=== PATIENT | male | born 1975 | race American Indian/Alaskan Native ===

== ENCOUNTER 2016-10-25 17:15 | Emergency (ER) | payer MEDICAID ==
[2016-10-25 17:30] VITALS: BMI 22.1
[2016-10-25 17:33] VITALS: TEMP 97.9
[2016-10-25] MEDS ORDERED: Sodium Chloride 0.9% 1,000 ML IV STA (17:53)
[2016-10-25 18:37] LABS: ADD MANUAL DIFF? NO
[2016-10-25 18:48] LABS: BASO # 0.03 K/mm3 (0.0-2.0); BASO % 0.8 % (0.0-3.0); EOS # 0.1 (0.0-0.7); EOS % 1.8 % (1.5-5.0); GRAN # 2.02 (1.4-6.5); GRAN % 53.1 % (50.0-68.0); HEMATOCRIT 37.2 % (42.0-52.0); LYMPH # 1.5 (1.2-3.4); LYMPH % 39.1 % (22.0-35.0); MEAN CELL VOLUME 99.2 fL (80.0-105.0); MEAN CORPUSCULAR HEMOGLOBIN 33.6 pg (25.0-35.0); MEAN CORPUSCULAR HGB CONC 33.9 g/dl (31.0-37.0); MEAN PLATELET VOLUME 9.7 fl (7.0-11.0); MONO # 0.2 (0.1-0.6); MONO % 5.2 % (1.0-6.0); PLATELET COUNT 136 10^3/uL (120.0-450.0); WHITE BLOOD COUNT 3.8 10^3/ul (4.5-11.0)
[2016-10-25 18:55] LABS: INR 1.14 (0.93-1.08)
[2016-10-25 18:57] LABS: ALKALINE PHOSPHATASE 232 U/L (38-133); ALT/SGPT 74 U/L (7-56); AST/SGOT 239 U/L (15-59); BILIRUBIN,TOTAL 1.4 mg/dL (0.2-1.3); BLOOD UREA NITROGEN 5 mg/dL (7-21); CALCIUM 8.6 mg/dL (8.4-10.5); CARBON DIOXIDE 31 mmol/L (21-33); CHLORIDE 102 mmol/L (98-107); GFR AFRICAN-AMERICAN > 60; GLUCOSE,RANDOM 101 mg/dL (70-110); LIPASE 24 U/L (23-300); SODIUM 144 mmol/L (132-148); TOTAL PROTEIN 7.7 g/dL (5.8-8.3)
--- NOTE | 2016-10-25 19:15 | ED PDOC ---
Arrival/HPI - General Chief Complaint: Abdominal Pain Time Seen by Provider: 10/25/16 17:34 Historian: Patient - History of Present Illness Narrative History of Present Illness (Text): 10/25/16 19:12 41yo male present in ED with complaint of epigastric abdominal pain. states pain started today. Admits to nausea, vomiting and diarrhea x one today. Denies fever, chills, melena, hematemesis, hematochezia, chest pain, SOB. Past Medical History - Provider Review Nursing Documentation Reviewed: Yes - Infectious Disease Hx of Infectious Diseases: None - Tetanus Immunization Tetanus Immunization: Unknown - Past Medical History Past Medical History: No Previous - Cardiac Hx Cardiac Disorders: No - Pulmonary Hx Respiratory Disorders: No Hx Tuberculosis: No - Neurological Hx Neurological Disorder: No Hx Seizures: No - HEENT Hx HEENT Disorder: No - Renal Hx Renal Disorder: No - Endocrine/Metabolic Hx Endocrine Disorders: No - Hematological/Oncological Hx Cancer: No - Integumentary Hx Dermatological Disorder: No - Musculoskeletal/Rheumatological Hx Musculoskeletal Disorders: No - Gastrointestinal Hx Gastrointestinal Disorders: Yes Hx Pancreatitis: Yes - Genitourinary/Gynecological Hx Genitourinary Disorders: No Hx Sexually Transmitted Diseases: No - Psychiatric Hx Psychophysiologic Disorder: No Hx Substance Use: No - Past Surgical History Past Surgical History: No Previous - Anesthesia Hx Anesthesia: No Hx Anesthesia Reactions: No Hx Malignant Hyperthermia: No - Suicidal Assessment Feels Threatened In Home Enviroment: No Family/Social History - Physician Review Nursing Documentation Reviewed: Yes Family/Social History: Unknown Family HX Smoking Status: Light Smoker < 10 Cigarettes Daily Hx Alcohol Use: Yes Frequency of alcohol use: Daily Amount per day: 24 Hx Substance Use: No Allergies/Home Meds Allergies/Adverse Reactions: Allergies No Known Allergies Allergy (Verified 10/25/16 17:30) Review of Systems - Physician Review All systems were reviewed & negative as marked: Yes - Review of Systems Constitutional: Normal Eyes: Normal ENT: Normal Respiratory: Normal Cardiovascular: Normal Gastrointestinal: Abdominal Pain, Diarrhea, Nausea, Vomiting. absent: Constipation, Hematochezia, Hematemesis Genitourinary Male: Normal Musculoskeletal: Normal Skin: Normal Neurological: Normal Endocrine: Normal Hemo/Lymphatic: Normal Psychiatric: Normal Physical Exam Vital Signs Reviewed: Yes Vital Signs Temp Pulse Resp BP Pulse Ox 10/25/16 19:23 85 18 152/84 H 95 10/25/16 17:30 97.9 F 68 16 125/89 100 Temperature: Afebrile Blood Pressure: Normal Pulse: Regular Respiratory Rate: Normal Appearance: Positive for: Well-Appearing, Non-Toxic, Comfortable Pain Distress: None Mental Status: Positive for: Alert and Oriented X 3 - Systems Exam Head: Present: Atraumatic, Normocephalic Pupils: Present: PERRL Extroacular Muscles: Present: EOMI Conjunctiva: Present: Normal Mouth: Present: Moist Mucous Membranes Neck: Present: Normal Range of Motion Respiratory/Chest: Present: Clear to Auscultation, Good Air Exchange. No: Respiratory Distress, Accessory Muscle Use Cardiovascular: Present: Regular Rate and Rhythm, Normal S1, S2. No: Murmurs Abdomen: Present: Tenderness (Mild epigastric tenderness with palpation), Normal Bowel Sounds. No: Distention, Peritoneal Signs, Rebound, Guarding, McBurney's Point Tender, Rovsing's Sign Present Back: Present: Normal Inspection Upper Extremity: Present: Normal Inspection. No: Cyanosis, Edema Lower Extremity: Present: Normal Inspection. No: Edema Neurological: Present: GCS=15, CN II-XII Intact, Speech Normal Skin: Present: Warm, Dry, Normal Color. No: Rashes Psychiatric: Present: Alert, Oriented x 3, Normal Insight, Normal Concentration Medical Decision Making ED Course and Treatment: 10/26/16 01:09 Pt presented for states history. He was noted to be comfortable in ED. He requested Dilaudid on presentation to ED, but was advised to wait for his lab result for indication of pancreatits, hence he alleged his pain is secondary to pancreatitis. He was treated with NS and pepcid. On re evaluation he states he feels better. Noted to be tolerating sandwich and juice in ED. Lab was noted for elevated LFT, which was his baseline. Result was DW the pt. He was DC home with a rx of Protonix. Referred to a GI. TRT ED for any new or worsening symptoms. - Lab Interpretations Lab Results: 10/25/16 18:30 10/25/16 18:30 Lab Results 10/25/16 18:30: WBC 3.8 L D, RBC 3.75, Hgb 12.6 L, Hct 37.2 L, MCV 99.2, MCH 33.6, MCHC 33.9, RDW 15.0 H, Plt Count 136, MPV 9.7, Gran % 53.1, Lymph % (Auto ) 39.1 H, Blount % (Auto) 5.2, Eos % (Auto) 1.8, Baso % (Auto) 0.8, Gran # 2.02, Lymph # 1.5, Blount # 0.2, Eos # 0.1, Baso # 0.03, PT 12.3 H, INR 1.14 H, APTT 29.0, Sodium 144, Potassium 3.0 L, Chloride 102, Carbon Dioxide 31, Anion Gap 14 , BUN 5 L, Creatinine 0.6, Est GFR ( Amer) > 60, Est GFR (Non-Af Amer) > 60, Random Glucose 101, Calcium 8.6, Total Bilirubin 1.4 H, AST 239 H, ALT 74 H , Alkaline Phosphatase 232 H, Total Protein 7.7, Albumin 3.8, Globulin 3.9, Albumin/Globulin Ratio 1.0 L, Lipase 24 - Medication Orders Current Medication Orders: Discontinued Medications Famotidine (Pepcid) 20 mg IVP STAT STA Stop: 10/25/16 17:54 Last Admin: 10/25/16 18:35 Dose: 20 MG IVP Administration Document 10/25/16 18:35 [facility] (Rec: 10/25/16 18:36 [place] [id number]) Charges for Administration # of IVP Administrations 1 Sodium Chloride (Sodium Chloride 0.9%) 1,000 mls @ 1,000 mls/hr IV .Q1H STA Stop: 10/25/16 18:52 Last Admin: 10/25/16 18:35 Dose: 1,000 MLS/HR eMAR Start Stop Document 10/25/16 18:35 [facility] (Rec: 10/25/16 18:35 [place] [id number]) Intravenous Solution Start Date 10/25/16 Start Time 18:35 End Date 10/25/16 End time 19:35 Total Infusion Time 60 Disposition/Present on Arrival - Present on Arrival Any Indicators Present on Arrival: No History of DVT/PE: No History of Uncontrolled Diabetes: No Urinary Catheter: No History of Decub. Ulcer: No History Surgical Site Infection Following: None - Disposition Have Diagnosis and Disposition been Completed?: Yes Diagnosis: Abdominal pain Disposition: HOME/ ROUTINE Disposition Time: 19:15 Patient Plan: Discharge Condition: STABLE Discharge Instructions (ExitCare): Abdominal Pain (ED) Additional Instructions: Follow up with a Gastroenterology Return to ED for any new or worsening symptoms Prescriptions: Pantoprazole Sodium [Protonix] 40 mg PO DAILY #15 ect Referrals: PCP,TESSIE [Primary Care Provider] - Follow up with primary João Diamond MD [Staff Provider] - Follow up with primary
[2016-10-25 19:23] VITALS: BP 152/84; PULSE 85; RESP 18; O2SAT 95
== END 2016-10-25 19:41 | disposition home or self-care (01) ==
LOC: ED 17:15
DX: R10.9 Unspecified abdominal pain (principal)
CPT/HCPCS: 80053; 83690; 85025; 85610; 85730; 96361; 96374; 99283; J7040

== ENCOUNTER 2016-10-29 15:23 | Inpatient (IN) | payer MEDICAID, OTHER ==
[2016-10-29 15:23] VITALS: BMI 22.1
[2016-10-29] MEDS ORDERED: Sodium Chloride 0.9% 1,000 ML IV STA (16:44)
[2016-10-29] MEDS ORDERED: Multivitamin (MVI) 10 ML, Thiamine 100 MG, Folic Acid 1 MG in Sodium Chloride 0.9% 1,00... IV ONE (17:11)
[2016-10-29 17:20] LABS: PH,URINE 6.5 (4.7-8.0); URINE APPEARANCE CLEAR (CLEAR); URINE BILIRUBIN SMALL (NEGATIVE); URINE BLOOD NEGATIVE (NEGATIVE); URINE COLOR DARK YELLOW (YELLOW); URINE GLUCOSE (UA) NEGATIVE (NEGATIVE); URINE KETONE TRACE mg/dL (NEGATIVE); URINE LEUKOCYTE ESTERASE NEGATIVE Leu/uL (NEGATIVE); URINE PROTEIN 100 mg/dL (<30 mg/dL)
[2016-10-29 17:24] LABS: ADD MANUAL DIFF? NO; BASO # 0.01 K/mm3 (0.0-2.0); BASO % 0.1 % (0.0-3.0); EOS # 0.1 (0.0-0.7); GRAN # 4.55 (1.4-6.5); GRAN % 67.6 % (50.0-68.0); HEMATOCRIT 35.6 % (42.0-52.0); LYMPH # 1.8 (1.2-3.4); LYMPH % 27.3 % (22.0-35.0); MEAN CELL VOLUME 98.3 fL (80.0-105.0); MEAN CORPUSCULAR HEMOGLOBIN 34.8 pg (25.0-35.0); MEAN CORPUSCULAR HGB CONC 35.4 g/dl (31.0-37.0); MEAN PLATELET VOLUME 10.3 fl (7.0-11.0); MONO # 0.3 (0.1-0.6); PLATELET COUNT 124 10^3/uL (120.0-450.0); RED CELL DISTRIBUTION WIDTH 14.3 % (11.5-14.5); WHITE BLOOD COUNT 6.7 10^3/ul (4.5-11.0)
[2016-10-29 17:37] LABS: ALKALINE PHOSPHATASE 226 U/L (38-133); ALT/SGPT 72 U/L (7-56); AMYLASE 93 U/L (35-125); AST/SGOT 189 U/L (15-59); BILIRUBIN,TOTAL 3.1 mg/dL (0.2-1.3); BLOOD UREA NITROGEN 4 mg/dL (7-21); CALCIUM 9.3 mg/dL (8.4-10.5); CARBON DIOXIDE 35 mmol/L (21-33); CHLORIDE 94 mmol/L (98-107); GFR AFRICAN-AMERICAN > 60; GLUCOSE,RANDOM 96 mg/dL (70-110); LIPASE 13 U/L (23-300); SODIUM 137 mmol/L (132-148); TOTAL PROTEIN 7.8 g/dL (5.8-8.3)
[2016-10-29 17:42] LABS: POTASSIUM 2.8 mmol/L (3.6-5.0)
[2016-10-29] MEDS ORDERED: Potassium Chloride 20 mEq ER Tab PO STA (17:43)
[2016-10-29] MEDS ORDERED: Potassium Chloride 20 mEq 100 ML IVPB ONE (17:43)
[2016-10-29 17:45] LABS: URINE BACTERIA FEW (NEG); URINE EPITHELIAL CELLS 0 - 2 /hpf (0-5); URINE RBC NEGATIVE /hpf (0-2)
--- NOTE | 2016-10-29 19:28 | ED PDOC ---
Arrival/HPI - General Chief Complaint: Abdominal Pain Time Seen by Provider: 10/29/16 16:08 Historian: Patient - History of Present Illness Narrative History of Present Illness (Text): 10/29/16 19:28 41yr old male presents today with epigastric abdominal pain. pt states he has hx of pancreatitis and recently started drinking again and for the past month has been having abdominal pain. pt denies chest pain or shortness of breath. no fever/chills. denies urinary symptoms. pt states he vomited 4 times daily. denies back pain. no other complaints. Past Medical History - Provider Review Nursing Documentation Reviewed: Yes - Travel History Have you recently traveled outside [place] w/in the past 3 mons?: No - Infectious Disease Hx of Infectious Diseases: None - Tetanus Immunization Tetanus Immunization: Unknown - Past Medical History Past Medical History: No Previous - Cardiac Hx Cardiac Disorders: No - Pulmonary Hx Respiratory Disorders: No Hx Tuberculosis: No - Neurological Hx Neurological Disorder: No Hx Seizures: No - HEENT Hx HEENT Disorder: No - Renal Hx Renal Disorder: No - Endocrine/Metabolic Hx Endocrine Disorders: No - Hematological/Oncological Hx Cancer: No - Integumentary Hx Dermatological Disorder: No - Musculoskeletal/Rheumatological Hx Musculoskeletal Disorders: No - Gastrointestinal Hx Gastrointestinal Disorders: Yes Hx Pancreatitis: Yes - Genitourinary/Gynecological Hx Genitourinary Disorders: No Hx Sexually Transmitted Diseases: No - Psychiatric Hx Psychophysiologic Disorder: No Hx Substance Use: No - Past Surgical History Past Surgical History: No Previous - Anesthesia Hx Anesthesia: No Hx Anesthesia Reactions: No Hx Malignant Hyperthermia: No - Suicidal Assessment Feels Threatened In Home Enviroment: No Family/Social History - Physician Review Nursing Documentation Reviewed: Yes Family/Social History: Unknown Family HX Smoking Status: Light Smoker < 10 Cigarettes Daily Hx Alcohol Use: Yes Amount per day: 24 Hx Substance Use: No Allergies/Home Meds Allergies/Adverse Reactions: Allergies No Known Allergies Allergy (Verified 10/29/16 16:02) Review of Systems - Review of Systems Constitutional: absent: Fatigue, Fevers Respiratory: absent: SOB, Cough Cardiovascular: absent: Chest Pain, Palpitations Gastrointestinal: Abdominal Pain, Nausea, Vomiting. absent: Constipation, Diarrhea Genitourinary Male: absent: Dysuria, Frequency, Hematuria Musculoskeletal: absent: Arthralgias, Back Pain, Neck Pain Skin: absent: Rash, Pruritis Neurological: absent: Headache, Dizziness Physical Exam Vital Signs Reviewed: Yes Vital Signs Temp Pulse Resp BP Pulse Ox 10/29/16 19:51 98.6 F 10/29/16 19:49 88 16 146/111 H 100 10/29/16 17:23 79 18 148/89 97 10/29/16 15:57 99.5 F 88 18 151/95 H 97 Temperature: Afebrile Blood Pressure: Hypertensive Pulse: Regular Respiratory Rate: Normal Appearance: Positive for: Well-Appearing, Non-Toxic, Comfortable Pain Distress: None Mental Status: Positive for: Alert and Oriented X 3 - Systems Exam Head: Present: Atraumatic Mouth: Present: Moist Mucous Membranes Neck: Present: Normal Range of Motion Respiratory/Chest: Present: Clear to Auscultation, Good Air Exchange. No: Respiratory Distress, Accessory Muscle Use Cardiovascular: Present: Regular Rate and Rhythm, Normal S1, S2. No: Murmurs Abdomen: Present: Tenderness (+ epigastric and luq tenderness), Normal Bowel Sounds. No: Distention, Peritoneal Signs, Rebound, Guarding, McBurney's Point Tender Back: Present: Normal Inspection. No: CVA Tenderness Upper Extremity: Present: Normal Inspection Lower Extremity: Present: Normal Inspection Neurological: Present: GCS=15, Speech Normal Skin: Present: Warm, Dry, Normal Color. No: Rashes Psychiatric: Present: Alert, Oriented x 3 Medical Decision Making ED Course and Treatment: 10/29/16 19:30 Patient is nontoxic well appearing with stable vital signs presenting with epigastric and luq/ruq abdominal pain CBC wnl CMP: k; 2.8 elevated LFTS, 3.1 bili Amylase wnl Lipase wnl Urinalysis + nitrates + trichomonasis Ultrasound: FINDINGS: Gallbladder: Appears mildly contracted. Contains a 5 x 4.4 mm round, echogenic, non-shadowing, non-mobile focus, located in the gallbladder fundus, most likely representing a small gallbladder polyp. No definite shadowing gallstones seen. No significant gallbladder wall thickening noted. No evidence of pericholecystic fluid. Reportedly negative sonographic Alvarnega's sign. Common bile duct: Measures 7.7 mm in diameter (normal less than 6 mm). Liver: Demonstrates diffusely increased parenchymal echogenicity, most compatible with fatty infiltration. Otherwise within normal limits in appearance. Measures 14 cm in length. Normal flow seen in the main portal vein on color and Doppler imaging. Pancreas: Incompletely seen due to gas. Grossly normal in appearance sonographically. The pancreatic calcifications seen on the prior CT abdomen are not well visualized by ultrasound. Right kidney: Within normal limits in appearance. Measures 11 cm in length. No evidence of hydronephrosis. Left kidney: Within normal limits in appearance. Measures 10.4 cm in length. No evidence of hydronephrosis. Spleen: Poorly seen due to gas. Grossly normal in appearance. Measures 8.3 cm in length. Aorta: Imaged portions appear unremarkable. Flow is seen on color and Doppler imaging. IVC: Imaged portions appear unremarkable. Flow is seen on color and Doppler imaging. IMPRESSION: Mild dilatation of the common bile duct, 7.7 mm, cause not identified. Recommend correlation with LFTs for laboratory evidence of biliary obstruction. Otherwise, no evidence of significant acute process. 5 mm gallbladder polyp. No evidence of gallstones or acute cholecystitis. See above for remaining findings. pt had ct of abd/pelvis; last month. Patient reassessment: after protonix patient sleeping in er blood cultures pending zosyn IV for UTI pt was not treated for trichomoniasis in the emergency room as the patient has been drinking alcohol today Case discussed in depth with Dr. valenzuela accepts admission to telemetry for hypokalemia, common bile duct dilatation of abdominal pain and alcohol abuse elevated liver function tests The patient will need further evaluation for the possibility of biliary obstruction. will place the patient on tele for hypokalemia with concern for the development of possible etoh withdrawal. Discussed all results with patient in depth Impression: Hypokalemia,, and bile duct dilatation, abdominal pain, alcohol abuse, trichomoniasis admit tele - Medication Orders Current Medication Orders: Piperacillin Sod/Tazobactam Sod (Zosyn 3.375 In Ns 100ml) 100 mls @ 200 mls/hr IVPB STAT STA PRN Reason: Protocol Stop: 10/29/16 20:44 Discontinued Medications Sodium Chloride (Sodium Chloride 0.9%) 1,000 mls @ 999 mls/hr IV .Q1H1M STA Stop: 10/29/16 17:44 Last Admin: 10/29/16 17:23 Dose: 999 MLS/HR eMAR Start Stop Document 10/29/16 17:23 (Rec: 10/29/16 17:23 [facility] [id number]) Intravenous Solution Start Date 10/29/16 Start Time 17:23 Multivitamins/Vitamin C 10 ml/Thiamine HCl 100 mg/ Folic Acid 1 mg/ Sodium Chloride 1,011.2 mls @ 1,000 mls/hr IV .Q1H1M ONE Stop: 10/29/16 18:11 Last Admin: 10/29/16 19:39 Dose: 1,000 MLS/HR eMAR Start Stop Document 10/29/16 19:39 ALIE (Rec: 10/29/16 19:39 [id number]) Intravenous Solution Start Date 10/29/16 Start Time 19:39 End Date 10/29/16 End time 20:39 Total Infusion Time 60 Potassium Chloride (Potassium Chloride 20 Meq/100 Ml) 100 mls @ 50 mls/hr IVPB ONCE ONE Stop: 10/29/16 19:42 Last Admin: 10/29/16 18:27 Dose: 50 MLS/HR eMAR Start Stop Document 10/29/16 18:27 (Rec: 10/29/16 18:28 [facility] [id number]) Intravenous Solution Start Date 10/29/16 Start Time 18:28 Morphine Sulfate (Morphine) 4 mg IVP STAT STA Stop: 10/29/16 20:18 Ondansetron HCl (Zofran Inj) 4 mg IVP STAT STA Stop: 10/29/16 16:52 Last Admin: 10/29/16 17:23 Dose: 4 MG IVP Administration Document 10/29/16 17:23 (Rec: 10/29/16 17:23 [facility] [id number]) Charges for Administration # of IVP Administrations 1 Pantoprazole Sodium (Protonix Inj) 40 mg IVP STAT STA Stop: 10/29/16 16:51 Last Admin: 10/29/16 17:23 Dose: 40 MG IVP Administration Document 10/29/16 17:23 (Rec: 10/29/16 17:23 [facility] [id number]) Charges for Administration # of IVP Administrations 1 Potassium Chloride (K-Dur 20 Meq Er Tab) 40 meq PO STAT STA Stop: 10/29/16 17:44 Last Admin: 10/29/16 18:21 Dose: 40 MEQ ED OBSERVATION Date of observation admission: 10/29/16 Time of observation admission: 16:45 - Observation admission statement Patient is being placed in observation because:: abdominal pain - Goals of Observation Goals of observation are:: improvement in symptoms - Progress Note Progress Note: 10/29/16 18:30 pt sleeping in er. no distress. 10/29/16 20:32 pt c/o pain; morphine added. Disposition/Present on Arrival - Present on Arrival Any Indicators Present on Arrival: No History of DVT/PE: No History of Uncontrolled Diabetes: No Urinary Catheter: No History of Decub. Ulcer: No History Surgical Site Infection Following: None - Disposition Have Diagnosis and Disposition been Completed?: Yes Diagnosis: Abdominal pain, Trichomonas infection, Common bile duct dilatation, Urinary tract infection, Elevated LFTs Disposition: HOSPITALIZED Disposition Time: 20:32 Patient Plan: Telemetry Patient Problems: Current Active Problems Problem Status Diagnosed Abdominal pain Acute Trichomonas infection Acute Condition: FAIR
--- NOTE | 2016-10-29 20:13 | US ---
EXAM: US Abdomen Complete CLINICAL HISTORY: 41 years old, male; Pain; Abdominal pain; Epigastric; Additional info: Epigastric abd pain TECHNIQUE: Real-time ultrasound of the abdomen (complete) with image documentation. EXAM DATE/TIME: 10/29/2016 5:21 PM COMPARISON: Prior CT abdomen of 09/21/2016 FINDINGS: Gallbladder: Appears mildly contracted. Contains a 5 x 4.4 mm round, echogenic, non-shadowing, non-mobile focus, located in the gallbladder fundus, most likely representing a small gallbladder polyp. No definite shadowing gallstones seen. No significant gallbladder wall thickening noted. No evidence of pericholecystic fluid. Reportedly negative sonographic Alvarenga's sign. Common bile duct: Measures 7.7 mm in diameter (normal less than 6 mm). Liver: Demonstrates diffusely increased parenchymal echogenicity, most compatible with fatty infiltration. Otherwise within normal limits in appearance. Measures 14 cm in length. Normal flow seen in the main portal vein on color and Doppler imaging. Pancreas: Incompletely seen due to gas. Grossly normal in appearance sonographically. The pancreatic calcifications seen on the prior CT abdomen are not well visualized by ultrasound. Right kidney: Within normal limits in appearance. Measures 11 cm in length. No evidence of hydronephrosis. Left kidney: Within normal limits in appearance. Measures 10.4 cm in length. No evidence of hydronephrosis. Spleen: Poorly seen due to gas. Grossly normal in appearance. Measures 8.3 cm in length. Aorta: Imaged portions appear unremarkable. Flow is seen on color and Doppler imaging. IVC: Imaged portions appear unremarkable. Flow is seen on color and Doppler imaging. IMPRESSION: Mild dilatation of the common bile duct, 7.7 mm, cause not identified. Recommend correlation with LFTs for laboratory evidence of biliary obstruction. Otherwise, no evidence of significant acute process. 5 mm gallbladder polyp. No evidence of gallstones or acute cholecystitis. See above for remaining findings.
[2016-10-29] MEDS ORDERED: Piperacillin/Tazobact 3.375 gm 100 ML IVPB STA (20:15)
[2016-10-29] MEDS ORDERED: Morphine 4 mg/ml ISec IVP STA (20:17)
[2016-10-29] MEDS: Potassium Chloride 40 mEq/30 ml LIQ UD PO SCH (22:41)
--- NOTE | 2016-10-30 00:12 | CP.PCM.HP ---
<BhupinderKanu - Last Filed: 10/30/16 00:09> History of Present Illness - History of Present Illness History of Present Illness: Kanu Roe D.O. 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 Patient states that he started to get some pains but ignored it, and then during the day he began to get the pain again, epigastric, 04/30, intermittent, stabbing in nature, radiating outwards, not associated with alleviating or aggravating factors, but associated with nausea and multiple episodes of NBNB vomiting. Patient states that the pain is similar to his previous episodes but much worse in intensity. Patient admits that he has cut down on his drinking but still will drink about two 24 oz cans of 14% alcohol [place] on average, although today he drank 4 by 2pm. Patient when asked does admit that he has noted some yellowing in his eyes. Patient denies any other symptoms, including dysuria. Patient states that he has been defecating "a lot" but it has not exactly been diarrhea, just frequently, and that it has been somewhat dark. PMD: none PMH: as above PSH: denies SH: chronic alcoholism as noted above, 1/2ppd for 20 years for 10 pack years, ecstasy use for 2 months many years ago FH: mother and father had HTN, father also had DM Meds: denied Allergies: NKA Present on Admission - Present on Admission Any Indicators Present on Admission: No Review of Systems - Constitutional Constitutional: Chills, Fatigue. absent: Anorexia, Headache - EENT Eyes: absent: Blind Spots, Blurred Vision Ears: absent: Decreased Hearing, Ear Discharge Nose/Mouth/Throat: absent: Epistaxis, Nasal Congestion - Cardiovascular Cardiovascular: absent: Chest Pain, Dyspnea - Respiratory Respiratory: absent: Cough, Dyspnea, Hemoptysis - Gastrointestinal Gastrointestinal: Abdominal Pain, Nausea, Vomiting. absent: Constipation, Dysphagia - Genitourinary Genitourinary: absent: Dysuria, Flank Pain, Hematuria - Musculoskeletal Musculoskeletal: absent: Muscle Weakness, Myalgias - Integumentary Integumentary: Jaundice. absent: Pruritus, Rash, Skin Ulcer, Sores - Neurological Neurological: absent: Dizziness, Numbness, Focal Weakness, Loss of Vision Past Patient History - Infectious Disease Hx of Infectious Diseases: None - Tetanus Immunizations Tetanus Immunization: Unknown - Past Social History Smoking Status: Light Smoker < 10 Cigarettes Daily - CARDIAC Hx Cardiac Disorders: No - PULMONARY Hx Respiratory Disorders: No Hx Tuberculosis: No - NEUROLOGICAL Hx Neurological Disorder: No Hx Seizures: No - HEENT Hx HEENT Problems: No - RENAL Hx Chronic Kidney Disease: No - ENDOCRINE/METABOLIC Hx Endocrine Disorders: No - HEMATOLOGICAL/ONCOLOGICAL Hx Cancer: No - INTEGUMENTARY Hx Dermatological Problems: No - MUSCULOSKELETAL/RHEUMATOLOGICAL Hx Musculoskeletal Disorders: No - GASTROINTESTINAL Hx Gastrointestinal Disorders: Yes Hx Pancreatitis: Yes - GENITOURINARY/GYNECOLOGICAL Hx Genitourinary Disorders: No Hx Sexually Transmitted Disorders: No - PSYCHIATRIC Hx Psychophysiologic Disorder: No Hx Substance Use: No - SURGICAL HISTORY Hx Surgeries: No - ANESTHESIA Hx Anesthesia: No Hx Anesthesia Reactions: No Hx Malignant Hyperthermia: No Meds Allergies/Adverse Reactions: Allergies Allergy/AdvReac Type Severity Reaction Status Date / Time No Known Allergies Allergy Verified 10/29/16 16:02 Physical Exam - Constitutional Additional comments: well developed, skinny male in NAD - Head Exam Head Exam: ATRAUMATIC, NORMOCEPHALIC - Eye Exam Eye Exam: EOMI, PERRL, Scleral icterus - ENT Exam ENT Exam: Normal Oropharynx Additional comments: oropharynx is pink and dry - Neck Exam Neck exam: Positive for: Full Rom. Negative for: Tenderness - Respiratory Exam Respiratory Exam: Clear to Auscultation Bilateral. absent: Rales, Rhonchi, Wheezes - Cardiovascular Exam Cardiovascular Exam: RRR, +S1, +S2. absent: Gallop, Rubs, Systolic Murmur - GI/Abdominal Exam GI & Abdominal Exam: Guarding (mild at epigastrium), Normal Bowel Sounds, Soft, Tenderness (epigastric). absent: Distended - Extremities Exam Extremities exam: Positive for: normal capillary refill. Negative for: calf tenderness, pedal edema, tenderness - Back Exam Back exam: absent: paraspinal tenderness, vertebral tenderness - Neurological Exam Neurological exam: Alert, CN II-XII Intact, Oriented x3 Additional comments: mild UE tremor noted, mild asterixis - Skin Skin Exam: Dry, Intact Results - Vital Signs Recent Vital Signs: Last Vital Signs Temp 98.1 F 10/29/16 23:13 Pulse 61 10/29/16 23:13 Resp 16 10/29/16 23:13 BP 171/110 H 10/29/16 22:24 Pulse Ox 100 10/29/16 23:13 - Labs Result Diagrams: 10/29/16 17:28 10/29/16 17:28 Assessment & Plan - Assessment and Plan (Free Text) Assessment: 41 year old male with a PMH of alcoholism and chronic pancreatitis who presents with complaints of abdominal pain since last night Plan: 1. Abdominal pain with jaundice and transaminitis Possibly related to his dehydration vs complications from his chronic pancreatitis such as a stricture or hepatitis GI consulted Hepatitis panel ordered Will start on NS + 20 KCl @ 125 No leukocytosis Afebrile 2. Chronic alcoholism Finished banana bag Started on ativan 2q6 PO and 1q2 IV PRN Fluids as mentioned above [facility] protocol in place Had a lengthy conversation about alcohol abuse, patient somewhat open to getting help, will think about it and let us know 3. Hypokalemia Likely 2/2 vomiting Repleted with PO and IV Will check magnesium and replace if needed Will repeat CMP tomorrow AM and monitor 4. High blood pressure Likely a result of his withdrawing Given ativan 1 stat Will be monitoring closely at this time and not begin medications until we have more data points and we can control his withdrawal 5. Trichominiasis Will give metronidazole tomorrow given his recent alcohol use Patient was seen and examined at bedside and case was discussed at length with attending physician. - Date & Time Date: 10/30/16 Time: 00:09 <Henrry Smith P - Last Filed: 11/11/16 20:13> Results - Vital Signs Recent Vital Signs: Last Vital Signs Temp 98 F 11/01/16 08:45 Pulse 82 11/01/16 10:05 Resp 20 11/01/16 08:45 BP 150/90 11/01/16 10:05 Pulse Ox 98 11/01/16 08:45 - Labs Result Diagrams: 11/01/16 10:10 11/01/16 10:10 Attending/Attestation - Attestation I have personally seen and examined this patient.: Yes I have fully participated in the care of the patient.: Yes I have reviewed all pertinent clinical information: Yes
[2016-10-30] MEDS: Potassium Chloride 40 mEq/30 ml LIQ UD PO SCH ×3 (03:20→10:42)
[2016-10-30 07:40] LABS: ADD MANUAL DIFF? NO
[2016-10-30 07:49] LABS: BASO # 0.02 K/mm3 (0.0-2.0); BASO % 0.4 % (0.0-3.0); EOS # 0.1 (0.0-0.7); EOS % 1.5 % (1.5-5.0); GRAN % 63.9 % (50.0-68.0); HEMATOCRIT 33.2 % (42.0-52.0); LYMPH # 1.6 (1.2-3.4); LYMPH % 29.7 % (22.0-35.0); MEAN CELL VOLUME 101.2 fL (80.0-105.0); MEAN CORPUSCULAR HEMOGLOBIN 33.8 pg (25.0-35.0); MEAN CORPUSCULAR HGB CONC 33.4 g/dl (31.0-37.0); MEAN PLATELET VOLUME 10.7 fl (7.0-11.0); MONO # 0.2 (0.1-0.6); MONO % 4.5 % (1.0-6.0); PLATELET COUNT 120 10^3/uL (120.0-450.0); RED CELL DISTRIBUTION WIDTH 14.2 % (11.5-14.5); WHITE BLOOD COUNT 5.3 10^3/ul (4.5-11.0)
[2016-10-30 08:08] LABS: ALKALINE PHOSPHATASE 192 U/L (38-133); ALT/SGPT 59 U/L (7-56); AST/SGOT 201 U/L (15-59); BILIRUBIN,DIRECT 0.4 mg/dL (0.0-0.4); BILIRUBIN,TOTAL 5.1 mg/dL (0.2-1.3); BLOOD UREA NITROGEN 3 mg/dL (7-21); CALCIUM 8.8 mg/dL (8.4-10.5); CARBON DIOXIDE 30 mmol/L (21-33); CHLORIDE 103 mmol/L (95-110); GFR AFRICAN-AMERICAN > 60; GLUCOSE,RANDOM 105 mg/dL (70-110); POTASSIUM 4.7 mmol/L (3.6-5.0); SODIUM 138 mmol/L (132-148); TOTAL PROTEIN 6.4 g/dL (5.8-8.3)
--- NOTE | 2016-10-30 08:50 | CP.PCM.CON ---
<Radha Liang - Last Filed: 10/30/16 10:28> History of Present Illness - History of Present Illness History of Present Illness: Gastroenterology Fellow/PGY4 Consult Note 41 year old male with history of Polysubstance Abuse (alcohol, tobacco, ecstasy ) and chronic pancreatitis presenting with abdominal pain. Patient describes progressive epigastric pain without radiation to back, pain scale 10/10. He had three 24 ounce beers yesterday with last drink at 1PM prior to ER presentation. Associated chills, sweats, three bilious vomitus episodes, and two watery diarrhea episodes. Denies recent antibiotics, sick contacts, recent travel, bloating, indigestion, heartburn, chest pain, shortness of breath, melena, hematochezia, hematemesis, or unintentional weight loss. States quit ecstasy few months ago after use for one month. No prior EGD or colonoscopy. Family- Parents- Hypertension, Father-Diabetes; denies colon cancer, pancreatic cancer Social-1/[id number] years, 3-5 24-ounce beers/day x 10 years, ecstasy x 1 month, quit few months ago Surgery-none Review of Systems - Review of Systems Review of Systems: A 12-point review of systems negative except for as above Past Patient History - Infectious Disease Hx of Infectious Diseases: None - Tetanus Immunizations Tetanus Immunization: Unknown - Past Social History Smoking Status: Light Smoker < 10 Cigarettes Daily - CARDIAC Hx Cardiac Disorders: No - PULMONARY Hx Respiratory Disorders: No Hx Tuberculosis: No - NEUROLOGICAL Hx Neurological Disorder: No Hx Seizures: No - HEENT Hx HEENT Problems: No - RENAL Hx Chronic Kidney Disease: No - ENDOCRINE/METABOLIC Hx Endocrine Disorders: No - HEMATOLOGICAL/ONCOLOGICAL Hx Cancer: No - INTEGUMENTARY Hx Dermatological Problems: No - MUSCULOSKELETAL/RHEUMATOLOGICAL Hx Musculoskeletal Disorders: No - GASTROINTESTINAL Hx Gastrointestinal Disorders: Yes Hx Pancreatitis: Yes - GENITOURINARY/GYNECOLOGICAL Hx Genitourinary Disorders: No Hx Sexually Transmitted Disorders: No - PSYCHIATRIC Hx Psychophysiologic Disorder: No Hx Substance Use: No - SURGICAL HISTORY Hx Surgeries: No Hx Amputation: No Hx Appendectomy: No Hx Cardiac Catheterization: No Hx Cholecystectomy: No Hx Coronary Stent: No Hx Gastric Bypass Surgery: No Hx Hysterectomy: No Hx Joint Replacement: No Hx Kidney Transplant: No Hx Liver Transplant: No Hx Mastectomy: No Hx Musculoskeletal Surgery: No Hx Open Heart Surgery: No Hx Orthopedic Surgery: No Hx Splenectomy: No Hx Valve Replacement: No - ANESTHESIA Hx Anesthesia: No Hx Anesthesia Reactions: No Hx Malignant Hyperthermia: No Meds Allergies/Adverse Reactions: Allergies Allergy/AdvReac Type Severity Reaction Status Date / Time No Known Allergies Allergy Verified 10/29/16 16:02 - Medications Medications: Current Medications Folic Acid (Folic Acid) 1 mg PO DAILY [facility] Potassium Chloride 20 meq/ (Sodium Chloride) 1,010 mls @ 125 mls/hr IV .Q8H5M [facility] Last Admin: 10/30/16 06:16 Dose: 125 mls/hr Lorazepam (Ativan) 2 mg PO Q6H [facility] PRN Reason: Protocol Last Admin: 10/30/16 05:14 Dose: 2 mg Lorazepam (Ativan) 1 mg IVP Q2H PRN; Protocol PRN Reason: withdrawal Potassium Chloride (Potassium Chloride Oral Soln) 40 meq PO Q4H [facility] Stop: 10/30/16 10:31 Last Admin: 10/30/16 06:55 Dose: 40 meq Thiamine HCl (Vitamin B1 Tab) 100 mg PO DAILY [facility] Physical Exam - Constitutional Appears: Non-toxic, No Acute Distress - Head Exam Head Exam: ATRAUMATIC, NORMOCEPHALIC - Eye Exam Eye Exam: EOMI, PERRL, Scleral icterus Pupil Exam: PERRL. absent: Miosis, Mydriatic - ENT Exam ENT Exam: Mucous Membranes Moist, Normal Oropharynx - Neck Exam Neck exam: Positive for: Full Rom, Normal Inspection - Respiratory Exam Respiratory Exam: Clear to Auscultation Bilateral. absent: Rales, Rhonchi, Wheezes - Cardiovascular Exam Cardiovascular Exam: RRR, +S1, +S2. absent: Gallop, Rubs - GI/Abdominal Exam GI & Abdominal Exam: Guarding, Normal Bowel Sounds, Soft, Tenderness. absent: Distended, Firm, Organomegaly, Rebound, Rigid Additional comments: epigastric tenderness to palpation - Extremities Exam Extremities exam: Positive for: normal inspection. Negative for: pedal edema - Neurological Exam Neurological exam: Alert - Psychiatric Exam Psychiatric exam: Normal Affect, Normal Mood - Skin Skin Exam: Dry, Intact, Normal Color, Warm Results - Vital Signs Recent Vital Signs: Last Vital Signs Temp 98.2 F 10/30/16 06:00 Pulse 56 L 10/30/16 06:00 Resp 18 10/30/16 06:00 BP 158/96 H 10/30/16 06:00 Pulse Ox 100 10/30/16 06:00 - Labs Result Diagrams: 10/30/16 07:00 10/30/16 07:00 Labs: Laboratory Results - last 24 hr 10/30/16 07:00 WBC 5.3 D RBC 3.28 L Hgb 11.1 L Hct 33.2 L MCV 101.2 MCH 33.8 MCHC 33.4 RDW 14.2 Plt Count 120 MPV 10.7 Gran % 63.9 Lymph % (Auto) 29.7 [place] % (Auto) 4.5 Eos % (Auto) 1.5 Baso % (Auto) 0.4 Gran # 3.40 Lymph # 1.6 [place] # 0.2 Eos # 0.1 Baso # 0.02 Sodium 138 Potassium 4.7 Chloride 103 Carbon Dioxide 30 Anion Gap 10 BUN 3 L Creatinine 0.7 Est GFR ( Amer) > 60 Est GFR (Non-Af Amer) > 60 Random Glucose 105 Calcium 8.8 Total Bilirubin 5.1 H Direct Bilirubin 0.4 AST 201 H ALT 59 H Alkaline Phosphatase 192 H Total Protein 6.4 Albumin 3.2 Globulin 3.2 Albumin/Globulin Ratio 1.0 L HIV-1 Ab Rapid Screen Non reactive Assessment & Plan - Assessment and Plan (Free Text) Assessment: 41 year old male with history of Polysubstance Abuse (alcohol, tobacco, ecstasy ) and chronic pancreatitis presenting with epigastric pain. Laboratory findings of unconjugated hyperbilirubinemia and transaminitis. Ultrasound showing 7.7mm CBD dilatation and 5 x 4.4mm gallbladder polyp. No prior EGD or colonoscopy. Plan: >likely alcoholic hepatitis >pending PT/INR to calculate DF- evaluate for utility of steroid therapy >obtain MRCP to evaluate for choledocholithiasis, mass lesion >pending Hepatitis panel, autoimmune workup, GGT >evaluate for hemolysis- haptoglobin, reticulocyte count, LDH >ordered APAP, pending UDS >supportive care: IVFs, antiemetics, pain control >U/A-trichomonas- medical team managing >further recommendations based on results of workup <Angel Joyner - Last Filed: 10/30/16 15:46> Meds - Medications Medications: Current Medications Folic Acid (Folic Acid) 1 mg PO DAILY [facility] Last Admin: 10/30/16 09:43 Dose: 1 mg Folic Acid 1 mg/ Thiamine HCl 100 mg/ Multivitamins/Vitamin C 10 ml/ Dextrose 1 ,011.2 mls @ 100 mls/hr IV .Q10H7M [facility] Last Admin: 10/30/16 10:43 Dose: 100 mls/hr Dextrose/Sodium Chloride (Dextrose 5%/0.9% Ns 1000 Ml) 1,000 mls @ 125 mls/hr IV .Q8H [facility] Lorazepam (Ativan) 2 mg PO Q6H [facility] PRN Reason: Protocol Last Admin: 10/30/16 10:43 Dose: 2 mg Lorazepam (Ativan) 1 mg IVP Q2H PRN; Protocol PRN Reason: withdrawal Morphine Sulfate (Morphine) 1 mg IVP Q4H PRN PRN Reason: Pain, Mild (1-3) Last Admin: 10/30/16 12:37 Dose: 1 mg Multivitamins/Vitamin C (Multi-Delyn Liquid) 15 ml PO DAILY [facility] Last Admin: 10/30/16 13:40 Dose: Not Given Nicotine (Nicoderm Cq) 1 patch TD DAILY [facility] Last Admin: 10/30/16 10:42 Dose: 1 patch Pantoprazole Sodium (Protonix Inj) 40 mg IVP DAILY [facility] Last Admin: 10/30/16 10:42 Dose: 40 mg Thiamine HCl (Vitamin B1 Tab) 100 mg PO DAILY [facility] Last Admin: 10/30/16 09:43 Dose: 100 mg Results - Vital Signs Recent Vital Signs: Last Vital Signs Temp 98.5 F 10/30/16 12:00 Pulse 80 10/30/16 12:33 Resp 20 10/30/16 12:00 BP 178/128 H 10/30/16 12:33 Pulse Ox 100 10/30/16 06:00 - Labs Result Diagrams: 10/30/16 07:00 10/30/16 07:00 Labs: Laboratory Results - last 24 hr 10/30/16 10/30/16 10/30/16 07:00 08:00 09:15 WBC 5.3 D RBC 3.28 L Hgb 11.1 L Hct 33.2 L MCV 101.2 MCH 33.8 MCHC 33.4 RDW 14.2 Plt Count 120 MPV 10.7 Gran % 63.9 Lymph % (Auto) 29.7 [place] % (Auto) 4.5 Eos % (Auto) 1.5 Baso % (Auto) 0.4 Gran # 3.40 Lymph # 1.6 [place] # 0.2 Eos # 0.1 Baso # 0.02 Retic Count PT 11.5 INR 1.06 Sodium 138 Potassium 4.7 Chloride 103 Carbon Dioxide 30 Anion Gap 10 BUN 3 L Creatinine 0.7 Est GFR ( Amer) > 60 Est GFR (Non-Af Amer) > 60 Random Glucose 105 Calcium 8.8 Total Bilirubin 5.1 H Direct Bilirubin 0.4 GGT 626 H AST 201 H ALT 59 H Alkaline Phosphatase 192 H Lactate Dehydrogenase 681 Total Protein 6.4 Albumin 3.2 Globulin 3.2 Albumin/Globulin Ratio 1.0 L Urine Opiates Screen Urine Methadone Screen Acetaminophen < 10.0 L Ur Barbiturates Screen Ur Phencyclidine Scrn Ur Amphetamines Screen U Benzodiazepines Scrn U Oth Cocaine Metabols U Cannabinoids Screen Hepatitis A IgM Ab Negative Hep Bs Antigen Negative Hep B Core IgM Ab Negative Hepatitis C Antibody Negative HIV-1 Ab Rapid Screen Non reactive 10/30/16 10/30/16 09:40 12:50 WBC RBC Hgb Hct MCV MCH MCHC RDW Plt Count MPV Gran % Lymph % (Auto) [place] % (Auto) Eos % (Auto) Baso % (Auto) Gran # Lymph # [place] # Eos # Baso # Retic Count 1.84 H PT INR Sodium Potassium Chloride Carbon Dioxide Anion Gap BUN Creatinine Est GFR ( Amer) Est GFR (Non-Af Amer) Random Glucose Calcium Total Bilirubin Direct Bilirubin GGT AST ALT Alkaline Phosphatase Lactate Dehydrogenase Total Protein Albumin Globulin Albumin/Globulin Ratio Urine Opiates Screen Negative Urine Methadone Screen Negative Acetaminophen Ur Barbiturates Screen Negative Ur Phencyclidine Scrn Negative Ur Amphetamines Screen Negative U Benzodiazepines Scrn Negative U Oth Cocaine Metabols Negative U Cannabinoids Screen Negative Hepatitis A IgM Ab Hep Bs Antigen Hep B Core IgM Ab Hepatitis C Antibody HIV-1 Ab Rapid Screen Attending/Attestation - Attestation I have personally seen and examined this patient.: Yes I have fully participated in the care of the patient.: Yes I have reviewed all pertinent clinical information: Yes Notes (Text): 10/30/16 11:40 41 year old male with history of EtOH abuse, chronic calcific pancreatitis admitted with abdominal pain and elevated LFTs. 1. Abdominal pain 2. Elevated LFTs 3. Chronic pancreatitis Plan: -abdominal pain is most likely related to chronic pancreatitis -considering abnormal LFTs and mildly dilated CBD, would recommend MRCP to r/o choledocholithaisis -otherwise, would treat supportively with pain control, hydration -advance diet as tolerated -abnormal transaminases are likely related to mild alcoholic hepatitis -abnormal bilirubin is predominantly unconjugated which suggests a different cause, possibly gilberts syndrome -alcohol abstinence advised -monitor daily lfts
--- NOTE | 2016-10-30 09:22 | CARD ---
APPROVED REPORT EKG Measurement Heart [id number] <Conclusion> Normal sinus rhythm Voltage criteria for left ventricular hypertrophy Prolonged QT, new
[2016-10-30 09:42] LABS: INR 1.06 (0.93-1.08)
[2016-10-30 09:51] LABS: RETIC% 1.84 % (0.5-1.5)
[2016-10-30] MEDS ORDERED: Dextrose 5%/0.9% NS 1,000 ML IV SCH (10:00)
[2016-10-30] MEDS ORDERED: Folic Acid 1 MG, Thiamine 100 MG, Multivitamin (MVI) 10 ML in Dextrose 5% In Water 1,00... IV SCH (10:00)
--- NOTE | 2016-10-30 10:02 | CP.PCM.PN ---
<Magali Melissa - Last Filed: 10/30/16 09:59> Subjective - Date & Time of Evaluation Date of Evaluation: 10/30/16 Time of Evaluation: 10:00 - Subjective Subjective: HOSPITALIST PROGRESS NOTE Pt seen and examined at bedside. Pt states that he began having epigastric abd pain about 2 nights ago. At first pain was intermittent but yesterday, pain was constant 10/10. Today pt states that pain is 7/10. Denies having any N/V/D /C. Pt states that pain feels similar to his previous episodes of pancreatitis. Pt drinks a couple of beers daily and last drink was yesterday morning. He denies having any tremors, diaphoresis, hallucinations. Objective - Vital Signs/Intake and Output Vital Signs (last 24 hours): Temp Pulse Resp BP Pulse Ox 98.2 F 56 L 18 158/96 H 100 10/30/16 06:00 10/30/16 06:00 10/30/16 06:00 10/30/16 06:00 10/30/16 06:00 Intake and Output: 10/30/16 10/30/16 06:59 18:59 Intake Total 2100 Balance 2100 - Medications Medications: Current Medications Folic Acid (Folic Acid) 1 mg PO DAILY [facility] Last Admin: 10/30/16 09:43 Dose: 1 mg Folic Acid 1 mg/ Thiamine HCl 100 mg/ Multivitamins/Vitamin C 10 ml/ Dextrose 1 ,011.2 mls @ 100 mls/hr IV .Q10H7M [facility] Dextrose/Sodium Chloride (Dextrose 5%/0.9% Ns 1000 Ml) 1,000 mls @ 125 mls/hr IV .Q8H [facility] Lorazepam (Ativan) 2 mg PO Q6H [facility] PRN Reason: Protocol Last Admin: 10/30/16 05:14 Dose: 2 mg Lorazepam (Ativan) 1 mg IVP Q2H PRN; Protocol PRN Reason: withdrawal Morphine Sulfate (Morphine) 1 mg IVP Q4H PRN PRN Reason: Pain, Mild (1-3) Nicotine (Nicoderm Cq) 1 patch TD DAILY [facility] Potassium Chloride (Potassium Chloride Oral Soln) 40 meq PO Q4H [facility] Stop: 10/30/16 10:31 Last Admin: 10/30/16 06:55 Dose: 40 meq Thiamine HCl (Vitamin B1 Tab) 100 mg PO DAILY [facility] Last Admin: 10/30/16 09:43 Dose: 100 mg - Labs Labs: 10/30/16 07:00 10/30/16 07:00 PT 11.5 Seconds (9.9-11.8) 10/30/16 09:15 INR 1.06 (0.93-1.08) 10/30/16 09:15 - Constitutional Appears: Non-toxic, No Acute Distress - Head Exam Head Exam: ATRAUMATIC - Eye Exam Eye Exam: Scleral icterus - ENT Exam ENT Exam: Mucous Membranes Moist - Respiratory Exam Respiratory Exam: Clear to Ausculation Bilateral. absent: Rales, Rhonchi, Wheezes - Cardiovascular Exam Cardiovascular Exam: REGULAR RHYTHM, +S1, +S2. absent: Gallop, Rubs, Murmur - GI/Abdominal Exam GI & Abdominal Exam: Soft, Normal Bowel Sounds. absent: Distended, Firm, Guarding, Rigid, Tenderness - Extremities Exam Extremities Exam: absent: Calf Tenderness, Pedal Edema - Neurological Exam Neurological Exam: Alert, Awake, Oriented x3 - Psychiatric Exam Psychiatric exam: Normal Affect, Normal Mood - Skin Skin Exam: Dry, Intact, Normal Color, Warm Assessment and Plan - Assessment and Plan (Free Text) Assessment: 41 year old male with a PMH of alcoholism and chronic pancreatitis is admitted for acute abdominal pain. Abd US done on admission showed mild dilation of CBD at 7.7 mm and a 5 mm gallbladder polyp; no cholecystitis or gallstones. Pt is afebrile and no leukocytosis. On blood work, pt had elevated T bili, AST, ALT and Alk phos but normal lipase. ETOH level was 29. Plan: 1. Abdominal pain with jaundice and transaminitis Possibly related to his dehydration vs complications from his chronic pancreatitis such as a stricture or hepatitis GI consulted. Will check tylenol level, hep panel, autoimmune tests for hepatitis, HIV, GGT Will get MRCP D5/NS at 125 cc Pain management with morphine 1 mg q4 prn 2. Chronic alcoholism Banana bag ordered Folic acid, thiamine, multivit PO Started on ativan 2q6 PO and 1q2 IV PRN CIWA protocol in place Had a lengthy conversation about alcohol abuse, patient somewhat open to getting help, will think about it and let us know 3. Macrocytic anemia T bili is 5.1 and D bili is 0.4 haptoglobin, retic count and LDH ordered to check for hemolysis. will follow up 4. Hypokalemia Likely 2/2 vomiting. Resolved Will check and replete as needed 5. High blood pressure Likely a result of his withdrawing Given ativan 1 stat Will be monitoring closely at this time and not begin medications until we have more data points and we can control his withdrawal 6. Trichominiasis Will give metronidazole in 2 days given his recent alcohol use 7. Prophylaxis - SCDs - Protonix Case discussed with attending Dr. Florez <Benson Florez B - Last Filed: 10/31/16 16:54> Objective - Vital Signs/Intake and Output Vital Signs (last 24 hours): Temp Pulse Resp BP Pulse Ox 98.4 F 61 18 132/96 H 100 10/31/16 16:00 10/31/16 16:00 10/31/16 16:00 10/31/16 16:00 10/31/16 16:00 Intake and Output: 10/31/16 10/31/16 06:59 18:59 Intake Total 1360 560 Balance 1360 560 - Medications Medications: Current Medications Clonidine HCl (Catapres) 0.1 mg PO Q6 PRN PRN Reason: Diastolic blood pressure Last Admin: 10/31/16 13:45 Dose: 0.1 mg Hydrochlorothiazide (Hydrodiuril) 25 mg PO DAILY [facility] Last Admin: 10/31/16 09:30 Dose: 25 mg Folic Acid 1 mg/ Thiamine HCl 100 mg/ Multivitamins/Vitamin C 10 ml/ Dextrose 1 ,011.2 mls @ 100 mls/hr IV .Q10H7M [facility] Last Admin: 10/31/16 10:28 Dose: 100 mls/hr Lorazepam (Ativan) 2 mg PO Q6H [facility] PRN Reason: Protocol Last Admin: 10/31/16 10:23 Dose: Not Given Lorazepam (Ativan) 1 mg IVP Q2H PRN; Protocol PRN Reason: withdrawal Morphine Sulfate (Morphine) 1 mg IVP Q4H PRN PRN Reason: Pain, Mild (1-3) Last Admin: 10/31/16 16:25 Dose: 1 mg Nicotine (Nicoderm Cq) 1 patch TD DAILY [facility] Last Admin: 10/31/16 09:29 Dose: 1 patch Pantoprazole Sodium (Protonix Inj) 40 mg IVP DAILY [facility] Last Admin: 10/31/16 09:29 Dose: 40 mg - Labs Labs: 10/31/16 06:30 10/31/16 06:30 PT 11.4 Seconds (9.9-11.8) 10/31/16 06:30 INR 1.06 (0.93-1.08) 10/31/16 06:30 Attending/Attestation - Attestation I have personally seen and examined this patient.: Yes I have fully participated in the care of the patient.: Yes I have reviewed all pertinent clinical information, including history, physical exam and plan: Yes Notes (Text): I have seen and examined patient at bedside. This is 41 year old male with history of alcoholism and chronic pancreatitis who got admitted for acute abdominal pain. US revealed dilated CBD. MRCP ordered. He also has transaminitis most likely secondary to alcohol. Hep panel, HIV and autoimmune work up ordered. Patient has unconjugated hyperbilirubinemia. GI consult appreciated. Continue banana bag and start ativan. Patient is homeless and patient is not interested in going to [facility]. Will consult administrator social welfare. Dr Benson Florez
[2016-10-30] MEDS ORDERED: Multiple Vitamins Oral Solution PO SCH (10:15)
--- NOTE | 2016-10-30 10:23 | RAD ---
HISTORY: abd pain COMPARISON: No prior. FINDINGS: LUNGS: No active pulmonary disease. PLEURA: No significant pleural effusion identified, no pneumothorax apparent. CARDIOVASCULAR: Normal. OSSEOUS STRUCTURES: Scoliosis VISUALIZED UPPER ABDOMEN: Normal. OTHER FINDINGS: None. IMPRESSION: No active disease.
--- NOTE | 2016-10-30 11:08 | MRI ---
PROCEDURE: Magnetic Resonance Cholangiopancreatography HISTORY: Hyperbilirubinemia, transaminitis COMPARISON: 09/21/2016 CT. TECHNIQUE: Multiplanar, multisequence MR images of the abdomen were obtained, including heavily T2 weighted MRCP images of the biliary system. Rotating maximum intensity projection images of the biliary system were generated. FINDINGS: MRCP: The common bile duct is of a normal caliber. No evidence of choledocholithiasis. No intrahepatic biliary ductal dilatation. LIVER: Unremarkable. GALLBLADDER: Unremarkable. SPLEEN: Unremarkable. PANCREAS: There is extensive calcification of the pancreas consistent with chronic pancreatitis. ADRENALS: Unremarkable. KIDNEYS: Unremarkable. AORTA: No aneurysm. ASCITES: None. OTHER FINDINGS: None. IMPRESSION: No evidence of common duct stone or obstruction. Calcified pancreas consistent with chronic pancreatitis
[2016-10-30] MEDS ORDERED: Labetalol 5 mg/ml Inj 20ML IV ONE (11:48)
[2016-10-30] MEDS: Morphine 2 mg/ml ISec IVP PRN ×3 (12:37→21:21)
[2016-10-30 16:40] LABS: IMMUNOGLOBULIN G 1222.1 mg/dL (700.0-1600.0)
[2016-10-30 16:41] LABS: IMMUNOGLOBULIN A 281.6 mg/dL (70.0-400.0); IMMUNOGLOBULIN M 103.7 mg/dL (40.0-230.0)
[2016-10-30] MEDS: Dextrose 5%/0.9% NS 1,000 ML IV SCH (21:07)
[2016-10-31] MEDS: Dextrose 5%/0.9% NS 1,000 ML IV SCH (04:41)
[2016-10-31 07:47] LABS: ADD MANUAL DIFF? NO
[2016-10-31 07:58] LABS: BASO # 0.02 K/mm3 (0.0-2.0); BASO % 0.3 % (0.0-3.0); EOS # 0.1 (0.0-0.7); EOS % 1.9 % (1.5-5.0); GRAN # 4.72 (1.4-6.5); GRAN % 67.2 % (50.0-68.0); HEMATOCRIT 34.4 % (42.0-52.0); LYMPH # 1.8 (1.2-3.4); LYMPH % 25.8 % (22.0-35.0); MEAN CELL VOLUME 102.4 fL (80.0-105.0); MEAN CORPUSCULAR HEMOGLOBIN 33.9 pg (25.0-35.0); MEAN CORPUSCULAR HGB CONC 33.1 g/dl (31.0-37.0); MEAN PLATELET VOLUME 10.6 fl (7.0-11.0); MONO # 0.3 (0.1-0.6); MONO % 4.8 % (1.0-6.0); PLATELET COUNT 130 10^3/uL (120.0-450.0); RED CELL DISTRIBUTION WIDTH 14.3 % (11.5-14.5)
[2016-10-31] MEDS: Morphine 2 mg/ml ISec IVP PRN ×4 (07:59→20:32)
[2016-10-31 08:02] LABS: INR 1.06 (0.93-1.08)
[2016-10-31 08:14] LABS: ALKALINE PHOSPHATASE 194 U/L (38-133); ALT/SGPT 51 U/L (7-56); AST/SGOT 106 U/L (15-59); BILIRUBIN,TOTAL 4.4 mg/dL (0.2-1.3); BLOOD UREA NITROGEN 4 mg/dL (7-21); CALCIUM 9.1 mg/dL (8.4-10.5); CARBON DIOXIDE 34 mmol/L (21-33); CHLORIDE 98 mmol/L (95-110); GFR AFRICAN-AMERICAN > 60; GLUCOSE,RANDOM 101 mg/dL (70-110); POTASSIUM 3.9 mmol/L (3.6-5.0); SODIUM 137 mmol/L (132-148); TOTAL PROTEIN 7.1 g/dL (5.8-8.3)
[2016-10-31] MEDS: Folic Acid 1 MG, Thiamine 100 MG, Multivitamin (MVI) 10 ML in Dextrose 5% In Water 1,00... IV SCH ×2 (10:28→21:56)
--- NOTE | 2016-10-31 10:32 | CP.PCM.PN ---
<Radha Liang - Last Filed: 10/31/16 12:05> Subjective - Date & Time of Evaluation Date of Evaluation: 10/31/16 Time of Evaluation: 10:20 - Subjective Subjective: Gastroenterology Fellow/PGY4 Progress Note Patient admits to unchanged abdominal pain, pain sale 01/28. Denies bowel movement. Tolerating clear liquids. A 12-point review of systems negative except for as above. Objective - Vital Signs/Intake and Output Vital Signs (last 24 hours): Temp Pulse Resp BP Pulse Ox 98.4 F 59 L 18 145/95 H 100 10/31/16 06:00 10/31/16 09:15 10/31/16 09:15 10/31/16 09:15 10/31/16 09:15 Intake and Output: 10/31/16 10/31/16 06:59 18:59 Intake Total 1360 Balance 1360 - Medications Medications: Current Medications Clonidine HCl (Catapres) 0.1 mg PO Q6 PRN PRN Reason: Diastolic blood pressure Last Admin: 10/31/16 07:59 Dose: 0.1 mg Hydrochlorothiazide (Hydrodiuril) 25 mg PO DAILY [facility] Last Admin: 10/31/16 09:30 Dose: 25 mg Folic Acid 1 mg/ Thiamine HCl 100 mg/ Multivitamins/Vitamin C 10 ml/ Dextrose 1 ,011.2 mls @ 100 mls/hr IV .Q10H7M [facility] Lorazepam (Ativan) 2 mg PO Q6H [facility] PRN Reason: Protocol Last Admin: 10/31/16 07:41 Dose: Not Given Lorazepam (Ativan) 1 mg IVP Q2H PRN; Protocol PRN Reason: withdrawal Morphine Sulfate (Morphine) 1 mg IVP Q4H PRN PRN Reason: Pain, Mild (1-3) Last Admin: 10/31/16 07:59 Dose: 1 mg Nicotine (Nicoderm Cq) 1 patch TD DAILY [facility] Last Admin: 10/31/16 09:29 Dose: 1 patch Pantoprazole Sodium (Protonix Inj) 40 mg IVP DAILY [facility] Last Admin: 10/31/16 09:29 Dose: 40 mg - Labs Labs: 10/31/16 06:30 10/31/16 06:30 PT 11.4 Seconds (9.9-11.8) 10/31/16 06:30 INR 1.06 (0.93-1.08) 10/31/16 06:30 - Constitutional Appears: Non-toxic, No Acute Distress - Head Exam Head Exam: ATRAUMATIC, NORMOCEPHALIC - Eye Exam Eye Exam: EOMI, PERRL, Scleral icterus Pupil Exam: PERRL. absent: Miosis, Mydriatic - ENT Exam ENT Exam: Mucous Membranes Moist, Normal Oropharynx - Neck Exam Neck Exam: Full ROM, Normal Inspection - Respiratory Exam Respiratory Exam: Clear to Ausculation Bilateral. absent: Rales, Rhonchi, Wheezes - Cardiovascular Exam Cardiovascular Exam: RRR, +S1, +S2. absent: Gallop, Rubs - GI/Abdominal Exam GI & Abdominal Exam: Soft, Tenderness, Normal Bowel Sounds. absent: Distended, Firm, Guarding, Rigid, Organomegaly, Rebound Additional comments: epigastric tenderness to palpation - Extremities Exam Extremities Exam: Full ROM. absent: Pedal Edema - Neurological Exam Neurological Exam: Alert, Awake - Psychiatric Exam Psychiatric exam: Normal Affect, Normal Mood - Skin Skin Exam: Dry, Intact, Normal Color, Warm Assessment and Plan - Assessment and Plan (Free Text) Assessment: 41 year old male with history of Polysubstance Abuse (alcohol, tobacco, ecstasy ) and chronic pancreatitis presenting with epigastric pain. Laboratory findings of unconjugated hyperbilirubinemia and transaminitis. Ultrasound showing 7.7mm CBD dilatation and 5 x 4.4mm gallbladder polyp. No prior EGD or colonoscopy. Plan: >DF on admission 12.5, today 11.3 >alcoholic hepatitis- no indication for steroids >abdominal pain due to chronic pancreatitis >start pancreaze enzymes, advance to full liquids >MRCP- no acute findings, chronic pancreatitis >negative Hepatitis panel, IgG/A/M, UDS, APAP >pending HADLEY, ASMA, AMA, LKM >unconjugated hyperbilirubinemia- likely Gilbert's syndrome >evaluate for hemolysis- pending haptoglobin, reticulocyte count, LDH >supportive care: IVFs, antiemetics, pain control >daily LFTs >counselled on alcohol cessation >will follow clinical course <Carlos Goldberg MD - Last Filed: 10/31/16 12:11> Objective - Vital Signs/Intake and Output Vital Signs (last 24 hours): Temp Pulse Resp BP Pulse Ox 98.4 F 59 L 18 145/95 H 100 10/31/16 06:00 10/31/16 09:15 10/31/16 09:15 10/31/16 09:15 10/31/16 09:15 Intake and Output: 10/31/16 10/31/16 06:59 18:59 Intake Total 1360 Balance 1360 - Medications Medications: Current Medications Clonidine HCl (Catapres) 0.1 mg PO Q6 PRN PRN Reason: Diastolic blood pressure Last Admin: 10/31/16 07:59 Dose: 0.1 mg Hydrochlorothiazide (Hydrodiuril) 25 mg PO DAILY [facility] Last Admin: 10/31/16 09:30 Dose: 25 mg Folic Acid 1 mg/ Thiamine HCl 100 mg/ Multivitamins/Vitamin C 10 ml/ Dextrose 1 ,011.2 mls @ 100 mls/hr IV .Q10H7M [facility] Last Admin: 10/31/16 10:28 Dose: 100 mls/hr Lorazepam (Ativan) 2 mg PO Q6H [facility] PRN Reason: Protocol Last Admin: 10/31/16 10:23 Dose: Not Given Lorazepam (Ativan) 1 mg IVP Q2H PRN; Protocol PRN Reason: withdrawal Morphine Sulfate (Morphine) 1 mg IVP Q4H PRN PRN Reason: Pain, Mild (1-3) Last Admin: 10/31/16 07:59 Dose: 1 mg Nicotine (Nicoderm Cq) 1 patch TD DAILY [facility] Last Admin: 10/31/16 09:29 Dose: 1 patch Pantoprazole Sodium (Protonix Inj) 40 mg IVP DAILY [facility] Last Admin: 10/31/16 09:29 Dose: 40 mg - Labs Labs: 10/31/16 06:30 10/31/16 06:30 PT 11.4 Seconds (9.9-11.8) 10/31/16 06:30 INR 1.06 (0.93-1.08) 10/31/16 06:30 Attending/Attestation - Attestation I have personally seen and examined this patient.: Yes I have fully participated in the care of the patient.: Yes I have reviewed all pertinent clinical information, including history, physical exam and plan: Yes Notes (Text): 10/31/16 12:09 Patient seen with GI fellow on rounds. This is a 41 year old male with history of EtOH abuse, chronic calcific pancreatitis admitted with abdominal pain and elevated LFTs in setting of mild alcoholic hepatitis and chronic pancreatitis. MRCP unremarkable. LFT downtrending. Advance diet as tolerated. Hepatitis serologies negative. Pain control and hydration. Alcohol cessation reinforced.
--- NOTE | 2016-10-31 13:33 | CP.PCM.PN ---
<Magali Melissa - Last Filed: 10/31/16 13:22> Subjective - Date & Time of Evaluation Date of Evaluation: 10/31/16 Time of Evaluation: 13:22 - Subjective Subjective: HOSPITALIST PROGRESS NOTE Pt is seen and examined at bedside. Abd pain has improved. Denies having any N /V/D/C, fevers, chills, tremors, hallucinations or anxiety. Patient felt diaphoretic overnight but not at this moment. Objective - Vital Signs/Intake and Output Vital Signs (last 24 hours): Temp Pulse Resp BP Pulse Ox 98.4 F 59 L 18 145/95 H 100 10/31/16 06:00 10/31/16 09:15 10/31/16 09:15 10/31/16 09:15 10/31/16 09:15 Intake and Output: 10/31/16 10/31/16 06:59 18:59 Intake Total 1360 Balance 1360 - Medications Medications: Current Medications Clonidine HCl (Catapres) 0.1 mg PO Q6 PRN PRN Reason: Diastolic blood pressure Last Admin: 10/31/16 07:59 Dose: 0.1 mg Hydrochlorothiazide (Hydrodiuril) 25 mg PO DAILY [facility] Last Admin: 10/31/16 09:30 Dose: 25 mg Folic Acid 1 mg/ Thiamine HCl 100 mg/ Multivitamins/Vitamin C 10 ml/ Dextrose 1 ,011.2 mls @ 100 mls/hr IV .Q10H7M [facility] Last Admin: 10/31/16 10:28 Dose: 100 mls/hr Lorazepam (Ativan) 2 mg PO Q6H [facility] PRN Reason: Protocol Last Admin: 10/31/16 10:23 Dose: Not Given Lorazepam (Ativan) 1 mg IVP Q2H PRN; Protocol PRN Reason: withdrawal Morphine Sulfate (Morphine) 1 mg IVP Q4H PRN PRN Reason: Pain, Mild (1-3) Last Admin: 10/31/16 12:11 Dose: 1 mg Nicotine (Nicoderm Cq) 1 patch TD DAILY [facility] Last Admin: 10/31/16 09:29 Dose: 1 patch Pantoprazole Sodium (Protonix Inj) 40 mg IVP DAILY [facility] Last Admin: 10/31/16 09:29 Dose: 40 mg - Labs Labs: 10/31/16 06:30 10/31/16 06:30 PT 11.4 Seconds (9.9-11.8) 10/31/16 06:30 INR 1.06 (0.93-1.08) 10/31/16 06:30 - Constitutional Appears: Non-toxic, No Acute Distress - Head Exam Head Exam: ATRAUMATIC - ENT Exam ENT Exam: Mucous Membranes Moist - Respiratory Exam Respiratory Exam: Clear to Ausculation Bilateral. absent: Rales, Rhonchi, Wheezes - Cardiovascular Exam Cardiovascular Exam: REGULAR RHYTHM, +S1, +S2. absent: Gallop, Rubs, Murmur - GI/Abdominal Exam GI & Abdominal Exam: Soft, Normal Bowel Sounds. absent: Distended, Firm, Guarding, Rigid, Tenderness - Extremities Exam Extremities Exam: absent: Calf Tenderness, Pedal Edema, Tenderness - Neurological Exam Neurological Exam: Alert, Awake, Oriented x3 - Psychiatric Exam Psychiatric exam: Normal Affect, Normal Mood - Skin Skin Exam: Dry, Intact, Normal Color, Warm Additional comments: no diaphoresis or tremors noted Assessment and Plan - Assessment and Plan (Free Text) Assessment: 41 year old male with a PMH of alcoholism and chronic pancreatitis is admitted for acute abdominal pain. Abd US done on admission showed mild dilation of CBD at 7.7 mm and a 5 mm gallbladder polyp; no cholecystitis or gallstones. Pt is afebrile and no leukocytosis. On blood work, pt had elevated T bili, AST, ALT and Alk phos but normal lipase. ETOH level was 29. MRCP done 10/30/16 showed no common duct stone or obstruction; showed calcified pancreas with chronic pancreatitis Plan: 1. Pancreatitis MRCP showed calcified pancreas with chronic pancreatitis GI consulted. Hep, HIV and Tylenol level negative autoimmune studies pending D5/water 100 cc Pain management with morphine 1 mg q4 prn Tolerating CLD and will advance as tolerated 2. Chronic alcoholism Folic acid, thiamine, multivit PO Ativan 2q6 PO and 1q2 IV PRN CIWA protocol in place Had a lengthy conversation about alcohol abuse, patient somewhat open to getting help, will think about it and let us know 3. Macrocytic anemia T bili is 5.1 and D bili is 0.4 Retic count is 1.84 LDH 681 haptoglobin pending 4. Hypokalemia Likely 2/2 vomiting. Resolved Will check and replete as needed 5. High blood pressure Likely a result of his withdrawing HCTZ 25 mg PO QD Clonidine .1 mg PO Q6 PRN 6. Trichominiasis Will give metronidazole in tomorrow due to recent ETOH use 7. Prophylaxis - SCDs - Protonix Case discussed with attending Dr. Florez <Benson Florez B - Last Filed: 10/31/16 17:05> Objective - Vital Signs/Intake and Output Vital Signs (last 24 hours): Temp Pulse Resp BP Pulse Ox 98.4 F 61 18 132/96 H 100 10/31/16 16:00 10/31/16 16:00 10/31/16 16:00 10/31/16 16:00 10/31/16 16:00 Intake and Output: 10/31/16 10/31/16 06:59 18:59 Intake Total 1360 560 Balance 1360 560 - Medications Medications: Current Medications Clonidine HCl (Catapres) 0.1 mg PO Q6 PRN PRN Reason: Diastolic blood pressure Last Admin: 10/31/16 13:45 Dose: 0.1 mg Hydrochlorothiazide (Hydrodiuril) 25 mg PO DAILY [facility] Last Admin: 10/31/16 09:30 Dose: 25 mg Folic Acid 1 mg/ Thiamine HCl 100 mg/ Multivitamins/Vitamin C 10 ml/ Dextrose 1 ,011.2 mls @ 100 mls/hr IV .Q10H7M [facility] Last Admin: 10/31/16 10:28 Dose: 100 mls/hr Lorazepam (Ativan) 2 mg PO Q6H [facility] PRN Reason: Protocol Last Admin: 10/31/16 10:23 Dose: Not Given Lorazepam (Ativan) 1 mg IVP Q2H PRN; Protocol PRN Reason: withdrawal Morphine Sulfate (Morphine) 1 mg IVP Q4H PRN PRN Reason: Pain, Mild (1-3) Last Admin: 10/31/16 16:25 Dose: 1 mg Nicotine (Nicoderm Cq) 1 patch TD DAILY [facility] Last Admin: 10/31/16 09:29 Dose: 1 patch Pantoprazole Sodium (Protonix Inj) 40 mg IVP DAILY [facility] Last Admin: 10/31/16 09:29 Dose: 40 mg - Labs Labs: 10/31/16 06:30 10/31/16 06:30 PT 11.4 Seconds (9.9-11.8) 10/31/16 06:30 INR 1.06 (0.93-1.08) 10/31/16 06:30 Attending/Attestation - Attestation I have personally seen and examined this patient.: Yes I have fully participated in the care of the patient.: Yes I have reviewed all pertinent clinical information, including history, physical exam and plan: Yes Notes (Text): I have seen and examined patient at bedside. This is 41 year old male with history of alcoholism and chronic pancreatitis who got admitted for acute abdominal pain which was secondary to chronic pancreatitis. He is also going thru alcohol withdrawal syndrome. He reports that he had anxiety, diaphoresis, mild tremors and palpitations in the morning however denies headache, visual or auditory hallucinations. US revealed dilated CBD. MRCP unremarkable. He also has transaminitis most likely secondary to alcohol. Hep panel, HIV negative. Autoimmune work up still pending Patient has unconjugated hyperbilirubinemia. Continue banana bag and taper ativan. Patient is homeless and patient is not interested in going to [facility]. Will consult licensed clinical social worker. Counselling for alcohol cessation provided. His abdominal pain has improved. He is not willing to try full liquid diet for lunch. Will order CLD for lunch and Full liquid for dinner. Will give flagyl for trichominiasis tomorrow. Dr Benson Florez
[2016-11-01] MEDS: Morphine 2 mg/ml ISec IVP PRN ×2 (04:39→08:30)
[2016-11-01 08:47] VITALS: RESP 20; TEMP 98; O2SAT 98
[2016-11-01 10:09] VITALS: BP 150/90; PULSE 82
[2016-11-01 10:38] LABS: HEMATOCRIT 32.5 % (42.0-52.0); MEAN CELL VOLUME 103.5 fL (80.0-105.0); MEAN CORPUSCULAR HEMOGLOBIN 34.1 pg (25.0-35.0); MEAN CORPUSCULAR HGB CONC 32.9 g/dl (31.0-37.0); RED CELL DISTRIBUTION WIDTH 14.2 % (11.5-14.5)
[2016-11-01 10:44] LABS: ALKALINE PHOSPHATASE 167 U/L (38-133); ALT/SGPT 54 U/L (7-56); AST/SGOT 68 U/L (15-59); BILIRUBIN,TOTAL 2.4 mg/dL (0.2-1.3); BLOOD UREA NITROGEN 5 mg/dL (7-21); CALCIUM 9.1 mg/dL (8.4-10.5); CARBON DIOXIDE 35 mmol/L (21-33); CHLORIDE 95 mmol/L (98-107); GFR AFRICAN-AMERICAN > 60; GLUCOSE,RANDOM 112 mg/dL (70-110); POTASSIUM 4.7 mmol/L (3.6-5.0); SODIUM 135 mmol/L (132-148); TOTAL PROTEIN 7.1 g/dL (5.8-8.3)
--- NOTE | 2016-11-01 13:13 | CP.PCM.PN ---
<Radha Liang - Last Filed: 11/01/16 13:09> Subjective - Date & Time of Evaluation Date of Evaluation: 11/01/16 Time of Evaluation: 13:09 - Subjective Subjective: Gastroenterology Fellow/PGY4 Progress Note Patient notes improving abdominal pain, pain scale 5/10. Small formed bowel movement this morning. Tolerating full liquids. A 12-point review of systems negative except for as above. Objective - Vital Signs/Intake and Output Vital Signs (last 24 hours): Temp Pulse Resp BP Pulse Ox 98 F 82 20 150/90 98 11/01/16 08:45 11/01/16 10:05 11/01/16 08:45 11/01/16 10:05 11/01/16 08:45 Intake and Output: 11/01/16 11/01/16 06:59 18:59 Intake Total 2100 0 Output Total 1150 Balance 950 0 - Medications Medications: Current Medications Amlodipine Besylate (Norvasc) 10 mg PO DAILY [facility] Last Admin: 11/01/16 10:05 Dose: 10 mg Amlodipine Besylate (Norvasc) 5 mg PO DAILY [facility] Hydrochlorothiazide (Hydrodiuril) 25 mg PO DAILY [facility] Last Admin: 11/01/16 10:05 Dose: 25 mg Folic Acid 1 mg/ Thiamine HCl 100 mg/ Multivitamins/Vitamin C 10 ml/ Dextrose 1 ,011.2 mls @ 100 mls/hr IV .Q10H7M [facility] Last Admin: 10/31/16 21:56 Dose: 100 mls/hr Lorazepam (Ativan) 1 mg IVP Q2H PRN; Protocol PRN Reason: withdrawal Morphine Sulfate (Morphine) 1 mg IVP Q4H PRN PRN Reason: Pain, Mild (1-3) Last Admin: 11/01/16 08:30 Dose: 1 mg Nicotine (Nicoderm Cq) 1 patch TD DAILY [facility] Last Admin: 11/01/16 10:05 Dose: 1 patch Pantoprazole Sodium (Protonix Inj) 40 mg IVP DAILY [facility] Last Admin: 11/01/16 10:06 Dose: 40 mg - Labs Labs: 11/01/16 10:10 11/01/16 10:10 PT 11.4 Seconds (9.9-11.8) 10/31/16 06:30 INR 1.06 (0.93-1.08) 10/31/16 06:30 - Constitutional Appears: Non-toxic, No Acute Distress - Head Exam Head Exam: ATRAUMATIC, NORMOCEPHALIC - Eye Exam Eye Exam: EOMI, PERRL Pupil Exam: PERRL. absent: Miosis, Mydriatic - ENT Exam ENT Exam: Mucous Membranes Moist, Normal Oropharynx - Neck Exam Neck Exam: Full ROM, Normal Inspection - Respiratory Exam Respiratory Exam: Clear to Ausculation Bilateral. absent: Rales, Rhonchi, Wheezes - Cardiovascular Exam Cardiovascular Exam: RRR, +S1, +S2. absent: Gallop, Rubs - GI/Abdominal Exam GI & Abdominal Exam: Soft, Tenderness, Normal Bowel Sounds. absent: Distended, Firm, Guarding, Rigid, Organomegaly, Rebound Additional comments: mild epigastric discomfort - Extremities Exam Extremities Exam: Full ROM. absent: Pedal Edema - Neurological Exam Neurological Exam: Alert, Awake - Psychiatric Exam Psychiatric exam: Normal Affect, Normal Mood - Skin Skin Exam: Dry, Intact, Normal Color, Warm Assessment and Plan - Assessment and Plan (Free Text) Assessment: 41 year old male with history of Polysubstance Abuse (alcohol, tobacco, ecstasy ) and chronic pancreatitis presenting with epigastric pain. Laboratory findings of unconjugated hyperbilirubinemia and transaminitis. Ultrasound showing 7.7mm CBD dilatation and 5 x 4.4mm gallbladder polyp. MRCP with no acute findings and calcifications of pancreas. No prior EGD or colonoscopy. Plan: >DF 12.5 on admission, yesterday 11.3 >alcoholic hepatitis- LFTs improving >start pancreaze enzymes in setting of chronic pancreatitis >advance to low fat diet >negative Hepatitis panel, IgG/A/M, UDS, APAP, HADLEY, ASMA, AMA; pending LKM >unconjugated hyperbilirubinemia-negative hemolysis workup >supportive care: IVFs, antiemetics, pain control >daily LFTs >counselled on alcohol and tobacco cessation >will benefit from outpatient follow up of chronic pancreatitis <Jordon Figueroa - Last Filed: 11/01/16 13:49> Objective - Vital Signs/Intake and Output Vital Signs (last 24 hours): Temp Pulse Resp BP Pulse Ox 98 F 82 20 150/90 98 11/01/16 08:45 11/01/16 10:05 11/01/16 08:45 11/01/16 10:05 11/01/16 08:45 Intake and Output: 11/01/16 11/01/16 06:59 18:59 Intake Total 2100 0 Output Total 1150 Balance 950 0 - Medications Medications: Current Medications Amlodipine Besylate (Norvasc) 5 mg PO DAILY [facility] Amylase (Pancrease 89258 U-5000 [id number] U) 54,000 u PO TID [facility] Hydrochlorothiazide (Hydrodiuril) 25 mg PO DAILY [facility] Last Admin: 11/01/16 10:05 Dose: 25 mg Folic Acid 1 mg/ Thiamine HCl 100 mg/ Multivitamins/Vitamin C 10 ml/ Dextrose 1 ,011.2 mls @ 100 mls/hr IV .Q10H7M [facility] Last Admin: 10/31/16 21:56 Dose: 100 mls/hr Lorazepam (Ativan) 1 mg IVP Q2H PRN; Protocol PRN Reason: withdrawal Morphine Sulfate (Morphine) 1 mg IVP Q4H PRN PRN Reason: Pain, Mild (1-3) Last Admin: 11/01/16 08:30 Dose: 1 mg Nicotine (Nicoderm Cq) 1 patch TD DAILY [facility] Last Admin: 11/01/16 10:05 Dose: 1 patch Pantoprazole Sodium (Protonix Inj) 40 mg IVP DAILY [facility] Last Admin: 11/01/16 10:06 Dose: 40 mg - Labs Labs: 11/01/16 10:10 11/01/16 10:10 PT 11.4 Seconds (9.9-11.8) 10/31/16 06:30 INR 1.06 (0.93-1.08) 10/31/16 06:30 Attending/Attestation - Attestation I have personally seen and examined this patient.: Yes I have fully participated in the care of the patient.: Yes I have reviewed all pertinent clinical information, including history, physical exam and plan: Yes Notes (Text): Patient seen and examined with GI fellow. Agree with her note as documented above with the following additions/exceptions. This is a 41 year old male with history of polysubstance abuse and chronic pancreatitis who is admitted with abdominal pain. He has indirect hyperbilirubinemia. MRCP with calcified pancreas. He feels overall improved today. He is tolerating liquid diet. Recommend advancing to low fat diet as tolerated. Add pancreatic enzymes with PPI. He was advised to abstain from ETOH/tobacco use. No further inpatient GI work up at this time. Please call with any questions. 11/01/16 13:47
--- NOTE | 2016-11-01 13:47 | CP.PCM.DIS ---
<Magali Melissa - Last Filed: 11/01/16 13:42> Provider - Provider Date of Admission: 10/29/16 20:29 Attending physician: Benson Florez MD Primary care physician: NO PRIMARY CARE PROVIDER Consults: GI: Dr. Bolaños Time Spent in preparation of Discharge (in minutes): 45 Diagnosis - Discharge Diagnosis (1) Trichomonas infection Status: Acute (2) Chronic pancreatitis Status: Chronic (3) Hypertension Status: Acute (4) Alcohol abuse Status: Acute Hospital Course - Lab Results Lab Results: Micro Results 10/29/16 20:40 Blood Blood Culture - Preliminary NO GROWTH AFTER 48 HOURS Most Recent Lab Values WBC 6.0 10^3/ul (4.5-11.0) 11/01/16 10:10 RBC 3.14 10^6/uL (3.5-6.1) L 11/01/16 10:10 Hgb 10.7 gm/dL (14.0-18.0) L 11/01/16 10:10 Hct 32.5 % (42.0-52.0) L 11/01/16 10:10 MCV 103.5 fL (80.0-105.0) 11/01/16 10:10 MCH 34.1 pg (25.0-35.0) 11/01/16 10:10 MCHC 32.9 g/dl (31.0-37.0) 11/01/16 10:10 RDW 14.2 % (11.5-14.5) 11/01/16 10:10 Plt Count 123 10^3/uL (120.0-450.0) 11/01/16 10:10 MPV 10.0 fl (7.0-11.0) 11/01/16 10:10 Gran % 67.2 % (50.0-68.0) 10/31/16 06:30 Lymph % (Auto) 25.8 % (22.0-35.0) 10/31/16 06:30 York % (Auto) 4.8 % (1.0-6.0) 10/31/16 06:30 Eos % (Auto) 1.9 % (1.5-5.0) 10/31/16 06:30 Baso % (Auto) 0.3 % (0.0-3.0) 10/31/16 06:30 Gran # 4.72 (1.4-6.5) 10/31/16 06:30 Lymph # 1.8 (1.2-3.4) 10/31/16 06:30 York # 0.3 (0.1-0.6) 10/31/16 06:30 Eos # 0.1 (0.0-0.7) 10/31/16 06:30 Baso # 0.02 K/mm3 (0.0-2.0) 10/31/16 06:30 Retic Count 1.84 % (0.5-1.5) H 10/30/16 09:40 Haptoglobin 117 mg/dL (43-212) 10/30/16 07:00 PT 11.4 Seconds (9.9-11.8) 10/31/16 06:30 INR 1.06 (0.93-1.08) 10/31/16 06:30 Sodium 135 mmol/L (132-148) 11/01/16 10:10 Potassium 4.7 mmol/L (3.6-5.0) 11/01/16 10:10 Chloride 95 mmol/L (98-107) L 11/01/16 10:10 Carbon Dioxide 35 mmol/L (21-33) H 11/01/16 10:10 Anion Gap 10 (10-20) 11/01/16 10:10 BUN 5 mg/dL (7-21) L 11/01/16 10:10 Creatinine 0.7 mg/dL (0.5-1.4) 11/01/16 10:10 Est GFR ( Amer) > 60 11/01/16 10:10 Est GFR (Non-Af Amer) > 60 11/01/16 10:10 Random Glucose 112 mg/dL (70-110) H 11/01/16 10:10 Calcium 9.1 mg/dL (8.4-10.5) 11/01/16 10:10 Magnesium 1.7 mg/dL (1.7-2.2) 10/29/16 17:28 Total Bilirubin 2.4 mg/dL (0.2-1.3) H 11/01/16 10:10 Direct Bilirubin 0.4 mg/dL (0.0-0.4) 10/30/16 07:00 GGT 626 U/L (8-78) H 10/30/16 08:00 AST 68 U/L (15-59) H 11/01/16 10:10 ALT 54 U/L (7-56) 11/01/16 10:10 Alkaline Phosphatase 167 U/L (38-133) H 11/01/16 10:10 Lactate Dehydrogenase 681 U/L (333-699) 10/30/16 08:00 Total Protein 7.1 g/dL (5.8-8.3) 11/01/16 10:10 Albumin 3.5 g/dL (3.0-4.8) 11/01/16 10:10 Globulin 3.6 gm/dL 11/01/16 10:10 Albumin/Globulin Ratio 1.0 (1.1-1.8) L 11/01/16 10:10 Amylase 93 U/L (35-125) 10/29/16 17:28 Lipase 13 U/L (23-300) L 10/29/16 17:28 Urine Color Dark yellow (YELLOW) 10/29/16 17:00 Urine Appearance Clear (CLEAR) 10/29/16 17:00 Urine pH 6.5 (4.7-8.0) 10/29/16 17:00 Ur Specific Hoople 1.025 (1.005-1.035) 10/29/16 17:00 Urine Protein 100 mg/dL (<30 mg/dL) H 10/29/16 17:00 Urine Glucose (UA) Negative mg/dL (NEGATIVE) 10/29/16 17:00 Urine Ketones Trace mg/dL (NEGATIVE) H 10/29/16 17:00 Urine Blood Negative (NEGATIVE) 10/29/16 17:00 Urine Nitrate Positive (NEGATIVE) H 10/29/16 17:00 Urine Bilirubin Small (NEGATIVE) H 10/29/16 17:00 Urine Urobilinogen 1.0 E.U./dL (<1 E.U./dL) H 10/29/16 17:00 Ur Leukocyte Esterase Negative Eliana/uL (NEGATIVE) 10/29/16 17:00 Urine RBC Negative /hpf (0-2) 10/29/16 17:00 Urine WBC 2 - 5 /hpf (0-6) 10/29/16 17:00 Ur Epithelial Cells 0 - 2 /hpf (0-5) 10/29/16 17:00 Urine Bacteria Few (NEG) 10/29/16 17:00 Urine Other Trichomonas 10/29/16 17:00 Urine Opiates Screen Negative (NEGATIVE) 10/30/16 12:50 Urine Methadone Screen Negative (NEGATIVE) 10/30/16 12:50 Acetaminophen < 10.0 ug/ml (10.0-20.0) L 10/30/16 07:00 Ur Barbiturates Screen Negative (NEGATIVE) 10/30/16 12:50 Ur Phencyclidine Scrn Negative (NEGATIVE) 10/30/16 12:50 Ur Amphetamines Screen Negative (NEGATIVE) 10/30/16 12:50 U Benzodiazepines Scrn Negative (NEGATIVE) 10/30/16 12:50 U Oth Cocaine Metabols Negative (NEGATIVE) 10/30/16 12:50 U Cannabinoids Screen Negative (NEGATIVE) 10/30/16 12:50 Alcohol, Quantitative 29 mg/dL (0-10) H 10/29/16 17:28 IgG 1222.1 mg/dL (700.0-1600.0) 10/30/16 07:00 IgA 281.6 mg/dL (70.0-400.0) 10/30/16 07:00 IgM 103.7 mg/dL (40.0-230.0) 10/30/16 07:00 HADLEY Screen Negative (Negative) 10/30/16 07:00 Anti-Mitochondrial Ab Negative (Negative) 10/30/16 07:00 Smooth Muscle Ab Titer TEST NOT PERFORMED 10/30/16 07:00 Anti-Smooth Muscle Ab Negative (Negative) 10/30/16 07:00 Hepatitis A IgM Ab Negative (NEGATIVE) 10/30/16 07:00 Hep Bs Antigen Negative (NEGATIVE) 10/30/16 07:00 Hep B Core IgM Ab Negative (NEGATIVE) 10/30/16 07:00 Hepatitis C Antibody Negative (NEGATIVE) 10/30/16 07:00 HIV-1 Ab Rapid Screen Non reactive (NON REAC) 10/30/16 07:00 HIV 1&2 Ag/Ab, 4th Gen Nonreactive (Nonreactive) 10/30/16 07:00 - Hospital Course Hospital Course: 41 year old male with a PMH of alcoholism and chronic pancreatitis who presents to [facility] ER on 10/29/16 with complaints of abdominal pain since last night. Patient states that he started to get some pains but ignored it, and then during the day he began to get the pain again, epigastric, 10/10, intermittent, stabbing in nature, radiating outwards, not associated with alleviating or aggravating factors, but associated with nausea and multiple episodes of NBNB vomiting. Patient states that the pain is similar to his previous episodes but much worse in intensity. Patient admits that he has cut down on his drinking but still will drink about two 24 oz cans of 14% alcohol Four Lokos on average, although today he drank 4 by 2pm. Patient when asked does admit that he has noted some yellowing in his eyes. Patient denies any other symptoms, including dysuria. Patient states that he has been defecating "a lot" but it has not exactly been diarrhea, just frequently, and that it has been somewhat dark. Abdominal ultrasound on admission showed mild dilation of CBD but no evidence of cholecystitis or gallstones. On blood work, patient had normal lipase and elevated LFTs and total bilirubin. MRCP done to rule out choledocholithiasis or mass lesion. It showed chronic pancreatitis with calcification of pancreas. GI was consulted. Work up done for elevated LFTs showed negative Tylenol level, HIV, hepatitis panel and negative auto-antibodies. During the stay, patient was on benzodiazepines and CIWA protocol for ETOH withdrawals. Patient was also found to have a trichomonas infection. Since he had been drinking the day he came in, he was treated on the day of discharge with Flagyl 2 g PO once. Patient was also found to be hypertensive during his stay. He was started on scheduled and prn medications to control his HTN. He was then discharged with 2 blood pressure medications. Patient's symptoms improved, he did not have any withdrawal symptoms and he was ambulating without difficulty and was stable when walking. Patient is asked to follow up with the [facility] clinic upon discharge. Discussed risks of excessive alcohol use and recommended cessation. Patient will be sent home with Hydrochlorothiazide 25 mg PO QD and Norvasc 5 mg PO QD. Scripts sent to [facility] [[email or web address]] [email or web address] [address] [place] [address]. Patient was given information about shelters. - Date & Time of H&P Date of H&P: 11/01/16 Time of H&P: 13:43 Discharge Exam - Head Exam Head Exam: ATRAUMATIC, NORMOCEPHALIC - ENT Exam ENT Exam: Mucous Membranes Moist - Respiratory Exam Respiratory Exam: Clear to PA & Lateral. absent: Rales, Rhonchi, Wheezes - Cardiovascular Exam Cardiovascular Exam: REGULAR RHYTHM, +S1, +S2. absent: Diastolic murmur, Gallop , Rubs, Systolic Murmur - GI/Abdominal Exam GI & Abdominal Exam: Normal Bowel Sounds, Soft. absent: Distended, Firm, Guarding, Rigid, Tenderness - Extremities Exam Additional comments: no edema or tenderness - Neurological Exam Neurological exam: Alert, Oriented x3 - Psychiatric Exam Psychiatric exam: Normal Affect, Normal Mood - Skin Skin Exam: Dry, Intact, Normal Color, Warm Discharge Plan - Discharge Medications Prescriptions: hydroCHLOROthiazide [Hydrodiuril] 25 mg PO DAILY #30 tab amLODIPine [Norvasc] 5 mg PO DAILY #30 tab - Follow Up Plan Condition: GOOD Disposition: HOME/ ROUTINE Instructions: Pancreatitis (DC), Alcohol Intoxication (DC), Alcohol Withdrawal (DC) Additional Instructions: Patient is asked to follow up with the [facility] clinic upon discharge. Discussed risks of excessive alcohol use and recommended cessation. Patient will be sent home with Hydrochlorothiazide 25 mg PO QD and Norvasc 5 mg PO QD. Scripts sent to [address] Patient was given information about shelters. Referrals: PCP,TESSIE [Primary Care Provider] - <Benson Florez - Last Filed: 11/01/16 16:15> Provider - Provider Date of Admission: 10/29/16 20:29 Attending physician: Benson Florez MD Primary care physician: NO PRIMARY CARE PROVIDER Hospital Course - Lab Results Lab Results: Micro Results 10/29/16 20:40 Blood Blood Culture - Preliminary NO GROWTH AFTER 48 HOURS Most Recent Lab Values WBC 6.0 10^3/ul (4.5-11.0) 11/01/16 10:10 RBC 3.14 10^6/uL (3.5-6.1) L 11/01/16 10:10 Hgb 10.7 gm/dL (14.0-18.0) L 11/01/16 10:10 Hct 32.5 % (42.0-52.0) L 11/01/16 10:10 MCV 103.5 fL (80.0-105.0) 11/01/16 10:10 MCH 34.1 pg (25.0-35.0) 11/01/16 10:10 MCHC 32.9 g/dl (31.0-37.0) 11/01/16 10:10 RDW 14.2 % (11.5-14.5) 11/01/16 10:10 Plt Count 123 10^3/uL (120.0-450.0) 11/01/16 10:10 MPV 10.0 fl (7.0-11.0) 11/01/16 10:10 Gran % 67.2 % (50.0-68.0) 10/31/16 06:30 Lymph % (Auto) 25.8 % (22.0-35.0) 10/31/16 06:30 York % (Auto) 4.8 % (1.0-6.0) 10/31/16 06:30 Eos % (Auto) 1.9 % (1.5-5.0) 10/31/16 06:30 Baso % (Auto) 0.3 % (0.0-3.0) 10/31/16 06:30 Gran # 4.72 (1.4-6.5) 10/31/16 06:30 Lymph # 1.8 (1.2-3.4) 10/31/16 06:30 York # 0.3 (0.1-0.6) 10/31/16 06:30 Eos # 0.1 (0.0-0.7) 10/31/16 06:30 Baso # 0.02 K/mm3 (0.0-2.0) 10/31/16 06:30 Retic Count 1.84 % (0.5-1.5) H 10/30/16 09:40 Haptoglobin 117 mg/dL (43-212) 10/30/16 07:00 PT 11.4 Seconds (9.9-11.8) 10/31/16 06:30 INR 1.06 (0.93-1.08) 10/31/16 06:30 Sodium 135 mmol/L (132-148) 11/01/16 10:10 Potassium 4.7 mmol/L (3.6-5.0) 11/01/16 10:10 Chloride 95 mmol/L (98-107) L 11/01/16 10:10 Carbon Dioxide 35 mmol/L (21-33) H 11/01/16 10:10 Anion Gap 10 (10-20) 11/01/16 10:10 BUN 5 mg/dL (7-21) L 11/01/16 10:10 Creatinine 0.7 mg/dL (0.5-1.4) 11/01/16 10:10 Est GFR ( Amer) > 60 11/01/16 10:10 Est GFR (Non-Af Amer) > 60 11/01/16 10:10 Random Glucose 112 mg/dL (70-110) H 11/01/16 10:10 Calcium 9.1 mg/dL (8.4-10.5) 11/01/16 10:10 Magnesium 1.7 mg/dL (1.7-2.2) 10/29/16 17:28 Total Bilirubin 2.4 mg/dL (0.2-1.3) H 11/01/16 10:10 Direct Bilirubin 0.4 mg/dL (0.0-0.4) 10/30/16 07:00 GGT 626 U/L (8-78) H 10/30/16 08:00 AST 68 U/L (15-59) H 11/01/16 10:10 ALT 54 U/L (7-56) 11/01/16 10:10 Alkaline Phosphatase 167 U/L (38-133) H 11/01/16 10:10 Lactate Dehydrogenase 681 U/L (333-699) 10/30/16 08:00 Total Protein 7.1 g/dL (5.8-8.3) 11/01/16 10:10 Albumin 3.5 g/dL (3.0-4.8) 11/01/16 10:10 Globulin 3.6 gm/dL 11/01/16 10:10 Albumin/Globulin Ratio 1.0 (1.1-1.8) L 11/01/16 10:10 Amylase 93 U/L (35-125) 10/29/16 17:28 Lipase 13 U/L (23-300) L 10/29/16 17:28 Urine Color Dark yellow (YELLOW) 10/29/16 17:00 Urine Appearance Clear (CLEAR) 10/29/16 17:00 Urine pH 6.5 (4.7-8.0) 10/29/16 17:00 Ur Specific Hoople 1.025 (1.005-1.035) 10/29/16 17:00 Urine Protein 100 mg/dL (<30 mg/dL) H 10/29/16 17:00 Urine Glucose (UA) Negative mg/dL (NEGATIVE) 10/29/16 17:00 Urine Ketones Trace mg/dL (NEGATIVE) H 10/29/16 17:00 Urine Blood Negative (NEGATIVE) 10/29/16 17:00 Urine Nitrate Positive (NEGATIVE) H 10/29/16 17:00 Urine Bilirubin Small (NEGATIVE) H 10/29/16 17:00 Urine Urobilinogen 1.0 E.U./dL (<1 E.U./dL) H 10/29/16 17:00 Ur Leukocyte Esterase Negative Eliana/uL (NEGATIVE) 10/29/16 17:00 Urine RBC Negative /hpf (0-2) 10/29/16 17:00 Urine WBC 2 - 5 /hpf (0-6) 10/29/16 17:00 Ur Epithelial Cells 0 - 2 /hpf (0-5) 10/29/16 17:00 Urine Bacteria Few (NEG) 10/29/16 17:00 Urine Other Trichomonas 10/29/16 17:00 Urine Opiates Screen Negative (NEGATIVE) 10/30/16 12:50 Urine Methadone Screen Negative (NEGATIVE) 10/30/16 12:50 Acetaminophen < 10.0 ug/ml (10.0-20.0) L 10/30/16 07:00 Ur Barbiturates Screen Negative (NEGATIVE) 10/30/16 12:50 Ur Phencyclidine Scrn Negative (NEGATIVE) 10/30/16 12:50 Ur Amphetamines Screen Negative (NEGATIVE) 10/30/16 12:50 U Benzodiazepines Scrn Negative (NEGATIVE) 10/30/16 12:50 U Oth Cocaine Metabols Negative (NEGATIVE) 10/30/16 12:50 U Cannabinoids Screen Negative (NEGATIVE) 10/30/16 12:50 Alcohol, Quantitative 29 mg/dL (0-10) H 10/29/16 17:28 IgG 1222.1 mg/dL (700.0-1600.0) 10/30/16 07:00 IgA 281.6 mg/dL (70.0-400.0) 10/30/16 07:00 IgM 103.7 mg/dL (40.0-230.0) 10/30/16 07:00 HADLEY Screen Negative (Negative) 10/30/16 07:00 Anti-Mitochondrial Ab Negative (Negative) 10/30/16 07:00 Smooth Muscle Ab Titer TEST NOT PERFORMED 10/30/16 07:00 Anti-Smooth Muscle Ab Negative (Negative) 10/30/16 07:00 Hepatitis A IgM Ab Negative (NEGATIVE) 10/30/16 07:00 Hep Bs Antigen Negative (NEGATIVE) 10/30/16 07:00 Hep B Core IgM Ab Negative (NEGATIVE) 10/30/16 07:00 Hepatitis C Antibody Negative (NEGATIVE) 10/30/16 07:00 HIV-1 Ab Rapid Screen Non reactive (NON REAC) 10/30/16 07:00 HIV 1&2 Ag/Ab, 4th Gen Nonreactive (Nonreactive) 10/30/16 07:00 Attending/Attestation - Attestation I have personally seen and examined this patient.: Yes I have fully participated in the care of the patient.: Yes I have reviewed all pertinent clinical information, including history, physical exam and plan: Yes Notes (Text): I have seen and examined patient at bedside. This is 41 year old male with history of alcoholism and chronic pancreatitis who got admitted for acute abdominal pain which was secondary to chronic pancreatitis. He also was going thru alcohol withdrawal syndrome. Today he feels well. Able to walk steadily in the hallway. Denies chest pain, headache, anxiety, hallucinations or diaphoresis. He is able to tolerate diet without any problem. US revealed dilated CBD. MRCP unremarkable. He also has transaminitis most likely secondary to alcohol. Hep panel and HIV negative. Autoimmune work up negative so far. Patient has unconjugated hyperbilirubinemia. Patient was given banana bag and tapering doses of ativan. Patient is homeless and patient is not interested in going to care home. He reported that he will go to his sister's house which is in [place]. telephone worker consult appreciated. Counselling for alcohol cessation provided. Flagyl was given for trichominiasis. Patients partner was also treated. Dr Benson Florez
[2016-11-01] MEDS ORDERED: Amylase/Lipase/Protease 5,000 U ECC PO SCH (14:00)
[2016-11-01 16:00] LABS: LKM-1 Ab (IgG) <=20.0 U (<=20.0)
== END 2016-11-01 14:41 | disposition home or self-care (01) | DRG 423 ==
LOC: ED 15:23 → EROBSV 16:45 → OBSVTOIN 20:29 → ERH 20:29 → 2RSO 23:35 → 3RSO 10-31 12:04
PROVIDERS: ADMIT Hospitalist; ATTEND Hospitalist
DX: A59.9 Trichomoniasis, unspecified (principal); F10.239 Alcohol dependence with withdrawal, unspecified; K86.1 Other chronic pancreatitis; I10 Essential (primary) hypertension; E87.6 Hypokalemia; K82.4 Cholesterolosis of gallbladder; K83.8 Other specified diseases of biliary tract; D53.9 Nutritional anemia, unspecified; R74.0 Nonspecific elevation of levels of transaminase and lactic acid dehydrogenase [LDH]; Z59.0 Homelessness; Z83.3 Family history of diabetes mellitus; Z82.49 Family history of ischemic heart disease and other diseases of the circulatory system

== ENCOUNTER 2016-11-13 20:51 | Observation (INO) | payer MEDICAID ==
[2016-11-13 21:23] VITALS: BMI 22.9
[2016-11-13] MEDS ORDERED: DiphenhydrAMINE 50 mg/ml Inj IVP ONE (22:02)
[2016-11-13] MEDS ORDERED: Sodium Chloride 0.9% 1,000 ML IV SCH (22:15)
--- NOTE | 2016-11-13 22:24 | ED PDOC ---
Arrival/HPI - General Chief Complaint: Abdominal Pain Time Seen by Provider: 11/13/16 21:46 Historian: Patient - History of Present Illness Narrative History of Present Illness (Text): 11/13/16 22:20 Felix Glasgow is a 41 year old male, with a history of alcoholism and chronic pancreatitis, presents to the emergency department complaining of diffuse abdominal pain for past few hours. States that pain presented after drinking alcohol today. Denies any fever, chills, headache, dizziness, chest pain, difficulty breathing, nausea, vomiting, diarrhea, urinary symptoms, or any other complaints at this time. Time/Duration: 1-3 hours Symptom Onset: Gradual Symptom Course: Unchanged Severity Level: Mild Activities at Onset: Light Context: Home Past Medical History - Provider Review Nursing Documentation Reviewed: Yes - Infectious Disease Hx of Infectious Diseases: None - Tetanus Immunization Tetanus Immunization: Unknown - Past Medical History Past Medical History: No Previous - Cardiac Hx Cardiac Disorders: No - Pulmonary Hx Respiratory Disorders: No Hx Tuberculosis: No - Neurological Hx Neurological Disorder: No Hx Seizures: No - HEENT Hx HEENT Disorder: No - Renal Hx Renal Disorder: No - Endocrine/Metabolic Hx Endocrine Disorders: No - Hematological/Oncological Hx Cancer: No - Integumentary Hx Dermatological Disorder: No - Musculoskeletal/Rheumatological Hx Musculoskeletal Disorders: No - Gastrointestinal Hx Gastrointestinal Disorders: Yes Hx Pancreatitis: Yes - Genitourinary/Gynecological Hx Genitourinary Disorders: No Hx Sexually Transmitted Diseases: No - Psychiatric Hx Psychophysiologic Disorder: No Hx Substance Use: No - Past Surgical History Past Surgical History: No Previous - Surgical History Hx Amputation: No Hx Appendectomy: No Hx Cardiac Catheterization: No Hx Cholecystectomy: No Hx Coronary Stent: No Hx Gastric Bypass Surgery: No Hx Hysterectomy: No Hx Joint Replacement: No Hx Kidney Transplant: No Hx Liver Transplant: No Hx Mastectomy: No Hx Musculoskeletal Surgery: No Hx Open Heart Surgery: No Hx Orthopedic Surgery: No Hx Splenectomy: No Hx Valve Replacement: No - Anesthesia Hx Anesthesia: No Hx Anesthesia Reactions: No Hx Malignant Hyperthermia: No - Suicidal Assessment Feels Threatened In Home Enviroment: No Family/Social History - Physician Review Nursing Documentation Reviewed: Yes Family/Social History: No Known Family HX Smoking Status: Light Smoker < 10 Cigarettes Daily Hx Alcohol Use: Yes Frequency of alcohol use: Daily Amount per day: 24 Hx Substance Use: No Allergies/Home Meds Allergies/Adverse Reactions: Allergies No Known Allergies Allergy (Verified 10/29/16 16:02) Review of Systems - Physician Review All systems were reviewed & negative as marked: Yes - Review of Systems Constitutional: Normal. absent: Fatigue, Fevers Respiratory: Normal. absent: SOB, Cough Cardiovascular: Normal. absent: Chest Pain Gastrointestinal: Abdominal Pain. absent: Diarrhea, Nausea, Vomiting Genitourinary Male: Normal Neurological: Normal. absent: Headache, Dizziness Psychiatric: Normal Physical Exam Vital Signs Reviewed: Yes Vital Signs Temp Pulse Resp BP Pulse Ox 11/14/16 02:40 98.0 F 72 16 147/89 98 11/14/16 00:16 98.2 F 74 16 98 11/13/16 21:30 98.0 F 70 16 98 11/13/16 21:23 98.2 F 69 18 150/88 99 Temperature: Afebrile Blood Pressure: Normal Pulse: Regular Respiratory Rate: Normal Appearance: Positive for: Well-Appearing, Non-Toxic, Comfortable Pain Distress: None Mental Status: Positive for: Alert and Oriented X 3 - Systems Exam Head: Present: Atraumatic, Normocephalic Pupils: Present: PERRL Conjunctiva: Present: Normal Respiratory/Chest: Present: Clear to Auscultation, Good Air Exchange. No: Respiratory Distress, Accessory Muscle Use Cardiovascular: Present: Regular Rate and Rhythm, Normal S1, S2. No: Murmurs Abdomen: Present: Normal Bowel Sounds. No: Tenderness, Distention, Peritoneal Signs Back: Present: Normal Inspection. No: CVA Tenderness Upper Extremity: Present: Normal Inspection. No: Cyanosis, Edema Lower Extremity: Present: Normal Inspection. No: Edema Neurological: Present: GCS=15, CN II-XII Intact, Speech Normal, Motor Func Grossly Intact, Normal Sensory Function Skin: Present: Warm, Dry, Normal Color. No: Rashes Psychiatric: Present: Alert, Oriented x 3, Normal Insight, Normal Concentration Medical Decision Making ED Course and Treatment: 11/13/16 22:23 Impression: A 41 year old male who presents to the emergency department complaining of diffuse abdominal pain for past few hours. Plan: -- Labs. Lipase -- Benadryl -- Protonix Progress Notes: 11/13/16 22:[address] patient on EDObs for pending labs, reevaluation and disposition. - Lab Interpretations Lab Results: 11/13/16 22:19 04/25/17 22:19 Lab Results 11/13/16 22:19: Sodium 149 H, Potassium 3.4 L, Chloride 107, Carbon Dioxide 31, Anion Gap 14, BUN 7, Creatinine 0.7, Est GFR ( Amer) > 60, Est GFR (Non- Af Amer) > 60, Random Glucose 106, Calcium 8.5, Total Bilirubin 0.6, AST 90 H, ALT 38, Alkaline Phosphatase 121, Total Protein 6.8, Albumin 3.5, Globulin 3.3, Albumin/Globulin Ratio 1.1, Lipase 26 11/13/16 22:19: WBC 4.8, RBC 3.10 L, Hgb 10.6 L, Hct 31.8 L, MCV 102.6, MCH 34.2 , MCHC 33.3, RDW 13.8, Plt Count 209, MPV 9.5, Gran % 43.2 L, Lymph % (Auto) 47.7 H, [place] % (Auto) 6.0, Eos % (Auto) 2.3, Baso % (Auto) 0.8, Gran # 2.09, Lymph # 2.3, [place] # 0.3, Eos # 0.1, Baso # 0.04 I have reviewed the lab results: Yes - Medication Orders Current Medication Orders: Discontinued Medications Diphenhydramine HCl (Benadryl) 25 mg IVP ONCE ONE Stop: 11/13/16 22:03 Last Admin: 11/13/16 22:37 Dose: 25 mg Sodium Chloride (Sodium Chloride 0.9%) 1,000 mls @ 80 mls/hr IV .[id number] Last Admin: 11/13/16 22:37 Dose: 80 mls/hr Pantoprazole Sodium (Protonix Inj) 40 mg IVP ONCE STA Stop: 11/13/16 22:03 Last Admin: 11/13/16 22:37 Dose: 40 mg ED OBSERVATION Discharge: Yes Date of observation admission: 11/13/16 Time of observation admission: 22:50 - Observation admission statement Patient is being placed in observation because:: abdominal pain - Goals of Observation Goals of observation are:: pending labs, reevaluation and disposition - Progress Note Progress Note: 11/14/16 00:50 Patient is resting comfortably with stable vitals. 11/14/16 02:50 Patient is sleeping with no new complaints. Stable vitals noted. 11/14/16 04:49 Patient in no acute distress. Sleeping comfortably with stable vitals. 11/14/16 06:09 Patient alert oriented X3. patient is ambulatory with steady gait. will discharge patient home. - Scribe Statement The provider has reviewed the documentation as recorded by the Becca Saravia Provider Attestation: All medical record entries made by the Jeanetteibcassandra were at my direction and personally dictated by me. I have reviewed the chart and agree that the record accurately reflects my personal performance of the history, physical exam, medical decision making, and the department course for this patient. I have also personally directed, reviewed, and agree with the discharge instructions and disposition. Disposition/Present on Arrival - Present on Arrival Any Indicators Present on Arrival: No History of DVT/PE: No History of Uncontrolled Diabetes: No Urinary Catheter: No History of Decub. Ulcer: No History Surgical Site Infection Following: None - Disposition Have Diagnosis and Disposition been Completed?: Yes Diagnosis: Abdominal pain Disposition: HOME/ ROUTINE Disposition Time: 05:57 Condition: GOOD
[2016-11-13 22:37] LABS: ADD MANUAL DIFF? NO
[2016-11-13 22:45] LABS: BASO # 0.04 K/mm3 (0.0-2.0); BASO % 0.8 % (0.0-3.0); EOS # 0.1 (0.0-0.7); EOS % 2.3 % (1.5-5.0); GRAN # 2.09 (1.4-6.5); GRAN % 43.2 % (50.0-68.0); HEMATOCRIT 31.8 % (42.0-52.0); LYMPH # 2.3 (1.2-3.4); LYMPH % 47.7 % (22.0-35.0); MEAN CELL VOLUME 102.6 fL (80.0-105.0); MEAN CORPUSCULAR HEMOGLOBIN 34.2 pg (25.0-35.0); MEAN CORPUSCULAR HGB CONC 33.3 g/dl (31.0-37.0); MEAN PLATELET VOLUME 9.5 fl (7.0-11.0); MONO # 0.3 (0.1-0.6); PLATELET COUNT 209 10^3/uL (120.0-450.0); RED CELL DISTRIBUTION WIDTH 13.8 % (11.5-14.5); WHITE BLOOD COUNT 4.8 10^3/ul (4.5-11.0)
[2016-11-13 22:54] LABS: ALB/GLOB RATIO 1.1 (1.1-1.8); ALKALINE PHOSPHATASE 121 U/L (38-133); ALT/SGPT 38 U/L (7-56); AST/SGOT 90 U/L (15-59); BILIRUBIN,TOTAL 0.6 mg/dL (0.2-1.3); BLOOD UREA NITROGEN 7 mg/dL (7-21); CALCIUM 8.5 mg/dL (8.4-10.5); CARBON DIOXIDE 31 mmol/L (21-33); CHLORIDE 107 mmol/L (98-107); GFR AFRICAN-AMERICAN > 60; GLUCOSE,RANDOM 106 mg/dL (70-110); LIPASE 26 U/L (23-300); POTASSIUM 3.4 mmol/L (3.6-5.0); SODIUM 149 mmol/L (132-148); TOTAL PROTEIN 6.8 g/dL (5.8-8.3)
[2016-11-14 00:16] VITALS: RESP 16; O2SAT 98
[2016-11-14 02:40] VITALS: BP 147/89; PULSE 72; TEMP 98
== END 2016-11-14 05:57 | disposition home or self-care (01) ==
LOC: ED 20:51 → EROBSV 22:48
PROVIDERS: ADMIT Emergency Medicine; ATTEND Emergency Medicine
DX: R10.9 Unspecified abdominal pain (principal); K85.90 Acute pancreatitis without necrosis or infection, unspecified
CPT/HCPCS: 80053; 83690; 85025; 96374; 96375; 99284; C9113; G0378; J1200; J7040

== ENCOUNTER 2016-11-15 15:36 | Emergency (ER) | payer MEDICAID ==
[2016-11-15 15:36] VITALS: BMI 22.9
[2016-11-15 15:47] VITALS: TEMP 98.3; O2SAT 100
[2016-11-15] MEDS ORDERED: Ciprofloxacin 0.3% OPTH SOLN OU STA (15:57)
[2016-11-15] MEDS ORDERED: TDAP Vaccine 0.5 mL Syr IM ONE (15:57)
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
[2016-11-15] MEDS ORDERED: Morphine 2 mg/ml ISec IVP STA ×2 (16:45→18:05)
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
--- NOTE | 2016-11-15 16:46 | RAD ---
PROCEDURE: Radiographs of the right elbow. HISTORY: rt. elbow injury with abrasion COMPARISON: No prior. FINDINGS: BONES: Normal. No fracture. JOINTS: Normal. No osteoarthritis. SOFT TISSUES: Normal. JOINT EFFUSION: None. OTHER FINDINGS: None. IMPRESSION: Unremarkable radiographs of the right elbow.
[2016-11-15 17:22] LABS: ADD MANUAL DIFF? NO
[2016-11-15 17:36] LABS: ALB/GLOB RATIO 1.1 (1.1-1.8); ALKALINE PHOSPHATASE 149 U/L (38-133); ALT/SGPT 40 U/L (7-56); AST/SGOT 74 U/L (15-59); BILIRUBIN,TOTAL 0.8 mg/dL (0.2-1.3); BLOOD UREA NITROGEN 7 mg/dL (7-21); CALCIUM 8.9 mg/dL (8.4-10.5); CARBON DIOXIDE 30 mmol/L (21-33); CHLORIDE 105 mmol/L (98-107); GFR AFRICAN-AMERICAN > 60; GLUCOSE,RANDOM 115 mg/dL (70-110); POTASSIUM 3.5 mmol/L (3.6-5.0); SODIUM 146 mmol/L (132-148)
[2016-11-15 17:38] LABS: BASO # 0.03 K/mm3 (0.0-2.0); BASO % 0.5 % (0.0-3.0); EOS # 0.1 (0.0-0.7); EOS % 1.4 % (1.5-5.0); GRAN # 3.89 (1.4-6.5); GRAN % 65.9 % (50.0-68.0); HEMATOCRIT 35.6 % (42.0-52.0); LYMPH # 1.6 (1.2-3.4); LYMPH % 27.6 % (22.0-35.0); MEAN CORPUSCULAR HEMOGLOBIN 34.4 pg (25.0-35.0); MEAN CORPUSCULAR HGB CONC 33.7 g/dl (31.0-37.0); MEAN PLATELET VOLUME 9.5 fl (7.0-11.0); MONO # 0.3 (0.1-0.6); MONO % 4.6 % (1.0-6.0); PLATELET COUNT 206 10^3/uL (120.0-450.0); RED CELL DISTRIBUTION WIDTH 13.5 % (11.5-14.5); WHITE BLOOD COUNT 5.9 10^3/ul (4.5-11.0)
[2016-11-15] MEDS ORDERED: Amoxicillin-Clav 875-125 mg Tab PO STA (17:47)
[2016-11-15] MEDS ORDERED: Potassium Chloride 20 mEq ER Tab PO ONE (17:48)
[2016-11-15] MEDS ORDERED: Multivitamin (MVI) 10 ML, Thiamine 100 MG, Folic Acid 1 MG in Dextrose 5% In Water 1,00... IV ONE (18:05)
[2016-11-15] MEDS ORDERED: DiphenhydrAMINE 50 mg/ml Inj IVP STA (19:27)
[2016-11-15] MEDS ORDERED: Oxycodone/Acetaminophen 5/325 mg Tab PO STA (20:50)
[2016-11-15 21:22] VITALS: BP 142/78; PULSE 70; RESP 16
== END 2016-11-15 21:23 | disposition home or self-care (01) ==
LOC: ED 15:36
DX: S05.11XA Contusion of eyeball and orbital tissues, right eye, initial encounter (principal); S00.211A Abrasion of right eyelid and periocular area, initial encounter; S02.81XA Fracture of other specified skull and facial bones, right side, initial encounter for closed fracture; Y04.0XXA Assault by unarmed brawl or fight, initial encounter; F17.210 Nicotine dependence, cigarettes, uncomplicated; Z23 Encounter for immunization
CPT/HCPCS: 70450; 70486; 72125; 73030; 73080; 80053; 80320; 85025; 90471; 90715; 96374; 96375; 96376; 99284; J1200; J1885; J2270; J3411; J7070

== ENCOUNTER 2016-11-27 02:06 | Emergency (ER) | payer MEDICAID ==
[2016-11-27 02:34] VITALS: BMI 21.9
[2016-11-27 02:37] VITALS: RESP 16; TEMP 98; O2SAT 98
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
[2016-11-27 05:37] VITALS: BP 128/72; PULSE 70
--- NOTE | 2016-11-27 08:01 | RAD ---
PROCEDURE: Radiographs of the Right Shoulder HISTORY: injury COMPARISON: 11/15/2016 FINDINGS: BONES: Normal. No fracture. JOINTS: Normal. Glenohumeral and acromioclavicular joints preserved. No osteoarthritis. SOFT TISSUES: Normal. OTHER FINDINGS: None. IMPRESSION: Normal radiographs of the right shoulder.
== END 2016-11-27 05:37 | disposition home or self-care (01) ==
LOC: ED 02:06
DX: S43.401A Unspecified sprain of right shoulder joint, initial encounter (principal); Y04.0XXA Assault by unarmed brawl or fight, initial encounter; Y92.89 Other specified places as the place of occurrence of the external cause
CPT/HCPCS: 73030; 99284; L3650

== ENCOUNTER 2016-12-04 01:03 | Emergency (ER) | payer MEDICAID ==
[2016-12-04 02:02] VITALS: RESP 18; TEMP 97.6; BMI 22.1
--- NOTE | 2016-12-04 02:35 | ED PDOC ---
Arrival/HPI - General Chief Complaint: Upper Extremity Problem/Injury Time Seen by Provider: 12/04/16 02:26 Historian: Patient - History of Present Illness Narrative History of Present Illness (Text): 12/04/16 02:35 Felix Glasgow is a 41 year old male who presents to the emergency department complaining of 2 week duration of right shoulder pain. States that pain is worsened with movement. Reports of limited ROM of right shoulder secondary to pain. Denies fever, chills, headache, dizziness, chest pain, shortness of breath , weakness/numbness of extremity, urinary symptoms, or any other complaints at this time. Time/Duration: > week (2 weeks ) Symptom Onset: Gradual Symptom Course: Worsening Severity Level: Mild Activities at Onset: Light Past Medical History - Provider Review Nursing Documentation Reviewed: Yes - Infectious Disease Hx of Infectious Diseases: None - Tetanus Immunization Tetanus Immunization: Unknown - Past Medical History Past Medical History: No Previous - Cardiac Hx Cardiac Disorders: No - Pulmonary Hx Respiratory Disorders: No Hx Tuberculosis: No - Neurological Hx Neurological Disorder: No Hx Seizures: No - HEENT Hx HEENT Disorder: No - Renal Hx Renal Disorder: No - Endocrine/Metabolic Hx Endocrine Disorders: No - Hematological/Oncological Hx Cancer: No - Integumentary Hx Dermatological Disorder: No - Musculoskeletal/Rheumatological Hx Musculoskeletal Disorders: No - Gastrointestinal Hx Gastrointestinal Disorders: Yes Hx Pancreatitis: Yes - Genitourinary/Gynecological Hx Genitourinary Disorders: No Hx Sexually Transmitted Diseases: No - Psychiatric Hx Psychophysiologic Disorder: No Hx Substance Use: No - Past Surgical History Past Surgical History: No Previous - Surgical History Hx Amputation: No Hx Appendectomy: No Hx Cardiac Catheterization: No Hx Cholecystectomy: No Hx Coronary Stent: No Hx Gastric Bypass Surgery: No Hx Hysterectomy: No Hx Joint Replacement: No Hx Kidney Transplant: No Hx Liver Transplant: No Hx Mastectomy: No Hx Musculoskeletal Surgery: No Hx Open Heart Surgery: No Hx Orthopedic Surgery: No Hx Splenectomy: No Hx Valve Replacement: No - Anesthesia Hx Anesthesia: No Hx Anesthesia Reactions: No Hx Malignant Hyperthermia: No - Suicidal Assessment Feels Threatened In Home Enviroment: No Family/Social History - Physician Review Nursing Documentation Reviewed: Yes Family/Social History: No Known Family HX Smoking Status: Heavy Smoker > 10 Cigarettes Daily Hx Alcohol Use: Yes Frequency of alcohol use: Daily Amount per day: 24 Hx Substance Use: No Allergies/Home Meds Allergies/Adverse Reactions: Allergies No Known Allergies Allergy (Verified 11/15/16 15:42) Review of Systems - Physician Review All systems were reviewed & negative as marked: Yes - Review of Systems Constitutional: Normal. absent: Fatigue, Fevers Respiratory: Normal. absent: SOB, Cough Gastrointestinal: Normal. absent: Abdominal Pain, Diarrhea, Nausea, Vomiting Genitourinary Male: Normal Musculoskeletal: Other (right shoulder pain ) Neurological: absent: Headache, Dizziness Psychiatric: Normal Physical Exam Vital Signs Reviewed: Yes Vital Signs Temp Pulse Resp BP Pulse Ox 12/04/16 06:00 68 18 132/80 99 12/04/16 02:01 97.6 F 71 18 136/86 100 Temperature: Afebrile Blood Pressure: Normal Pulse: Regular Respiratory Rate: Normal Appearance: Positive for: Well-Appearing, Non-Toxic, Comfortable Pain Distress: None Mental Status: Positive for: Alert and Oriented X 3 - Systems Exam Head: Present: Atraumatic, Normocephalic Pupils: Present: PERRL Conjunctiva: Present: Normal Respiratory/Chest: Present: Clear to Auscultation, Good Air Exchange. No: Respiratory Distress, Accessory Muscle Use Cardiovascular: Present: Regular Rate and Rhythm, Normal S1, S2. No: Murmurs Upper Extremity: Present: NORMAL PULSES, Neurovascularly Intact. No: Cyanosis, Edema, Swelling, Erythema, Temperature Abnormalties, Deformity Lower Extremity: Present: Normal Inspection. No: Edema Neurological: Present: GCS=15, CN II-XII Intact, Speech Normal Skin: Present: Warm, Dry, Normal Color. No: Rashes Psychiatric: Present: Alert, Oriented x 3, Normal Insight, Normal Concentration Medical Decision Making ED Course and Treatment: 12/04/16 02:39 Impression: A 41 year old male who presents to the emergency department complaining of 2 week duration of right shoulder pain. Plan: -- Shoulder X-ray -- Reassess and disposition Progress Notes: 12/04/16 04:16 Shoulder X-ray interpreted by me: No acute fracture or dislocation. Shows bursitis. Patient is stable for discharge. Advised to present to emergency department for new or worsening symptoms and follow up with PMD within few days. - RAD Interpretation Radiology Orders: 12/04/16 02:26 SHOULDER RIGHT [RAD] Stat - Medication Orders Current Medication Orders: Discontinued Medications Ketorolac Tromethamine (Toradol) 30 mg IM ONCE ONE Stop: 12/04/16 04:09 Last Admin: 12/04/16 05:15 Dose: 30 mg - Scribe Statement The provider has reviewed the documentation as recorded by the Becca Saravia Provider Attestation: All medical record entries made by the Becca were at my direction and personally dictated by me. I have reviewed the chart and agree that the record accurately reflects my personal performance of the history, physical exam, medical decision making, and the department course for this patient. I have also personally directed, reviewed, and agree with the discharge instructions and disposition. Disposition/Present on Arrival - Present on Arrival Any Indicators Present on Arrival: No History of DVT/PE: No History of Uncontrolled Diabetes: No Urinary Catheter: No History of Decub. Ulcer: No History Surgical Site Infection Following: None - Disposition Have Diagnosis and Disposition been Completed?: Yes Diagnosis: Shoulder bursitis Disposition: HOME/ ROUTINE Disposition Time: 04:10 Condition: GOOD Discharge Instructions (ExitCare): Shoulder Bursitis (ED) Additional Instructions: wear sling 3 to 5 days Referrals: Sheng Cole MD [Primary Care Provider] - Follow up with primary
[2016-12-04 06:00] VITALS: BP 132/80; PULSE 68; O2SAT 99
--- NOTE | 2016-12-04 09:09 | RAD ---
PROCEDURE: Radiographs of the Right Shoulder HISTORY: pain COMPARISON: 11/27/2016 FINDINGS: BONES: Linear lucency through right greater tuberosity may reflect nondisplaced fracture. Please correlate clinically. Small a amorphous calcification adjacent to greater tuberosity not evident on earlier film. This may reflect early callus formation though not visualized on film from 1 week earlier. JOINTS: Normal. Glenohumeral and acromioclavicular joints preserved. No osteoarthritis. SOFT TISSUES: Normal. OTHER FINDINGS: None. IMPRESSION: Possible small nondisplaced fracture of greater tuberosity. Questionable early callus formation adjacent to the fracture.
--- NOTE | 2016-12-04 14:46 | ED PDOC ---
Addendum entered and electronically signed by Estrella Rubio PA 12/04/16 15 :04: SPOKE WITH PATIENT; DISCUSSED RESULTS. HE WILL RETURN TO ER TO [facility] REFERRAL FORM TO THE ORTHOPEDIST CLINIC. HE WAS ADVISED TO CONTINUE TO USE SLING AND F/U WITH THE CLINIC SOON POSSIBLE. PT STATES HE WILL COME TO ER TODAY. Original Note: ED Additional Note - Physician Additional Note Physician Additional Note: LEFT MESSAGE TO HAVE PATIENT CALL BACK REGARDING SHOULDER XRAYS; PT WITH FX OF SHOULDER. PT WILL NEED ORTHOPEDIC F/U. AWAITING RETURN CALL FROM PATIENT.
== END 2016-12-04 06:02 | disposition home or self-care (01) ==
LOC: ED 01:03
DX: M75.51 Bursitis of right shoulder (principal)
CPT/HCPCS: 73030; 96372; 99285; J1885

== ENCOUNTER 2016-12-07 00:01 | Emergency (ER) | payer MEDICAID ==
[2016-12-07 03:28] VITALS: TEMP 97.6; O2SAT 100
[2016-12-07 03:52] VITALS: BMI 21.5
[2016-12-07 04:06] VITALS: RESP 16
--- NOTE | 2016-12-07 04:56 | ED PDOC ---
Arrival/HPI - General Chief Complaint: Abdominal Pain Time Seen by Provider: 12/07/16 02:51 Historian: Patient - History of Present Illness Narrative History of Present Illness (Text): 12/07/16 04:54 This is a 41Y M with PMH of alcoholism and chronic pancreatitis here for abdominal pain since last night. He reports it is located LUQ and does not radiate. He denies fever, chills, vomiting or diarrhea. He does have some nausea and his last drink was last night. He is resting comfortably in bed, sleeping before time of examination. Time/Duration: 24 hours Symptom Course: Unchanged Quality: Aching Severity Level: 5 Activities at Onset: Rest Context: Home Past Medical History - Provider Review Nursing Documentation Reviewed: Yes - Infectious Disease Hx of Infectious Diseases: None - Tetanus Immunization Tetanus Immunization: Unknown - Past Medical History Past Medical History: No Previous - Cardiac Hx Cardiac Disorders: No - Pulmonary Hx Respiratory Disorders: No Hx Tuberculosis: No - Neurological Hx Neurological Disorder: No Hx Seizures: No - HEENT Hx HEENT Disorder: No - Renal Hx Renal Disorder: No - Endocrine/Metabolic Hx Endocrine Disorders: No - Hematological/Oncological Hx Cancer: No - Integumentary Hx Dermatological Disorder: No - Musculoskeletal/Rheumatological Hx Musculoskeletal Disorders: No - Gastrointestinal Hx Gastrointestinal Disorders: Yes Hx Pancreatitis: Yes - Genitourinary/Gynecological Hx Genitourinary Disorders: No Hx Sexually Transmitted Diseases: No - Psychiatric Hx Psychophysiologic Disorder: No Hx Substance Use: No - Past Surgical History Past Surgical History: No Previous - Surgical History Hx Amputation: No Hx Appendectomy: No Hx Cardiac Catheterization: No Hx Cholecystectomy: No Hx Coronary Stent: No Hx Gastric Bypass Surgery: No Hx Hysterectomy: No Hx Joint Replacement: No Hx Kidney Transplant: No Hx Liver Transplant: No Hx Mastectomy: No Hx Musculoskeletal Surgery: No Hx Open Heart Surgery: No Hx Orthopedic Surgery: No Hx Splenectomy: No Hx Valve Replacement: No - Anesthesia Hx Anesthesia: No Hx Anesthesia Reactions: No Hx Malignant Hyperthermia: No - Suicidal Assessment Feels Threatened In Home Enviroment: No Family/Social History - Physician Review Nursing Documentation Reviewed: Yes Family/Social History: No Known Family HX Smoking Status: Heavy Smoker > 10 Cigarettes Daily Hx Alcohol Use: Yes Amount per day: 24 Hx Substance Use: No Allergies/Home Meds Allergies/Adverse Reactions: Allergies No Known Allergies Allergy (Verified 04/27/17 15:42) Review of Systems - Physician Review All systems were reviewed & negative as marked: Yes - Review of Systems Constitutional: Normal. absent: Fevers Respiratory: Normal. absent: SOB, Cough Cardiovascular: Normal. absent: Chest Pain, Palpitations Gastrointestinal: Abdominal Pain, Nausea. absent: Diarrhea, Vomiting, Hematochezia, Hematemesis Genitourinary Male: Normal. absent: Dysuria, Frequency, Hematuria Musculoskeletal: Normal Skin: Normal. absent: Rash Neurological: Normal. absent: Headache, Dizziness Physical Exam Vital Signs Temp Pulse Resp BP Pulse Ox 12/07/16 06:00 61 16 156/99 H 100 12/07/16 05:00 62 16 144/87 100 12/07/16 04:06 59 L 16 139/92 H 100 12/07/16 03:27 97.6 F 60 17 152/109 H 100 Temperature: Afebrile Blood Pressure: Normal Pulse: Regular Respiratory Rate: Normal Appearance: Positive for: Well-Appearing, Non-Toxic, Comfortable Pain Distress: None Mental Status: Positive for: Alert and Oriented X 3 - Systems Exam Head: Present: Atraumatic, Normocephalic Pupils: Present: PERRL Extroacular Muscles: Present: EOMI Conjunctiva: Present: Normal Mouth: Present: Moist Mucous Membranes Neck: Present: Normal Range of Motion Respiratory/Chest: Present: Clear to Auscultation, Good Air Exchange. No: Respiratory Distress, Accessory Muscle Use Cardiovascular: Present: Regular Rate and Rhythm, Normal S1, S2. No: Murmurs Abdomen: Present: Tenderness (LUQ ), Distention, Normal Bowel Sounds. No: Peritoneal Signs Back: Present: Normal Inspection Upper Extremity: Present: Normal Inspection. No: Cyanosis, Edema Lower Extremity: Present: Normal Inspection. No: Edema Neurological: Present: GCS=15, CN II-XII Intact, Speech Normal Skin: Present: Warm, Dry, Normal Color. No: Rashes Psychiatric: Present: Alert, Oriented x 3, Normal Insight, Normal Concentration Medical Decision Making ED Course and Treatment: 12/07/16 04:56 Impression: This is a 41Y M with PMH alcoholism and pancreatitis here for LUQ abdominal pain x 1 day. Patient has associated nausea. Last drink was last night. Differential Diagnosis: -- pancreatitis, GERD Plan: -- CBC, CMP, amylase, lipase -- Reassess and disposition Prior Visits: Notes and results from previous visits were reviewed. Progress Note: Patient sleeping in bed. Labs within normal limits. Discharge Instructions: Re-evaluation. Patient feels better. Discussed results and plan with patient who expresses understanding. All questions answered and there is agreement with the plan to discharge home with instructions. Patient stable for discharge. Return if symptoms persist or worsen. Re-evaluation Time: 06:04 Reassessment Condition: Unchanged - Lab Interpretations Lab Results: 12/07/16 05:05 12/07/16 05:05 Lab Results 12/07/16 05:05: Sodium 146, Potassium 3.7, Chloride 111 H, Carbon Dioxide 27, Anion Gap 12, BUN 7, Creatinine 0.6, Est GFR ( Amer) > 60, Est GFR (Non- Af Amer) > 60, Random Glucose 106, Calcium 8.3 L, Total Bilirubin 0.5, AST 83 H , ALT 47, Alkaline Phosphatase 127, Total Protein 7.0, Albumin 3.7, Globulin 3.4 , Albumin/Globulin Ratio 1.1, Amylase 83, Lipase 15 L 12/07/16 05:05: WBC 4.4 L D, RBC 3.31 L, Hgb 11.2 L, Hct 33.5 L, MCV 101.2, MCH 33.8, MCHC 33.4, RDW 13.4, Plt Count 193, MPV 9.4 I have reviewed the lab results: Yes Interpretation: No sign. chg./baseline Disposition/Present on Arrival - Present on Arrival Any Indicators Present on Arrival: No History of DVT/PE: No History of Uncontrolled Diabetes: No Urinary Catheter: No History of Decub. Ulcer: No History Surgical Site Infection Following: None - Disposition Have Diagnosis and Disposition been Completed?: Yes Diagnosis: GERD (gastroesophageal reflux disease) Disposition: HOME/ ROUTINE Disposition Time: 06:00 Patient Plan: Discharge Patient Problems: Current Active Problems Problem Status Onset GERD (gastroesophageal reflux disease) Acute Condition: GOOD Discharge Instructions (ExitCare): Gastroesophageal Reflux Disease (ED) Print Language: UKRAINIAN Additional Instructions: Mr. Glasgow, thank you for letting us take care of you today. Your provider was Dr. Michaels. You were treated for abdominal pain secondary to GERD. The emergency medical care you received today was directed at your acute symptoms. If you were prescribed any medication, please fill it and take as directed. It may take several days for your symptoms to resolve. Return to the Emergency Department if your symptoms worsen, do not improve, or if you have any other problems. Please contact your doctor or call one of the physicians/clinics you have been referred to that are listed on the Patient Visit Information form that is included in your discharge packet. Bring any paperwork you were given at discharge with you along with any medications you are taking to your follow up visit. Our treatment cannot replace ongoing medical care by a primary care provider (PCP) outside of the emergency department. Thank you for allowing the [facility] team to be part of your care today. Referrals: Sheng Cole MD [Primary Care Provider] - Follow up with primary
[2016-12-07 05:43] LABS: HEMATOCRIT 33.5 % (42.0-52.0); MEAN CELL VOLUME 101.2 fL (80.0-105.0); MEAN CORPUSCULAR HEMOGLOBIN 33.8 pg (25.0-35.0); MEAN CORPUSCULAR HGB CONC 33.4 g/dl (31.0-37.0); MEAN PLATELET VOLUME 9.4 fl (7.0-11.0); RED CELL DISTRIBUTION WIDTH 13.4 % (11.5-14.5); WHITE BLOOD COUNT 4.4 10^3/ul (4.5-11.0)
[2016-12-07 05:47] LABS: ALB/GLOB RATIO 1.1 (1.1-1.8); ALKALINE PHOSPHATASE 127 U/L (38-133); ALT/SGPT 47 U/L (7-56); AMYLASE 83 U/L (35-125); AST/SGOT 83 U/L (15-59); BILIRUBIN,TOTAL 0.5 mg/dL (0.2-1.3); BLOOD UREA NITROGEN 7 mg/dL (7-21); CALCIUM 8.3 mg/dL (8.4-10.5); CARBON DIOXIDE 27 mmol/L (21-33); CHLORIDE 111 mmol/L (95-110); GFR AFRICAN-AMERICAN > 60; GLUCOSE,RANDOM 106 mg/dL (70-110); LIPASE 15 U/L (23-300); POTASSIUM 3.7 mmol/L (3.6-5.0); SODIUM 146 mmol/L (132-148)
[2016-12-07 06:03] VITALS: BP 156/99; PULSE 61
== END 2016-12-07 06:26 | disposition home or self-care (01) ==
LOC: ED 00:01
DX: K21.9 Gastro-esophageal reflux disease without esophagitis (principal)

== ENCOUNTER 2016-12-08 02:36 | Emergency (ER) | payer MEDICAID ==
[2016-12-08 02:52] VITALS: BMI 23.5
[2016-12-08 02:55] VITALS: BP 148/98; PULSE 63; RESP 16; TEMP 97.9; O2SAT 98
--- NOTE | 2016-12-08 03:32 | ED PDOC ---
Arrival/HPI - General Chief Complaint: Lower Extremity Problem/Injury Time Seen by Provider: 12/08/16 03:09 Historian: Patient - History of Present Illness Narrative History of Present Illness (Text): 12/08/16 03:39 This is a 41Y M with PMH of alcoholism and GERD who came in for R ankle swelling for the past few hours. He reports he stumbled on it and it is now hurting when he walks. Patient reports his last drink was a few hours ago. He was here yesterday for abdominal pain and does not complain of it today. He denies CP, SOB, n/v/d, numbness/tingling. Time/Duration: 4-6 hours Symptom Course: Unchanged Quality: Aching Severity Level: 3 Activities at Onset: Rest Context: Home Past Medical History - Provider Review Nursing Documentation Reviewed: Yes - Infectious Disease Hx of Infectious Diseases: None - Tetanus Immunization Tetanus Immunization: Unknown - Past Medical History Past Medical History: No Previous - Cardiac Hx Cardiac Disorders: No - Pulmonary Hx Respiratory Disorders: No Hx Tuberculosis: No - Neurological Hx Neurological Disorder: No Hx Seizures: No - HEENT Hx HEENT Disorder: No - Renal Hx Renal Disorder: No - Endocrine/Metabolic Hx Endocrine Disorders: No - Hematological/Oncological Hx Cancer: No - Integumentary Hx Dermatological Disorder: No - Musculoskeletal/Rheumatological Hx Musculoskeletal Disorders: No - Gastrointestinal Hx Gastrointestinal Disorders: Yes Hx Pancreatitis: Yes - Genitourinary/Gynecological Hx Genitourinary Disorders: No Hx Sexually Transmitted Diseases: No - Psychiatric Hx Psychophysiologic Disorder: No Hx Substance Use: No - Past Surgical History Past Surgical History: No Previous - Surgical History Hx Amputation: No Hx Appendectomy: No Hx Cardiac Catheterization: No Hx Cholecystectomy: No Hx Coronary Stent: No Hx Gastric Bypass Surgery: No Hx Hysterectomy: No Hx Joint Replacement: No Hx Kidney Transplant: No Hx Liver Transplant: No Hx Mastectomy: No Hx Musculoskeletal Surgery: No Hx Open Heart Surgery: No Hx Orthopedic Surgery: No Hx Splenectomy: No Hx Valve Replacement: No - Anesthesia Hx Anesthesia: No Hx Anesthesia Reactions: No Hx Malignant Hyperthermia: No - Suicidal Assessment Feels Threatened In Home Enviroment: No Family/Social History - Physician Review Nursing Documentation Reviewed: Yes Family/Social History: No Known Family HX Smoking Status: Heavy Smoker > 10 Cigarettes Daily Hx Alcohol Use: Yes Frequency of alcohol use: Few days per week Amount per day: 24 Hx Substance Use: No Allergies/Home Meds Allergies/Adverse Reactions: Allergies No Known Allergies Allergy (Verified 11/15/16 15:42) Home Medications: Home Meds Medication Instructions Recorded Confirmed No Known Home Med 12/08/16 12/08/16 Review of Systems - Physician Review All systems were reviewed & negative as marked: Yes - Review of Systems Constitutional: Normal Eyes: Normal ENT: Normal Respiratory: Normal Cardiovascular: Normal Gastrointestinal: Normal Genitourinary Male: Normal Musculoskeletal: Joint Swelling Skin: Normal Neurological: Normal Endocrine: Normal Hemo/Lymphatic: Normal Psychiatric: Normal Physical Exam Vital Signs Reviewed: Yes Vital Signs Temp Pulse Resp BP Pulse Ox 12/08/16 02:54 97.9 F 63 16 148/98 H 98 Temperature: Afebrile Blood Pressure: Hypertensive Pulse: Regular Respiratory Rate: Normal Appearance: Positive for: Well-Appearing, Non-Toxic, Comfortable Pain Distress: None Mental Status: Positive for: Alert and Oriented X 3 - Systems Exam Head: Present: Atraumatic, Normocephalic Pupils: Present: PERRL Extroacular Muscles: Present: EOMI Conjunctiva: Present: Normal Mouth: Present: Moist Mucous Membranes Neck: Present: Normal Range of Motion Respiratory/Chest: Present: Clear to Auscultation, Good Air Exchange. No: Respiratory Distress, Accessory Muscle Use Cardiovascular: Present: Regular Rate and Rhythm, Normal S1, S2. No: Murmurs Abdomen: Present: Normal Bowel Sounds. No: Tenderness, Distention, Peritoneal Signs Back: Present: Normal Inspection Upper Extremity: Present: Normal Inspection. No: Cyanosis, Edema Lower Extremity: Present: Normal Inspection, Edema (+1 pitting bilaterally ), Tenderness (to lateral medioli ) Neurological: Present: GCS=15, CN II-XII Intact, Speech Normal Skin: Present: Warm, Dry, Normal Color. No: Rashes Psychiatric: Present: Alert, Oriented x 3, Normal Insight, Normal Concentration Medical Decision Making ED Course and Treatment: 12/08/16 03:44 Impression: This is a 41Y M with PMH alcoholism, GERD who came to ED for R ankle pain. DDx: Ankle sprain versus fracture Plan: -- Ankle XR of R --Reassess Prior Visits: Notes and results from previous visits were reviewed. Progress Note: Ankle XR negative. Arthur bandage given. Discharge Instructions: Re-evaluation. Patient feels better. Discussed results and plan with patient who expresses understanding. All questions answered and there is agreement with the plan to discharge home with instructions. Patient stable for discharge. Return if symptoms persist or worsen. Re-evaluation Time: 03:15 Reassessment Condition: Unchanged - RAD Interpretation Narrative RAD Interpretations (Text): 12/08/16 03:46 R Ankle XR: Negative for fracture. 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 Ulcer: No History Surgical Site Infection Following: None - Disposition Have Diagnosis and Disposition been Completed?: Yes Diagnosis: Right ankle strain Disposition: HOME/ ROUTINE Disposition Time: 03:30 Patient Plan: Discharge Patient Problems: Current Active Problems Problem Status Onset Right ankle strain Acute Condition: GOOD Discharge Instructions (ExitCare): Ankle Exercises (GEN) Print Language: MACEDONIAN Additional Instructions: Mr. Glasgow, thank you for letting us take care of you today. Your provider was Dr. Michaels. You were treated for ankle strain. The emergency medical care you received today was directed at your acute symptoms. If you were prescribed any medication, please fill it and take as directed. It may take several days for your symptoms to resolve. Return to the Emergency Department if your symptoms worsen, do not improve, or if you have any other problems. Please contact your doctor or call one of the physicians/clinics you have been referred to that are listed on the Patient Visit Information form that is included in your discharge packet. Bring any paperwork you were given at discharge with you along with any medications you are taking to your follow up visit. Our treatment cannot replace ongoing medical care by a primary care provider (PCP) outside of the emergency department. Thank you for allowing the [facility] team to be part of your care today. If you had an X-Ray or CT scan: A Radiologist will review the ED reading if any change in treatment is needed we will contact you.
--- NOTE | 2016-12-08 14:37 | RAD ---
PROCEDURE: Right Ankle Radiographs. HISTORY: r/o fx COMPARISON: None FINDINGS: BONES: Normal. No fracture. JOINTS: Normal. No osteoarthritis. Ankle mortise maintained. Talar dome intact SOFT TISSUES: Normal. OTHER FINDINGS: None. IMPRESSION: Normal right ankle radiographs.
== END 2016-12-08 03:50 | disposition home or self-care (01) ==
LOC: ED 02:36
DX: S96.911A Strain of unspecified muscle and tendon at ankle and foot level, right foot, initial encounter (principal); W18.40XA Slipping, tripping and stumbling without falling, unspecified, initial encounter; Y92.89 Other specified places as the place of occurrence of the external cause

== ENCOUNTER 2016-12-23 00:09 | Emergency (ER) | payer MEDICAID ==
[2016-12-23 00:09] VITALS: BMI 23.5
--- NOTE | 2016-12-23 01:15 | ED PDOC ---
Arrival/HPI <Bruno Stovall - Last Filed: 12/23/16 02:16> <Kareen Callaway - Last Filed: 12/23/16 06:09> - General Chief Complaint: Abdominal Pain Time Seen by Provider: 12/23/16 00:22 - History of Present Illness Narrative History of Present Illness (Text): 12/23/16 01:46 41 y/o M w/ PMHx of HTN, borderline DM, EtOH abuse, and chronic pancreatitis presents to the ED w/ c/o abd painx 2days. Pain localized to epigastric region and worse after drinking. Pt reports drinking 3-5 Four locos per day. Pt admits to assoc watery diarrhea, subjective F/C, lightheadedness. Denies N/V, melena, hematochezia. Pt also c/o edema in RLE w/ pain. Swelling present for few months. Pt deneis SOB, CP, cough, palpitations. (Kareen Callaway) Past Medical History - Provider Review Nursing Documentation Reviewed: Yes - Infectious Disease Hx of Infectious Diseases: None - Tetanus Immunization Tetanus Immunization: Unknown - Past Medical History Past Medical History: No Previous - Cardiac Hx Cardiac Disorders: No - Pulmonary Hx Respiratory Disorders: No Hx Tuberculosis: No - Neurological Hx Neurological Disorder: No Hx Seizures: No - HEENT Hx HEENT Disorder: No - Renal Hx Renal Disorder: No - Endocrine/Metabolic Hx Endocrine Disorders: No - Hematological/Oncological Hx Cancer: No - Integumentary Hx Dermatological Disorder: No - Musculoskeletal/Rheumatological Hx Musculoskeletal Disorders: No - Gastrointestinal Hx Gastrointestinal Disorders: Yes Hx Pancreatitis: Yes - Genitourinary/Gynecological Hx Genitourinary Disorders: No Hx Sexually Transmitted Diseases: No - Psychiatric Hx Psychophysiologic Disorder: No Hx Substance Use: No - Past Surgical History Past Surgical History: No Previous - Surgical History Hx Amputation: No Hx Appendectomy: No Hx Cardiac Catheterization: No Hx Cholecystectomy: No Hx Coronary Stent: No Hx Gastric Bypass Surgery: No Hx Hysterectomy: No Hx Joint Replacement: No Hx Kidney Transplant: No Hx Liver Transplant: No Hx Mastectomy: No Hx Musculoskeletal Surgery: No Hx Open Heart Surgery: No Hx Orthopedic Surgery: No Hx Splenectomy: No Hx Valve Replacement: No - Anesthesia Hx Anesthesia: No Hx Anesthesia Reactions: No Hx Malignant Hyperthermia: No - Suicidal Assessment Feels Threatened In Home Enviroment: No <Kareen Callaway - Last Filed: 12/23/16 06:09> Family/Social History Family/Social History: No Known Family HX Smoking Status: Heavy Smoker > 10 Cigarettes Daily Hx Alcohol Use: Yes Amount per day: 24 Hx Substance Use: No <Kareen Callaway - Last Filed: 12/23/16 06:09> Allergies/Home Meds <Bruno Stoavll - Last Filed: 12/23/16 02:16> <Kareen Callaway - Last Filed: 12/23/16 06:09> Allergies/Adverse Reactions: Allergies No Known Allergies Allergy (Verified 11/15/16 15:42) Home Medications: Home Meds Medication Instructions Recorded Confirmed No Known Home Med 12/08/16 12/23/16 Review of Systems - Physician Review All systems were reviewed & negative as marked: Yes - Review of Systems Respiratory: absent: SOB Cardiovascular: absent: Chest Pain <Kareen Callaway Last Filed: 12/23/16 06:09> Physical Exam Appearance: Positive for: Well-Appearing Pain Distress: None Mental Status: Positive for: Alert and Oriented X 3 - Systems Exam Head: Present: Atraumatic, Normocephalic Pupils: Present: PERRL Extroacular Muscles: Present: EOMI Conjunctiva: Present: Injected Mouth: Present: Moist Mucous Membranes Respiratory/Chest: Present: Clear to Auscultation, Good Air Exchange. No: Respiratory Distress, Accessory Muscle Use Cardiovascular: Present: Regular Rate and Rhythm, Normal S1, S2. No: Murmurs Abdomen: Present: Tenderness (TTP epigastric), Distention, Normal Bowel Sounds. No: Peritoneal Signs, Rebound, Guarding Upper Extremity: Present: Normal Inspection Lower Extremity: Present: Edema (RLE 2+ pitting), CALF TENDERNESS (RLE), David' s Sign (RLE) Neurological: Present: GCS=15, Speech Normal Skin: Present: Warm, Dry, Normal Color Psychiatric: Present: Alert, Normal Affect, Normal Mood <Kareen Callaway Last Filed: 12/23/16 06:09> Vital Signs Temp Pulse Resp BP Pulse Ox 12/23/16 04:00 80 18 138/83 98 12/23/16 02:09 97.5 F L 57 L 18 143/98 H 99 Medical Decision Making - Lab Interpretations I have reviewed the lab results: Yes <Bruno Stovall - Last Filed: 12/23/16 02:16> - Lab Interpretations I have reviewed the lab results: Yes <Kareen Callaway - Last Filed: 12/23/16 06:09> ED Course and Treatment: Pt seen and evaluated with resident. Pt, whose past medical history includes alcohol abuse and pancreatitis, presented for epigastric pain for 2 days, worsened after consuming alcohol. Pt reports associated diarrhea, subjective fever, and chills. Also complaining of RLE swelling with discomfort. Aware and agree with HPI, clinical findings, plan, and management. Plan: -- US Duplex Lower Extremities -- Labs, lipase -- Protonix -- Toradol -- Reassess and disposition Prior Visits: Notes and results from previous visits were reviewed. (Bruno Stovall) 12/23/16 02:03 41 y/o M w/ abd pain and LE swelling - LE venous doppler r/o DVT - CBC, CMP, Lipase r/o pancreatitis - BAL 12/23/16 04:12 Pt sleeping comfortably. NAD. Doppler negative for DVT. 12/23/16 06:05 pt sleeping comfortably. NAD. cleared for discharge. (Kareen Callaway) - Lab Interpretations Lab Results: 12/23/16 02:05 12/23/16 02:05 Lab Results 12/23/16 02:05: Alcohol, Quantitative 280 H 12/23/16 02:05: Sodium 145, Potassium 3.2 L, Chloride 107, Carbon Dioxide 27, Anion Gap 14, BUN 7, Creatinine 0.6, Est GFR ( Amer) > 60, Est GFR (Non- Af Amer) > 60, Random Glucose 103, Calcium 8.3 L, Total Bilirubin 0.8, AST 195 H , ALT 105 H, Alkaline Phosphatase 174 H, Total Protein 7.3, Albumin 3.9, Globulin 3.4, Albumin/Globulin Ratio 1.2, Lipase 10 L 12/23/16 02:05: WBC 5.8 D, RBC 3.44 L, Hgb 11.7 L, Hct 33.7 L, MCV 98.0, MCH 34.0, MCHC 34.7, RDW 13.1, Plt Count 154, MPV 9.4, Neutrophils % (Manual) 34 L, Lymphocytes % (Manual) 58 H, Monocytes % (Manual) 6, Eosinophils % (Manual) 1, Basophils % (Manual) 1, Platelet Evaluation Normal - RAD Interpretation Narrative RAD Interpretations (Text): 12/23/16 03:15 Venous doppler negative for DVT per US tech (Kareen Callaway) Radiology Orders: 12/23/16 01:41 DUPLEX LOWER EXTRM VEIN BILAT [US] Stat - Medication Orders Current Medication Orders: Discontinued Medications Ketorolac Tromethamine (Toradol) 30 mg IVP STAT STA Stop: 12/23/16 02:06 Last Admin: 12/23/16 02:14 Dose: 30 mg Re-Assess: HILDA Pain Assessment Document 12/23/16 03:14 JOL (Rec: 12/23/16 03:53 JOL [id number]) Pain Reassessment Is this a pain reassessment? Yes Sleep Is patient sleeping during reassessment? Yes Pantoprazole Sodium (Protonix Inj) 40 mg IVP STAT STA Stop: 12/23/16 01:43 Last Admin: 12/23/16 02:10 Dose: 40 mg Potassium Chloride (K-Dur 20 Meq Er Tab) 40 meq PO STAT STA Stop: 12/23/16 02:47 Last Admin: 12/23/16 03:53 Dose: 40 meq - PA / BILINGUAL LOAN PROCESSOR / Resident Statement / has reviewed & agrees with the documentation as recorded. / has examined the patient and agrees with the treatment plan. <Bruno Stovall - Last Filed: 12/23/16 02:16> Disposition/Present on Arrival <Bruno Stovall - Last Filed: 12/23/16 02:16> - Present on Arrival Any Indicators Present on Arrival: No History of DVT/PE: No History of Uncontrolled Diabetes: No Urinary Catheter: No History of Decub. Ulcer: No History Surgical Site Infection Following: None - Disposition Have Diagnosis and Disposition been Completed?: Yes Disposition Time: 06:06 <Kareen Callaway - Last Filed: 12/23/16 06:09> - Disposition Diagnosis: Elevated ETOH level, Chronic pancreatitis, Elevated LFTs, Hypertension Disposition: HOME/ ROUTINE Condition: GOOD Discharge Instructions (ExitCare): Alcohol Intoxication (ED), Abuse of Alcohol (ED) Additional Instructions: OTC Omeprazole or Pepcid for epigastric pain
[2016-12-23 02:27] LABS: HEMATOCRIT 33.7 % (42.0-52.0); MEAN CORPUSCULAR HGB CONC 34.7 g/dl (31.0-37.0); MEAN PLATELET VOLUME 9.4 fl (7.0-11.0); PLATELET COUNT 154 10^3/uL (120.0-450.0); RED CELL DISTRIBUTION WIDTH 13.1 % (11.5-14.5); WHITE BLOOD COUNT 5.8 10^3/ul (4.5-11.0)
[2016-12-23 02:29] LABS: ALB/GLOB RATIO 1.2 (1.1-1.8); ALKALINE PHOSPHATASE 174 U/L (38-133); ALT/SGPT 105 U/L (7-56); AST/SGOT 195 U/L (15-59); BILIRUBIN,TOTAL 0.8 mg/dL (0.2-1.3); BLOOD UREA NITROGEN 7 mg/dL (7-21); CALCIUM 8.3 mg/dL (8.4-10.5); CARBON DIOXIDE 27 mmol/L (21-33); CHLORIDE 107 mmol/L (95-110); GFR AFRICAN-AMERICAN > 60; GLUCOSE,RANDOM 103 mg/dL (70-110); LIPASE 10 U/L (23-300); POTASSIUM 3.2 mmol/L (3.6-5.0); SODIUM 145 mmol/L (132-148); TOTAL PROTEIN 7.3 g/dL (5.8-8.3)
[2016-12-23 02:31] LABS: ADD MANUAL DIFF? YES
[2016-12-23 02:37] VITALS: RESP 18
[2016-12-23] MEDS ORDERED: Potassium Chloride 20 mEq ER Tab PO STA (02:46)
[2016-12-23 03:02] LABS: BASOPHIL 1 % (0.0-1.0); EOSINOPHIL 1 % (0.0-3.0); NEUTROPHIL 34 % (50.0-70.0); PLATELET ESTIMATE NORMAL (NORMAL)
[2016-12-23 06:44] VITALS: BP 128/86; PULSE 75; TEMP 97.6; O2SAT 99
--- NOTE | 2016-12-23 15:19 | US ---
HISTORY: Leg pain and swelling. Evaluate for DVT PHYSICIAN(S): Speedy Menchaca MD. TECHNIQUE: Duplex sonography and color-flow Doppler with graded compression were used to evaluate the deep venous systems of both lower extremities. FINDINGS: The visualized deep venous systems of both lower extremities are sonographically normal and compressible. Normal wave forms and augmentation are seen. There is no sonographic evidence for deep venous thrombosis in the visualized segments of both lower extremities. IMPRESSION: No sonographic evidence for deep venous thrombosis in the visualized segments of both lower extremities.
== END 2016-12-23 06:45 | disposition home or self-care (01) ==
LOC: ED 00:09
DX: K86.1 Other chronic pancreatitis (principal); R94.5 Abnormal results of liver function studies; I10 Essential (primary) hypertension; F10.129 Alcohol abuse with intoxication, unspecified; Y90.8 Blood alcohol level of 240 mg/100 ml or more; F17.210 Nicotine dependence, cigarettes, uncomplicated
CPT/HCPCS: 80053; 80320; 83690; 85025; 93970; 96374; 96375; 99283; C9113; J1885

== ENCOUNTER 2017-02-01 02:00 | Observation (INO) | payer MEDICAID ==
--- NOTE | 2017-02-01 03:04 | ED PDOC ---
Arrival/HPI - General Chief Complaint: GI Problem Time Seen by Provider: 02/01/17 02:01 Historian: Patient - History of Present Illness Narrative History of Present Illness (Text): 02/01/17 03:04 Felix Glasgow is a 41 year old male, whose past medical history includes pancreatitis and alcohol abuse, who presents to the Emergency department complaining of upper abdominal pain with 2 episodes of vomiting since 22:00. Patient states symptoms are similar in quality to previous episodes of pancreatitis and admits to drinking 2 beers tonight. Patient clinically sober. Patient denies any fever, chills, chest pain, diarrhea, urinary symptoms, headache, dizziness, or any other complaints. Time/Duration: 4-6 hours (22:00) Symptom Onset: Gradual Symptom Course: Unchanged Activities at Onset: Light Context: Home Past Medical History - Provider Review Nursing Documentation Reviewed: Yes - Infectious Disease Hx of Infectious Diseases: None - Tetanus Immunization Tetanus Immunization: Unknown - Past Medical History Past Medical History: No Previous - Cardiac Hx Cardiac Disorders: No - Pulmonary Hx Respiratory Disorders: No Hx Tuberculosis: No - Neurological Hx Neurological Disorder: No Hx Seizures: No - HEENT Hx HEENT Disorder: No - Renal Hx Renal Disorder: No - Endocrine/Metabolic Hx Endocrine Disorders: No - Hematological/Oncological Hx Blood Disorders: No - Integumentary Hx Dermatological Disorder: No - Musculoskeletal/Rheumatological Hx Musculoskeletal Disorders: No - Gastrointestinal Hx Gastrointestinal Disorders: Yes Hx Pancreatitis: Yes - Genitourinary/Gynecological Hx Genitourinary Disorders: No Hx Sexually Transmitted Diseases: No - Psychiatric Hx Psychophysiologic Disorder: No Hx Substance Use: No - Past Surgical History Past Surgical History: No Previous - Surgical History Hx Amputation: No Hx Appendectomy: No Hx Cardiac Catheterization: No Hx Cholecystectomy: No Hx Coronary Stent: No Hx Gastric Bypass Surgery: No Hx Hysterectomy: No Hx Joint Replacement: No Hx Kidney Transplant: No Hx Liver Transplant: No Hx Mastectomy: No Hx Musculoskeletal Surgery: No Hx Open Heart Surgery: No Hx Orthopedic Surgery: No Hx Splenectomy: No Hx Valve Replacement: No - Anesthesia Hx Anesthesia: No Hx Anesthesia Reactions: No Hx Malignant Hyperthermia: No - Suicidal Assessment Feels Threatened In Home Enviroment: No Family/Social History - Physician Review Nursing Documentation Reviewed: Yes Family/Social History: Unknown Family HX Smoking Status: Heavy Smoker > 10 Cigarettes Daily Hx Alcohol Use: Yes Amount per day: 24 Hx Substance Use: No Allergies/Home Meds Allergies/Adverse Reactions: Allergies No Known Allergies Allergy (Verified 11/15/16 15:42) Home Medications: Home Meds Medication Instructions Recorded Confirmed No Known Home Med 12/08/16 02/01/17 Review of Systems - Physician Review All systems were reviewed & negative as marked: Yes Physical Exam - Physical Exam Narrative Physical Exam (Text): - Review of Systems Constitutional: Normal. absent: Fatigue, Weight Change, Fevers Eyes: Normal ENT: Normal Respiratory: Normal absent: SOB, Cough, Sputum Cardiovascular: Normal absent: Chest pain, Palpitations, Syncope Gastrointestinal: +abdominal pain, +vomiting absent: Diarrhea, Nausea Genitourinary: Normal. absent: Dysuria, Frequency, Hematuria Musculoskeletal: Normal. absent: Arthralgias, Back Pain, Neck Pain Skin: Normal Neurological: Normal absent: Focal Weakness Endocrine: Normal Hemo/Lymphatic: Normal Psychiatric: Normal - Physical exam Patient appears age appropriate, speaking full sentences without difficulty - Systems Exam Head: Present: Atraumatic, Normocephalic Pupils: Present: PERRL Extraocular Muscles: Present: EOMI Conjunctiva: Present: Normal Mouth: Present: Moist Mucous Membranes Neck: Present: Normal Range of Motion. No: MIDLINE TENDERNESS, Paraspinal Tenderness Respiratory/Chest: Present: Clear to Auscultation, Good Air Exchange. No: Respiratory Distress, Accessory Muscle Use, Tachypnic Cardiovascular: Present: Regular Rate and Rhythm, Normal S1, S2, Peripheral Pulses Present. No: Murmurs Abdomen: Present: Normal Bowel Sounds, No: Tenderness, Peritoneal Signs, Rebound, Guarding, Distention Back: Present: Normal Inspection. No: Midline Tenderness, Paraspinal Tenderness Upper Extremity: Present: Normal Inspection. No: Cyanosis, Edema Lower Extremity: Present: Normal Inspection. No: Edema Neurological: Present: GCS=15, Speech Normal, cranial nerves II through XII fully intact with no cerebellar abnormality, neuro-sensory fully intact. No focal neurological deficits. Skin: Present: Warm, Dry, Normal Color. No: Rashes Lymphatic: Present: OX3, NI, NC Psychiatric: Present: Alert, Oriented x 3, Normal Insight, Normal Concentration Vital Signs Reviewed: Yes Vital Signs Temp Pulse Resp BP Pulse Ox 02/01/17 04:59 58 L 17 159/99 H 100 02/01/17 02:36 97.6 F 61 18 185/109 H 98 Temperature: Afebrile Blood Pressure: Hypertensive Pulse: Regular Respiratory Rate: Normal Appearance: Positive for: Well-Appearing, Non-Toxic, Comfortable Pain Distress: None Mental Status: Positive for: Alert and Oriented X 3 Medical Decision Making ED Course and Treatment: 02/01/17 03:04 Impression: 41 year old male complaining of upper abdominal pain and 2 episodes of vomiting. Benign exam. Differential Diagnosis included but are not limited to: pancreatitis vs. non- specific abdominal pain vs. colitis Plan: -- CT Abdomen and Pelvis with IV contrast -- Labs, lipase -- IV fluids -- Zofran -- Pepcid -- Reassess and disposition Prior Visits: Notes and results from previous visits were reviewed. On 12/23/2016, pt was seen in the Emergency department for abdominal pain. Pt was d/c home. Progress Notes: 02/01/17 04:05 Labs noted, AST elevated at 1369. CT Abdomen and Pelvis pending. 02/01/17 05:11 Case discussed with medical director/head team physician orthodontic laboratory technician, who is aware of admission. Case discussed with Dr. Stringer, who is aware and agrees with plan. Accepts pt in to hospitalist service. Pt will go to [facility] observation for further workup. 02/01/17 05:50 CT Abdomen and Pelvis Impression: Dictated and Authenticated by: Antonieta Sue MD Moderate distention of the urinary bladder. Findings consistent with chronic pancreatitis. Fatty infiltration of an enlarged liver. - Lab Interpretations Lab Results: 02/01/17 03:35 02/01/17 03:35 Lab Results 02/01/17 03:35: Sodium 145, Potassium 3.3 L, Chloride 105, Carbon Dioxide 29, Anion Gap 14, BUN 5 L, Creatinine 0.6, Est GFR ( Amer) > 60, Est GFR (Non -Af Amer) > 60, Random Glucose 95, Calcium 8.6, Total Bilirubin 1.4 H, AST 1369 H, ALT 263 H, Alkaline Phosphatase 345 H, Total Protein 8.0, Albumin 3.9, Globulin 4.1, Albumin/Globulin Ratio 1.0 L, Lipase 45 02/01/17 03:35: PT 12.1 H, INR 1.12 H, APTT 25.6 02/01/17 03:35: WBC 5.5, RBC 3.57, Hgb 12.5 L, Hct 36.2 L, MCV 101.4, MCH 35.0, MCHC 34.5, RDW 15.1 H, Plt Count 171, MPV 10.0, Gran % 46.5 L, Lymph % (Auto) 45.0 H, Hamilton % (Auto) 5.1, Eos % (Auto) 2.8, Baso % (Auto) 0.6, Gran # 2.54, Lymph # 2.5, Hamilton # 0.3, Eos # 0.2, Baso # 0.03 I have reviewed the lab results: Yes - RAD Interpretation Radiology Orders: 02/01/17 03:06 ABD & PELVIS IV CONTRAST ONLY [CT] Stat Health Psychologist: Radiologist - Medication Orders Current Medication Orders: Chlordiazepoxide (Librium) 25 mg PO Q4H PRN PRN Reason: Withdrawl Folic Acid (Folic Acid) 1 mg PO DAILY BRUCE Folic Acid 1 mg/ Thiamine HCl 100 mg/ Multivitamins/Vitamin C 10 ml/ Dextrose 1 ,011.2 mls @ 100 mls/hr IV .Q10H7M BRUCE Thiamine HCl (Vitamin B1 Tab) 100 mg PO DAILY BRUCE Discontinued Medications Famotidine (Pepcid 20mg/50ml Premix) 20 mg in 50 mls @ 100 mls/hr IV STAT STA Stop: 02/01/17 03:35 Last Admin: 02/01/17 03:40 Dose: 100 mls/hr Sodium Chloride (Sodium Chloride 0.9%) 1,000 mls @ 1,000 mls/hr IV .Q1H STA Stop: 02/01/17 04:05 Last Admin: 02/01/17 03:43 Dose: 1,000 mls/hr Iohexol (Omnipaque 350 100 Ml) Confirm Administered Dose 350 mg .ROUTE .STK-MED ONE Stop: 02/01/17 04:20 Ondansetron HCl (Zofran Inj) 4 mg IVP STAT STA Stop: 02/01/17 03:09 Last Admin: 02/01/17 03:43 Dose: 4 mg - Scribe Statement The provider has reviewed the documentation as recorded by the Becca Zhou Provider Scribe Attestation: All medical record entries made by the Scribcassandra were at my direction and personally dictated by me. I have reviewed the chart and agree that the record accurately reflects my personal performance of the history, physical exam, medical decision making, and the department course for this patient. I have also personally directed, reviewed, and agree with the discharge instructions and disposition. Disposition/Present on Arrival - Present on Arrival Any Indicators Present on Arrival: No History of DVT/PE: No History of Uncontrolled Diabetes: No Urinary Catheter: No History of Decub. Ulcer: No History Surgical Site Infection Following: None - Disposition Have Diagnosis and Disposition been Completed?: Yes Diagnosis: Abdominal pain, Transaminitis Disposition: HOSPITALIZED Disposition Time: 05:13 Patient Plan: Observation Patient Problems: Current Active Problems Problem Status Onset Abdominal pain Acute Transaminitis Acute Condition: FAIR
[2017-02-01] MEDS ORDERED: Famotidine 20mg/50ml 20 MG/50 ML BAG IV STA (03:06)
[2017-02-01] MEDS ORDERED: Sodium Chloride 0.9% 1,000 ML IV STA (03:06)
[2017-02-01 03:57] LABS: BASO # 0.03 K/mm3 (0.0-2.0); BASO % 0.6 % (0.0-3.0); EOS # 0.2 (0.0-0.7); EOS % 2.8 % (1.5-5.0); GRAN # 2.54 (1.4-6.5); GRAN % 46.5 % (50.0-68.0); HEMOGLOBIN 12.5 gm/dL (14.0-18.0); LYMPH # 2.5 (1.2-3.4); MEAN CELL VOLUME 101.4 fL (80.0-105.0); MEAN CORPUSCULAR HGB CONC 34.5 g/dl (31.0-37.0); MONO # 0.3 (0.1-0.6); MONO % 5.1 % (1.0-6.0); PLATELET COUNT 171 10^3/uL (120.0-450.0); RBC 3.57 10^6/uL (3.5-6.1); RED CELL DISTRIBUTION WIDTH 15.1 % (11.5-14.5); WHITE BLOOD COUNT 5.5 10^3/ul (4.5-11.0)
[2017-02-01 04:02] LABS: ALBUMIN 3.9 g/dL (3.0-4.8); ALT/SGPT 263 U/L (7-56); BLOOD UREA NITROGEN 5 mg/dL (7-21); CALCIUM 8.6 mg/dL (8.4-10.5); GFR AFRICAN-AMERICAN > 60; GFR NON-AFRICAN AMERICAN > 60; LIPASE 45 U/L (23-300)
[2017-02-01 04:14] LABS: AST/SGOT 1369 U/L (15-59)
[2017-02-01] MEDS ORDERED: Iohexol 350 MG/100 ML VIAL ONE (04:19)
[2017-02-01 04:21] LABS: INR 1.12 (0.93-1.08); PARTIAL THROMBOPLASTIN TIME 25.6 Seconds (23.7-30.8); PROTHROMBIN TIME 12.1 Seconds (9.9-11.8)
--- NOTE | 2017-02-01 05:48 | CT ---
EXAM: CT Abdomen and Pelvis With Intravenous Contrast CLINICAL HISTORY: 41 years old, male; Pain; Abdominal pain; Additional info: Abd pain TECHNIQUE: Axial computed tomography images of the abdomen and pelvis with intravenous contrast. This CT exam was performed using one or more of the following dose reduction techniques: automated exposure control, adjustment of the mA and/or kV according to patient size, and/or use of iterative reconstruction technique. CONTRAST: 96 mL of OMNI 350 administered intravenously. COMPARISON: CT - ABD PELVIS W/O PO OR IV CONT 09/21/2016 1:06:09 AM FINDINGS: Lower thorax: The bilateral lung bases are clear. ABDOMEN: Liver: The liver is enlarged, and of decreased attenuation - findings consistent with steatosis. Gallbladder and bile ducts: The gallbladder is decompressed, without calcified stones. No significant intra- or extrahepatic biliary ductal dilation. Pancreas: Bulky calcifications are identified throughout pancreas, findings suggesting prior bouts of pancreatitis. Spleen: No acute findings. Adrenals: No acute findings. Kidneys and ureters: No acute findings. No hydronephrosis or renal calculi. No discrete solid mass. PELVIS: Bladder: Moderate bladder distention. Reproductive: No acute findings. Appendix: The air filled appendix is of normal caliber (series 2, image 111; series 601, image 59) . ABDOMEN and PELVIS: Stomach and bowel: No obstruction. No mucosal thickening. Peritoneum: No significant fluid collection. No free air. Lymph nodes: No pathologically enlarged lymph nodes. Vasculature: Unremarkable. Bones: No acute fracture. IMPRESSION: Moderate distention of the urinary bladder. Findings consistent with chronic pancreatitis. Fatty infiltration of an enlarged liver.
[2017-02-01] MEDS ORDERED: Potassium Chloride 20 mEq ER Tab PO STA ×2 (06:02→15:35)
--- NOTE | 2017-02-01 06:38 | CP.PCM.HP ---
<Sidney Rivers - Last Filed: 02/01/17 06:37> History of Present Illness - History of Present Illness History of Present Illness: Sidney Rivers DO PGY-1 CC: Abdominal Pain HPI: Felix Glasgow is a 41 y/o AA male with a pertinent PMHx of alcoholism and chronic pancreatitis who presented with a c/o upper right quadrant and epigastric pain. Pt further complained of stabbing quality and 10/10 severity that started at 10PM after drinking two beers. Pt denies radiation and patient complained only of associated symptom of emesis. Of note, pt denies fevers, chills, nausea, diarrhea, chest pain, sob, PMHx: Trichomonas in the past PSHx: Pt denies Allergies: NKDA SocHx: EtOH: occasional Smokin ppd Illicits: denies. Pt has had trichomonas FamHx: Non-contributory, but HTN and DM Meds: Pt denies Present on Admission - Present on Admission Any Indicators Present on Admission: No Review of Systems - Review of Systems Review of Systems: ROS: Constitutional: pt denies fever, chills, generalized weakness ENT: pt denies dysphagia, ofalgia, hearing deficit, rhinorrhea Eyes: pt denies sudden loss of vision, diplopia, blurred vision MSK: pt denies muscle stiffness, joint pain, extremity cramping Cardio: pt denies cp, sob, dvt Pulm: pt denies cough, hemoptysis, wheeze GI: +see hpi : pt denies burning on urination, urinary frequency, hematuria, urinary urgency Neuro: pt denies paresis, paresthesia, dizziness, mi, numbness, tingling Derm: pt denies skin changes, lesions, nail changes Endo: pt denies intolerance to heat/cold, diaphoresis, night sweats, polydipsia Psych: pt denies anxiety, depression, mood changes Past Patient History - Infectious Disease Hx of Infectious Diseases: None - Tetanus Immunizations Tetanus Immunization: Unknown - Past Social History Smoking Status: Heavy Smoker > 10 Cigarettes Daily - CARDIAC Hx Cardiac Disorders: No - PULMONARY Hx Respiratory Disorders: No Hx Tuberculosis: No - NEUROLOGICAL Hx Neurological Disorder: No Hx Seizures: No - HEENT Hx HEENT Problems: No - RENAL Hx Chronic Kidney Disease: No - ENDOCRINE/METABOLIC Hx Endocrine Disorders: No - HEMATOLOGICAL/ONCOLOGICAL Hx Blood Disorders: No - INTEGUMENTARY Hx Dermatological Problems: No - MUSCULOSKELETAL/RHEUMATOLOGICAL Hx Musculoskeletal Disorders: No - GASTROINTESTINAL Hx Gastrointestinal Disorders: Yes Hx Pancreatitis: Yes - GENITOURINARY/GYNECOLOGICAL Hx Genitourinary Disorders: No Hx Sexually Transmitted Disorders: No - PSYCHIATRIC Hx Psychophysiologic Disorder: No Hx Substance Use: No - SURGICAL HISTORY Hx Amputation: No Hx Appendectomy: No Hx Cardiac Catheterization: No Hx Cholecystectomy: No Hx Coronary Stent: No Hx Gastric Bypass Surgery: No Hx Hysterectomy: No Hx Joint Replacement: No Hx Kidney Transplant: No Hx Liver Transplant: No Hx Mastectomy: No Hx Musculoskeletal Surgery: No Hx Open Heart Surgery: No Hx Orthopedic Surgery: No Hx Splenectomy: No Hx Valve Replacement: No - ANESTHESIA Hx Anesthesia: No Hx Anesthesia Reactions: No Hx Malignant Hyperthermia: No Meds Allergies/Adverse Reactions: Allergies Allergy/AdvReac Type Severity Reaction Status Date / Time No Known Allergies Allergy Verified 11/15/16 15:42 Physical Exam - Additional Findings Additional findings: Physical Exam: VS: As below Constitutional: well appearing, a&o x 4, nad Head and Neck: neck supple, no jvd, trachea midline, carotid midline, no cervical/head mass, atraumatic/normocephalic Eyes: winston, nonicteric sclera, eom intact ENT: auditory acuity grossly intact, throat not congested, no nasal deformity Cardio: rrr, no m/r/g, no carotid bruit, nml s1, s2 Pulm: no accessory muscle use, equal nml breath sounds bilaterally, ctab Abd: +mild guarding in RUQ and epigastric area; s/nd, nbs x 4 q, no palpable masses Derm: no rashes, no ulcers, no lesions Extr: no edema, no cyanosis, no calf tenderness, no lesions, no varicosities Neuro: no asterixis; cn II-XII grossly intact, ue and le 3+ muscle strength bilaterally, no los ue, le bilaterally and core Results - Vital Signs Recent Vital Signs: Last Vital Signs Temp 97.6 F 02/01/17 02:36 Pulse 58 L 02/01/17 04:59 Resp 17 02/01/17 04:59 BP 159/99 H 02/01/17 04:59 Pulse Ox 100 02/01/17 04:59 - Labs Result Diagrams: 02/01/17 03:35 02/01/17 03:35 Assessment & Plan - Assessment and Plan (Free Text) Assessment: A/P: Felix Glasgow is a 41 y/o AA male with a pertinent PMHx of alcoholism and chronic pancreatitis who presented with a c/o upper right quadrant and epigastric pain. 1.) Abdominal pain likely 2/2 Hepatitis VS Acute on Chronic Pancreatitis - Elevated AST/ALT (1369/263) - Hyperbilirubinemia: 1.4; Elevated Alk Phos: 345 - Coags elevated: PT/INR 12.1/1.12 - Lipase not elevated 45 - CT shows: liver inflammation - Hep Panel ordered - Zofran, Famotidine given in ER 2.) Possible Alcohol Intoxication - Alcohol level ordered - CIWA protocol in place, Alcohol withdrawal protocol in place, Librium PRN - Banana bag - Mg and Phos ordered 3.) Hypokalemia likely 2/2 emesis - K+ 3.3 - Kdur 4.) DVT PPHXS - SCDs 5.) GI PPHXS - Protonix <Ellen Stringer - Last Filed: 02/01/17 06:52> Results - Vital Signs Recent Vital Signs: Last Vital Signs Temp 97.6 F 02/01/17 02:36 Pulse 58 L 02/01/17 04:59 Resp 17 02/01/17 04:59 BP 159/99 H 02/01/17 04:59 Pulse Ox 100 02/01/17 04:59 - Labs Result Diagrams: 02/01/17 03:35 02/01/17 03:35 Attending/Attestation - Attestation I have personally seen and examined this patient.: Yes I have fully participated in the care of the patient.: Yes I have reviewed all pertinent clinical information: Yes Notes (Text): 02/01/17 06:51 Patient was seen by me when he was in bed # 2 in the ER . Agree with history, physical examination, assessment and plan. 41 year old male [place] male with history of HTN,chronic pancreatitis , alcohol abuse, GERD, family history of father having DM, mother having DM, colon cancer, social history positive for smoking 1/2 ppd for 10 years, consuming alcohol for 10 yeas , last time yesterday, having 2 beers, ROS reveling 10-15 lb involuntary weight loss, chills, seasonal allergies, comes in with vomiting, right upper abdominal pain, elevatedl LFT's, hypokalemia, borderline anemia.
[2017-02-01] MEDS: Folic Acid 1 MG, Thiamine 100 MG, Multivitamin (MVI) 10 ML in Dextrose 5% In Water 1,00... IV SCH (08:43)
[2017-02-01 09:31] LABS: MAGNESIUM 1.6 mg/dL (1.7-2.2)
--- NOTE | 2017-02-01 12:00 | US ---
HISTORY: elevated lft, r/o cbd stone or biliary obstruction COMPARISON: 10/29/2016 TECHNIQUE: Sonographic evaluation of the abdomen. FINDINGS: LIVER: Measures 18.6 cm. Hepatopedal blood flow. Fatty infiltration manifest ultrasonographically as increased echogenicity of the liver parenchyma. No mass. No intrahepatic bile duct dilatation. GALLBLADDER: Cholelithiasis. Negative study for gallbladder wall thickening, pericholecystic fluid, sonographic Alvarenga's sign. COMMON BILE DUCT: Measures 5.5 mm. No stones. No dilatation. PANCREAS: Unremarkable as visualized. No mass. No ductal dilatation. RIGHT KIDNEY: Measures 4.7 x 11cm. Normal echogenicity. No calculus, mass, or hydronephrosis. LEFT KIDNEY: Measures 6.9 x 11.3cm. Normal echogenicity. No calculus, mass, or hydronephrosis. SPLEEN: Normal in size and contour. No mass. AORTA: No aneurysmal dilatation. IVC: Unremarkable. OTHER FINDINGS: None. IMPRESSION: Hepatomegaly/hepatic steatosis. Cholelithiasis. No sonographic evidence of acute cholecystitis. No significant interval change compared to the prior examination(s).
[2017-02-01 12:21] LABS: HEPATITIS B SURFACE AG NEGATIVE (NEGATIVE)
[2017-02-01 12:26] LABS: HEPATITIS A IGM NEGATIVE (NEGATIVE); HEPATITIS B CORE AB NEGATIVE (NEGATIVE)
[2017-02-01 12:38] LABS: HEPATITIS C ANTIBODY NEGATIVE (NEGATIVE)
[2017-02-01] MEDS ORDERED: Magnesium Sulfate 2 GM in Sodium Chloride 0.9% 100 ML IVPB ONE (13:38)
[2017-02-01 14:27] VITALS: BMI 22.3
[2017-02-02] MEDS: Folic Acid 1 MG, Thiamine 100 MG, Multivitamin (MVI) 10 ML in Dextrose 5% In Water 1,00... IV SCH ×2 (02:50→22:59)
[2017-02-02] MEDS ORDERED: HYDROmorphone 0.5 mg/0.5 ml ISec IVP STA (05:13)
[2017-02-02] MEDS ORDERED: Lactated Ringer's 1,000 ML IV SCH (05:13)
[2017-02-02 07:47] LABS: BASO # 0.03 K/mm3 (0.0-2.0); BASO % 0.4 % (0.0-3.0); EOS # 0.1 (0.0-0.7); EOS % 1.7 % (1.5-5.0); GRAN # 5.24 (1.4-6.5); GRAN % 70.4 % (50.0-68.0); LYMPH # 1.7 (1.2-3.4); LYMPH % 22.4 % (22.0-35.0); MEAN CELL VOLUME 103.1 fL (80.0-105.0); MEAN CORPUSCULAR HEMOGLOBIN 34.1 pg (25.0-35.0); MEAN PLATELET VOLUME 10.2 fl (7.0-11.0); MONO # 0.4 (0.1-0.6); MONO % 5.1 % (1.0-6.0); PLATELET COUNT 154 10^3/uL (120.0-450.0); RBC 3.23 10^6/uL (3.5-6.1); RED CELL DISTRIBUTION WIDTH 15.3 % (11.5-14.5); WHITE BLOOD COUNT 7.5 10^3/ul (4.5-11.0)
[2017-02-02 08:03] LABS: ALBUMIN 3.5 g/dL (3.0-4.8); ALT/SGPT 162 U/L (7-56); AST/SGOT 357 U/L (15-59); BLOOD UREA NITROGEN 4 mg/dL (7-21); CALCIUM 8.8 mg/dL (8.4-10.5); GFR AFRICAN-AMERICAN > 60; GFR NON-AFRICAN AMERICAN > 60; MAGNESIUM 1.8 mg/dL (1.7-2.2)
[2017-02-02] MEDS ORDERED: Potassium Chloride 10 mEq ER Tab PO STA (09:38)
[2017-02-02] MEDS: Morphine 2 mg/ml ISec IVP PRN ×3 (10:22→20:18)
[2017-02-02] MEDS: Multivitamin With Minerals Tab PO SCH (10:23)
[2017-02-02] MEDS: Lactated Ringer's 1,000 ML IV SCH ×2 (11:01→18:35)
--- NOTE | 2017-02-02 13:37 | PN ---
DATE: 02/02/2017 SUBJECTIVE: Mr. Glasgow is a 41-year-old black male with known past medical history of alcohol abuse and pancreatitis. The patient was evaluated yesterday, but the consult is still not in the patient's chart. This morning the patient indicates pain is the same. He is not getting any analgesic as he requested. His urine output is somewhat better with fluids. He reports no nausea and was able to handle little bit of ice chips. Denies any rectal bleeding or hematemesis. The abdomen is still distended. Pain is still rated roughly 7/10. No bowel movements. PHYSICAL EXAMINATION: VITAL SIGNS: I reviewed this patients vital signs. HEENT: Significant for dry mouth. LUNGS: Clear to auscultation. HEART: Regular rate. ABDOMEN: Significant for decreased bowel sounds. He is tender in the area of the epigastric, left upper quadrant, left paraumbilical. LABORATORY DATA: Reviewed yesterday. New labs are pending for today. ASSESSMENT AND PLAN: This is a 41-year-old black male admitted with signs and symptoms of pancreatitis. As of yesterday morning, his alk phos was 345 with AST and ALT ratio of 1.4. Note that he was mildly hypokalemic at that time point. As indicated previously, the patient is currently getting a banana bag with D5W. Suggest after multivitamin infusion, the patient's IV be switched to ringer's lactate at, at least 150 an hour or more. Note that the patient is fully depleted and is not getting enough fluids. I would also suggest medication for pain control. Review of his orders indicate no consistent order for analgesic. In discussion with the nurses this morning, indicated that he received one dose of tramadol. He needs something. Please consider tramadol on a more reasonable basis of may be q.6 hours or some low-dose Dilaudid. I ordered a small volume of ice chips for this patient. Now that this would be small volume only and I urged the patient to restrain himself, just to use enough ice to keep his mouth from being dehydrated. Kevin Ma DO, PhD [facility] # [id number] MARIA E
--- NOTE | 2017-02-02 15:40 | CP.PCM.PN ---
<ASHWINI LAWLER - Last Filed: 02/02/17 15:36> Subjective - Date & Time of Evaluation Date of Evaluation: 02/02/17 Time of Evaluation: 09:00 - Subjective Subjective: Medicine Progress Note: Pt seen and assessed at bedside. Pt complains that his pain has not been controlled with just tramadol. The quality, location and intensity of the pain has not changed since admission, per pt. Pt denies fever, headache, changes in vision, chest pain, shortness of breath, nausea/vomiting or diarrhea. Objective - Vital Signs/Intake and Output Vital Signs (last 24 hours): Temp Pulse Resp BP Pulse Ox 97.8 F 78 20 152/98 H 100 02/02/17 07:58 02/02/17 10:23 02/02/17 07:58 02/02/17 10:23 02/02/17 07:58 Intake and Output: 02/02/17 02/02/17 06:59 18:59 Intake Total 0 Output Total 800 Balance -800 - Medications Medications: Current Medications Amlodipine Besylate (Norvasc) 5 mg PO DAILY [facility] Last Admin: 02/02/17 10:23 Dose: 5 mg Folic Acid (Folic Acid) 1 mg PO DAILY [facility] Last Admin: 02/02/17 10:23 Dose: 1 mg Hydralazine HCl (Apresoline) 10 mg IVP Q4H PRN PRN Reason: Systolic Blood Pressure Last Admin: 02/02/17 01:13 Dose: 10 mg Lactated Ringer's (Lactated Ringer's) 1,000 mls @ 150 mls/hr IV .Q6H40M [facility] Last Admin: 02/02/17 11:01 Dose: 150 mls/hr Lorazepam (Ativan) 2 mg IVP Q2H PRN; Protocol PRN Reason: Symptoms of alcohol withdrawl Lorazepam (Ativan) 2 mg IVP Q4H [facility] PRN Reason: Protocol Last Admin: 02/02/17 14:23 Dose: Not Given Morphine Sulfate (Morphine) 2 mg IVP Q4H PRN PRN Reason: Pain, severe (8-10) Last Admin: 02/02/17 10:22 Dose: 2 mg Multivitamins/Minerals (Therapeutic-M Tab) 1 tab PO 0800 [facility] Last Admin: 02/02/17 10:23 Dose: 1 tab Pantoprazole Sodium (Protonix Inj) 40 mg IVP DAILY [facility] Last Admin: 02/02/17 10:23 Dose: 40 mg Thiamine HCl (Vitamin B1 Tab) 100 mg PO DAILY [facility] Last Admin: 02/02/17 10:23 Dose: 100 mg - Labs Labs: 02/02/17 07:00 02/02/17 07:00 PT 12.1 Seconds (9.9-11.8) H 02/01/17 03:35 INR 1.12 (0.93-1.08) H 02/01/17 03:35 APTT 25.6 Seconds (23.7-30.8) 02/01/17 03:35 - Constitutional Appears: No Acute Distress - Head Exam Head Exam: NORMAL INSPECTION, NORMOCEPHALIC - Eye Exam Eye Exam: EOMI, Normal appearance - ENT Exam ENT Exam: Mucous Membranes Dry - Neck Exam Neck Exam: Full ROM - Respiratory Exam Respiratory Exam: Clear to Ausculation Bilateral, NORMAL BREATHING PATTERN. absent: Rales, Rhonchi, Wheezes, Respiratory Distress - Cardiovascular Exam Cardiovascular Exam: REGULAR RHYTHM, RRR. absent: +S1, +S2 - GI/Abdominal Exam GI & Abdominal Exam: Tenderness, Hypoactive Bowel Sounds. absent: Distended, Soft, Normal Bowel Sounds - Extremities Exam Extremities Exam: absent: Calf Tenderness, Pedal Edema - Neurological Exam Neurological Exam: Alert, Awake, Oriented x3 - Psychiatric Exam Psychiatric exam: Normal Affect, Normal Mood - Skin Skin Exam: Dry, Intact, Normal Color, Warm Assessment and Plan - Assessment and Plan (Free Text) Assessment: Felix Glasgow is a 41 y/o AA male with a pertinent PMHx of alcoholism and chronic pancreatitis who presented with a c/o upper right quadrant and epigastric pain. Plan: 1. Likely acute on chronic pancreatitis - CT showed fatty infiltration of enlarged liver, findings consistent with chronic pancreatitis - Abdominal US showed hepatomegaly/hepatic steatosis, cholelithiasis with no evidence of cholecystis - Hep Panel negative - liver enzymes trending down (AST from 1369 to 357, ALT from 263 to 162) - GI consulted and recommended to switch from NS to LR and to increase pain control, all recs appreciated - LR @150 and morphine 2mg q4 added, based on GI recs - changed pt to clear liquid diet to prevent dehydration; previously NPO 2. History of alcohol abuse/withdrawal - Alcohol level 162 on 02/01 - folic acid, multivitamins and thiamine PO - CIWA protocol in place, Alcohol withdrawal protocol in place, Ativan PRN - recent Mg/Phos WNL 3. Hypokalemia - Potassium continues to be 3.3 on 02/02 - Kdur 40meq given - most recent mag/phos WNL - will cont to monitor with daily CMP's 4. Hypertension - Norvasc 5mg milena and hydralazine PRN 5. GI/DVT Prophylaxis -Protonix/SCD's Patient seen and case discussed with attending, Dr. Rodriguez. <Michael LI,[facility] - Last Filed: 02/02/17 17:21> Objective - Vital Signs/Intake and Output Vital Signs (last 24 hours): Temp Pulse Resp BP Pulse Ox 97.8 F 106 H 20 161/90 H 100 02/02/17 07:58 02/02/17 16:06 02/02/17 07:58 02/02/17 16:06 02/02/17 07:58 Intake and Output: 02/02/17 02/02/17 06:59 18:59 Intake Total 840 Output Total 1500 Balance -660 - Medications Medications: Current Medications Amlodipine Besylate (Norvasc) 5 mg PO DAILY [facility] Last Admin: 02/02/17 10:23 Dose: 5 mg Folic Acid (Folic Acid) 1 mg PO DAILY [facility] Last Admin: 02/02/17 10:23 Dose: 1 mg Hydralazine HCl (Apresoline) 10 mg IVP Q4H PRN PRN Reason: Systolic Blood Pressure Last Admin: 02/02/17 16:06 Dose: 10 mg Lactated Ringer's (Lactated Ringer's) 1,000 mls @ 150 mls/hr IV .Q6H40M [facility] Last Admin: 02/02/17 11:01 Dose: 150 mls/hr Lorazepam (Ativan) 2 mg IVP Q2H PRN; Protocol PRN Reason: Symptoms of alcohol withdrawl Lorazepam (Ativan) 2 mg IVP Q4H [facility] PRN Reason: Protocol Last Admin: 02/02/17 14:23 Dose: Not Given Morphine Sulfate (Morphine) 2 mg IVP Q4H PRN PRN Reason: Pain, severe (8-10) Last Admin: 02/02/17 16:04 Dose: 2 mg Multivitamins/Minerals (Therapeutic-M Tab) 1 tab PO 0800 [facility] Last Admin: 02/02/17 10:23 Dose: 1 tab Pantoprazole Sodium (Protonix Inj) 40 mg IVP DAILY [facility] Last Admin: 02/02/17 10:23 Dose: 40 mg Thiamine HCl (Vitamin B1 Tab) 100 mg PO DAILY [facility] Last Admin: 02/02/17 10:23 Dose: 100 mg - Labs Labs: 02/02/17 07:00 02/02/17 07:00 PT 12.1 Seconds (9.9-11.8) H 02/01/17 03:35 INR 1.12 (0.93-1.08) H 02/01/17 03:35 APTT 25.6 Seconds (23.7-30.8) 02/01/17 03:35 Attending/Attestation - Attestation I have personally seen and examined this patient.: Yes I have fully participated in the care of the patient.: Yes I have reviewed all pertinent clinical information, including history, physical exam and plan: Yes Notes (Text): 02/02/17 16:26 Patient was seen and examined with medical typist. Patient abdominal pain is slowly improving.LFT are coming down.There is no sign of alcohol withdrawal at this time. Patient has been started on Morphine for pain control. We will also start patient on clear liquid diet and will monitor. The issue of ongoing alcohol abuse was discussed in detail with patient. Management plan was discussed in detail with patient Education was provided.
--- NOTE | 2017-02-02 17:38 | CON ---
DATE: 02/01/2017 HISTORY OF PRESENT ILLNESS: Mr. Glasgow is 41-year-old black male, known to consultants with past medical history of pancreatitis, substance abuse, including alcohol. Felix complains of epigastric right upper quadrant pain which is going on for the past several days. He related to drinking several beers which apparently precipitated the event. Denies hematemesis or rectal bleeding. The patient has had multiple admissions for pancreatitis in the past. The patient is currently on pain medication and relates that the pain medication is less than adequate. Complained of dry mouth, however, urine output is within normal limits. Notes that the urine color is straw colored. The abdomen is only mildly distended, but he exhibits pain especially severe in the left upper quadrant. PHYSICAL EXAMINATION: VITAL SIGNS: I reviewed this patient's vital signs. HEENT: Significant for dry mouth. LUNGS: Clear to auscultation. HEART: Regular rhythm. ABDOMEN: Exam is significant for being mildly distended and irregular bowel sounds. He is tender in periumbilical area, epigastric left upper quadrant, left paraumbilical. LABORATORY DATA: I reviewed the patient's laboratory data which includes transaminases, especially the AST, ranged from 100 up to 1369, ALT of 59, elevated up to 263, and of that the patient's bilirubin has decreased from 5.1 on admission to 1.4. Review of previous admission, laboratory trends indicated a similar type of phenomenon with the AST especially during previous admissions. His alkaline phosphatase has been in the range of the high 190s up about 3 to 4 hour period of time on admission. His INR has been within normal limits. H and H significant for hemoglobin of 12.5 with the hematocrit of 36, and platelet count of 171. RADIOLOGY DATA: I reviewed this patient's radiology data. The patient had MRCP on 10/30/2016, which indicated no obstruction and no bile duct dilatation. His abdominal ultrasound on this particular admission showed no bile duct dilatation, the liver exhibited increased echogenicity and it was negative fluid around the gallbladder, but there was cholelithiasis. DIAGNOSTIC DATA: I reviewed the abdomen and pelvic CAT scan. CT is significant for fatty infiltration, chronic pancreatitis with diffuse calcifications throughout the pancreas, as well as some moderate distention in the urinary bladder. ASSESSMENT: This is a 41-year-old black male with chronic history of pancreatitis, admitted for the same. Review of laboratory data indicate medications of Ativan plus IV fluids. Note that the patient is not on D5W. Note that in case of pancreatitis, D5W for itself is not the best recommended solution. Suggest Ringer's lactate at roughly 125 to 150 an hour. Note that he is on a suboptimal infusion rate of a 100 at the current time in point. Please consider change IV fluids to Ringer's lactate. As far as the proton pump inhibitors and H2 noble that is adequate at the current time point. Thiamine was also ordered. As far as pain medications are concerned, we spoke with the nurse about this. Analgesic will be at the discretion of the attending. I do not see anything in the patient's formulary 2 years of pain control. Otherwise, the patient should be on n.p.o. guidance at the current time point. We will reassess this patient tomorrow. Kevin Ma DO, PhD [facility]
[2017-02-03] MEDS: Lactated Ringer's 1,000 ML IV SCH ×2 (01:04→08:29)
[2017-02-03] MEDS: Morphine 2 mg/ml ISec IVP PRN (01:08)
[2017-02-03 07:30] VITALS: BP 152/97; PULSE 89; RESP 19; TEMP 98.6; O2SAT 94
[2017-02-03 07:52] LABS: BASO # 0.02 K/mm3 (0.0-2.0); BASO % 0.3 % (0.0-3.0); EOS # 0.1 (0.0-0.7); EOS % 1.3 % (1.5-5.0); GRAN # 5.07 (1.4-6.5); GRAN % 74.3 % (50.0-68.0); HEMOGLOBIN 12.1 gm/dL (14.0-18.0); LYMPH # 1.4 (1.2-3.4); LYMPH % 20.1 % (22.0-35.0); MEAN CELL VOLUME 104.9 fL (80.0-105.0); MEAN CORPUSCULAR HEMOGLOBIN 34.8 pg (25.0-35.0); MEAN CORPUSCULAR HGB CONC 33.2 g/dl (31.0-37.0); MEAN PLATELET VOLUME 10.6 fl (7.0-11.0); MONO # 0.3 (0.1-0.6); PLATELET COUNT 148 10^3/uL (120.0-450.0); RBC 3.48 10^6/uL (3.5-6.1); RED CELL DISTRIBUTION WIDTH 15.5 % (11.5-14.5); WHITE BLOOD COUNT 6.8 10^3/ul (4.5-11.0)
[2017-02-03] MEDS: Multivitamin With Minerals Tab PO SCH (08:26)
[2017-02-03 08:34] LABS: ALBUMIN 3.8 g/dL (3.0-4.8); ALT/SGPT 120 U/L (7-56); AST/SGOT 160 U/L (15-59); BLOOD UREA NITROGEN 3 mg/dL (7-21); CALCIUM 9.3 mg/dL (8.4-10.5); GFR AFRICAN-AMERICAN > 60; GFR NON-AFRICAN AMERICAN > 60
--- NOTE | 2017-02-03 12:13 | CP.PCM.PN ---
<ASHWINI LAWLER - Last Filed: 02/03/17 18:46> Subjective - Date & Time of Evaluation Date of Evaluation: 02/03/17 Time of Evaluation: 07:30 - Subjective Subjective: Medicine Progress Note: Pt was seen and assessed at bedside. Pt had no new complaints but did report that he would like to advance his diet. Pt denied headache, changes in vision, chest pain, shortness of breath, N/V or diarrhea. Objective - Vital Signs/Intake and Output Vital Signs (last 24 hours): Temp Pulse Resp BP Pulse Ox 98.6 F 89 19 152/97 H 94 L 02/03/17 07:29 02/03/17 09:20 02/03/17 07:29 02/03/17 09:20 02/03/17 07:29 Intake and Output: 02/03/17 02/03/17 06:59 18:59 Intake Total 3940 Output Total 0 Balance 3940 - Medications Medications: Current Medications Amlodipine Besylate (Norvasc) 10 mg PO DAILY [facility] Clonidine HCl (Catapres) 0.1 mg PO TID PRN PRN Reason: Systolic Blood Pressure Folic Acid (Folic Acid) 1 mg PO DAILY [facility] Last Admin: 02/03/17 09:20 Dose: 1 mg Lactated Ringer's (Lactated Ringer's) 1,000 mls @ 150 mls/hr IV .Q6H40M [facility] Last Admin: 02/03/17 08:29 Dose: 150 mls/hr Lorazepam (Ativan) 2 mg IVP Q4H PRN; Protocol PRN Reason: Agitation Morphine Sulfate (Morphine) 2 mg IVP Q4H PRN PRN Reason: Pain, severe (8-10) Last Admin: 02/03/17 01:08 Dose: 2 mg Multivitamins/Minerals (Therapeutic-M Tab) 1 tab PO 0800 [facility] Last Admin: 02/03/17 08:26 Dose: 1 tab Pantoprazole Sodium (Protonix Inj) 40 mg IVP DAILY [facility] Last Admin: 02/03/17 09:20 Dose: 40 mg Thiamine HCl (Vitamin B1 Tab) 100 mg PO DAILY [facility] Last Admin: 02/03/17 09:20 Dose: 100 mg - Labs Labs: 02/03/17 07:00 02/03/17 07:00 PT 12.1 Seconds (9.9-11.8) H 02/01/17 03:35 INR 1.12 (0.93-1.08) H 02/01/17 03:35 APTT 25.6 Seconds (23.7-30.8) 02/01/17 03:35 - Constitutional Appears: No Acute Distress - Head Exam Head Exam: NORMAL INSPECTION - Eye Exam Eye Exam: EOMI, Normal appearance - ENT Exam ENT Exam: Mucous Membranes Moist - Neck Exam Neck Exam: Full ROM - Respiratory Exam Respiratory Exam: Clear to Ausculation Bilateral, NORMAL BREATHING PATTERN. absent: Rales, Rhonchi, Wheezes - Cardiovascular Exam Cardiovascular Exam: REGULAR RHYTHM, +S1, +S2. absent: Murmur - GI/Abdominal Exam GI & Abdominal Exam: Normal Bowel Sounds - Extremities Exam Extremities Exam: absent: Calf Tenderness, Pedal Edema - Back Exam Back Exam: NORMAL INSPECTION - Neurological Exam Neurological Exam: Alert, Awake, Oriented x3 - Psychiatric Exam Psychiatric exam: Normal Affect, Normal Mood - Skin Skin Exam: Dry, Intact, Normal Color, Warm Assessment and Plan - Assessment and Plan (Free Text) Assessment: Mr. Glasgow is a 41 year old AA male with a pertinent past medical history of alcoholism and chronic pancreatitis who presented with upper right quadrant and epigastric pain. Plan: 1. Likely acute on chronic pancreatitis - CT showed fatty infiltration of enlarged liver, findings consistent with chronic pancreatitis - Abdominal US showed hepatomegaly/hepatic steatosis, cholelithiasis with no evidence of cholecystis - Hep Panel negative - liver enzymes trending down (AST from 1369 to 160, ALT from 263 to 120) - LR @150 and morphine 2mg q4 added, based on GI recs - changed pt to full liquid diet and will advance as tolerated 2. History of alcohol abuse/withdrawal - Alcohol level 162 on 02/01 - folic acid, multivitamins and thiamine PO - CIWA protocol in place, Alcohol withdrawal protocol in place, Ativan PRN - most recent Mg/Phos WNL - d/c telemetry monitoring 3. Hypokalemia - Potassium 3.8 on 02/03 - most recent mag/phos WNL - will cont to monitor with daily CMP's 4. Hypertension - Norvasc increased to 10mg - added 0.1 Clonidine for better control - d/c hydralazine 5. GI/DVT Prophylaxis -Protonix/SCD's Patient seen and case discussed with attending, Dr. Swanson. <Erick Swanson - Last Filed: 02/04/17 07:58> Objective - Vital Signs/Intake and Output Vital Signs (last 24 hours): Temp Pulse Resp BP Pulse Ox 98.6 F 89 19 152/97 H 94 L 02/03/17 07:29 02/03/17 09:20 02/03/17 07:29 02/03/17 09:20 02/03/17 07:29 - Labs Labs: 02/03/17 07:00 02/03/17 07:00 PT 12.1 Seconds (9.9-11.8) H 02/01/17 03:35 INR 1.12 (0.93-1.08) H 02/01/17 03:35 APTT 25.6 Seconds (23.7-30.8) 02/01/17 03:35 Attending/Attestation - Attestation I have personally seen and examined this patient.: Yes I have fully participated in the care of the patient.: Yes I have reviewed all pertinent clinical information, including history, physical exam and plan: Yes Notes (Text): 02/04/17 07:55 Attending note; Patient seen and examined with resident. Patient is a 41-year-old with a history of long-standing alcohol abuse, chronic pancreatitis is admitted with acute alcohol intoxication and abdominal discomfort. Getting treated with IV fluids, multivitamin, thiamine, folic acid. Taper IV Ativan. Acute on chronic pancreatitis; GI evaluation appreciated. Started on clear liquid diet. Elevated LFTs; secondary to alcohol intoxication. Improving significantly. Hepatitis profile is negative. Hypertension; secondary to alcohol withdrawal. Continue Norvasc and clonidine. Patient does not take any medications at home. Patient denies any anxiety, depression. Refused psychiatric evaluation. Does not have a PMD. He is advised to call insurance to get PMD for outpatient lab work. Complete alcohol cessation is strongly advised.
--- NOTE | 2017-02-04 02:51 | PN ---
DATE: 02/03/2017 SUBJECTIVE: I examined Mr. Glasgow this morning. He is a 41-year-old black male with past medical history of calcific pancreatitis, admitted for exacerbation of same due to alcohol intake. The patient noticed progressing chest pain. Pain has decreased somewhat, rated today similar range of between 4 and 5 out of 10, decreased nausea, he had ice chips yesterday with no problem. He is passing some gas. There is no shortness of breath, hematemesis or rectal bleeding. PHYSICAL EXAMINATION VITAL SIGNS: I reviewed this patient's vital signs. HEENT: Exam is significant for some dry mouth. He is passing urine, however. LUNGS: Clear to auscultation. HEART: Regular rhythm. ABDOMEN: Still mildly distended, pain epigastric, also some tenderness experienced in the left upper quadrant, left paraumbilical. LABORATORY DATA: Pending for today. ASSESSMENT AND PLAN: This is a 41-year-old black male admitted with signs and symptoms of pancreatitis, improving on current therapeutic regimen which includes analgesics as well as multivitamin. Currently on lactated Ringer's at the rate of 150 an hour. The patient expressed a wish for a liquid-type diet which presumably he will start sometime today. We will continue him on current medications including Ativan as well as analgesics as needed. Morphine is ordered every 4 hours on a p.r.n. basis. By the way, review of laboratory data indicates a mild bump up of his bilirubin to 3.6 from 1.4, however, the transaminases have gone down, that is the AST 1369 went down to 357, ALT 263 to 162, alk phos relatively unchanged. Note that on past admissions, his bilirubin has been in the range of mid 3s to over 4s during pancreatitis episodes. Kevin Ma DO, PhD [facility]
--- NOTE | 2017-02-04 21:21 | CP.PCM.DIS ---
<ASHWINI LAWLER - Last Filed: 02/04/17 21:18> Provider - Provider Date of Admission: 02/01/17 05:13 Attending physician: Erick Swanson MD Primary care physician: No PCP Consults: Gastroenterology- Dr. Ma Time Spent in preparation of Discharge (in minutes): 54 Hospital Course - Lab Results Lab Results: Most Recent Lab Values WBC 6.8 10^3/ul (4.5-11.0) 02/03/17 07:00 RBC 3.48 10^6/uL (3.5-6.1) L 02/03/17 07:00 Hgb 12.1 gm/dL (14.0-18.0) L 02/03/17 07:00 Hct 36.5 % (42.0-52.0) L 02/03/17 07:00 MCV 104.9 fL (80.0-105.0) 02/03/17 07:00 MCH 34.8 pg (25.0-35.0) 02/03/17 07:00 MCHC 33.2 g/dl (31.0-37.0) 02/03/17 07:00 RDW 15.5 % (11.5-14.5) H 02/03/17 07:00 Plt Count 148 10^3/uL (120.0-450.0) 02/03/17 07:00 MPV 10.6 fl (7.0-11.0) 02/03/17 07:00 Gran % 74.3 % (50.0-68.0) H 02/03/17 07:00 Lymph % (Auto) 20.1 % (22.0-35.0) L 02/03/17 07:00 Knox % (Auto) 4.0 % (1.0-6.0) 02/03/17 07:00 Eos % (Auto) 1.3 % (1.5-5.0) L 02/03/17 07:00 Baso % (Auto) 0.3 % (0.0-3.0) 02/03/17 07:00 Gran # 5.07 (1.4-6.5) 02/03/17 07:00 Lymph # 1.4 (1.2-3.4) 02/03/17 07:00 Knox # 0.3 (0.1-0.6) 02/03/17 07:00 Eos # 0.1 (0.0-0.7) 02/03/17 07:00 Baso # 0.02 K/mm3 (0.0-2.0) 02/03/17 07:00 PT 12.1 Seconds (9.9-11.8) H 02/01/17 03:35 INR 1.12 (0.93-1.08) H 02/01/17 03:35 APTT 25.6 Seconds (23.7-30.8) 02/01/17 03:35 Sodium 135 mmol/L (132-148) 02/03/17 07:00 Potassium 3.8 mmol/L (3.6-5.0) 02/03/17 07:00 Chloride 99 mmol/L (95-110) 02/03/17 07:00 Carbon Dioxide 28 mmol/L (21-33) 02/03/17 07:00 Anion Gap 12 (10-20) 02/03/17 07:00 BUN 3 mg/dL (7-21) L 02/03/17 07:00 Creatinine 0.6 mg/dL (0.5-1.4) 02/03/17 07:00 Est GFR ( Amer) > 60 02/03/17 07:00 Est GFR (Non-Af Amer) > 60 02/03/17 07:00 Random Glucose 99 mg/dL (70-110) 02/03/17 07:00 Calcium 9.3 mg/dL (8.4-10.5) 02/03/17 07:00 Phosphorus 3.4 mg/dL (2.5-4.5) 02/01/17 09:00 Magnesium 1.8 mg/dL (1.7-2.2) 02/02/17 07:00 Total Bilirubin 3.1 mg/dL (0.2-1.3) H 02/03/17 07:00 AST 160 U/L (15-59) H 02/03/17 07:00 ALT 120 U/L (7-56) H 02/03/17 07:00 Alkaline Phosphatase 344 U/L (38-133) H 02/03/17 07:00 Total Protein 7.6 g/dL (5.8-8.3) 02/03/17 07:00 Albumin 3.8 g/dL (3.0-4.8) 02/03/17 07:00 Globulin 3.8 gm/dL 02/03/17 07:00 Albumin/Globulin Ratio 1.0 (1.1-1.8) L 02/03/17 07:00 Lipase 45 U/L (23-300) 02/01/17 03:35 Acetaminophen < 10.0 ug/ml (10.0-20.0) L 02/01/17 09:00 Alcohol, Quantitative 162 mg/dL (0-10) H 02/01/17 09:00 Hepatitis A IgM Ab Negative (NEGATIVE) 02/01/17 09:00 Hep Bs Antigen Negative (NEGATIVE) 02/01/17 09:00 Hep B Core IgM Ab Negative (NEGATIVE) 02/01/17 09:00 Hepatitis C Antibody Negative (NEGATIVE) 02/01/17 09:00 - Hospital Course Hospital Course: 41 year old male with a pertinent past medical history of alcoholism and chronic pancreatitis presented with a complaint of upper right quadrant and epigastric pain. Liver markers were ordered and found to be elevated. A CT showed fatty infiltration of enlarged liver, findings consistent with chronic pancreatitis. An abdominal US showed hepatomegaly/hepatic steatosis , cholelithiasis with no evidence of cholecystis. A hepatitis panel was negative. Gastroenterology was consulted and recommended that the patient be put on lactate ringers for fluid replenishment, as opposed to normal saline, and that pain should be controlled with morphine. Patient was initially made NPO but diet was advanced as tolerated. After having initially agreed to stay until the morning of 02/04, patient left the hospital without allowing time for a doctor to be notified. Nursing staff removed his IV line and patient left the hospital. - Date & Time of H&P Date of H&P: 02/01/17 Time of H&P: 06:52 Discharge Exam - Head Exam Head Exam: NORMAL INSPECTION - Eye Exam Eye Exam: EOMI, Normal appearance - ENT Exam ENT Exam: Mucous Membranes Moist, Normal Exam - Neck Exam Neck exam: Full Rom - Respiratory Exam Respiratory Exam: NORMAL BREATHING PATTERN, UNREMARKABLE. absent: Rales, Rhonchi, Wheezes, Respiratory Distress - Cardiovascular Exam Cardiovascular Exam: REGULAR RHYTHM, RRR, +S1, +S2 - GI/Abdominal Exam GI & Abdominal Exam: Normal Bowel Sounds, Unremarkable. absent: Distended, Firm , Guarding, Tenderness - Extremities Exam Additional comments: no calf tenderness or pedal edema bilaterally - Neurological Exam Neurological exam: Alert, Normal Gait, Oriented x3 - Psychiatric Exam Psychiatric exam: Normal Affect, Normal Mood - Skin Skin Exam: Dry, Intact, Normal Color, Warm Discharge Plan - Follow Up Plan Condition: FAIR Disposition: AGAINST MEDICAL ADVICE <Erick Swanson - Last Filed: 02/05/17 12:13> Provider - Provider Date of Admission: 02/01/17 05:13 Attending physician: Erick Swanson MD Hospital Course - Lab Results Lab Results: Most Recent Lab Values WBC 6.8 10^3/ul (4.5-11.0) 02/03/17 07:00 RBC 3.48 10^6/uL (3.5-6.1) L 02/03/17 07:00 Hgb 12.1 gm/dL (14.0-18.0) L 02/03/17 07:00 Hct 36.5 % (42.0-52.0) L 02/03/17 07:00 MCV 104.9 fL (80.0-105.0) 02/03/17 07:00 MCH 34.8 pg (25.0-35.0) 02/03/17 07:00 MCHC 33.2 g/dl (31.0-37.0) 02/03/17 07:00 RDW 15.5 % (11.5-14.5) H 02/03/17 07:00 Plt Count 148 10^3/uL (120.0-450.0) 02/03/17 07:00 MPV 10.6 fl (7.0-11.0) 02/03/17 07:00 Gran % 74.3 % (50.0-68.0) H 02/03/17 07:00 Lymph % (Auto) 20.1 % (22.0-35.0) L 02/03/17 07:00 Knox % (Auto) 4.0 % (1.0-6.0) 02/03/17 07:00 Eos % (Auto) 1.3 % (1.5-5.0) L 02/03/17 07:00 Baso % (Auto) 0.3 % (0.0-3.0) 02/03/17 07:00 Gran # 5.07 (1.4-6.5) 02/03/17 07:00 Lymph # 1.4 (1.2-3.4) 02/03/17 07:00 Knox # 0.3 (0.1-0.6) 02/03/17 07:00 Eos # 0.1 (0.0-0.7) 02/03/17 07:00 Baso # 0.02 K/mm3 (0.0-2.0) 02/03/17 07:00 PT 12.1 Seconds (9.9-11.8) H 02/01/17 03:35 INR 1.12 (0.93-1.08) H 02/01/17 03:35 APTT 25.6 Seconds (23.7-30.8) 02/01/17 03:35 Sodium 135 mmol/L (132-148) 02/03/17 07:00 Potassium 3.8 mmol/L (3.6-5.0) 02/03/17 07:00 Chloride 99 mmol/L (95-110) 02/03/17 07:00 Carbon Dioxide 28 mmol/L (21-33) 02/03/17 07:00 Anion Gap 12 (10-20) 02/03/17 07:00 BUN 3 mg/dL (7-21) L 02/03/17 07:00 Creatinine 0.6 mg/dL (0.5-1.4) 02/03/17 07:00 Est GFR ( Amer) > 60 02/03/17 07:00 Est GFR (Non-Af Amer) > 60 02/03/17 07:00 Random Glucose 99 mg/dL (70-110) 02/03/17 07:00 Calcium 9.3 mg/dL (8.4-10.5) 02/03/17 07:00 Phosphorus 3.4 mg/dL (2.5-4.5) 02/01/17 09:00 Magnesium 1.8 mg/dL (1.7-2.2) 02/02/17 07:00 Total Bilirubin 3.1 mg/dL (0.2-1.3) H 02/03/17 07:00 AST 160 U/L (15-59) H 02/03/17 07:00 ALT 120 U/L (7-56) H 02/03/17 07:00 Alkaline Phosphatase 344 U/L (38-133) H 02/03/17 07:00 Total Protein 7.6 g/dL (5.8-8.3) 02/03/17 07:00 Albumin 3.8 g/dL (3.0-4.8) 02/03/17 07:00 Globulin 3.8 gm/dL 02/03/17 07:00 Albumin/Globulin Ratio 1.0 (1.1-1.8) L 02/03/17 07:00 Lipase 45 U/L (23-300) 02/01/17 03:35 Acetaminophen < 10.0 ug/ml (10.0-20.0) L 02/01/17 09:00 Alcohol, Quantitative 162 mg/dL (0-10) H 02/01/17 09:00 Hepatitis A IgM Ab Negative (NEGATIVE) 02/01/17 09:00 Hep Bs Antigen Negative (NEGATIVE) 02/01/17 09:00 Hep B Core IgM Ab Negative (NEGATIVE) 02/01/17 09:00 Hepatitis C Antibody Negative (NEGATIVE) 02/01/17 09:00 Attending/Attestation - Attestation I have personally seen and examined this patient.: Yes I have fully participated in the care of the patient.: Yes I have reviewed all pertinent clinical information, including history, physical exam and plan: Yes Notes (Text): 02/05/17 12:09 Attending note; Patient seen and examined with resident. Patient is a 41-year-old with a history of long-standing alcohol abuse, chronic pancreatitis is admitted with acute alcohol intoxication and abdominal discomfort. Getting treated with IV fluids, multivitamin, thiamine, folic acid. Treated with IV Ativan. Acute on chronic pancreatitis; GI evaluation appreciated. Started on clear liquid diet. Elevated LFTs; secondary to alcohol intoxication. Improving significantly. Hepatitis profile is negative. Hypertension; secondary to alcohol withdrawal. Continue Norvasc and clonidine. Patient does not take any medications at home. Patient denies any anxiety, depression. Refused psychiatric evaluation. Does not have a PMD. He is advised to call insurance to get PMD for outpatient lab work. Complete alcohol cessation is strongly advised. Patient left the hospital before seen by the PMD. Diagnosis; alcohol abuse Chronic pancreatitis Elevated LFTs Hypertension Noncompliance with follow up AMA 02/05/17 12:12
== END 2017-02-03 18:30 | disposition left against medical advice (07) ==
LOC: ED 02:00 → ERH 05:13 → 3RNO 06:21
PROVIDERS: ADMIT Hospitalist; ATTEND Internal Medicine
DX: K85.90 Acute pancreatitis without necrosis or infection, unspecified (principal); K86.1 Other chronic pancreatitis; F10.239 Alcohol dependence with withdrawal, unspecified; I10 Essential (primary) hypertension; E87.6 Hypokalemia; K21.9 Gastro-esophageal reflux disease without esophagitis; D64.9 Anemia, unspecified; Z91.19 Patient's noncompliance with other medical treatment and regimen; Y90.6 Blood alcohol level of 120-199 mg/100 ml; K80.20 Calculus of gallbladder without cholecystitis without obstruction; K76.0 Fatty (change of) liver, not elsewhere classified
CPT/HCPCS: 36415; 74177; 76700; 80053; 80074; 80320; 80329; 83690; 83735; 84100; 85025; 85610; 85730; 96365; 96367; 96375; 96376; 99284; C9113; G0378; J0360; J1170; J2060; J2270; J2405; J3411; J3475; J7040; J7070; J7120; Q9967

== ENCOUNTER 2017-02-08 20:57 | Emergency (ER) | payer MEDICAID ==
[2017-02-08 21:52] VITALS: BMI 22.2
--- NOTE | 2017-02-08 22:19 | ED PDOC ---
Arrival/HPI - General Chief Complaint: Finger,Hand,&Wrist Time Seen by Provider: 02/08/17 22:11 Historian: Patient - History of Present Illness Narrative History of Present Illness (Text): 02/08/17 22:17 41 y/o male, no pmh, psychiatric history including alcohol abuse, nkda, c/o bilateral wrist pain with no fall or trauma. Aching pain, aggravated by movement, no numbness or tingling, no palpitation, no rash, no night sweat, no other medical or psychological complaints. Past Medical History - Provider Review Nursing Documentation Reviewed: Yes - Infectious Disease Hx of Infectious Diseases: None - Tetanus Immunization Tetanus Immunization: Unknown - Past Medical History Past Medical History: No Previous - Cardiac Hx Cardiac Disorders: No - Pulmonary Hx Respiratory Disorders: No Hx Tuberculosis: No - Neurological Hx Neurological Disorder: No Hx Seizures: No - HEENT Hx HEENT Disorder: No - Renal Hx Renal Disorder: No - Endocrine/Metabolic Hx Endocrine Disorders: No - Hematological/Oncological Hx Blood Disorders: No - Integumentary Hx Dermatological Disorder: No - Musculoskeletal/Rheumatological Hx Musculoskeletal Disorders: No Hx Falls: No - Gastrointestinal Hx Gastrointestinal Disorders: Yes Hx Pancreatitis: Yes - Genitourinary/Gynecological Hx Genitourinary Disorders: No Hx Sexually Transmitted Diseases: No - Psychiatric Hx Psychophysiologic Disorder: No Hx Substance Use: Yes - Past Surgical History Past Surgical History: No Previous - Surgical History Hx Amputation: No Hx Appendectomy: No Hx Cardiac Catheterization: No Hx Cholecystectomy: No Hx Coronary Stent: No Hx Gastric Bypass Surgery: No Hx Hysterectomy: No Hx Joint Replacement: No Hx Kidney Transplant: No Hx Liver Transplant: No Hx Mastectomy: No Hx Musculoskeletal Surgery: No Hx Open Heart Surgery: No Hx Orthopedic Surgery: No Hx Splenectomy: No Hx Valve Replacement: No - Anesthesia Hx Anesthesia: No Hx Anesthesia Reactions: No Hx Malignant Hyperthermia: No - Suicidal Assessment Feels Threatened In Home Enviroment: No Family/Social History - Physician Review Nursing Documentation Reviewed: Yes Family/Social History: Unknown Family HX Smoking Status: Current Some Days Smoker Hx Alcohol Use: Yes Amount per day: 24 Hx Substance Use: Yes Allergies/Home Meds Allergies/Adverse Reactions: Allergies No Known Allergies Allergy (Verified 02/08/17 21:52) Review of Systems - Review of Systems Constitutional: absent: Fatigue, Fevers Eyes: absent: Vision Changes ENT: absent: Hearing Changes Respiratory: absent: SOB, Cough Cardiovascular: absent: Chest Pain Gastrointestinal: absent: Abdominal Pain, Nausea, Vomiting Musculoskeletal: Arthralgias. absent: Back Pain, Neck Pain, Joint Swelling, Myalgias Physical Exam Vital Signs Temp Pulse Resp BP Pulse Ox 02/08/17 23:57 98.4 F 64 17 132/88 98 02/08/17 21:55 98.6 F 86 16 108/67 96 Temperature: Afebrile Blood Pressure: Normal Pulse: Regular Respiratory Rate: Normal Appearance: Positive for: Well-Appearing, Non-Toxic, Comfortable Pain Distress: Moderate Mental Status: Positive for: Alert and Oriented X 3 - Systems Exam Head: Present: Atraumatic, Normocephalic Pupils: Present: PERRL Extroacular Muscles: Present: EOMI Conjunctiva: Present: Normal Mouth: Present: Moist Mucous Membranes Neck: Present: Normal Range of Motion Respiratory/Chest: Present: Clear to Auscultation, Good Air Exchange. No: Respiratory Distress, Accessory Muscle Use Cardiovascular: Present: Regular Rate and Rhythm, Normal S1, S2. No: Murmurs Abdomen: Present: Normal Bowel Sounds. No: Tenderness, Distention, Peritoneal Signs Back: Present: Normal Inspection Upper Extremity: Present: Normal Inspection, Other (Bilateral Upper extremities : negative tinel and phalen sign, no scaphoid tenderness, FROM without limtiation, sensation intact motor 5/5, +radial pulse, capillary refill< 2 seconds, neurovascular intact. ). No: Cyanosis, Edema Lower Extremity: Present: Normal Inspection. No: Edema Neurological: Present: GCS=15, CN II-XII Intact, Speech Normal, Motor Func Grossly Intact, Memory Normal Skin: Present: Warm, Dry, Normal Color. No: Rashes Psychiatric: Present: Alert, Oriented x 3, Normal Insight, Normal Concentration Medical Decision Making ED Course and Treatment: 02/08/17 22:18 -venuous doppler -motrin/pepcid -observe and reassess 02/09/17 00:33 -Bilateral upper extremities venuous doppler: as per preliminary report, no acute DVT -Pt. feels better, will discharge home. -Discharge home with ibuprofen, pepcid, bed rest, follow up with your own pmd and orthopedic within 2 days, return to the ER for any new or worsening signs or symptoms. - RAD Interpretation Radiology Orders: 02/08/17 22:15 DUPLEX UPPER EXTRM VEIN BILAT [US] Stat - Medication Orders Current Medication Orders: Discontinued Medications Famotidine (Pepcid) 20 mg PO STAT STA Stop: 02/08/17 22:16 Last Admin: 02/08/17 22:50 Dose: 20 mg Ibuprofen (Motrin Tab) 800 mg PO STAT STA Stop: 02/08/17 22:16 Last Admin: 02/08/17 22:50 Dose: 800 mg - PA / GAMING DIRECTOR / Resident Statement MD/DO has reviewed & agrees with the documentation as recorded. Disposition/Present on Arrival - Present on Arrival Any Indicators Present on Arrival: No History of DVT/PE: No History of Uncontrolled Diabetes: No Urinary Catheter: No History of Decub. Ulcer: No History Surgical Site Infection Following: None - Disposition Have Diagnosis and Disposition been Completed?: Yes Diagnosis: Tendinitis, Arthralgia Disposition: HOME/ ROUTINE Disposition Time: 22:19 Patient Plan: Discharge Condition: GOOD Additional Instructions: -Discharge home with ibuprofen, pepcid, bed rest, follow up with your own pmd and orthopedic within 2 days, return to the ER for any new or worsening signs or symptoms. Prescriptions: Famotidine [Pepcid] 20 mg PO BID PRN #14 tab PRN Reason: Other Ibuprofen [Motrin Tab] 600 mg PO QID PRN #24 tab PRN Reason: Other Referrals: Michael Garcia MD [Staff Provider] - Follow up with primary [facility] at [facility] [place] [Outside] - Follow up with primary Forms: WORK NOTE
[2017-02-08 23:58] VITALS: TEMP 98.4
[2017-02-09 01:18] VITALS: BP 120/75; PULSE 65; RESP 16; O2SAT 99
--- NOTE | 2017-02-09 13:04 | US ---
HISTORY: Arm pain and swelling. Evaluate for deep venous thrombosis. PHYSICIAN(S): Speedy Menchaca MD. FINDINGS: The visualized internal jugular veins are sonographically normal and compressible. No evidence of obstruction or thrombus this is seen. The visualized segments of the subclavian veins are patent with normal waveforms. No sonographic evidence of obstruction or thrombosis is seen. The visualized deep venous systems of both upper extremities proximally are sonographically normal and compressible. IMPRESSION: 1. No sonographic evidence for deep venous thrombosis in the visualized segments of both upper extremities.
== END 2017-02-09 01:19 | disposition home or self-care (01) ==
LOC: ED 20:57
DX: M77.9 Enthesopathy, unspecified (principal); M25.532 Pain in left wrist; M25.531 Pain in right wrist

== ENCOUNTER 2017-02-11 04:56 | Emergency (ER) | payer MEDICAID ==
[2017-02-11 05:05] VITALS: BMI 21.5
[2017-02-11] MEDS ORDERED: Sodium Chloride 0.9% 1,000 ML IV STA (05:05)
[2017-02-11 05:07] VITALS: TEMP 97.5
--- NOTE | 2017-02-11 05:07 | ED PDOC ---
Arrival/HPI - General Time Seen by Provider: 02/11/17 04:59 Historian: Patient - History of Present Illness Narrative History of Present Illness (Text): 02/11/17 05:05 Felix Glasgow is a 41 year old male, whose past medical history includes pancreatitis and alcohol abuse, who presents to the Emergency department complaining of abdominal pain. Patient states he has been experiencing epigastric pain for the past few days and denies any recent alcohol ingestion, nausea, or vomiting. Patient also denies any fever, chills, chest pain, shortness of breath, diarrhea, urinary symptoms, back pain, neck pain, headache , dizziness, or any other complaints. Time/Duration: < week (few days) Symptom Onset: Gradual Symptom Course: Unchanged Activities at Onset: Rest, Light Past Medical History - Provider Review Nursing Documentation Reviewed: Yes - Infectious Disease Hx of Infectious Diseases: None - Tetanus Immunization Tetanus Immunization: Unknown - Past Medical History Past Medical History: No Previous - Cardiac Hx Cardiac Disorders: No - Pulmonary Hx Respiratory Disorders: No Hx Tuberculosis: No - Neurological Hx Neurological Disorder: No Hx Seizures: No - HEENT Hx HEENT Disorder: No - Renal Hx Renal Disorder: No - Endocrine/Metabolic Hx Endocrine Disorders: No - Hematological/Oncological Hx Blood Disorders: No - Integumentary Hx Dermatological Disorder: No - Musculoskeletal/Rheumatological Hx Musculoskeletal Disorders: No Hx Falls: No - Gastrointestinal Hx Gastrointestinal Disorders: Yes Hx Pancreatitis: Yes - Genitourinary/Gynecological Hx Genitourinary Disorders: No Hx Sexually Transmitted Diseases: No - Psychiatric Hx Psychophysiologic Disorder: No Hx Substance Use: Yes - Past Surgical History Past Surgical History: No Previous - Surgical History Hx Amputation: No Hx Appendectomy: No Hx Cardiac Catheterization: No Hx Cholecystectomy: No Hx Coronary Stent: No Hx Gastric Bypass Surgery: No Hx Hysterectomy: No Hx Joint Replacement: No Hx Kidney Transplant: No Hx Liver Transplant: No Hx Mastectomy: No Hx Musculoskeletal Surgery: No Hx Open Heart Surgery: No Hx Orthopedic Surgery: No Hx Splenectomy: No Hx Valve Replacement: No - Anesthesia Hx Anesthesia: No Hx Anesthesia Reactions: No Hx Malignant Hyperthermia: No - Suicidal Assessment Feels Threatened In Home Enviroment: No Family/Social History - Physician Review Nursing Documentation Reviewed: Yes Family/Social History: Unknown Family HX Smoking Status: Current Some Days Smoker Hx Alcohol Use: Yes Amount per day: 24 Hx Substance Use: Yes Allergies/Home Meds Allergies/Adverse Reactions: Allergies No Known Allergies Allergy (Verified 02/08/17 21:52) Home Medications: Home Meds Medication Instructions Recorded Confirmed No Known Home Med 02/11/17 02/11/17 Review of Systems - Physician Review All systems were reviewed & negative as marked: Yes - Review of Systems Constitutional: Normal. absent: Fevers Eyes: Normal ENT: Normal Respiratory: Normal. absent: SOB, Cough Cardiovascular: Normal. absent: Chest Pain Gastrointestinal: Abdominal Pain. absent: Nausea, Vomiting Genitourinary Male: Normal. absent: Dysuria, Frequency, Hematuria, Urinary Output Changes Musculoskeletal: Normal. absent: Back Pain, Neck Pain Skin: Normal. absent: Rash Neurological: Normal. absent: Headache, Dizziness Endocrine: Normal Hemo/Lymphatic: Normal Psychiatric: Normal Physical Exam Vital Signs Reviewed: Yes Vital Signs Temp Pulse Resp BP Pulse Ox 02/11/17 05:06 97.5 F L 79 17 151/97 H 99 02/11/17 05:05 97.8 F 79 17 151/97 H 99 Temperature: Afebrile Blood Pressure: Normal Pulse: Regular Respiratory Rate: Normal Appearance: Positive for: Well-Appearing, Non-Toxic, Comfortable Pain Distress: None Mental Status: Positive for: Alert and Oriented X 3 - Systems Exam Head: Present: Atraumatic, Normocephalic Pupils: Present: PERRL Extroacular Muscles: Present: EOMI Conjunctiva: Present: Normal Mouth: Present: Moist Mucous Membranes Neck: Present: Normal Range of Motion Respiratory/Chest: Present: Clear to Auscultation, Good Air Exchange. No: Respiratory Distress, Accessory Muscle Use Cardiovascular: Present: Regular Rate and Rhythm, Normal S1, S2. No: Murmurs Abdomen: Present: Tenderness (Mild epigastric tenderness), Normal Bowel Sounds. No: Distention, Peritoneal Signs Back: Present: Normal Inspection Upper Extremity: Present: Normal Inspection. No: Cyanosis, Edema Lower Extremity: Present: Normal Inspection. No: Edema Neurological: Present: GCS=15, CN II-XII Intact, Speech Normal Skin: Present: Warm, Dry, Normal Color. No: Rashes Psychiatric: Present: Alert, Oriented x 3, Normal Insight, Normal Concentration Medical Decision Making ED Course and Treatment: 02/11/17 05:05 Impression: 41 year old male complaining of epigastric pain for the past few days. Plan: -- CT Abdomen and Pelvis w/o contrast -- Labs, lipase -- IV fluids -- Protonix -- Reassess and disposition Prior Visits: Notes and results from previous visits were reviewed. On 02/08/2017, pt was seen in the Emergency department for bilateral wrist pain. Pt was d/c home. Progress Notes: 02/11/17 06:15 Reviewed radiology, CT Abdomen and Pelvis shows: Limitations: Lack of intravenous contrast. Motion artifact - mild. Lower thorax: No acute findings. ABDOMEN: Liver: Unremarkable. Gallbladder and bile ducts: No calcified stones. No ductal dilation. Pancreas: Multiple calcifications within pancreas. No ductal dilation. Spleen: No splenomegaly. Adrenals: No mass. Kidneys and ureters: No obstructing stones. No hydronephrosis. Stomach and bowel: No definite mural thickening. No obstruction. Appendix: No findings to suggest acute appendicitis. PELVIS: Bladder: Unremarkable. No stones. Reproductive: Unremarkable as visualized. ABDOMEN and PELVIS: Intraperitoneal space: No significant fluid collection. No free air. Bones/joints: No acute fracture. Soft tissues: Unremarkable. Vasculature: Unremarkable. No aneurysm. Lymph nodes: No pathologically enlarged lymph nodes. IMPRESSION: 1. Chronic pancreatitis. 2. Incidental/non-acute findings are described. - Lab Interpretations Lab Results: 02/11/17 05:36 02/11/17 05:36 Lab Results 02/11/17 05:36: Sodium 146, Potassium 4.4, Chloride 106, Carbon Dioxide 29, Anion Gap 15, BUN 9, Creatinine 0.6, Est GFR ( Amer) > 60, Est GFR (Non- Af Amer) > 60, Random Glucose 96, Calcium 8.7, Total Bilirubin 0.5, AST 60 H, ALT 37, Alkaline Phosphatase 203 H, Total Protein 7.5, Albumin 3.8, Globulin 3.7 , Albumin/Globulin Ratio 1.0 L, Lipase 12 L 02/11/17 05:36: WBC 5.0 D, RBC 3.32 L, Hgb 11.5 L, Hct 35.3 L, MCV 106.3 H, MCH 34.6, MCHC 32.6, RDW 15.8 H, Plt Count 234, MPV 9.3, Neutrophils % (Manual) Pending, Lymphocytes % (Manual) Pending, Monocytes % (Manual) Pending I have reviewed the lab results: Yes - RAD Interpretation Radiology Orders: 02/11/17 05:05 ABD & PELVIS W/O PO OR IV CONT [CT] Stat Tour Counselor: Radiologist - Medication Orders Current Medication Orders: Discontinued Medications Sodium Chloride (Sodium Chloride 0.9%) 1,000 mls @ 1,000 mls/hr IV .Q1H STA Stop: 02/11/17 06:04 Last Admin: 02/11/17 05:38 Dose: 1,000 mls/hr Pantoprazole Sodium (Protonix Inj) 40 mg IVP STAT STA Stop: 02/11/17 05:06 Last Admin: 02/11/17 05:38 Dose: 40 mg - Scribe Statement The provider has reviewed the documentation as recorded by the Becca Zhou Provider Scribe Attestation: All medical record entries made by the Becca were at my direction and personally dictated by me. I have reviewed the chart and agree that the record accurately reflects my personal performance of the history, physical exam, medical decision making, and the department course for this patient. I have also personally directed, reviewed, and agree with the discharge instructions and disposition. Disposition/Present on Arrival - Present on Arrival Any Indicators Present on Arrival: No History of DVT/PE: No History of Uncontrolled Diabetes: No Urinary Catheter: No History Surgical Site Infection Following: None - Disposition Have Diagnosis and Disposition been Completed?: Yes Diagnosis: Chronic pancreatitis Disposition: HOME/ ROUTINE Disposition Time: 06:39 Condition: GOOD Discharge Instructions (ExitCare): Pancreatitis (DC)
[2017-02-11 05:51] LABS: HEMOGLOBIN 11.5 gm/dL (14.0-18.0); MEAN CELL VOLUME 106.3 fL (80.0-105.0); MEAN CORPUSCULAR HEMOGLOBIN 34.6 pg (25.0-35.0); MEAN CORPUSCULAR HGB CONC 32.6 g/dl (31.0-37.0); MEAN PLATELET VOLUME 9.3 fl (7.0-11.0); PLATELET COUNT 234 10^3/uL (120.0-450.0); RBC 3.32 10^6/uL (3.5-6.1); RED CELL DISTRIBUTION WIDTH 15.8 % (11.5-14.5)
[2017-02-11 06:02] LABS: ALBUMIN 3.8 g/dL (3.0-4.8); ALT/SGPT 37 U/L (7-56); AST/SGOT 60 U/L (15-59); BLOOD UREA NITROGEN 9 mg/dL (7-21); CALCIUM 8.7 mg/dL (8.4-10.5); GFR AFRICAN-AMERICAN > 60; GFR NON-AFRICAN AMERICAN > 60; LIPASE 12 U/L (23-300)
--- NOTE | 2017-02-11 06:12 | CT ---
EXAM: CT Abdomen and Pelvis Without Intravenous Contrast CLINICAL HISTORY: 41 years old, male; Pain; Abdominal pain; Additional info: Abd pain TECHNIQUE: Axial computed tomography images of the abdomen and pelvis without intravenous contrast. This CT exam was performed using one or more of the following dose reduction techniques: automated exposure control, adjustment of the mA and/or kV according to patient size, and/or use of iterative reconstruction technique. Coronal and sagittal reformatted images were created and reviewed. COMPARISON: CT - ABD PELVIS IV CONTRA 02/01/2017 4:33:45 AM FINDINGS: Limitations: Lack of intravenous contrast. Motion artifact - mild. Lower thorax: No acute findings. ABDOMEN: Liver: Unremarkable. Gallbladder and bile ducts: No calcified stones. No ductal dilation. Pancreas: Multiple calcifications within pancreas. No ductal dilation. Spleen: No splenomegaly. Adrenals: No mass. Kidneys and ureters: No obstructing stones. No hydronephrosis. Stomach and bowel: No definite mural thickening. No obstruction. Appendix: No findings to suggest acute appendicitis. PELVIS: Bladder: Unremarkable. No stones. Reproductive: Unremarkable as visualized. ABDOMEN and PELVIS: Intraperitoneal space: No significant fluid collection. No free air. Bones/joints: No acute fracture. Soft tissues: Unremarkable. Vasculature: Unremarkable. No aneurysm. Lymph nodes: No pathologically enlarged lymph nodes. IMPRESSION: 1. Chronic pancreatitis. 2. Incidental/non-acute findings are described above.
[2017-02-11 06:40] LABS: LYMPHOCYTE 52 % (22.0-35.0); NEUTROPHIL 36 % (50.0-70.0)
[2017-02-11 06:41] LABS: BASOPHIL 1 % (0.0-1.0); EOSINOPHIL 3 % (0.0-3.0); MONOCYTE 7 % (1.0-6.0); PLATELET ESTIMATE NORMAL (NORMAL)
[2017-02-11 06:55] VITALS: BP 140/86; PULSE 84; RESP 16; O2SAT 98
== END 2017-02-11 06:57 | disposition home or self-care (01) ==
LOC: ED 04:56
DX: K86.1 Other chronic pancreatitis (principal)
CPT/HCPCS: 74176; 80053; 83690; 85025; 96374; 99283; C9113; J7040

== ENCOUNTER 2017-03-12 21:01 | Inpatient (IN) | payer MEDICAID ==
[2017-03-12 21:01] VITALS: BMI 21.5
[2017-03-12] MEDS ORDERED: Sodium Chloride 0.9% 1,000 ML IV STA (21:36)
[2017-03-12 22:29] LABS: BASO # 0.01 K/mm3 (0.0-2.0); BASO % 0.3 % (0.0-3.0); EOS % 0.3 % (1.5-5.0); GRAN # 1.81 (1.4-6.5); HEMATOCRIT 30.6 % (42.0-52.0); LYMPH # 1.2 (1.2-3.4); LYMPH % 36.8 % (22.0-35.0); MEAN CELL VOLUME 104.4 fl (80.0-105.0); MEAN CORPUSCULAR HEMOGLOBIN 35.5 pg (25.0-35.0); MEAN PLATELET VOLUME 10.3 fl (7.0-11.0); MONO # 0.3 (0.1-0.6); MONO % 7.6 % (1.0-6.0); RED CELL DISTRIBUTION WIDTH 14.8 % (11.5-14.5); WHITE BLOOD COUNT 3.3 10^3/ul (4.5-11.0)
--- NOTE | 2017-03-12 22:32 | ED PDOC ---
Arrival/HPI - General Historian: Patient - History of Present Illness Time/Duration: Other (Few days) Symptom Onset: Gradual Symptom Course: Unchanged Activities at Onset: Light Context: Home <Estrella Rubio - Last Filed: 03/13/17 01:19> <WilmanBruno - Last Filed: 03/13/17 19:30> - General Chief Complaint: Abdominal Pain Time Seen by Provider: 03/12/17 21:36 - History of Present Illness Narrative History of Present Illness (Text): 03/12/17 21:35 41 year old male, whose past medical history includes pancreatitis and alcohol abuse, who presents to the Emergency department complaining of diffuse abdominal pain, worse over the past few dalys. Patient states pain radiates to bilateral flanks but denies any urinary symptoms. Patient denies any fever, chills, chest pain, shortness of breath, urinary symptoms, headache, dizziness, or any other complaints. Patient also complaining of nausea and vomiting. Patient states he has not taken pain medication at home. Patient admits to drinking alcohol within the past few days. (Estrella Rubio) Past Medical History - Provider Review Nursing Documentation Reviewed: Yes - Infectious Disease Hx of Infectious Diseases: None - Tetanus Immunization Tetanus Immunization: Unknown - Past Medical History Past Medical History: No Previous - Cardiac Hx Cardiac Disorders: No - Pulmonary Hx Respiratory Disorders: No Hx Tuberculosis: No - Neurological Hx Neurological Disorder: No Hx Seizures: No - HEENT Hx HEENT Disorder: No - Renal Hx Renal Disorder: No - Endocrine/Metabolic Hx Endocrine Disorders: No - Hematological/Oncological Hx Blood Disorders: No - Integumentary Hx Dermatological Disorder: No - Musculoskeletal/Rheumatological Hx Musculoskeletal Disorders: No Hx Falls: No - Gastrointestinal Hx Gastrointestinal Disorders: Yes Hx Pancreatitis: Yes - Genitourinary/Gynecological Hx Genitourinary Disorders: No Hx Sexually Transmitted Diseases: No - Psychiatric Hx Psychophysiologic Disorder: No Hx Substance Use: Yes - Past Surgical History Past Surgical History: No Previous - Surgical History Hx Amputation: No Hx Appendectomy: No Hx Cardiac Catheterization: No Hx Cholecystectomy: No Hx Coronary Stent: No Hx Gastric Bypass Surgery: No Hx Hysterectomy: No Hx Joint Replacement: No Hx Kidney Transplant: No Hx Liver Transplant: No Hx Mastectomy: No Hx Musculoskeletal Surgery: No Hx Open Heart Surgery: No Hx Orthopedic Surgery: No Hx Splenectomy: No Hx Valve Replacement: No - Anesthesia Hx Anesthesia: No Hx Anesthesia Reactions: No - Suicidal Assessment Feels Threatened In Home Enviroment: No <Estrella Rubio - Last Filed: 03/13/17 01:19> Family/Social History - Physician Review Nursing Documentation Reviewed: Yes Family/Social History: Unknown Family HX Smoking Status: Current Some Days Smoker Hx Alcohol Use: Yes Frequency of alcohol use: Daily Amount per day: 24 Hx Substance Use: Yes <Estrella Rubio Walter - Last Filed: 03/13/17 01:19> Allergies/Home Meds <Estrella Rubio Walter - Last Filed: 03/13/17 01:19> <Bruno Villarreal - Last Filed: 03/13/17 19:30> Allergies/Adverse Reactions: Allergies No Known Allergies Allergy (Verified 03/12/17 21:13) Home Medications: Home Meds Medication Instructions Recorded Confirmed No Known Home Med 02/11/17 03/12/17 Review of Systems - Physician Review All systems were reviewed & negative as marked: Yes - Review of Systems Constitutional: Normal. absent: Fevers Eyes: Normal ENT: Normal Respiratory: Normal. absent: SOB, Cough Cardiovascular: Normal Gastrointestinal: Abdominal Pain, Nausea, Vomiting Genitourinary Male: Normal. absent: Dysuria, Frequency, Hematuria, Urinary Output Changes Skin: Normal Neurological: Normal Endocrine: Normal Hemo/Lymphatic: Normal Psychiatric: Normal <Estrella Rubio Walter - Last Filed: 03/13/17 01:19> Physical Exam Vital Signs Reviewed: Yes Temperature: Afebrile Blood Pressure: Hypertensive Pulse: Regular Respiratory Rate: Normal Appearance: Positive for: Well-Appearing, Non-Toxic, Comfortable Pain Distress: None Mental Status: Positive for: Alert and Oriented X 3 - Systems Exam Head: Present: Atraumatic, Normocephalic Pupils: Present: PERRL Extroacular Muscles: Present: EOMI Conjunctiva: Present: Normal Mouth: Present: Moist Mucous Membranes Neck: Present: Normal Range of Motion. No: Meningeal Signs, MIDLINE TENDERNESS , Paraspinal Tenderness Respiratory/Chest: Present: Clear to Auscultation, Good Air Exchange. No: Respiratory Distress, Accessory Muscle Use Cardiovascular: Present: Regular Rate and Rhythm, Normal S1, S2. No: Murmurs Abdomen: Present: Tenderness (Diffuse abdominal tenderness greatest in lower abdomen. + LUQ tenderness), Normal Bowel Sounds. No: Distention, Peritoneal Signs Back: Present: Normal Inspection. No: CVA Tenderness, Midline Tenderness, Paraspinal Tenderness, Other (No flank tenderness) Upper Extremity: Present: Normal Inspection. No: Cyanosis, Edema Lower Extremity: Present: Normal Inspection. No: Edema Neurological: Present: GCS=15, Speech Normal Skin: Present: Warm, Dry, Normal Color. No: Rashes Psychiatric: Present: Alert, Oriented x 3 <Estrella Rubio - Last Filed: 03/13/17 01:19> Medical Decision Making <Estrella Rubio - Last Filed: 03/13/17 01:19> <Bruno Villarreal - Last Filed: 03/13/17 19:30> ED Course and Treatment: 03/12/17 21:35 Patient is nontoxic well appearing presenting with lower abdominal pain. CBC wbc; 3.3, platelets; 67 CMP K2.7 elevated lfts Lipase wnl Urinalysis: no leukocytes CAT scan FINDINGS: Lower thorax: The bilateral lung bases are clear. ABDOMEN: Liver: No acute findings. Gallbladder and bile ducts: The gallbladder is decompressed. No calcified stones. No significant intra- or extrahepatic biliary ductal dilation. Pancreas: Enhances homogeneously. No ductal dilation. No discrete mass. Multiple bulky calcifications are identified. Spleen: No acute findings. Adrenals: No acute findings. Kidneys and ureters: No acute findings. No hydronephrosis or renal calculi. No discrete solid mass. PELVIS: Bladder: No acute findings. Reproductive: No acute findings. Appendix: The appendix is not definitively visualized, however no pericecal inflammatory change is identified to suggest the presence of acute appendicitis. ABDOMEN and PELVIS: Stomach and bowel: No obstruction. Mural thickening within the rectosigmoid colon, with trace surrounding inflammatory change. Peritoneum: As above. Lymph nodes: No pathologically enlarged lymph nodes. Vasculature: Unremarkable. Bones: No acute fracture. IMPRESSION: Findings within the rectosigmoid colon suggesting colitis. Additional findings of chronic pancreatitis are again identified. patient given a K rider and 40 of potassium by mouth rocephin and flagyl given IV. case discussed with dr. villarreal; case discussed with dr. valenzuela; accepts observational status admission to [facility] for hypokalemia and colitis. Impression: hypokalemia, colitis admit observational status to the [facility] dr. be (Estrella Rubio) - Lab Interpretations Lab Results: 03/12/17 22:00 03/12/17 22:00 Lab Results 03/13/17 00:30: Urine Color Dark yellow, Urine Appearance Sl cloudy, Urine pH 6.0, Ur Specific [place] >= 1.030, Urine Protein 100 H, Urine Glucose (UA) Negative, Urine Ketones 15 H, Urine Blood Negative, Urine Nitrate Negative, Urine Bilirubin Small H, Urine Urobilinogen 1.0 H, Ur Leukocyte Esterase Negative, Urine RBC 0 - 2, Urine WBC 0 - 2, Ur Epithelial Cells 3 - 4, Urine Bacteria Rare 03/12/17 22:00: Alcohol, Quantitative 72 H 03/12/17 22:00: Magnesium 1.5 L 03/12/17 22:00: WBC 3.3 L D, RBC 2.93 L, Hgb 10.4 L, Hct 30.6 L, MCV 104.4, MCH 35.5 H, MCHC 34.0, RDW 14.8 H, Plt Count 67 L, MPV 10.3, Gran % 55.0, Lymph % ( Auto) 36.8 H, Douglas % (Auto) 7.6 H, Eos % (Auto) 0.3 L, Baso % (Auto) 0.3, Gran # 1.81, Lymph # 1.2, Douglas # 0.3, Eos # 0.0, Baso # 0.01 03/12/17 22:00: Sodium 139, Potassium 2.7 L* D, Chloride 99, Carbon Dioxide 29, Anion Gap 14, BUN < 2 L, Creatinine 0.6, Est GFR ( Amer) > 60, Est GFR ( Non-Af Amer) > 60, Random Glucose 89, Calcium 8.3 L, Total Bilirubin 1.0, AST 390 H, ALT 88 H, Alkaline Phosphatase 228 H, Total Protein 7.0, Albumin 3.7, Globulin 3.3, Albumin/Globulin Ratio 1.1, Lipase 12 L - RAD Interpretation Radiology Orders: 03/12/17 21:36 CHEST PORTABLE [RAD] Stat 03/12/17 23:10 ABD & PELVIS IV CONTRAST ONLY [CT] Stat - Medication Orders Current Medication Orders: Folic Acid (Folic Acid) 1 mg PO DAILY [facility] Last Admin: 03/13/17 10:30 Dose: 1 mg Potassium Chloride 40 meq/ (Sodium Chloride) 1,020 mls @ 110 mls/hr IV .Q9H17M [facility] Last Admin: 03/13/17 10:47 Dose: 110 mls/hr Metronidazole (Flagyl) 500 mg in 100 mls @ 100 mls/hr IVPB Q8 [facility] PRN Reason: Protocol Last Admin: 03/13/17 14:59 Dose: 100 mls/hr Ciprofloxacin (Cipro 400mg/200ml Dsw) 400 mg in 200 mls @ 133.3 mls/hr IVPB Q12 [facility] PRN Reason: Protocol Lorazepam (Ativan) 1 mg IVP Q6H [facility] PRN Reason: Protocol Last Admin: 03/13/17 10:41 Dose: 1 mg Lorazepam (Ativan) 1 mg IVP Q2H PRN; Protocol PRN Reason: Symptoms of alcohol withdrawl Morphine Sulfate (Morphine) 2 mg IVP Q4H PRN PRN Reason: Pain, severe (8-10) Last Admin: 03/13/17 15:07 Dose: 2 mg Multivitamins (Thera Tab) 1 tab PO DAILY [facility] Last Admin: 03/13/17 10:30 Dose: 1 tab Ondansetron HCl (Zofran Inj) 4 mg IVP Q4H PRN PRN Reason: Nausea/Vomiting Thiamine HCl (Vitamin B1 Tab) 100 mg PO DAILY [facility] Last Admin: 03/13/17 10:41 Dose: 100 mg Discontinued Medications Acetaminophen (Tylenol 325mg Tab) 650 mg PO STAT STA Stop: 03/13/17 05:31 Last Admin: 03/13/17 06:45 Dose: 650 mg Sodium Chloride (Sodium Chloride 0.9%) 1,000 mls @ 999 mls/hr IV .Q1H1M STA Stop: 03/12/17 22:36 Last Admin: 03/12/17 22:21 Dose: 999 mls/hr Potassium Chloride (Potassium Chloride 20 Meq/100 Ml) 20 meq in 100 mls @ 50 mls/hr IVPB ONCE ONE Stop: 03/13/17 00:44 Last Admin: 03/12/17 23:02 Dose: 50 mls/hr Metronidazole (Flagyl) 500 mg in 100 mls @ 100 mls/hr IVPB STAT STA PRN Reason: Protocol Stop: 03/13/17 02:26 Last Admin: 03/13/17 03:31 Dose: 100 mls/hr Ceftriaxone Sodium (Rocephin 1 Gram Ivpb) 1 gm in 100 mls @ 200 mls/hr IVPB STAT STA PRN Reason: Protocol Stop: 03/13/17 01:56 Last Admin: 03/13/17 02:49 Dose: 200 mls/hr Sodium Chloride (Sodium Chloride 0.9%) 1,000 mls @ 125 mls/hr IV .Q8H [facility] Last Admin: 03/13/17 04:39 Dose: 125 mls/hr Magnesium Sulfate 2 gm/ Sodium (Chloride) 104 mls @ 102 mls/hr IVPB ONCE ONE Stop: 03/13/17 04:55 Last Admin: 03/13/17 04:36 Dose: 102 mls/hr Ciprofloxacin (Cipro 400mg/200ml Dsw) 400 mg in 200 mls @ 133.3 mls/hr IVPB Q12 [facility] PRN Reason: Protocol Stop: 03/13/17 12:16 Last Admin: 03/13/17 13:02 Dose: 133.3 mls/hr Iohexol (Omnipaque 300 100 Ml) Confirm Administered Dose 100 ml IJ .STK-MED ONE Stop: 03/13/17 00:18 Last Admin: 03/13/17 05:14 Dose: Iohexol (Omnipaque 350 100 Ml) Confirm Administered Dose 350 mg .ROUTE .STK-MED ONE Stop: 03/13/17 00:19 Ketorolac Tromethamine (Toradol) 30 mg IVP STAT STA Stop: 03/13/17 04:54 Last Admin: 03/13/17 05:05 Dose: 30 mg Ondansetron HCl (Zofran Inj) 4 mg IVP STAT STA Stop: 03/12/17 21:37 Last Admin: 03/12/17 22:21 Dose: 4 mg Potassium Chloride (K-Dur 20 Meq Er Tab) 40 meq PO STAT STA Stop: 03/12/17 22:46 Last Admin: 03/12/17 23:02 Dose: 40 meq Potassium Chloride (K-Dur 20 Meq Er Tab) 40 meq PO Q3H [facility] Stop: 03/13/17 10:01 Last Admin: 03/13/17 10:30 Dose: 40 meq Thiamine HCl (Vitamin B1 Inj) 100 mg IV STAT STA Stop: 03/13/17 03:40 Last Admin: 03/13/17 04:46 Dose: 100 mg - Scribe Statement The provider has reviewed the documentation as recorded by the Scribe <Estrella Rubio - Last Filed: 03/13/17 01:19> - PA / [employer] / Resident Statement / has reviewed & agrees with the documentation as recorded. /DO has examined the patient and agrees with the treatment plan. <Bruno Villarreal - Last Filed: 03/13/17 19:30> - Scribe Statement Catherine Zhou Provider Scribe Attestation: All medical record entries made by the Scribe were at my direction and personally dictated by me. I have reviewed the chart and agree that the record accurately reflects my personal performance of the history, physical exam, medical decision making, and the department course for this patient. I have also personally directed, reviewed, and agree with the discharge instructions and disposition. (Estrella Rubio) Disposition/Present on Arrival - Present on Arrival Any Indicators Present on Arrival: No History of DVT/PE: No History of Uncontrolled Diabetes: No Urinary Catheter: No History of Decub. Ulcer: No History Surgical Site Infection Following: None - Disposition Have Diagnosis and Disposition been Completed?: Yes Disposition Time: 01:44 Patient Plan: Observation <Estrella Rubio - Last Filed: 03/13/17 01:19> <Bruno Villarreal - Last Filed: 03/13/17 19:30> - Disposition Diagnosis: Abdominal pain, Colitis, Hypokalemia Disposition: HOSPITALIZED Patient Problems: Current Active Problems Problem Status Onset Abdominal pain Acute Colitis Acute Hypokalemia Acute Condition: FAIR
[2017-03-12 22:38] LABS: ALB/GLOB RATIO 1.1 (1.1-1.8); ALKALINE PHOSPHATASE 228 U/L (38-133); ALT/SGPT 88 U/L (7-56); AST/SGOT 390 U/L (15-59); BLOOD UREA NITROGEN < 2 mg/dL (7-21); CALCIUM 8.3 mg/dL (8.4-10.5); CARBON DIOXIDE 29 mmol/L (21-33); CHLORIDE 99 mmol/L (98-107); GFR AFRICAN-AMERICAN > 60; GLUCOSE,RANDOM 89 mg/dL (70-110); LIPASE 12 U/L (23-300); SODIUM 139 mmol/L (132-148)
[2017-03-12 22:40] LABS: POTASSIUM 2.7 mmol/L (3.6-5.0)
[2017-03-12] MEDS ORDERED: Potassium Chloride 20 mEq ER Tab PO STA (22:45)
[2017-03-13] MEDS ORDERED: Iohexol 300 100 ML IJ ONE (00:17)
[2017-03-13] MEDS ORDERED: Iohexol 350 MG/100 ML VIAL ONE (00:18)
[2017-03-13 00:56] LABS: URINE BILIRUBIN SMALL (NEGATIVE); URINE BLOOD NEGATIVE (NEGATIVE); URINE GLUCOSE (UA) NEGATIVE (NEGATIVE); URINE KETONE 15 mg/dL (NEGATIVE); URINE LEUKOCYTE ESTERASE NEGATIVE Leu/uL (NEGATIVE); URINE PROTEIN 100 mg/dL (<30 mg/dL)
--- NOTE | 2017-03-13 01:09 | CT ---
EXAM: CT Abdomen and Pelvis With Intravenous Contrast CLINICAL HISTORY: 41 years old, male; Pain; Abdominal pain; Acute; Additional info: Abd pain TECHNIQUE: Axial computed tomography images of the abdomen and pelvis with intravenous contrast. All CT scans at this facility use one or more dose reduction techniques, viz.: automated exposure control; ma/kV adjustment per patient size (including targeted exams where dose is matched to indication; i.e. head); or iterative reconstruction technique. Coronal and sagittal reformatted images were created and reviewed. CONTRAST: 100 mL of omni 350 administered intravenously. COMPARISON: CT - ABD PELVIS W/O PO OR IV CONT 02/11/2017 5:36:06 AM FINDINGS: Lower thorax: The bilateral lung bases are clear. ABDOMEN: Liver: No acute findings. Gallbladder and bile ducts: The gallbladder is decompressed. No calcified stones. No significant intra- or extrahepatic biliary ductal dilation. Pancreas: Enhances homogeneously. No ductal dilation. No discrete mass. Multiple bulky calcifications are identified. Spleen: No acute findings. Adrenals: No acute findings. Kidneys and ureters: No acute findings. No hydronephrosis or renal calculi. No discrete solid mass. PELVIS: Bladder: No acute findings. Reproductive: No acute findings. Appendix: The appendix is not definitively visualized, however no pericecal inflammatory change is identified to suggest the presence of acute appendicitis. ABDOMEN and PELVIS: Stomach and bowel: No obstruction. Mural thickening within the rectosigmoid colon, with trace surrounding inflammatory change. Peritoneum: As above. Lymph nodes: No pathologically enlarged lymph nodes. Vasculature: Unremarkable. Bones: No acute fracture. IMPRESSION: Findings within the rectosigmoid colon suggesting colitis. Additional findings of chronic pancreatitis are again identified.
[2017-03-13 01:14] LABS: URINE APPEARANCE SL CLOUDY (CLEAR); URINE COLOR DARK YELLOW (YELLOW)
[2017-03-13 01:25] LABS: URINE RBC 0 - 2 /hpf (0-2)
[2017-03-13 01:26] LABS: URINE BACTERIA RARE (NEG); URINE WBC 0 - 2 /hpf (0-6)
[2017-03-13] MEDS ORDERED: cefTRIAXone 1 gm 1 GM/100 ML BAG IVPB STA (01:27)
[2017-03-13] MEDS ORDERED: metroNIDAZOLE IV 500 mg/100 ml 500 MG/100 ML BAG IVPB STA (01:27)
--- NOTE | 2017-03-13 02:09 | CP.PCM.HP ---
<Michell Lake - Last Filed: 03/13/17 04:18> History of Present Illness - History of Present Illness History of Present Illness: Michell Lake DO, PGY-1, Night Float CC: Abdominal Pain HPI: 41 year old male, whose past medical history of chronic pancreatitis and alcohol abuse, who presents to the Emergency department complaining of diffuse abdominal pain, namely in the lower quadrants with one bout of vomiting and diarrhea. The diarrhea has subsided since he has stopped eating. He denies any fever, chills, chest pain, shortness of breath, urinary symptoms, headache, dizziness, or any other complaintssea and vomiting. Patient states he has not taken pain medication at home. Patient admits to drinking alcohol within the past few days. PMH: Chronic pancreatitis, alcohol abuse PSH: Denies any Allergies: NKDA Medications: None taken, verified by patient Family History: Mother had DM Social: Smokes a pack of Glio menthols a day, for the past 20 years, drinks 72 oz of beer a day; homeless, unmarried. Present on Admission - Present on Admission Any Indicators Present on Admission: No Review of Systems - Review of Systems Systems not reviewed;Unavailable: Intoxicated - Constitutional Constitutional: absent: Anorexia, Chills, Headache - EENT Eyes: absent: Blurred Vision, Discharge, Loss of Peripheral Vision Nose/Mouth/Throat: absent: Post Nasal Drip, Sinus Pressure, Change in Voice - Cardiovascular Cardiovascular: absent: Chest Pain, Chest Pain at Rest, Diaphoresis - Respiratory Respiratory: absent: Cough, Stridor, Pain on Inspiration - Gastrointestinal Gastrointestinal: Diarrhea, Nausea, Vomiting - Genitourinary Genitourinary: absent: Hematuria, Nocturia, Urinary Incontinence, Urinary Frequency - Musculoskeletal Musculoskeletal: absent: Limited Range of Motion, Loss of Height, Muscle Weakness - Integumentary Integumentary: absent: Photosensitivity, Pruritus, Rash - Neurological Neurological: absent: Disequilibrium, Dizziness, Lack of Coordination - Psychiatric Psychiatric: absent: Abnormal Sleep Pattern, Behavioral Changes, Difficulty Concentrating, Hopelessness - Endocrine Endocrine: absent: Change in Body Appearance, Deepening of Voice, Excessive Sweating - Hematologic/Lymphatic Hematologic: absent: Easy Bleeding, Easy Bruising Past Patient History - Infectious Disease Hx of Infectious Diseases: None - Tetanus Immunizations Tetanus Immunization: Unknown - Past Social History Smoking Status: Current Some Days Smoker - CARDIAC Hx Cardiac Disorders: No - PULMONARY Hx Respiratory Disorders: No Hx Tuberculosis: No - NEUROLOGICAL Hx Neurological Disorder: No Hx Seizures: No - HEENT Hx HEENT Problems: No - RENAL Hx Chronic Kidney Disease: No - ENDOCRINE/METABOLIC Hx Endocrine Disorders: No - HEMATOLOGICAL/ONCOLOGICAL Hx Blood Disorders: No - INTEGUMENTARY Hx Dermatological Problems: No - MUSCULOSKELETAL/RHEUMATOLOGICAL Hx Musculoskeletal Disorders: No Hx Falls: No - GASTROINTESTINAL Hx Gastrointestinal Disorders: Yes Hx Pancreatitis: Yes - GENITOURINARY/GYNECOLOGICAL Hx Genitourinary Disorders: No Hx Sexually Transmitted Disorders: No - PSYCHIATRIC Hx Psychophysiologic Disorder: No Hx Substance Use: Yes - SURGICAL HISTORY Hx Amputation: No Hx Appendectomy: No Hx Cardiac Catheterization: No Hx Cholecystectomy: No Hx Coronary Stent: No Hx Gastric Bypass Surgery: No Hx Hysterectomy: No Hx Joint Replacement: No Hx Kidney Transplant: No Hx Liver Transplant: No Hx Mastectomy: No Hx Musculoskeletal Surgery: No Hx Open Heart Surgery: No Hx Orthopedic Surgery: No Hx Splenectomy: No Hx Valve Replacement: No - ANESTHESIA Hx Anesthesia: No Hx Anesthesia Reactions: No Meds Allergies/Adverse Reactions: Allergies Allergy/AdvReac Type Severity Reaction Status Date / Time No Known Allergies Allergy Verified 03/12/17 21:13 Physical Exam - Constitutional Appears: Non-toxic, No Acute Distress - Head Exam Head Exam: ATRAUMATIC, NORMOCEPHALIC - Eye Exam Eye Exam: Conjunctival injection, EOMI, Normal appearance Pupil Exam: NORMAL ACCOMODATION - ENT Exam ENT Exam: Mucous Membranes Moist, Normal Oropharynx - Neck Exam Neck exam: Positive for: Normal Inspection. Negative for: Tenderness - Respiratory Exam Respiratory Exam: Prolonged Expiratory Phase, NORMAL BREATHING PATTERN - Cardiovascular Exam Cardiovascular Exam: Tachycardia, REGULAR RHYTHM, +S1, +S2 - GI/Abdominal Exam GI & Abdominal Exam: Hyperactive Bowel Sounds. absent: Guarding, Rebound, Rigid Additional comments: some tenderness on palpation in all four quandrants - Rectal Exam Additional comments: patient refused rectal exam - Extremities Exam Extremities exam: Positive for: normal capillary refill, normal inspection. Negative for: calf tenderness, pedal edema - Back Exam Back exam: NORMAL INSPECTION. absent: CVA tenderness (L), CVA tenderness (R) - Neurological Exam Neurological exam: Alert, CN II-XII Intact, Oriented x3 - Psychiatric Exam Psychiatric exam: Normal Affect, Normal Mood - Skin Skin Exam: Dry, Intact, Normal Color, Warm Additional comments: no tenting, patient sweating profusely on scalp and neck Results - Vital Signs Recent Vital Signs: Last Vital Signs Temp 99.6 F 03/12/17 21:14 Pulse 66 03/12/17 21:14 Resp 19 03/12/17 21:14 BP 162/100 H 03/12/17 21:14 Pulse Ox 95 03/12/17 21:14 - Labs Result Diagrams: 03/12/17 22:00 03/12/17 22:00 Labs: Laboratory Results - last 24 hr 03/12/17 03/12/17 03/12/17 22:00 22:00 22:00 WBC 3.3 L D RBC 2.93 L Hgb 10.4 L Hct 30.6 L MCV 104.4 MCH 35.5 H MCHC 34.0 RDW 14.8 H Plt Count 67 L MPV 10.3 Gran % 55.0 Lymph % (Auto) 36.8 H [place] % (Auto) 7.6 H Eos % (Auto) 0.3 L Baso % (Auto) 0.3 Gran # 1.81 Lymph # 1.2 [place] # 0.3 Eos # 0.0 Baso # 0.01 Sodium 139 Potassium 2.7 L* D Chloride 99 Carbon Dioxide 29 Anion Gap 14 BUN < 2 L Creatinine 0.6 Est GFR ( Amer) > 60 Est GFR (Non-Af Amer) > 60 Random Glucose 89 Calcium 8.3 L Magnesium 1.5 L Total Bilirubin 1.0 AST 390 H ALT 88 H Alkaline Phosphatase 228 H Total Protein 7.0 Albumin 3.7 Globulin 3.3 Albumin/Globulin Ratio 1.1 Lipase 12 L Urine Color Urine Appearance Urine pH Ur Specific [place] Urine Protein Urine Glucose (UA) Urine Ketones Urine Blood Urine Nitrate Urine Bilirubin Urine Urobilinogen Ur Leukocyte Esterase Urine RBC Urine WBC Ur Epithelial Cells Urine Bacteria Alcohol, Quantitative 03/12/17 03/13/17 22:00 00:30 WBC RBC Hgb Hct MCV MCH MCHC RDW Plt Count MPV Gran % Lymph % (Auto) [place] % (Auto) Eos % (Auto) Baso % (Auto) Gran # Lymph # [place] # Eos # Baso # Sodium Potassium Chloride Carbon Dioxide Anion Gap BUN Creatinine Est GFR ( Amer) Est GFR (Non-Af Amer) Random Glucose Calcium Magnesium Total Bilirubin AST ALT Alkaline Phosphatase Total Protein Albumin Globulin Albumin/Globulin Ratio Lipase Urine Color Dark yellow Urine Appearance Sl cloudy Urine pH 6.0 Ur Specific [place] >= 1.030 Urine Protein 100 H Urine Glucose (UA) Negative Urine Ketones 15 H Urine Blood Negative Urine Nitrate Negative Urine Bilirubin Small H Urine Urobilinogen 1.0 H Ur Leukocyte Esterase Negative Urine RBC 0 - 2 Urine WBC 0 - 2 Ur Epithelial Cells 3 - 4 Urine Bacteria Rare Alcohol, Quantitative 72 H Assessment & Plan - Assessment and Plan (Free Text) Assessment: 41 year old AA male with a past medical history of chronic pancreatitis and alcohol abuse presents with abdominal pain, mild distension, diarrhea, and 1 episode of NBNB vomiting. Plan: 1) Abdominal pain - CT A/P impression of "findings within the rectosigmoid colon suggesting colitis" and "additional findings of chronic pancreatitis are again identified. " - Etiology of the abdominal pain unknown at this point - Patient has pancreatic insufficiency and has diarrhea with every BM - Stool for ova, parasites, fecal elastase, fecal leukocytes, and fecal fat ordered 2) Thrombocytopenia with mild drop in H&H - Patient denies any dark, bloody BM, or hematemesis - Platelets were checked manually to ensure not just Rouleux formation - Will continue to monitor with CBC daily 3) Electrolyte disturbances - Hypokalemia, repleting - Hypomagnesia 4) Alcohol/Pancreatic Insufficiency related vitamin deficiency - 100 mg of IV Thiamine ordered - Vitamin B12, Folate ordered given Macrocytic Anemia - Vitamin D level ordered - Multivitamin and Folic acid daily - GI consulted, pancreatic enzymes would be appropriate 5) Alcohol withdrawal - Patient was hypertensive, tachycardic, and sweating on exam - Last drink was 24 hours ago -Serum alcohol level was 73 - Ativan 1 mg IV q6h BRUCE - Ativan 1 mg IV q2h PRN for overt withdrawal Case discussed with attending - Date & Time Date: 03/13/17 Time: 04:44 <Henrry Smith P - Last Filed: 03/15/17 08:22> Results - Vital Signs Recent Vital Signs: Last Vital Signs Temp 98.9 F 03/15/17 06:00 Pulse 68 03/15/17 06:00 Resp 22 03/15/17 06:00 BP 155/98 H 03/15/17 06:00 Pulse Ox 99 03/15/17 06:00 - Labs Result Diagrams: 03/15/17 05:30 03/15/17 05:30 Labs: Laboratory Results - last 24 hr 03/15/17 03/15/17 05:30 05:30 WBC 2.6 L* RBC 3.17 L Hgb 11.0 L Hct 33.7 L MCV 106.3 H MCH 34.7 MCHC 32.6 RDW 15.2 H Plt Count 75 L MPV 10.6 Gran % 56.8 Lymph % (Auto) 31.8 [place] % (Auto) 10.2 H Eos % (Auto) 0.8 L Baso % (Auto) 0.4 Gran # 1.50 Lymph # 0.8 L [place] # 0.3 Eos # 0.0 Baso # 0.01 Sodium 137 Potassium 4.2 Chloride 100 Carbon Dioxide 29 Anion Gap 12 BUN < 2 L Creatinine 0.6 Est GFR ( Amer) > 60 Est GFR (Non-Af Amer) > 60 Random Glucose 98 Calcium 8.6 Total Bilirubin 1.1 AST 178 H ALT 72 H Alkaline Phosphatase 211 H Total Protein 6.8 Albumin 3.5 Globulin 3.3 Albumin/Globulin Ratio 1.0 L Attending/Attestation - Attestation I have personally seen and examined this patient.: Yes I have fully participated in the care of the patient.: Yes I have reviewed all pertinent clinical information: Yes Notes (Text): Patient being admitted for abdominal pain, suspected from chronic pancreatitis, possibilities of colitis, stool frequency is chronically high from chronic pancreatitis, alcoholism, pt counselled, clinically suspected malnutrition. Observe, stool w/u, thiamine, ativan, mvt, may need pancreatic enzymes, check, iron, b12, vitd as malnutrition suspected. See orders for detail.
[2017-03-13 03:25] VITALS: O2SAT 99
[2017-03-13] MEDS ORDERED: Sodium Chloride 0.9% 1,000 ML IV SCH (03:38)
[2017-03-13] MEDS ORDERED: Thiamine 100 mg/ml Inj IV STA (03:39)
[2017-03-13] MEDS ORDERED: Magnesium Sulfate 2 GM in Sodium Chloride 0.9% 100 ML IVPB ONE (03:54)
[2017-03-13] MEDS: Potassium Chloride 20 mEq ER Tab PO SCH ×3 (04:38→10:30)
--- NOTE | 2017-03-13 07:17 | RAD ---
HISTORY: abd pain COMPARISON: 10/29/2016 FINDINGS: LUNGS: No active pulmonary disease. Possible granuloma, 2 to 3 mm - left upper lung zone (versus prominent vessel seen on end) PLEURA: No significant pleural effusion identified, no pneumothorax apparent. CARDIOVASCULAR: Cardiomegaly OSSEOUS STRUCTURES: Marked scoliosis VISUALIZED UPPER ABDOMEN: Extensive pancreatic calcifications OTHER FINDINGS: None. IMPRESSION: No interval infiltrate. Pancreatic calcifications consistent with chronic pancreatitis. Cardiomegaly-as before
[2017-03-13 08:20] LABS: BASO # 0.01 K/mm3 (0.0-2.0); BASO % 0.4 % (0.0-3.0); EOS % 0.4 % (1.5-5.0); GRAN # 1.21 (1.4-6.5); GRAN % 48.6 % (50.0-68.0); HEMATOCRIT 31.9 % (42.0-52.0); LYMPH # 1.1 (1.2-3.4); LYMPH % 42.6 % (22.0-35.0); MEAN CELL VOLUME 104.9 fl (80.0-105.0); MEAN CORPUSCULAR HEMOGLOBIN 35.2 pg (25.0-35.0); MEAN CORPUSCULAR HGB CONC 33.5 g/dl (31.0-37.0); MEAN PLATELET VOLUME 10.4 fl (7.0-11.0); MONO # 0.2 (0.1-0.6); RED CELL DISTRIBUTION WIDTH 14.9 % (11.5-14.5)
[2017-03-13 08:25] LABS: WHITE BLOOD COUNT 2.5 10^3/ul (4.5-11.0)
[2017-03-13 08:32] LABS: ALB/GLOB RATIO 1.1 (1.1-1.8); ALKALINE PHOSPHATASE 235 U/L (38-133); ALT/SGPT 92 U/L (7-56); AST/SGOT 459 U/L (15-59); BILIRUBIN,TOTAL 1.1 mg/dL (0.2-1.3); CARBON DIOXIDE 31 mmol/L (21-33); CHLORIDE 102 mmol/L (98-107); GFR AFRICAN-AMERICAN > 60; GLUCOSE,RANDOM 95 mg/dL (70-110); MAGNESIUM 1.9 mg/dL (1.7-2.2); PHOSPHOROUS 3.1 mg/dL (2.5-4.5); POTASSIUM 3.4 mmol/L (3.6-5.0); SODIUM 139 mmol/L (132-148); TOTAL PROTEIN 6.8 g/dL (5.8-8.3)
[2017-03-13 08:33] LABS: BLOOD UREA NITROGEN < 2 mg/dL (7-21)
[2017-03-13 09:10] LABS: IRON 90 ug/dL (45-180)
[2017-03-13] MEDS: Multivitamin Therapeutic Tab PO SCH (10:30)
--- NOTE | 2017-03-13 10:37 | US ---
HISTORY: transaminitis, abdominal pain COMPARISON: 02/01/2017 TECHNIQUE: Sonographic evaluation of the abdomen. FINDINGS: LIVER: Measures 18.6 cm. Probable mild increased liver echotexture. No intrahepatic masses appreciated. No dilated ducts GALLBLADDER: A 3.5 mm echogenic gallbladder focus immobile without consistent-shadowing is noted. The focus resembles a gallbladder polyp. This is similar in appearance to the prior study. On 1 image there may be trace shadowing associated with it. A non shadowing adherent gallstone is another consideration. No worrisome changes in its size are noted. No gallbladder wall thickening pericholecystic fluid or positive sonographic [place] sign elicited. COMMON BILE DUCT: Measures 5.5 mm. No stones. No dilatation. PANCREAS: Unremarkable as visualized. No mass. No ductal dilatation. RIGHT KIDNEY: Measures 10.9 x 4.6 x 7.1cm. Normal echogenicity. No calculus, mass, or hydronephrosis. LEFT KIDNEY: Measures 11.2 x 6.9 x 7.7cm. Normal echogenicity. No calculus, mass, or hydronephrosis. SPLEEN: Images of the spleen appear grossly unremarkable AORTA: No aneurysmal dilatation. IVC: Unremarkable. OTHER FINDINGS: None. IMPRESSION: Mild hepatomegaly. . Mild diffuse increased echogenicity-hepatic steatosis is most likely. Other hepatic parenchymal pathologies not excluded. No masses or dilated ducts suggested The small 3.5 mm echogenic gallbladder focus is consistent with a gallbladder polyp. A non shadowing and/or inconsistently shadowing adherent gallstone is another consideration No ancillary findings to suggest acute or subacute cholecystitis
[2017-03-13] MEDS ORDERED: Ciprofloxacin 400mg/200ml D5W 400 MG/200 ML BAG IVPB SCH (10:45)
[2017-03-13 11:30] LABS: INR 1.11 (0.93-1.08)
[2017-03-13 12:45] LABS: FOLATE 19.9 ng/mL
[2017-03-13] MEDS: metroNIDAZOLE IV 500 mg/100 ml 500 MG/100 ML BAG IVPB SCH ×2 (14:59→21:06)
[2017-03-13] MEDS: Morphine 2 mg/ml ISec IVP PRN ×2 (15:07→21:05)
--- NOTE | 2017-03-13 15:30 | CP.PCM.CON ---
<Radha Orozco - Last Filed: 03/13/17 15:27> History of Present Illness - History of Present Illness History of Present Illness: Gastroenterology Fellow/PGY5 Consult Note 41 year old male with history of Polysubstance Abuse (alcohol, tobacco, ecstasy) , Trichomonas 10/2016, and chronic pancreatitis presenting with abdominal pain. Patient describes multiple episodes of bilious vomiting and watery diarrhea on Saturday which has since resolved. He notes persistent bilateral lower abdominal pain with associated distension leading to ER presentation. Denies sick contacts , recent antibiotics, or travel. Admits to drinknig three 24 ounce beers Saturday prior to symptom onset. Denies bloating, indigestion, heartburn, chest pain, shortness of breath, melena, hematochezia, hematemesis, or unintentional weight loss. No prior EGD or colonoscopy. Family-mother- colon cancer at 44 years of age Social-1/2ppdx 5-10 years, 3-5 24-ounce beers/day x 5-10 years, ecstasy x 1 month, quit few months ago Surgery-none Review of Systems - Review of Systems Review of Systems: 12-point review of systems negative except for as above Past Patient History - Infectious Disease Hx of Infectious Diseases: None - Tetanus Immunizations Tetanus Immunization: Unknown - Past Social History Smoking Status: Heavy Smoker > 10 Cigarettes Daily - CARDIAC Hx Cardiac Disorders: No - PULMONARY Hx Respiratory Disorders: No Hx Tuberculosis: No - NEUROLOGICAL Hx Neurological Disorder: No Hx Seizures: No - HEENT Hx HEENT Problems: No - RENAL Hx Chronic Kidney Disease: No - ENDOCRINE/METABOLIC Hx Endocrine Disorders: No - HEMATOLOGICAL/ONCOLOGICAL Hx Blood Disorders: No - INTEGUMENTARY Hx Dermatological Problems: No - MUSCULOSKELETAL/RHEUMATOLOGICAL Hx Falls: No - GASTROINTESTINAL Hx Gastroesophageal Reflux: Yes Hx Pancreatitis: Yes - GENITOURINARY/GYNECOLOGICAL Hx Genitourinary Disorders: No Hx Sexually Transmitted Disorders: No - PSYCHIATRIC Hx Substance Use: Yes - SURGICAL HISTORY Hx Amputation: No Hx Appendectomy: No Hx Cardiac Catheterization: No Hx Cholecystectomy: No Hx Coronary Stent: No Hx Gastric Bypass Surgery: No Hx Hysterectomy: No Hx Joint Replacement: No Hx Kidney Transplant: No Hx Liver Transplant: No Hx Mastectomy: No Hx Musculoskeletal Surgery: No Hx Open Heart Surgery: No Hx Orthopedic Surgery: No Hx Splenectomy: No Hx Valve Replacement: No - ANESTHESIA Hx Anesthesia: No Hx Anesthesia Reactions: No Meds Allergies/Adverse Reactions: Allergies Allergy/AdvReac Type Severity Reaction Status Date / Time No Known Allergies Allergy Verified 03/12/17 21:13 - Medications Medications: Current Medications Folic Acid (Folic Acid) 1 mg PO DAILY [facility] Last Admin: 03/13/17 10:30 Dose: 1 mg Potassium Chloride 40 meq/ (Sodium Chloride) 1,020 mls @ 110 mls/hr IV .Q9H17M [facility] Last Admin: 03/13/17 10:47 Dose: 110 mls/hr Metronidazole (Flagyl) 500 mg in 100 mls @ 100 mls/hr IVPB Q8 BRUCE PRN Reason: Protocol Last Admin: 03/13/17 14:59 Dose: 100 mls/hr Lorazepam (Ativan) 1 mg IVP Q6H BRUCE PRN Reason: Protocol Last Admin: 03/13/17 10:41 Dose: 1 mg Lorazepam (Ativan) 1 mg IVP Q2H PRN; Protocol PRN Reason: Symptoms of alcohol withdrawl Morphine Sulfate (Morphine) 2 mg IVP Q4H PRN PRN Reason: Pain, severe (8-10) Last Admin: 03/13/17 15:07 Dose: 2 mg Multivitamins (Thera Tab) 1 tab PO DAILY [facility] Last Admin: 03/13/17 10:30 Dose: 1 tab Ondansetron HCl (Zofran Inj) 4 mg IVP Q4H PRN PRN Reason: Nausea/Vomiting Thiamine HCl (Vitamin B1 Tab) 100 mg PO DAILY [facility] Last Admin: 03/13/17 10:41 Dose: 100 mg Physical Exam - Constitutional Appears: Non-toxic, No Acute Distress - Head Exam Head Exam: ATRAUMATIC, NORMOCEPHALIC - Eye Exam Eye Exam: EOMI, PERRL Pupil Exam: PERRL. absent: Miosis, Mydriatic - ENT Exam ENT Exam: Mucous Membranes Moist, Normal Oropharynx - Neck Exam Neck exam: Positive for: Full Rom, Normal Inspection - Respiratory Exam Respiratory Exam: Clear to Auscultation Bilateral. absent: Rales, Rhonchi, Wheezes - Cardiovascular Exam Cardiovascular Exam: RRR, +S1, +S2. absent: Gallop, Rubs - GI/Abdominal Exam GI & Abdominal Exam: Normal Bowel Sounds, Soft, Tenderness. absent: Distended, Firm, Guarding, Organomegaly, Rebound, Rigid Additional comments: B/L LQ tenderness to palpation - Extremities Exam Extremities exam: Positive for: normal inspection. Negative for: pedal edema - Neurological Exam Neurological exam: Alert - Psychiatric Exam Psychiatric exam: Normal Affect, Normal Mood - Skin Skin Exam: Dry, Intact, Normal Color, Warm Results - Vital Signs Recent Vital Signs: Last Vital Signs Temp 98.2 F 03/13/17 11:39 Pulse 64 03/13/17 11:39 Resp 18 03/13/17 11:39 BP 169/92 H 03/13/17 11:39 Pulse Ox 99 03/13/17 06:00 - Labs Result Diagrams: 03/13/17 08:09 03/13/17 08:09 Labs: Laboratory Results - last 24 hr 03/13/17 03/13/17 03/13/17 02:30 07:00 08:09 WBC RBC Hgb Hct MCV MCH MCHC RDW Plt Count MPV Gran % Lymph % (Auto) [place] % (Auto) Eos % (Auto) Baso % (Auto) Gran # Lymph # [place] # Eos # Baso # PT INR Sodium 139 Potassium 3.4 L Chloride 102 Carbon Dioxide 31 Anion Gap 9 L BUN < 2 L Creatinine 0.6 Est GFR ( Amer) > 60 Est GFR (Non-Af Amer) > 60 Random Glucose 95 Calcium 8.0 L Phosphorus 3.1 Magnesium 1.9 Iron 90 TIBC 254 L % Saturation 35 Ferritin 285.0 Total Bilirubin 1.1 AST 459 H ALT 92 H Alkaline Phosphatase 235 H Total Protein 6.8 Albumin 3.5 Globulin 3.2 Albumin/Globulin Ratio 1.1 Vitamin B12 291 25-OH Vitamin D Total Folate 19.9 Urine Opiates Screen Positive H Urine Methadone Screen Negative Ur Barbiturates Screen Negative Ur Phencyclidine Scrn Negative Ur Amphetamines Screen Negative U Benzodiazepines Scrn Negative U Oth Cocaine Metabols Negative U Cannabinoids Screen Negative 03/13/17 03/13/17 03/13/17 08:09 08:09 11:00 WBC 2.5 L* D RBC 3.04 L Hgb 10.7 L Hct 31.9 L MCV 104.9 MCH 35.2 H MCHC 33.5 RDW 14.9 H Plt Count 65 L MPV 10.4 Gran % 48.6 L Lymph % (Auto) 42.6 H [place] % (Auto) 8.0 H Eos % (Auto) 0.4 L Baso % (Auto) 0.4 Gran # 1.21 L Lymph # 1.1 L [place] # 0.2 Eos # 0.0 Baso # 0.01 PT 12.0 H INR 1.11 H Sodium Potassium Chloride Carbon Dioxide Anion Gap BUN Creatinine Est GFR ( Amer) Est GFR (Non-Af Amer) Random Glucose Calcium Phosphorus Magnesium Iron TIBC % Saturation Ferritin Total Bilirubin AST ALT Alkaline Phosphatase Total Protein Albumin Globulin Albumin/Globulin Ratio Vitamin B12 25-OH Vitamin D Total < 12.8 L Folate Urine Opiates Screen Urine Methadone Screen Ur Barbiturates Screen Ur Phencyclidine Scrn Ur Amphetamines Screen U Benzodiazepines Scrn U Oth Cocaine Metabols U Cannabinoids Screen Assessment & Plan - Assessment and Plan (Free Text) Assessment: 41 year old male with history of Polysubstance Abuse, Trichomonas 10/2016, and chronic pancreatitis presenting with abdominal pain. CT A/P IV contrast showing rectosigmoid thickening. No prior EGD or colonoscopy. Plan: >pending stool work up >on Ceftriaxone/Flagyl >pending fecal fat and elastase >transaminitis- negative Hepatitis panel 01/2017, negative autoimmune workup 2016 >U/S -hepatic steatosis, GB polyp vs stone, no biliary dilatation >counselled on alcohol cessation >clear liquid diet, advance as tolerated >will benefit from elective colonoscopy for CRC screening given family history of colon cancer >will follow clinical course <Yusuf LI,Carlos - Last Filed: 03/13/17 17:01> Meds - Medications Medications: Current Medications Folic Acid (Folic Acid) 1 mg PO DAILY [facility] Last Admin: 03/13/17 10:30 Dose: 1 mg Potassium Chloride 40 meq/ (Sodium Chloride) 1,020 mls @ 110 mls/hr IV .Q9H17M [facility] Last Admin: 03/13/17 10:47 Dose: 110 mls/hr Metronidazole (Flagyl) 500 mg in 100 mls @ 100 mls/hr IVPB Q8 BRUCE PRN Reason: Protocol Last Admin: 03/13/17 14:59 Dose: 100 mls/hr Lorazepam (Ativan) 1 mg IVP Q6H BRUCE PRN Reason: Protocol Last Admin: 03/13/17 10:41 Dose: 1 mg Lorazepam (Ativan) 1 mg IVP Q2H PRN; Protocol PRN Reason: Symptoms of alcohol withdrawl Morphine Sulfate (Morphine) 2 mg IVP Q4H PRN PRN Reason: Pain, severe (8-10) Last Admin: 03/13/17 15:07 Dose: 2 mg Multivitamins (Thera Tab) 1 tab PO DAILY [facility] Last Admin: 03/13/17 10:30 Dose: 1 tab Ondansetron HCl (Zofran Inj) 4 mg IVP Q4H PRN PRN Reason: Nausea/Vomiting Thiamine HCl (Vitamin B1 Tab) 100 mg PO DAILY [facility] Last Admin: 03/13/17 10:41 Dose: 100 mg Results - Vital Signs Recent Vital Signs: Last Vital Signs Temp 98.2 F 03/13/17 11:39 Pulse 64 03/13/17 11:39 Resp 18 03/13/17 11:39 BP 169/92 H 03/13/17 11:39 Pulse Ox 99 03/13/17 06:00 - Labs Result Diagrams: 03/13/17 08:09 03/13/17 08:09 Labs: Laboratory Results - last 24 hr 03/13/17 03/13/17 03/13/17 02:30 07:00 08:09 WBC RBC Hgb Hct MCV MCH MCHC RDW Plt Count MPV Gran % Lymph % (Auto) [place] % (Auto) Eos % (Auto) Baso % (Auto) Gran # Lymph # [place] # Eos # Baso # PT INR Sodium 139 Potassium 3.4 L Chloride 102 Carbon Dioxide 31 Anion Gap 9 L BUN < 2 L Creatinine 0.6 Est GFR ( Amer) > 60 Est GFR (Non-Af Amer) > 60 Random Glucose 95 Calcium 8.0 L Phosphorus 3.1 Magnesium 1.9 Iron 90 TIBC 254 L % Saturation 35 Ferritin 285.0 Total Bilirubin 1.1 AST 459 H ALT 92 H Alkaline Phosphatase 235 H Total Protein 6.8 Albumin 3.5 Globulin 3.2 Albumin/Globulin Ratio 1.1 Vitamin B12 291 25-OH Vitamin D Total Folate 19.9 Urine Opiates Screen Positive H Urine Methadone Screen Negative Ur Barbiturates Screen Negative Ur Phencyclidine Scrn Negative Ur Amphetamines Screen Negative U Benzodiazepines Scrn Negative U Oth Cocaine Metabols Negative U Cannabinoids Screen Negative 03/13/17 03/13/17 03/13/17 08:09 08:09 11:00 WBC 2.5 L* D RBC 3.04 L Hgb 10.7 L Hct 31.9 L MCV 104.9 MCH 35.2 H MCHC 33.5 RDW 14.9 H Plt Count 65 L MPV 10.4 Gran % 48.6 L Lymph % (Auto) 42.6 H [place] % (Auto) 8.0 H Eos % (Auto) 0.4 L Baso % (Auto) 0.4 Gran # 1.21 L Lymph # 1.1 L [place] # 0.2 Eos # 0.0 Baso # 0.01 PT 12.0 H INR 1.11 H Sodium Potassium Chloride Carbon Dioxide Anion Gap BUN Creatinine Est GFR ( Amer) Est GFR (Non-Af Amer) Random Glucose Calcium Phosphorus Magnesium Iron TIBC % Saturation Ferritin Total Bilirubin AST ALT Alkaline Phosphatase Total Protein Albumin Globulin Albumin/Globulin Ratio Vitamin B12 25-OH Vitamin D Total < 12.8 L Folate Urine Opiates Screen Urine Methadone Screen Ur Barbiturates Screen Ur Phencyclidine Scrn Ur Amphetamines Screen U Benzodiazepines Scrn U Oth Cocaine Metabols U Cannabinoids Screen Attending/Attestation - Attestation I have personally seen and examined this patient.: Yes I have fully participated in the care of the patient.: Yes I have reviewed all pertinent clinical information: Yes Notes (Text): 03/13/17 16:57 Patient seen and examined at bedside on GI rounds this am. This is a 41 year old male with history of polysubstance Abuse, Trichomonas 10/2016, and chronic pancreatitis presenting with abdominal pain. CT A/P IV contrast showing rectosigmoid thickening with self resolved loose stools. Pending stool infectious work up. pending stool for fat. Elevated transminases with negative hepatitis serologies and auto immune work up. Alcohol cessation. Clear liquid diet trail. Sonogram with hepatic steatosis likely due to alcoholic steatohepatitis. Mother with colon cancer diagnosed at age 44. Will benefit from screening colonoscopy for high risk colon cancer surveillance
--- NOTE | 2017-03-13 17:13 | CARD ---
APPROVED REPORT EKG Measurement Heart [id number] <Conclusion> Normal sinus rhythm with sinus arrhythmia Voltage criteria for left ventricular hypertrophy Prolonged QT Abnormal ECG
--- NOTE | 2017-03-13 17:18 | CP.PCM.CON ---
History of Present Illness - History of Present Illness History of Present Illness: Infectious Disease Consultation: March 13, 2017 41 yo male with diffuse abdominal pain for one day with nausea and vomiting episode. The patient states that he drank alcohol in the last few days. The patient is homeless but smokes daily and drinks at least 72 oz of beer a day. History of chronic pancreatitis. History of alcohol abuse. Sleeping in bed currently. PMHx: Chronic pancreatitis, EtOH abuse PSHx: denies Allergies: NKDA Social Hx: 1ppd of [employer] menthols for 20 years 72 oz of beer daily denies any other substance abuse Homeless Active Medications Folic Acid (Folic Acid) 1 mg PO DAILY [facility] Last Admin: 03/13/17 10:30 Dose: 1 mg Potassium Chloride 40 meq/ (Sodium Chloride) 1,020 mls @ 110 mls/hr IV .Q9H17M [facility] Last Admin: 03/13/17 10:47 Dose: 110 mls/hr Metronidazole (Flagyl) 500 mg in 100 mls @ 100 mls/hr IVPB Q8 [facility] PRN Reason: Protocol Last Admin: 03/13/17 14:59 Dose: 100 mls/hr Lorazepam (Ativan) 1 mg IVP Q6H [facility] PRN Reason: Protocol Last Admin: 03/13/17 10:41 Dose: 1 mg Lorazepam (Ativan) 1 mg IVP Q2H PRN; Protocol PRN Reason: Symptoms of alcohol withdrawl Morphine Sulfate (Morphine) 2 mg IVP Q4H PRN PRN Reason: Pain, severe (8-10) Last Admin: 03/13/17 15:07 Dose: 2 mg Multivitamins (Thera Tab) 1 tab PO DAILY [facility] Last Admin: 03/13/17 10:30 Dose: 1 tab Ondansetron HCl (Zofran Inj) 4 mg IVP Q4H PRN PRN Reason: Nausea/Vomiting Thiamine HCl (Vitamin B1 Tab) 100 mg PO DAILY [facility] Last Admin: 03/13/17 10:41 Dose: 100 mg Family Hx: Diabetes in mother ROS: No fevers, chills, nausea, vomiting, diarrhea, headaches, dizziness, chest pain , melena, hematuria, hematemesis, hematochezia Past Patient History - Infectious Disease Hx of Infectious Diseases: None - Tetanus Immunizations Tetanus Immunization: Unknown - Past Social History Smoking Status: Heavy Smoker > 10 Cigarettes Daily - CARDIAC Hx Cardiac Disorders: No - PULMONARY Hx Respiratory Disorders: No Hx Tuberculosis: No - NEUROLOGICAL Hx Neurological Disorder: No Hx Seizures: No - HEENT Hx HEENT Problems: No - RENAL Hx Chronic Kidney Disease: No - ENDOCRINE/METABOLIC Hx Endocrine Disorders: No - HEMATOLOGICAL/ONCOLOGICAL Hx Blood Disorders: No - INTEGUMENTARY Hx Dermatological Problems: No - MUSCULOSKELETAL/RHEUMATOLOGICAL Hx Falls: No - GASTROINTESTINAL Hx Gastroesophageal Reflux: Yes Hx Pancreatitis: Yes - GENITOURINARY/GYNECOLOGICAL Hx Genitourinary Disorders: No Hx Sexually Transmitted Disorders: No - PSYCHIATRIC Hx Substance Use: Yes - SURGICAL HISTORY Hx Amputation: No Hx Appendectomy: No Hx Cardiac Catheterization: No Hx Cholecystectomy: No Hx Coronary Stent: No Hx Gastric Bypass Surgery: No Hx Hysterectomy: No Hx Joint Replacement: No Hx Kidney Transplant: No Hx Liver Transplant: No Hx Mastectomy: No Hx Musculoskeletal Surgery: No Hx Open Heart Surgery: No Hx Orthopedic Surgery: No Hx Splenectomy: No Hx Valve Replacement: No - ANESTHESIA Hx Anesthesia: No Hx Anesthesia Reactions: No Meds Allergies/Adverse Reactions: Allergies Allergy/AdvReac Type Severity Reaction Status Date / Time No Known Allergies Allergy Verified 03/12/17 21:13 - Medications Medications: Current Medications Folic Acid (Folic Acid) 1 mg PO DAILY [facility] Last Admin: 03/13/17 10:30 Dose: 1 mg Potassium Chloride 40 meq/ (Sodium Chloride) 1,020 mls @ 110 mls/hr IV .Q9H17M [facility] Last Admin: 03/13/17 10:47 Dose: 110 mls/hr Metronidazole (Flagyl) 500 mg in 100 mls @ 100 mls/hr IVPB Q8 [facility] PRN Reason: Protocol Last Admin: 03/13/17 14:59 Dose: 100 mls/hr Lorazepam (Ativan) 1 mg IVP Q6H [facility] PRN Reason: Protocol Last Admin: 03/13/17 10:41 Dose: 1 mg Lorazepam (Ativan) 1 mg IVP Q2H PRN; Protocol PRN Reason: Symptoms of alcohol withdrawl Morphine Sulfate (Morphine) 2 mg IVP Q4H PRN PRN Reason: Pain, severe (8-10) Last Admin: 03/13/17 15:07 Dose: 2 mg Multivitamins (Thera Tab) 1 tab PO DAILY [facility] Last Admin: 03/13/17 10:30 Dose: 1 tab Ondansetron HCl (Zofran Inj) 4 mg IVP Q4H PRN PRN Reason: Nausea/Vomiting Thiamine HCl (Vitamin B1 Tab) 100 mg PO DAILY [facility] Last Admin: 03/13/17 10:41 Dose: 100 mg Physical Exam - Constitutional Appears: Non-toxic, No Acute Distress, Chronically Ill - Head Exam Head Exam: ATRAUMATIC, NORMOCEPHALIC - Eye Exam Eye Exam: EOMI, PERRL Pupil Exam: NORMAL ACCOMODATION, PERRL - ENT Exam ENT Exam: Mucous Membranes Moist, Normal External Ear Exam, TM's Normal Bilaterally - Neck Exam Neck exam: Positive for: Full Rom, Normal Inspection - Respiratory Exam Respiratory Exam: Clear to Auscultation Bilateral, NORMAL BREATHING PATTERN. absent: Rales, Rhonchi, Wheezes - Cardiovascular Exam Cardiovascular Exam: REGULAR RHYTHM, RRR, +S1, +S2 - GI/Abdominal Exam GI & Abdominal Exam: Normal Bowel Sounds, Soft, Tenderness. absent: Distended Additional comments: mild tenderness on palpation in all four quandrant. - Extremities Exam Extremities exam: Positive for: full ROM, normal inspection - Neurological Exam Neurological exam: Alert, CN II-XII Intact, Oriented x3 - Psychiatric Exam Psychiatric exam: Normal Affect, Normal Mood - Skin Skin Exam: Intact, Normal Color Results - Vital Signs Recent Vital Signs: Last Vital Signs Temp 98.2 F 03/13/17 11:39 Pulse 64 03/13/17 11:39 Resp 18 03/13/17 11:39 BP 169/92 H 03/13/17 11:39 Pulse Ox 99 03/13/17 06:00 - Labs Result Diagrams: 03/13/17 08:09 03/13/17 08:09 Labs: Laboratory Results - last 24 hr 03/13/17 03/13/17 03/13/17 02:30 07:00 08:09 WBC RBC Hgb Hct MCV MCH MCHC RDW Plt Count MPV Gran % Lymph % (Auto) [place] % (Auto) Eos % (Auto) Baso % (Auto) Gran # Lymph # [place] # Eos # Baso # PT INR Sodium 139 Potassium 3.4 L Chloride 102 Carbon Dioxide 31 Anion Gap 9 L BUN < 2 L Creatinine 0.6 Est GFR ( Amer) > 60 Est GFR (Non-Af Amer) > 60 Random Glucose 95 Calcium 8.0 L Phosphorus 3.1 Magnesium 1.9 Iron 90 TIBC 254 L % Saturation 35 Ferritin 285.0 Total Bilirubin 1.1 AST 459 H ALT 92 H Alkaline Phosphatase 235 H Total Protein 6.8 Albumin 3.5 Globulin 3.2 Albumin/Globulin Ratio 1.1 Vitamin B12 291 25-OH Vitamin D Total Folate 19.9 Urine Opiates Screen Positive H Urine Methadone Screen Negative Ur Barbiturates Screen Negative Ur Phencyclidine Scrn Negative Ur Amphetamines Screen Negative U Benzodiazepines Scrn Negative U Oth Cocaine Metabols Negative U Cannabinoids Screen Negative 03/13/17 03/13/17 03/13/17 08:09 08:09 11:00 WBC 2.5 L* D RBC 3.04 L Hgb 10.7 L Hct 31.9 L MCV 104.9 MCH 35.2 H MCHC 33.5 RDW 14.9 H Plt Count 65 L MPV 10.4 Gran % 48.6 L Lymph % (Auto) 42.6 H [place] % (Auto) 8.0 H Eos % (Auto) 0.4 L Baso % (Auto) 0.4 Gran # 1.21 L Lymph # 1.1 L [place] # 0.2 Eos # 0.0 Baso # 0.01 PT 12.0 H INR 1.11 H Sodium Potassium Chloride Carbon Dioxide Anion Gap BUN Creatinine Est GFR ( Amer) Est GFR (Non-Af Amer) Random Glucose Calcium Phosphorus Magnesium Iron TIBC % Saturation Ferritin Total Bilirubin AST ALT Alkaline Phosphatase Total Protein Albumin Globulin Albumin/Globulin Ratio Vitamin B12 25-OH Vitamin D Total < 12.8 L Folate Urine Opiates Screen Urine Methadone Screen Ur Barbiturates Screen Ur Phencyclidine Scrn Ur Amphetamines Screen U Benzodiazepines Scrn U Oth Cocaine Metabols U Cannabinoids Screen Assessment & Plan - Assessment and Plan (Free Text) Assessment: 41 yo AA male with history of chronic pancreatitis and alcohol abuse presenting with abdominal pain. The patient has colitis. On Cipro. Supportive care. Thank you for allowing me to participate in the care of the patient, we will follow with you.
[2017-03-13] MEDS: Ciprofloxacin 400mg/200ml D5W 400 MG/200 ML BAG IVPB SCH (22:16)
[2017-03-14] MEDS: metroNIDAZOLE IV 500 mg/100 ml 500 MG/100 ML BAG IVPB SCH ×3 (05:09→21:39)
[2017-03-14] MEDS: Morphine 2 mg/ml ISec IVP PRN ×5 (05:14→21:38)
[2017-03-14 07:21] LABS: EOS % 1.2 % (1.5-5.0); GRAN # 1.53 (1.4-6.5); GRAN % 59.7 % (50.0-68.0); HEMATOCRIT 32.7 % (42.0-52.0); LYMPH # 0.8 (1.2-3.4); LYMPH % 30.5 % (22.0-35.0); MEAN CELL VOLUME 106.2 fl (80.0-105.0); MEAN CORPUSCULAR HEMOGLOBIN 34.7 pg (25.0-35.0); MEAN CORPUSCULAR HGB CONC 32.7 g/dl (31.0-37.0); MONO # 0.2 (0.1-0.6); MONO % 8.6 % (1.0-6.0)
[2017-03-14 07:32] LABS: ALKALINE PHOSPHATASE 216 U/L (38-133); ALT/SGPT 77 U/L (7-56); AST/SGOT 232 U/L (15-59); BILIRUBIN,TOTAL 1.1 mg/dL (0.2-1.3); BLOOD UREA NITROGEN < 2 mg/dL (7-21); CALCIUM 8.4 mg/dL (8.4-10.5); CARBON DIOXIDE 31 mmol/L (21-33); CHLORIDE 100 mmol/L (95-110); GFR AFRICAN-AMERICAN > 60; GLUCOSE,RANDOM 92 mg/dL (70-110); POTASSIUM 4.4 mmol/L (3.6-5.0); SODIUM 138 mmol/L (132-148); TOTAL PROTEIN 6.6 g/dL (5.8-8.3)
[2017-03-14 07:41] LABS: WHITE BLOOD COUNT 2.6 10^3/ul (4.5-11.0)
[2017-03-14] MEDS: Multivitamin Therapeutic Tab PO SCH (09:10)
[2017-03-14] MEDS: Ciprofloxacin 400mg/200ml D5W 400 MG/200 ML BAG IVPB SCH ×2 (09:10→22:50)
--- NOTE | 2017-03-14 11:43 | CP.PCM.PN ---
<Rosemarie Orozconelle - Last Filed: 03/14/17 11:39> Subjective - Date & Time of Evaluation Date of Evaluation: 03/14/17 Time of Evaluation: 11:40 - Subjective Subjective: Gastroenterology Fellow/PGY5 Progress Note Patient notes improving abdominal pain, pain scale 4/10. Tolerating clear liquid diet. No bowel movement. 12-point review of systems negative except for as above. Objective - Vital Signs/Intake and Output Vital Signs (last 24 hours): Temp Pulse Resp BP Pulse Ox 97.6 F 64 20 158/78 H 99 03/14/17 06:00 03/14/17 10:00 03/14/17 06:00 03/14/17 06:00 03/14/17 06:00 Intake and Output: 03/14/17 03/14/17 06:59 18:59 Intake Total 1640 Output Total 700 Balance 940 - Medications Medications: Current Medications Folic Acid (Folic Acid) 1 mg PO DAILY [facility] Last Admin: 03/14/17 09:09 Dose: 1 mg Potassium Chloride 40 meq/ (Sodium Chloride) 1,020 mls @ 110 mls/hr IV .Q9H17M [facility] Last Admin: 03/14/17 06:42 Dose: Not Given Metronidazole (Flagyl) 500 mg in 100 mls @ 100 mls/hr IVPB Q8 [facility] PRN Reason: Protocol Last Admin: 03/14/17 05:09 Dose: 100 mls/hr Ciprofloxacin (Cipro 400mg/200ml Dsw) 400 mg in 200 mls @ 133.3 mls/hr IVPB Q12 [facility] PRN Reason: Protocol Last Admin: 03/14/17 09:10 Dose: 133.3 mls/hr Lorazepam (Ativan) 1 mg IVP Q6H [facility] PRN Reason: Protocol Last Admin: 03/14/17 06:45 Dose: Not Given Lorazepam (Ativan) 1 mg IVP Q2H PRN; Protocol PRN Reason: Symptoms of alcohol withdrawl Morphine Sulfate (Morphine) 2 mg IVP Q4H PRN PRN Reason: Pain, severe (8-10) Last Admin: 03/14/17 09:10 Dose: 2 mg Multivitamins (Thera Tab) 1 tab PO DAILY [facility] Last Admin: 03/14/17 09:10 Dose: 1 tab Ondansetron HCl (Zofran Inj) 4 mg IVP Q4H PRN PRN Reason: Nausea/Vomiting Thiamine HCl (Vitamin B1 Tab) 100 mg PO DAILY [facility] Last Admin: 03/14/17 09:10 Dose: 100 mg - Labs Labs: 03/14/17 06:30 03/14/17 06:30 PT 12.0 Seconds (9.9-11.8) H 03/13/17 11:00 INR 1.11 (0.93-1.08) H 03/13/17 11:00 - Constitutional Appears: Non-toxic, No Acute Distress - Head Exam Head Exam: ATRAUMATIC, NORMOCEPHALIC - Eye Exam Eye Exam: EOMI, PERRL Pupil Exam: PERRL. absent: Miosis, Mydriatic - ENT Exam ENT Exam: Mucous Membranes Moist, Normal Oropharynx - Neck Exam Neck Exam: Full ROM, Normal Inspection - Respiratory Exam Respiratory Exam: Clear to Ausculation Bilateral. absent: Rales, Rhonchi, Wheezes - Cardiovascular Exam Cardiovascular Exam: RRR, +S1, +S2. absent: Gallop, Rubs - GI/Abdominal Exam GI & Abdominal Exam: Soft, Tenderness, Normal Bowel Sounds. absent: Distended, Firm, Guarding, Rigid, Organomegaly, Rebound Additional comments: LLQ tenderness to palpation - Extremities Exam Extremities Exam: Normal Inspection. absent: Pedal Edema - Neurological Exam Neurological Exam: Alert, Awake - Psychiatric Exam Psychiatric exam: Normal Affect, Normal Mood - Skin Skin Exam: Dry, Intact, Normal Color, Warm Assessment and Plan - Assessment and Plan (Free Text) Assessment: 41 year old male with history of Polysubstance Abuse, Trichomonas 10/2016, and chronic pancreatitis presenting with abdominal pain. Active treatment of rectosigmoid colitis and transaminitis with negative Hepatitis panel 01/2017 and autoimmune workup 10/2016. Ultrasound showed hepatic steatosis and 3.5mm GB polyp versus stone. No prior EGD or colonoscopy. Plan: >no bowel movements to collect stool work up >on Ceftriaxone/Flagyl >LFTs improving >counselled on alcohol cessation >full liquid diet, advance as tolerated >will benefit from elective colonoscopy for CRC screening given family history of colon cancer >will follow clinical course <Angel Joyner - Last Filed: 03/14/17 11:49> Objective - Vital Signs/Intake and Output Vital Signs (last 24 hours): Temp Pulse Resp BP Pulse Ox 97.6 F 64 20 158/78 H 99 03/14/17 06:00 03/14/17 10:00 03/14/17 06:00 03/14/17 06:00 03/14/17 06:00 Intake and Output: 03/14/17 03/14/17 06:59 18:59 Intake Total 1640 Output Total 700 Balance 940 - Medications Medications: Current Medications Folic Acid (Folic Acid) 1 mg PO DAILY [facility] Last Admin: 03/14/17 09:09 Dose: 1 mg Potassium Chloride 40 meq/ (Sodium Chloride) 1,020 mls @ 110 mls/hr IV .Q9H17M [facility] Last Admin: 03/14/17 06:42 Dose: Not Given Metronidazole (Flagyl) 500 mg in 100 mls @ 100 mls/hr IVPB Q8 [facility] PRN Reason: Protocol Last Admin: 03/14/17 05:09 Dose: 100 mls/hr Ciprofloxacin (Cipro 400mg/200ml Dsw) 400 mg in 200 mls @ 133.3 mls/hr IVPB Q12 [facility] PRN Reason: Protocol Last Admin: 03/14/17 09:10 Dose: 133.3 mls/hr Lorazepam (Ativan) 1 mg IVP Q6H [facility] PRN Reason: Protocol Last Admin: 03/14/17 06:45 Dose: Not Given Lorazepam (Ativan) 1 mg IVP Q2H PRN; Protocol PRN Reason: Symptoms of alcohol withdrawl Morphine Sulfate (Morphine) 2 mg IVP Q4H PRN PRN Reason: Pain, severe (8-10) Last Admin: 03/14/17 09:10 Dose: 2 mg Multivitamins (Thera Tab) 1 tab PO DAILY [facility] Last Admin: 03/14/17 09:10 Dose: 1 tab Ondansetron HCl (Zofran Inj) 4 mg IVP Q4H PRN PRN Reason: Nausea/Vomiting Thiamine HCl (Vitamin B1 Tab) 100 mg PO DAILY [facility] Last Admin: 03/14/17 09:10 Dose: 100 mg - Labs Labs: 03/14/17 06:30 03/14/17 06:30 PT 12.0 Seconds (9.9-11.8) H 03/13/17 11:00 INR 1.11 (0.93-1.08) H 03/13/17 11:00 Attending/Attestation - Attestation I have personally seen and examined this patient.: Yes I have fully participated in the care of the patient.: Yes I have reviewed all pertinent clinical information, including history, physical exam and plan: Yes Notes (Text): 03/14/17 11:47 41 year old male with history of EtOH abuse and chronic pancreatitis admitted with lower abdominal pain and diarrhea, also elevated lfts. 1. Colitis 2. Alcoholic hepatitis 3. Chronic pancreatitis Plan: -improving with abx -advance diet as tolerated -outpatient colonoscopy advised -etoh cessation advised -supportive care
--- NOTE | 2017-03-14 15:56 | CP.PCM.PN ---
<ASHWINI LAWLER - Last Filed: 03/14/17 15:52> Subjective - Date & Time of Evaluation Date of Evaluation: 03/14/17 Time of Evaluation: 15:52 - Subjective Subjective: MEDICINE PROGRESS NOTE: Pt seen and assessed at bedside. Pt had no new complaints at this evaluation and states that his abdominal pain has started to resolve. He does express concern that he hasn't had a BM and only had flatulence but acknowledges that he hasn't had a lot to eat over the past few days. Pt denies any headache, dizziness, changes in his vision, fever, chest pain, palpitations, shortness of breath, cough, N/V, diarrhea, constipation, any urinary symptoms, or any seizures. Objective - Vital Signs/Intake and Output Vital Signs (last 24 hours): Temp Pulse Resp BP Pulse Ox 98.7 F 71 20 155/90 H 99 03/14/17 12:00 03/14/17 14:00 03/14/17 12:00 03/14/17 12:00 03/14/17 06:00 - Medications Medications: Current Medications Folic Acid (Folic Acid) 1 mg PO DAILY [facility] Last Admin: 03/14/17 09:09 Dose: 1 mg Potassium Chloride 40 meq/ (Sodium Chloride) 1,020 mls @ 110 mls/hr IV .Q9H17M [facility] Last Admin: 03/14/17 06:42 Dose: Not Given Metronidazole (Flagyl) 500 mg in 100 mls @ 100 mls/hr IVPB Q8 [facility] PRN Reason: Protocol Last Admin: 03/14/17 13:19 Dose: 100 mls/hr Ciprofloxacin (Cipro 400mg/200ml Dsw) 400 mg in 200 mls @ 133.3 mls/hr IVPB Q12 [facility] PRN Reason: Protocol Last Admin: 03/14/17 09:10 Dose: 133.3 mls/hr Lorazepam (Ativan) 1 mg IVP Q6H [facility] PRN Reason: Protocol Last Admin: 03/14/17 13:13 Dose: Not Given Lorazepam (Ativan) 1 mg IVP Q2H PRN; Protocol PRN Reason: Symptoms of alcohol withdrawl Morphine Sulfate (Morphine) 2 mg IVP Q4H PRN PRN Reason: Pain, severe (8-10) Last Admin: 03/14/17 13:19 Dose: 2 mg Multivitamins (Thera Tab) 1 tab PO DAILY [facility] Last Admin: 03/14/17 09:10 Dose: 1 tab Ondansetron HCl (Zofran Inj) 4 mg IVP Q4H PRN PRN Reason: Nausea/Vomiting Thiamine HCl (Vitamin B1 Tab) 100 mg PO DAILY [facility] Last Admin: 03/14/17 09:10 Dose: 100 mg - Labs Labs: PT 12.0 Seconds (9.9-11.8) H 03/13/17 11:00 INR 1.11 (0.93-1.08) H 03/13/17 11:00 - Constitutional Appears: Non-toxic, No Acute Distress - Head Exam Head Exam: ATRAUMATIC, NORMOCEPHALIC - Eye Exam Eye Exam: EOMI, Normal appearance, PERRL - ENT Exam ENT Exam: Mucous Membranes Moist, Normal Exam, Normal Oropharynx - Neck Exam Neck Exam: Full ROM, Normal Inspection. absent: Lymphadenopathy, Tenderness - Respiratory Exam Respiratory Exam: Clear to Ausculation Bilateral, NORMAL BREATHING PATTERN. absent: Rales, Rhonchi, Wheezes, Respiratory Distress - Cardiovascular Exam Cardiovascular Exam: REGULAR RHYTHM, RRR, +S1, +S2. absent: Tachycardia, Irregular Rhythm - GI/Abdominal Exam GI & Abdominal Exam: Soft, Tenderness, Normal Bowel Sounds. absent: Firm, Guarding Additional comments: TTP in RLQ, LLQ and hypogastric regions with no rebound tenderness - Exam Exam: absent: Bladder Distension - Extremities Exam Extremities Exam: Normal Capillary Refill, Normal Inspection. absent: Calf Tenderness, Pedal Edema - Back Exam Back Exam: absent: CVA tenderness (L), CVA tenderness (R), paraspinal tenderness , rash noted, vertebral tenderness - Neurological Exam Neurological Exam: Alert, Awake, Normal Gait, Oriented x3 - Psychiatric Exam Psychiatric exam: Normal Affect, Normal Mood - Skin Skin Exam: Dry, Intact, Normal Color, Warm Assessment and Plan - Assessment and Plan (Free Text) Assessment: 41 yo AA male with history of chronic pancreatitis and alcohol abuse who presented with abdominal pain, N/V and diarrhea for a duration of 2 days and found to have rectosigmoid colitis on CT abdomen/pelvis. Plan: 1. Rectosigmoid Colitis -CT abdomen/pelvis showed rectosigmoid colitis -Abdominal U/S showed hepatic steatosis, normal CBD, and gallbladder polyp versus stone -continue IV Cipro and Flagyl (day 2) -afebrile, non-hypotensive, non-tachycardic, and with no leukocytosis since admission -full liquid diet with low sodium, will advance as tolerated -IVF: Normal Saline with KCl at 110mls/hr -Zofran 4mg IVP Q4HPRN for N/V -Morphine 2mg IVP Q4H PRN for pain control -FOBT, Stool culture, Stool C. Diff, Fecal Leukocytes, Stool Ova and Parasite pending (patient with no BM's since admission) -GI and ID consulted, appreciate all recommendations -Will benefit from elective colonoscopy for CRC screening given family history of colon cancer, per GI 2. 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 Chronic Pancreatitis -CT abdomen/pelvis and Chest X-Ray showed signs of chronic pancreatitis -Lipase at 12 -fecal fat and fecal pancreatic elastase pending 4. Hypokalemia-Resolved -K+ currently at 4.4, which is increased from 2.7 at admission -repleted with KCl 20meq IVPB once and addition of KCl to IVF -continue to monitor with daily CMP 5. Hypomagnesemia-Resolved -Mg+ currently at 1.9, which is increased from 1.5 at admission -repleted with addition of 2mg of magnesium sulfate in IVF on 03/13 -will continue to monitor 6. GI/DVT Prophylaxis -Protonix/scd's Patient seen and case discussed in detail with attending, Dr. Benson Florez. <Benson Florez - Last Filed: 03/15/17 17:21> Objective - Vital Signs/Intake and Output Vital Signs (last 24 hours): Temp Pulse Resp BP Pulse Ox 99 F 69 20 145/93 H 99 03/15/17 11:53 03/15/17 11:53 03/15/17 11:53 03/15/17 11:53 03/15/17 06:00 Intake and Output: 03/15/17 03/15/17 06:59 18:59 Intake Total 2320 650 Balance 2320 650 - Labs Labs: 03/15/17 05:30 03/15/17 05:30 PT 12.0 Seconds (9.9-11.8) H 03/13/17 11:00 INR 1.11 (0.93-1.08) H 03/13/17 11:00 Attending/Attestation - Attestation I have personally seen and examined this patient.: Yes I have fully participated in the care of the patient.: Yes I have reviewed all pertinent clinical information, including history, physical exam and plan: Yes Notes (Text): I have seen and examined the patient at bedside. Agree with the above note with the following additions/ exceptions: Briefly this is 41 year old male with history of chronic pancreatitis and alcohol abuse who was admitted with acute colitis. He is on cipro and flagyl. Tolerating clear liquid diet. Stool for cdiff pending. He denies any symptoms of alcohol withdrawal. Patient is homeless however does not want to go to [facility]. Upon discharge patient will go to Dr Cruz Patricio. Dr Benson Florez.
--- NOTE | 2017-03-14 18:59 | CP.PCM.PN ---
Subjective - Date & Time of Evaluation Date of Evaluation: 03/14/17 Time of Evaluation: 17:00 - Subjective Subjective: Infectious Disease Follow Up: March 14, 2017 41 yo male with diffuse abdominal pain for one day with nausea and vomiting episode. The patient states that he drank alcohol in the last few days. The patient is homeless but smokes daily and drinks at least 72 oz of beer a day. History of chronic pancreatitis. History of alcohol abuse. He states abdominal pain has improved. He has not had a bowel movement. Objective - Vital Signs/Intake and Output Vital Signs (last 24 hours): Temp Pulse Resp BP Pulse Ox 98.5 F 59 L 18 155/90 H 99 03/14/17 17:52 03/14/17 18:00 03/14/17 17:52 03/14/17 12:00 03/14/17 06:00 - Medications Medications: Current Medications Folic Acid (Folic Acid) 1 mg PO DAILY [facility] Last Admin: 03/14/17 09:09 Dose: 1 mg Potassium Chloride 40 meq/ (Sodium Chloride) 1,020 mls @ 110 mls/hr IV .Q9H17M [facility] Last Admin: 03/14/17 06:42 Dose: Not Given Metronidazole (Flagyl) 500 mg in 100 mls @ 100 mls/hr IVPB Q8 [facility] PRN Reason: Protocol Last Admin: 03/14/17 13:19 Dose: 100 mls/hr Ciprofloxacin (Cipro 400mg/200ml Dsw) 400 mg in 200 mls @ 133.3 mls/hr IVPB Q12 [facility] PRN Reason: Protocol Last Admin: 03/14/17 09:10 Dose: 133.3 mls/hr Lorazepam (Ativan) 1 mg IVP Q6H [facility] PRN Reason: Protocol Last Admin: 03/14/17 16:07 Dose: 1 mg Lorazepam (Ativan) 1 mg IVP Q2H PRN; Protocol PRN Reason: Symptoms of alcohol withdrawl Morphine Sulfate (Morphine) 2 mg IVP Q4H PRN PRN Reason: Pain, severe (8-10) Last Admin: 03/14/17 17:13 Dose: 2 mg Multivitamins (Thera Tab) 1 tab PO DAILY [facility] Last Admin: 03/14/17 09:10 Dose: 1 tab Ondansetron HCl (Zofran Inj) 4 mg IVP Q4H PRN PRN Reason: Nausea/Vomiting Pantoprazole Sodium (Protonix Inj) 40 mg IVP DAILY [facility] Last Admin: 03/14/17 17:11 Dose: 40 mg Thiamine HCl (Vitamin B1 Tab) 100 mg PO DAILY [facility] Last Admin: 03/14/17 09:10 Dose: 100 mg - Labs Labs: PT 12.0 Seconds (9.9-11.8) H 03/13/17 11:00 INR 1.11 (0.93-1.08) H 03/13/17 11:00 - Constitutional Appears: Non-toxic, No Acute Distress, Chronically Ill - Head Exam Head Exam: ATRAUMATIC, NORMOCEPHALIC - Eye Exam Eye Exam: EOMI, PERRL Pupil Exam: NORMAL ACCOMODATION, PERRL - ENT Exam ENT Exam: Mucous Membranes Moist, Normal External Ear Exam, TM's Normal Bilaterally - Neck Exam Neck Exam: Full ROM, Normal Inspection - Respiratory Exam Respiratory Exam: Clear to Ausculation Bilateral, NORMAL BREATHING PATTERN. absent: Rales, Rhonchi, Wheezes - Cardiovascular Exam Cardiovascular Exam: REGULAR RHYTHM, RRR, +S1, +S2 - GI/Abdominal Exam GI & Abdominal Exam: Soft, Normal Bowel Sounds. absent: Distended, Tenderness - Extremities Exam Extremities Exam: Full ROM, Normal Inspection - Neurological Exam Neurological Exam: Alert, Awake, CN II-XII Intact, Oriented x3 - Psychiatric Exam Psychiatric exam: Normal Affect, Normal Mood - Skin Skin Exam: Intact, Normal Color Assessment and Plan - Assessment and Plan (Free Text) Assessment: 41 yo AA male with history of chronic pancreatitis and alcohol abuse presenting with abdominal pain. The patient has colitis. On Cipro. Supportive care. The patient states abdominal pain did improve compared to admission. Remains on Cipro for antibiotic therapy. Thank you for allowing me to participate in the care of the patient, we will follow with you.
[2017-03-15] MEDS: metroNIDAZOLE IV 500 mg/100 ml 500 MG/100 ML BAG IVPB SCH (05:50)
[2017-03-15] MEDS ORDERED: Pantoprazole 40 mg EC Tab PO SCH (06:00)
[2017-03-15 06:20] LABS: BASO # 0.01 K/mm3 (0.0-2.0); BASO % 0.4 % (0.0-3.0); EOS % 0.8 % (1.5-5.0); GRAN # 1.5 (1.4-6.5); GRAN % 56.8 % (50.0-68.0); HEMATOCRIT 33.7 % (42.0-52.0); LYMPH # 0.8 (1.2-3.4); LYMPH % 31.8 % (22.0-35.0); MEAN CELL VOLUME 106.3 fl (80.0-105.0); MEAN CORPUSCULAR HEMOGLOBIN 34.7 pg (25.0-35.0); MEAN CORPUSCULAR HGB CONC 32.6 g/dl (31.0-37.0); MEAN PLATELET VOLUME 10.6 fl (7.0-11.0); MONO # 0.3 (0.1-0.6); MONO % 10.2 % (1.0-6.0); RED CELL DISTRIBUTION WIDTH 15.2 % (11.5-14.5)
[2017-03-15 06:33] LABS: ALKALINE PHOSPHATASE 211 U/L (38-133); ALT/SGPT 72 U/L (7-56); AST/SGOT 178 U/L (15-59); BILIRUBIN,TOTAL 1.1 mg/dL (0.2-1.3); BLOOD UREA NITROGEN < 2 mg/dL (7-21); CALCIUM 8.6 mg/dL (8.4-10.5); CARBON DIOXIDE 29 mmol/L (21-33); CHLORIDE 100 mmol/L (95-110); GFR AFRICAN-AMERICAN > 60; GLUCOSE,RANDOM 98 mg/dL (70-110); POTASSIUM 4.2 mmol/L (3.6-5.0); SODIUM 137 mmol/L (132-148)
[2017-03-15 06:40] LABS: WHITE BLOOD COUNT 2.6 10^3/ul (4.5-11.0)
[2017-03-15 06:43] LABS: TOTAL PROTEIN 6.8 g/dL (5.8-8.3)
[2017-03-15] MEDS: Morphine 2 mg/ml ISec IVP PRN (08:47)
[2017-03-15] MEDS: Multivitamin Therapeutic Tab PO SCH (10:07)
[2017-03-15] MEDS: Ciprofloxacin 400mg/200ml D5W 400 MG/200 ML BAG IVPB SCH (10:08)
[2017-03-15 11:54] VITALS: BP 145/93; PULSE 69; RESP 20; TEMP 99
--- NOTE | 2017-03-15 16:22 | CP.PCM.PN ---
Subjective - Date & Time of Evaluation Date of Evaluation: 03/15/17 Time of Evaluation: 13:00 - Subjective Subjective: Infectious Disease Follow Up: March 15, 2017 41 yo male with diffuse abdominal pain for one day with nausea and vomiting episode. The patient states that he drank alcohol in the last few days. The patient is homeless but smokes daily and drinks at least 72 oz of beer a day. History of chronic pancreatitis. History of alcohol abuse. He states abdominal pain has improved. He has not had a bowel movement. No new issues. Objective - Vital Signs/Intake and Output Vital Signs (last 24 hours): Temp Pulse Resp BP Pulse Ox 99 F 69 20 145/93 H 99 03/15/17 11:53 03/15/17 11:53 03/15/17 11:53 03/15/17 11:53 03/15/17 06:00 Intake and Output: 03/15/17 03/15/17 06:59 18:59 Intake Total 2320 650 Balance 2320 650 - Labs Labs: 03/15/17 05:30 03/15/17 05:30 PT 12.0 Seconds (9.9-11.8) H 03/13/17 11:00 INR 1.11 (0.93-1.08) H 03/13/17 11:00 - Constitutional Appears: Non-toxic, No Acute Distress, Chronically Ill - Head Exam Head Exam: ATRAUMATIC, NORMOCEPHALIC - Eye Exam Eye Exam: EOMI, PERRL Pupil Exam: NORMAL ACCOMODATION, PERRL - ENT Exam ENT Exam: Mucous Membranes Moist, Normal External Ear Exam, TM's Normal Bilaterally - Neck Exam Neck Exam: Full ROM, Normal Inspection - Respiratory Exam Respiratory Exam: Clear to Ausculation Bilateral, NORMAL BREATHING PATTERN. absent: Rales, Rhonchi, Wheezes - Cardiovascular Exam Cardiovascular Exam: REGULAR RHYTHM, RRR, +S1, +S2 - GI/Abdominal Exam GI & Abdominal Exam: Soft, Normal Bowel Sounds. absent: Distended, Tenderness - Extremities Exam Extremities Exam: Full ROM, Normal Inspection - Neurological Exam Neurological Exam: Alert, Awake, CN II-XII Intact, Oriented x3 - Psychiatric Exam Psychiatric exam: Normal Affect, Normal Mood - Skin Skin Exam: Intact, Normal Color Assessment and Plan - Assessment and Plan (Free Text) Assessment: 41 yo AA male with history of chronic pancreatitis and alcohol abuse presenting with abdominal pain. The patient has colitis. On Cipro. Supportive care. The patient states abdominal pain did improve compared to admission. Remains on Cipro for antibiotic therapy. Clinically appears better. Potential discharge home today. Thank you for allowing me to participate in the care of the patient, we will follow with you.
--- NOTE | 2017-03-17 21:09 | CP.PCM.DIS ---
<ASHWINI LAWLER - Last Filed: 03/17/17 21:06> Provider - Provider Date of Admission: 03/14/17 13:02 Attending physician: Benson Florez MD Primary care physician: Sheng Cole MD Consults: SURJIT Joyner ID: Go Time Spent in preparation of Discharge (in minutes): 47 Hospital Course - Lab Results Lab Results: Most Recent Lab Values WBC 2.6 10^3/ul (4.5-11.0) L* 03/15/17 05:30 RBC 3.17 10^6/uL (3.5-6.1) L 03/15/17 05:30 Hgb 11.0 g/dL (14.0-18.0) L 03/15/17 05:30 Hct 33.7 % (42.0-52.0) L 03/15/17 05:30 MCV 106.3 fl (80.0-105.0) H 03/15/17 05:30 MCH 34.7 pg (25.0-35.0) 03/15/17 05:30 MCHC 32.6 g/dl (31.0-37.0) 03/15/17 05:30 RDW 15.2 % (11.5-14.5) H 03/15/17 05:30 Plt Count 75 10^3/uL (120.0-450.0) L 03/15/17 05:30 MPV 10.6 fl (7.0-11.0) 03/15/17 05:30 Gran % 56.8 % (50.0-68.0) 03/15/17 05:30 Lymph % (Auto) 31.8 % (22.0-35.0) 03/15/17 05:30 [place] % (Auto) 10.2 % (1.0-6.0) H 03/15/17 05:30 Eos % (Auto) 0.8 % (1.5-5.0) L 03/15/17 05:30 Baso % (Auto) 0.4 % (0.0-3.0) 03/15/17 05:30 Gran # 1.50 (1.4-6.5) 03/15/17 05:30 Lymph # 0.8 (1.2-3.4) L 03/15/17 05:30 [place] # 0.3 (0.1-0.6) 03/15/17 05:30 Eos # 0.0 (0.0-0.7) 03/15/17 05:30 Baso # 0.01 K/mm3 (0.0-2.0) 03/15/17 05:30 PT 12.0 Seconds (9.9-11.8) H 03/13/17 11:00 INR 1.11 (0.93-1.08) H 03/13/17 11:00 Sodium 137 mmol/L (132-148) 03/15/17 05:30 Potassium 4.2 mmol/L (3.6-5.0) 03/15/17 05:30 Chloride 100 mmol/L (95-110) 03/15/17 05:30 Carbon Dioxide 29 mmol/L (21-33) 03/15/17 05:30 Anion Gap 12 (10-20) 03/15/17 05:30 BUN < 2 mg/dL (7-21) L 03/15/17 05:30 Creatinine 0.6 mg/dL (0.5-1.4) 03/15/17 05:30 Est GFR ( Amer) > 60 03/15/17 05:30 Est GFR (Non-Af Amer) > 60 03/15/17 05:30 Random Glucose 98 mg/dL (70-110) 03/15/17 05:30 Calcium 8.6 mg/dL (8.4-10.5) 03/15/17 05:30 Phosphorus 3.1 mg/dL (2.5-4.5) 03/13/17 08:09 Magnesium 1.9 mg/dL (1.7-2.2) 03/13/17 08:09 Iron 90 ug/dL (45-180) 03/13/17 07:00 TIBC 254 ug/dL (261-462) L 03/13/17 07:00 % Saturation 35 % (20-55) 03/13/17 07:00 Ferritin 285.0 ng/mL 03/13/17 08:09 Total Bilirubin 1.1 mg/dL (0.2-1.3) 03/15/17 05:30 AST 178 U/L (15-59) H 03/15/17 05:30 ALT 72 U/L (7-56) H 03/15/17 05:30 Alkaline Phosphatase 211 U/L (38-133) H 03/15/17 05:30 Total Protein 6.8 g/dL (5.8-8.3) 03/15/17 05:30 Albumin 3.5 g/dL (3.0-4.8) 03/15/17 05:30 Globulin 3.3 gm/dL 03/15/17 05:30 Albumin/Globulin Ratio 1.0 (1.1-1.8) L 03/15/17 05:30 Lipase 12 U/L (23-300) L 03/12/17 22:00 Vitamin B12 291 pg/mL (239-931) 03/13/17 08:09 25-OH Vitamin D Total < 12.8 NG/ML (30.0-100.0) L 03/13/17 08:09 Folate 19.9 ng/mL 03/13/17 08:09 Urine Color Dark yellow (YELLOW) 03/13/17 00:30 Urine Appearance Sl cloudy (CLEAR) 03/13/17 00:30 Urine pH 6.0 (4.7-8.0) 03/13/17 00:30 Ur Specific [place] >= 1.030 (1.005-1.035) 03/13/17 00:30 Urine Protein 100 mg/dL (<30 mg/dL) H 03/13/17 00:30 Urine Glucose (UA) Negative mg/dL (NEGATIVE) 03/13/17 00:30 Urine Ketones 15 mg/dL (NEGATIVE) H 03/13/17 00:30 Urine Blood Negative (NEGATIVE) 03/13/17 00:30 Urine Nitrate Negative (NEGATIVE) 03/13/17 00:30 Urine Bilirubin Small (NEGATIVE) H 03/13/17 00:30 Urine Urobilinogen 1.0 E.U./dL (<1 E.U./dL) H 03/13/17 00:30 Ur Leukocyte Esterase Negative Eliana/uL (NEGATIVE) 03/13/17 00:30 Urine RBC 0 - 2 /hpf (0-2) 03/13/17 00:30 Urine WBC 0 - 2 /hpf (0-6) 03/13/17 00:30 Ur Epithelial Cells 3 - 4 /hpf (0-5) 03/13/17 00:30 Urine Bacteria Rare (NEG) 03/13/17 00:30 Urine Opiates Screen Positive (NEGATIVE) H 03/13/17 02:30 Urine Methadone Screen Negative (NEGATIVE) 03/13/17 02:30 Ur Barbiturates Screen Negative (NEGATIVE) 03/13/17 02:30 Ur Phencyclidine Scrn Negative (NEGATIVE) 03/13/17 02:30 Ur Amphetamines Screen Negative (NEGATIVE) 03/13/17 02:30 U Benzodiazepines Scrn Negative (NEGATIVE) 03/13/17 02:30 U Oth Cocaine Metabols Negative (NEGATIVE) 03/13/17 02:30 U Cannabinoids Screen Negative (NEGATIVE) 03/13/17 02:30 Alcohol, Quantitative 72 mg/dL (0-10) H 03/12/17 22:00 - Hospital Course Hospital Course: 41 year old male, with a past medical history of chronic pancreatitis and alcohol abuse, presented complaining of diffuse abdominal pain, namely in the lower quadrants with one bout of vomiting and diarrhea. A CT abdomen and pelvis showed patient to have rectosigmoid colitis. He was started on Cipro and Flagyl and IVF. ID and GI were consulted. Patient was started on NS at 110mls/hr as well as scheduled and PRN doses of ativan along with CIWA and alcohol withdrawal protocols. He was started on morphine for pain control. Patients diet was advanced as tolerated. Patient was treated for three days with IV antibiotics and discharged on 03/15 on PO augmentin and flagyl as well as chlorthalidone for blood pressure, which was found to be elevated during his admission. He was also instructed to schedule follow up with a PMD. - Date & Time of H&P Date of H&P: 03/13/17 Time of H&P: 02:08 Discharge Exam - Head Exam Head Exam: ATRAUMATIC, NORMOCEPHALIC - Eye Exam Eye Exam: EOMI, Normal appearance, PERRL Pupil Exam: NORMAL ACCOMODATION - ENT Exam ENT Exam: Mucous Membranes Moist - Neck Exam Neck exam: Full Rom - Respiratory Exam Respiratory Exam: NORMAL BREATHING PATTERN, UNREMARKABLE - Cardiovascular Exam Cardiovascular Exam: REGULAR RHYTHM, RRR - GI/Abdominal Exam GI & Abdominal Exam: Normal Bowel Sounds, Unremarkable. absent: Distended, Firm , Guarding, Tenderness - Exam Exam: absent: Bladder Distension - Extremities Exam Extremities exam: normal capillary refill, normal inspection, pedal edema - Back Exam Back exam: NORMAL INSPECTION. absent: paraspinal tenderness, vertebral tenderness - Neurological Exam Neurological exam: Alert, Normal Gait, Oriented x3 - Psychiatric Exam Psychiatric exam: Normal Affect, Normal Mood - Skin Skin Exam: Dry, Intact, Normal Color, Warm Discharge Plan - Discharge Medications Prescriptions: Amoxicillin/Clavulanate [Augmentin 500 MG-125 MG] 1 tab PO BID #14 tab Chlorthalidone [Hygroton] 25 mg PO DAILY #14 tab metroNIDAZOLE [Flagyl] 500 mg PO Q8 #21 tab - Follow Up Plan Condition: FAIR Disposition: HOME/ ROUTINE Instructions: Irritable Bowel Syndrome (DC), Hypokalemia (DC), Acute Abdominal Pain (DC) Additional Instructions: 1. Please follow up with your PMD within 1-2 weeks for a CMP to measure your potassium. Your new medication for blood pressure can cause low potassium and this needs to be checked. 2. Please take all medications as prescribed. 3. If your symptoms should worsen or persist, please seek emergency medical attention. Referrals: Sheng Cole MD [Primary Care Provider] - <Benson Florez - Last Filed: 03/18/17 14:22> Provider - Provider Date of Admission: 03/14/17 13:02 Attending physician: Benson Florez MD Primary care physician: Sheng Cole MD Hospital Course - Lab Results Lab Results: Most Recent Lab Values WBC 2.6 10^3/ul (4.5-11.0) L* 03/15/17 05:30 RBC 3.17 10^6/uL (3.5-6.1) L 03/15/17 05:30 Hgb 11.0 g/dL (14.0-18.0) L 03/15/17 05:30 Hct 33.7 % (42.0-52.0) L 03/15/17 05:30 MCV 106.3 fl (80.0-105.0) H 03/15/17 05:30 MCH 34.7 pg (25.0-35.0) 03/15/17 05:30 MCHC 32.6 g/dl (31.0-37.0) 03/15/17 05:30 RDW 15.2 % (11.5-14.5) H 03/15/17 05:30 Plt Count 75 10^3/uL (120.0-450.0) L 03/15/17 05:30 MPV 10.6 fl (7.0-11.0) 03/15/17 05:30 Gran % 56.8 % (50.0-68.0) 03/15/17 05:30 Lymph % (Auto) 31.8 % (22.0-35.0) 03/15/17 05:30 [place] % (Auto) 10.2 % (1.0-6.0) H 03/15/17 05:30 Eos % (Auto) 0.8 % (1.5-5.0) L 03/15/17 05:30 Baso % (Auto) 0.4 % (0.0-3.0) 03/15/17 05:30 Gran # 1.50 (1.4-6.5) 03/15/17 05:30 Lymph # 0.8 (1.2-3.4) L 03/15/17 05:30 [place] # 0.3 (0.1-0.6) 03/15/17 05:30 Eos # 0.0 (0.0-0.7) 03/15/17 05:30 Baso # 0.01 K/mm3 (0.0-2.0) 03/15/17 05:30 PT 12.0 Seconds (9.9-11.8) H 03/13/17 11:00 INR 1.11 (0.93-1.08) H 03/13/17 11:00 Sodium 137 mmol/L (132-148) 03/15/17 05:30 Potassium 4.2 mmol/L (3.6-5.0) 03/15/17 05:30 Chloride 100 mmol/L (95-110) 03/15/17 05:30 Carbon Dioxide 29 mmol/L (21-33) 03/15/17 05:30 Anion Gap 12 (10-20) 03/15/17 05:30 BUN < 2 mg/dL (7-21) L 03/15/17 05:30 Creatinine 0.6 mg/dL (0.5-1.4) 03/15/17 05:30 Est GFR ( Amer) > 60 03/15/17 05:30 Est GFR (Non-Af Amer) > 60 03/15/17 05:30 Random Glucose 98 mg/dL (70-110) 03/15/17 05:30 Calcium 8.6 mg/dL (8.4-10.5) 03/15/17 05:30 Phosphorus 3.1 mg/dL (2.5-4.5) 03/13/17 08:09 Magnesium 1.9 mg/dL (1.7-2.2) 03/13/17 08:09 Iron 90 ug/dL (45-180) 03/13/17 07:00 TIBC 254 ug/dL (261-462) L 03/13/17 07:00 % Saturation 35 % (20-55) 03/13/17 07:00 Ferritin 285.0 ng/mL 03/13/17 08:09 Total Bilirubin 1.1 mg/dL (0.2-1.3) 03/15/17 05:30 AST 178 U/L (15-59) H 03/15/17 05:30 ALT 72 U/L (7-56) H 03/15/17 05:30 Alkaline Phosphatase 211 U/L (38-133) H 03/15/17 05:30 Total Protein 6.8 g/dL (5.8-8.3) 03/15/17 05:30 Albumin 3.5 g/dL (3.0-4.8) 03/15/17 05:30 Globulin 3.3 gm/dL 03/15/17 05:30 Albumin/Globulin Ratio 1.0 (1.1-1.8) L 03/15/17 05:30 Lipase 12 U/L (23-300) L 03/12/17 22:00 Vitamin B12 291 pg/mL (239-931) 03/13/17 08:09 25-OH Vitamin D Total < 12.8 NG/ML (30.0-100.0) L 03/13/17 08:09 Folate 19.9 ng/mL 03/13/17 08:09 Urine Color Dark yellow (YELLOW) 03/13/17 00:30 Urine Appearance Sl cloudy (CLEAR) 03/13/17 00:30 Urine pH 6.0 (4.7-8.0) 03/13/17 00:30 Ur Specific [place] >= 1.030 (1.005-1.035) 03/13/17 00:30 Urine Protein 100 mg/dL (<30 mg/dL) H 03/13/17 00:30 Urine Glucose (UA) Negative mg/dL (NEGATIVE) 03/13/17 00:30 Urine Ketones 15 mg/dL (NEGATIVE) H 03/13/17 00:30 Urine Blood Negative (NEGATIVE) 03/13/17 00:30 Urine Nitrate Negative (NEGATIVE) 03/13/17 00:30 Urine Bilirubin Small (NEGATIVE) H 03/13/17 00:30 Urine Urobilinogen 1.0 E.U./dL (<1 E.U./dL) H 03/13/17 00:30 Ur Leukocyte Esterase Negative Eliana/uL (NEGATIVE) 03/13/17 00:30 Urine RBC 0 - 2 /hpf (0-2) 03/13/17 00:30 Urine WBC 0 - 2 /hpf (0-6) 03/13/17 00:30 Ur Epithelial Cells 3 - 4 /hpf (0-5) 03/13/17 00:30 Urine Bacteria Rare (NEG) 03/13/17 00:30 Urine Opiates Screen Positive (NEGATIVE) H 03/13/17 02:30 Urine Methadone Screen Negative (NEGATIVE) 03/13/17 02:30 Ur Barbiturates Screen Negative (NEGATIVE) 03/13/17 02:30 Ur Phencyclidine Scrn Negative (NEGATIVE) 03/13/17 02:30 Ur Amphetamines Screen Negative (NEGATIVE) 03/13/17 02:30 U Benzodiazepines Scrn Negative (NEGATIVE) 03/13/17 02:30 U Oth Cocaine Metabols Negative (NEGATIVE) 03/13/17 02:30 U Cannabinoids Screen Negative (NEGATIVE) 03/13/17 02:30 Alcohol, Quantitative 72 mg/dL (0-10) H 03/12/17 22:00 Attending/Attestation - Attestation I have personally seen and examined this patient.: Yes I have fully participated in the care of the patient.: Yes I have reviewed all pertinent clinical information, including history, physical exam and plan: Yes Notes (Text): I have seen and examined the patient at bedside. Agree with the above note with the following additions/ exceptions: Briefly this is 41 year old male with history of chronic pancreatitis and alcohol abuse who was admitted with acute colitis. He is on cipro and flagyl. Tolerating diet. He denies any symptoms of alcohol withdrawal. Patient is homeless however does not want to go to residential. Upon discharge patient will go to Dr Cruz Patricio. Dr Benson Florez
== END 2017-03-15 15:53 | disposition home or self-care (01) | DRG 813 ==
LOC: ED 21:01 → ERH 03-13 01:42 → 2RNO 03-13 04:13 → OBSVTOIN 03-14 13:02 → 2RSO 03-14 20:56
PROVIDERS: ADMIT Internal Medicine; ATTEND Hospitalist
DX: K52.9 Noninfective gastroenteritis and colitis, unspecified (principal); E87.6 Hypokalemia; F10.239 Alcohol dependence with withdrawal, unspecified; D61.818 Other pancytopenia; K86.1 Other chronic pancreatitis; E83.42 Hypomagnesemia; K76.0 Fatty (change of) liver, not elsewhere classified; F17.210 Nicotine dependence, cigarettes, uncomplicated; K70.10 Alcoholic hepatitis without ascites; Y90.3 Blood alcohol level of 60-79 mg/100 ml; Z80.0 Family history of malignant neoplasm of digestive organs; Z59.0 Homelessness

== ENCOUNTER 2017-04-15 02:02 | Observation (INO) | payer MEDICAID ==
[2017-04-15 02:03] VITALS: BMI 21.5
[2017-04-15 02:18] VITALS: RESP 18
--- NOTE | 2017-04-15 02:34 | ED PDOC ---
Arrival/HPI - General Chief Complaint: Back Pain Time Seen by Provider: 04/15/17 02:28 Historian: Patient - History of Present Illness Narrative History of Present Illness (Text): 04/15/17 02:34 Felix Glasgow is a 41 year old male, whose past medical history includes pancreatitis and alcohol abuse, who presents to the ED complaining of LUQ abdominal pain tonight. Patient reports associated nausea with multiple episodes of vomiting. Patient denies any fever, chills, chest pain, shortness of breath, diarrhea, urinary symptoms, back pain, neck pain, headache, dizziness , or any other complaints. Symptom Onset: Gradual Symptom Course: Unchanged Activities at Onset: Light Context: Home Past Medical History - Provider Review Nursing Documentation Reviewed: Yes - Infectious Disease Hx of Infectious Diseases: None - Tetanus Immunization Tetanus Immunization: Unknown - Past Medical History Past Medical History: No Previous - Cardiac Hx Cardiac Disorders: No - Pulmonary Hx Respiratory Disorders: No Hx Tuberculosis: No - Neurological Hx Neurological Disorder: No Hx Seizures: No - HEENT Hx HEENT Disorder: No - Renal Hx Renal Disorder: No - Endocrine/Metabolic Hx Endocrine Disorders: No - Hematological/Oncological Hx Blood Disorders: No - Integumentary Hx Dermatological Disorder: No - Musculoskeletal/Rheumatological Hx Falls: No - Gastrointestinal Hx Gastroesophageal Reflux: Yes Hx Pancreatitis: Yes - Genitourinary/Gynecological Hx Genitourinary Disorders: No Hx Sexually Transmitted Diseases: No - Psychiatric Hx Psychophysiologic Disorder: No Hx Substance Use: Yes - Past Surgical History Past Surgical History: No Previous - Surgical History Hx Amputation: No Hx Appendectomy: No Hx Cardiac Catheterization: No Hx Cholecystectomy: No Hx Coronary Stent: No Hx Gastric Bypass Surgery: No Hx Hysterectomy: No Hx Joint Replacement: No Hx Kidney Transplant: No Hx Liver Transplant: No Hx Mastectomy: No Hx Musculoskeletal Surgery: No Hx Open Heart Surgery: No Hx Orthopedic Surgery: No Hx Splenectomy: No Hx Valve Replacement: No - Anesthesia Hx Anesthesia: No Hx Anesthesia Reactions: No - Suicidal Assessment Feels Threatened In Home Enviroment: No Family/Social History - Physician Review Nursing Documentation Reviewed: Yes Family/Social History: Unknown Family HX Smoking Status: Heavy Smoker > 10 Cigarettes Daily Hx Alcohol Use: Yes Amount per day: 24 Hx Substance Use: Yes Allergies/Home Meds Allergies/Adverse Reactions: Allergies No Known Allergies Allergy (Verified 03/12/17 21:13) Home Medications: Home Meds Medication Instructions Recorded Confirmed No Known Home Med 04/15/17 04/15/17 Review of Systems - Physician Review All systems were reviewed & negative as marked: Yes - Review of Systems Constitutional: Normal. absent: Fevers Eyes: Normal ENT: Normal Respiratory: Normal. absent: SOB, Cough Cardiovascular: Normal. absent: Chest Pain Gastrointestinal: Abdominal Pain, Nausea, Vomiting. absent: Diarrhea Genitourinary Male: Normal. absent: Dysuria, Frequency, Hematuria, Urinary Output Changes Musculoskeletal: Normal. absent: Back Pain, Neck Pain Skin: Normal. absent: Rash Neurological: Normal. absent: Headache, Dizziness Endocrine: Normal Hemo/Lymphatic: Normal Psychiatric: Normal Physical Exam Vital Signs Reviewed: Yes Vital Signs Temp Pulse Resp BP Pulse Ox 04/15/17 02:15 98.1 F 64 18 192/62 H 99 Temperature: Afebrile Blood Pressure: Hypertensive Pulse: Regular Respiratory Rate: Normal Appearance: Positive for: Well-Appearing, Non-Toxic, Comfortable Pain Distress: None Mental Status: Positive for: Alert and Oriented X 3 - Systems Exam Head: Present: Atraumatic, Normocephalic Pupils: Present: PERRL Extroacular Muscles: Present: EOMI Conjunctiva: Present: Normal Mouth: Present: Moist Mucous Membranes Neck: Present: Normal Range of Motion Respiratory/Chest: Present: Clear to Auscultation, Good Air Exchange. No: Respiratory Distress, Accessory Muscle Use Cardiovascular: Present: Regular Rate and Rhythm, Normal S1, S2. No: Murmurs Abdomen: Present: Normal Bowel Sounds. No: Tenderness, Distention, Peritoneal Signs Back: Present: Normal Inspection Upper Extremity: Present: Normal Inspection. No: Cyanosis, Edema Lower Extremity: Present: Normal Inspection. No: Edema Neurological: Present: GCS=15, CN II-XII Intact, Speech Normal Skin: Present: Warm, Dry, Normal Color. No: Rashes Psychiatric: Present: Alert, Oriented x 3, Normal Insight, Normal Concentration Medical Decision Making ED Course and Treatment: 04/15/17 02:34 Impression: 41 year old male c/o LUQ pain, nausea, and vomiting tonight. Plan: -- EKG -- CT Abdomen and Pelvis -- Labs, lipase -- IV fluids -- Zofran -- Toradol -- Duoneb -- Reassess and disposition Progress Notes: Reviewed EKG, NSR at 66 bpm. LVH. No acute changes. 04/15/17 05:30 Reviewed radiology, CT Abdomen and Pelvis shows: The liver is decreased in attenuation consistent with fatty infiltration. The spleen is normal. Stable pancreatic calcification supportive of chronic pancreatitis No gallstones. No hydronephrosis or perinephric stranding. The stomach is distended with fluid. The small bowel appears normal. No evidence of appendicitis. Moderate amount of stool in the rectum. IMPRESSION: Moderate amount of rectal stool. 04/15/17 05:[address] Rivers, medical insurance verifier apprenticeship consultant, who is aware and agrees with plan. Case discussed with Dr. Stringer, who is aware and agrees with plan. Accepts pt in to hospitalist service. [facility] go to [facility] observation for abdominal pain. Pt is no acute distress. Discussed results and hospital observation plan with pt , who is aware and verbalizes understanding. - Lab Interpretations Lab Results: 04/15/17 02:55 04/15/17 02:55 Lab Results 04/15/17 02:55: WBC 5.2 D, RBC 3.20 L, Hgb 11.0 L, Hct 33.0 L, MCV 103.1 D, MCH 34.4, MCHC 33.3, RDW 15.3 H, Plt Count 77 L, MPV 10.5 04/15/17 02:55: Sodium 137, Potassium 3.2 L, Chloride 93 L, Carbon Dioxide 33, Anion Gap 14, BUN 5 L, Creatinine 0.6, Est GFR ( Amer) > 60, Est GFR (Non -Af Amer) > 60, Random Glucose 111 H, Calcium 9.2, Total Bilirubin 3.9 H, AST 1935 H, ALT 239 H, Alkaline Phosphatase 372 H, Total Protein 7.8, Albumin 4.3, Globulin 3.5, Albumin/Globulin Ratio 1.2, Lipase 43 I have reviewed the lab results: Yes - RAD Interpretation Radiology Orders: 04/15/17 04:11 ABD & PELVIS IV CONTRAST ONLY [CT] Stat Laborer Driver: Radiologist - EKG Interpretation Interpreted by ED Physician: Yes Type: 12 lead EKG - Medication Orders Current Medication Orders: Morphine Sulfate (Morphine) 2 mg IVP STAT STA Stop: 04/15/17 05:35 Discontinued Medications Sodium Chloride (Sodium Chloride 0.9%) 1,000 mls @ 999 mls/hr IV .Q1H1M STA Stop: 04/15/17 03:43 Last Admin: 04/15/17 03:02 Dose: 999 mls/hr eMAR Start Stop Document 04/15/17 03:02 LAVERNE (Rec: 04/15/17 03:02 [id number] Intravenous Solution Start Date 04/15/17 Start Time 03:02 Iohexol (Omnipaque 350 100 Ml) Confirm Administered Dose 350 mg .ROUTE .STK-MED ONE Stop: 04/15/17 04:16 Ketorolac Tromethamine (Toradol) 30 mg IVP ONCE ONE Stop: 04/15/17 02:44 Last Admin: 04/15/17 03:01 Dose: 30 mg MAR Pain Assessment Document 04/15/17 03:01 Dayron (Rec: 04/15/17 03:01 [id number] Pain Reassessment Is this a pain reassessment? No Sleep Is patient sleeping during reassessment? No Presence of Pain Presence of Pain Yes Pain Scale Used Pain Scale Used Numeric Location Pain Location Body Site Abdomen Description Description Chronic Intensity of Pain at present 6 Acceptable Level of Pain 0 Pain Behavior Rubbing Site Aggravating Factors ADL's IVP Administration Document 04/15/17 03:01 LAVERNE (Rec: 04/15/17 03:01 [id number] Charges for Administration # of IVP Administrations 1 Ondansetron HCl (Zofran Inj) 4 mg IVP ONCE ONE Stop: 04/15/17 02:44 Last Admin: 04/15/17 03:01 Dose: 4 mg IVP Administration Document 04/15/17 03:01 Dayron (Rec: 04/15/17 03:01 [id number] Charges for Administration # of IVP Administrations 1 Potassium Chloride (K-Dur 20 Meq Er Tab) 40 meq PO STAT STA Stop: 04/15/17 04:12 Last Admin: 04/15/17 04:27 Dose: 40 meq - Scribe Statement The provider has reviewed the documentation as recorded by the Scribe Catherine Zhou All medical record entries made by the Scribe were at my direction and personally dictated by me. I have reviewed the chart and agree that the record accurately reflects my personal performance of the history, physical exam, medical decision making, and the department course for this patient. I have also personally directed, reviewed, and agree with the discharge instructions and disposition. Disposition/Present on Arrival - Present on Arrival Any Indicators Present on Arrival: No History of DVT/PE: No History of Uncontrolled Diabetes: No Urinary Catheter: No History of Decub. Ulcer: No History Surgical Site Infection Following: None - Disposition Have Diagnosis and Disposition been Completed?: Yes Diagnosis: Abdominal pain Disposition: HOSPITALIZED Disposition Time: 05:37 Patient Plan: Observation Condition: STABLE Forms: [employer] (Mongolian)
[2017-04-15] MEDS ORDERED: Albuterol-Ipratrop 3 mg / 0.5 (3 ml) UD IH STA (02:36)
[2017-04-15] MEDS ORDERED: Sodium Chloride 0.9% 1,000 ML IV STA (02:43)
[2017-04-15 03:21] LABS: MEAN CELL VOLUME 103.1 fl (80.0-105.0); MEAN CORPUSCULAR HEMOGLOBIN 34.4 pg (25.0-35.0); MEAN CORPUSCULAR HGB CONC 33.3 g/dl (31.0-37.0); MEAN PLATELET VOLUME 10.5 fl (7.0-11.0); RED CELL DISTRIBUTION WIDTH 15.3 % (11.5-14.5); WHITE BLOOD COUNT 5.2 10^3/ul (4.5-11.0)
[2017-04-15 03:31] LABS: ALB/GLOB RATIO 1.2 (1.1-1.8); ALKALINE PHOSPHATASE 372 U/L (38-126); ALT/SGPT 239 U/L (7-56); BILIRUBIN,TOTAL 3.9 mg/dL (0.2-1.3); BLOOD UREA NITROGEN 5 mg/dL (7-21); CALCIUM 9.2 mg/dL (8.4-10.5); CARBON DIOXIDE 33 mmol/L (21-33); CHLORIDE 93 mmol/L (98-107); GFR AFRICAN-AMERICAN > 60; GLUCOSE,RANDOM 111 mg/dL (70-110); LIPASE 43 U/L (23-300); POTASSIUM 3.2 mmol/L (3.6-5.0); SODIUM 137 mmol/L (132-148); TOTAL PROTEIN 7.8 g/dL (5.8-8.3)
[2017-04-15 03:47] LABS: AST/SGOT 1935 U/L (17-59)
[2017-04-15] MEDS ORDERED: Potassium Chloride 20 mEq ER Tab PO STA (04:11)
[2017-04-15] MEDS ORDERED: Iohexol 350 MG/100 ML VIAL ONE (04:15)
--- NOTE | 2017-04-15 05:26 | CT ---
EXAM: CT Abdomen and Pelvis With Intravenous Contrast EXAM DATE/TIME: 04/15/2017 4:11 AM CLINICAL HISTORY: 41 years old, male; Pain; Abdominal pain; Generalized TECHNIQUE: Axial computed tomography images of the abdomen and pelvis with intravenous contrast. All CT scans at this facility use one or more dose reduction techniques, viz.: automated exposure control; ma/kV adjustment per patient size (including targeted exams where dose is matched to indication; i.e. head); or iterative reconstruction technique. Coronal and sagittal reformatted images were created and reviewed. CONTRAST: 96 mL of omni 350 administered intravenously. COMPARISON: CT - ABD PELVIS IV CONTRAST ONLY 03/13/2017 12:21:02 AM FINDINGS: The liver is decreased in attenuation consistent with fatty infiltration. The spleen is normal. Stable pancreatic calcification supportive of chronic pancreatitis No gallstones. No hydronephrosis or perinephric stranding. The stomach is distended with fluid. The small bowel appears normal. No evidence of appendicitis. Moderate amount of stool in the rectum. IMPRESSION: Moderate amount of rectal stool.
[2017-04-15] MEDS ORDERED: Morphine 2 mg/ml ISec IVP STA (05:34)
--- NOTE | 2017-04-15 06:59 | CT ---
EXAM: CT Head Without Intravenous Contrast EXAM DATE/TIME: 04/15/2017 6:35 AM CLINICAL HISTORY: 41 years old, male; Signs and symptoms; Dizziness; Additional info: Dizzy TECHNIQUE: Axial computed tomography images of the head/brain without intravenous contrast. All CT scans at this facility use one or more dose reduction techniques, viz.: automated exposure control; ma/kV adjustment per patient size (including targeted exams where dose is matched to indication; i.e. head); or iterative reconstruction technique. COMPARISON: CT - HEAD W/O CONTRAST 11/15/2016 4:03:37 PM FINDINGS: Numerous calcifications are present along the falx and tentorium similar to prior. No intracranial hemorrhage. No intracranial edema. No evidence of infarct. The sinuses and mastoid air cells are clear. IMPRESSION: No acute findings.
[2017-04-15] MEDS ORDERED: Sodium Chloride 0.9% 1,000 ML IV SCH (07:00)
--- NOTE | 2017-04-15 07:06 | CP.PCM.HP ---
History of Present Illness - History of Present Illness History of Present Illness: Patient was seen in the ER when he was in [facility] room. This 41 year old male came to ER from home,states that he was home, got up to get some water, felt dizzy, almost fell, had sharp left flank, left upper quadrant pain, threw up once, had blurry vision, so he came to ER.Has no other complaints.Denies chest pain,sob, palpitations, fever, chills, diarrhoea, dysuria, weakness, paraesthesia.States that he has been drinking beer last week. ALLERGIES:Denies. PMH:Hypertension-2 years. ETOH-5 years. PAST SURGICAL HISTORY:Denies. FH:Mother -DM, colon cancer. Hypertension in the family. SOCIAL HISTORY:Smoking-1/2 PPD x 5 years. ETOH- drinks beer daily . DRUGS- Sniffed cocaine , last time 5 years ago. HOME MEDS:Denies. PMD:None. ROS:13 point review of systems is negative except as mentioned above. Present on Admission - Present on Admission Any Indicators Present on Admission: No History of DVT/PE: No History of Uncontrolled Diabetes: No Urinary Catheter: No Decubitus Ulcer Present: No Review of Systems - Review of Systems All systems: reviewed and no additional remarkable complaints except (as mentioned in HPI.) Past Patient History - Infectious Disease Hx of Infectious Diseases: None - Tetanus Immunizations Tetanus Immunization: Unknown - Past Social History Smoking Status: Heavy Smoker > 10 Cigarettes Daily - CARDIAC Hx Cardiac Disorders: No - PULMONARY Hx Respiratory Disorders: No Hx Tuberculosis: No - NEUROLOGICAL Hx Neurological Disorder: No Hx Seizures: No - HEENT Hx HEENT Problems: No - RENAL Hx Chronic Kidney Disease: No - ENDOCRINE/METABOLIC Hx Endocrine Disorders: No - HEMATOLOGICAL/ONCOLOGICAL Hx Blood Disorders: No - INTEGUMENTARY Hx Dermatological Problems: No - MUSCULOSKELETAL/RHEUMATOLOGICAL Hx Falls: No - GASTROINTESTINAL Hx Gastroesophageal Reflux: Yes Hx Pancreatitis: Yes - GENITOURINARY/GYNECOLOGICAL Hx Genitourinary Disorders: No Hx Sexually Transmitted Disorders: No - PSYCHIATRIC Hx Psychophysiologic Disorder: No Hx Substance Use: Yes - SURGICAL HISTORY Hx Amputation: No Hx Appendectomy: No Hx Cardiac Catheterization: No Hx Cholecystectomy: No Hx Coronary Stent: No Hx Gastric Bypass Surgery: No Hx Hysterectomy: No Hx Joint Replacement: No Hx Kidney Transplant: No Hx Liver Transplant: No Hx Mastectomy: No Hx Musculoskeletal Surgery: No Hx Open Heart Surgery: No Hx Orthopedic Surgery: No Hx Splenectomy: No Hx Valve Replacement: No - ANESTHESIA Hx Anesthesia: No Hx Anesthesia Reactions: No Meds Allergies/Adverse Reactions: Allergies Allergy/AdvReac Type Severity Reaction Status Date / Time No Known Allergies Allergy Verified 03/12/17 21:13 Physical Exam - Constitutional Appears: Well, No Acute Distress - Head Exam Head Exam: ATRAUMATIC, NORMAL INSPECTION, NORMOCEPHALIC - Eye Exam Eye Exam: Normal appearance - ENT Exam ENT Exam: Normal External Ear Exam - Neck Exam Neck exam: Positive for: Normal Inspection - Respiratory Exam Respiratory Exam: Clear to Auscultation Bilateral, NORMAL BREATHING PATTERN. absent: Rales, Rhonchi, Wheezes, Respiratory Distress, Stridor - Cardiovascular Exam Cardiovascular Exam: REGULAR RHYTHM, +S1 (Normal.), +S2 (Normal.). absent: JVD - GI/Abdominal Exam GI & Abdominal Exam: Diminished Bowel Sounds, Normal Bowel Sounds, Soft (Yes.). absent: Bruit, Distended, Firm, Guarding, Hernia, Mass, Organomegaly, Pulsatile Mass, Rebound, Rigid, Tenderness - Rectal Exam Rectal Exam: Deferred - Exam Additional comments: Deferred. - Extremities Exam Extremities exam: Positive for: normal inspection - Back Exam Back exam: NORMAL INSPECTION - Neurological Exam Neurological exam: Alert, Oriented x3 - Psychiatric Exam Psychiatric exam: Normal Affect, Normal Mood - Skin Skin Exam: Normal Color Results - Vital Signs Recent Vital Signs: Last Vital Signs Temp 98.1 F 04/15/17 06:10 Pulse 84 04/15/17 06:10 Resp 18 04/15/17 06:10 BP 168/88 H 04/15/17 06:10 Pulse Ox 99 04/15/17 06:10 - Labs Result Diagrams: 04/15/17 02:55 04/15/17 02:55 - Imaging and Cardiology CT scan - abdomen Status: Report reviewed by me (Fatty liver, chronic pancreatitis, calcification , moderate rectal stool.) Assessment & Plan - Assessment and Plan (Free Text) Assessment: Dizziness: CT Head. Neurocheck. EKG. Abdominal pain-Flank/LUQ.Chronic pancreatitis. -NPO. -anlagesic. -antiemetic. HTN. Monitor. Chronic pancreatitis.- F/U amylase, lipase. -NPO. -Analgesics. Tobacco dependence- Advised to stop smoking. Cocaine abuse- Not active. GI/DVT prophylaxis. Anemia/thrombocytopenia-Can be worked up as out patient. Alcohol abuse- Seizure precaution. -Serum alcohol level. -Ativan prn. -MV,thiamine, Folic acid. Hypokalemia- K supplement. Plan: As above. - Date & Time Date: 04/15/17 Time: 07:17
[2017-04-15 09:27] LABS: BLOOD UREA NITROGEN 4 mg/dL (7-21); CALCIUM 9.4 mg/dL (8.4-10.5); CARBON DIOXIDE 31 mmol/L (21-33); CHLORIDE 91 mmol/L (95-110); GFR AFRICAN-AMERICAN > 60; GLUCOSE,RANDOM 97 mg/dL (70-110); MAGNESIUM 1.5 mg/dL (1.7-2.2); PHOSPHOROUS 2.9 mg/dL (2.5-4.5); POTASSIUM 3.6 mmol/L (3.6-5.0); SODIUM 137 mmol/L (132-148)
[2017-04-15] MEDS: Multivitamin Therapeutic Tab PO SCH (10:22)
--- NOTE | 2017-04-15 11:49 | CARD ---
APPROVED REPORT EKG Measurement Heart [id number] <Conclusion> Normal sinus rhythm with sinus arrhythmia Voltage criteria for left ventricular hypertrophy Probable V2 / V6 lead reversal
[2017-04-15] MEDS ORDERED: Magnesium Sulfate 2 GM in Sodium Chloride 0.9% 100 ML IVPB ONE (12:01)
[2017-04-15 12:02] LABS: TROPONIN I 0.03 ng/mL
[2017-04-15] MEDS: Folic Acid 1 MG, Thiamine 100 MG, Multivitamin (MVI) 10 ML in Dextrose 5% In Water 1,00... IV SCH (13:10)
[2017-04-15] MEDS ORDERED: Metoprolol 1 mg/ml Inj IVP STA (13:51)
--- NOTE | 2017-04-15 14:50 | CARD ---
APPROVED REPORT EKG Measurement Heart [id number] [place] [id number] [id number] <Conclusion> Sinus bradycardia Voltage criteria for left ventricular hypertrophy Prolonged QT
[2017-04-15 16:43] LABS: PH,URINE 6.5 (4.7-8.0); URINE BILIRUBIN MODERATE (NEGATIVE); URINE BLOOD TRACE-INTACT (NEGATIVE); URINE GLUCOSE (UA) NEGATIVE (NEGATIVE); URINE KETONE >=80 mg/dL (NEGATIVE); URINE LEUKOCYTE ESTERASE NEGATIVE Leu/uL (NEGATIVE); URINE PROTEIN 100 mg/dL (<30 mg/dL)
[2017-04-15 16:54] LABS: URINE APPEARANCE CLEAR (CLEAR); URINE COLOR DARK YELLOW (YELLOW)
[2017-04-15] MEDS ORDERED: Pneumococcal 23-Valent Vaccine IM ONE (16:58)
[2017-04-15 17:04] LABS: URINE RBC 0 - 2 /hpf (0-2)
[2017-04-15 17:05] LABS: URINE BACTERIA FEW (NEG); URINE WBC 0 - 2 /hpf (0-6)
[2017-04-15] MEDS: POLYETHYLENE GLYCOL 3350 17 GM/Dose PACKET PO SCH (18:09)
--- NOTE | 2017-04-16 01:45 | CON ---
DATE: 04/15/2017 REASON FOR CONSULTATION: Cardiac evaluation, ST-T changes, and abnormal EKG. BRIEF CLINICAL HISTORY: This 41-year-old male with active tobacco abuse, active alcohol abuse admitted because of feeling dizzy, off balance, and history of heavy alcohol abuse. Denies any chest pain or shortness of breath. Denies any palpitations. PAST MEDICAL HISTORY: Nothing significant. SOCIAL HISTORY: Active tobacco abuse. Active alcohol abuse. Drinks three cases everyday of hard liquor. Drinks half pack to quarter pack for more than 10 years. PAST SURGICAL HISTORY: Nothing significant. FAMILY HISTORY: No significant history of coronary artery disease. REVIEW OF SYSTEMS: As per HPI. PHYSICAL EXAMINATION: As follows: VITAL SIGNS: Temperature afebrile, heart rate 85, and blood pressure 172/114. HEENT: PERRLA. Extraocular muscles intact. NECK: Supple. No carotid bruits. No thyromegaly. CHEST: Clear to auscultation. HEART: S1 and S2 regular. ABDOMEN: Soft. EXTREMITIES: Clubbing and cyanosis negative. LABORATORY DATA: Blood work as follows; WBC 5.8, hemoglobin 11, hematocrit 33.0, and platelet count 77. Chemistry shows sodium 136, potassium 3.6, chloride 95, carbon dioxide 31, anion gap of 19, BUN 17, creatinine 0.6, LDH 226, troponin 0.0, and MB fraction 1. EKG shows normal sinus, early repolarization, sinus bradycardia. IMPRESSION: No acute ST abnormality noted, early repolarization. History of heavy tobacco and alcohol abuser, elevated liver enzymes secondary to alcohol abuse. Possible rhabdomyolysis, MB fraction of 1. No evidence of acute myocardial infarction. RECOMMENDATIONS: Supplement electrolytes. Continue IV fluid. Watch for DTs, aggressive control of blood pressure. Echo to assess LV function. We will follow with you. Thank you Dr. Ponce for providing opportunity in taking care of Felix Glasgow. Terra Crespo MD
[2017-04-16] MEDS: Folic Acid 1 MG, Thiamine 100 MG, Multivitamin (MVI) 10 ML in Dextrose 5% In Water 1,00... IV SCH (02:43)
--- NOTE | 2017-04-16 03:21 | CON ---
DATE: 04/15/2017 GASTROENTEROLOGY CONSULTATION REQUESTING PHYSICIAN: Dr. Florez. REASON FOR CONSULTATION: I have been asked to see this 41-year-old -Filipino male with longstanding history of alcohol abuse, chronic pancreatitis, who comes to the hospital with near syncope, dizziness associated with left flank and left upper quadrant abdominal pain with nausea and vomiting. He denies any hematemesis, melena, rectal bleeding. He states that he drank several beers last Saturday which is 3 days ago. Routine blood work showed elevated AST greater than ALT with some hyperbilirubinemia. He denies any fevers or chills. He does have a history of hypertension. PAST MEDICAL HISTORY: Notable for hypertension for several years and chronic alcohol abuse. FAMILY HISTORY: Notable for mother with diabetes mellitus and colon cancer. SOCIAL HISTORY: The patient smokes two and half pack of cigarettes for many years. He has been an alcoholic for at least the last 5 years. He has also used cocaine in the past, although he denies recent illicit drug use. REVIEW OF SYSTEMS: A 14-point review of systems is notable for left flank pain, left upper quadrant pain, near syncope, vomiting and dizziness. PHYSICAL EXAMINATION: GENERAL: Well-developed male, lying in bed, in no acute distress. VITAL SIGNS: Reveal temperature of 98.1, blood pressure 176/114, heart rate of 85. HEENT: Reveals sclerae to be white. Conjunctivae pink. NECK: Supple. CHEST: Reveal lungs to be clear. HEART: Exam reveals a regular rate and rhythm. ABDOMEN: Soft. There is mild, diffuse tenderness. There is no rebound or guarding. EXTREMITIES: Show no edema. LABORATORY DATA: Reveal normal electrolytes. Total bilirubin 3.90, AST of 1935, ALT of 239, alkaline phosphatase of 372, LDH of 2286, CK of 778. CT scan of the abdomen and pelvis showed fatty infiltration of liver with calcifications in the pancreas, consistent with chronic pancreatitis. IMPRESSION: 1. A 41-year-old male, alcoholic, admitted to the hospital with near syncope, left upper quadrant and left flank pain with known chronic pancreatitis, recent alcohol use and markedly elevated AST compared to ALT with AST of almost 2000. Approximately 1 month ago during a hospitalization, the patient's AST was as high as 459. I suspect that the elevated liver enzymes are secondary to alcoholic liver disease, but one must rule out an acute hepatitis. I doubt that this is gallstone disease as the CT scan did not show any evidence of gallstones or dilated biliary ducts. He does have a large amount of stool in the rectum. We will request a hepatitis serology to rule out an acute hepatitis, although the patient did have negative hepatitis serology over a month ago. 2. Chronic pancreatitis which may explain his left upper quadrant and left flank pain. 3. Constipation. 4. Alcohol dependence. RECOMMENDATIONS: 1. Follow liver enzymes. 2. Again, repeat hepatitis serology. 3. I will start the patient on MiraLax 17 g b.i.d. PAST MEDICAL HISTORY: Text. João Diamond MD
--- NOTE | 2017-04-16 04:48 | CP.PCM.PN ---
Subjective - Date & Time of Evaluation Date of Evaluation: 04/16/17 Objective - Vital Signs/Intake and Output Vital Signs (last 24 hours): Temp Pulse Resp BP Pulse Ox 98.7 F 60 18 150/70 100 04/16/17 00:00 04/16/17 04:23 04/16/17 00:00 04/16/17 00:00 04/16/17 00:00 - Medications Medications: Current Medications Amlodipine Besylate (Norvasc) 10 mg PO DAILY [facility] Famotidine (Pepcid) 20 mg PO DAILY [facility] Last Admin: 04/15/17 10:23 Dose: 20 mg Hydralazine HCl (Apresoline) 10 mg PO QID PRN PRN Reason: for sbp.170 Hydrochlorothiazide (Microzide) 12.5 mg PO DAILY [facility] Folic Acid 1 mg/ Thiamine HCl 100 mg/ Multivitamins/Vitamin C 10 ml/ Dextrose 1 ,011.2 mls @ 100 mls/hr IV .Q10H7M [facility] Stop: 04/16/17 14:35 Last Admin: 04/16/17 02:43 Dose: 100 mls/hr Ketorolac Tromethamine (Toradol) 30 mg IVP Q6 PRN PRN Reason: Pain, moderate (4-7) Lisinopril (Zestril) 20 mg PO DAILY [facility] Lorazepam (Ativan) 2 mg IVP Q6H PRN; Protocol PRN Reason: Anxiety Multivitamins (Thera Tab) 1 tab PO 0800 [facility] Last Admin: 04/15/17 10:22 Dose: 1 tab Ondansetron HCl (Zofran Inj) 4 mg IVP Q6 PRN PRN Reason: Nausea/Vomiting Polyethylene Glycol (Miralax) 17 gm PO BID [facility] Last Admin: 04/15/17 18:09 Dose: 17 gm - Labs Labs: 04/15/17 08:14
[2017-04-16 06:23] LABS: BASO # 0.01 K/mm3 (0.0-2.0); BASO % 0.3 % (0.0-3.0); EOS # 0.1 (0.0-0.7); EOS % 2.3 % (1.5-5.0); GRAN # 2.49 (1.4-6.5); GRAN % 63.6 % (50.0-68.0); HEMATOCRIT 35.1 % (42.0-52.0); LYMPH # 1.1 (1.2-3.4); LYMPH % 27.4 % (22.0-35.0); MEAN CELL VOLUME 103.2 fl (80.0-105.0); MEAN CORPUSCULAR HEMOGLOBIN 34.7 pg (25.0-35.0); MEAN CORPUSCULAR HGB CONC 33.6 g/dl (31.0-37.0); MEAN PLATELET VOLUME 10.9 fl (7.0-11.0); MONO # 0.3 (0.1-0.6); MONO % 6.4 % (1.0-6.0); RED CELL DISTRIBUTION WIDTH 15.4 % (11.5-14.5); WHITE BLOOD COUNT 3.9 10^3/ul (4.5-11.0)
[2017-04-16 06:42] LABS: ALB/GLOB RATIO 1.2 (1.1-1.8); ALKALINE PHOSPHATASE 328 U/L (38-126); ALT/SGPT 163 U/L (7-56); AMYLASE 62 U/L (35-125); AST/SGOT 628 U/L (17-59); BILIRUBIN,TOTAL 3.7 mg/dL (0.2-1.3); BLOOD UREA NITROGEN 3 mg/dL (7-21); CALCIUM 8.9 mg/dL (8.4-10.5); CARBON DIOXIDE 36 mmol/L (21-33); CHLORIDE 91 mmol/L (98-107); CHOLESTEROL 240 mg/dL (130-200); GFR AFRICAN-AMERICAN > 60; GLUCOSE,RANDOM 108 mg/dL (70-110); LIPASE 14 U/L (23-300); MAGNESIUM 1.9 mg/dL (1.7-2.2); PHOSPHOROUS 2.5 mg/dL (2.5-4.5); POTASSIUM 3.2 mmol/L (3.6-5.0); SODIUM 133 mmol/L (132-148); TOTAL PROTEIN 7.2 g/dL (5.8-8.3)
[2017-04-16] MEDS ORDERED: Potassium Chloride 20 mEq ER Tab PO STA (08:04)
[2017-04-16 08:09] VITALS: BP 138/93; TEMP 98.6; O2SAT 99
[2017-04-16] MEDS: Multivitamin Therapeutic Tab PO SCH (09:13)
[2017-04-16] MEDS: POLYETHYLENE GLYCOL 3350 17 GM/Dose PACKET PO SCH (09:13)
--- NOTE | 2017-04-16 11:52 | CP.PCM.DIS ---
<Abhay Humphrey - Last Filed: 04/16/17 11:38> Provider - Provider Date of Admission: 04/15/17 05:36 Attending physician: Benson Florez MD Consults: Cardiology- Dr. Crespo GI- Dr. Diamond Time Spent in preparation of Discharge (in minutes): 30 Hospital Course - Lab Results Lab Results: Most Recent Lab Values WBC 3.9 10^3/ul (4.5-11.0) L D 04/16/17 06:15 RBC 3.40 10^6/uL (3.5-6.1) L 04/16/17 06:15 Hgb 11.8 g/dL (14.0-18.0) L 04/16/17 06:15 Hct 35.1 % (42.0-52.0) L 04/16/17 06:15 MCV 103.2 fl (80.0-105.0) 04/16/17 06:15 MCH 34.7 pg (25.0-35.0) 04/16/17 06:15 MCHC 33.6 g/dl (31.0-37.0) 04/16/17 06:15 RDW 15.4 % (11.5-14.5) H 04/16/17 06:15 Plt Count 84 10^3/uL (120.0-450.0) L 04/16/17 06:15 MPV 10.9 fl (7.0-11.0) 04/16/17 06:15 Gran % 63.6 % (50.0-68.0) 04/16/17 06:15 Lymph % (Auto) 27.4 % (22.0-35.0) 04/16/17 06:15 Hawkins % (Auto) 6.4 % (1.0-6.0) H 04/16/17 06:15 Eos % (Auto) 2.3 % (1.5-5.0) 04/16/17 06:15 Baso % (Auto) 0.3 % (0.0-3.0) 04/16/17 06:15 Gran # 2.49 (1.4-6.5) 04/16/17 06:15 Lymph # 1.1 (1.2-3.4) L 04/16/17 06:15 Hawkins # 0.3 (0.1-0.6) 04/16/17 06:15 Eos # 0.1 (0.0-0.7) 04/16/17 06:15 Baso # 0.01 K/mm3 (0.0-2.0) 04/16/17 06:15 Sodium 133 mmol/L (132-148) 04/16/17 06:15 Potassium 3.2 mmol/L (3.6-5.0) L 04/16/17 06:15 Chloride 91 mmol/L (98-107) L 04/16/17 06:15 Carbon Dioxide 36 mmol/L (21-33) H 04/16/17 06:15 Anion Gap 9 (10-20) L 04/16/17 06:15 BUN 3 mg/dL (7-21) L 04/16/17 06:15 Creatinine 0.6 mg/dL (0.5-1.4) 04/16/17 06:15 Est GFR ( Amer) > 60 04/16/17 06:15 Est GFR (Non-Af Amer) > 60 04/16/17 06:15 Random Glucose 108 mg/dL (70-110) 04/16/17 06:15 Calcium 8.9 mg/dL (8.4-10.5) 04/16/17 06:15 Phosphorus 2.5 mg/dL (2.5-4.5) 04/16/17 06:15 Magnesium 1.9 mg/dL (1.7-2.2) 04/16/17 06:15 Total Bilirubin 3.7 mg/dL (0.2-1.3) H 04/16/17 06:15 AST 628 U/L (17-59) H D 04/16/17 06:15 ALT 163 U/L (7-56) H 04/16/17 06:15 Alkaline Phosphatase 328 U/L (38-126) H 04/16/17 06:15 Lactate Dehydrogenase 2286 U/L (333-699) H 04/15/17 11:30 Total Creatine Kinase 778 U/L (35-230) H 04/15/17 11:30 CK-MB (CK-2) 8.1 ng/mL (0.0-3.6) H 04/15/17 11:30 CK-MB (CK-2) % 1.0 % (2.5-3.0) L 04/15/17 11:30 Troponin I 0.01 ng/mL D 04/15/17 21:33 Total Protein 7.2 g/dL (5.8-8.3) 04/16/17 06:15 Albumin 3.9 g/dL (3.0-4.8) 04/16/17 06:15 Globulin 3.2 gm/dL 04/16/17 06:15 Albumin/Globulin Ratio 1.2 (1.1-1.8) 04/16/17 06:15 Triglycerides 93 mg/dL (35-160) 04/16/17 06:15 Cholesterol 240 mg/dL (130-200) H 04/16/17 06:15 LDL Cholesterol Direct 97 mg/dL (0-129) 04/16/17 06:15 HDL Cholesterol 148 mg/dL (29-60) H 04/16/17 06:15 Amylase 62 U/L (35-125) 04/16/17 06:15 Lipase 14 U/L (23-300) L 04/16/17 06:15 TSH 3rd Generation 2.4 MIU/ml (0.46-4.68) 04/16/17 06:15 Urine Color Dark yellow (YELLOW) 04/15/17 16:00 Urine Appearance Clear (CLEAR) 04/15/17 16:00 Urine pH 6.5 (4.7-8.0) 04/15/17 16:00 Ur Specific [place] 1.025 (1.005-1.035) 04/15/17 16:00 Urine Protein 100 mg/dL (<30 mg/dL) H 04/15/17 16:00 Urine Glucose (UA) Negative mg/dL (NEGATIVE) 04/15/17 16:00 Urine Ketones >=80 mg/dL (NEGATIVE) 04/15/17 16:00 Urine Blood Trace-intact (NEGATIVE) H 04/15/17 16:00 Urine Nitrate Negative (NEGATIVE) 04/15/17 16:00 Urine Bilirubin Moderate (NEGATIVE) H 04/15/17 16:00 Urine Urobilinogen 1.0 E.U./dL (<1 E.U./dL) H 04/15/17 16:00 Ur Leukocyte Esterase Negative Eliana/uL (NEGATIVE) 04/15/17 16:00 Urine RBC 0 - 2 /hpf (0-2) 04/15/17 16:00 Urine WBC 0 - 2 /hpf (0-6) 04/15/17 16:00 Ur Epithelial Cells 1 - 3 /hpf (0-5) 04/15/17 16:00 Urine Bacteria Few (NEG) 04/15/17 16:00 Alcohol, Quantitative < 10 mg/dL (0-10) 04/15/17 06:37 - Hospital Course Hospital Course: Patient is a 41 year old male who was admitted for evaluation and treatment of dizziness, blurry vision, vomitting, sharp left flank pain, and left upper quadrant pain. With the use of physical examinations, lab work, and imaging the patient was diagnosed with and treated for chronic pancreatitis. During their hospital stay the patient was seen by cardiology, Dr. Crespo, and gastroenterology Dr. Diamond. During their hospital stay the patient underwent a CT of the abdomen and pelvis showing moderate amounts of stool and a CT of the head showing no acute pathology. Patient was treated with antihypertensives, anaglesics, and vitamins. Patients abdominal pain has resolved with treatment and he is seen ambulating without overt difficulty. At this time the patient is medically stable for discharge. Patient understands and appreciates discharge plan. Patient instructed to follow up with primary care physicians and referrals within one week from discharge. Furthermore the patient is instructed to take medications as prescribed and to return to emergency room for evaluation of intractable headache, fever, chills, dizziness , chest pain, shortness of breath, abdominal pain, nausea, vomiting, diarrhea, constipation, and urinary symptoms. This is a brief summary of the patient hospital course. Please see patient chart for full details. Discharge Exam - Head Exam Head Exam: ATRAUMATIC, NORMAL INSPECTION, NORMOCEPHALIC - Additional Findings Additional findings: - Constitutional Appears: Well, No Acute Distress - Head Exam Head Exam: ATRAUMATIC, NORMAL INSPECTION, NORMOCEPHALIC - Eye Exam Eye Exam: Normal appearance - ENT Exam ENT Exam: Normal External Ear Exam - Neck Exam Neck exam: Positive for: Normal Inspection - Respiratory Exam Respiratory Exam: Clear to Auscultation Bilateral, NORMAL BREATHING PATTERN. absent: Rales, Rhonchi, Wheezes, Respiratory Distress, Stridor - Cardiovascular Exam Cardiovascular Exam: REGULAR RHYTHM, +S1 (Normal.), +S2 (Normal.). absent: JVD - GI/Abdominal Exam GI & Abdominal Exam: Normal Bowel Sounds, Soft (Yes.). absent: Bruit, Distended, Firm, Guarding, Hernia, Mass, Organomegaly, Pulsatile Mass, Rebound, Rigid, Tenderness - Extremities Exam Extremities exam: Positive for: normal inspection - Back Exam Back exam: NORMAL INSPECTION - Neurological Exam Neurological exam: Alert, Oriented x3 - Psychiatric Exam Psychiatric exam: Normal Affect, Normal Mood - Skin Skin Exam: Normal Color Discharge Plan - Discharge Medications Prescriptions: amLODIPine [Norvasc] 10 mg PO DAILY #30 tab hydroCHLOROthiazide [Microzide] 12.5 mg PO DAILY #30 cap Lisinopril [Zestril] 20 mg PO DAILY #30 tab - Follow Up Plan Condition: STABLE Disposition: HOME/ ROUTINE Patient education suggested?: Yes Instructions: Acute Abdominal Pain (DC), Acute Abdominal Pain (GEN), Hypertension (DC), Hypertension (GEN) Additional Instructions: Patient Instructions: Take medications as prescribed. Follow up with PMD and referrals within 1 week from discharge. Return to emergency room for evaluation of intractable headache, fever, chills, dizziness, chest pain, shortness of breath, abdominal pain, nausea, vomiting, diarrhea, constipation, and urinary symptoms. Referrals: Terra Crespo MD [Staff Provider] - João Diamond MD [Staff Provider] - <Benson Florez - Last Filed: 04/19/17 18:52> Provider - Provider Date of Admission: 04/15/17 05:36 Attending physician: Benson Florez MD Time Spent in preparation of Discharge (in minutes): 35 Hospital Course - Lab Results Lab Results: Most Recent Lab Values WBC 3.9 10^3/ul (4.5-11.0) L D 04/16/17 06:15 RBC 3.40 10^6/uL (3.5-6.1) L 04/16/17 06:15 Hgb 11.8 g/dL (14.0-18.0) L 04/16/17 06:15 Hct 35.1 % (42.0-52.0) L 04/16/17 06:15 MCV 103.2 fl (80.0-105.0) 04/16/17 06:15 MCH 34.7 pg (25.0-35.0) 04/16/17 06:15 MCHC 33.6 g/dl (31.0-37.0) 04/16/17 06:15 RDW 15.4 % (11.5-14.5) H 04/16/17 06:15 Plt Count 84 10^3/uL (120.0-450.0) L 04/16/17 06:15 MPV 10.9 fl (7.0-11.0) 04/16/17 06:15 Gran % 63.6 % (50.0-68.0) 04/16/17 06:15 Lymph % (Auto) 27.4 % (22.0-35.0) 04/16/17 06:15 Hawkins % (Auto) 6.4 % (1.0-6.0) H 04/16/17 06:15 Eos % (Auto) 2.3 % (1.5-5.0) 04/16/17 06:15 Baso % (Auto) 0.3 % (0.0-3.0) 04/16/17 06:15 Gran # 2.49 (1.4-6.5) 04/16/17 06:15 Lymph # 1.1 (1.2-3.4) L 04/16/17 06:15 Hawkins # 0.3 (0.1-0.6) 04/16/17 06:15 Eos # 0.1 (0.0-0.7) 04/16/17 06:15 Baso # 0.01 K/mm3 (0.0-2.0) 04/16/17 06:15 Sodium 133 mmol/L (132-148) 04/16/17 06:15 Potassium 3.2 mmol/L (3.6-5.0) L 04/16/17 06:15 Chloride 91 mmol/L (98-107) L 04/16/17 06:15 Carbon Dioxide 36 mmol/L (21-33) H 04/16/17 06:15 Anion Gap 9 (10-20) L 04/16/17 06:15 BUN 3 mg/dL (7-21) L 04/16/17 06:15 Creatinine 0.6 mg/dL (0.5-1.4) 04/16/17 06:15 Est GFR ( Amer) > 60 04/16/17 06:15 Est GFR (Non-Af Amer) > 60 04/16/17 06:15 Random Glucose 108 mg/dL (70-110) 04/16/17 06:15 Hemoglobin A1c 5.4 % (4.2-6.5) 04/16/17 06:15 Calcium 8.9 mg/dL (8.4-10.5) 04/16/17 06:15 Phosphorus 2.5 mg/dL (2.5-4.5) 04/16/17 06:15 Magnesium 1.9 mg/dL (1.7-2.2) 04/16/17 06:15 Total Bilirubin 3.7 mg/dL (0.2-1.3) H 04/16/17 06:15 AST 628 U/L (17-59) H D 04/16/17 06:15 ALT 163 U/L (7-56) H 04/16/17 06:15 Alkaline Phosphatase 328 U/L (38-126) H 04/16/17 06:15 Lactate Dehydrogenase 2286 U/L (333-699) H 04/15/17 11:30 Total Creatine Kinase 778 U/L (35-230) H 04/15/17 11:30 CK-MB (CK-2) 8.1 ng/mL (0.0-3.6) H 04/15/17 11:30 CK-MB (CK-2) % 1.0 % (2.5-3.0) L 04/15/17 11:30 Troponin I 0.01 ng/mL D 04/15/17 21:33 Total Protein 7.2 g/dL (5.8-8.3) 04/16/17 06:15 Albumin 3.9 g/dL (3.0-4.8) 04/16/17 06:15 Globulin 3.2 gm/dL 04/16/17 06:15 Albumin/Globulin Ratio 1.2 (1.1-1.8) 04/16/17 06:15 Triglycerides 93 mg/dL (35-160) 04/16/17 06:15 Cholesterol 240 mg/dL (130-200) H 04/16/17 06:15 LDL Cholesterol Direct 97 mg/dL (0-129) 04/16/17 06:15 HDL Cholesterol 148 mg/dL (29-60) H 04/16/17 06:15 Amylase 62 U/L (35-125) 04/16/17 06:15 Lipase 14 U/L (23-300) L 04/16/17 06:15 TSH 3rd Generation 2.4 MIU/ml (0.46-4.68) 04/16/17 06:15 Urine Color Dark yellow (YELLOW) 04/15/17 16:00 Urine Appearance Clear (CLEAR) 04/15/17 16:00 Urine pH 6.5 (4.7-8.0) 04/15/17 16:00 Ur Specific [place] 1.025 (1.005-1.035) 04/15/17 16:00 Urine Protein 100 mg/dL (<30 mg/dL) H 04/15/17 16:00 Urine Glucose (UA) Negative mg/dL (NEGATIVE) 04/15/17 16:00 Urine Ketones >=80 mg/dL (NEGATIVE) 04/15/17 16:00 Urine Blood Trace-intact (NEGATIVE) H 04/15/17 16:00 Urine Nitrate Negative (NEGATIVE) 04/15/17 16:00 Urine Bilirubin Moderate (NEGATIVE) H 04/15/17 16:00 Urine Urobilinogen 1.0 E.U./dL (<1 E.U./dL) H 04/15/17 16:00 Ur Leukocyte Esterase Negative Eliana/uL (NEGATIVE) 04/15/17 16:00 Urine RBC 0 - 2 /hpf (0-2) 04/15/17 16:00 Urine WBC 0 - 2 /hpf (0-6) 04/15/17 16:00 Ur Epithelial Cells 1 - 3 /hpf (0-5) 04/15/17 16:00 Urine Bacteria Few (NEG) 04/15/17 16:00 Alcohol, Quantitative < 10 mg/dL (0-10) 04/15/17 06:37 Hepatitis A IgM Ab Negative (NEGATIVE) 04/16/17 06:15 Hep Bs Antigen Negative (NEGATIVE) 04/16/17 06:15 Hep B Core IgM Ab Negative (NEGATIVE) 04/16/17 06:15 Hepatitis C Antibody Negative (NEGATIVE) 04/16/17 06:15 Attending/Attestation - Attestation I have personally seen and examined this patient.: Yes I have fully participated in the care of the patient.: Yes I have reviewed all pertinent clinical information, including history, physical exam and plan: Yes Notes (Text): 04/19/17 18:28 I have seen and examined the patient at bedside. Agree with the above note with the following additions/ exceptions: Briefly this is 41 year old male with history of chronic pancreatitis and alcohol abuse who was admitted with chronic pancreatitis. His diet was slowly advanced. He feels better and denies any pain. Patient is not going thru withdrawal. Patient is homeless however does not want to go to senior living. Upon discharge patient will go to Dr Cruz Patricio. Dr Benson Florez
[2017-04-16 12:22] VITALS: PULSE 68
[2017-04-16] MEDS ORDERED: Potassium Chloride 20 mEq ER Tab PO ONE (12:57)
--- NOTE | 2017-04-16 14:19 | PN ---
DATE: 04/16/2017 REASON FOR CONSULTATION: Followup cardiac evaluation, ST-T changes, and abnormal EKG. BRIEF CLINICAL HISTORY: Denies any chest pain or shortness of breath and feels better. PHYSICAL EXAMINATION: GENERAL: Not in apparent distress, lying with the family member at the bedside. VITAL SIGNS: As follows; temperature afebrile, heart rate , and blood pressure 130/90. HEENT: PERRLA intact. NECK: Supple. No carotid bruit or thyromegaly. CHEST: Clear to auscultation. HEART: S1 and S2 regular. ABDOMEN: Soft. EXTREMITIES: Clubbing and cyanosis negative. LABORATORY DATA: Blood workup as follows; WBC 3.9, hemoglobin 11.8, hematocrit 35.1, and platelet count 84. Chemistry shows sodium 136, potassium 3.2, chloride 91, carbon dioxide 36, anion gap 9, BUN 3, and creatinine 0.6. IMPRESSION: Alcoholic intoxication, alcohol abuse, tobacco abuse, and no significant ST-T changes noted. No evidence of acute myocardial infarction, rhabdomyolysis, MB fraction 1. RECOMMENDATIONS: Supplement electrolytes as needed and echo to assist LV function. If the echo cannot be done, can be done as an outpatient, we will supplement electrolyte aggressively. We will follow with you. Thank you Dr. Florez for providing me the opportunity in taking care of patientPee. Terra Crespo MD
--- NOTE | 2017-04-17 18:17 | CARD ---
APPROVED REPORT EXAM: Two-dimensional and M-mode echocardiogram with Doppler and color Doppler. INDICATION CP/LVFX 2D DIMENSIONS Left Atrium (2D)4.4 (1.6-4.0cm)IVSd1.2 (0.7-1.1cm) LVDd4.8 (3.9-5.9cm)PWd1.2 (0.7-1.1cm) LVDs3.6 (2.5-4.0cm)FS (%) 25.4 % LVEF (%)50.2 (>50%) M-Mode DIMENSIONS Aortic Root3.30 (2.2-3.7cm)Aortic Cusp Exc.2.10 (1.5-2.0cm) Aortic Valve AoV Peak Irgiqeyr869.0cm/Gm Peak GR.6mmHg Mitral Valve MV E Wjqvrewh76.2cm/sMV A Zdawrckn36.5cm/sE/A ratio0.7 TDI Lateral E' Peak V8.09cm/sMedial E' Peak V6.04cm/sE/Lateral E'5.3 E/Medial E'7.2 Pulmonary Valve PV Peak Fxpeldoq91.2cm/sPV Peak Grad.2mmHg Tricuspid Valve TR Peak Cfiqyaad016qa/sRAP QOHHAWNG07plNbSE Peak Gr.27mmHg [id number] LEFT VENTRICLE The left ventricle is normal size. There is normal left ventricular wall thickness. The left ventricular function is normal.EF-55% There is normal LV segmental wall motion. Transmitral Doppler flow pattern is Grade III-reversible restrictive diastolic dysfunction. No left ventricle thrombus noted on this study. There is no ventricular septal defect visualized. There is no left ventricular aneurysm. There is no mass noted in the left ventricle. RIGHT VENTRICLE The right ventricle is normal size. There is normal right ventricular wall thickness. The right ventricular systolic function is normal. ATRIA The left atrium is mildly dilated. The right atrium is borderline dilated. The interatrial septum is intact with no evidence for an atrial septal defect. AORTIC VALVE The aortic valve is normal in structure. No aortic regurgitation is present. There is no aortic valvular stenosis. There is no aortic valvular vegetation. MITRAL VALVE The mitral valve is thickened but opens well. Mitral regurgitation is mild. There is no mitral valve stenosis. There is no evidence of mitral valve prolapse. TRICUSPID VALVE The tricuspid valve leaflets are thickened , but open well. There is mild tricuspid regurgitation.RVSP-37 mmof hg, There is no tricuspid valve stenosis. There is no tricuspid valve prolapse or vegetation. PULMONIC VALVE The pulmonary valve is normal in structure. There is no pulmonic valvular regurgitation. There is no pulmonic valvular stenosis. GREAT VESSELS The aortic root is normal in size. The ascending aorta is normal in size. The pulmonary artery is normal. The IVC is normal in size and collapses >50% with inspiration. PERICARDIAL EFFUSION There is no pleural effusion. There is no pericardial effusion. <Conclusion> The left ventricle is normal size. There is normal left ventricular wall thickness. The left ventricular function is normal.EF-55% Mitral regurgitation is mild. There is mild tricuspid regurgitation.RVSP-37 mmof hg, The IVC is normal in size and collapses >50% with inspiration. There is no pericardial effusion.
[2017-04-20 05:23] LABS: ACETONE None Detected; ETHANOL None Detected; ISOPROPANOL None Detected; METHANOL None Detected
== END 2017-04-16 16:19 | disposition home or self-care (01) ==
LOC: ED 02:02 → ERH 05:36 → 3RNO 06:59
PROVIDERS: ADMIT Internal Medicine; ATTEND Hospitalist
DX: K86.1 Other chronic pancreatitis (principal); E87.6 Hypokalemia; F14.10 Cocaine abuse, uncomplicated; F10.10 Alcohol abuse, uncomplicated; D69.6 Thrombocytopenia, unspecified; D64.9 Anemia, unspecified; I10 Essential (primary) hypertension; F17.210 Nicotine dependence, cigarettes, uncomplicated; K59.00 Constipation, unspecified; Y90.0 Blood alcohol level of less than 20 mg/100 ml
CPT/HCPCS: 36415; 70450; 74177; 80053; 80061; 80074; 80320; 81001; 82009; 82150; 82550; 82553; 83036; 83615; 83690; 83735; 84100; 84443; 84484; 84600; 85025; 85027; 93005; 93306; 96374; 96375; 96376; 99282; G0378; J1885; J2270; J2405; J3411; J3475; J7040; J7070; Q9967

== ENCOUNTER 2017-05-06 22:07 | Emergency (ER) | payer MEDICAID ==
[2017-05-06 22:26] VITALS: TEMP 98.2; BMI 22.2
--- NOTE | 2017-05-06 22:50 | ED PDOC ---
Arrival/HPI - General Chief Complaint: Dizziness/Lightheaded Time Seen by Provider: 05/06/17 22:18 Historian: Patient - History of Present Illness Narrative History of Present Illness (Text): 05/06/17 22:50 Felix Glasgow is a 41 year old male, whose past medical history includes hypertension, alcohol abuse, and pancreatitis, who presents to the Emergency department complaining of high blood pressure. Patient states he began experiencing "spots" in his vision and noted his high blood pressure to be elevated. Patient also complaining of headache. Patient denies any fever, chills , chest pain, shortness of breath, nausea, vomiting, diarrhea, urinary symptoms , back pain, neck pain, or any other complaints. Time/Duration: Other (tonight) Symptom Onset: Gradual Symptom Course: Unchanged Activities at Onset: Light Context: Home Past Medical History - Provider Review Nursing Documentation Reviewed: Yes - Infectious Disease Hx of Infectious Diseases: None - Tetanus Immunization Tetanus Immunization: Unknown - Past Medical History Past Medical History: No Previous - Cardiac Hx Cardiac Disorders: Yes Hx Hypertension: Yes - Pulmonary Hx Respiratory Disorders: No - Neurological Hx Neurological Disorder: No - HEENT Hx HEENT Disorder: No - Renal Hx Renal Disorder: No - Endocrine/Metabolic Hx Endocrine Disorders: No - Hematological/Oncological Hx Blood Disorders: No - Integumentary Hx Dermatological Disorder: No - Musculoskeletal/Rheumatological Hx Musculoskeletal Disorders: No - Gastrointestinal Hx Gastrointestinal Disorders: Yes Hx Gastroesophageal Reflux: Yes Hx Pancreatitis: Yes - Genitourinary/Gynecological Hx Genitourinary Disorders: No Hx Sexually Transmitted Diseases: No - Psychiatric Hx Psychophysiologic Disorder: No Hx Substance Use: Yes - Past Surgical History Past Surgical History: No Previous - Surgical History Hx Amputation: No Hx Appendectomy: No Hx Cardiac Catheterization: No Hx Cholecystectomy: No Hx Coronary Stent: No Hx Gastric Bypass Surgery: No Hx Hysterectomy: No Hx Joint Replacement: No Hx Kidney Transplant: No Hx Liver Transplant: No Hx Mastectomy: No Hx Musculoskeletal Surgery: No Hx Open Heart Surgery: No Hx Orthopedic Surgery: No Hx Splenectomy: No Hx Valve Replacement: No - Anesthesia Hx Anesthesia: No Hx Anesthesia Reactions: No Hx Malignant Hyperthermia: No - Suicidal Assessment Feels Threatened In Home Enviroment: No Family/Social History - Physician Review Nursing Documentation Reviewed: Yes Family/Social History: Unknown Family HX Smoking Status: Smoker Currrent Status Unknown Hx Alcohol Use: Yes Amount per day: 24 Hx Substance Use: Yes Allergies/Home Meds Allergies/Adverse Reactions: Allergies No Known Allergies Allergy (Verified 05/07/17 04:25) Review of Systems - Physician Review All systems were reviewed & negative as marked: Yes - Review of Systems Constitutional: Normal. absent: Fevers Eyes: Vision Changes (+spots in vision) ENT: Normal Respiratory: Normal. absent: SOB, Cough Cardiovascular: Other (+high blood pressure). absent: Chest Pain Gastrointestinal: Normal. absent: Abdominal Pain, Diarrhea, Nausea, Vomiting Genitourinary Male: Normal. absent: Dysuria, Frequency, Hematuria, Urinary Output Changes Musculoskeletal: Normal. absent: Back Pain, Neck Pain Skin: Normal. absent: Rash Neurological: Headache Endocrine: Normal Hemo/Lymphatic: Normal Psychiatric: Normal Physical Exam Vital Signs Reviewed: Yes Vital Signs Temp Pulse Resp BP Pulse Ox 05/07/17 04:43 80 18 88/42 L 98 05/06/17 22:25 98.2 F 71 19 195/124 H 100 Temperature: Afebrile Blood Pressure: Hypertensive Pulse: Regular Respiratory Rate: Normal Appearance: Positive for: Well-Appearing, Non-Toxic, Comfortable Pain Distress: None Mental Status: Positive for: Alert and Oriented X 3 - Systems Exam Head: Present: Atraumatic, Normocephalic Pupils: Present: PERRL Extroacular Muscles: Present: EOMI Conjunctiva: Present: Normal Mouth: Present: Moist Mucous Membranes Neck: Present: Normal Range of Motion Respiratory/Chest: Present: Clear to Auscultation, Good Air Exchange. No: Respiratory Distress, Accessory Muscle Use Cardiovascular: Present: Regular Rate and Rhythm, Normal S1, S2. No: Murmurs Abdomen: Present: Normal Bowel Sounds. No: Tenderness, Distention, Peritoneal Signs Back: Present: Normal Inspection Upper Extremity: Present: Normal Inspection. No: Cyanosis, Edema Lower Extremity: Present: Normal Inspection. No: Edema Neurological: Present: GCS=15, CN II-XII Intact, Speech Normal Skin: Present: Warm, Dry, Normal Color. No: Rashes Psychiatric: Present: Alert, Oriented x 3, Normal Insight, Normal Concentration Medical Decision Making ED Course and Treatment: 05/06/17 22:50 Impression: 41 year old male complaining of spots in vision, high blood pressure, and headache. Differential Diagnosis included but are not limited to: hypertension Plan: -- CT Head w/o contrast -- EKG -- Labs, alcohol level, troponin -- Urinalysis -- Librium -- Reassess and disposition Prior Visits: Notes and results from previous visits were reviewed. On 04/15/2017, pt was seen in the Emergency department for LUQ pain, nausea, and vomiting. Pt was admitted to the hospital for further evaluation. Progress Notes: Reviewed EKG, sinus bradycardia at 59 bpm. Sinus arrhythmia at 59 bpm. Non- specific ST/T wave changes. 05/07/17 00:05 Reviewed radiology, CT Head shows: Brain: No acute intracranial hemorrhage. No significant white matter disease. No edema. Extensive falx calcifications, unchanged. Ventricles: No significant ventriculomegaly. Bones: No acute displaced fracture. Sinuses: Unremarkable as visualized. No acute sinusitis. Mastoid air cells: Unremarkable as visualized. No mastoid effusion. IMPRESSION: No acute intracranial hemorrhage, or suspicious mass effect. - Lab Interpretations Lab Results: 05/06/17 23:40 05/06/17 23:40 Lab Results 05/07/17 04:49: Urine Color Yellow, Urine Appearance Sl cloudy, Urine pH 6.5, Ur Specific [place] 1.020, Urine Protein Negative, Urine Glucose (UA) Negative, Urine Ketones 15 H, Urine Blood Negative, Urine Nitrate Positive H, Urine Bilirubin Negative, Urine Urobilinogen 0.2, Ur Leukocyte Esterase Negative, Urine RBC 0 - 2, Urine WBC 0 - 2, Ur Epithelial Cells 1 - 3, Urine Bacteria Many 05/06/17 23:40: Alcohol, Quantitative 56 H 05/06/17 23:40: Sodium 141, Potassium 3.7, Chloride 104, Carbon Dioxide 27, Anion Gap 14, BUN 7, Creatinine 0.6 L, Est GFR ( Amer) > 60, Est GFR (Non -Af Amer) > 60, Random Glucose 73, Calcium 9.1, Total Bilirubin 1.8 H, AST 1099 H, ALT 190 H, Alkaline Phosphatase 315 H, Troponin I 0.02 D, Total Protein 7.7 , Albumin 4.1, Globulin 3.6, Albumin/Globulin Ratio 1.1 05/06/17 23:40: WBC 4.7 D, RBC 3.39 L, Hgb 11.7 L, Hct 35.1 L, MCV 103.5, MCH 34.5, MCHC 33.3, RDW 16.6 H, Plt Count 119 L, MPV 11.1 H, Gran % 60.8, Lymph % ( Auto) 30.6, [place] % (Auto) 6.2 H, Eos % (Auto) 1.3 L, Baso % (Auto) 1.1, Gran # 2.87, Lymph # 1.4, [place] # 0.3, Eos # 0.1, Baso # 0.05 I have reviewed the lab results: Yes - RAD Interpretation Radiology Orders: 05/06/17 22:47 HEAD W/O CONTRAST [CT] Stat Vocational Coordinator: Radiologist - EKG Interpretation Interpreted by ED Physician: Yes Type: 12 lead EKG - Medication Orders Current Medication Orders: Discontinued Medications Chlordiazepoxide (Librium) 50 mg PO STAT STA PRN Reason: Protocol Stop: 05/06/17 22:49 Last Admin: 05/06/17 23:11 Dose: 50 mg - Scribe Statement The provider has reviewed the documentation as recorded by the Becca Zhou Provider Scribe Attestation: All medical record entries made by the Jeanetteibcassandra were at my direction and personally dictated by me. I have reviewed the chart and agree that the record accurately reflects my personal performance of the history, physical exam, medical decision making, and the department course for this patient. I have also personally directed, reviewed, and agree with the discharge instructions and disposition. Disposition/Present on Arrival - Present on Arrival Any Indicators Present on Arrival: No History of DVT/PE: No History of Uncontrolled Diabetes: No Urinary Catheter: No History of Decub. Ulcer: No History Surgical Site Infection Following: None - Disposition Have Diagnosis and Disposition been Completed?: Yes Diagnosis: Alcohol abuse Disposition: HOME/ ROUTINE Disposition Time: 06:30 Condition: GOOD Discharge Instructions (ExitCare): Abuse of Alcohol (ED) Forms: [employer] (Azeri)
--- NOTE | 2017-05-06 23:19 | CT ---
EXAM: CT Head Without Intravenous Contrast CLINICAL HISTORY: 41 years old, male; Pain; Headache; Tension; Additional info: CANCINO TECHNIQUE: Axial computed tomography images of the head/brain without intravenous contrast. All CT scans at this facility use one or more dose reduction techniques, viz.: automated exposure control; ma/kV adjustment per patient size (including targeted exams where dose is matched to indication; i.e. head); or iterative reconstruction technique. COMPARISON: CT - HEAD W/O CONTRAST 04/15/2017 6:39:26 AM FINDINGS: Brain: No acute intracranial hemorrhage. No significant white matter disease. No edema. Extensive falx calcifications, unchanged. Ventricles: No significant ventriculomegaly. Bones: No acute displaced fracture. Sinuses: Unremarkable as visualized. No acute sinusitis. Mastoid air cells: Unremarkable as visualized. No mastoid effusion. IMPRESSION: No acute intracranial hemorrhage, or suspicious mass effect.
[2017-05-07 00:17] LABS: BASO # 0.05 K/mm3 (0.0-2.0); BASO % 1.1 % (0.0-3.0); EOS # 0.1 (0.0-0.7); EOS % 1.3 % (1.5-5.0); GRAN # 2.87 (1.4-6.5); GRAN % 60.8 % (50.0-68.0); HEMATOCRIT 35.1 % (42.0-52.0); LYMPH # 1.4 (1.2-3.4); LYMPH % 30.6 % (22.0-35.0); MEAN CELL VOLUME 103.5 fl (80.0-105.0); MEAN CORPUSCULAR HEMOGLOBIN 34.5 pg (25.0-35.0); MEAN CORPUSCULAR HGB CONC 33.3 g/dl (31.0-37.0); MEAN PLATELET VOLUME 11.1 fl (7.0-11.0); MONO # 0.3 (0.1-0.6); MONO % 6.2 % (1.0-6.0); RED CELL DISTRIBUTION WIDTH 16.6 % (11.5-14.5); WHITE BLOOD COUNT 4.7 10^3/ul (4.5-11.0)
[2017-05-07 00:26] LABS: ALB/GLOB RATIO 1.1 (1.1-1.8); ALKALINE PHOSPHATASE 315 U/L (38-126); ALT/SGPT 190 U/L (7-56); BILIRUBIN,TOTAL 1.8 mg/dL (0.2-1.3); BLOOD UREA NITROGEN 7 mg/dL (7-21); CALCIUM 9.1 mg/dL (8.4-10.5); CARBON DIOXIDE 27 mmol/L (21-33); CHLORIDE 104 mmol/L (98-107); GFR AFRICAN-AMERICAN > 60; GLUCOSE,RANDOM 73 mg/dL (70-110); POTASSIUM 3.7 mmol/L (3.6-5.0); SODIUM 141 mmol/L (132-148); TOTAL PROTEIN 7.7 g/dL (5.8-8.3)
[2017-05-07 00:32] LABS: AST/SGOT 1099 U/L (17-59)
[2017-05-07 00:37] LABS: TROPONIN I 0.02 ng/mL
[2017-05-07 05:00] VITALS: BP 88/42; PULSE 80; RESP 18; O2SAT 98
[2017-05-07 05:12] LABS: PH,URINE 6.5 (4.7-8.0); URINE BILIRUBIN NEGATIVE (NEGATIVE); URINE BLOOD NEGATIVE (NEGATIVE); URINE GLUCOSE (UA) NEGATIVE (NEGATIVE); URINE KETONE 15 mg/dL (NEGATIVE); URINE LEUKOCYTE ESTERASE NEGATIVE Leu/uL (NEGATIVE); URINE PROTEIN NEGATIVE mg/dL (<30 mg/dL); URINE UROBILINOGEN 0.2 E.U./dL (<1 E.U./dL)
[2017-05-07 05:17] LABS: URINE APPEARANCE SL CLOUDY (CLEAR); URINE COLOR YELLOW (YELLOW)
[2017-05-07 05:35] LABS: URINE BACTERIA MANY (NEG); URINE RBC 0 - 2 /hpf (0-2); URINE WBC 0 - 2 /hpf (0-6)
--- NOTE | 2017-05-07 22:17 | CARD ---
APPROVED REPORT EKG Measurement Heart [id number] <Conclusion> Sinus bradycardia with sinus arrhythmia Moderate voltage criteria for LVH, may be normal variant Borderline ECG
== END 2017-05-07 06:45 | disposition home or self-care (01) ==
LOC: ED 22:07
DX: F10.10 Alcohol abuse, uncomplicated (principal); Y90.2 Blood alcohol level of 40-59 mg/100 ml; I10 Essential (primary) hypertension

== ENCOUNTER 2017-05-16 20:24 | Emergency (ER) | payer MEDICAID ==
[2017-05-16 20:24] VITALS: BMI 22.2
[2017-05-16 20:45] VITALS: RESP 16; TEMP 97.8; O2SAT 100
[2017-05-16] MEDS ORDERED: Sodium Chloride 0.9% 1,000 ML IV STA (20:55)
[2017-05-16] MEDS ORDERED: Multivitamin (MVI) 10 ML, Thiamine 100 MG, Folic Acid 1 MG in Sodium Chloride 0.9% 1,00... IV ONE (20:56)
--- NOTE | 2017-05-16 21:13 | ED PDOC ---
Arrival/HPI <WilmanBruno - Last Filed: 05/16/17 21:37> - General Historian: Patient - History of Present Illness Time/Duration: Other (see hpi) Context: Street <René Mccain - Last Filed: 05/17/17 00:39> - General Chief Complaint: Abdominal Pain Time Seen by Provider: 05/16/17 20:32 - History of Present Illness Narrative History of Present Illness (Text): 05/16/17 20:54 This 41 yo male homeless, with pmh pancreatitis, presents to this ED c/o generalized abdominal pain x 2 days. Patient admits drinking 3 beers early today. Patient denies n/v, mi, fever, cp, sob, urinary symptoms, or abnormal gait. (René Mccain) Past Medical History - Provider Review Nursing Documentation Reviewed: Yes - Infectious Disease Hx of Infectious Diseases: None - Tetanus Immunization Tetanus Immunization: Unknown - Past Medical History Past Medical History: No Previous - Cardiac Hx Cardiac Disorders: Yes Hx Hypertension: Yes - Pulmonary Hx Respiratory Disorders: No - Neurological Hx Neurological Disorder: No - HEENT Hx HEENT Disorder: No - Renal Hx Renal Disorder: No - Endocrine/Metabolic Hx Endocrine Disorders: No - Hematological/Oncological Hx Blood Disorders: No - Integumentary Hx Dermatological Disorder: No - Musculoskeletal/Rheumatological Hx Musculoskeletal Disorders: No - Gastrointestinal Hx Gastrointestinal Disorders: Yes Hx Gastroesophageal Reflux: Yes Hx Pancreatitis: Yes - Genitourinary/Gynecological Hx Genitourinary Disorders: No Hx Sexually Transmitted Diseases: No - Psychiatric Hx Psychophysiologic Disorder: No Hx Substance Use: Yes - Past Surgical History Past Surgical History: No Previous - Surgical History Hx Amputation: No Hx Appendectomy: No Hx Cardiac Catheterization: No Hx Cholecystectomy: No Hx Coronary Stent: No Hx Gastric Bypass Surgery: No Hx Hysterectomy: No Hx Joint Replacement: No Hx Kidney Transplant: No Hx Liver Transplant: No Hx Mastectomy: No Hx Musculoskeletal Surgery: No Hx Open Heart Surgery: No Hx Orthopedic Surgery: No Hx Splenectomy: No Hx Valve Replacement: No - Anesthesia Hx Anesthesia: No Hx Anesthesia Reactions: No Hx Malignant Hyperthermia: No - Suicidal Assessment Feels Threatened In Home Enviroment: No <René Mccain - Last Filed: 05/17/17 00:39> Family/Social History - Physician Review Nursing Documentation Reviewed: Yes Family/Social History: Other (noncontributory) Smoking Status: Smoker Currrent Status Unknown Hx Alcohol Use: Yes Frequency of alcohol use: Few days per week Amount per day: 24 Hx Substance Use: Yes <René Mccain - Last Filed: 05/17/17 00:39> Allergies/Home Meds <Bruno Stovall - Last Filed: 05/16/17 21:37> <René Mccain - Last Filed: 05/17/17 00:39> Allergies/Adverse Reactions: Allergies No Known Allergies Allergy (Verified 05/16/17 20:39) Review of Systems - Review of Systems Constitutional: Normal. absent: Fatigue, Weight Change, Fevers Eyes: Normal ENT: Normal Respiratory: Normal. absent: SOB, Cough Cardiovascular: Normal. absent: Chest Pain, Palpitations Gastrointestinal: Abdominal Pain. absent: Constipation, Diarrhea, Nausea, Vomiting, Food Intolerance Genitourinary Male: Normal. absent: Dysuria, Frequency, Hematuria Musculoskeletal: Normal Skin: Normal. absent: Rash, Pruritis, Skin Lesions Neurological: Normal. absent: Headache, Dizziness, Focal Weakness, Gait Changes , Speech Changes, Facial Droop, Disequilibrium Endocrine: Normal Hemo/Lymphatic: Normal Psychiatric: Normal <René Mccain - Last Filed: 05/17/17 00:39> Physical Exam Temperature: Afebrile Blood Pressure: Normal Pulse: Regular Respiratory Rate: Normal Appearance: Positive for: Well-Appearing, Non-Toxic, Comfortable Pain Distress: None Mental Status: Positive for: Alert and Oriented X 3 - Systems Exam Head: Present: Atraumatic, Normocephalic Pupils: Present: PERRL Extroacular Muscles: Present: EOMI Conjunctiva: Present: Normal Mouth: Present: Moist Mucous Membranes Neck: Present: Normal Range of Motion Respiratory/Chest: Present: Clear to Auscultation, Good Air Exchange. No: Respiratory Distress, Accessory Muscle Use Cardiovascular: Present: Regular Rate and Rhythm, Normal S1, S2. No: Murmurs Abdomen: Present: Normal Bowel Sounds, Other (Abdomen is soft.). No: Tenderness , Distention, Peritoneal Signs, Rebound, Guarding Back: Present: Normal Inspection. No: CVA Tenderness Upper Extremity: Present: Normal Inspection. No: Cyanosis, Edema Lower Extremity: Present: Normal Inspection. No: Edema Neurological: Present: GCS=15, CN II-XII Intact, Speech Normal, Motor Func Grossly Intact, Normal Sensory Function, Normal Cerebellar Funct Skin: Present: Warm, Dry, Normal Color. No: Rashes Psychiatric: Present: Alert, Oriented x 3, Normal Insight, Normal Concentration , Normal Affect. No: Suicidal Ideation, Homicidal Ideation <René Mccain - Last Filed: 05/17/17 00:39> Vital Signs Temp Pulse Resp BP Pulse Ox 05/16/17 20:30 97.8 F 74 16 140/93 H 100 Medical Decision Making <Bruno Stovall - Last Filed: 05/16/17 21:37> Re-evaluation Time: 00:32 Reassessment Condition: Re-examined, Improved - Lab Interpretations I have reviewed the lab results: Yes Interpretation: Abnormal lab values (no significant changes from previous) <René Mccain - Last Filed: 05/17/17 00:39> ED Course and Treatment: 05/17/17 00:32 On reevaluation the patient feels better and is in no acute distress. I have discussed the results and plan with the patient, who expresses understanding. Patient given the opportunity to ask question, all questions were answered and there is agreement with the plan to discharge the patient home with prescription for Bactrim DS. Patient is stable for discharge. Patient was instructed to follow up with physician/clinic in 1-2 days or return if symptoms persist/worsen or new concerning symptoms arise. I reviewed labs and medical history with Dr. Stovall, who agrees plan to d/c pt home. 05/17/17 00:36 Previous charts were reviewed (René Mccain) - Lab Interpretations Lab Results: 05/16/17 21:55 05/16/17 21:55 Lab Results 05/16/17 21:55: Sodium 151 H, Potassium 3.8, Chloride 111 H, Carbon Dioxide 30, Anion Gap 14, BUN 6 L, Creatinine 0.6 L, Est GFR ( Amer) > 60, Est GFR ( Non-Af Amer) > 60, Random Glucose 101, Calcium 8.4, Total Bilirubin 0.7, AST 236 H D, ALT 80 H, Alkaline Phosphatase 223 H D, Total Protein 7.1, Albumin 3.9 , Globulin 3.1, Albumin/Globulin Ratio 1.3, Lipase 22 L 05/16/17 21:55: WBC 3.6 L D, RBC 3.22 L, Hgb 11.3 L, Hct 33.7 L, MCV 104.7, MCH 35.1 H, MCHC 33.5, RDW 16.3 H, Plt Count 173, MPV 9.6, Gran % 33.6 L, Lymph % ( Auto) 56.3 H, [place] % (Auto) 5.6, Eos % (Auto) 3.1, Baso % (Auto) 1.4, Gran # 1.19 L, Lymph # 2.0, [place] # 0.2, Eos # 0.1, Baso # 0.05 - Medication Orders Current Medication Orders: Discontinued Medications Multivitamins/Vitamin C 10 ml/Thiamine HCl 100 mg/ Folic Acid 1 mg/ Sodium Chloride 1,011.2 mls @ 1,000 mls/hr IV .Q1H1M ONE Stop: 05/16/17 21:56 Trimethoprim/Sulfamethoxazole (Bactrim Ds Tab) 1 tab PO STAT STA PRN Reason: Protocol Stop: 05/17/17 00:23 - PA / HEEL MOLDER / Resident Statement BOOKER has reviewed & agrees with the documentation as recorded. BOOKER has examined the patient and agrees with the treatment plan. <Bruno Stovall - Last Filed: 05/16/17 21:37> Disposition/Present on Arrival <Bruno Stovall - Last Filed: 05/16/17 21:37> - Present on Arrival Any Indicators Present on Arrival: No History of DVT/PE: No History of Uncontrolled Diabetes: No Urinary Catheter: No History of Decub. Ulcer: No History Surgical Site Infection Following: None - Disposition Have Diagnosis and Disposition been Completed?: Yes Disposition Time: 00:33 Patient Plan: Discharge <René Mccain - Last Filed: 05/17/17 00:39> - Disposition Diagnosis: Nonspecific abdominal pain, Urinary tract infection Disposition: HOME/ ROUTINE Patient Problems: Current Active Problems Problem Status Onset Nonspecific abdominal pain Acute Urinary tract infection Acute Condition: GOOD Discharge Instructions (ExitCare): Acute Abdominal Pain (ED) Additional Instructions: Call clinic for follow up visit in 1-2 days. Take medication as instructed. return to emergency if symptoms worsen. Prescriptions: Sulfamethoxazole/Trimethoprim [Bactrim DS 800 mg-160 mg] 1 tab PO BID #14 tab Referrals: [facility] [Outside] - Follow up with primary [facility] [Outside] - Follow up with primary Forms: [employer] ([place]an)
[2017-05-16 22:15] LABS: ALB/GLOB RATIO 1.3 (1.1-1.8); ALKALINE PHOSPHATASE 223 U/L (38-126); ALT/SGPT 80 U/L (7-56); AST/SGOT 236 U/L (17-59); BILIRUBIN,TOTAL 0.7 mg/dL (0.2-1.3); BLOOD UREA NITROGEN 6 mg/dL (7-21); CALCIUM 8.4 mg/dL (8.4-10.5); CARBON DIOXIDE 30 mmol/L (21-33); CHLORIDE 111 mmol/L (98-107); GFR AFRICAN-AMERICAN > 60; GLUCOSE,RANDOM 101 mg/dL (70-110); LIPASE 22 U/L (23-300); POTASSIUM 3.8 mmol/L (3.6-5.0); SODIUM 151 mmol/L (132-148); TOTAL PROTEIN 7.1 g/dL (5.8-8.3)
[2017-05-16 22:17] LABS: BASO # 0.05 K/mm3 (0.0-2.0); BASO % 1.4 % (0.0-3.0); EOS # 0.1 (0.0-0.7); EOS % 3.1 % (1.5-5.0); GRAN # 1.19 (1.4-6.5); GRAN % 33.6 % (50.0-68.0); HEMATOCRIT 33.7 % (42.0-52.0); LYMPH % 56.3 % (22.0-35.0); MEAN CELL VOLUME 104.7 fl (80.0-105.0); MEAN CORPUSCULAR HEMOGLOBIN 35.1 pg (25.0-35.0); MEAN CORPUSCULAR HGB CONC 33.5 g/dl (31.0-37.0); MEAN PLATELET VOLUME 9.6 fl (7.0-11.0); MONO # 0.2 (0.1-0.6); MONO % 5.6 % (1.0-6.0); RED CELL DISTRIBUTION WIDTH 16.3 % (11.5-14.5); WHITE BLOOD COUNT 3.6 10^3/ul (4.5-11.0)
[2017-05-17] MEDS ORDERED: Tmp-Smz 800 mg-160 mg DS Tab PO STA (00:22)
[2017-05-17 04:50] VITALS: BP 137/85; PULSE 76
== END 2017-05-17 02:30 | disposition home or self-care (01) ==
LOC: ED 20:24
DX: N39.0 Urinary tract infection, site not specified (principal); R10.9 Unspecified abdominal pain

== ENCOUNTER 2017-05-18 22:26 | Emergency (ER) | payer MEDICAID ==
[2017-05-18 22:29] VITALS: BMI 25.1
[2017-05-18 22:35] VITALS: TEMP 98.6
--- NOTE | 2017-05-19 00:22 | ED PDOC ---
Arrival/HPI - General Chief Complaint: Alcohol Ingestion Time Seen by Provider: 05/18/17 22:28 Historian: Patient - History of Present Illness Narrative History of Present Illness (Text): 05/18/17 23:00 Felix Glasgow is a 41 year old male, whose past medical history includes pancreatitis and alcohol abuse, who presents to the ED brought in by EMS for alcohol intoxication tonight. Patient admits to drinking alcohol tonight. Patient denies any fever, chills, chest pain, shortness of breath, nausea, vomiting, diarrhea, urinary symptoms, back pain, neck pain, headache, dizziness , or any other complaints. Time/Duration: Other (tonight) Symptom Onset: Gradual Symptom Course: Unchanged Activities at Onset: Light Past Medical History - Provider Review Nursing Documentation Reviewed: Yes - Infectious Disease Hx of Infectious Diseases: None - Tetanus Immunization Tetanus Immunization: Unknown - Past Medical History Past Medical History: No Previous - Cardiac Hx Cardiac Disorders: Yes Hx Hypertension: Yes - Pulmonary Hx Respiratory Disorders: No - Neurological Hx Neurological Disorder: No - HEENT Hx HEENT Disorder: No - Renal Hx Renal Disorder: No - Endocrine/Metabolic Hx Endocrine Disorders: No - Hematological/Oncological Hx Blood Disorders: No - Integumentary Hx Dermatological Disorder: No - Musculoskeletal/Rheumatological Hx Musculoskeletal Disorders: No - Gastrointestinal Hx Gastrointestinal Disorders: Yes Hx Gastroesophageal Reflux: Yes Hx Pancreatitis: Yes - Genitourinary/Gynecological Hx Genitourinary Disorders: No Hx Sexually Transmitted Diseases: No - Psychiatric Hx Psychophysiologic Disorder: No Hx Substance Use: Yes - Past Surgical History Past Surgical History: No Previous - Surgical History Hx Amputation: No Hx Appendectomy: No Hx Cardiac Catheterization: No Hx Cholecystectomy: No Hx Coronary Stent: No Hx Gastric Bypass Surgery: No Hx Hysterectomy: No Hx Joint Replacement: No Hx Kidney Transplant: No Hx Liver Transplant: No Hx Mastectomy: No Hx Musculoskeletal Surgery: No Hx Open Heart Surgery: No Hx Orthopedic Surgery: No Hx Splenectomy: No Hx Valve Replacement: No - Anesthesia Hx Anesthesia: No Hx Anesthesia Reactions: No Hx Malignant Hyperthermia: No - Suicidal Assessment Feels Threatened In Home Enviroment: No Family/Social History - Physician Review Nursing Documentation Reviewed: Yes Family/Social History: Unknown Family HX Smoking Status: Smoker Currrent Status Unknown Hx Alcohol Use: Yes Amount per day: 24 Hx Substance Use: Yes Allergies/Home Meds Allergies/Adverse Reactions: Allergies No Known Allergies Allergy (Verified 05/16/17 20:39) Review of Systems - Physician Review All systems were reviewed & negative as marked: Yes - Review of Systems Constitutional: Normal. absent: Fevers Eyes: Normal ENT: Normal Respiratory: Normal. absent: SOB, Cough Cardiovascular: Normal. absent: Chest Pain Gastrointestinal: Normal. absent: Abdominal Pain, Diarrhea, Nausea, Vomiting Genitourinary Male: Normal. absent: Dysuria, Frequency, Hematuria, Urinary Output Changes Musculoskeletal: Normal. absent: Back Pain, Neck Pain Skin: Normal. absent: Rash Neurological: Normal. absent: Headache, Dizziness Endocrine: Normal Hemo/Lymphatic: Normal Psychiatric: Normal Physical Exam Vital Signs Reviewed: Yes Vital Signs Temp Pulse Resp BP Pulse Ox 05/19/17 02:58 70 16 132/77 99 05/18/17 22:29 98.6 F 100 H 20 128/84 96 Temperature: Afebrile Blood Pressure: Normal Pulse: Regular Respiratory Rate: Normal Appearance: Positive for: Well-Appearing, Non-Toxic, Comfortable Pain Distress: None Mental Status: Positive for: Alert and Oriented X 3 - Systems Exam Head: Present: Atraumatic, Normocephalic Pupils: Present: PERRL Extroacular Muscles: Present: EOMI Conjunctiva: Present: Normal Mouth: Present: Moist Mucous Membranes Neck: Present: Normal Range of Motion Respiratory/Chest: Present: Clear to Auscultation, Good Air Exchange. No: Respiratory Distress, Accessory Muscle Use Cardiovascular: Present: Regular Rate and Rhythm, Normal S1, S2. No: Murmurs Abdomen: Present: Normal Bowel Sounds. No: Tenderness, Distention, Peritoneal Signs Back: Present: Normal Inspection Upper Extremity: Present: Normal Inspection. No: Cyanosis, Edema Lower Extremity: Present: Normal Inspection. No: Edema Neurological: Present: GCS=15, CN II-XII Intact, Speech Normal Skin: Present: Warm, Dry, Normal Color. No: Rashes Psychiatric: Present: Alert, Oriented x 3, Normal Insight, Normal Concentration Medical Decision Making ED Course and Treatment: 05/18/17 23:00 Impression: 41 year old male brought in for alcohol intoxication. Differential Diagnosis included but are not limited to: alcohol intoxication Plan: -- Reassess and disposition Prior Visits: Notes and results from previous visits were reviewed. On 05/16/2017, pt was seen in the Emergency department for abdominal pain. Pt was discharged home. Progress Notes: 05/19/17 06:03 Pt awake, alert, ambulating with steady gait. Pt in no acute distress, clinically sober. Pt stable for discharge. Re-evaluation Time: 06:03 Reassessment Condition: Re-examined, Improved - Scribe Statement The provider has reviewed the documentation as recorded by the Jeanetteibcassandra Zhou Provider Scribe Attestation: All medical record entries made by the Scribe were at my direction and personally dictated by me. I have reviewed the chart and agree that the record accurately reflects my personal performance of the history, physical exam, medical decision making, and the department course for this patient. I have also personally directed, reviewed, and agree with the discharge instructions and disposition. Disposition/Present on Arrival - Present on Arrival Any Indicators Present on Arrival: No History of DVT/PE: No History of Uncontrolled Diabetes: No Urinary Catheter: No History of Decub. Ulcer: No History Surgical Site Infection Following: None - Disposition Have Diagnosis and Disposition been Completed?: Yes Diagnosis: Alcohol abuse Disposition: HOME/ ROUTINE Disposition Time: 06:03 Patient Problems: Current Active Problems Problem Status Onset Alcohol abuse Acute Condition: GOOD Discharge Instructions (ExitCare): Alcohol Intoxication (ED) Referrals: Sheng Cole MD [Primary Care Provider] - Follow up with primary Forms: [employer] (Chinese)
[2017-05-19 02:58] VITALS: BP 132/77; PULSE 70; RESP 16; O2SAT 99
== END 2017-05-19 06:44 | disposition home or self-care (01) ==
LOC: ED 22:26
DX: F10.129 Alcohol abuse with intoxication, unspecified (principal); I10 Essential (primary) hypertension

== ENCOUNTER 2017-06-01 16:45 | Emergency (ER) | payer MEDICAID ==
[2017-06-01 16:57] VITALS: BMI 21.5
[2017-06-01 17:02] VITALS: RESP 18; TEMP 97.7
[2017-06-01] MEDS ORDERED: Morphine 4 mg/ml ISec IVP STA (17:17)
[2017-06-01] MEDS ORDERED: Sodium Chloride 0.9% 1,000 ML IV STA (17:17)
--- NOTE | 2017-06-01 17:36 | ED PDOC ---
Arrival/HPI - General Chief Complaint: Abdominal Pain Time Seen by Provider: 06/01/17 17:03 Historian: Patient - History of Present Illness Narrative History of Present Illness (Text): 06/01/17 17:33 42 year old male, whose past medical history includes pancreatitis and alcohol abuse, states that he drinks daily, who presents to the emergency department complaining of constant non-radiating mid abdominal pain for 3 hours, associated nausea and vomiting x2. Patient admits to have been drinking today. Patient denies any urinary symptoms, diarrhea, recent travel, CP, SOB or any other complaints at this time. Denies any h/o abdominal surgeries. Past Medical History - Provider Review Nursing Documentation Reviewed: Yes - Infectious Disease Hx of Infectious Diseases: None - Tetanus Immunization Tetanus Immunization: Unknown - Past Medical History Past Medical History: No Previous - Cardiac Hx Cardiac Disorders: Yes Hx Hypertension: Yes - Pulmonary Hx Respiratory Disorders: No - Neurological Hx Neurological Disorder: No - HEENT Hx HEENT Disorder: No - Renal Hx Renal Disorder: No - Endocrine/Metabolic Hx Endocrine Disorders: No - Hematological/Oncological Hx Blood Disorders: No - Integumentary Hx Dermatological Disorder: No - Musculoskeletal/Rheumatological Hx Musculoskeletal Disorders: No - Gastrointestinal Hx Gastrointestinal Disorders: Yes Hx Gastroesophageal Reflux: Yes Hx Pancreatitis: Yes - Genitourinary/Gynecological Hx Genitourinary Disorders: No Hx Sexually Transmitted Diseases: No - Psychiatric Hx Psychophysiologic Disorder: No Hx Substance Use: Yes - Past Surgical History Past Surgical History: No Previous - Surgical History Hx Amputation: No Hx Appendectomy: No Hx Cardiac Catheterization: No Hx Cholecystectomy: No Hx Coronary Stent: No Hx Gastric Bypass Surgery: No Hx Hysterectomy: No Hx Joint Replacement: No Hx Kidney Transplant: No Hx Liver Transplant: No Hx Mastectomy: No Hx Musculoskeletal Surgery: No Hx Open Heart Surgery: No Hx Orthopedic Surgery: No Hx Splenectomy: No Hx Valve Replacement: No - Anesthesia Hx Anesthesia: No Hx Anesthesia Reactions: No Hx Malignant Hyperthermia: No - Suicidal Assessment Feels Threatened In Home Enviroment: No Family/Social History - Physician Review Nursing Documentation Reviewed: Yes Family/Social History: Unknown Family HX Smoking Status: Smoker Currrent Status Unknown Hx Alcohol Use: Yes Frequency of alcohol use: Daily Amount per day: 24 Hx Substance Use: Yes Allergies/Home Meds Allergies/Adverse Reactions: Allergies No Known Allergies Allergy (Verified 05/30/17 21:36) Home Medications: Home Meds Medication Instructions Recorded Confirmed No Known Home Med 06/01/17 06/01/17 Review of Systems - Review of Systems Constitutional: Normal. absent: Fatigue, Weight Change, Fevers Respiratory: Normal. absent: SOB, Cough, Sputum Cardiovascular: Normal. absent: Chest Pain, Palpitations, Edema Gastrointestinal: Normal, Abdominal Pain, Nausea, Vomiting. absent: Stool Changes, Constipation Genitourinary Male: Normal. absent: Dysuria, Frequency, Hematuria Musculoskeletal: Normal. absent: Arthralgias, Back Pain, Neck Pain Skin: Normal. absent: Rash, Pruritis, Skin Lesions Neurological: Normal. absent: Headache, Dizziness, Focal Weakness Physical Exam - Physical Exam Narrative Physical Exam (Text): 06/01/17 17:37 GENERAL APPEARANCE: Patient is awake, alert, oriented x 3, in mild painful distress. SKIN: Warm, dry; (-) cyanosis. EYES: (+) injected b/l, (-) conjunctival pallor, (-) scleral icterus. ENMT: Mucous membranes dry. NECK: (-) tenderness, (-) stiffness, (-) lymphadenopathy. CHEST AND RESPIRATORY: (-) rales, (-) rhonchi, (-) wheezes; breath sounds equal bilaterally. HEART AND CARDIOVASCULAR: (-) irregularity; (-) murmur, (-) gallop. ABDOMEN AND GI: (-) distention. Bowel sounds active; (+) moderate diffuse abdominal tenderness, greatest in the epigastric area, (-) guarding, (-) rebound , (-) palpable masses, (-) CVA tenderness. EXTREMITIES: (-) deformity, (-) edema, (+) distal pulses. NEURO AND PSYCH: Mental status as above; (-) focal findings. Vital Signs Temp Pulse Resp BP Pulse Ox 06/01/17 20:06 78 18 124/76 98 06/01/17 18:02 75 18 128/75 99 06/01/17 16:58 97.7 F 82 18 132/85 99 Medical Decision Making ED Course and Treatment: 06/01/17 17:38 42 year old male, whose past medical history includes pancreatitis and alcohol abuse, states that he drinks daily, who presents to the emergency department complaining of constant non-radiating mid abdominal pain for 3 hours, associated nausea and vomiting. Patient last seen in this ED on 05/31 for similar symptoms, had a CT A/P which showed : minimally dilated loops of small bowel with stool formation suggesting delayed transit, findings may be related to ileus, but early partial obstruction not entirely excluded and chronic pancreatitis. Patient was seen and evaluated by the surgical technician and was cleared for outpatient f/u. Considering pt's symptoms and recent CT findings, will order CT again to see if there is any improvement of prior findings. Plan : - Labs - IVF - Morphine IV / Pepcid IV / Zofran IV - CT A/P w/ IV contrast On re-evaluation, patient reports significant improvement of pain. On exam, patient is laying in bed comfortably in no acute distress. Abdomen remains soft with minimal epigastric tenderness, no guarding or rebound. Diagnostics results reviewed and d/w the patient. CT results today show no acute ileus or evidence of acute SBO compared to prior study. Advised to follow up with primary care physician in 1-2 days without fail. Advised to take medication as prescribed. Return to the emergency room at any time for any new or worsening symptoms. Patient states he fully agrees with and understands discharge instructions. States that he agrees with the plan and disposition. Verbalized and repeated discharge instructions and plan. I have given the patient opportunity to ask any additional questions. - Lab Interpretations Lab Results: 06/01/17 17:25 06/01/17 17:25 Lab Results 06/01/17 17:25: Alcohol, Quantitative 377 H* 06/01/17 17:25: Sodium 147, Potassium 4.4, Chloride 104, Carbon Dioxide 31, Anion Gap 16, BUN 8, Creatinine 0.7 L, Est GFR ( Amer) > 60, Est GFR (Non -Af Amer) > 60, Random Glucose 137 H, Calcium 9.2, Total Bilirubin 0.9, AST 192 H D, ALT 70 H, Alkaline Phosphatase 181 H, Total Protein 8.4 H, Albumin 4.5, Globulin 3.9, Albumin/Globulin Ratio 1.2, Lipase 50 06/01/17 17:25: PT 12.2, INR 1.12 H, APTT 31.0 06/01/17 17:25: WBC 5.0, RBC 3.69, Hgb 13.1 L, Hct 38.4 L, MCV 104.1, MCH 35.5 H , MCHC 34.1, RDW 15.9 H, Plt Count 186, MPV 10.1, Gran % 42.8 L, Lymph % (Auto) 49.0 H, Coos % (Auto) 5.8, Eos % (Auto) 1.6, Baso % (Auto) 0.8, Gran # 2.14, Lymph # 2.5, Coos # 0.3, Eos # 0.1, Baso # 0.04 I have reviewed the lab results: Yes - RAD Interpretation Narrative RAD Interpretations (Text): 06/01/17 19:37 CT A/P w/ IV contrast : FINDINGS: Limitations: Motion artifact - mild. Lower thorax: No acute findings. ABDOMEN: Liver: Mild fatty infiltration. Too small to characterize lesion. Gallbladder and bile ducts: Questionable tiny gallstone vs artifact. No ductal dilation. Pancreas: Multiple calcifications within pancreas. No ductal dilation. Spleen: No splenomegaly. Adrenals: No mass. Kidneys and ureters: No mass. No hydronephrosis. Stomach and bowel: Stool formation within distal small bowel loops. Mild mural thickening vs underdistention of terminal ileum. Few scattered minimally distended loops of small bowel, likely ileus. Appendix: Normal caliber. No inflammation. PELVIS: Bladder: Unremarkable. Reproductive: Mildly enlarged prostate. ABDOMEN and PELVIS: Intraperitoneal space: No significant fluid collection. No free air. Bones/joints: No acute fracture. Soft tissues: Unremarkable. Vasculature: Unremarkable. No aneurysm. Lymph nodes: No pathologically enlarged lymph nodes. IMPRESSION: 1. Mild terminal enteritis vs underdistention. 2. Stool formation within small bowel may suggest delayed transit. 3. Chronic pancreatitis. 4. Incidental/non-acute findings are described above. Dictated By: Yunier Young MD Dictated Date/Time: 06/01/171932 Radiology Orders: 06/01/17 17:25 ABD & PELVIS IV CONTRAST ONLY [CT] Stat - Medication Orders Current Medication Orders: Discontinued Medications Famotidine (Pepcid) 20 mg IVP STAT STA Stop: 06/01/17 17:18 Last Admin: 06/01/17 17:27 Dose: 20 mg IVP Administration Document 06/01/17 17:27 GMD (Rec: 06/01/17 17:27 GMD [id number]) Charges for Administration # of IVP Administrations 1 Sodium Chloride (Sodium Chloride 0.9%) 1,000 mls @ 1,000 mls/hr IV .Q1H STA Stop: 06/01/17 18:16 Last Admin: 06/01/17 17:27 Dose: 1,000 mls/hr eMAR Start Stop Document 06/01/17 17:27 GMD (Rec: 06/01/17 17:27 GMD [id number]) Intravenous Solution Start Date 06/01/17 Start Time 17:27 End Date 06/01/17 End time 18:27 Total Infusion Time 60 Morphine Sulfate (Morphine) 4 mg IVP STAT STA Stop: 06/01/17 17:18 Last Admin: 06/01/17 17:27 Dose: 4 mg MAR Pain Assessment Document 06/01/17 17:27 GMD (Rec: 06/01/17 17:27 GMD [id number]) Pain Reassessment Is this a pain reassessment? No Sleep Is patient sleeping during reassessment? No Presence of Pain Presence of Pain Yes IVP Administration Document 06/01/17 17:27 GMD (Rec: 06/01/17 17:27 GMD [id number]) Charges for Administration # of IVP Administrations 1 Ondansetron HCl (Zofran Inj) 4 mg IVP STAT STA Stop: 06/01/17 17:18 Last Admin: 06/01/17 17:27 Dose: 4 mg IVP Administration Document 06/01/17 17:27 GMD (Rec: 06/01/17 17:27 GMD [id number]) Charges for Administration # of IVP Administrations 1 Disposition/Present on Arrival - Present on Arrival Any Indicators Present on Arrival: No History of DVT/PE: No History of Uncontrolled Diabetes: No Urinary Catheter: No History of Decub. Ulcer: No History Surgical Site Infection Following: None - Disposition Have Diagnosis and Disposition been Completed?: Yes Diagnosis: Abdominal pain, Alcohol abuse, Chronic pancreatitis Disposition: HOME/ ROUTINE Disposition Time: 19:51 Patient Plan: Discharge Condition: STABLE Discharge Instructions (ExitCare): Alcohol Intoxication (ED), Abdominal Pain ( ED) Print Language: [id number] Additional Instructions: Thank you for letting us take care of you today. You were treated for abdominal pain, alcohol intoxication, chronic pancreatitis. The emergency medical care you received today was directed at your acute symptoms. Return to the Emergency Department if your symptoms worsen, do not improve, or if you have any other problems. Please contact your doctor in 2 days for re-evaluation and follow up / or call one of the physicians/clinics you have been referred to that are listed on the Patient Visit Information form that is included in your discharge packet. Bring any paperwork you were given at discharge with you along with any medications you are taking to your follow up visit. Our treatment cannot replace ongoing medical care by a primary care provider (PCP) outside of the emergency department. Thank you for allowing the [facility] team to be part of your care today. If you had a CT scan: A Radiologist will review the ED reading if any change in treatment is needed we will contact you. Referrals: Michael Martinez Recandelario, [Primary Care Provider] - Follow up with primary [facility] at [facility] [Outside] - Follow up with primary Forms: [employer] (German)
[2017-06-01 17:44] LABS: ALB/GLOB RATIO 1.2 (1.1-1.8); ALKALINE PHOSPHATASE 181 U/L (38-126); ALT/SGPT 70 U/L (7-56); AST/SGOT 192 U/L (17-59); BILIRUBIN,TOTAL 0.9 mg/dL (0.2-1.3); BLOOD UREA NITROGEN 8 mg/dL (7-21); CALCIUM 9.2 mg/dL (8.4-10.5); CARBON DIOXIDE 31 mmol/L (21-33); CHLORIDE 104 mmol/L (98-107); GFR AFRICAN-AMERICAN > 60; GLUCOSE,RANDOM 137 mg/dL (70-110); LIPASE 50 U/L (23-300); POTASSIUM 4.4 mmol/L (3.6-5.0); SODIUM 147 mmol/L (132-148); TOTAL PROTEIN 8.4 g/dL (5.8-8.3)
[2017-06-01 18:01] LABS: BASO # 0.04 K/mm3 (0.0-2.0); BASO % 0.8 % (0.0-3.0); EOS # 0.1 (0.0-0.7); EOS % 1.6 % (1.5-5.0); GRAN # 2.14 (1.4-6.5); GRAN % 42.8 % (50.0-68.0); HEMATOCRIT 38.4 % (42.0-52.0); LYMPH # 2.5 (1.2-3.4); MEAN CELL VOLUME 104.1 fl (80.0-105.0); MEAN CORPUSCULAR HEMOGLOBIN 35.5 pg (25.0-35.0); MEAN CORPUSCULAR HGB CONC 34.1 g/dl (31.0-37.0); MEAN PLATELET VOLUME 10.1 fl (7.0-11.0); MONO # 0.3 (0.1-0.6); MONO % 5.8 % (1.0-6.0); RED CELL DISTRIBUTION WIDTH 15.9 % (11.5-14.5)
[2017-06-01 18:06] LABS: INR 1.12 (0.93-1.08)
[2017-06-01] MEDS ORDERED: Iohexol 350 MG/100 ML VIAL ONE (18:13)
--- NOTE | 2017-06-01 19:33 | CT ---
EXAM: CT Abdomen and Pelvis With Intravenous Contrast CLINICAL HISTORY: 42 years old, male; Pain; Abdominal pain; Other: Abd pain, last CT shows ileus TECHNIQUE: Axial computed tomography images of the abdomen and pelvis with intravenous contrast. All CT scans at this facility use one or more dose reduction techniques, viz.: automated exposure control; ma/kV adjustment per patient size (including targeted exams where dose is matched to indication; i.e. head); or iterative reconstruction technique. MIP reconstructed images were created and reviewed. Coronal and sagittal reformatted images were created and reviewed. CONTRAST: 100 mL of [id number] administered intravenously. COMPARISON: CT - ABD PELVIS W/O PO OR IV CONT 2017-05-31 00:54 FINDINGS: Limitations: Motion artifact - mild. Lower thorax: No acute findings. ABDOMEN: Liver: Mild fatty infiltration. Too small to characterize lesion. Gallbladder and bile ducts: Questionable tiny gallstone vs artifact. No ductal dilation. Pancreas: Multiple calcifications within pancreas. No ductal dilation. Spleen: No splenomegaly. Adrenals: No mass. Kidneys and ureters: No mass. No hydronephrosis. Stomach and bowel: Stool formation within distal small bowel loops. Mild mural thickening vs underdistention of terminal ileum. Few scattered minimally distended loops of small bowel, likely ileus. Appendix: Normal caliber. No inflammation. PELVIS: Bladder: Unremarkable. Reproductive: Mildly enlarged prostate. ABDOMEN and PELVIS: Intraperitoneal space: No significant fluid collection. No free air. Bones/joints: No acute fracture. Soft tissues: Unremarkable. Vasculature: Unremarkable. No aneurysm. Lymph nodes: No pathologically enlarged lymph nodes. IMPRESSION: 1. Mild terminal enteritis vs underdistention. 2. Stool formation within small bowel may suggest delayed transit. 3. Chronic pancreatitis. 4. Incidental/non-acute findings are described above.
[2017-06-01 20:06] VITALS: BP 124/76; PULSE 78; O2SAT 98
== END 2017-06-01 20:11 | disposition home or self-care (01) ==
LOC: ED 16:45
DX: K86.1 Other chronic pancreatitis (principal); F10.10 Alcohol abuse, uncomplicated; R10.9 Unspecified abdominal pain; I10 Essential (primary) hypertension
CPT/HCPCS: 74177; 80053; 80320; 83690; 85025; 85610; 85730; 96361; 96374; 96375; 99285; J2270; J2405; J7040; Q9967

== ENCOUNTER 2017-06-03 18:52 | Emergency (ER) | payer MEDICAID ==
[2017-06-03 18:52] VITALS: BMI 21.5
[2017-06-03 19:01] VITALS: RESP 16; TEMP 98.3
[2017-06-03] MEDS ORDERED: Morphine 2 mg/ml ISec IVP STA (19:36)
--- NOTE | 2017-06-03 19:43 | ED PDOC ---
Arrival/HPI <Carmina Greenwood - Last Filed: 06/03/17 21:04> - General Historian: Patient EM Caveat: Acuity of Condition - History of Present Illness Time/Duration: Prior to Arrival, 1-3 hours Symptom Onset: Gradual Symptom Course: Unchanged Quality: Aching Severity Level: 6 Activities at Onset: Light Context: Standing <Gloria Mancilla - Last Filed: 06/03/17 21:33> - General Chief Complaint: Abdominal Pain Time Seen by Provider: 06/03/17 19:13 - History of Present Illness Narrative History of Present Illness (Text): 06/03/17 19:38 42 years old male with PMH chronic pancreatitis, alcohol abuse, HTN, presents for epigastric pain for past 2 hours. Pt states that it is similar to the pain he has for his chronic pancreatitis. He is homeless, and "would like to get his morphine for pain." He describes the pain as dull, achy, radiating to the back , has some nausea and NBNB vomiting today. Pain started after drink 6-8 beers tonight. Pt denies diarrhea, constipation, fever, chills, headache, chest pain, sob, cough, hematochezia, urinary symptoms. Pt previously came to [facility] [address] abd pelvis was negative for ileus or SBO. No PMD (Gloria Mancilla) Associated Symptoms (Text): 06/03/17 19:43 Denies diarrhea, constipation, fever, chills, headache, chest pain, sob, cough, hematochezia, urinary symptoms. (Gloria Mancilla) Past Medical History - Provider Review Nursing Documentation Reviewed: Yes - Infectious Disease Hx of Infectious Diseases: None - Tetanus Immunization Tetanus Immunization: Unknown - Past Medical History Past Medical History: No Previous - Cardiac Hx Cardiac Disorders: Yes Hx Hypertension: Yes - Pulmonary Hx Respiratory Disorders: No - Neurological Hx Neurological Disorder: No - HEENT Hx HEENT Disorder: No - Renal Hx Renal Disorder: No - Endocrine/Metabolic Hx Endocrine Disorders: No - Hematological/Oncological Hx Blood Disorders: No - Integumentary Hx Dermatological Disorder: No - Musculoskeletal/Rheumatological Hx Musculoskeletal Disorders: No - Gastrointestinal Hx Gastrointestinal Disorders: Yes Hx Gastroesophageal Reflux: Yes Hx Pancreatitis: Yes - Genitourinary/Gynecological Hx Genitourinary Disorders: No Hx Sexually Transmitted Diseases: No - Psychiatric Hx Psychophysiologic Disorder: No Hx Substance Use: Yes - Past Surgical History Past Surgical History: No Previous - Surgical History Hx Amputation: No Hx Appendectomy: No Hx Cardiac Catheterization: No Hx Cholecystectomy: No Hx Coronary Stent: No Hx Gastric Bypass Surgery: No Hx Hysterectomy: No Hx Joint Replacement: No Hx Kidney Transplant: No Hx Liver Transplant: No Hx Mastectomy: No Hx Musculoskeletal Surgery: No Hx Open Heart Surgery: No Hx Orthopedic Surgery: No Hx Splenectomy: No Hx Valve Replacement: No - Anesthesia Hx Anesthesia: No Hx Anesthesia Reactions: No Hx Malignant Hyperthermia: No - Suicidal Assessment Feels Threatened In Home Enviroment: No <Gloria Mancilla - Last Filed: 06/03/17 21:33> Family/Social History - Physician Review Nursing Documentation Reviewed: Yes Family/Social History: No Known Family HX Smoking Status: Smoker Currrent Status Unknown Hx Alcohol Use: Yes Frequency of alcohol use: Daily Amount per day: 24 Hx Substance Use: Yes <Gloria Mancilla - Last Filed: 06/03/17 21:33> Allergies/Home Meds <Carmina Greenwood - Last Filed: 06/03/17 21:04> <Gloria Mancilla - Last Filed: 06/03/17 21:33> Allergies/Adverse Reactions: Allergies No Known Allergies Allergy (Verified 06/03/17 18:54) Home Medications: Home Meds Medication Instructions Recorded Confirmed Unobtainable 06/03/17 06/03/17 Review of Systems - Review of Systems Constitutional: absent: Fatigue, Fevers Eyes: absent: Vision Changes ENT: absent: Hearing Changes Respiratory: absent: SOB, Cough Cardiovascular: absent: Chest Pain, Palpitations Gastrointestinal: Abdominal Pain, Nausea, Vomiting. absent: Constipation, Diarrhea, Hematochezia, Hematemesis, Food Intolerance Genitourinary Male: absent: Dysuria, Hematuria Musculoskeletal: Back Pain Skin: absent: Rash Neurological: absent: Headache, Dizziness Endocrine: absent: Diaphoresis Psychiatric: absent: Anxiety <Gloria Mancilla - Last Filed: 06/03/17 21:33> Physical Exam Vital Signs Reviewed: Yes <Carmina Greenwood - Last Filed: 06/03/17 21:04> Temperature: Afebrile Blood Pressure: Normal Pulse: Tachycardic Respiratory Rate: Normal Appearance: Positive for: Uncomfortable Pain Distress: Mild Mental Status: Positive for: Alert and Oriented X 3 - Systems Exam Head: Present: Atraumatic, Normocephalic Pupils: Present: PERRL Extroacular Muscles: Present: EOMI Conjunctiva: Present: Normal Mouth: Present: Moist Mucous Membranes Pharnyx: No: ERYTHEMA Neck: Present: Normal Range of Motion Respiratory/Chest: Present: Clear to Auscultation Cardiovascular: Present: Normal S1, S2, Tachycardic Abdomen: Present: Tenderness (TTP in epigastric area), Normal Bowel Sounds. No : Distention, Rebound, McBurney's Point Tender, Rovsing's Sign Present Back: No: CVA Tenderness Upper Extremity: Present: NORMAL PULSES Lower Extremity: No: Edema, CALF TENDERNESS Neurological: Present: GCS=15, Speech Normal Skin: Present: Warm, Dry Psychiatric: Present: Alert, Oriented x 3, Intoxicated <Gloria Mancilla - Last Filed: 06/03/17 21:33> Vital Signs Temp Pulse Resp BP Pulse Ox 06/03/17 18:55 98.3 F 99 H 16 150/86 99 Medical Decision Making <Carmina Greenwood - Last Filed: 06/03/17 21:04> - Lab Interpretations I have reviewed the lab results: Yes Interpretation: No sign. chg./baseline <Gloria Mancilla - Last Filed: 06/03/17 21:33> ED Course and Treatment: A 42 year old male with epigastric pain. In agreement with resident note, which includes further HPI details. Patient was seen and evaluated with resident, came up with plan and treatment together. (Carmina Greenwood) 06/03/17 19:45 42 years old male with PMH chronic pancreatitis, presents for epigastric pain: - CBC, CMP, lipase - 1L NS - morphine/zofran/pepcid IV - Reassess CT abd pelvis 06/01/17: 1. Mild terminal enteritis vs underdistention. 2. Stool formation within small bowel may suggest delayed transit. 3. Chronic pancreatitis. 06/03/17 21:31 Pt feels better after medications. Lipase normal. Other labs similar to baseline. Will discharge. If symptoms return or worsen, pt thoroughly instructed to come to the ER. Pt verbalizes understanding. (Gloria Mancilla) - Lab Interpretations Narrative Lab Interpretation (Text): 06/03/17 21:25 elevated LFTs, ALP, normal lipase (Gloria Mancilla) Lab Results: 06/03/17 20:27 06/03/17 20:27 Lab Results 06/03/17 20:27: Sodium 147, Potassium 4.2, Chloride 102, Carbon Dioxide 34 H, Anion Gap 15, BUN 8, Creatinine 0.7 L, Est GFR ( Amer) > 60, Est GFR (Non -Af Amer) > 60, Random Glucose 109, Calcium 9.2, Total Bilirubin 1.1, AST 329 H D, ALT 91 H, Alkaline Phosphatase 193 H, Total Protein 8.7 H, Albumin 4.6, Globulin 4.1, Albumin/Globulin Ratio 1.1, Lipase 55 06/03/17 20:27: WBC 4.5, RBC 3.52, Hgb 12.3 L, Hct 36.7 L, MCV 104.3, MCH 34.9, MCHC 33.5, RDW 16.1 H, Plt Count 163, MPV 10.9, Gran % 44.8 L, Lymph % (Auto) 48.3 H, [place] % (Auto) 4.9, Eos % (Auto) 1.6, Baso % (Auto) 0.4, Gran # 2.02, Lymph # 2.2, [place] # 0.2, Eos # 0.1, Baso # 0.02 - Medication Orders Current Medication Orders: Discontinued Medications Famotidine (Pepcid) 20 mg IVP STAT STA Stop: 06/03/17 19:37 Last Admin: 06/03/17 20:25 Dose: 20 mg IVP Administration Document 06/03/17 20:25 HI (Rec: 06/03/17 20:26 [facility]) Charges for Administration # of IVP Administrations 1 Sodium Chloride (Sodium Chloride 0.9%) 1,000 mls @ 999 mls/hr IV .Q1H1M STA Stop: 06/03/17 20:47 Last Admin: 06/03/17 20:25 Dose: 999 mls/hr eMAR Start Stop Document 06/03/17 20:25 HI (Rec: 06/03/17 20:25 [facility]) Intravenous Solution Start Date 06/03/17 Start Time 20:25 Morphine Sulfate (Morphine) 2 mg IVP STAT STA Stop: 06/03/17 19:37 Last Admin: 06/03/17 20:26 Dose: 2 mg MAR Pain Assessment Document 06/03/17 20:26 HI (Rec: 06/03/17 20:26 HI [place] [id number]) Pain Reassessment Is this a pain reassessment? No Sleep Is patient sleeping during reassessment? No Presence of Pain Presence of Pain Yes IVP Administration Document 06/03/17 20:26 HI (Rec: 06/03/17 20:26 [facility] Charges for Administration # of IVP Administrations 1 Ondansetron HCl (Zofran Inj) 4 mg IVP STAT STA Stop: 06/03/17 19:37 Last Admin: 06/03/17 20:25 Dose: 4 mg IVP Administration Document 06/03/17 20:25 HI (Rec: 06/03/17 20:25 [place] [id number]) Charges for Administration # of IVP Administrations 1 - PA / INDUSTRIAL HYGIENIST / Resident Statement BOOKER has reviewed & agrees with the documentation as recorded. BOOKER has examined the patient and agrees with the treatment plan. <Carmina Greenwood - Last Filed: 06/03/17 21:04> - PA / INDUSTRIAL HYGIENIST / Resident Statement BOOKER has reviewed & agrees with the documentation as recorded. BOOKER has examined the patient and agrees with the treatment plan. <Gloria Mancilla - Last Filed: 06/03/17 21:33> Disposition/Present on Arrival <Carmina Greenwood - Last Filed: 06/03/17 21:04> - Present on Arrival Any Indicators Present on Arrival: No History of DVT/PE: No History of Uncontrolled Diabetes: No Urinary Catheter: No History of Decub. Ulcer: No History Surgical Site Infection Following: None - Disposition Have Diagnosis and Disposition been Completed?: Yes Disposition Time: 21:25 Patient Plan: Discharge <Gloria Mancilla - Last Filed: 06/03/17 21:33> - Disposition Diagnosis: Chronic pancreatitis due to acute alcohol intoxication, Alcoholic gastritis Diagnosis: (Ruled Out): Chronic pancreatitis Patient Problems: Current Active Problems Problem Status Onset Chronic pancreatitis due to acute alcohol intoxication Acute Condition: STABLE Discharge Instructions (ExitCare): Pancreatitis (ED), Abuse of Alcohol (ED), Gastritis (ED) Print Language: MALAY Additional Instructions: - Please follow up with PMD in 2-3 days. - If symptoms worsen or any concerns, please return to the ER. Referrals: Michael Cevallos, [Primary Care Provider] - Follow up with primary Forms: ALOSKO (Urdu)
[2017-06-03] MEDS ORDERED: Sodium Chloride 0.9% 1,000 ML IV STA (19:47)
[2017-06-03 20:37] LABS: BASO # 0.02 K/mm3 (0.0-2.0); BASO % 0.4 % (0.0-3.0); EOS # 0.1 (0.0-0.7); EOS % 1.6 % (1.5-5.0); GRAN # 2.02 (1.4-6.5); GRAN % 44.8 % (50.0-68.0); HEMATOCRIT 36.7 % (42.0-52.0); LYMPH # 2.2 (1.2-3.4); LYMPH % 48.3 % (22.0-35.0); MEAN CELL VOLUME 104.3 fl (80.0-105.0); MEAN CORPUSCULAR HEMOGLOBIN 34.9 pg (25.0-35.0); MEAN CORPUSCULAR HGB CONC 33.5 g/dl (31.0-37.0); MEAN PLATELET VOLUME 10.9 fl (7.0-11.0); MONO # 0.2 (0.1-0.6); MONO % 4.9 % (1.0-6.0); RED CELL DISTRIBUTION WIDTH 16.1 % (11.5-14.5); WHITE BLOOD COUNT 4.5 10^3/ul (4.5-11.0)
[2017-06-03 20:47] LABS: ALB/GLOB RATIO 1.1 (1.1-1.8); ALKALINE PHOSPHATASE 193 U/L (38-126); ALT/SGPT 91 U/L (7-56); AST/SGOT 329 U/L (17-59); BLOOD UREA NITROGEN 8 mg/dL (7-21); CALCIUM 9.2 mg/dL (8.4-10.5); CARBON DIOXIDE 34 mmol/L (21-33); CHLORIDE 102 mmol/L (98-107); GFR AFRICAN-AMERICAN > 60; GLUCOSE,RANDOM 109 mg/dL (70-110); LIPASE 55 U/L (23-300); SODIUM 147 mmol/L (132-148); TOTAL PROTEIN 8.7 g/dL (5.8-8.3)
[2017-06-03 20:54] LABS: BILIRUBIN,TOTAL 1.1 mg/dL (0.2-1.3); POTASSIUM 4.2 mmol/L (3.6-5.0)
[2017-06-03 21:43] VITALS: BP 122/70; PULSE 82; O2SAT 100
== END 2017-06-03 21:43 | disposition home or self-care (01) ==
LOC: ED 18:52
DX: K86.0 Alcohol-induced chronic pancreatitis (principal); K29.20 Alcoholic gastritis without bleeding; I10 Essential (primary) hypertension; Z59.0 Homelessness; F10.129 Alcohol abuse with intoxication, unspecified
CPT/HCPCS: 80053; 83690; 85025; 96374; 96375; 99285; J2270; J2405; J7040

== ENCOUNTER 2017-06-07 23:09 | Emergency (ER) | payer MEDICAID ==
[2017-06-07 23:10] VITALS: BMI 21.5
[2017-06-08] MEDS ORDERED: Alum-Mag Hydrox-Simethicone Susp (30 mL) PO STA (00:22)
[2017-06-08] MEDS ORDERED: Atrop/Hyosc/Scopal/PB Elixir (120 ml) PO STA (00:23)
[2017-06-08 00:44] VITALS: RESP 18
[2017-06-08 00:51] LABS: BASO # 0.03 K/mm3 (0.0-2.0); BASO % 0.4 % (0.0-3.0); EOS # 0.2 (0.0-0.7); GRAN # 3.87 (1.4-6.5); GRAN % 52.5 % (50.0-68.0); HEMATOCRIT 34.4 % (42.0-52.0); LYMPH % 40.1 % (22.0-35.0); MEAN CELL VOLUME 103.6 fl (80.0-105.0); MEAN CORPUSCULAR HEMOGLOBIN 35.2 pg (25.0-35.0); MEAN PLATELET VOLUME 10.2 fl (7.0-11.0); MONO # 0.4 (0.1-0.6); RED CELL DISTRIBUTION WIDTH 15.8 % (11.5-14.5); WHITE BLOOD COUNT 7.4 10^3/ul (4.5-11.0)
[2017-06-08 01:08] LABS: ALB/GLOB RATIO 1.2 (1.1-1.8); ALKALINE PHOSPHATASE 224 U/L (38-126); ALT/SGPT 170 U/L (7-56); AST/SGOT 438 U/L (17-59); BILIRUBIN,TOTAL 1.7 mg/dL (0.2-1.3); BLOOD UREA NITROGEN 6 mg/dL (7-21); CALCIUM 9.4 mg/dL (8.4-10.5); CARBON DIOXIDE 32 mmol/L (21-33); CHLORIDE 96 mmol/L (98-107); GFR AFRICAN-AMERICAN > 60; GLUCOSE,RANDOM 124 mg/dL (70-110); LIPASE 16 U/L (23-300); POTASSIUM 3.4 mmol/L (3.6-5.0); SODIUM 138 mmol/L (132-148); TOTAL PROTEIN 8.3 g/dL (5.8-8.3)
--- NOTE | 2017-06-08 01:50 | ED PDOC ---
Arrival/HPI - General Chief Complaint: Abdominal Pain Time Seen by Provider: 06/08/17 00:00 Historian: Patient - History of Present Illness Narrative History of Present Illness (Text): 06/08/17 00:05 42 year old male, whose past medical history includes, alcohol abuse, hypertension, and chronic abdominal pain, who is well-known to the emergency department, presents to the emergency department by EMS complaining of abdominal pain associated with vomiting. Patient reports he vomited 5 times and his pain is located on the midline epigastric which is his usual pain. Patient reports diarrhea, but denies chest pain, shortness of breath, or any other complaints. PMD: Dr. Sheng Cole Symptom Onset: Other (Constant) Symptom Course: Unchanged Activities at Onset: Light Context: Home Past Medical History - Provider Review Nursing Documentation Reviewed: Yes - Infectious Disease Hx of Infectious Diseases: None - Tetanus Immunization Tetanus Immunization: Unknown - Past Medical History Past Medical History: No Previous - Cardiac Hx Cardiac Disorders: Yes Hx Hypertension: Yes - Pulmonary Hx Respiratory Disorders: No - Neurological Hx Neurological Disorder: No - HEENT Hx HEENT Disorder: No - Renal Hx Renal Disorder: No - Endocrine/Metabolic Hx Endocrine Disorders: No - Hematological/Oncological Hx Blood Disorders: No - Integumentary Hx Dermatological Disorder: No - Musculoskeletal/Rheumatological Hx Musculoskeletal Disorders: No - Gastrointestinal Hx Gastrointestinal Disorders: Yes Hx Gastroesophageal Reflux: Yes Hx Pancreatitis: Yes - Genitourinary/Gynecological Hx Genitourinary Disorders: No Hx Sexually Transmitted Diseases: No - Psychiatric Hx Psychophysiologic Disorder: No Hx Substance Use: Yes - Past Surgical History Past Surgical History: No Previous - Surgical History Hx Amputation: No Hx Appendectomy: No Hx Cardiac Catheterization: No Hx Cholecystectomy: No Hx Coronary Stent: No Hx Gastric Bypass Surgery: No Hx Hysterectomy: No Hx Joint Replacement: No Hx Kidney Transplant: No Hx Liver Transplant: No Hx Mastectomy: No Hx Musculoskeletal Surgery: No Hx Open Heart Surgery: No Hx Orthopedic Surgery: No Hx Splenectomy: No Hx Valve Replacement: No - Anesthesia Hx Anesthesia: No Hx Anesthesia Reactions: No Hx Malignant Hyperthermia: No - Suicidal Assessment Feels Threatened In Home Enviroment: No Family/Social History - Physician Review Nursing Documentation Reviewed: Yes Family/Social History: No Known Family HX Smoking Status: Smoker Currrent Status Unknown Hx Alcohol Use: Yes Amount per day: 24 Hx Substance Use: Yes Allergies/Home Meds Allergies/Adverse Reactions: Allergies No Known Allergies Allergy (Verified 06/07/17 23:41) Review of Systems - Physician Review All systems were reviewed & negative as marked: Yes - Review of Systems Respiratory: absent: SOB Cardiovascular: absent: Chest Pain Gastrointestinal: Abdominal Pain, Diarrhea, Vomiting Physical Exam Vital Signs Reviewed: Yes Vital Signs Temp Pulse Resp BP Pulse Ox 06/07/17 23:10 97.9 F 95 H 18 137/112 H 99 Temperature: Afebrile Blood Pressure: Hypertensive Pulse: Tachycardic Respiratory Rate: Normal Appearance: Positive for: Well-Appearing, Non-Toxic, Comfortable, Other ( Disheveled and unkept) Pain Distress: None Mental Status: Positive for: Alert and Oriented X 3 - Systems Exam Head: Present: Atraumatic, Normocephalic Pupils: Present: PERRL Extroacular Muscles: Present: EOMI Conjunctiva: Present: Normal Mouth: Present: Moist Mucous Membranes Neck: Present: Normal Range of Motion Respiratory/Chest: Present: Clear to Auscultation, Good Air Exchange. No: Respiratory Distress, Accessory Muscle Use Cardiovascular: Present: Regular Rate and Rhythm, Normal S1, S2. No: Murmurs Abdomen: Present: Tenderness (Mild epigastric tenderness), Normal Bowel Sounds. No: Distention, Peritoneal Signs, Rebound, Guarding Back: Present: Normal Inspection Upper Extremity: Present: Normal Inspection. No: Cyanosis, Edema Lower Extremity: Present: Normal Inspection. No: Edema Neurological: Present: GCS=15, Speech Normal, Motor Func Grossly Intact Skin: Present: Warm, Dry, Normal Color. No: Rashes Psychiatric: Present: Alert, Oriented x 3, Normal Insight, Normal Concentration Medical Decision Making ED Course and Treatment: 06/08/17 00:05 Impression: 42 year old male presents complaining of midline epigastric pain associated with vomiting and diarrhea. Plan: -- Labs -- Elixir -- Maalox Plus 30ml -- Norvasc -- Reassess and disposition Prior Visits: Notes and results from previous visits were reviewed. Patient was last seen in the emergency department on 06/03/17 presents for epigastric pain for 2 hours. Progress Notes: 06/08/17 03:31 Labs show chronic transaminitis and chronic hypertension. Will refill medications. Patient's pain has improved. - Lab Interpretations Lab Results: 06/08/17 00:30 06/08/17 00:30 Lab Results 06/08/17 00:30: Sodium 138, Potassium 3.4 L, Chloride 96 L, Carbon Dioxide 32, Anion Gap 13, BUN 6 L, Creatinine 0.8, Est GFR ( Amer) > 60, Est GFR (Non -Af Amer) > 60, Random Glucose 124 H, Calcium 9.4, Total Bilirubin 1.7 H, AST 438 H D, ALT 170 H, Alkaline Phosphatase 224 H, Total Protein 8.3, Albumin 4.5, Globulin 3.8, Albumin/Globulin Ratio 1.2, Lipase 16 L 06/08/17 00:30: WBC 7.4 D, RBC 3.32 L, Hgb 11.7 L, Hct 34.4 L, MCV 103.6, MCH 35.2 H, MCHC 34.0, RDW 15.8 H, Plt Count 126, MPV 10.2, Gran % 52.5, Lymph % ( Auto) 40.1 H, [place] % (Auto) 5.0, Eos % (Auto) 2.0, Baso % (Auto) 0.4, Gran # 3.87, Lymph # 3.0, [place] # 0.4, Eos # 0.2, Baso # 0.03 I have reviewed the lab results: Yes - Medication Orders Current Medication Orders: Discontinued Medications Al Hydrox/Mg Hydrox/Simethicone (Maalox Plus 30 Ml) 30 ml PO STAT STA Stop: 06/08/17 00:23 Last Admin: 06/08/17 00:33 Dose: 30 ml Amlodipine Besylate (Norvasc) 10 mg PO STAT STA Stop: 06/08/17 00:45 Belladonna/Phenobarbital ( Elixir) 5 ml PO STAT STA Stop: 06/08/17 00:24 Last Admin: 06/08/17 00:33 Dose: 5 ml - Scribe Statement The provider has reviewed the documentation as recorded by the Becca Molina Provider Scribe Attestation: All medical record entries made by the Scribe were at my direction and personally dictated by me. I have reviewed the chart and agree that the record accurately reflects my personal performance of the history, physical exam, medical decision making, and the department course for this patient. I have also personally directed, reviewed, and agree with the discharge instructions and disposition. Disposition/Present on Arrival - Present on Arrival Any Indicators Present on Arrival: No History of DVT/PE: No History of Uncontrolled Diabetes: No Urinary Catheter: No History of Decub. Ulcer: No History Surgical Site Infection Following: None - Disposition Have Diagnosis and Disposition been Completed?: Yes Diagnosis: Alcohol abuse, Transaminitis, Abdominal pain, Hypertension Disposition: HOME/ ROUTINE Disposition Time: 03:38 Patient Plan: Discharge Condition: IMPROVED Discharge Instructions (ExitCare): Abdominal Pain (ED), Hypertension (ED) Prescriptions: hydroCHLOROthiazide [Hydrodiuril] 25 mg PO DAILY #30 tab Referrals: Sheng Cole MD [Primary Care Provider] - Follow up with primary Forms: [employer] (Bengali)
[2017-06-08 03:46] VITALS: BP 133/89; PULSE 88; TEMP 98; O2SAT 96
== END 2017-06-08 03:53 | disposition home or self-care (01) ==
LOC: ED 23:09
DX: I10 Essential (primary) hypertension (principal); R74.0 Nonspecific elevation of levels of transaminase and lactic acid dehydrogenase [LDH]; R10.9 Unspecified abdominal pain; F10.10 Alcohol abuse, uncomplicated; Y90.9 Presence of alcohol in blood, level not specified; F17.210 Nicotine dependence, cigarettes, uncomplicated

== ENCOUNTER 2017-06-14 23:09 | Emergency (ER) | payer MEDICAID ==
[2017-06-14 23:10] VITALS: BMI 21.5
--- NOTE | 2017-06-14 23:33 | ED PDOC ---
Arrival/HPI - General Chief Complaint: Abdominal Pain Time Seen by Provider: 06/14/17 23:26 Historian: Patient - History of Present Illness Narrative History of Present Illness (Text): 06/14/17 23:33 Felix Glasgow is a 42 year male, whose past medical history includes chronic pancreatitis, hypertension and alcohol abuse, presents to the Emergency department for epigastric pain tonight. Patient also admits to alcohol consumption tonight. Patient denies chest pain, shortness of breath, headache, fever, chills, cough, nausea, vomiting, urinary problems, abnormal gait or any other complaints. Time/Duration: Prior to Arrival Symptom Onset: Gradual Symptom Course: Unchanged Quality: Aching Activities at Onset: Light Past Medical History - Provider Review Nursing Documentation Reviewed: Yes - Infectious Disease Hx of Infectious Diseases: None - Tetanus Immunization Tetanus Immunization: Unknown - Past Medical History Past Medical History: No Previous - Cardiac Hx Cardiac Disorders: Yes Hx Hypertension: Yes - Pulmonary Hx Respiratory Disorders: No - Neurological Hx Neurological Disorder: No - HEENT Hx HEENT Disorder: No - Renal Hx Renal Disorder: No - Endocrine/Metabolic Hx Endocrine Disorders: No - Hematological/Oncological Hx Blood Disorders: No - Integumentary Hx Dermatological Disorder: No - Musculoskeletal/Rheumatological Hx Musculoskeletal Disorders: No - Gastrointestinal Hx Gastrointestinal Disorders: Yes Hx Gastroesophageal Reflux: Yes Hx Pancreatitis: Yes - Genitourinary/Gynecological Hx Genitourinary Disorders: No Hx Sexually Transmitted Diseases: No - Psychiatric Hx Psychophysiologic Disorder: No Hx Substance Use: Yes - Past Surgical History Past Surgical History: No Previous - Surgical History Hx Amputation: No Hx Appendectomy: No Hx Cardiac Catheterization: No Hx Cholecystectomy: No Hx Coronary Stent: No Hx Gastric Bypass Surgery: No Hx Hysterectomy: No Hx Joint Replacement: No Hx Kidney Transplant: No Hx Liver Transplant: No Hx Mastectomy: No Hx Musculoskeletal Surgery: No Hx Open Heart Surgery: No Hx Orthopedic Surgery: No Hx Splenectomy: No Hx Valve Replacement: No - Anesthesia Hx Anesthesia: No Hx Anesthesia Reactions: No Hx Malignant Hyperthermia: No - Suicidal Assessment Feels Threatened In Home Enviroment: No Family/Social History - Physician Review Nursing Documentation Reviewed: Yes Family/Social History: No Known Family HX Smoking Status: Smoker Currrent Status Unknown Hx Alcohol Use: Yes Amount per day: 24 Hx Substance Use: Yes Allergies/Home Meds Allergies/Adverse Reactions: Allergies No Known Allergies Allergy (Verified 06/07/17 23:41) Review of Systems - Physician Review All systems were reviewed & negative as marked: Yes - Review of Systems Constitutional: Normal. absent: Fevers Eyes: Normal ENT: Normal Respiratory: Normal. absent: SOB, Cough Cardiovascular: Normal. absent: Chest Pain Gastrointestinal: Abdominal Pain. absent: Diarrhea, Nausea, Vomiting Genitourinary Male: Normal. absent: Dysuria, Frequency, Hematuria, Urinary Output Changes Musculoskeletal: absent: Back Pain, Neck Pain Skin: Normal. absent: Rash Neurological: Normal. absent: Headache, Dizziness Endocrine: Normal. absent: Diaphoresis Psychiatric: Normal Physical Exam Vital Signs Reviewed: Yes Vital Signs Temp Pulse Resp BP Pulse Ox 06/15/17 01:10 67 18 134/74 99 06/14/17 23:35 98.1 F 64 18 132/74 99 Temperature: Afebrile Blood Pressure: Normal Pulse: Regular Respiratory Rate: Normal Appearance: Positive for: Well-Appearing, Non-Toxic, Comfortable Pain Distress: None Mental Status: Positive for: Alert and Oriented X 3 - Systems Exam Head: Present: Atraumatic, Normocephalic Pupils: Present: PERRL Extroacular Muscles: Present: EOMI Conjunctiva: Present: Normal Mouth: Present: Moist Mucous Membranes Neck: Present: Normal Range of Motion Respiratory/Chest: Present: Clear to Auscultation, Good Air Exchange. No: Respiratory Distress, Accessory Muscle Use Cardiovascular: Present: Regular Rate and Rhythm, Normal S1, S2. No: Murmurs Abdomen: Present: Normal Bowel Sounds. No: Tenderness, Distention, Peritoneal Signs Back: Present: Normal Inspection Upper Extremity: Present: Normal Inspection. No: Cyanosis, Edema Lower Extremity: Present: Normal Inspection. No: Edema Neurological: Present: GCS=15, CN II-XII Intact, Speech Normal Skin: Present: Warm, Dry, Normal Color. No: Rashes Psychiatric: Present: Alert, Oriented x 3, Normal Insight, Normal Concentration Medical Decision Making ED Course and Treatment: 06/14/17 23:33 Impression: 42 year old male presents to the Emergency department for epigastric pain. Differential Diagnosis included but are not limited to: gastritis vs. pancreatitis Plan: -- Labs, Lipase -- IV Fluids -- Elixir -- Pepcid -- Toradol Prior Visits: Notes and results from previous visits were reviewed. On 06/07/17, patient presented to the Emergency department for abdominal pain associated with vomitting. Patient was discharged home. Progress Notes: 06/15/17 02:45 On reevaluation the patient feels better and is in no acute distress. I have discussed the results and plan with the patient, who expresses understanding. Patient given the opportunity to ask question, all questions were answered and there is agreement with the plan to discharge the patient home. Patient is stable for discharge. Patient was instructed to follow up with physician/clinic in 1-2 days or return if symptoms persist/worsen or new concerning symptoms arise. - Lab Interpretations Lab Results: 06/14/17 23:55 06/14/17 23:55 Lab Results 06/14/17 23:55: WBC 4.0 L D, RBC 3.13 L, Hgb 10.8 L, Hct 33.3 L, MCV 106.4 H, MCH 34.5, MCHC 32.4, RDW 16.4 H, Plt Count 151, MPV 9.4 06/14/17 23:55: Sodium 148, Potassium 3.8, Chloride 108 H, Carbon Dioxide 30, Anion Gap 14, BUN 7, Creatinine 0.7 L, Est GFR ( Amer) > 60, Est GFR (Non -Af Amer) > 60, Random Glucose 118 H, Calcium 8.7, Total Bilirubin 0.6, AST 92 H D, ALT 68 H, Alkaline Phosphatase 150 H D, Total Protein 7.3, Albumin 4.0, Globulin 3.4, Albumin/Globulin Ratio 1.2, Lipase 21 L I have reviewed the lab results: Yes - Medication Orders Current Medication Orders: Discontinued Medications Al Hydrox/Mg Hydrox/Simethicone (Maalox Plus 30 Ml) 30 ml PO STAT STA Stop: 06/14/17 23:56 Last Admin: 06/15/17 00:05 Dose: 30 ml Belladonna/Phenobarbital ( Elixir) 5 ml PO STAT STA Stop: 06/14/17 23:56 Last Admin: 06/15/17 00:05 Dose: 5 ml Famotidine (Pepcid) 20 mg IVP STAT STA Stop: 06/14/17 23:55 Last Admin: 06/15/17 00:05 Dose: 20 mg IVP Administration Document 06/15/17 00:05 PRETTY (Rec: 06/15/17 00:28 [id number]) Charges for Administration # of IVP Administrations 1 Sodium Chloride (Sodium Chloride 0.9%) 1,000 mls @ 999 mls/hr IV .Q1H1M STA Stop: 06/15/17 00:45 Last Admin: 06/15/17 00:05 Dose: 999 mls/hr eMAR Start Stop Document 06/15/17 00:05 JO (Rec: 06/15/17 00:27 [id number]) Intravenous Solution Start Date 06/15/17 Start Time 00:05 End Date 06/15/17 End time 01:05 Total Infusion Time 60 Ketorolac Tromethamine (Toradol) 30 mg IVP ONCE ONE Stop: 06/14/17 23:55 Last Admin: 06/15/17 00:05 Dose: 30 mg MAR Pain Assessment Document 06/15/17 00:05 JO (Rec: 06/15/17 00:28 [id number]) Pain Reassessment Is this a pain reassessment? No Sleep Is patient sleeping during reassessment? No Presence of Pain Presence of Pain Yes Pain Scale Used Pain Scale Used Numeric Location Pain Location Body Site Abdomen Description Intensity of Pain at present 7 IVP Administration Document 06/15/17 00:05 [facility] (Rec: 06/15/17 00:28 [id number]) Charges for Administration # of IVP Administrations 1 - Scribe Statement The provider has reviewed the documentation as recorded by the Scribe Mary Stone under supervision of Catherine Zhou. All medical record entries made by the Scribe were at my direction and personally dictated by me. I have reviewed the chart and agree that the record accurately reflects my personal performance of the history, physical exam, medical decision making, and the department course for this patient. I have also personally directed, reviewed, and agree with the discharge instructions and disposition. Disposition/Present on Arrival - Present on Arrival Any Indicators Present on Arrival: No History of DVT/PE: No History of Uncontrolled Diabetes: No Urinary Catheter: No History of Decub. Ulcer: No History Surgical Site Infection Following: None - Disposition Have Diagnosis and Disposition been Completed?: Yes Diagnosis: Gastritis Disposition: HOME/ ROUTINE Disposition Time: 02:45 Patient Plan: Discharge Patient Problems: Current Active Problems Problem Status Onset Gastritis Acute Condition: STABLE Discharge Instructions (ExitCare): Gastritis (ED) Additional Instructions: Take meds as prescribed/avoid drinking alcohol/follow up with your doctor this week Prescriptions: Famotidine [Pepcid] 20 mg PO BID PRN #24 tab PRN Reason: Dyspepsia Referrals: Sheng Cole MD [Primary Care Provider] - Follow up with primary Forms: [employer] ([place])
[2017-06-14 23:36] VITALS: RESP 18; TEMP 98.1; O2SAT 99
[2017-06-14] MEDS ORDERED: Sodium Chloride 0.9% 1,000 ML IV STA (23:45)
[2017-06-14] MEDS ORDERED: Atrop/Hyosc/Scopal/PB Elixir (120 ml) PO STA (23:55)
[2017-06-14] MEDS ORDERED: Alum-Mag Hydrox-Simethicone Susp (30 mL) PO STA (23:55)
[2017-06-15 00:21] LABS: HEMATOCRIT 33.3 % (42.0-52.0); MEAN CELL VOLUME 106.4 fl (80.0-105.0); MEAN CORPUSCULAR HEMOGLOBIN 34.5 pg (25.0-35.0); MEAN CORPUSCULAR HGB CONC 32.4 g/dl (31.0-37.0); MEAN PLATELET VOLUME 9.4 fl (7.0-11.0); RED CELL DISTRIBUTION WIDTH 16.4 % (11.5-14.5)
[2017-06-15 00:42] LABS: ALB/GLOB RATIO 1.2 (1.1-1.8); ALKALINE PHOSPHATASE 150 U/L (38-126); ALT/SGPT 68 U/L (7-56); AST/SGOT 92 U/L (17-59); BILIRUBIN,TOTAL 0.6 mg/dL (0.2-1.3); BLOOD UREA NITROGEN 7 mg/dL (7-21); CALCIUM 8.7 mg/dL (8.4-10.5); CARBON DIOXIDE 30 mmol/L (21-33); CHLORIDE 108 mmol/L (98-107); GFR AFRICAN-AMERICAN > 60; GLUCOSE,RANDOM 118 mg/dL (70-110); LIPASE 21 U/L (23-300); POTASSIUM 3.8 mmol/L (3.6-5.0); SODIUM 148 mmol/L (132-148); TOTAL PROTEIN 7.3 g/dL (5.8-8.3)
[2017-06-15 01:56] VITALS: PULSE 67
[2017-06-15 05:17] VITALS: BP 132/70
== END 2017-06-15 05:15 | disposition home or self-care (01) ==
LOC: ED 23:09
DX: K29.70 Gastritis, unspecified, without bleeding (principal); I10 Essential (primary) hypertension
CPT/HCPCS: 80053; 83690; 85027; 96361; 96374; 96375; 99285; J1885; J7040

== ENCOUNTER 2017-06-19 22:42 | Emergency (ER) | payer MEDICAID ==
[2017-06-19 22:42] VITALS: BMI 21.5
[2017-06-19 23:08] VITALS: RESP 18; O2SAT 99
--- NOTE | 2017-06-19 23:49 | ED PDOC ---
Arrival/HPI - General Chief Complaint: Abdominal Pain Time Seen by Provider: 06/19/17 22:50 Historian: Patient - History of Present Illness Narrative History of Present Illness (Text): 06/19/17 23:47 Felix Glasgow is a 42 year male, whose past medical history includes chronic pancreatitis, hypertension and alcohol abuse, presents to the Emergency department for epigastric/stomach discomfort tonight. Patient also admits to alcohol consumption yesterday. Patient denies chest pain, shortness of breath, headache, fever, chills, cough, nausea, vomiting, urinary problems, abnormal gait or any other complaints. Time/Duration: Other (tonight) Symptom Onset: Gradual Symptom Course: Unchanged Activities at Onset: Light Past Medical History - Provider Review Nursing Documentation Reviewed: Yes - Infectious Disease Hx of Infectious Diseases: None - Tetanus Immunization Tetanus Immunization: Unknown - Past Medical History Past Medical History: No Previous - Cardiac Hx Cardiac Disorders: Yes Hx Hypertension: Yes - Pulmonary Hx Respiratory Disorders: No - Neurological Hx Neurological Disorder: No - HEENT Hx HEENT Disorder: No - Renal Hx Renal Disorder: No - Endocrine/Metabolic Hx Endocrine Disorders: No - Hematological/Oncological Hx Blood Disorders: No - Integumentary Hx Dermatological Disorder: No - Musculoskeletal/Rheumatological Hx Musculoskeletal Disorders: No - Gastrointestinal Hx Gastrointestinal Disorders: Yes Hx Gastroesophageal Reflux: Yes Hx Pancreatitis: Yes - Genitourinary/Gynecological Hx Genitourinary Disorders: No Hx Sexually Transmitted Diseases: No - Psychiatric Hx Psychophysiologic Disorder: No Hx Substance Use: Yes - Past Surgical History Past Surgical History: No Previous - Surgical History Hx Amputation: No Hx Appendectomy: No Hx Cardiac Catheterization: No Hx Cholecystectomy: No Hx Coronary Stent: No Hx Gastric Bypass Surgery: No Hx Hysterectomy: No Hx Joint Replacement: No Hx Kidney Transplant: No Hx Liver Transplant: No Hx Mastectomy: No Hx Musculoskeletal Surgery: No Hx Open Heart Surgery: No Hx Orthopedic Surgery: No Hx Splenectomy: No Hx Valve Replacement: No - Anesthesia Hx Anesthesia: No Hx Anesthesia Reactions: No Hx Malignant Hyperthermia: No - Suicidal Assessment Feels Threatened In Home Enviroment: No Family/Social History - Physician Review Nursing Documentation Reviewed: Yes Family/Social History: Unknown Family HX Smoking Status: Smoker Currrent Status Unknown Hx Alcohol Use: Yes Amount per day: 24 Hx Substance Use: Yes Allergies/Home Meds Allergies/Adverse Reactions: Allergies No Known Allergies Allergy (Verified 06/07/17 23:41) Home Medications: Home Meds Medication Instructions Recorded Confirmed No Known Home Med 06/19/17 06/19/17 Review of Systems - Physician Review All systems were reviewed & negative as marked: Yes - Review of Systems Constitutional: Normal. absent: Fevers Eyes: Normal ENT: Normal Respiratory: Normal. absent: SOB, Cough Cardiovascular: Normal. absent: Chest Pain Gastrointestinal: Abdominal Pain. absent: Diarrhea, Nausea, Vomiting Genitourinary Male: Normal. absent: Dysuria, Frequency, Hematuria, Urinary Output Changes Musculoskeletal: Normal. absent: Back Pain, Neck Pain Skin: Normal. absent: Rash Neurological: Normal. absent: Headache, Dizziness Endocrine: Normal Hemo/Lymphatic: Normal Psychiatric: Normal Physical Exam Vital Signs Reviewed: Yes Vital Signs Temp Pulse Resp BP Pulse Ox 06/20/17 04:00 97.9 F 66 18 146/84 99 06/19/17 23:01 98.2 F 62 18 152/99 H 99 Temperature: Afebrile Blood Pressure: Normal Pulse: Regular Respiratory Rate: Normal Appearance: Positive for: Well-Appearing, Non-Toxic, Comfortable Pain Distress: None Mental Status: Positive for: Alert and Oriented X 3 - Systems Exam Head: Present: Atraumatic, Normocephalic Pupils: Present: PERRL Extroacular Muscles: Present: EOMI Conjunctiva: Present: Normal Mouth: Present: Moist Mucous Membranes Neck: Present: Normal Range of Motion Respiratory/Chest: Present: Clear to Auscultation, Good Air Exchange. No: Respiratory Distress, Accessory Muscle Use Cardiovascular: Present: Regular Rate and Rhythm, Normal S1, S2. No: Murmurs Abdomen: Present: Normal Bowel Sounds. No: Tenderness, Distention, Peritoneal Signs Back: Present: Normal Inspection Upper Extremity: Present: Normal Inspection. No: Cyanosis, Edema Lower Extremity: Present: Normal Inspection. No: Edema Neurological: Present: GCS=15, CN II-XII Intact, Speech Normal Skin: Present: Warm, Dry, Normal Color. No: Rashes Psychiatric: Present: Alert, Oriented x 3, Normal Insight, Normal Concentration Medical Decision Making ED Course and Treatment: 06/19/17 23:47 Impression: 42 year old male complaining of epigastric/stomach discomfort tonight. Plan: -- Labs, lipase, alcohol level -- Pepcid -- Zofran -- Toradol -- IV fluids -- Reassess and disposition Prior Visits: Notes and results from previous visits were reviewed. On 06/14/2017, pt was seen in the Emergency department for epigastric pain. Pt was d/c home. Progress Notes: 06/20/17 04:50 On re-evaluation, patient feels better and is in no acute distress. I have discussed the results and plan with the patient, who expresses understanding. Patient in agreement with plan to be discharged home. Patient is stable for discharge. Patient was instructed to follow up with physician or return if symptoms worsen or new concerning symptoms arise. - Lab Interpretations Lab Results: 06/20/17 00:10 06/20/17 00:10 Lab Results 06/20/17 00:10: WBC 5.3 D, RBC 3.07 L, Hgb 10.9 L, Hct 31.7 L, MCV 103.3 D, MCH 35.5 H, MCHC 34.4, RDW 15.6 H, Plt Count 134, MPV 10.0 06/20/17 00:10: Alcohol, Quantitative 201 H 06/20/17 00:10: Sodium 141, Potassium 3.5 L, Chloride 104, Carbon Dioxide 28, Anion Gap 12, BUN 7, Creatinine 0.6 L, Est GFR ( Amer) > 60, Est GFR (Non -Af Amer) > 60, Random Glucose 98, Calcium 8.4, Total Bilirubin 1.2, AST 334 H D , ALT 86 H, Alkaline Phosphatase 185 H D, Total Protein 6.9, Albumin 3.7, Globulin 3.3, Albumin/Globulin Ratio 1.1, Lipase 19 L I have reviewed the lab results: Yes - Medication Orders Current Medication Orders: Discontinued Medications Famotidine (Pepcid) 20 mg IVP STAT STA Stop: 06/19/17 23:51 Last Admin: 06/20/17 00:18 Dose: 20 mg IVP Administration Document 06/20/17 00:18 RD (Rec: 06/20/17 00:18 RD [id number]) Charges for Administration # of IVP Administrations 1 Sodium Chloride (Sodium Chloride 0.9%) 1,000 mls @ 999 mls/hr IV .Q1H1M STA Stop: 06/20/17 00:50 Last Admin: 06/20/17 00:18 Dose: 999 mls/hr eMAR Start Stop Document 06/20/17 00:18 RD (Rec: 06/20/17 00:18 RD [id number]) Intravenous Solution Start Date 06/20/17 Start Time 00:18 End Date 06/20/17 End time 01:18 Total Infusion Time 60 Ketorolac Tromethamine (Toradol) 30 mg IVP ONCE ONE Stop: 06/19/17 23:51 Last Admin: 06/20/17 00:15 Dose: 30 mg MAR Pain Assessment Document 06/20/17 00:15 RD (Rec: 06/20/17 00:19 RD [id number]) Pain Reassessment Is this a pain reassessment? No Sleep Is patient sleeping during reassessment? No Presence of Pain Presence of Pain Yes IVP Administration Document 06/20/17 00:15 RD (Rec: 06/20/17 00:19 RD [id number]) Charges for Administration # of IVP Administrations 1 Ondansetron HCl (Zofran Inj) 4 mg IVP ONCE ONE Stop: 06/19/17 23:51 Last Admin: 06/20/17 00:14 Dose: 4 mg IVP Administration Document 06/20/17 00:14 RD (Rec: 06/20/17 00:19 RD [id number]) Charges for Administration # of IVP Administrations 1 - Scribe Statement The provider has reviewed the documentation as recorded by the Becca Zhou Provider Scribe Attestation: All medical record entries made by the Scribe were at my direction and personally dictated by me. I have reviewed the chart and agree that the record accurately reflects my personal performance of the history, physical exam, medical decision making, and the department course for this patient. I have also personally directed, reviewed, and agree with the discharge instructions and disposition. Disposition/Present on Arrival - Present on Arrival Any Indicators Present on Arrival: No History of DVT/PE: No History of Uncontrolled Diabetes: No Urinary Catheter: No History of Decub. Ulcer: No History Surgical Site Infection Following: None - Disposition Have Diagnosis and Disposition been Completed?: Yes Diagnosis: Alcohol abuse, Gastritis Disposition: HOME/ ROUTINE Disposition Time: 04:50 Patient Plan: Discharge Patient Problems: Current Active Problems Problem Status Onset Alcohol abuse Acute Gastritis Acute Condition: GOOD Discharge Instructions (ExitCare): Gastritis (ED), Abuse of Alcohol (ED) Additional Instructions: Avoid drinking alcohol/take your pepcid as previously prescribed/follow up with your doctor Referrals: Sheng Cole MD [Primary Care Provider] - Follow up with primary Forms: [employer] ([place])
[2017-06-19] MEDS ORDERED: Sodium Chloride 0.9% 1,000 ML IV STA (23:50)
[2017-06-20 00:37] LABS: HEMATOCRIT 31.7 % (42.0-52.0); MEAN CORPUSCULAR HEMOGLOBIN 35.5 pg (25.0-35.0); MEAN CORPUSCULAR HGB CONC 34.4 g/dl (31.0-37.0); RED CELL DISTRIBUTION WIDTH 15.6 % (11.5-14.5); WHITE BLOOD COUNT 5.3 10^3/ul (4.5-11.0)
[2017-06-20 00:46] LABS: ALB/GLOB RATIO 1.1 (1.1-1.8); ALKALINE PHOSPHATASE 185 U/L (38-126); ALT/SGPT 86 U/L (7-56); AST/SGOT 334 U/L (17-59); BILIRUBIN,TOTAL 1.2 mg/dL (0.2-1.3); BLOOD UREA NITROGEN 7 mg/dL (7-21); CALCIUM 8.4 mg/dL (8.4-10.5); CARBON DIOXIDE 28 mmol/L (21-33); CHLORIDE 104 mmol/L (98-107); GFR AFRICAN-AMERICAN > 60; GLUCOSE,RANDOM 98 mg/dL (70-110); LIPASE 19 U/L (23-300); POTASSIUM 3.5 mmol/L (3.6-5.0); SODIUM 141 mmol/L (132-148); TOTAL PROTEIN 6.9 g/dL (5.8-8.3)
[2017-06-20 00:49] LABS: MEAN CELL VOLUME 103.3 fl (80.0-105.0)
[2017-06-20 06:06] VITALS: BP 146/80; PULSE 70; TEMP 97.8
== END 2017-06-20 06:08 | disposition home or self-care (01) ==
LOC: ED 22:42
DX: K29.70 Gastritis, unspecified, without bleeding (principal); F10.10 Alcohol abuse, uncomplicated; I10 Essential (primary) hypertension
CPT/HCPCS: 80053; 80320; 83690; 85027; 96361; 96374; 96375; 99284; J1885; J2405; J7040

== ENCOUNTER 2017-06-23 19:26 | Emergency (ER) | payer MEDICAID ==
[2017-06-23 19:26] VITALS: BMI 21.5
[2017-06-23] MEDS ORDERED: Sodium Chloride 0.9% 1,000 ML IV STA (21:03)
[2017-06-23 21:11] VITALS: BP 117/69; PULSE 71; RESP 18; TEMP 98.9; O2SAT 96
--- NOTE | 2017-06-23 21:26 | ED PDOC ---
Arrival/HPI - General Chief Complaint: Abdominal Pain Time Seen by Provider: 06/23/17 19:39 Historian: Patient - History of Present Illness Narrative History of Present Illness (Text): 06/23/17 19:40 Felix Glasgow is a 42 year old male, whose past medical history includes gastritis, alcoholic abuse, pancreatitis, and hypertension, who presents to the emergency department complaining of stomach discomfort tonight. Patient admits that he has been drinking alcohol today which he knows not to drink because it upsets his stomach. Patient denies any fever, chills, chest pain, shortness of breath, nausea, vomiting, diarrhea, urinary symptoms, back pain, neck pain, headache, dizziness, or any other complaints. Time/Duration: 4-6 hours Symptom Onset: Gradual Symptom Course: Unchanged Severity Level: Mild Activities at Onset: Light Past Medical History - Provider Review Nursing Documentation Reviewed: Yes - Infectious Disease Hx of Infectious Diseases: None - Tetanus Immunization Tetanus Immunization: Unknown - Past Medical History Past Medical History: No Previous - Cardiac Hx Cardiac Disorders: Yes Hx Hypertension: Yes - Pulmonary Hx Respiratory Disorders: No - Neurological Hx Neurological Disorder: No - HEENT Hx HEENT Disorder: No - Renal Hx Renal Disorder: No - Endocrine/Metabolic Hx Endocrine Disorders: No - Hematological/Oncological Hx Blood Disorders: No - Integumentary Hx Dermatological Disorder: No - Musculoskeletal/Rheumatological Hx Musculoskeletal Disorders: No - Gastrointestinal Hx Gastrointestinal Disorders: Yes Hx Gastroesophageal Reflux: Yes Hx Pancreatitis: Yes - Genitourinary/Gynecological Hx Genitourinary Disorders: No Hx Sexually Transmitted Diseases: No - Psychiatric Hx Psychophysiologic Disorder: No Hx Substance Use: Yes - Past Surgical History Past Surgical History: No Previous - Surgical History Hx Amputation: No Hx Appendectomy: No Hx Cardiac Catheterization: No Hx Cholecystectomy: No Hx Coronary Stent: No Hx Gastric Bypass Surgery: No Hx Hysterectomy: No Hx Joint Replacement: No Hx Kidney Transplant: No Hx Liver Transplant: No Hx Mastectomy: No Hx Musculoskeletal Surgery: No Hx Open Heart Surgery: No Hx Orthopedic Surgery: No Hx Splenectomy: No Hx Valve Replacement: No - Anesthesia Hx Anesthesia: No Hx Anesthesia Reactions: No Hx Malignant Hyperthermia: No - Suicidal Assessment Feels Threatened In Home Enviroment: No Family/Social History - Physician Review Nursing Documentation Reviewed: Yes Family/Social History: No Known Family HX Smoking Status: Smoker Currrent Status Unknown Hx Alcohol Use: Yes Amount per day: 24 Hx Substance Use: Yes Allergies/Home Meds Allergies/Adverse Reactions: Allergies No Known Allergies Allergy (Verified 06/07/17 23:41) Home Medications: Home Meds Medication Instructions Recorded Confirmed No Known Home Med 06/19/17 06/19/17 Review of Systems - Physician Review All systems were reviewed & negative as marked: Yes - Review of Systems Constitutional: absent: Fevers, Night Sweats Eyes: absent: Vision Changes ENT: absent: Hearing Changes Respiratory: absent: SOB, Cough Cardiovascular: absent: Chest Pain Gastrointestinal: Abdominal Pain. absent: Nausea, Vomiting Genitourinary Male: absent: Dysuria, Frequency Musculoskeletal: absent: Arthralgias Skin: absent: Rash, Pruritis Neurological: absent: Headache Endocrine: absent: Diaphoresis Hemo/Lymphatic: absent: Adenopathy Psychiatric: absent: Anxiety, Depression Physical Exam Vital Signs Reviewed: Yes Vital Signs Temp Pulse Resp BP Pulse Ox 06/23/17 19:26 98.9 F 71 18 117/69 96 Temperature: Afebrile Blood Pressure: Normal Pulse: Regular Respiratory Rate: Normal Appearance: Positive for: Well-Appearing, Non-Toxic, Comfortable Pain Distress: None Mental Status: Positive for: Alert and Oriented X 3 - Systems Exam Head: Present: Atraumatic, Normocephalic Pupils: Present: PERRL Extroacular Muscles: Present: EOMI Conjunctiva: Present: Normal Mouth: Present: Moist Mucous Membranes Neck: Present: Normal Range of Motion Respiratory/Chest: Present: Clear to Auscultation, Good Air Exchange. No: Respiratory Distress, Accessory Muscle Use Cardiovascular: Present: Regular Rate and Rhythm, Normal S1, S2. No: Murmurs Abdomen: Present: Normal Bowel Sounds. No: Tenderness, Distention, Peritoneal Signs Back: Present: Normal Inspection Upper Extremity: Present: Normal Inspection. No: Cyanosis, Edema Lower Extremity: Present: Normal Inspection. No: Edema Neurological: Present: GCS=15, CN II-XII Intact, Speech Normal Skin: Present: Warm, Dry, Normal Color. No: Rashes Psychiatric: Present: Alert, Oriented x 3, Normal Insight, Normal Concentration Medical Decision Making ED Course and Treatment: 06/23/17 21:27 Impression: 42 year old male complaining of stomach discomfort tonight. Differential Diagnosis included but are not limited to: Gastritis vs. Alcohol abuse vs. Pancreatitis Plan: -- Labs -- Pepcid, Toradol, Zofran, and IV fluids -- Reassess and disposition Prior Visits: Notes and results from previous visits were reviewed. Patient was last seen in the emergency department on 06/19/17 for epigastric/stomach discomfort for a few hours that night. Patient was discharged home. Progress Notes: - Lab Interpretations Lab Results: 06/23/17 21:15 06/23/17 21:15 Lab Results 06/23/17 21:15: WBC 5.5, RBC 2.83 L, Hgb 9.9 L, Hct 30.6 L, MCV 108.1 H D, MCH 35.0, MCHC 32.4, RDW 16.4 H, Plt Count 127, MPV 9.6 06/23/17 21:15: Sodium 149 H, Potassium 3.9, Chloride 111 H, Carbon Dioxide 32, Anion Gap 10, BUN 6 L, Creatinine 0.8, Est GFR ( Amer) > 60, Est GFR (Non -Af Amer) > 60, Random Glucose 113 H, Calcium 8.2 L, Total Bilirubin 0.5, AST 117 H D, ALT 63 H, Alkaline Phosphatase 148 H, Total Protein 6.7, Albumin 3.6, Globulin 3.1, Albumin/Globulin Ratio 1.2, Lipase 14 L I have reviewed the lab results: Yes - Medication Orders Current Medication Orders: Discontinued Medications Famotidine (Pepcid) 20 mg IVP STAT STA Stop: 06/23/17 21:04 Last Admin: 06/23/17 21:26 Dose: 20 mg IVP Administration Document 06/23/17 21:26 [place] (Rec: 06/23/17 21:26 [id number]) Charges for Administration # of IVP Administrations 1 Sodium Chloride (Sodium Chloride 0.9%) 1,000 mls @ 999 mls/hr IV .Q1H1M STA Stop: 06/23/17 22:03 Last Admin: 06/23/17 21:26 Dose: 999 mls/hr eMAR Start Stop Document 06/23/17 21:26 [place] (Rec: 06/23/17 21:26 [id number]) Intravenous Solution Start Date 06/23/17 Start Time 21:26 End Date 06/23/17 End time 22:26 Total Infusion Time 60 Ketorolac Tromethamine (Toradol) 30 mg IVP ONCE ONE Stop: 06/23/17 21:04 Last Admin: 06/23/17 21:26 Dose: 30 mg MAR Pain Assessment Document 06/23/17 21:26 [place] (Rec: 06/23/17 21:27 [id number]) Pain Reassessment Is this a pain reassessment? No Sleep Is patient sleeping during reassessment? No Presence of Pain Presence of Pain Yes IVP Administration Document 06/23/17 21:26 [place] (Rec: 06/23/17 21:27 [id number]) Charges for Administration # of IVP Administrations 1 Ondansetron HCl (Zofran Inj) 4 mg IVP ONCE ONE Stop: 06/23/17 21:04 Last Admin: 06/23/17: Dose: 4 mg IVP Administration Document 06/23/17 21:27 [place] (Rec: 06/23/17 21:27 [id number]) Charges for Administration # of IVP Administrations 1 - Scribe Statement The provider has reviewed the documentation as recorded by the Becca Piedra Provider Scribe Attestation: All medical record entries made by the Jeanetteibcassandra were at my direction and personally dictated by me. I have reviewed the chart and agree that the record accurately reflects my personal performance of the history, physical exam, medical decision making, and the department course for this patient. I have also personally directed, reviewed, and agree with the discharge instructions and disposition. Disposition/Present on Arrival - Present on Arrival Any Indicators Present on Arrival: No History of DVT/PE: No History of Uncontrolled Diabetes: No Urinary Catheter: No History of Decub. Ulcer: No History Surgical Site Infection Following: None - Disposition Have Diagnosis and Disposition been Completed?: Yes Diagnosis: Gastritis Disposition: HOME/ ROUTINE Disposition Time: 00:27 Patient Plan: Discharge Condition: STABLE Discharge Instructions (ExitCare): Gastritis (ED) Additional Instructions: Dont drink alcohol/Take Pepcid meds as previously prescribed/follow up with your doctor Forms: [employer] (Romanian)
[2017-06-23 21:34] LABS: HEMATOCRIT 30.6 % (42.0-52.0); MEAN CELL VOLUME 108.1 fl (80.0-105.0); MEAN CORPUSCULAR HGB CONC 32.4 g/dl (31.0-37.0); MEAN PLATELET VOLUME 9.6 fl (7.0-11.0); RED CELL DISTRIBUTION WIDTH 16.4 % (11.5-14.5); WHITE BLOOD COUNT 5.5 10^3/ul (4.5-11.0)
[2017-06-23 22:27] LABS: BLOOD UREA NITROGEN 6 mg/dL (7-21); GFR AFRICAN-AMERICAN > 60; GLUCOSE,RANDOM 113 mg/dL (70-110); SODIUM 149 mmol/L (132-148)
[2017-06-23 22:28] LABS: ALB/GLOB RATIO 1.2 (1.1-1.8); ALT/SGPT 63 U/L (7-56); AST/SGOT 117 U/L (17-59); BILIRUBIN,TOTAL 0.5 mg/dL (0.2-1.3); CALCIUM 8.2 mg/dL (8.4-10.5); CARBON DIOXIDE 32 mmol/L (21-33); CHLORIDE 111 mmol/L (98-107); POTASSIUM 3.9 mmol/L (3.6-5.0); TOTAL PROTEIN 6.7 g/dL (5.8-8.3)
[2017-06-23 22:29] LABS: ALKALINE PHOSPHATASE 148 U/L (38-126); LIPASE 14 U/L (23-300)
== END 2017-06-24 00:35 | disposition home or self-care (01) ==
LOC: ED 19:26
DX: K29.70 Gastritis, unspecified, without bleeding (principal)
CPT/HCPCS: 80053; 83690; 85027; 96361; 96374; 96375; 99283; J1885; J2405; J7040

== ENCOUNTER 2017-06-26 23:44 | Emergency (ER) | payer MEDICAID ==
[2017-06-26 23:44] VITALS: BMI 21.5
[2017-06-27 00:11] VITALS: BP 147/92; PULSE 73; RESP 17; TEMP 98.2; O2SAT 98
--- NOTE | 2017-06-27 02:36 | ED PDOC ---
Arrival/HPI - General Historian: Patient - History of Present Illness Time/Duration: 24 hours Symptom Onset: Sudden Activities at Onset: Rest, Light Context: Home <Giovanny Brandt - Last Filed: 06/27/17 06:16> <João Rai - Last Filed: 06/27/17 06:36> - General Chief Complaint: Alcohol Ingestion Time Seen by Provider: 06/27/17 00:58 - History of Present Illness Narrative History of Present Illness (Text): 06/27/17 02:20 Felix Glasgow is a 42 year old male who has a past medical history significant for gastritis, alcoholic abuse, chronic pancreatitis, and hypertension who [place] [facility] [place]. Patient reports that his last drink was around 1700 today and he does not recall the exact amount of alcohol that he has consumed in the past 24 hours. Patient notes that earlier today he was experiencing abdominal discomfort but that he is no longer experiencing this discomfort. Patient denies fever, chills, headache, changes in his vision, chest pain, palpitations, SOB, cough, abdominal pain, N/V/D/C, burning/pain with urination, rashes, or any numbness/tingling/weakness of any extremities. (Giovanny Brandt) Past Medical History - Provider Review Nursing Documentation Reviewed: Yes - Travel History Have you recently traveled outside [place] w/in the past 3 mons?: No - Past History Past History: No Previous - Infectious Disease Hx of Infectious Diseases: None - Tetanus Immunization Tetanus Immunization: Unknown - Past Medical History Past Medical History: No Previous - Cardiac Hx Cardiac Disorders: Yes Hx Hypertension: Yes - Pulmonary Hx Respiratory Disorders: No - Neurological Hx Neurological Disorder: No - HEENT Hx HEENT Disorder: No - Renal Hx Renal Disorder: No - Endocrine/Metabolic Hx Endocrine Disorders: No - Hematological/Oncological Hx Blood Disorders: No - Integumentary Hx Dermatological Disorder: No - Musculoskeletal/Rheumatological Hx Musculoskeletal Disorders: No - Gastrointestinal Hx Gastrointestinal Disorders: Yes Hx Gastroesophageal Reflux: Yes Hx Pancreatitis: Yes - Genitourinary/Gynecological Hx Genitourinary Disorders: No Hx Sexually Transmitted Diseases: No - Psychiatric Hx Psychophysiologic Disorder: No Hx Substance Use: Yes - Past Surgical History Past Surgical History: No Previous - Surgical History Hx Amputation: No Hx Appendectomy: No Hx Cardiac Catheterization: No Hx Cholecystectomy: No Hx Coronary Stent: No Hx Gastric Bypass Surgery: No Hx Hysterectomy: No Hx Joint Replacement: No Hx Kidney Transplant: No Hx Liver Transplant: No Hx Mastectomy: No Hx Musculoskeletal Surgery: No Hx Open Heart Surgery: No Hx Orthopedic Surgery: No Hx Splenectomy: No Hx Valve Replacement: No - Anesthesia Hx Anesthesia: No Hx Anesthesia Reactions: No Hx Malignant Hyperthermia: No - Suicidal Assessment Feels Threatened In Home Enviroment: No <RikkiGiovanny - Last Filed: 06/27/17 06:16> Family/Social History - Physician Review Nursing Documentation Reviewed: Yes Family/Social History: No Known Family HX Smoking Status: Smoker Currrent Status Unknown Hx Alcohol Use: Yes Amount per day: 24 Hx Substance Use: Yes <Giovanny Brandt - Last Filed: 06/27/17 06:16> Allergies/Home Meds <Giovanny Brandt - Last Filed: 06/27/17 06:16> <João Rai - Last Filed: 06/27/17 06:36> Allergies/Adverse Reactions: Allergies No Known Allergies Allergy (Verified 06/07/17 23:41) Home Medications: Home Meds Medication Instructions Recorded Confirmed No Known Home Med 06/19/17 06/27/17 Review of Systems - Physician Review All systems were reviewed & negative as marked: Yes - Review of Systems Constitutional: Normal. absent: Fevers, Night Sweats Eyes: Normal. absent: Vision Changes ENT: Normal Respiratory: Normal. absent: SOB, Cough Cardiovascular: Normal. absent: Chest Pain, Palpitations Gastrointestinal: Normal. absent: Abdominal Pain, Constipation, Diarrhea, Nausea, Vomiting Genitourinary Male: Normal. absent: Dysuria Musculoskeletal: Normal. absent: Back Pain, Neck Pain Skin: Normal. absent: Rash Neurological: Normal. absent: Headache Endocrine: Normal Hemo/Lymphatic: Normal Psychiatric: Normal <RikkiGiovanny - Last Filed: 06/27/17 06:16> Physical Exam - Physical Exam Physical Exam Limitations: Intoxication (Alcohol, per patient) Vital Signs Reviewed: Yes Temperature: Afebrile Blood Pressure: Normal Pulse: Regular Respiratory Rate: Normal Appearance: Positive for: Well-Appearing, Non-Toxic, Comfortable Pain Distress: None Mental Status: Positive for: Alert and Oriented X 3 - Systems Exam Head: Present: Atraumatic, Normocephalic Pupils: Present: PERRL Extroacular Muscles: Present: EOMI Conjunctiva: Present: Normal Mouth: Present: Moist Mucous Membranes Neck: Present: Normal Range of Motion, Trachea Midline. No: Meningeal Signs, MIDLINE TENDERNESS, Paraspinal Tenderness, JVD, Lymphadenopathy Respiratory/Chest: Present: Clear to Auscultation, Good Air Exchange. No: Respiratory Distress, Accessory Muscle Use, Wheezes, Decreased Breath Sounds, Rales, Retracting, Rhonchi, Tachypneic, Tender to Palpation Cardiovascular: Present: Regular Rate and Rhythm, Normal S1, S2, Peripheal Pulses Present. No: Murmurs, Irregular Rhythm, Tachycardic, Bradycardic Abdomen: Present: Normal Bowel Sounds. No: Tenderness, Distention, Peritoneal Signs, Rebound, Guarding Back: Present: Normal Inspection. No: CVA Tenderness, Paraspinal Tenderness, Pain with Leg Raise Upper Extremity: Present: Normal Inspection. No: Cyanosis, Edema Lower Extremity: Present: Normal Inspection. No: Edema Neurological: Present: GCS=15, CN II-XII Intact, Speech Normal Skin: Present: Warm, Dry, Normal Color. No: Rashes Psychiatric: Present: Alert, Oriented x 3, Intoxicated. No: Normal Insight, Normal Concentration <Giovanny Brandt - Last Filed: 06/27/17 06:16> Vital Signs Temp Pulse Resp BP Pulse Ox 06/27/17 00:08 98.2 F 73 17 147/92 H 98 Medical Decision Making - Lab Interpretations I have reviewed the lab results: Yes Interpretation: All labs normal <Giovanny Brandt - Last Filed: 06/27/17 06:16> <João Rai - Last Filed: 06/27/17 06:36> ED Course and Treatment: 06/27/17 02:38 Impression: 42 year old male who has a past medical history significant for gastritis, alcoholic abuse, chronic pancreatitis, and hypertension who [place] [facility] [place] acute [place] intoxication Plan: -Fingerstick blood glucose -Reassess and disposition Prior Visits: Patient has been seen and evaluated for alcohol withdrawal on multiple occasions (Giovanny Brandt) Patient Seen With Resident: In agreement with resident note which contains more details about the patient. Patient was seen and evaluated with resident. Came up with plan and treatment together. A 42 year old male with alcohol intoxication. Additional HPI as noted by resident. No acute findings on physical exam. Pending sobriety. (João Rai) - PA / COUNTER MAKER / Resident Statement / has reviewed & agrees with the documentation as recorded. / has examined the patient and agrees with the treatment plan. <João Rai - Last Filed: 06/27/17 06:36> Disposition/Present on Arrival - Present on Arrival Any Indicators Present on Arrival: No History of DVT/PE: No History of Uncontrolled Diabetes: No Urinary Catheter: No History of Decub. Ulcer: No History Surgical Site Infection Following: None - Disposition Have Diagnosis and Disposition been Completed?: Yes Disposition Time: 04:33 Patient Plan: Discharge <Giovanny Brandt - Last Filed: 06/27/17 06:16> <João Rai - Last Filed: 06/27/17 06:36> - Disposition Diagnosis: Alcohol abuse Disposition: HOME/ ROUTINE Patient Problems: Current Active Problems Problem Status Onset Alcohol abuse Acute Condition: GOOD Referrals: Sheng Cole MD [Primary Care Provider] - Follow up with primary Forms: [employer] (Bangladeshi)
== END 2017-06-27 06:50 | disposition home or self-care (01) ==
LOC: ED 23:44
DX: F10.10 Alcohol abuse, uncomplicated (principal); Y90.9 Presence of alcohol in blood, level not specified

== ENCOUNTER 2017-06-27 22:57 | Emergency (ER) | payer MEDICAID ==
[2017-06-27 22:57] VITALS: BMI 21.5
[2017-06-27] MEDS ORDERED: Sodium Chloride 0.9% 1,000 ML IV STA (23:47)
[2017-06-27 23:48] VITALS: TEMP 97.8
--- NOTE | 2017-06-27 23:51 | ED PDOC ---
Arrival/HPI - General Chief Complaint: Abdominal Pain Time Seen by Provider: 06/27/17 23:37 Historian: Patient - History of Present Illness Narrative History of Present Illness (Text): 06/27/17 23:49 Felix Glasgow is a 42 year old male, whose past medical history includes gastritis, alcoholic abuse, pancreatitis, and hypertension, who presents to the emergency department complaining of stomach discomfort tonight. Patient admits that he has been drinking alcohol earlier which he knows not to drink because it upsets his stomach. Patient denies any fever, chills, chest pain, shortness of breath, nausea, vomiting, diarrhea, urinary symptoms, back pain, neck pain, headache, dizziness, or any other complaints. Time/Duration: 4-6 hours Symptom Onset: Gradual Symptom Course: Unchanged Severity Level: Mild Activities at Onset: Light Past Medical History - Provider Review Nursing Documentation Reviewed: Yes - Past History Past History: No Previous - Infectious Disease Hx of Infectious Diseases: None - Tetanus Immunization Tetanus Immunization: Unknown - Past Medical History Past Medical History: No Previous - Cardiac Hx Cardiac Disorders: Yes Hx Hypertension: Yes - Pulmonary Hx Respiratory Disorders: No - Neurological Hx Neurological Disorder: No - HEENT Hx HEENT Disorder: No - Renal Hx Renal Disorder: No - Endocrine/Metabolic Hx Endocrine Disorders: No - Hematological/Oncological Hx Blood Disorders: No - Integumentary Hx Dermatological Disorder: No - Musculoskeletal/Rheumatological Hx Musculoskeletal Disorders: No - Gastrointestinal Hx Gastrointestinal Disorders: Yes Hx Gastroesophageal Reflux: Yes Hx Pancreatitis: Yes - Genitourinary/Gynecological Hx Genitourinary Disorders: No Hx Sexually Transmitted Diseases: No - Psychiatric Hx Psychophysiologic Disorder: No Hx Substance Use: Yes - Past Surgical History Past Surgical History: No Previous - Surgical History Hx Amputation: No Hx Appendectomy: No Hx Cardiac Catheterization: No Hx Cholecystectomy: No Hx Coronary Stent: No Hx Gastric Bypass Surgery: No Hx Hysterectomy: No Hx Joint Replacement: No Hx Kidney Transplant: No Hx Liver Transplant: No Hx Mastectomy: No Hx Musculoskeletal Surgery: No Hx Open Heart Surgery: No Hx Orthopedic Surgery: No Hx Splenectomy: No Hx Valve Replacement: No - Anesthesia Hx Anesthesia: No Hx Anesthesia Reactions: No Hx Malignant Hyperthermia: No - Suicidal Assessment Feels Threatened In Home Enviroment: No Family/Social History - Physician Review Nursing Documentation Reviewed: Yes Family/Social History: No Known Family HX Smoking Status: Smoker Currrent Status Unknown Hx Alcohol Use: Yes Amount per day: 24 Hx Substance Use: Yes Allergies/Home Meds Allergies/Adverse Reactions: Allergies No Known Allergies Allergy (Verified 06/27/17 23:48) Home Medications: Home Meds Medication Instructions Recorded Confirmed No Known Home Med 06/19/17 06/28/17 Review of Systems - Physician Review All systems were reviewed & negative as marked: Yes - Review of Systems Constitutional: absent: Fevers, Night Sweats Eyes: absent: Vision Changes ENT: absent: Hearing Changes Respiratory: absent: SOB, Cough Cardiovascular: absent: Chest Pain Gastrointestinal: Abdominal Pain Genitourinary Male: absent: Dysuria Musculoskeletal: absent: Arthralgias Skin: absent: Rash, Pruritis Neurological: absent: Headache, Dizziness Endocrine: absent: Diaphoresis Hemo/Lymphatic: absent: Adenopathy Physical Exam Vital Signs Reviewed: Yes Vital Signs Temp Pulse Resp BP Pulse Ox 06/28/17 01:03 61 18 151/90 H 100 06/27/17 23:30 97.8 F 79 16 155/91 H 99 Temperature: Afebrile Blood Pressure: Hypertensive Pulse: Regular Respiratory Rate: Normal Appearance: Positive for: Well-Appearing, Non-Toxic, Comfortable Pain Distress: None Mental Status: Positive for: Alert and Oriented X 3 - Systems Exam Head: Present: Atraumatic, Normocephalic Pupils: Present: PERRL Extroacular Muscles: Present: EOMI Conjunctiva: Present: Normal Mouth: Present: Moist Mucous Membranes Neck: Present: Normal Range of Motion Respiratory/Chest: Present: Clear to Auscultation, Good Air Exchange. No: Respiratory Distress, Accessory Muscle Use Cardiovascular: Present: Regular Rate and Rhythm, Normal S1, S2. No: Murmurs Abdomen: Present: Normal Bowel Sounds. No: Tenderness, Distention, Peritoneal Signs Back: Present: Normal Inspection Upper Extremity: Present: Normal Inspection. No: Cyanosis, Edema Lower Extremity: Present: Normal Inspection. No: Edema Neurological: Present: GCS=15, CN II-XII Intact, Speech Normal Skin: Present: Warm, Dry, Normal Color. No: Rashes Psychiatric: Present: Alert, Oriented x 3, Normal Insight, Normal Concentration Medical Decision Making ED Course and Treatment: 06/27/17 23:50 Impression: 42 year old male complaining of stomach discomfort tonight. Differential Diagnosis included but are not limited to: Gastritis vs. Alcohol abuse vs. Pancreatitis Plan: -- Labs -- Pepcid, Toradol, Zofran, and IV fluids -- Reassess and disposition Prior Visits: Notes and results from previous visits were reviewed. Patient was last seen in the emergency department on 06/23/17 for stomach discomfort. Patient was discharged home. Progress Notes: - Lab Interpretations Lab Results: 06/28/17 00:30 06/28/17 00:30 Lab Results 06/28/17 00:30: WBC 3.4 L D, RBC 2.88 L, Hgb 10.0 L, Hct 30.4 L, MCV 105.6 H, MCH 34.7, MCHC 32.9, RDW 16.4 H, Plt Count 133, MPV 9.6 06/28/17 00:30: Sodium 148, Potassium 3.9, Chloride 110 H, Carbon Dioxide 28, Anion Gap 14, BUN 8, Creatinine 0.8, Est GFR ( Amer) > 60, Est GFR (Non- Af Amer) > 60, Random Glucose 111 H, Calcium 8.5, Total Bilirubin 0.6, AST 303 H D, ALT 76 H, Alkaline Phosphatase 190 H D, Total Protein 7.1, Albumin 3.6, Globulin 3.5, Albumin/Globulin Ratio 1.0 L, Lipase 22 L I have reviewed the lab results: Yes - Medication Orders Current Medication Orders: Discontinued Medications Famotidine (Pepcid) 20 mg IVP STAT STA Stop: 06/27/17 23:48 Last Admin: 06/28/17 00:44 Dose: 20 mg IVP Administration Document 06/28/17 00:44 GMD (Rec: 06/28/17 00:44 [place] [facility] [id number] Charges for Administration # of IVP Administrations 1 Sodium Chloride (Sodium Chloride 0.9%) 1,000 mls @ 999 mls/hr IV .Q1H1M STA Stop: 06/28/17 00:47 Last Admin: 06/28/17 00:45 Dose: 999 mls/hr eMAR Start Stop Document 06/28/17 00:45 GMD (Rec: 06/28/17 00:45 GMD [id number]) Intravenous Solution Start Date 06/28/17 Start Time 00:45 End Date 06/28/17 End time 01:45 Total Infusion Time 60 Ketorolac Tromethamine (Toradol) 30 mg IVP ONCE ONE Stop: 06/27/17 23:48 Last Admin: 06/28/17 00:45 Dose: 30 mg MAR Pain Assessment Document 06/28/17 00:45 GMD (Rec: 06/28/17 00:45 GMD [facility] [id number]) Pain Reassessment Is this a pain reassessment? No Sleep Is patient sleeping during reassessment? No Presence of Pain Presence of Pain Yes IVP Administration Document 06/28/17 00:45 GMD (Rec: 06/28/17 00:45 GMD [facility] [id number]) Charges for Administration # of IVP Administrations 1 Ondansetron HCl (Zofran Inj) 4 mg IVP ONCE ONE Stop: 06/27/17 23:48 Last Admin: 06/28/17 00:44 Dose: 4 mg IVP Administration Document 06/28/17 00:44 GMD (Rec: 06/28/17 00:44 GMD [facility] [id number]) Charges for Administration # of IVP Administrations 1 - Scribe Statement The provider has reviewed the documentation as recorded by the Becca Piedra Provider Scribe Attestation: All medical record entries made by the Scribe were at my direction and personally dictated by me. I have reviewed the chart and agree that the record accurately reflects my personal performance of the history, physical exam, medical decision making, and the department course for this patient. I have also personally directed, reviewed, and agree with the discharge instructions and disposition. Disposition/Present on Arrival - Present on Arrival Any Indicators Present on Arrival: No History of DVT/PE: No History of Uncontrolled Diabetes: No Urinary Catheter: No History of Decub. Ulcer: No History Surgical Site Infection Following: None - Disposition Have Diagnosis and Disposition been Completed?: Yes Diagnosis: Gastritis Disposition: HOME/ ROUTINE Disposition Time: 03:00 Patient Problems: Current Active Problems Problem Status Onset Gastritis Acute Condition: GOOD Discharge Instructions (ExitCare): Gastritis (ED) Additional Instructions: Dont drink alcohol/follow up with your doctor this week Forms: [employer] (Azeri)
[2017-06-28 00:59] LABS: HEMATOCRIT 30.4 % (42.0-52.0); MEAN CELL VOLUME 105.6 fl (80.0-105.0); MEAN CORPUSCULAR HEMOGLOBIN 34.7 pg (25.0-35.0); MEAN CORPUSCULAR HGB CONC 32.9 g/dl (31.0-37.0); MEAN PLATELET VOLUME 9.6 fl (7.0-11.0); RED CELL DISTRIBUTION WIDTH 16.4 % (11.5-14.5); WHITE BLOOD COUNT 3.4 10^3/ul (4.5-11.0)
[2017-06-28 01:03] LABS: ALKALINE PHOSPHATASE 190 U/L (38-126); ALT/SGPT 76 U/L (7-56); AST/SGOT 303 U/L (17-59); BILIRUBIN,TOTAL 0.6 mg/dL (0.2-1.3); BLOOD UREA NITROGEN 8 mg/dL (7-21); CALCIUM 8.5 mg/dL (8.4-10.5); CARBON DIOXIDE 28 mmol/L (21-33); CHLORIDE 110 mmol/L (98-107); GFR AFRICAN-AMERICAN > 60; GLUCOSE,RANDOM 111 mg/dL (70-110); LIPASE 22 U/L (23-300); POTASSIUM 3.9 mmol/L (3.6-5.0); SODIUM 148 mmol/L (132-148); TOTAL PROTEIN 7.1 g/dL (5.8-8.3)
[2017-06-28 01:05] VITALS: RESP 18
[2017-06-28 05:03] VITALS: BP 148/88; PULSE 64; O2SAT 98
== END 2017-06-28 05:06 | disposition home or self-care (01) ==
LOC: ED 22:57
DX: K29.70 Gastritis, unspecified, without bleeding (principal); I10 Essential (primary) hypertension
CPT/HCPCS: 80053; 83690; 85027; 96361; 96374; 96375; 99284; J1885; J2405; J7040

== ENCOUNTER 2017-06-28 22:41 | Emergency (ER) | payer MEDICAID ==
[2017-06-28 22:56] VITALS: TEMP 98; BMI 22.6
--- NOTE | 2017-06-28 23:38 | ED PDOC ---
Arrival/HPI - General Chief Complaint: Alcohol Ingestion Time Seen by Provider: 06/28/17 22:56 Historian: Patient - History of Present Illness Narrative History of Present Illness (Text): 06/28/17 23:37 Felix Glasgow is a 42 year old male, whose past medical history includes pancreatitis and alcohol abuse, who presents to the ED brought in by EMS for alcohol intoxication tonight. Patient admits to drinking alcohol tonight. Patient denies any fever, chills, chest pain, shortness of breath, nausea, vomiting, diarrhea, urinary symptoms, back pain, neck pain, headache, dizziness , or any other complaints. Symptom Onset: Gradual Symptom Course: Unchanged Activities at Onset: Light Context: Home Past Medical History - Provider Review Nursing Documentation Reviewed: Yes - Past History Past History: No Previous - Infectious Disease Hx of Infectious Diseases: None - Tetanus Immunization Tetanus Immunization: Unknown - Past Medical History Past Medical History: No Previous - Cardiac Hx Cardiac Disorders: Yes Hx Hypertension: Yes - Pulmonary Hx Respiratory Disorders: No - Neurological Hx Neurological Disorder: No - HEENT Hx HEENT Disorder: No - Renal Hx Renal Disorder: No - Endocrine/Metabolic Hx Endocrine Disorders: No - Hematological/Oncological Hx Blood Disorders: No - Integumentary Hx Dermatological Disorder: No - Musculoskeletal/Rheumatological Hx Musculoskeletal Disorders: No - Gastrointestinal Hx Gastrointestinal Disorders: Yes Hx Gastroesophageal Reflux: Yes Hx Pancreatitis: Yes - Genitourinary/Gynecological Hx Genitourinary Disorders: No Hx Sexually Transmitted Diseases: No - Psychiatric Hx Psychophysiologic Disorder: No Hx Substance Use: Yes - Past Surgical History Past Surgical History: No Previous - Surgical History Hx Amputation: No Hx Appendectomy: No Hx Cardiac Catheterization: No Hx Cholecystectomy: No Hx Coronary Stent: No Hx Gastric Bypass Surgery: No Hx Hysterectomy: No Hx Joint Replacement: No Hx Kidney Transplant: No Hx Liver Transplant: No Hx Mastectomy: No Hx Musculoskeletal Surgery: No Hx Open Heart Surgery: No Hx Orthopedic Surgery: No Hx Splenectomy: No Hx Valve Replacement: No - Anesthesia Hx Anesthesia: No Hx Anesthesia Reactions: No Hx Malignant Hyperthermia: No - Suicidal Assessment Feels Threatened In Home Enviroment: No Family/Social History - Physician Review Nursing Documentation Reviewed: Yes Family/Social History: Unknown Family HX Smoking Status: Smoker Currrent Status Unknown Hx Alcohol Use: Yes Amount per day: 24 Hx Substance Use: Yes Allergies/Home Meds Allergies/Adverse Reactions: Allergies No Known Allergies Allergy (Verified 06/28/17 22:56) Home Medications: Home Meds Medication Instructions Recorded Confirmed No Known Home Med 06/19/17 06/28/17 Review of Systems - Physician Review All systems were reviewed & negative as marked: Yes - Review of Systems Constitutional: Normal. absent: Fevers Eyes: Normal ENT: Normal Respiratory: Normal. absent: SOB, Cough Cardiovascular: Normal. absent: Chest Pain Gastrointestinal: Normal. absent: Abdominal Pain, Diarrhea, Nausea, Vomiting Genitourinary Male: Normal. absent: Dysuria, Hematuria, Urinary Output Changes Musculoskeletal: Normal. absent: Back Pain, Neck Pain Skin: Normal. absent: Rash Neurological: Normal. absent: Headache, Dizziness Endocrine: Normal Hemo/Lymphatic: Normal Psychiatric: Normal Physical Exam Vital Signs Reviewed: Yes Vital Signs Temp Pulse Resp BP Pulse Ox 06/29/17 05:15 65 18 137/94 H 100 06/29/17 02:57 56 L 18 138/90 100 06/29/17 01:00 81 18 132/80 100 06/29/17 00:00 68 16 130/86 99 06/28/17 22:56 98.0 F 88 17 143/97 H 98 06/28/17 22:54 98.0 F 88 20 143/97 H 98 Temperature: Afebrile Blood Pressure: Normal Pulse: Regular Respiratory Rate: Normal Appearance: Positive for: Well-Appearing, Non-Toxic, Comfortable Pain Distress: None Mental Status: Positive for: Alert and Oriented X 3 - Systems Exam Head: Present: Atraumatic, Normocephalic Pupils: Present: PERRL Extroacular Muscles: Present: EOMI Conjunctiva: Present: Normal Mouth: Present: Moist Mucous Membranes Neck: Present: Normal Range of Motion Respiratory/Chest: Present: Clear to Auscultation, Good Air Exchange. No: Respiratory Distress, Accessory Muscle Use Cardiovascular: Present: Regular Rate and Rhythm, Normal S1, S2. No: Murmurs Abdomen: Present: Normal Bowel Sounds. No: Tenderness, Distention, Peritoneal Signs Back: Present: Normal Inspection Upper Extremity: Present: Normal Inspection. No: Cyanosis, Edema Lower Extremity: Present: Normal Inspection. No: Edema Neurological: Present: GCS=15, CN II-XII Intact, Speech Normal Skin: Present: Warm, Dry, Normal Color. No: Rashes Psychiatric: Present: Alert, Oriented x 3, Normal Insight, Normal Concentration Medical Decision Making ED Course and Treatment: 06/28/17 23:37 Impression: 42 year old male presents for alcohol intoxication. Differential Diagnosis included but are not limited to: alcohol abuse Plan: -- Reassess and disposition Prior Visits: Notes and results from previous visits were reviewed. On 06/27/2017, pt was seen for stomach discomfort. Pt was d/c home. Progress Notes: 06/29/17 05:20 Pt awake, alert, ambulating with steady gait. Clinically sober. Pt stable for d/ c. - Scribe Statement The provider has reviewed the documentation as recorded by the Scribe Catherine Zhou All medical record entries made by the Scribe were at my direction and personally dictated by me. I have reviewed the chart and agree that the record accurately reflects my personal performance of the history, physical exam, medical decision making, and the department course for this patient. I have also personally directed, reviewed, and agree with the discharge instructions and disposition. Disposition/Present on Arrival - Present on Arrival Any Indicators Present on Arrival: No History of DVT/PE: No History of Uncontrolled Diabetes: No Urinary Catheter: No History of Decub. Ulcer: No History Surgical Site Infection Following: None - Disposition Have Diagnosis and Disposition been Completed?: Yes Diagnosis: Alcohol abuse Disposition: HOME/ ROUTINE Disposition Time: 05:07 Patient Plan: Discharge Patient Problems: Current Active Problems Problem Status Onset Alcohol abuse Acute Condition: GOOD Discharge Instructions (ExitCare): Abuse of Alcohol (ED) Referrals: Michael Cevallos, [Primary Care Provider] - Follow up with primary Alcoholics Anonymous [Outside] - Follow up with primary Forms: [employer] (Israeli)
[2017-06-29 01:27] VITALS: RESP 18; O2SAT 100
[2017-06-29 05:16] VITALS: BP 137/94; PULSE 65
== END 2017-06-29 05:23 | disposition home or self-care (01) ==
LOC: ED 22:41
DX: F10.129 Alcohol abuse with intoxication, unspecified (principal); I10 Essential (primary) hypertension

== ENCOUNTER 2017-07-01 23:49 | Emergency (ER) | payer MEDICAID ==
[2017-07-01 23:49] VITALS: BMI 22.6
[2017-07-02] MEDS ORDERED: Albuterol-Ipratrop 3 mg / 0.5 (3 ml) UD IH STA (00:33)
--- NOTE | 2017-07-02 00:36 | ED PDOC ---
Arrival/HPI - General Chief Complaint: GI Problem Time Seen by Provider: 07/02/17 00:24 Historian: Patient - History of Present Illness Narrative History of Present Illness (Text): 07/02/17 00:30 Felix Glasgow is a 42 year old male, whose past medical history includes gastritis, alcoholic abuse, pancreatitis, and hypertension, who presents to the emergency department complaining of shortness of breath tonight. Patient denies any fever, chills, chest pain, shortness of breath, abdominal pain, nausea, vomiting, diarrhea, urinary symptoms, back pain, neck pain, headache, dizziness , or any other complaints. Symptom Onset: Gradual Symptom Course: Unchanged Activities at Onset: Light Context: Home Past Medical History - Provider Review Nursing Documentation Reviewed: Yes - Past History Past History: No Previous - Infectious Disease Hx of Infectious Diseases: None - Tetanus Immunization Tetanus Immunization: Unknown - Past Medical History Past Medical History: No Previous - Cardiac Hx Cardiac Disorders: Yes Hx Hypertension: Yes - Pulmonary Hx Respiratory Disorders: No - Neurological Hx Neurological Disorder: No - HEENT Hx HEENT Disorder: No - Renal Hx Renal Disorder: No - Endocrine/Metabolic Hx Endocrine Disorders: No - Hematological/Oncological Hx Blood Disorders: No - Integumentary Hx Dermatological Disorder: No - Musculoskeletal/Rheumatological Hx Musculoskeletal Disorders: No - Gastrointestinal Hx Gastrointestinal Disorders: Yes Hx Gastroesophageal Reflux: Yes Hx Pancreatitis: Yes - Genitourinary/Gynecological Hx Genitourinary Disorders: No Hx Sexually Transmitted Diseases: No - Psychiatric Hx Psychophysiologic Disorder: No Hx Substance Use: Yes - Past Surgical History Past Surgical History: No Previous - Surgical History Hx Amputation: No Hx Appendectomy: No Hx Cardiac Catheterization: No Hx Cholecystectomy: No Hx Coronary Stent: No Hx Gastric Bypass Surgery: No Hx Hysterectomy: No Hx Joint Replacement: No Hx Kidney Transplant: No Hx Liver Transplant: No Hx Mastectomy: No Hx Musculoskeletal Surgery: No Hx Open Heart Surgery: No Hx Orthopedic Surgery: No Hx Splenectomy: No Hx Valve Replacement: No - Anesthesia Hx Anesthesia: No Hx Anesthesia Reactions: No Hx Malignant Hyperthermia: No - Suicidal Assessment Feels Threatened In Home Enviroment: No Family/Social History - Physician Review Nursing Documentation Reviewed: Yes Family/Social History: Unknown Family HX Smoking Status: Smoker Currrent Status Unknown Hx Alcohol Use: Yes Amount per day: 24 Hx Substance Use: Yes Allergies/Home Meds Allergies/Adverse Reactions: Allergies No Known Allergies Allergy (Verified 07/02/17 21:49) Home Medications: Home Meds Medication Instructions Recorded Confirmed No Known Home Med 06/19/17 07/02/17 Review of Systems - Physician Review All systems were reviewed & negative as marked: Yes - Review of Systems Constitutional: Normal. absent: Fevers Eyes: Normal ENT: Normal Respiratory: SOB. absent: Cough Cardiovascular: Normal. absent: Chest Pain Gastrointestinal: Normal. absent: Abdominal Pain, Diarrhea, Nausea, Vomiting Genitourinary Male: Normal. absent: Dysuria, Frequency, Hematuria, Urinary Output Changes Musculoskeletal: Normal. absent: Back Pain, Neck Pain Skin: Normal. absent: Rash Neurological: Normal. absent: Headache, Dizziness Endocrine: Normal Hemo/Lymphatic: Normal Psychiatric: Normal Physical Exam Vital Signs Reviewed: Yes Vital Signs Temp Pulse Resp BP Pulse Ox 07/02/17 05:00 98.5 F 78 16 132/85 100 07/02/17 03:00 98.6 F 70 16 130/82 100 07/02/17 01:49 98.3 F 77 16 137/85 100 07/02/17 00:29 98.1 F 76 18 143/84 99 07/01/17 23:49 98.3 F 80 17 140/82 100 Temperature: Afebrile Blood Pressure: Normal Pulse: Regular Respiratory Rate: Normal Appearance: Positive for: Well-Appearing, Non-Toxic, Comfortable Pain Distress: None Mental Status: Positive for: Alert and Oriented X 3 - Systems Exam Head: Present: Atraumatic, Normocephalic Pupils: Present: PERRL Extroacular Muscles: Present: EOMI Conjunctiva: Present: Normal Mouth: Present: Moist Mucous Membranes Neck: Present: Normal Range of Motion Respiratory/Chest: Present: Clear to Auscultation, Good Air Exchange. No: Respiratory Distress, Accessory Muscle Use Cardiovascular: Present: Regular Rate and Rhythm, Normal S1, S2. No: Murmurs Abdomen: Present: Normal Bowel Sounds. No: Tenderness, Distention, Peritoneal Signs Back: Present: Normal Inspection Upper Extremity: Present: Normal Inspection. No: Cyanosis, Edema Lower Extremity: Present: Normal Inspection. No: Edema Neurological: Present: GCS=15, CN II-XII Intact, Speech Normal Skin: Present: Warm, Dry, Normal Color. No: Rashes Psychiatric: Present: Alert, Oriented x 3, Normal Insight, Normal Concentration Medical Decision Making ED Course and Treatment: 07/02/17 00:30 Impression: 42 year old male complaining of shortness of breath tonight. Plan: -- Labs, alcohol level -- Chest X-ray -- Duoneb -- Reassess and disposition Prior Visits: Notes and results from previous visits were reviewed. On 06/28/2017, pt was seen in the Emergency department for alcohol intoxication. Pt was d/c home. Progress Notes: 07/02/17 01:19 CXR Impression: As read by me, no pneumothorax, no pneumonia, no cardiomegaly, no infiltrates 07/02/17 06:14 On re-evaluation, patient feels better and is in no acute distress. I have discussed the results and plan with the patient, who expresses understanding. Patient in agreement with plan to be discharged home. Patient is stable for discharge. Patient was instructed to follow up with physician or return if symptoms worsen or new concerning symptoms arise. Re-evaluation Time: 06:14 Reassessment Condition: Re-examined, Improved - Lab Interpretations Lab Results: 07/02/17 00:40 07/02/17 00:40 Lab Results 07/02/17 00:40: Alcohol, Quantitative 149 H 07/02/17 00:40: Sodium 137, Potassium 3.3 L, Chloride 96 L, Carbon Dioxide 29, Anion Gap 15, BUN 2 L, Creatinine 0.7 L, Est GFR ( Amer) > 60, Est GFR ( Non-Af Amer) > 60, Random Glucose 103, Calcium 9.2, Total Bilirubin 1.6 H, AST 390 H D, ALT 104 H, Alkaline Phosphatase 228 H, Total Protein 8.5 H, Albumin 4.4 , Globulin 4.1, Albumin/Globulin Ratio 1.1 07/02/17 00:40: WBC 5.6 D, RBC 3.39 L, Hgb 11.8 L, Hct 35.5 L, MCV 104.7, MCH 34.8, MCHC 33.2, RDW 15.7 H, Plt Count 116 L, MPV 10.5, Gran % 58.1, Lymph % ( Auto) 33.0, [place] % (Auto) 7.3 H, Eos % (Auto) 1.4 L, Baso % (Auto) 0.2, Gran # 3.27, Lymph # 1.9, [place] # 0.4, Eos # 0.1, Baso # 0.01 I have reviewed the lab results: Yes - RAD Interpretation Radiology Orders: 07/02/17 00:33 CHEST PORTABLE [RAD] Stat Vascular Technician: ED Physician - Medication Orders Current Medication Orders: Discontinued Medications Albuterol/Ipratropium (Duoneb 3 Mg/0.5 Mg (3 Ml) Ud) 3 ml IH STAT STA Stop: 07/02/17 00:34 Last Admin: 07/02/17 00:48 Dose: 3 ml - Scribe Statement The provider has reviewed the documentation as recorded by the Becca Zhou Provider Scribe Attestation: All medical record entries made by the Scribe were at my direction and personally dictated by me. I have reviewed the chart and agree that the record accurately reflects my personal performance of the history, physical exam, medical decision making, and the department course for this patient. I have also personally directed, reviewed, and agree with the discharge instructions and disposition. Disposition/Present on Arrival - Present on Arrival Any Indicators Present on Arrival: No History of DVT/PE: No History of Uncontrolled Diabetes: No Urinary Catheter: No History of Decub. Ulcer: No History Surgical Site Infection Following: None - Disposition Have Diagnosis and Disposition been Completed?: Yes Diagnosis: Alcohol abuse Disposition: HOME/ ROUTINE Disposition Time: 06:14 Condition: GOOD Referrals: Sheng Cole MD [Primary Care Provider] - Follow up with primary Forms: [email or web address] (Macanese)
[2017-07-02 01:08] LABS: ALB/GLOB RATIO 1.1 (1.1-1.8); ALKALINE PHOSPHATASE 228 U/L (38-126); ALT/SGPT 104 U/L (7-56); AST/SGOT 390 U/L (17-59); BILIRUBIN,TOTAL 1.6 mg/dL (0.2-1.3); BLOOD UREA NITROGEN 2 mg/dL (7-21); CALCIUM 9.2 mg/dL (8.4-10.5); CARBON DIOXIDE 29 mmol/L (21-33); CHLORIDE 96 mmol/L (98-107); GFR AFRICAN-AMERICAN > 60; GLUCOSE,RANDOM 103 mg/dL (70-110); POTASSIUM 3.3 mmol/L (3.6-5.0); SODIUM 137 mmol/L (132-148); TOTAL PROTEIN 8.5 g/dL (5.8-8.3)
[2017-07-02 01:12] LABS: BASO # 0.01 K/mm3 (0.0-2.0); BASO % 0.2 % (0.0-3.0); EOS # 0.1 (0.0-0.7); EOS % 1.4 % (1.5-5.0); GRAN # 3.27 (1.4-6.5); GRAN % 58.1 % (50.0-68.0); HEMATOCRIT 35.5 % (42.0-52.0); LYMPH # 1.9 (1.2-3.4); MEAN CELL VOLUME 104.7 fl (80.0-105.0); MEAN CORPUSCULAR HEMOGLOBIN 34.8 pg (25.0-35.0); MEAN CORPUSCULAR HGB CONC 33.2 g/dl (31.0-37.0); MEAN PLATELET VOLUME 10.5 fl (7.0-11.0); MONO # 0.4 (0.1-0.6); MONO % 7.3 % (1.0-6.0); RED CELL DISTRIBUTION WIDTH 15.7 % (11.5-14.5)
[2017-07-02 01:23] LABS: WHITE BLOOD COUNT 5.6 10^3/ul (4.5-11.0)
[2017-07-02 03:41] VITALS: RESP 16; O2SAT 100
[2017-07-02 05:15] VITALS: BP 132/85; PULSE 78; TEMP 98.5
--- NOTE | 2017-07-02 08:52 | RAD ---
HISTORY: Shortness of breath COMPARISON: 03/12/2017 FINDINGS: LUNGS: The lungs are well inflated and clear. PLEURA: No significant pleural effusion identified, no pneumothorax apparent. CARDIOVASCULAR: Normal. OSSEOUS STRUCTURES: No significant abnormalities. VISUALIZED UPPER ABDOMEN: Normal. OTHER FINDINGS: None. IMPRESSION: No active pulmonary disease.
== END 2017-07-02 06:27 | disposition home or self-care (01) ==
LOC: ED 23:49
DX: F10.129 Alcohol abuse with intoxication, unspecified (principal); Y90.6 Blood alcohol level of 120-199 mg/100 ml; I10 Essential (primary) hypertension

== ENCOUNTER 2017-07-02 21:30 | Emergency (ER) | payer MEDICAID ==
[2017-07-02 21:58] VITALS: TEMP 98.1; BMI 22.9
[2017-07-02] MEDS ORDERED: Albuterol 0.083% Inhal Sol (2.5 mg/3 mL) UD IH STA (22:21)
[2017-07-02] MEDS ORDERED: Sodium Chloride 0.9% 1,000 ML IV STA (22:21)
--- NOTE | 2017-07-02 22:38 | ED PDOC ---
Arrival/HPI - General Chief Complaint: Medical Clearance Time Seen by Provider: 07/02/17 21:32 Historian: Patient - History of Present Illness Narrative History of Present Illness (Text): 07/02/17 22:37 A 42 year old male, whose past medical history includes gastritis, alcohol abuse , pancreatitis and hypertension, presents to the emergency department complaining of stomach discomfort. Patient admits to drinking alcohol. Patient also states he feels he has slight wheezing. Patient denies any chest pain, shortness of breath, fever, chills or any other complaints at this time. Symptom Onset: Sudden Symptom Course: Unchanged Activities at Onset: Rest Context: Home Past Medical History - Provider Review Nursing Documentation Reviewed: Yes - Past History Past History: No Previous - Infectious Disease Hx of Infectious Diseases: None - Tetanus Immunization Tetanus Immunization: Unknown - Past Medical History Past Medical History: No Previous - Cardiac Hx Cardiac Disorders: Yes Hx Hypertension: Yes - Pulmonary Hx Respiratory Disorders: No - Neurological Hx Neurological Disorder: No - HEENT Hx HEENT Disorder: No - Renal Hx Renal Disorder: No - Endocrine/Metabolic Hx Endocrine Disorders: No - Hematological/Oncological Hx Blood Disorders: No - Integumentary Hx Dermatological Disorder: No - Musculoskeletal/Rheumatological Hx Musculoskeletal Disorders: No - Gastrointestinal Hx Gastrointestinal Disorders: Yes Hx Gastroesophageal Reflux: Yes Hx Pancreatitis: Yes - Genitourinary/Gynecological Hx Genitourinary Disorders: No Hx Sexually Transmitted Diseases: No - Psychiatric Hx Psychophysiologic Disorder: No Hx Substance Use: Yes - Past Surgical History Past Surgical History: No Previous - Surgical History Hx Amputation: No Hx Appendectomy: No Hx Cardiac Catheterization: No Hx Cholecystectomy: No Hx Coronary Stent: No Hx Gastric Bypass Surgery: No Hx Hysterectomy: No Hx Joint Replacement: No Hx Kidney Transplant: No Hx Liver Transplant: No Hx Mastectomy: No Hx Musculoskeletal Surgery: No Hx Open Heart Surgery: No Hx Orthopedic Surgery: No Hx Splenectomy: No Hx Valve Replacement: No - Anesthesia Hx Anesthesia: No Hx Anesthesia Reactions: No Hx Malignant Hyperthermia: No - Suicidal Assessment Feels Threatened In Home Enviroment: No Family/Social History - Physician Review Nursing Documentation Reviewed: Yes Family/Social History: No Known Family HX Smoking Status: Smoker Currrent Status Unknown Hx Alcohol Use: Yes Amount per day: 24 Hx Substance Use: Yes Allergies/Home Meds Allergies/Adverse Reactions: Allergies No Known Allergies Allergy (Verified 07/02/17 21:49) Home Medications: Home Meds Medication Instructions Recorded Confirmed No Known Home Med 06/19/17 07/02/17 Review of Systems - Physician Review All systems were reviewed & negative as marked: Yes - Review of Systems Constitutional: absent: Fevers, Other (chills) Respiratory: Wheezing. absent: SOB Cardiovascular: absent: Chest Pain Gastrointestinal: Other (stomach discomfort) Physical Exam Vital Signs Reviewed: Yes Vital Signs Temp Pulse Resp BP Pulse Ox 07/03/17 06:05 68 18 134/78 98 07/03/17 05:00 68 18 114/62 98 07/03/17 03:10 70 18 126/64 100 07/02/17 21:49 98.1 F 79 17 120/70 95 07/02/17 21:48 98.1 F 76 17 120/70 95 Temperature: Afebrile Blood Pressure: Normal Pulse: Regular Respiratory Rate: Normal Appearance: Positive for: Well-Appearing, Non-Toxic, Comfortable Pain Distress: None Mental Status: Positive for: Alert and Oriented X 3 - Systems Exam Head: Present: Atraumatic, Normocephalic Pupils: Present: PERRL Extroacular Muscles: Present: EOMI Conjunctiva: Present: Normal Mouth: Present: Moist Mucous Membranes Neck: Present: Normal Range of Motion Respiratory/Chest: Present: Wheezes, Other (faint and expiratory wheezing right lung field). No: Respiratory Distress, Accessory Muscle Use Cardiovascular: Present: Regular Rate and Rhythm, Normal S1, S2. No: Murmurs Abdomen: Present: Normal Bowel Sounds. No: Tenderness, Distention, Peritoneal Signs Back: Present: Normal Inspection Upper Extremity: Present: Normal Inspection. No: Cyanosis, Edema Lower Extremity: Present: Normal Inspection. No: Edema Neurological: Present: GCS=15, CN II-XII Intact, Speech Normal, Motor Func Grossly Intact, Normal Sensory Function Skin: Present: Warm, Dry, Normal Color. No: Rashes Psychiatric: Present: Alert, Oriented x 3, Intoxicated Medical Decision Making ED Course and Treatment: 07/02/17 22:35 Impression: A 42 year old male with stomach discomfort, alcohol intoxication and slight wheezing. Plan: -- labs -- IV fluids, Toradol, Pepcid, Albuterol -- Reassess and disposition Prior Visits: Notes and results from previous visits were reviewed. Patient was last seen in the emergency department on 07/01/17 for evaluation of shortness of breath. Progress Notes: 07/03/17 06:07 Pt. awake alert sober. - Lab Interpretations Lab Results: 07/02/17 22:37 07/02/17 22:37 Lab Results 07/02/17 22:37: WBC 5.9, RBC 3.20 L, Hgb 11.4 L, Hct 33.8 L, MCV 105.6 H, MCH 35.6 H, MCHC 33.7, RDW 15.8 H, Plt Count 123, MPV 11.0 07/02/17 22:37: Alcohol, Quantitative 195 H 07/02/17 22:37: Sodium 139, Potassium 3.2 L, Chloride 99, Carbon Dioxide 30, Anion Gap 14, BUN 4 L, Creatinine 0.7 L, Est GFR ( Amer) > 60, Est GFR ( Non-Af Amer) > 60, Random Glucose 105, Calcium 9.2, Total Bilirubin 1.0, AST 221 H D, ALT 91 H, Alkaline Phosphatase 209 H, Total Protein 8.3, Albumin 4.4, Globulin 3.9, Albumin/Globulin Ratio 1.1, Lipase 14 L I have reviewed the lab results: Yes - Medication Orders Current Medication Orders: Discontinued Medications Albuterol Sulfate (Albuterol 0.083% Inhal Lindsey (2.5 Mg/3 Ml) Ud) 2.5 mg IH STAT STA Stop: 07/02/17 22:22 Last Admin: 07/02/17 22:43 Dose: 2.5 mg Famotidine (Pepcid) 20 mg IVP STAT STA Stop: 07/02/17 22:22 Last Admin: 07/02/17 22:43 Dose: 20 mg IVP Administration Document 07/02/17 22:43 AD (Rec: 07/02/17 22:43 AD [id number]) Charges for Administration # of IVP Administrations 1 Sodium Chloride (Sodium Chloride 0.9%) 1,000 mls @ 999 mls/hr IV .Q1H1M STA Stop: 07/02/17 23:21 Last Admin: 07/02/17 22:43 Dose: 999 mls/hr eMAR Start Stop Document 07/02/17 22:43 AD (Rec: 07/02/17 22:43 AD [id number]) Intravenous Solution Start Date 07/02/17 Start Time 22:43 Ketorolac Tromethamine (Toradol) 30 mg IVP ONCE ONE Stop: 07/02/17 22:22 Last Admin: 07/02/17 22:43 Dose: 30 mg MAR Pain Assessment Document 07/02/17 22:43 AD (Rec: 07/02/17 22:43 AD [id number]) Pain Reassessment Is this a pain reassessment? No Presence of Pain Presence of Pain Yes Location Pain Location Body Site Abdomen Description Description Stabbing Intensity of Pain at present 8 Pain Behavior Facial Grimacing IVP Administration Document 07/02/17 22:43 AD (Rec: 07/02/17 22:43 AD [id number]) Charges for Administration # of IVP Administrations 1 Potassium Chloride (K-Dur 20 Meq Er Tab) 20 meq PO STAT STA Stop: 07/02/17 23:21 Last Admin: 07/02/17 23:30 Dose: 20 meq - Scribe Statement The provider has reviewed the documentation as recorded by the Becca Alston Provider Scribe Attestation: All medical record entries made by the Scribe were at my direction and personally dictated by me. I have reviewed the chart and agree that the record accurately reflects my personal performance of the history, physical exam, medical decision making, and the department course for this patient. I have also personally directed, reviewed, and agree with the discharge instructions and disposition. Disposition/Present on Arrival - Present on Arrival Any Indicators Present on Arrival: No History of DVT/PE: No History of Uncontrolled Diabetes: No Urinary Catheter: No History of Decub. Ulcer: No History Surgical Site Infection Following: None - Disposition Have Diagnosis and Disposition been Completed?: Yes Diagnosis: Alcohol abuse, Gastritis Disposition: HOME/ ROUTINE Disposition Time: 06:05 Patient Plan: Discharge Patient Problems: Current Active Problems Problem Status Onset Alcohol abuse Acute Gastritis Acute Condition: GOOD Additional Instructions: Avoid alcohol/follow up with your doctor Referrals: Sheng Cole MD [Primary Care Provider] - Follow up with primary Forms: [employer] (Spanish)
[2017-07-02 22:48] LABS: HEMATOCRIT 33.8 % (42.0-52.0); MEAN CELL VOLUME 105.6 fl (80.0-105.0); MEAN CORPUSCULAR HEMOGLOBIN 35.6 pg (25.0-35.0); MEAN CORPUSCULAR HGB CONC 33.7 g/dl (31.0-37.0); RED CELL DISTRIBUTION WIDTH 15.8 % (11.5-14.5); WHITE BLOOD COUNT 5.9 10^3/ul (4.5-11.0)
[2017-07-02 22:54] LABS: ALB/GLOB RATIO 1.1 (1.1-1.8); ALKALINE PHOSPHATASE 209 U/L (38-126); ALT/SGPT 91 U/L (7-56); AST/SGOT 221 U/L (17-59); BLOOD UREA NITROGEN 4 mg/dL (7-21); CALCIUM 9.2 mg/dL (8.4-10.5); CARBON DIOXIDE 30 mmol/L (21-33); CHLORIDE 99 mmol/L (98-107); GFR AFRICAN-AMERICAN > 60; GLUCOSE,RANDOM 105 mg/dL (70-110); LIPASE 14 U/L (23-300); POTASSIUM 3.2 mmol/L (3.6-5.0); SODIUM 139 mmol/L (132-148); TOTAL PROTEIN 8.3 g/dL (5.8-8.3)
[2017-07-02] MEDS ORDERED: Potassium Chloride 20 mEq ER Tab PO STA (23:20)
[2017-07-03 03:11] VITALS: RESP 18
[2017-07-03 05:02] VITALS: PULSE 68; O2SAT 98
[2017-07-03 06:07] VITALS: BP 134/78
== END 2017-07-03 06:22 | disposition home or self-care (01) ==
LOC: ED 21:30
DX: K29.70 Gastritis, unspecified, without bleeding (principal); F10.129 Alcohol abuse with intoxication, unspecified; I10 Essential (primary) hypertension
CPT/HCPCS: 80053; 80320; 83690; 85027; 96374; 96375; 99283; J1885; J7040

== ENCOUNTER 2017-07-07 23:12 | Emergency (ER) | payer MEDICAID ==
[2017-07-07 23:31] VITALS: BMI 21.5
[2017-07-08] MEDS ORDERED: Sodium Chloride 0.9% 1,000 ML IV SCH (00:15)
--- NOTE | 2017-07-08 00:15 | ED PDOC ---
Arrival/HPI - General Chief Complaint: Abdominal Pain Time Seen by Provider: 07/07/17 23:28 Historian: Patient - History of Present Illness Narrative History of Present Illness (Text): 07/08/17 00:15 A 42 year old male, whose past medical history includes alcohol abuse, hypertension, gastritis and pancreatitis, presents to the emergency department complaining of stomach discomfort. Patient admits to drinking alcohol earlier today, which upsets his stomach. Patient denies any vomiting, diarrhea, fever, chills or any other complaints at this time. Symptom Onset: Sudden Symptom Course: Unchanged Activities at Onset: Rest Context: Home Past Medical History - Provider Review Nursing Documentation Reviewed: Yes - Past History Past History: No Previous - Infectious Disease Hx of Infectious Diseases: None - Tetanus Immunization Tetanus Immunization: Unknown - Past Medical History Past Medical History: No Previous - Cardiac Hx Cardiac Disorders: Yes Hx Hypertension: Yes - Pulmonary Hx Respiratory Disorders: No - Neurological Hx Neurological Disorder: No - HEENT Hx HEENT Disorder: No - Renal Hx Renal Disorder: No - Endocrine/Metabolic Hx Endocrine Disorders: No - Hematological/Oncological Hx Blood Disorders: No - Integumentary Hx Dermatological Disorder: No - Musculoskeletal/Rheumatological Hx Musculoskeletal Disorders: No - Gastrointestinal Hx Gastrointestinal Disorders: Yes Hx Gastroesophageal Reflux: Yes Hx Pancreatitis: Yes - Genitourinary/Gynecological Hx Genitourinary Disorders: No Hx Sexually Transmitted Diseases: No - Psychiatric Hx Psychophysiologic Disorder: No Hx Substance Use: Yes - Past Surgical History Past Surgical History: No Previous - Surgical History Hx Amputation: No Hx Appendectomy: No Hx Cardiac Catheterization: No Hx Cholecystectomy: No Hx Coronary Stent: No Hx Gastric Bypass Surgery: No Hx Hysterectomy: No Hx Joint Replacement: No Hx Kidney Transplant: No Hx Liver Transplant: No Hx Mastectomy: No Hx Musculoskeletal Surgery: No Hx Open Heart Surgery: No Hx Orthopedic Surgery: No Hx Splenectomy: No Hx Valve Replacement: No - Anesthesia Hx Anesthesia: No Hx Anesthesia Reactions: No Hx Malignant Hyperthermia: No - Suicidal Assessment Feels Threatened In Home Enviroment: No Family/Social History - Physician Review Nursing Documentation Reviewed: Yes Family/Social History: No Known Family HX Smoking Status: Smoker Currrent Status Unknown Hx Alcohol Use: Yes Amount per day: 24 Hx Substance Use: Yes Allergies/Home Meds Allergies/Adverse Reactions: Allergies No Known Allergies Allergy (Verified 07/07/17 23:30) Home Medications: Home Meds Medication Instructions Recorded Confirmed No Known Home Med 06/19/17 07/07/17 Review of Systems - Physician Review All systems were reviewed & negative as marked: Yes - Review of Systems Constitutional: absent: Fevers, Other (chills) Gastrointestinal: Other (stomach discomfort). absent: Diarrhea, Vomiting Physical Exam Vital Signs Reviewed: Yes Vital Signs Temp Pulse Resp BP Pulse Ox 07/08/17 02:56 80 17 112/74 98 07/07/17 23:32 97.8 F 71 16 117/74 99 07/07/17 23:28 97.8 F 71 16 117/74 99 Temperature: Afebrile Blood Pressure: Normal Pulse: Regular Respiratory Rate: Normal Appearance: Positive for: Well-Appearing, Non-Toxic, Comfortable Pain Distress: None Mental Status: Positive for: Alert and Oriented X 3 - Systems Exam Head: Present: Atraumatic, Normocephalic Pupils: Present: PERRL Extroacular Muscles: Present: EOMI Conjunctiva: Present: Normal Mouth: Present: Moist Mucous Membranes Neck: Present: Normal Range of Motion Respiratory/Chest: Present: Clear to Auscultation, Good Air Exchange. No: Respiratory Distress, Accessory Muscle Use Cardiovascular: Present: Regular Rate and Rhythm, Normal S1, S2. No: Murmurs Abdomen: Present: Normal Bowel Sounds. No: Tenderness, Distention, Peritoneal Signs Back: Present: Normal Inspection Upper Extremity: Present: Normal Inspection. No: Cyanosis, Edema Lower Extremity: Present: Normal Inspection. No: Edema Neurological: Present: GCS=15, CN II-XII Intact, Speech Normal Skin: Present: Warm, Dry, Normal Color. No: Rashes Psychiatric: Present: Alert, Oriented x 3, Normal Insight, Normal Concentration Medical Decision Making ED Course and Treatment: 07/08/17 00:14 Impression: A 42 year old male with stomach discomfort after drinking alcohol earlier today. Plan: -- labs -- Pepcid, IV fluids -- Reassess and disposition Prior Visits: Notes and results from previous visits were reviewed. Patient was last seen in the emergency department on 07/02/17 for evaluation of stomach discomfort and alcohol intoxication. Progress Notes: - Lab Interpretations Lab Results: 07/08/17 00:11 07/08/17 00:11 Lab Results 07/08/17 00:11: WBC 4.7 D, RBC 2.83 L, Hgb 9.6 L, Hct 30.4 L, MCV 107.4 H, MCH 33.9, MCHC 31.6, RDW 16.2 H, Plt Count 183, MPV 9.4 07/08/17 00:11: Sodium 150 H, Potassium 3.1 L, Chloride 110 H, Carbon Dioxide 30 , Anion Gap 13, BUN 4 L, Creatinine 0.6 L, Est GFR ( Amer) > 60, Est GFR (Non-Af Amer) > 60, Random Glucose 120 H, Calcium 8.5, Total Bilirubin 0.3, AST 68 H D, ALT 45, Alkaline Phosphatase 128 H D, Total Protein 7.0, Albumin 3.7, Globulin 3.3, Albumin/Globulin Ratio 1.1, Lipase < 10 L I have reviewed the lab results: Yes - Medication Orders Current Medication Orders: Sodium Chloride (Sodium Chloride 0.9%) 1,000 mls @ 100 mls/hr IV .Q10H BRUCE Last Admin: 07/08/17 00:13 Dose: 100 mls/hr eMAR Start Stop Document 07/08/17 00:13 IT (Rec: 07/08/17 00:13 IT [facility] [place] [facility] [email or web address] Intravenous Solution Start Date 07/08/17 Start Time 00:13 Discontinued Medications Famotidine (Pepcid) 20 mg IVP STAT STA Stop: 07/08/17 00:07 Last Admin: 07/08/17 00:17 Dose: 20 mg IVP Administration Document 07/08/17 00:17 IT (Rec: 07/08/17 00:17 [email or web address]) Charges for Administration # of IVP Administrations 1 Potassium Chloride (K-Dur 20 Meq Er Tab) 40 meq PO STAT STA Stop: 07/08/17 02:41 Last Admin: 07/08/17 02:53 Dose: 40 meq - Scribe Statement The provider has reviewed the documentation as recorded by the Becca Alston Provider Scribe Attestation: All medical record entries made by the Scribe were at my direction and personally dictated by me. I have reviewed the chart and agree that the record accurately reflects my personal performance of the history, physical exam, medical decision making, and the department course for this patient. I have also personally directed, reviewed, and agree with the discharge instructions and disposition. Disposition/Present on Arrival - Present on Arrival Any Indicators Present on Arrival: No History of DVT/PE: No History of Uncontrolled Diabetes: No Urinary Catheter: No History of Decub. Ulcer: No History Surgical Site Infection Following: None - Disposition Have Diagnosis and Disposition been Completed?: Yes Diagnosis: Gastritis Disposition: HOME/ ROUTINE Disposition Time: 04:26 Patient Plan: Discharge Condition: STABLE Discharge Instructions (ExitCare): Gastritis (ED) Additional Instructions: Dont drink alcohol/follow up with your doctor Referrals: Sheng Cole MD [Primary Care Provider] - Follow up with primary Forms: [employer] (Panamanian)
[2017-07-08 00:39] LABS: HEMATOCRIT 30.4 % (42.0-52.0); MEAN CELL VOLUME 107.4 fl (80.0-105.0); MEAN CORPUSCULAR HEMOGLOBIN 33.9 pg (25.0-35.0); MEAN CORPUSCULAR HGB CONC 31.6 g/dl (31.0-37.0); MEAN PLATELET VOLUME 9.4 fl (7.0-11.0); RED CELL DISTRIBUTION WIDTH 16.2 % (11.5-14.5); WHITE BLOOD COUNT 4.7 10^3/ul (4.5-11.0)
[2017-07-08 01:11] LABS: ALB/GLOB RATIO 1.1 (1.1-1.8); ALKALINE PHOSPHATASE 128 U/L (38-126); ALT/SGPT 45 U/L (7-56); AST/SGOT 68 U/L (17-59); BILIRUBIN,TOTAL 0.3 mg/dL (0.2-1.3); BLOOD UREA NITROGEN 4 mg/dL (7-21); CALCIUM 8.5 mg/dL (8.4-10.5); CARBON DIOXIDE 30 mmol/L (21-33); CHLORIDE 110 mmol/L (98-107); GFR AFRICAN-AMERICAN > 60; GLUCOSE,RANDOM 120 mg/dL (70-110); LIPASE < 10 U/L (23-300); POTASSIUM 3.1 mmol/L (3.6-5.0); SODIUM 150 mmol/L (132-148)
[2017-07-08] MEDS ORDERED: Potassium Chloride 20 mEq ER Tab PO STA (02:40)
[2017-07-08 02:57] VITALS: RESP 17; O2SAT 98
[2017-07-08 05:53] VITALS: BP 125/70; PULSE 78; TEMP 98.2
== END 2017-07-08 05:53 | disposition home or self-care (01) ==
LOC: ED 23:12
DX: K29.70 Gastritis, unspecified, without bleeding (principal); I10 Essential (primary) hypertension; K21.9 Gastro-esophageal reflux disease without esophagitis; F17.210 Nicotine dependence, cigarettes, uncomplicated
CPT/HCPCS: 80053; 83690; 85027; 96374; 99283; J7040

== ENCOUNTER 2017-07-11 21:41 | Emergency (ER) | payer MEDICAID ==
[2017-07-11 21:42] VITALS: BMI 21.5
[2017-07-11 22:51] VITALS: BP 113/77; PULSE 86; RESP 18; TEMP 97.7; O2SAT 98
== END 2017-07-11 23:00 | disposition left against medical advice (07) ==
LOC: ED 21:41
DX: Z02.89 Encounter for other administrative examinations (principal); Z00.00 Encounter for general adult medical examination without abnormal findings

== ENCOUNTER 2017-08-19 19:45 | Emergency (ER) | payer MEDICAID ==
[2017-08-19 19:45] VITALS: BMI 21.5
== END 2017-08-19 22:11 | disposition left against medical advice (07) ==
LOC: ED 19:45
DX: Z02.89 Encounter for other administrative examinations (principal); R10.9 Unspecified abdominal pain

== ENCOUNTER 2017-08-19 22:52 | Emergency (ER) | payer MEDICAID ==
[2017-08-19 22:52] VITALS: BMI 21.5
== END 2017-08-20 03:12 | disposition left against medical advice (07) ==
LOC: ED 22:52
DX: Z02.89 Encounter for other administrative examinations (principal); R10.9 Unspecified abdominal pain

== ENCOUNTER 2017-09-07 01:26 | Emergency (ER) | payer MEDICAID ==
[2017-09-07 01:26] VITALS: BMI 21.5
== END 2017-09-07 04:11 | disposition left against medical advice (07) ==
LOC: ED 01:26
DX: Z02.89 Encounter for other administrative examinations (principal); R10.9 Unspecified abdominal pain

== ENCOUNTER 2017-10-05 00:58 | Emergency (ER) | payer MEDICAID ==
[2017-10-05 00:58] VITALS: BMI 21.5
--- NOTE | 2017-10-05 01:58 | ED PDOC ---
Arrival/HPI - General Chief Complaint: Abdominal Pain Time Seen by Provider: 10/05/17 01:03 Historian: Patient - History of Present Illness Narrative History of Present Illness (Text): 10/05/17 01:58 A 42 year old male, whose past medical history includes alcohol abuse, hypertension, gastritis and pancreatitis, presents to the emergency department stating that he ingested ETOH this evening and wants a place to stay and rest. The patient denies fevers, chills, headache, dizziness, chest pain, shortness of breath, dyspnea on exertion, cough, abdominal pain, nausea, vomiting, diarrhea, back pain, neck pain, urinary/bowel changes, or any other complaint. Time/Duration: Prior to Arrival Symptom Onset: Sudden Symptom Course: Unchanged Context: Home Past Medical History - Provider Review Nursing Documentation Reviewed: Yes - Past History Past History: No Previous - Infectious Disease Hx of Infectious Diseases: None - Tetanus Immunization Tetanus Immunization: Unknown - Past Medical History Past Medical History: No Previous - Cardiac Hx Cardiac Disorders: Yes Hx Hypertension: Yes - Pulmonary Hx Respiratory Disorders: No - Neurological Hx Neurological Disorder: No - HEENT Hx HEENT Disorder: No - Renal Hx Renal Disorder: No - Endocrine/Metabolic Hx Endocrine Disorders: No - Hematological/Oncological Hx Blood Disorders: No - Integumentary Hx Dermatological Disorder: No - Musculoskeletal/Rheumatological Hx Musculoskeletal Disorders: No - Gastrointestinal Hx Gastrointestinal Disorders: Yes Hx Gastroesophageal Reflux: Yes Hx Pancreatitis: Yes - Genitourinary/Gynecological Hx Genitourinary Disorders: No Hx Sexually Transmitted Diseases: No - Psychiatric Hx Psychophysiologic Disorder: No Hx Substance Use: Yes - Past Surgical History Past Surgical History: No Previous - Surgical History Hx Amputation: No Hx Appendectomy: No Hx Cardiac Catheterization: No Hx Cholecystectomy: No Hx Coronary Stent: No Hx Gastric Bypass Surgery: No Hx Hysterectomy: No Hx Joint Replacement: No Hx Kidney Transplant: No Hx Liver Transplant: No Hx Mastectomy: No Hx Musculoskeletal Surgery: No Hx Open Heart Surgery: No Hx Orthopedic Surgery: No Hx Splenectomy: No Hx Valve Replacement: No - Anesthesia Hx Anesthesia: No Hx Anesthesia Reactions: No Hx Malignant Hyperthermia: No - Suicidal Assessment Feels Threatened In Home Enviroment: No Family/Social History - Physician Review Nursing Documentation Reviewed: Yes Family/Social History: No Known Family HX Smoking Status: Smoker Currrent Status Unknown Hx Alcohol Use: Yes Amount per day: 24 Hx Substance Use: Yes Allergies/Home Meds Allergies/Adverse Reactions: Allergies No Known Allergies Allergy (Verified 07/07/17 23:30) Home Medications: Home Meds Medication Instructions Recorded Confirmed No Known Home Med 06/19/17 07/07/17 Review of Systems - Physician Review All systems were reviewed & negative as marked: Yes - Review of Systems Respiratory: absent: SOB Cardiovascular: absent: Chest Pain Physical Exam - Physical Exam Narrative Physical Exam (Text): 10/05/17 02:00 Constitutional: No acute distress. Head: Normocephalic. Atraumatic. Eyes: PERRL. ENT: Moist mucous membranes. Neck: Supple. Cardiovascular: Regular rate. Chest: No tenderness. Respiratory: Clear to auscultation bilaterally. GI: Soft. Nontender. Nondistended. Back: No CVA tenderness. Musculoskeletal: No tenderness or swelling of extremities. Skin: No rash. Neurologic: Alert, no focal deficit. Vital Signs Reviewed: Yes Vital Signs Temp Pulse Resp BP Pulse Ox 10/05/17 04:02 72 17 132/78 100 10/05/17 01:21 98.1 F 70 18 139/84 98 Temperature: Afebrile Blood Pressure: Normal Pulse: Regular Respiratory Rate: Normal Appearance: Positive for: Comfortable, Unkept Pain Distress: None Mental Status: Positive for: Alert and Oriented X 3 Medical Decision Making ED Course and Treatment: 10/05/17 02:00 Impression: A 42 year old male presents to the emergency department stating that he wants to rest after drinking ETOH this evening. Plan: -- Reassess and disposition Progress Notes: 10/05/17 05:59 Patient awake, alert, steady gait, with , will be discharged. - Scribe Statement The provider has reviewed the documentation as recorded by the Scribe Serena Alarcon Provider Scribe Attestation: All medical record entries made by the Scribe were at my direction and personally dictated by me. I have reviewed the chart and agree that the record accurately reflects my personal performance of the history, physical exam, medical decision making, and the department course for this patient. I have also personally directed, reviewed, and agree with the discharge instructions and disposition. Disposition/Present on Arrival - Present on Arrival Any Indicators Present on Arrival: No History of DVT/PE: No History of Uncontrolled Diabetes: No Urinary Catheter: No History of Decub. Ulcer: No History Surgical Site Infection Following: None - Disposition Have Diagnosis and Disposition been Completed?: Yes Diagnosis: Alcohol abuse Disposition: HOME/ ROUTINE Disposition Time: 06:00 Patient Plan: Discharge Condition: STABLE Discharge Instructions (ExitCare): Alcohol Abuse and Alcoholism (DC) Referrals: Sheng Cole MD [Primary Care Provider] - Follow up with primary Forms: [employer] (Lebanese)
[2017-10-05 04:03] VITALS: RESP 17; O2SAT 100
[2017-10-05 06:13] VITALS: BP 136/78; PULSE 82; TEMP 98.2
== END 2017-10-05 06:13 | disposition home or self-care (01) ==
LOC: ED 00:58
DX: F10.10 Alcohol abuse, uncomplicated (principal); I10 Essential (primary) hypertension

== ENCOUNTER 2017-11-06 00:07 | Emergency (ER) | payer SELFPAY ==
[2017-11-06 00:07] VITALS: BMI 21.5
[2017-11-06 00:36] VITALS: RESP 18; O2SAT 96
--- NOTE | 2017-11-06 00:47 | ED PDOC ---
Arrival/HPI - General Chief Complaint: Abdominal Pain Time Seen by Provider: 11/06/17 00:36 Historian: Patient - History of Present Illness Narrative History of Present Illness (Text): 11/06/17 00:46 Felix Glasgow is a 42 year old male, whose past medical history includes alcohol abuse, hypertension, gastritis and pancreatitis, presents to the emergency department complaining of abdominal discomfort. Patient states symptoms are consistent with his usual abdominal discomfort and admits to drinking alcohol earlier today. Patient requesting a place to rest for the night. Patient denies any vomiting, diarrhea, fever, chills or any other complaints at this time. Time/Duration: Other (tonight) Symptom Onset: Gradual Symptom Course: Unchanged Activities at Onset: Light Past Medical History - Provider Review Nursing Documentation Reviewed: Yes - Past History Past History: No Previous - Infectious Disease Hx of Infectious Diseases: None - Tetanus Immunization Tetanus Immunization: Unknown - Past Medical History Past Medical History: No Previous - Cardiac Hx Cardiac Disorders: Yes Hx Hypertension: Yes - Pulmonary Hx Respiratory Disorders: No - Neurological Hx Neurological Disorder: No - HEENT Hx HEENT Disorder: No - Renal Hx Renal Disorder: No - Endocrine/Metabolic Hx Endocrine Disorders: No - Hematological/Oncological Hx Blood Disorders: No - Integumentary Hx Dermatological Disorder: No - Musculoskeletal/Rheumatological Hx Musculoskeletal Disorders: No - Gastrointestinal Hx Gastrointestinal Disorders: Yes Hx Gastroesophageal Reflux: Yes Hx Pancreatitis: Yes - Genitourinary/Gynecological Hx Genitourinary Disorders: No Hx Sexually Transmitted Diseases: No - Psychiatric Hx Psychophysiologic Disorder: No Hx Substance Use: Yes - Past Surgical History Past Surgical History: No Previous - Surgical History Hx Amputation: No Hx Appendectomy: No Hx Cardiac Catheterization: No Hx Cholecystectomy: No Hx Coronary Stent: No Hx Gastric Bypass Surgery: No Hx Hysterectomy: No Hx Joint Replacement: No Hx Kidney Transplant: No Hx Liver Transplant: No Hx Mastectomy: No Hx Musculoskeletal Surgery: No Hx Open Heart Surgery: No Hx Orthopedic Surgery: No Hx Splenectomy: No Hx Valve Replacement: No - Anesthesia Hx Anesthesia: No Hx Anesthesia Reactions: No Hx Malignant Hyperthermia: No - Suicidal Assessment Feels Threatened In Home Enviroment: No Family/Social History - Physician Review Nursing Documentation Reviewed: Yes Family/Social History: Unknown Family HX Smoking Status: Smoker Currrent Status Unknown Hx Alcohol Use: Yes Frequency of alcohol use: Daily Amount per day: 24 Hx Substance Use: Yes Allergies/Home Meds Allergies/Adverse Reactions: Allergies No Known Allergies Allergy (Verified 11/06/17 00:34) Review of Systems - Physician Review All systems were reviewed & negative as marked: Yes - Review of Systems Constitutional: Normal. absent: Fevers Eyes: Normal ENT: Normal Respiratory: Normal. absent: SOB, Cough Cardiovascular: Normal. absent: Chest Pain Gastrointestinal: Abdominal Pain. absent: Vomiting Genitourinary Male: Normal. absent: Dysuria, Frequency, Hematuria, Urinary Output Changes Musculoskeletal: Normal. absent: Back Pain, Neck Pain Skin: Normal. absent: Rash Neurological: Normal. absent: Headache, Dizziness Endocrine: Normal Hemo/Lymphatic: Normal Psychiatric: Normal Physical Exam Vital Signs Reviewed: Yes Vital Signs Temp Pulse Resp BP Pulse Ox 11/06/17 00:34 98.2 F 62 18 122/66 96 Temperature: Afebrile Blood Pressure: Normal Pulse: Regular Respiratory Rate: Normal Appearance: Positive for: Well-Appearing, Non-Toxic, Comfortable Pain Distress: None Mental Status: Positive for: Alert and Oriented X 3 - Systems Exam Head: Present: Atraumatic, Normocephalic Pupils: Present: PERRL Extroacular Muscles: Present: EOMI Conjunctiva: Present: Normal Mouth: Present: Moist Mucous Membranes Neck: Present: Normal Range of Motion Respiratory/Chest: Present: Clear to Auscultation, Good Air Exchange. No: Respiratory Distress, Accessory Muscle Use Cardiovascular: Present: Regular Rate and Rhythm, Normal S1, S2. No: Murmurs Abdomen: No: Tenderness, Distention, Peritoneal Signs Back: Present: Normal Inspection Upper Extremity: Present: Normal Inspection. No: Cyanosis, Edema Lower Extremity: Present: Normal Inspection. No: Edema Neurological: Present: GCS=15, CN II-XII Intact, Speech Normal Skin: Present: Warm, Dry, Normal Color. No: Rashes Psychiatric: Present: Alert, Oriented x 3, Normal Insight, Normal Concentration Medical Decision Making ED Course and Treatment: 11/06/17 00:46 Impression: 42 year old male complaining of chronic abdominal discomfort tonight after drinking alcohol. Plan: -- Labs, lipase, alcohol level -- IV fluids -- Toradol -- Reassess and disposition Prior Visits: Notes and results from previous visits were reviewed. Progress Notes: 11/06/17 06:00 On re-evaluation, patient is well-appearing, in no acute distress, ambulating with steady gait. Clinically sober. Patient is stable for discharge. Patient was instructed to follow up with physician or return if symptoms worsen or new concerning symptoms arise. - Lab Interpretations Lab Results: 11/06/17 01:00 11/06/17 01:00 Lab Results 11/06/17 01:00: WBC 4.5, RBC 3.66, Hgb 11.2 L, Hct 34.0 L, MCV 92.9 D, MCH 30.6 , MCHC 32.9, RDW 18.0 H, Plt Count 144, MPV 9.9 11/06/17 01:00: Alcohol, Quantitative 238 H 11/06/17 01:00: Sodium 141, Potassium 3.0 L, Chloride 96 L, Carbon Dioxide 36 H , Anion Gap 12, BUN 3 L, Creatinine 0.7 L, Est GFR ( Amer) > 60, Est GFR (Non-Af Amer) > 60, Random Glucose 106, Calcium 8.1 L, Total Bilirubin 1.7 H, AST 305 H D, ALT 102 H, Alkaline Phosphatase 231 H D, Total Protein 6.6, Albumin 3.1, Globulin 3.5, Albumin/Globulin Ratio 0.9 L, Lipase 13 L I have reviewed the lab results: Yes - Medication Orders Current Medication Orders: Discontinued Medications Famotidine (Pepcid) 20 mg IVP STAT STA Stop: 11/06/17 00:50 Last Admin: 11/06/17 01:09 Dose: 20 mg IVP Administration Document 11/06/17 01:09 AD (Rec: 11/06/17 01:09 AD [id number]) Charges for Administration # of IVP Administrations 1 Sodium Chloride (Sodium Chloride 0.9%) 1,000 mls @ 999 mls/hr IV .Q1H1M STA Stop: 11/06/17 01:48 Last Admin: 11/06/17 01:05 Dose: 999 mls/hr eMAR Start Stop Document 11/06/17 01:05 AD (Rec: 11/06/17 01:09 AD [id number]) Intravenous Solution Start Date 11/06/17 Start Time 01:09 Ketorolac Tromethamine (Toradol) 30 mg IVP ONCE ONE Stop: 11/06/17 00:49 Last Admin: 11/06/17 01:09 Dose: 30 mg MAR Pain Assessment Document 11/06/17 01:09 AD (Rec: 11/06/17 01:12 AD [id number]) Pain Reassessment Is this a pain reassessment? No Presence of Pain Presence of Pain Yes Pain Scale Used Pain Scale Used Numeric Location Pain Location Body Site Abdomen Description Intensity of Pain at present 8 Pain Behavior Facial Grimacing IVP Administration Document 11/06/17 01:09 AD (Rec: 11/06/17 01:12 AD [id number]) Charges for Administration # of IVP Administrations 1 Potassium Chloride (K-Dur 20 Meq Er Tab) 40 meq PO STAT STA Stop: 11/06/17 02:16 Last Admin: 11/06/17 02:40 Dose: 40 meq - Scribe Statement The provider has reviewed the documentation as recorded by the Becca Zhou Provider Scribe Attestation: All medical record entries made by the Scribe were at my direction and personally dictated by me. I have reviewed the chart and agree that the record accurately reflects my personal performance of the history, physical exam, medical decision making, and the department course for this patient. I have also personally directed, reviewed, and agree with the discharge instructions and disposition. Disposition/Present on Arrival - Present on Arrival Any Indicators Present on Arrival: No History of DVT/PE: No History of Uncontrolled Diabetes: No Urinary Catheter: No History of Decub. Ulcer: No History Surgical Site Infection Following: None - Disposition Have Diagnosis and Disposition been Completed?: Yes Diagnosis: Alcohol abuse, Gastritis Disposition: HOME/ ROUTINE Disposition Time: 06:01 Patient Plan: Discharge Patient Problems: Current Active Problems Problem Status Onset Alcohol abuse Acute Gastritis Acute Condition: GOOD Discharge Instructions (ExitCare): Gastritis (DC), Alcohol Abuse and Alcoholism (DC) Additional Instructions: Stop drinking alcohol/medication as prescribed/follow up with your doctor this week Prescriptions: Famotidine [Pepcid] 20 mg PO BID PRN #24 tab PRN Reason: Dyspepsia Forms: [employer] (Dominican)
[2017-11-06] MEDS ORDERED: Sodium Chloride 0.9% 1,000 ML IV STA (00:48)
[2017-11-06 01:24] LABS: HEMOGLOBIN 11.2 g/dL (14.0-18.0); MEAN CORPUSCULAR HEMOGLOBIN 30.6 pg (25.0-35.0); MEAN CORPUSCULAR HGB CONC 32.9 g/dl (31.0-37.0); MEAN PLATELET VOLUME 9.9 fl (7.0-11.0); RBC 3.66 10^6/uL (3.5-6.1); WHITE BLOOD COUNT 4.5 10^3/ul (4.5-11.0)
[2017-11-06 01:31] LABS: MEAN CELL VOLUME 92.9 fl (80.0-105.0)
[2017-11-06 01:48] LABS: ALB/GLOB RATIO 0.9 (1.1-1.8); ALBUMIN 3.1 g/dL (3.0-4.8); ALT/SGPT 102 U/L (7-56); AST/SGOT 305 U/L (17-59); BLOOD UREA NITROGEN 3 mg/dL (7-21); CALCIUM 8.1 mg/dL (8.4-10.5); GFR AFRICAN-AMERICAN > 60; GFR NON-AFRICAN AMERICAN > 60; LIPASE 13 U/L (23-300)
[2017-11-06] MEDS ORDERED: Potassium Chloride 20 mEq ER Tab PO STA (02:15)
[2017-11-06 06:14] VITALS: BP 120/68; PULSE 60; TEMP 97.9
== END 2017-11-06 06:15 | disposition home or self-care (01) ==
LOC: ED 00:07
DX: K29.70 Gastritis, unspecified, without bleeding (principal); F10.10 Alcohol abuse, uncomplicated; I10 Essential (primary) hypertension
CPT/HCPCS: 80053; 83690; 85027; 96374; 96375; 99284; G0480; J1885; J7040

== ENCOUNTER 2017-11-15 22:37 | Emergency (ER) | payer SELFPAY ==
[2017-11-15 22:37] VITALS: BMI 21.5
--- NOTE | 2017-11-16 00:33 | ED PDOC ---
Arrival/HPI - General Chief Complaint: Back Pain Time Seen by Provider: 11/15/17 22:46 Historian: Patient - History of Present Illness Narrative History of Present Illness (Text): 11/16/17 00:33 42 year old male, whose past medical history includes alcohol abuse, hypertension, gastritis and pancreatitis, presents to the emergency department complaining of redness to the eyes and some discomfort to his back/abdomen area. Patient states he thinks it's his kidney. He has a history of chronic abdominal pain/gastritis. Patient is homeless.Admits to alcohol use. Patient denies any fever, chills, visual disturbance, chest pain, shortness of breath, nausea, vomiting, diarrhea, urinary symptoms, neck pain, headache, dizziness, or any other complaints. Symptom Onset: Gradual Symptom Course: Unchanged Activities at Onset: Light Context: Other (Homeless) Past Medical History - Provider Review Nursing Documentation Reviewed: Yes - Past History Past History: No Previous - Infectious Disease Hx of Infectious Diseases: None - Tetanus Immunization Tetanus Immunization: Unknown - Past Medical History Past Medical History: No Previous - Cardiac Hx Cardiac Disorders: Yes Hx Hypertension: Yes - Pulmonary Hx Respiratory Disorders: No - Neurological Hx Neurological Disorder: No - HEENT Hx HEENT Disorder: No - Renal Hx Renal Disorder: No - Endocrine/Metabolic Hx Endocrine Disorders: No - Hematological/Oncological Hx Blood Disorders: No - Integumentary Hx Dermatological Disorder: No - Musculoskeletal/Rheumatological Hx Musculoskeletal Disorders: No - Gastrointestinal Hx Gastrointestinal Disorders: Yes Hx Gastroesophageal Reflux: Yes Hx Pancreatitis: Yes - Genitourinary/Gynecological Hx Genitourinary Disorders: No Hx Sexually Transmitted Diseases: No - Psychiatric Hx Psychophysiologic Disorder: No Hx Substance Use: Yes - Past Surgical History Past Surgical History: No Previous - Surgical History Hx Amputation: No Hx Appendectomy: No Hx Cardiac Catheterization: No Hx Cholecystectomy: No Hx Coronary Stent: No Hx Gastric Bypass Surgery: No Hx Hysterectomy: No Hx Joint Replacement: No Hx Kidney Transplant: No Hx Liver Transplant: No Hx Mastectomy: No Hx Musculoskeletal Surgery: No Hx Open Heart Surgery: No Hx Orthopedic Surgery: No Hx Splenectomy: No Hx Valve Replacement: No - Anesthesia Hx Anesthesia: No Hx Anesthesia Reactions: No Hx Malignant Hyperthermia: No - Suicidal Assessment Feels Threatened In Home Enviroment: No Family/Social History - Physician Review Nursing Documentation Reviewed: Yes Family/Social History: No Known Family HX Smoking Status: Smoker Currrent Status Unknown Hx Alcohol Use: Yes Amount per day: 24 Hx Substance Use: Yes Allergies/Home Meds Allergies/Adverse Reactions: Allergies No Known Allergies Allergy (Verified 11/06/17 00:34) Review of Systems - Physician Review All systems were reviewed & negative as marked: Yes - Review of Systems Constitutional: absent: Fevers, Other (Chills) Eyes: Other (Red eyes). absent: Vision Changes, Photophobia Respiratory: absent: SOB Cardiovascular: absent: Chest Pain Gastrointestinal: Abdominal Pain (/back area discomfort). absent: Diarrhea, Nausea, Vomiting Genitourinary Male: absent: Dysuria, Frequency, Hematuria Musculoskeletal: absent: Neck Pain Neurological: absent: Headache, Dizziness Physical Exam Vital Signs Reviewed: Yes Vital Signs Temp Pulse Resp BP Pulse Ox 11/16/17 06:27 98.9 F 77 16 128/66 100 11/16/17 05:30 88 19 131/80 100 11/16/17 03:30 98 F 87 16 131/75 97 Appearance: Positive for: Well-Appearing, Non-Toxic, Comfortable Pain Distress: None Mental Status: Positive for: Alert and Oriented X 3 - Systems Exam Head: Present: Atraumatic, Normocephalic Pupils: Present: PERRL Extroacular Muscles: Present: EOMI Conjunctiva: Present: Other (conjunctival erythema) Mouth: Present: Moist Mucous Membranes Neck: Present: Normal Range of Motion Respiratory/Chest: Present: Clear to Auscultation, Good Air Exchange. No: Respiratory Distress, Accessory Muscle Use Cardiovascular: Present: Regular Rate and Rhythm, Normal S1, S2. No: Murmurs Abdomen: No: Tenderness, Distention, Peritoneal Signs Back: Present: Normal Inspection. No: CVA Tenderness, Paraspinal Tenderness, Other ((-) Costovertebral angle tenderness (-) dorsalspinal tenderness) Upper Extremity: Present: Normal Inspection, Normal ROM. No: Cyanosis, Edema Lower Extremity: Present: Normal Inspection, Normal ROM. No: Edema Neurological: Present: GCS=15, CN II-XII Intact, Speech Normal. No: Other ((-) Focal Neurological deificts ) Skin: Present: Warm, Dry, Normal Color. No: Rashes Psychiatric: Present: Alert, Oriented x 3, Normal Insight, Normal Concentration Medical Decision Making ED Course and Treatment: 11/16/17 00:33 Impression: 42 year old male presents complaining of redness to the eyes and some discomfort to the back/abdomen area. Pt has hx of chronic abdominal pain. Plan: -- Labs -- Urinalysis -- Reassess and disposition Prior Visits: Notes and results from previous visits were reviewed. Patient was last seen in the emergency department on 11/06/17 presents complaining of abdominal discomfort. Admits to drinking today. Patient was discharged. Progress Notes: - Lab Interpretations Lab Results: 11/16/17 01:45 11/16/17 01:45 Lab Results 11/16/17 02:45: Urine Color Yellow, Urine Appearance Clear, Urine pH 6.5, Ur Specific [place] <= 1.005, Urine Protein Negative, Urine Glucose (UA) Negative, Urine Ketones Negative, Urine Blood Negative, Urine Nitrate Negative, Urine Bilirubin Negative, Urine Urobilinogen 0.2, Ur Leukocyte Esterase Negative 11/16/17 01:45: Alcohol, Quantitative 203 H 11/16/17 01:45: WBC 3.3 L D, RBC 3.52, Hgb 10.8 L, Hct 32.5 L, MCV 92.3, MCH 30.7, MCHC 33.2, RDW 18.6 H, Plt Count 116 L, MPV 10.6 11/16/17 01:45: Sodium 145, Potassium 2.8 L*, Chloride 100, Carbon Dioxide 33, Anion Gap 15, BUN 4 L, Creatinine 0.6 L, Est GFR ( Amer) > 60, Est GFR ( Non-Af Amer) > 60, Random Glucose 104, Calcium 8.2 L, Total Bilirubin 1.2, AST 283 H, ALT 108 H, Alkaline Phosphatase 193 H, Total Protein 6.3, Albumin 3.0, Globulin 3.3, Albumin/Globulin Ratio 0.9 L, Lipase 11 L I have reviewed the lab results: Yes - Medication Orders Current Medication Orders: Discontinued Medications Potassium Chloride (Potassium Chloride 20 Meq/100 Ml) 100 mls @ 50 mls/hr IV ONCE ONE Stop: 11/16/17 06:33 Last Admin: 11/16/17 05:00 Dose: 50 mls/hr eMAR Start Stop Document 11/16/17 05:00 JOJose (Rec: 11/16/17 05:00 JOL [id number]) Intravenous Solution Start Date 11/16/17 Start Time 05:00 End Date 11/16/17 End time 07:00 Total Infusion Time 120 Potassium Chloride (K-Dur 20 Meq Er Tab) 40 meq PO STAT STA Stop: 11/16/17 03:57 Last Admin: 11/16/17 05:00 Dose: 40 meq Tobramycin Sulfate (Tobrex 0.3% Ophth Soln) 2 drop OU STAT STA Stop: 11/16/17 04:36 Last Admin: 11/16/17 06:38 Dose: 2 drop - Scribe Statement The provider has reviewed the documentation as recorded by the Becca Molina Provider Scribe Attestation: All medical record entries made by the Becca were at my direction and personally dictated by me. I have reviewed the chart and agree that the record accurately reflects my personal performance of the history, physical exam, medical decision making, and the department course for this patient. I have also personally directed, reviewed, and agree with the discharge instructions and disposition. Disposition/Present on Arrival - Present on Arrival Any Indicators Present on Arrival: No History of DVT/PE: No History of Uncontrolled Diabetes: No Urinary Catheter: No History of Decub. Ulcer: No History Surgical Site Infection Following: None - Disposition Have Diagnosis and Disposition been Completed?: Yes Diagnosis: Alcohol abuse, Hypokalemia, Conjunctivitis Disposition: HOME/ ROUTINE Disposition Time: 06:31 Patient Plan: Discharge Condition: GOOD Discharge Instructions (ExitCare): Hypokalemia (DC), Conjunctivitis ([place]) ( DC), Alcohol Abuse and Alcoholism (DC) Additional Instructions: Use meds as prescribed/eat potassium rich foods i.e. potatoes/bananas/orange juice/leafy greens ecc.)dont drink alcohol/follow up with your doctor this week Prescriptions: Tobramycin 0.3% [Tobrex 0.3% Ophth Oint] 3.5 gm OU Q6 #1 tube Forms: [employer] (Yoruba)
[2017-11-16 02:13] LABS: HEMOGLOBIN 10.8 g/dL (14.0-18.0); MEAN CELL VOLUME 92.3 fl (80.0-105.0); MEAN CORPUSCULAR HEMOGLOBIN 30.7 pg (25.0-35.0); MEAN CORPUSCULAR HGB CONC 33.2 g/dl (31.0-37.0); MEAN PLATELET VOLUME 10.6 fl (7.0-11.0); RBC 3.52 10^6/uL (3.5-6.1); RED CELL DISTRIBUTION WIDTH 18.6 % (11.5-14.5); WHITE BLOOD COUNT 3.3 10^3/ul (4.5-11.0)
[2017-11-16 03:08] LABS: PH,URINE 6.5 (4.7-8.0); URINE BILIRUBIN NEGATIVE (NEGATIVE); URINE BLOOD NEGATIVE (NEGATIVE); URINE GLUCOSE (UA) NEGATIVE (NEGATIVE); URINE LEUKOCYTE ESTERASE NEGATIVE Leu/uL (NEGATIVE); URINE PROTEIN NEGATIVE mg/dL (<30 mg/dL); URINE UROBILINOGEN 0.2 E.U./dL (<1 E.U./dL)
[2017-11-16 03:13] LABS: URINE APPEARANCE CLEAR (CLEAR); URINE COLOR YELLOW (YELLOW)
[2017-11-16 03:55] LABS: ALB/GLOB RATIO 0.9 (1.1-1.8); ALT/SGPT 108 U/L (7-56); AST/SGOT 283 U/L (17-59); BLOOD UREA NITROGEN 4 mg/dL (7-21); CALCIUM 8.2 mg/dL (8.4-10.5); GFR AFRICAN-AMERICAN > 60; GFR NON-AFRICAN AMERICAN > 60; LIPASE 11 U/L (23-300)
[2017-11-16] MEDS ORDERED: Potassium Chloride 20 mEq ER Tab PO STA (03:56)
[2017-11-16] MEDS ORDERED: Potassium Chloride 20 mEq 100 ML IV ONE (04:34)
[2017-11-16] MEDS ORDERED: Tobramycin 0.3% OPHT SOLN OU STA (04:35)
[2017-11-16 06:27] VITALS: O2SAT 100
[2017-11-16 06:30] VITALS: BP 128/66; PULSE 77; RESP 16; TEMP 98.9
== END 2017-11-16 06:44 | disposition home or self-care (01) ==
LOC: ED 22:37
DX: E87.6 Hypokalemia (principal); F10.10 Alcohol abuse, uncomplicated; H10.9 Unspecified conjunctivitis; I10 Essential (primary) hypertension; Z59.0 Homelessness
CPT/HCPCS: 80053; 81003; 83690; 85027; 96360; 96361; 99283; G0480; J3480

== ENCOUNTER 2017-12-04 01:19 | Emergency (ER) | payer SELFPAY ==
[2017-12-04 01:19] VITALS: BMI 21.5
--- NOTE | 2017-12-04 02:15 | ED PDOC ---
Arrival/HPI - General Chief Complaint: Abdominal Pain Time Seen by Provider: 12/04/17 02:09 Historian: Patient - History of Present Illness Narrative History of Present Illness (Text): 12/04/17 02:12 Felix Glasgow is a 42 year old male, whose past medical history includes alcohol abuse, hypertension, gastritis and pancreatitis, presents to the emergency department complaining of abdominal discomfort. Patient states symptoms are consistent with his chronic gastritis and admits to drinking alcohol today. Patient denies any vomiting, diarrhea, fever, chills or any other complaints at this time. Time/Duration: Other (tonight) Symptom Onset: Gradual Symptom Course: Unchanged Activities at Onset: Light Past Medical History - Provider Review Nursing Documentation Reviewed: Yes - Past History Past History: No Previous - Infectious Disease Hx of Infectious Diseases: None - Tetanus Immunization Tetanus Immunization: Unknown - Past Medical History Past Medical History: No Previous - Cardiac Hx Cardiac Disorders: Yes Hx Hypertension: Yes - Pulmonary Hx Respiratory Disorders: No - Neurological Hx Neurological Disorder: No - HEENT Hx HEENT Disorder: No - Renal Hx Renal Disorder: No - Endocrine/Metabolic Hx Endocrine Disorders: No - Hematological/Oncological Hx Blood Disorders: No - Integumentary Hx Dermatological Disorder: No - Musculoskeletal/Rheumatological Hx Musculoskeletal Disorders: No - Gastrointestinal Hx Gastrointestinal Disorders: Yes Hx Gastroesophageal Reflux: Yes Hx Pancreatitis: Yes - Genitourinary/Gynecological Hx Genitourinary Disorders: No Hx Sexually Transmitted Diseases: No - Psychiatric Hx Psychophysiologic Disorder: No Hx Substance Use: No Other/Comment: alcohol abuse - Past Surgical History Past Surgical History: No Previous - Surgical History Hx Amputation: No Hx Appendectomy: No Hx Cardiac Catheterization: No Hx Cholecystectomy: No Hx Coronary Stent: No Hx Gastric Bypass Surgery: No Hx Hysterectomy: No Hx Joint Replacement: No Hx Kidney Transplant: No Hx Liver Transplant: No Hx Mastectomy: No Hx Musculoskeletal Surgery: No Hx Open Heart Surgery: No Hx Orthopedic Surgery: No Hx Splenectomy: No Hx Valve Replacement: No - Anesthesia Hx Anesthesia: No Hx Anesthesia Reactions: No Hx Malignant Hyperthermia: No - Suicidal Assessment Feels Threatened In Home Enviroment: No Family/Social History - Physician Review Nursing Documentation Reviewed: Yes Family/Social History: Unknown Family HX Smoking Status: Light Smoker < 10 Cigarettes Daily Hx Alcohol Use: Yes Frequency of alcohol use: Socially Amount per day: 24 Hx Substance Use: No Allergies/Home Meds Allergies/Adverse Reactions: Allergies No Known Allergies Allergy (Verified 12/04/17 02:01) Home Medications: Home Meds Medication Instructions Recorded Confirmed No Known Home Med 12/04/17 12/04/17 Review of Systems - Physician Review All systems were reviewed & negative as marked: Yes - Review of Systems Constitutional: Normal. absent: Fevers Eyes: Normal ENT: Normal Respiratory: Normal. absent: SOB, Cough Cardiovascular: Normal. absent: Chest Pain Gastrointestinal: Abdominal Pain. absent: Diarrhea Genitourinary Male: Normal. absent: Dysuria, Frequency, Hematuria, Urinary Output Changes Musculoskeletal: Normal. absent: Back Pain, Neck Pain Skin: Normal. absent: Rash Neurological: Normal. absent: Headache, Dizziness Endocrine: Normal Hemo/Lymphatic: Normal Psychiatric: Normal Physical Exam Vital Signs Reviewed: Yes Vital Signs Temp Pulse Resp BP Pulse Ox 12/04/17 05:45 60 17 151/90 H 98 12/04/17 02:04 97.8 F 50 L 18 160/106 H 100 Temperature: Afebrile Blood Pressure: Normal Pulse: Regular Respiratory Rate: Normal Appearance: Positive for: Well-Appearing, Non-Toxic, Comfortable Pain Distress: None Mental Status: Positive for: Alert and Oriented X 3 - Systems Exam Head: Present: Atraumatic, Normocephalic Pupils: Present: PERRL Extroacular Muscles: Present: EOMI Conjunctiva: Present: Normal Mouth: Present: Moist Mucous Membranes Neck: Present: Normal Range of Motion Respiratory/Chest: Present: Clear to Auscultation, Good Air Exchange. No: Respiratory Distress, Accessory Muscle Use Cardiovascular: Present: Regular Rate and Rhythm, Normal S1, S2. No: Murmurs Abdomen: No: Tenderness, Distention, Peritoneal Signs Back: Present: Normal Inspection Upper Extremity: Present: Normal Inspection. No: Cyanosis, Edema Lower Extremity: Present: Normal Inspection. No: Edema Neurological: Present: GCS=15, CN II-XII Intact, Speech Normal Skin: Present: Warm, Dry, Normal Color. No: Rashes Psychiatric: Present: Alert, Oriented x 3, Normal Insight, Normal Concentration Medical Decision Making ED Course and Treatment: 12/04/17 02:12 Impression: 42 year old male complaining of abdominal discomfort tonight. Differential Diagnosis included but are not limited to: gastritis Plan: -- Labs, lipase, alcohol level -- IV fluids -- Protonix -- Reassess and disposition Prior Visits: Notes and results from previous visits were reviewed. On 11/16/2017, pt was seen in the emergency department for bilateral eye redness and abdomen/back discomfort. Progress Notes: 12/04/17 06:01 On reevaluation the patient feels better and is in no acute distress. I have discussed the results and plan with the patient, who expresses understanding. Patient given the opportunity to ask question, all questions were answered and there is agreement with the plan to discharge the patient home. Patient is stable for discharge. Patient was instructed to follow up with physician/clinic in 1-2 days or return if symptoms persist/worsen or new concerning symptoms arise. - Lab Interpretations Lab Results: 12/04/17 02:34 12/04/17 02:34 Lab Results 12/04/17 02:34: Alcohol, Quantitative 97 H 12/04/17 02:34: WBC 5.8 D, RBC 3.57, Hgb 11.1 L, Hct 33.7 L, MCV 94.4, MCH 31.1 , MCHC 32.9, RDW 18.0 H, Plt Count 144, MPV 10.8 12/04/17 02:34: Sodium 143, Potassium 3.8, Chloride 101, Carbon Dioxide 32, Anion Gap 14, BUN 4 L, Creatinine 0.7 L, Est GFR ( Amer) > 60, Est GFR ( Non-Af Amer) > 60, Random Glucose 100, Calcium 8.5, Total Bilirubin 1.0, AST 119 H D, ALT 76 H, Alkaline Phosphatase 162 H, Total Protein 6.6, Albumin 3.3, Globulin 3.4, Albumin/Globulin Ratio 1.0 L, Lipase < 10 L I have reviewed the lab results: Yes - Medication Orders Current Medication Orders: Discontinued Medications Sodium Chloride (Sodium Chloride 0.9%) 1,000 mls @ 999 mls/hr IV .Q1H1M STA Stop: 12/04/17 03:16 Last Admin: 12/04/17 02:37 Dose: 999 mls/hr eMAR Start Stop Document 12/04/17 02:37 IT (Rec: 12/04/17 02:37 IT [id number]) Intravenous Solution Start Date 12/04/17 Start Time 02:37 End Date 12/04/17 Ondansetron HCl (Zofran Inj) 4 mg IVP ONCE ONE Stop: 12/04/17 03:06 Pantoprazole Sodium (Protonix Ec Tab) 40 mg PO STAT STA Stop: 12/04/17 02:17 Last Admin: 12/04/17 02:37 Dose: 40 mg - Scribe Statement The provider has reviewed the documentation as recorded by the Becca Zhou Provider Scribe Attestation: All medical record entries made by the Jeanetteibcassandra were at my direction and personally dictated by me. I have reviewed the chart and agree that the record accurately reflects my personal performance of the history, physical exam, medical decision making, and the department course for this patient. I have also personally directed, reviewed, and agree with the discharge instructions and disposition. Disposition/Present on Arrival - Present on Arrival Any Indicators Present on Arrival: No History of DVT/PE: No History of Uncontrolled Diabetes: No Urinary Catheter: No History of Decub. Ulcer: No History Surgical Site Infection Following: None - Disposition Have Diagnosis and Disposition been Completed?: Yes Diagnosis: Alcoholic gastritis Disposition: HOME/ ROUTINE Disposition Time: 06:07 Patient Plan: Discharge Condition: GOOD Discharge Instructions (ExitCare): Gastritis (DC) Additional Instructions: Stop drinking alcohol/avoid caffeinated beverages/spicy foods/Pepcid as directed /follow up with your doctor this week Forms: [email or web address] (Kyrgyz)
[2017-12-04] MEDS ORDERED: Sodium Chloride 0.9% 1,000 ML IV STA (02:16)
[2017-12-04] MEDS ORDERED: Pantoprazole 40 mg EC Tab PO STA (02:16)
[2017-12-04 02:49] LABS: HEMOGLOBIN 11.1 g/dL (14.0-18.0); MEAN CELL VOLUME 94.4 fl (80.0-105.0); MEAN CORPUSCULAR HEMOGLOBIN 31.1 pg (25.0-35.0); MEAN CORPUSCULAR HGB CONC 32.9 g/dl (31.0-37.0); MEAN PLATELET VOLUME 10.8 fl (7.0-11.0); RBC 3.57 10^6/uL (3.5-6.1)
[2017-12-04 02:53] LABS: WHITE BLOOD COUNT 5.8 10^3/ul (4.5-11.0)
[2017-12-04 03:10] LABS: ALBUMIN 3.3 g/dL (3.0-4.8); ALT/SGPT 76 U/L (7-56); AST/SGOT 119 U/L (17-59); BLOOD UREA NITROGEN 4 mg/dL (7-21); CALCIUM 8.5 mg/dL (8.4-10.5); GFR AFRICAN-AMERICAN > 60; GFR NON-AFRICAN AMERICAN > 60; LIPASE < 10 U/L (23-300)
[2017-12-04 05:54] VITALS: BP 151/90; PULSE 60; RESP 17
[2017-12-04 06:12] VITALS: TEMP 98.2; O2SAT 100
== END 2017-12-04 06:13 | disposition home or self-care (01) ==
LOC: ED 01:19
DX: K29.20 Alcoholic gastritis without bleeding (principal); I10 Essential (primary) hypertension; F17.210 Nicotine dependence, cigarettes, uncomplicated
CPT/HCPCS: 80053; 83690; 85027; 99283; G0480; J7040

== ENCOUNTER 2017-12-09 02:01 | Emergency (ER) | payer SELFPAY ==
[2017-12-09 02:01] VITALS: BMI 21.5
[2017-12-09 02:27] VITALS: RESP 17; O2SAT 100
--- NOTE | 2017-12-09 02:52 | ED PDOC ---
Arrival/HPI - General Chief Complaint: Abdominal Pain Time Seen by Provider: 12/09/17 02:33 Historian: Patient - History of Present Illness Narrative History of Present Illness (Text): 12/09/17 02:30 Felix Glasgow is a 42 year old male, whose past medical history includes alcohol abuse, hypertension, gastritis and pancreatitis, presents to the emergency department complaining of LLQ abdominal pain for the past few weeks. Patient denies any fever, chills, chest pain, shortness of breath, nausea, vomiting, diarrhea, urinary symptoms, back pain, neck pain, headache, dizziness , or any other complaints. Time/Duration: > week Symptom Onset: Gradual Symptom Course: Unchanged Activities at Onset: Light Past Medical History - Provider Review Nursing Documentation Reviewed: Yes - Past History Past History: No Previous - Infectious Disease Hx of Infectious Diseases: None - Tetanus Immunization Tetanus Immunization: Unknown - Past Medical History Past Medical History: No Previous - Cardiac Hx Cardiac Disorders: Yes Hx Hypertension: Yes - Pulmonary Hx Respiratory Disorders: No - Neurological Hx Neurological Disorder: No - HEENT Hx HEENT Disorder: No - Renal Hx Renal Disorder: No - Endocrine/Metabolic Hx Endocrine Disorders: No - Hematological/Oncological Hx Blood Disorders: No - Integumentary Hx Dermatological Disorder: No - Musculoskeletal/Rheumatological Hx Musculoskeletal Disorders: No - Gastrointestinal Hx Gastrointestinal Disorders: Yes Hx Gastroesophageal Reflux: Yes Hx Pancreatitis: Yes - Genitourinary/Gynecological Hx Genitourinary Disorders: No Hx Sexually Transmitted Diseases: No - Psychiatric Hx Psychophysiologic Disorder: No Hx Substance Use: No Other/Comment: alcohol abuse - Past Surgical History Past Surgical History: No Previous - Surgical History Hx Amputation: No Hx Appendectomy: No Hx Cardiac Catheterization: No Hx Cholecystectomy: No Hx Coronary Stent: No Hx Gastric Bypass Surgery: No Hx Hysterectomy: No Hx Joint Replacement: No Hx Kidney Transplant: No Hx Liver Transplant: No Hx Mastectomy: No Hx Musculoskeletal Surgery: No Hx Open Heart Surgery: No Hx Orthopedic Surgery: No Hx Splenectomy: No Hx Valve Replacement: No - Anesthesia Hx Anesthesia: No Hx Anesthesia Reactions: No Hx Malignant Hyperthermia: No - Suicidal Assessment Feels Threatened In Home Enviroment: No Family/Social History - Physician Review Nursing Documentation Reviewed: Yes Family/Social History: Unknown Family HX Smoking Status: Light Smoker < 10 Cigarettes Daily Hx Alcohol Use: Yes Amount per day: 24 Hx Substance Use: No Allergies/Home Meds Allergies/Adverse Reactions: Allergies No Known Allergies Allergy (Verified 12/04/17 02:01) Home Medications: Home Meds Medication Instructions Recorded Confirmed No Known Home Med 12/04/17 12/04/17 Review of Systems - Physician Review All systems were reviewed & negative as marked: Yes - Review of Systems Constitutional: Normal. absent: Fevers Eyes: Normal ENT: Normal Respiratory: Normal. absent: SOB, Cough Cardiovascular: Normal. absent: Chest Pain Gastrointestinal: Abdominal Pain. absent: Diarrhea, Vomiting Genitourinary Male: Normal. absent: Dysuria, Frequency, Hematuria, Urinary Output Changes Musculoskeletal: Normal. absent: Back Pain, Neck Pain Skin: Normal. absent: Rash Neurological: Normal. absent: Headache, Dizziness Endocrine: Normal Hemo/Lymphatic: Normal Psychiatric: Normal Physical Exam Vital Signs Reviewed: Yes Vital Signs Temp Pulse Resp BP Pulse Ox 12/09/17 06:36 98.0 F 72 17 138/78 100 12/09/17 03:00 82 17 135/78 100 12/09/17 02:26 98.9 F 70 17 144/87 100 Temperature: Afebrile Blood Pressure: Normal Pulse: Regular Respiratory Rate: Normal Appearance: Positive for: Well-Appearing, Non-Toxic, Comfortable Pain Distress: None Mental Status: Positive for: Alert and Oriented X 3 - Systems Exam Head: Present: Atraumatic, Normocephalic Pupils: Present: PERRL Extroacular Muscles: Present: EOMI Conjunctiva: Present: Normal Mouth: Present: Moist Mucous Membranes Neck: Present: Normal Range of Motion Respiratory/Chest: Present: Clear to Auscultation, Good Air Exchange. No: Respiratory Distress, Accessory Muscle Use Cardiovascular: Present: Regular Rate and Rhythm, Normal S1, S2. No: Murmurs Abdomen: No: Tenderness, Distention, Peritoneal Signs Back: Present: Normal Inspection Upper Extremity: Present: Normal Inspection. No: Cyanosis, Edema Lower Extremity: Present: Normal Inspection. No: Edema Neurological: Present: GCS=15, CN II-XII Intact, Speech Normal Skin: Present: Warm, Dry, Normal Color. No: Rashes Psychiatric: Present: Alert, Oriented x 3, Normal Insight, Normal Concentration Medical Decision Making ED Course and Treatment: 12/09/17 02:30 Impression: 42 year old male complaining of LLQ pain. Plan: -- CT Abdomen and Pelvis -- Reassess and disposition Prior Visits: Notes and results from previous visits were reviewed. Progress Notes: 12/09/17 05:35 CT Abdomen and Pelvis shows: Lung bases: Unremarkable. No mass. No consolidation. ABDOMEN: Liver: There is a diffuse decrease in hepatic parenchymal density, consistent with fatty infiltration. Gallbladder and bile ducts: Unremarkable. No calcified stones. No ductal dilation. Pancreas: There are punctate pancreatic parenchymal calcifications, consistent with chronic pancreatitis. No ductal dilation. Spleen: Unremarkable. No splenomegaly. Adrenals: Unremarkable. No mass. Kidneys and ureters: Unremarkable. No obstructing stones. No hydronephrosis. Stomach and bowel: The colon is mildly distended gas and demonstrates moderate amount of retained stool.There is no wall thickening or pericolonic stranding to suggest colitis. PELVIS: Appendix: A normal appendix is identified. Bladder: Unremarkable. No stones. Reproductive: Unremarkable as visualized ABDOMEN and PELVIS: Intraperitoneal space: Unremarkable. No free air. No significant fluid collection. Bones/joints: No acute fracture. No dislocation. Soft tissues: Unremarkable. Vasculature: Unremarkable. No abdominal aortic aneurysm. Lymph nodes: Unremarkable. No enlarged lymph nodes. IMPRESSION: No evidence of an acute intra-abdominal or pelvic abnormality. No nephrolithiasis or obstructive uropathy. Chronic pancreatitis. Moderate amount of retained stool. No acute colitis. Fatty liver. 12/09/17 06:21 On re-evaluation, patient feels better and is in no acute distress. I have discussed the results and plan with the patient, who expresses understanding. Patient in agreement with plan to be discharged home. Patient is stable for discharge. Patient was instructed to follow up with physician or return if symptoms worsen or new concerning symptoms arise. - RAD Interpretation Radiology Orders: 12/09/17 02:33 ABD & PELVIS W/O PO OR IV CONT [CT] Stat Traffic Controller Cable: Radiologist - Scribe Statement The provider has reviewed the documentation as recorded by the Becca Zhou Provider Scribe Attestation: All medical record entries made by the Scribe were at my direction and personally dictated by me. I have reviewed the chart and agree that the record accurately reflects my personal performance of the history, physical exam, medical decision making, and the department course for this patient. I have also personally directed, reviewed, and agree with the discharge instructions and disposition. Disposition/Present on Arrival - Present on Arrival Any Indicators Present on Arrival: No History of DVT/PE: No History of Uncontrolled Diabetes: No Urinary Catheter: No History of Decub. Ulcer: No History Surgical Site Infection Following: None - Disposition Have Diagnosis and Disposition been Completed?: Yes Diagnosis: Abdominal pain, Constipation Disposition: HOME/ ROUTINE Disposition Time: 06:21 Condition: GOOD Discharge Instructions (ExitCare): Constipation in Adults Forms: [facility] (Bulgarian)
--- NOTE | 2017-12-09 05:32 | CT ---
EXAM: CT Abdomen and Pelvis Without Intravenous Contrast CLINICAL HISTORY: 42 years old, male; Pain; Abdominal pain; Flank; Left lower quadrant (llq); Additional info: Llq pain TECHNIQUE: Axial computed tomography images of the abdomen and pelvis without intravenous contrast. All CT scans at this facility use one or more dose reduction techniques, viz.: automated exposure control; ma/kV adjustment per patient size (including targeted exams where dose is matched to indication; i.e. head); or iterative reconstruction technique. Coronal and sagittal reformatted images were created and reviewed. COMPARISON: CT - ABD PELVIS IV CONTRAST ONLY 2017-06-01 18:27 FINDINGS: Lung bases: Unremarkable. No mass. No consolidation. ABDOMEN: Liver: There is a diffuse decrease in hepatic parenchymal density, consistent with fatty infiltration. Gallbladder and bile ducts: Unremarkable. No calcified stones. No ductal dilation. Pancreas: There are punctate pancreatic parenchymal calcifications, consistent with chronic pancreatitis. No ductal dilation. Spleen: Unremarkable. No splenomegaly. Adrenals: Unremarkable. No mass. Kidneys and ureters: Unremarkable. No obstructing stones. No hydronephrosis. Stomach and bowel: The colon is mildly distended gas and demonstrates moderate amount of retained stool.There is no wall thickening or pericolonic stranding to suggest colitis. PELVIS: Appendix: A normal appendix is identified. Bladder: Unremarkable. No stones. Reproductive: Unremarkable as visualized. ABDOMEN and PELVIS: Intraperitoneal space: Unremarkable. No free air. No significant fluid collection. Bones/joints: No acute fracture. No dislocation. Soft tissues: Unremarkable. Vasculature: Unremarkable. No abdominal aortic aneurysm. Lymph nodes: Unremarkable. No enlarged lymph nodes. IMPRESSION: No evidence of an acute intra-abdominal or pelvic abnormality. No nephrolithiasis or obstructive uropathy. Chronic pancreatitis. Moderate amount of retained stool. No acute colitis. Fatty liver.
[2017-12-09 06:36] VITALS: BP 138/78; PULSE 72; TEMP 98
== END 2017-12-09 06:36 | disposition home or self-care (01) ==
LOC: ED 02:01
DX: K59.00 Constipation, unspecified (principal); R10.9 Unspecified abdominal pain

== ENCOUNTER 2017-12-11 22:45 | Emergency (ER) | payer SELFPAY ==
[2017-12-11 22:45] VITALS: BMI 21.5
[2017-12-11 23:28] VITALS: RESP 18
--- NOTE | 2017-12-12 00:10 | ED PDOC ---
Arrival/HPI - General Chief Complaint: Abdominal Pain Time Seen by Provider: 12/11/17 23:22 Historian: Patient - History of Present Illness Narrative History of Present Illness (Text): 12/12/17 00:07 Felix Glasgow is a 42 year old male, whose past medical history includes alcohol abuse, hypertension, gastritis and pancreatitis, presents to the emergency department complaining of a "bulge" to the left groin area today. Patient reports some associated discomfort to the area. Patient denies any vomiting, diarrhea, fever, chills or any other complaints at this time. Symptom Onset: Gradual Symptom Course: Unchanged Activities at Onset: Light Context: Home Past Medical History - Provider Review Nursing Documentation Reviewed: Yes - Past History Past History: No Previous - Infectious Disease Hx of Infectious Diseases: None - Tetanus Immunization Tetanus Immunization: Unknown - Past Medical History Past Medical History: No Previous - Cardiac Hx Cardiac Disorders: Yes Hx Hypertension: Yes - Pulmonary Hx Respiratory Disorders: No - Neurological Hx Neurological Disorder: No - HEENT Hx HEENT Disorder: No - Renal Hx Renal Disorder: No - Endocrine/Metabolic Hx Endocrine Disorders: No - Hematological/Oncological Hx Blood Disorders: No - Integumentary Hx Dermatological Disorder: No - Musculoskeletal/Rheumatological Hx Musculoskeletal Disorders: No - Gastrointestinal Hx Gastrointestinal Disorders: Yes Hx Gastroesophageal Reflux: Yes Hx Pancreatitis: Yes - Genitourinary/Gynecological Hx Genitourinary Disorders: No Hx Sexually Transmitted Diseases: No - Psychiatric Hx Psychophysiologic Disorder: No Hx Substance Use: No Other/Comment: alcohol abuse - Past Surgical History Past Surgical History: No Previous - Surgical History Hx Amputation: No Hx Appendectomy: No Hx Cardiac Catheterization: No Hx Cholecystectomy: No Hx Coronary Stent: No Hx Gastric Bypass Surgery: No Hx Hysterectomy: No Hx Joint Replacement: No Hx Kidney Transplant: No Hx Liver Transplant: No Hx Mastectomy: No Hx Musculoskeletal Surgery: No Hx Open Heart Surgery: No Hx Orthopedic Surgery: No Hx Splenectomy: No Hx Valve Replacement: No - Anesthesia Hx Anesthesia: No Hx Anesthesia Reactions: No Hx Malignant Hyperthermia: No - Suicidal Assessment Feels Threatened In Home Enviroment: No Family/Social History - Physician Review Nursing Documentation Reviewed: Yes Family/Social History: Unknown Family HX Smoking Status: Light Smoker < 10 Cigarettes Daily Hx Alcohol Use: Yes Amount per day: 24 Hx Substance Use: No Allergies/Home Meds Allergies/Adverse Reactions: Allergies No Known Allergies Allergy (Verified 12/04/17 02:01) Home Medications: Home Meds Medication Instructions Recorded Confirmed No Known Home Med 12/04/17 12/04/17 Review of Systems - Physician Review All systems were reviewed & negative as marked: Yes - Review of Systems Constitutional: Normal. absent: Fevers Eyes: Normal ENT: Normal Respiratory: Normal. absent: SOB, Cough Cardiovascular: Normal. absent: Chest Pain Gastrointestinal: Abdominal Pain. absent: Diarrhea, Nausea, Vomiting Genitourinary Male: Normal. absent: Dysuria, Frequency, Hematuria, Urinary Output Changes Musculoskeletal: Normal. absent: Back Pain, Neck Pain Skin: Normal. absent: Rash Neurological: Normal. absent: Headache, Dizziness Endocrine: Normal Hemo/Lymphatic: Normal Psychiatric: Normal Physical Exam Vital Signs Reviewed: Yes Vital Signs Temp Pulse Resp BP Pulse Ox 12/12/17 01:35 98.0 F 66 18 138/70 98 12/12/17 01:00 98.0 F 66 18 138/70 98 12/11/17 23:18 98.4 F 64 18 142/64 99 Temperature: Afebrile Blood Pressure: Normal Pulse: Regular Respiratory Rate: Normal Appearance: Positive for: Well-Appearing, Non-Toxic, Comfortable Pain Distress: None Mental Status: Positive for: Alert and Oriented X 3 - Systems Exam Head: Present: Atraumatic, Normocephalic Pupils: Present: PERRL Extroacular Muscles: Present: EOMI Conjunctiva: Present: Normal Mouth: Present: Moist Mucous Membranes Neck: Present: Normal Range of Motion Respiratory/Chest: Present: Clear to Auscultation, Good Air Exchange. No: Respiratory Distress, Accessory Muscle Use Cardiovascular: Present: Regular Rate and Rhythm, Normal S1, S2. No: Murmurs Abdomen: No: Tenderness, Distention, Peritoneal Signs Back: Present: Normal Inspection Upper Extremity: Present: Normal Inspection. No: Cyanosis, Edema Lower Extremity: Present: Normal Inspection. No: Edema Neurological: Present: GCS=15, CN II-XII Intact, Speech Normal Skin: Present: Warm, Dry, Normal Color. No: Rashes Psychiatric: Present: Alert, Oriented x 3, Normal Insight, Normal Concentration Medical Decision Making ED Course and Treatment: 12/12/17 00:07 Impression: 42 year old male complaining of chronic abdominal pain. Differential Diagnosis included but are not limited to: gastritis Plan: -- Reassess and disposition Prior Visits: Notes and results from previous visits were reviewed. Progress Notes: 12/12/17 01:35 On re-evaluation, patient feels better and is in no acute distress. Patient is stable for discharge. Patient was instructed to follow up with physician or return if symptoms worsen or new concerning symptoms arise. - Medication Orders Current Medication Orders: Discontinued Medications Acetaminophen (Tylenol 325mg Tab) 650 mg PO STAT STA Stop: 12/12/17 00:52 Last Admin: 12/12/17 01:00 Dose: 650 mg MAR Pain/Vitals Document 12/12/17 01:00 NIEVES (Rec: 12/12/17 01:00 NIEVES [id number] Pain Reassessment Is This A Pain ReAssessment? Yes Presence of Pain Presence of Pain No Location Pain Location Body Site Abdomen - Scribe Statement The provider has reviewed the documentation as recorded by the Scribe Catherine Zhou All medical record entries made by the Scribe were at my direction and personally dictated by me. I have reviewed the chart and agree that the record accurately reflects my personal performance of the history, physical exam, medical decision making, and the department course for this patient. I have also personally directed, reviewed, and agree with the discharge instructions and disposition. Disposition/Present on Arrival - Present on Arrival Any Indicators Present on Arrival: No History of DVT/PE: No History of Uncontrolled Diabetes: No Urinary Catheter: No History of Decub. Ulcer: No History Surgical Site Infection Following: None - Disposition Have Diagnosis and Disposition been Completed?: Yes Diagnosis: Hernia, inguinal, left Disposition: HOME/ ROUTINE Disposition Time: 01:35 Condition: GOOD Discharge Instructions (ExitCare): Inguinal and Femoral (Groin) Hernias Referrals: Sheng Cole MD [Primary Care Provider] - Follow up with primary Forms: [facility] (Macedonian)
[2017-12-12 01:11] VITALS: BP 138/70; PULSE 66; TEMP 98; O2SAT 98
== END 2017-12-12 01:35 | disposition home or self-care (01) ==
LOC: ED 22:45
DX: K40.90 Unilateral inguinal hernia, without obstruction or gangrene, not specified as recurrent (principal)

== ENCOUNTER 2017-12-12 22:56 | Emergency (ER) | payer SELFPAY ==
[2017-12-12 22:56] VITALS: BMI 21.5
--- NOTE | 2017-12-13 01:06 | ED PDOC ---
Arrival/HPI - General Chief Complaint: Medical Clearance Time Seen by Provider: 12/13/17 01:06 Historian: Patient - History of Present Illness Narrative History of Present Illness (Text): 12/13/17 01:07 A 42 year old male, alcohol abuse, hypertension, gastritis and pancreatitis, well known to the emergency department presents to the emergency department seeking for a place to stay. The patient has a history of homelessness. The patient denies fevers, chills, headache, dizziness, chest pain, shortness of breath, dyspnea on exertion, cough, abdominal pain, nausea, vomiting, diarrhea, back pain, neck pain, urinary/bowel changes, or any other complaint. Time/Duration: Prior to Arrival Symptom Onset: Sudden Symptom Course: Unchanged Activities at Onset: Rest, Light Context: Street Past Medical History - Provider Review Nursing Documentation Reviewed: Yes - Past History Past History: No Previous - Infectious Disease Hx of Infectious Diseases: None - Tetanus Immunization Tetanus Immunization: Unknown - Past Medical History Past Medical History: No Previous - Cardiac Hx Cardiac Disorders: Yes Hx Hypertension: Yes - Pulmonary Hx Respiratory Disorders: No - Neurological Hx Neurological Disorder: No - HEENT Hx HEENT Disorder: No - Renal Hx Renal Disorder: No - Endocrine/Metabolic Hx Endocrine Disorders: No - Hematological/Oncological Hx Blood Disorders: No - Integumentary Hx Dermatological Disorder: No - Musculoskeletal/Rheumatological Hx Musculoskeletal Disorders: No - Gastrointestinal Hx Gastrointestinal Disorders: Yes Hx Gastroesophageal Reflux: Yes Hx Pancreatitis: Yes - Genitourinary/Gynecological Hx Genitourinary Disorders: No Hx Sexually Transmitted Diseases: No - Psychiatric Hx Psychophysiologic Disorder: No Hx Substance Use: No Other/Comment: alcohol abuse - Past Surgical History Past Surgical History: No Previous - Surgical History Hx Amputation: No Hx Appendectomy: No Hx Cardiac Catheterization: No Hx Cholecystectomy: No Hx Coronary Stent: No Hx Gastric Bypass Surgery: No Hx Hysterectomy: No Hx Joint Replacement: No Hx Kidney Transplant: No Hx Liver Transplant: No Hx Mastectomy: No Hx Musculoskeletal Surgery: No Hx Open Heart Surgery: No Hx Orthopedic Surgery: No Hx Splenectomy: No Hx Valve Replacement: No - Anesthesia Hx Anesthesia: No Hx Anesthesia Reactions: No Hx Malignant Hyperthermia: No - Suicidal Assessment Feels Threatened In Home Enviroment: No Family/Social History - Physician Review Nursing Documentation Reviewed: Yes Family/Social History: No Known Family HX Smoking Status: Light Smoker < 10 Cigarettes Daily Hx Alcohol Use: Yes Amount per day: 24 Hx Substance Use: No Allergies/Home Meds Allergies/Adverse Reactions: Allergies No Known Allergies Allergy (Verified 12/04/17 02:01) Home Medications: Home Meds Medication Instructions Recorded Confirmed No Known Home Med 12/04/17 12/04/17 Review of Systems - Physician Review All systems were reviewed & negative as marked: Yes - Review of Systems Constitutional: absent: Fevers, Night Sweats Respiratory: absent: SOB, Cough Cardiovascular: absent: Chest Pain, DAN Gastrointestinal: absent: Abdominal Pain, Stool Changes, Diarrhea, Nausea, Vomiting Genitourinary Male: absent: Urinary Output Changes Musculoskeletal: absent: Back Pain, Neck Pain Neurological: absent: Headache, Dizziness Physical Exam Vital Signs Reviewed: Yes Vital Signs Temp Pulse Resp BP Pulse Ox 12/13/17 04:10 97.9 F 82 18 125/74 100 12/13/17 03:00 75 18 126/72 97 12/13/17 01:00 74 18 123/71 97 12/12/17 23:10 98.3 F 77 20 127/76 98 Temperature: Afebrile Blood Pressure: Normal Pulse: Regular Respiratory Rate: Normal Appearance: Positive for: Well-Appearing, Non-Toxic, Comfortable Pain Distress: None Mental Status: Positive for: Alert and Oriented X 3 - Systems Exam Head: Present: Atraumatic, Normocephalic Pupils: Present: PERRL Extroacular Muscles: Present: EOMI Conjunctiva: Present: Normal Mouth: Present: Moist Mucous Membranes Neck: Present: Normal Range of Motion Respiratory/Chest: Present: Clear to Auscultation, Good Air Exchange. No: Respiratory Distress, Accessory Muscle Use Cardiovascular: Present: Regular Rate and Rhythm, Normal S1, S2. No: Murmurs Abdomen: No: Tenderness, Distention, Peritoneal Signs Back: Present: Normal Inspection Upper Extremity: Present: Normal Inspection. No: Cyanosis, Edema Lower Extremity: Present: Normal Inspection. No: Edema Neurological: Present: GCS=15, CN II-XII Intact, Speech Normal Skin: Present: Warm, Dry, Normal Color. No: Rashes Psychiatric: Present: Alert, Oriented x 3, Normal Insight, Normal Concentration Medical Decision Making ED Course and Treatment: 12/13/17 01:08 Impression: A 42 year old male presents to the emergency department seeking a place to stay. Plan: -- Reassess and disposition Progress Notes: - Scribe Statement The provider has reviewed the documentation as recorded by the Scribe Serena Alarcon Provider Scribe Attestation: All medical record entries made by the Scribe were at my direction and personally dictated by me. I have reviewed the chart and agree that the record accurately reflects my personal performance of the history, physical exam, medical decision making, and the department course for this patient. I have also personally directed, reviewed, and agree with the discharge instructions and disposition. Disposition/Present on Arrival - Present on Arrival Any Indicators Present on Arrival: No History of DVT/PE: No History of Uncontrolled Diabetes: No Urinary Catheter: No History of Decub. Ulcer: No History Surgical Site Infection Following: None - Disposition Have Diagnosis and Disposition been Completed?: Yes Diagnosis: Homelessness Disposition: HOME/ ROUTINE Disposition Time: 06:00 Condition: GOOD Forms: [facility] (Greek)
[2017-12-13 05:19] VITALS: BP 125/74; PULSE 82; RESP 18; TEMP 97.9; O2SAT 100
== END 2017-12-13 04:10 | disposition home or self-care (01) ==
LOC: ED 22:56
DX: Z59.0 Homelessness (principal); I10 Essential (primary) hypertension; F17.210 Nicotine dependence, cigarettes, uncomplicated

== ENCOUNTER 2017-12-16 00:36 | Emergency (ER) | payer SELFPAY ==
[2017-12-16 00:36] VITALS: BMI 21.5
--- NOTE | 2017-12-16 01:18 | ED PDOC ---
Arrival/HPI - General Time Seen by Provider: 12/16/17 01:13 Historian: Patient - History of Present Illness Narrative History of Present Illness (Text): 12/16/17 01:18 Felix Glasgow is a 42 year old male, whose past medical history includes alcohol abuse, hypertension, gastritis and pancreatitis, presents to the emergency department complaining of abdominal discomfort. Patient states symptoms are consistent with his usual chronic abdominal discomfort and admits to drinking alcohol earlier today. Patient states he is homeless and is requesting a place to rest for the night. Patient denies any vomiting, diarrhea , fever, chills or any other complaints at this time. Symptom Onset: Gradual Symptom Course: Unchanged Activities at Onset: Light Context: Street Past Medical History - Provider Review Nursing Documentation Reviewed: Yes - Past History Past History: No Previous - Infectious Disease Hx of Infectious Diseases: None - Tetanus Immunization Tetanus Immunization: Unknown - Past Medical History Past Medical History: No Previous - Cardiac Hx Cardiac Disorders: Yes Hx Hypertension: Yes - Pulmonary Hx Respiratory Disorders: No - Neurological Hx Neurological Disorder: No - HEENT Hx HEENT Disorder: No - Renal Hx Renal Disorder: No - Endocrine/Metabolic Hx Endocrine Disorders: No - Hematological/Oncological Hx Blood Disorders: No - Integumentary Hx Dermatological Disorder: No - Musculoskeletal/Rheumatological Hx Musculoskeletal Disorders: No - Gastrointestinal Hx Gastrointestinal Disorders: Yes Hx Gastroesophageal Reflux: Yes Hx Pancreatitis: Yes - Genitourinary/Gynecological Hx Genitourinary Disorders: No Hx Sexually Transmitted Diseases: No - Psychiatric Hx Psychophysiologic Disorder: No Hx Substance Use: No Other/Comment: alcohol abuse - Past Surgical History Past Surgical History: No Previous - Surgical History Hx Amputation: No Hx Appendectomy: No Hx Cardiac Catheterization: No Hx Cholecystectomy: No Hx Coronary Stent: No Hx Gastric Bypass Surgery: No Hx Hysterectomy: No Hx Joint Replacement: No Hx Kidney Transplant: No Hx Liver Transplant: No Hx Mastectomy: No Hx Musculoskeletal Surgery: No Hx Open Heart Surgery: No Hx Orthopedic Surgery: No Hx Splenectomy: No Hx Valve Replacement: No - Anesthesia Hx Anesthesia: No Hx Anesthesia Reactions: No Hx Malignant Hyperthermia: No - Suicidal Assessment Feels Threatened In Home Enviroment: No Family/Social History - Physician Review Nursing Documentation Reviewed: Yes Family/Social History: Unknown Family HX Smoking Status: Light Smoker < 10 Cigarettes Daily Hx Alcohol Use: Yes Amount per day: 24 Hx Substance Use: No Allergies/Home Meds Allergies/Adverse Reactions: Allergies No Known Allergies Allergy (Verified 12/16/17 01:24) Home Medications: Home Meds Medication Instructions Recorded Confirmed No Known Home Med 12/04/17 12/16/17 Review of Systems - Physician Review All systems were reviewed & negative as marked: Yes - Review of Systems Constitutional: Normal. absent: Fevers Eyes: Normal ENT: Normal Respiratory: Normal. absent: SOB, Cough Cardiovascular: Normal. absent: Chest Pain Gastrointestinal: Abdominal Pain Genitourinary Male: Normal Musculoskeletal: Normal Skin: Normal Neurological: Normal Endocrine: Normal Hemo/Lymphatic: Normal Psychiatric: Normal Physical Exam Vital Signs Reviewed: Yes Vital Signs Temp Pulse Resp BP Pulse Ox 12/16/17 01:23 98.0 F 55 L 18 136/92 H 96 Temperature: Afebrile Blood Pressure: Normal Pulse: Regular Respiratory Rate: Normal Appearance: Positive for: Well-Appearing, Non-Toxic, Comfortable Pain Distress: None Mental Status: Positive for: Alert and Oriented X 3 - Systems Exam Head: Present: Atraumatic, Normocephalic Pupils: Present: PERRL Extroacular Muscles: Present: EOMI Conjunctiva: Present: Normal Mouth: Present: Moist Mucous Membranes Neck: Present: Normal Range of Motion Respiratory/Chest: Present: Clear to Auscultation, Good Air Exchange. No: Respiratory Distress, Accessory Muscle Use Cardiovascular: Present: Regular Rate and Rhythm, Normal S1, S2. No: Murmurs Abdomen: No: Tenderness, Distention, Peritoneal Signs, Hernias Back: Present: Normal Inspection Upper Extremity: Present: Normal Inspection. No: Cyanosis, Edema Lower Extremity: Present: Normal Inspection. No: Edema Neurological: Present: GCS=15, CN II-XII Intact, Speech Normal Skin: Present: Warm, Dry, Normal Color. No: Rashes Psychiatric: Present: Alert, Oriented x 3, Normal Insight, Normal Concentration Medical Decision Making ED Course and Treatment: 12/16/17 01:18 Impression: 42 year old male complaining of chronic abdominal discomfort and is requesting a place to stay for the night. Plan: -- Labs, lipase -- IV fluids -- Pepcid -- Toradol -- Reassess and disposition Progress Notes: - Lab Interpretations Lab Results: 12/16/17 01:32 12/16/17 01:32 Lab Results 12/16/17 01:32: WBC 5.6, RBC 3.45 L, Hgb 10.5 L, Hct 32.7 L, MCV 94.8, MCH 30.4 , MCHC 32.1, RDW 17.5 H, Plt Count 195, MPV 10.8 12/16/17 01:32: Sodium 143, Potassium 3.9, Chloride 102, Carbon Dioxide 32, Anion Gap 14, BUN 4 L, Creatinine 0.6 L, Est GFR ( Amer) > 60, Est GFR ( Non-Af Amer) > 60, Random Glucose 102, Calcium 8.5, Total Bilirubin 0.8, AST 96 H, ALT 59 H, Alkaline Phosphatase 140 H, Total Protein 6.8, Albumin 3.4, Globulin 3.5, Albumin/Globulin Ratio 1.0 L, Lipase < 10 L - Medication Orders Current Medication Orders: Discontinued Medications Famotidine (Pepcid) 20 mg IVP STAT STA Stop: 12/16/17 01:23 Last Admin: 12/16/17 01:40 Dose: 20 mg IVP Administration Document 12/16/17 01:40 GRANT (Rec: 12/16/17 01:40 GRANT MUNIZ) Charges for Administration # of IVP Administrations 1 Sodium Chloride (Sodium Chloride 0.9%) 1,000 mls @ 999 mls/hr IV .Q1H1M STA Stop: 12/16/17 02:22 Last Admin: 12/16/17 01:40 Dose: 999 mls/hr eMAR Start Stop Document 12/16/17 01:40 GRANT (Rec: 12/16/17 01:41 GRANT MUNIZ) Intravenous Solution Start Date 12/16/17 Start Time 01:40 End Date 12/16/17 End time 02:41 Total Infusion Time 61 Ketorolac Tromethamine (Toradol) 30 mg IVP ONCE ONE Stop: 12/16/17 01:23 Last Admin: 12/16/17 01:40 Dose: 30 mg MAR Pain Assessment Document 12/16/17 01:40 GRANT (Rec: 12/16/17 01:40 GRANT MUNIZ) Pain Reassessment Is this a pain reassessment? No Sleep Is patient sleeping during reassessment? No Presence of Pain Presence of Pain Yes Pain Scale Used Pain Scale Used Numeric Location Left, Right or Bilateral Left Upper or Lower Lower Pain Location Body Site Abdomen Description Description Intermittent Intensity of Pain at present 9 Pain Behavior Guarding IVP Administration Document 12/16/17 01:40 LA (Rec: 12/16/17 01:40 LA [id number]) Charges for Administration # of IVP Administrations 1 Re-Assess: HILDA Pain Assessment Document 12/16/17 02:40 LA (Rec: 12/16/17 02:58 LA [id number]) Pain Reassessment Is this a pain reassessment? Yes Sleep Is patient sleeping during reassessment? Yes - Scribe Statement The provider has reviewed the documentation as recorded by the Becca Zhou Provider Scribe Attestation: All medical record entries made by the Scribe were at my direction and personally dictated by me. I have reviewed the chart and agree that the record accurately reflects my personal performance of the history, physical exam, medical decision making, and the department course for this patient. I have also personally directed, reviewed, and agree with the discharge instructions and disposition. Disposition/Present on Arrival - Present on Arrival Any Indicators Present on Arrival: No History of DVT/PE: No History of Uncontrolled Diabetes: No Urinary Catheter: No History Surgical Site Infection Following: None - Disposition Have Diagnosis and Disposition been Completed?: Yes Diagnosis: Gastritis Disposition: HOME/ ROUTINE Disposition Time: 05:54 Patient Plan: Discharge Condition: GOOD Discharge Instructions (ExitCare): Gastritis (DC) Additional Instructions: Stop drinking alcohol/follow up with your doctor this week
[2017-12-16] MEDS ORDERED: Sodium Chloride 0.9% 1,000 ML IV STA (01:22)
[2017-12-16 01:24] VITALS: RESP 18; TEMP 98
[2017-12-16 02:14] LABS: HEMOGLOBIN 10.5 g/dL (14.0-18.0); MEAN CELL VOLUME 94.8 fl (80.0-105.0); MEAN CORPUSCULAR HEMOGLOBIN 30.4 pg (25.0-35.0); MEAN CORPUSCULAR HGB CONC 32.1 g/dl (31.0-37.0); MEAN PLATELET VOLUME 10.8 fl (7.0-11.0); RBC 3.45 10^6/uL (3.5-6.1); RED CELL DISTRIBUTION WIDTH 17.5 % (11.5-14.5); WHITE BLOOD COUNT 5.6 10^3/ul (4.5-11.0)
[2017-12-16 03:10] LABS: ALBUMIN 3.4 g/dL (3.0-4.8); ALT/SGPT 59 U/L (7-56); AST/SGOT 96 U/L (17-59); BLOOD UREA NITROGEN 4 mg/dL (7-21); CALCIUM 8.5 mg/dL (8.4-10.5); GFR AFRICAN-AMERICAN > 60; GFR NON-AFRICAN AMERICAN > 60; LIPASE < 10 U/L (23-300)
[2017-12-16 06:38] VITALS: BP 130/86; PULSE 56; O2SAT 97
== END 2017-12-16 06:15 | disposition home or self-care (01) ==
LOC: ED 00:36
DX: K29.70 Gastritis, unspecified, without bleeding (principal); I10 Essential (primary) hypertension; F17.210 Nicotine dependence, cigarettes, uncomplicated
CPT/HCPCS: 80053; 83690; 85027; 96361; 96374; 96375; 99283; J1885; J7030

== ENCOUNTER 2017-12-18 23:33 | Emergency (ER) | payer SELFPAY ==
[2017-12-18 23:34] VITALS: BMI 21.5
[2017-12-19 01:14] VITALS: RESP 18; O2SAT 100
--- NOTE | 2017-12-19 04:13 | ED PDOC ---
Arrival/HPI - General Historian: Patient - History of Present Illness Time/Duration: Prior to Arrival Symptom Onset: Sudden Symptom Course: Unchanged Quality: Aching Severity Level: 5 Activities at Onset: Rest Context: Street - General Chief Complaint: Abdominal Pain Time Seen by Provider: 12/18/17 23:39 - History of Present Illness Narrative History of Present Illness (Text): 12/19/17 04:27 Patient is a 42 homeless male who presents with complaints of abdominal pain and left sided groin pain which has been ongoing for months. Looking through patient's past charts; he constantly comes to be seen for the same reason with hopes of being able to stay overnight since he and his partner have no place to stay. Patient states he and his partner just came from [facility] where they were staying for some time before having to come here. Patient denies fevers, chills, chest pain, palpitations, shortness of breath, cough, headache. (Erik Mariano) Past Medical History - Provider Review Nursing Documentation Reviewed: Yes - Past History Past History: No Previous - Infectious Disease Hx of Infectious Diseases: None - Tetanus Immunization Tetanus Immunization: Unknown - Past Medical History Past Medical History: No Previous - Cardiac Hx Cardiac Disorders: Yes Hx Hypertension: Yes - Pulmonary Hx Respiratory Disorders: No - Neurological Hx Neurological Disorder: No - HEENT Hx HEENT Disorder: No - Renal Hx Renal Disorder: No - Endocrine/Metabolic Hx Endocrine Disorders: No - Hematological/Oncological Hx Blood Disorders: No - Integumentary Hx Dermatological Disorder: No - Musculoskeletal/Rheumatological Hx Musculoskeletal Disorders: No - Gastrointestinal Hx Gastrointestinal Disorders: Yes Hx Gastroesophageal Reflux: Yes Hx Pancreatitis: Yes - Genitourinary/Gynecological Hx Genitourinary Disorders: No Hx Sexually Transmitted Diseases: No - Psychiatric Hx Psychophysiologic Disorder: No Hx Substance Use: No Other/Comment: alcohol abuse - Past Surgical History Past Surgical History: No Previous - Surgical History Hx Amputation: No Hx Appendectomy: No Hx Cardiac Catheterization: No Hx Cholecystectomy: No Hx Coronary Stent: No Hx Gastric Bypass Surgery: No Hx Hysterectomy: No Hx Joint Replacement: No Hx Kidney Transplant: No Hx Liver Transplant: No Hx Mastectomy: No Hx Musculoskeletal Surgery: No Hx Open Heart Surgery: No Hx Orthopedic Surgery: No Hx Splenectomy: No Hx Valve Replacement: No - Anesthesia Hx Anesthesia: No Hx Anesthesia Reactions: No Hx Malignant Hyperthermia: No - Suicidal Assessment Feels Threatened In Home Enviroment: No Family/Social History - Physician Review Nursing Documentation Reviewed: Yes Family/Social History: No Known Family HX Smoking Status: Light Smoker < 10 Cigarettes Daily Hx Alcohol Use: Yes Amount per day: 24 Hx Substance Use: No Allergies/Home Meds Allergies/Adverse Reactions: Allergies No Known Allergies Allergy (Verified 12/19/17 01:14) Review of Systems - Physician Review All systems were reviewed & negative as marked: Yes - Review of Systems Constitutional: Normal. absent: Fatigue, Fevers, Night Sweats Eyes: Normal. absent: Vision Changes ENT: Normal Respiratory: Normal. absent: SOB, Cough, Sputum Cardiovascular: Normal. absent: Chest Pain Gastrointestinal: Abdominal Pain. absent: Diarrhea, Nausea, Vomiting Genitourinary Male: absent: Dysuria, Hematuria, Urinary Output Changes Musculoskeletal: Normal Skin: Normal Neurological: Normal. absent: Headache, Dizziness Endocrine: Normal Physical Exam Vital Signs Reviewed: Yes Temperature: Afebrile Blood Pressure: Normal Pulse: Regular Respiratory Rate: Normal Appearance: Positive for: Well-Appearing, Non-Toxic, Comfortable Pain Distress: None Mental Status: Positive for: Alert and Oriented X 3 - Systems Exam Head: Present: Atraumatic, Normocephalic Pupils: Present: PERRL Extroacular Muscles: Present: EOMI Conjunctiva: Present: Normal Mouth: Present: Moist Mucous Membranes Respiratory/Chest: Present: Clear to Auscultation. No: Accessory Muscle Use, Wheezes, Rhonchi Cardiovascular: Present: Regular Rate and Rhythm, Normal S1, S2 Abdomen: Present: Tenderness, Normal Bowel Sounds. No: Distention, Peritoneal Signs, Rebound, Guarding, McBurney's Point Tender Upper Extremity: Present: Normal Inspection, Edema Lower Extremity: Present: Normal Inspection, Edema Neurological: Present: GCS=15, CN II-XII Intact, Speech Normal Skin: Present: Warm, Normal Color Psychiatric: Present: Alert, Oriented x 3, Normal Insight, Normal Concentration Vital Signs Temp Pulse Resp BP Pulse Ox 12/19/17 05:40 98.3 F 64 18 157/84 H 100 12/19/17 03:21 98.4 F 62 18 152/86 H 100 12/19/17 01:10 98.3 F 60 18 157/99 H 100 Medical Decision Making Reassessment Condition: Re-examined ED Course and Treatment: Patient Seen With Resident: In agreement with resident note which contains more details about the patient. Patient was seen and evaluated with resident. Came up with plan and treatment together. 42 year old homeless male presents complaining of abdominal pain and left sided groin pain for months. -- Motrin Tab (John De La Cruz) 12/19/17 04:36 Ibuprofen to be given for pain, with resolving of pain, patient will be discharged. (Erik Mariano) - Medication Orders Current Medication Orders: Discontinued Medications Ibuprofen (Motrin Tab) 600 mg PO STAT STA Stop: 12/19/17 02:09 Last Admin: 12/19/17 02:30 Dose: 600 mg MAR Pain/Vitals Document 12/19/17 02:30 RG (Rec: 12/19/17 02:32 RG [id number]) Pain Reassessment Is This A Pain ReAssessment? Yes Location Upper or Lower Lower Pain Location Body Site Abdomen Description Stabbing Intensity 4 Scale Used Numeric Disposition/Present on Arrival - Present on Arrival Any Indicators Present on Arrival: No History of DVT/PE: No History of Uncontrolled Diabetes: No Urinary Catheter: No History of Decub. Ulcer: No History Surgical Site Infection Following: None - Disposition Have Diagnosis and Disposition been Completed?: Yes Disposition Time: 05:33 Patient Plan: Discharge - Disposition Diagnosis: Generalized colicky abdominal pain Disposition: HOME/ ROUTINE Condition: GOOD Additional Instructions: Mr. Glasgow, thank you for letting us take care of you today. The emergency medical care you received today was directed at your acute symptoms. If you were prescribed any medication, please fill it and take as directed. It may take several days for your symptoms to resolve. Return to the Emergency Department if your symptoms worsen, do not improve, or if you have any other problems. Please contact your doctor or call one of the physicians/clinics you have been referred to that are listed on the Patient Visit Information form that is included in your discharge packet. Bring any paperwork you were given at discharge with you along with any medications you are taking to your follow up visit. Our treatment cannot replace ongoing medical care by a primary care provider (PCP) outside of the emergency department. Thank you for allowing the [facility] team to be part of your care today. If you had an X-Ray or CT scan: A Radiologist will review the ED reading if any change in treatment is needed we will contact you. If you had a blood, urine, or wound culture: It will take several days for the results, if any change in treatment is needed we will contact you. If you had an STI test: It will take 48 hours for the results. Please call after 1 week if you have not heard back. Prescriptions: Ibuprofen [Motrin Tab] 600 mg PO Q6H #16 tab Forms: [employer] (Thai)
[2017-12-19 05:41] VITALS: BP 157/84; PULSE 64; TEMP 98.3
== END 2017-12-19 05:44 | disposition home or self-care (01) ==
LOC: ED 23:33
DX: R10.84 Generalized abdominal pain (principal); F17.210 Nicotine dependence, cigarettes, uncomplicated; I10 Essential (primary) hypertension

== ENCOUNTER 2018-01-04 00:58 | Emergency (ER) | payer SELFPAY ==
[2018-01-04 02:30] VITALS: BMI 22.9
[2018-01-04 02:31] VITALS: RESP 18
--- NOTE | 2018-01-04 02:45 | ED PDOC ---
Arrival/HPI - General Chief Complaint: Abdominal Pain Time Seen by Provider: 01/04/18 01:30 - History of Present Illness Narrative History of Present Illness (Text): 01/04/18 02:39 Pt is 42 yo M presents to ED with abdominal pain for the last couple of hours. Patient states that pain is located in LLQ. Patient denies any changes in bowel movements and is passing flatus. Patient denies nausea and vomiting. Patient is well known to the ED and has several visits in the past for abdominal pain, all of which has had negative workup. Patient is known to have come to the ED for a place to sleep. Patient states he drank beer earlier and denies any drug use. Patient denies CP, SOB, n/v/d, chills, fever, CANCINO, or dizziness. Past Medical History - Past History Past History: No Previous - Infectious Disease Hx of Infectious Diseases: None - Tetanus Immunization Tetanus Immunization: Unknown - Past Medical History Past Medical History: No Previous - Cardiac Hx Cardiac Disorders: Yes Hx Hypertension: Yes - Pulmonary Hx Respiratory Disorders: No - Neurological Hx Neurological Disorder: No - HEENT Hx HEENT Disorder: No - Renal Hx Renal Disorder: No - Endocrine/Metabolic Hx Endocrine Disorders: No - Hematological/Oncological Hx Blood Disorders: No - Integumentary Hx Dermatological Disorder: No - Musculoskeletal/Rheumatological Hx Musculoskeletal Disorders: No - Gastrointestinal Hx Gastrointestinal Disorders: Yes Hx Gastroesophageal Reflux: Yes Hx Pancreatitis: Yes - Genitourinary/Gynecological Hx Genitourinary Disorders: No Hx Sexually Transmitted Diseases: No - Psychiatric Hx Psychophysiologic Disorder: No Hx Substance Use: No Other/Comment: alcohol abuse - Past Surgical History Past Surgical History: No Previous - Surgical History Hx Amputation: No Hx Appendectomy: No Hx Cardiac Catheterization: No Hx Cholecystectomy: No Hx Coronary Stent: No Hx Gastric Bypass Surgery: No Hx Hysterectomy: No Hx Joint Replacement: No Hx Kidney Transplant: No Hx Liver Transplant: No Hx Mastectomy: No Hx Musculoskeletal Surgery: No Hx Open Heart Surgery: No Hx Orthopedic Surgery: No Hx Splenectomy: No Hx Valve Replacement: No - Anesthesia Hx Anesthesia: No Hx Anesthesia Reactions: No Hx Malignant Hyperthermia: No - Suicidal Assessment Feels Threatened In Home Enviroment: No Family/Social History Family/Social History: No Known Family HX Smoking Status: Light Smoker < 10 Cigarettes Daily Hx Alcohol Use: Yes Amount per day: 24 Hx Substance Use: No Allergies/Home Meds Allergies/Adverse Reactions: Allergies No Known Allergies Allergy (Verified 12/19/17 01:14) Home Medications: Home Meds Medication Instructions Recorded Confirmed No Known Home Med 01/04/18 01/04/18 Review of Systems - Physician Review All systems were reviewed & negative as marked: Yes (12 point ROS reviewed and is negative other than what is stated in HPI.) Physical Exam Vital Signs Reviewed: Yes Vital Signs Temp Pulse Resp BP Pulse Ox 01/04/18 02:30 98.3 F 67 18 138/80 97 Temperature: Afebrile Blood Pressure: Normal Pulse: Regular Respiratory Rate: Normal Appearance: Positive for: Non-Toxic Pain Distress: Mild Mental Status: Positive for: Alert and Oriented X 3 - Systems Exam Head: Present: Atraumatic, Normocephalic Pupils: Present: PERRL Extroacular Muscles: Present: EOMI Conjunctiva: Present: Injected Mouth: Present: Moist Mucous Membranes Neck: Present: Normal Range of Motion Respiratory/Chest: Present: Clear to Auscultation. No: Wheezes, Rales, Rhonchi Cardiovascular: Present: Regular Rate and Rhythm, Normal S1, S2. No: Murmurs, Rub, Gallop Abdomen: Present: Tenderness (RLQ). No: Distention, Rebound, Guarding Upper Extremity: Present: Normal Inspection Lower Extremity: Present: Normal Inspection Neurological: Present: GCS=15, CN II-XII Intact, Speech Normal Skin: Present: Warm, Dry, Normal Color. No: Rashes Psychiatric: Present: Alert, Oriented x 3, Normal Insight, Normal Concentration Medical Decision Making ED Course and Treatment: 01/04/18 02:47 42 yo M presents to ED with abdominal pain who is well known to ED, who is usually looking for a place to sleep. Plan: - Pepcid - Reassess and disposition 01/04/18 05:53 Patient feeling better and will be discharged. - Medication Orders Current Medication Orders: Discontinued Medications Famotidine (Pepcid) 40 mg PO STAT STA Stop: 01/04/18 02:46 Last Admin: 01/04/18 03:35 Dose: 40 mg Disposition/Present on Arrival - Present on Arrival Any Indicators Present on Arrival: No History of DVT/PE: No History of Uncontrolled Diabetes: No Urinary Catheter: No History of Decub. Ulcer: No History Surgical Site Infection Following: None - Disposition Have Diagnosis and Disposition been Completed?: Yes Diagnosis: Abdominal pain Disposition: HOME/ ROUTINE Disposition Time: 05:53 Patient Plan: Discharge Patient Problems: Current Active Problems Problem Status Onset Abdominal pain Acute Condition: STABLE Additional Instructions: 1. Avoid all alcohol, tobacco, or illicit drug use 2. Recommend mild diet if symptoms persist 3. Recommend follow up with primary doctor within 1 week 4. Return to ED if symptoms worsen VITOR ROBLES, thank you for letting us take care of you today. Your provider was Brain Rivera MD and you were treated for stomach pain. The emergency medical care you received today was directed at your acute symptoms. If you were prescribed any medication, please fill it and take as directed. It may take several days for your symptoms to resolve. Return to the Emergency Department if your symptoms worsen, do not improve, or if you have any other problems. Please contact your doctor or call one of the physicians/clinics you have been referred to that are listed on the Patient Visit Information form that is included in your discharge packet. Bring any paperwork you were given at discharge with you along with any medications you are taking to your follow up visit. Our treatment cannot replace ongoing medical care by a primary care provider outside of the emergency department. Thank you for allowing the [facility] [employer] team to be part of your care today. Forms: [employer] (Danish)
[2018-01-04 06:36] VITALS: BP 151/82; PULSE 62; TEMP 98; O2SAT 99
== END 2018-01-04 06:00 | disposition home or self-care (01) ==
LOC: ED 00:58
DX: R10.9 Unspecified abdominal pain (principal)

== ENCOUNTER 2018-01-07 00:38 | Emergency (ER) | payer SELFPAY ==
[2018-01-07 00:38] VITALS: BMI 22.9
[2018-01-07] MEDS ORDERED: Magnesium Citrate Oral SOL (300 ml) PO ONE (01:24)
--- NOTE | 2018-01-07 01:24 | ED PDOC ---
Arrival/HPI - General Chief Complaint: Abdominal Pain Time Seen by Provider: 01/07/18 00:40 Historian: Patient - History of Present Illness Narrative History of Present Illness (Text): 01/07/18 01:20 Felix Glasgow is a 42 year old male, whose past medical history includes alcohol abuse, hypertension, gastritis and pancreatitis, presents to the emergency department complaining of abdominal discomfort and constipation. Patient admits to drinking alcohol earlier today. Patient is homeless and requesting a place to rest for the night. Patient denies any vomiting, diarrhea , fever, chills or any other complaints at this time. Symptom Onset: Gradual Symptom Course: Unchanged Activities at Onset: Light Past Medical History - Provider Review Nursing Documentation Reviewed: Yes - Past History Past History: No Previous - Infectious Disease Hx of Infectious Diseases: None - Tetanus Immunization Tetanus Immunization: Unknown - Past Medical History Past Medical History: No Previous - Cardiac Hx Cardiac Disorders: Yes Hx Hypertension: Yes - Pulmonary Hx Respiratory Disorders: No - Neurological Hx Neurological Disorder: No - HEENT Hx HEENT Disorder: No - Renal Hx Renal Disorder: No - Endocrine/Metabolic Hx Endocrine Disorders: No - Hematological/Oncological Hx Blood Disorders: No - Integumentary Hx Dermatological Disorder: No - Musculoskeletal/Rheumatological Hx Musculoskeletal Disorders: No - Gastrointestinal Hx Gastrointestinal Disorders: Yes Hx Gastroesophageal Reflux: Yes Hx Pancreatitis: Yes - Genitourinary/Gynecological Hx Genitourinary Disorders: No Hx Sexually Transmitted Diseases: No - Psychiatric Hx Psychophysiologic Disorder: No Hx Substance Use: No Other/Comment: alcohol abuse - Past Surgical History Past Surgical History: No Previous - Surgical History Hx Amputation: No Hx Appendectomy: No Hx Cardiac Catheterization: No Hx Cholecystectomy: No Hx Coronary Stent: No Hx Gastric Bypass Surgery: No Hx Hysterectomy: No Hx Joint Replacement: No Hx Kidney Transplant: No Hx Liver Transplant: No Hx Mastectomy: No Hx Musculoskeletal Surgery: No Hx Open Heart Surgery: No Hx Orthopedic Surgery: No Hx Splenectomy: No Hx Valve Replacement: No - Anesthesia Hx Anesthesia: No Hx Anesthesia Reactions: No Hx Malignant Hyperthermia: No - Suicidal Assessment Feels Threatened In Home Enviroment: No Family/Social History - Physician Review Nursing Documentation Reviewed: Yes Family/Social History: Unknown Family HX Smoking Status: Light Smoker < 10 Cigarettes Daily Hx Alcohol Use: Yes Amount per day: 24 Hx Substance Use: No Allergies/Home Meds Allergies/Adverse Reactions: Allergies No Known Allergies Allergy (Verified 01/07/18 00:44) Home Medications: Home Meds Medication Instructions Recorded Confirmed No Known Home Med 01/04/18 01/07/18 Review of Systems - Physician Review All systems were reviewed & negative as marked: Yes - Review of Systems Constitutional: Normal. absent: Fevers Eyes: Normal ENT: Normal Respiratory: Normal. absent: SOB, Cough Cardiovascular: Normal. absent: Chest Pain Gastrointestinal: Abdominal Pain, Constipation. absent: Diarrhea, Nausea, Vomiting Genitourinary Male: Normal. absent: Dysuria, Frequency, Hematuria, Urinary Output Changes Musculoskeletal: Normal. absent: Back Pain, Neck Pain Skin: Normal. absent: Rash Neurological: Normal. absent: Headache, Dizziness Endocrine: Normal Hemo/Lymphatic: Normal Psychiatric: Normal Physical Exam Vital Signs Reviewed: Yes Vital Signs Temp Pulse Resp BP Pulse Ox 01/07/18 05:19 58 L 18 178/112 H 99 01/07/18 00:49 98.7 F 75 18 166/103 H 99 Temperature: Afebrile Blood Pressure: Hypertensive Pulse: Regular Respiratory Rate: Normal Appearance: Positive for: Well-Appearing, Non-Toxic, Comfortable Pain Distress: None Mental Status: Positive for: Alert and Oriented X 3 - Systems Exam Head: Present: Atraumatic, Normocephalic Pupils: Present: PERRL Extroacular Muscles: Present: EOMI Conjunctiva: Present: Normal Mouth: Present: Moist Mucous Membranes Neck: Present: Normal Range of Motion Respiratory/Chest: Present: Clear to Auscultation, Good Air Exchange. No: Respiratory Distress, Accessory Muscle Use Cardiovascular: Present: Regular Rate and Rhythm, Normal S1, S2. No: Murmurs Abdomen: No: Tenderness, Distention, Peritoneal Signs Back: Present: Normal Inspection Upper Extremity: Present: Normal Inspection. No: Cyanosis, Edema Lower Extremity: Present: Normal Inspection. No: Edema Neurological: Present: GCS=15, CN II-XII Intact, Speech Normal Skin: Present: Warm, Dry, Normal Color. No: Rashes Psychiatric: Present: Alert, Oriented x 3, Normal Insight, Normal Concentration Medical Decision Making ED Course and Treatment: 01/07/18 01:20 Impression: 42 year old male complaining of abdominal discomfort and constipation. Plan: -- Magnesium Citrate -- Fleet Enema -- Reassess and disposition Progress Notes: 01/07/18 06:05 On re-evaluation, patient feels better and is in no acute distress. Patient is stable for discharge. Patient was instructed to follow up with physician or return if symptoms worsen or new concerning symptoms arise. - Medication Orders Current Medication Orders: Discontinued Medications Magnesium Citrate (Citrate Of Mag) 300 ml PO ONCE ONE Stop: 01/07/18 01:25 Last Admin: 01/07/18 01:47 Dose: 300 ml Sodium Phosphate (Fleet Enema) 135 ml RC STAT STA Stop: 01/07/18 01:26 Last Admin: 01/07/18 01:47 Dose: 135 ml - Scribe Statement The provider has reviewed the documentation as recorded by the Becca Zhou Provider Scribe Attestation: All medical record entries made by the Scribe were at my direction and personally dictated by me. I have reviewed the chart and agree that the record accurately reflects my personal performance of the history, physical exam, medical decision making, and the department course for this patient. I have also personally directed, reviewed, and agree with the discharge instructions and disposition. Disposition/Present on Arrival - Present on Arrival Any Indicators Present on Arrival: No History of DVT/PE: No History of Uncontrolled Diabetes: No Urinary Catheter: No History of Decub. Ulcer: No History Surgical Site Infection Following: None - Disposition Have Diagnosis and Disposition been Completed?: Yes Diagnosis: Constipation Disposition: HOME/ ROUTINE Disposition Time: 06:06 Patient Plan: Discharge Patient Problems: Current Active Problems Problem Status Onset Constipation Acute Condition: GOOD Discharge Instructions (ExitCare): Constipation, Adult (DC) Additional Instructions: Stay well hydrated /avoid alcohol/increase fiber in your diet/follow up [facility] Forms: [employer] (Mongolian)
[2018-01-07 06:45] VITALS: BP 163/98; PULSE 76; RESP 17; TEMP 98.2; O2SAT 98
== END 2018-01-07 06:45 | disposition home or self-care (01) ==
LOC: ED 00:38
DX: K59.00 Constipation, unspecified (principal)

== ENCOUNTER 2018-02-08 00:56 | Emergency (ER) | payer MEDICAID, OTHER ==
[2018-02-08 01:34] VITALS: BMI 21.5
[2018-02-08] MEDS ORDERED: Sodium Chloride 0.9% 1,000 ML IV STA (01:52)
--- NOTE | 2018-02-08 01:58 | ED PDOC ---
Arrival/HPI - General Chief Complaint: Male Genitourinary Time Seen by Provider: 02/08/18 01:51 Historian: Patient - History of Present Illness Narrative History of Present Illness (Text): 02/08/18 01:54 42 year old male, whose past medical history includes chronic alcohol abuse and gastritis, who presents to the emergency department complaining of stomach discomfort and nausea. Patient admits to drinking alcohol today. Patient denies any fevers, chills, chest pain, shortness of breath, vomiting, diarrhea, back pain, neck pain, headache, dizziness, or any other complaint. Time/Duration: Prior to Arrival Symptom Onset: Gradual Symptom Course: Unchanged Activities at Onset: Light Context: Home Past Medical History - Provider Review Nursing Documentation Reviewed: Yes - Past History Past History: No Previous - Infectious Disease Hx of Infectious Diseases: None - Tetanus Immunization Tetanus Immunization: Unknown - Past Medical History Past Medical History: No Previous - Cardiac Hx Cardiac Disorders: Yes Hx Hypertension: Yes - Pulmonary Hx Respiratory Disorders: No - Neurological Hx Neurological Disorder: No - HEENT Hx HEENT Disorder: No - Renal Hx Renal Disorder: No - Endocrine/Metabolic Hx Endocrine Disorders: No - Hematological/Oncological Hx Blood Disorders: No - Integumentary Hx Dermatological Disorder: No - Musculoskeletal/Rheumatological Hx Musculoskeletal Disorders: No - Gastrointestinal Hx Gastrointestinal Disorders: Yes Hx Gastroesophageal Reflux: Yes Hx Pancreatitis: Yes - Genitourinary/Gynecological Hx Genitourinary Disorders: No Hx Sexually Transmitted Diseases: No - Psychiatric Hx Psychophysiologic Disorder: No Hx Substance Use: No Other/Comment: alcohol abuse - Past Surgical History Past Surgical History: No Previous - Surgical History Hx Amputation: No Hx Appendectomy: No Hx Cardiac Catheterization: No Hx Cholecystectomy: No Hx Coronary Stent: No Hx Gastric Bypass Surgery: No Hx Hysterectomy: No Hx Joint Replacement: No Hx Kidney Transplant: No Hx Liver Transplant: No Hx Mastectomy: No Hx Musculoskeletal Surgery: No Hx Open Heart Surgery: No Hx Orthopedic Surgery: No Hx Splenectomy: No Hx Valve Replacement: No - Anesthesia Hx Anesthesia: No Hx Anesthesia Reactions: No Hx Malignant Hyperthermia: No - Suicidal Assessment Feels Threatened In Home Enviroment: No Family/Social History - Physician Review Nursing Documentation Reviewed: Yes Family/Social History: Unknown Family HX Smoking Status: Light Smoker < 10 Cigarettes Daily Hx Alcohol Use: Yes Amount per day: 24 Hx Substance Use: No Allergies/Home Meds Allergies/Adverse Reactions: Allergies No Known Allergies Allergy (Verified 02/08/18 01:35) Review of Systems - Physician Review All systems were reviewed & negative as marked: Yes - Review of Systems Constitutional: Normal Eyes: Normal ENT: Normal Respiratory: Normal. absent: SOB, Cough Cardiovascular: Normal. absent: Chest Pain Gastrointestinal: Normal (discomfort), Abdominal Pain, Nausea. absent: Diarrhea , Vomiting Genitourinary Male: Normal. absent: Dysuria, Frequency Musculoskeletal: Normal. absent: Back Pain, Neck Pain Skin: Normal. absent: Rash Neurological: Normal. absent: Headache, Dizziness Endocrine: Normal Hemo/Lymphatic: Normal Psychiatric: Normal Physical Exam Vital Signs Reviewed: Yes Vital Signs Temp Pulse Resp BP Pulse Ox 02/08/18 01:35 98.6 F 67 16 123/76 100 Temperature: Afebrile Blood Pressure: Normal Pulse: Regular Respiratory Rate: Normal Appearance: Positive for: Well-Appearing, Non-Toxic, Comfortable Pain Distress: None Mental Status: Positive for: Alert and Oriented X 3 - Systems Exam Head: Present: Atraumatic, Normocephalic Pupils: Present: PERRL Extroacular Muscles: Present: EOMI Conjunctiva: Present: Normal Mouth: Present: Moist Mucous Membranes Neck: Present: Normal Range of Motion Respiratory/Chest: Present: Clear to Auscultation, Good Air Exchange. No: Respiratory Distress, Accessory Muscle Use Cardiovascular: Present: Regular Rate and Rhythm, Normal S1, S2. No: Murmurs Abdomen: No: Tenderness, Distention, Peritoneal Signs Back: Present: Normal Inspection Upper Extremity: Present: Normal Inspection. No: Cyanosis, Edema Lower Extremity: Present: Normal Inspection. No: Edema Neurological: Present: GCS=15, CN II-XII Intact, Speech Normal Skin: Present: Warm, Dry, Normal Color. No: Rashes Psychiatric: Present: Alert, Oriented x 3, Normal Insight, Normal Concentration Medical Decision Making ED Course and Treatment: 02/08/18 01:57 Impression: 42 year old male presents to the emergency department complaining of stomach discomfort and nausea. Plan: -- Labs -- Pepcid -- Sodium Chloride -- Toradol -- Zofran -- Reassess and disposition Progress Notes: - Lab Interpretations Lab Results: 02/08/18 02:20 02/08/18 02:20 Lab Results 02/08/18 02:20: Alcohol, Quantitative 329 H* 02/08/18 02:20: WBC 4.9, RBC 3.12 L, Hgb 9.7 L, Hct 28.9 L, MCV 92.6, MCH 31.1, MCHC 33.6, RDW 16.0 H, Plt Count 112 L, MPV 10.0 02/08/18 02:20: Sodium 149 H, Potassium 3.4 L, Chloride 106, Carbon Dioxide 34 H , Anion Gap 12, BUN 6 L, Creatinine 0.6 L, Est GFR ( Amer) > 60, Est GFR (Non-Af Amer) > 60, Random Glucose 101, Calcium 8.1 L, Total Bilirubin 1.6 H, AST 154 H D, ALT 77 H, Alkaline Phosphatase 146 H, Total Protein 6.6, Albumin 3.4, Globulin 3.2, Albumin/Globulin Ratio 1.1 - Medication Orders Current Medication Orders: Discontinued Medications Famotidine (Pepcid) 20 mg IVP STAT STA Stop: 02/08/18 01:53 Last Admin: 02/08/18 02:33 Dose: 20 mg IVP Administration Document 02/08/18 02:33 (Rec: 02/08/18 02:33 [facility] Charges for Administration # of IVP Administrations 1 Sodium Chloride (Sodium Chloride 0.9%) 1,000 mls @ 999 mls/hr IV .Q1H1M STA Stop: 02/08/18 02:52 Last Admin: 02/08/18 02:34 Dose: 999 mls/hr eMAR Start Stop Document 02/08/18 02:34 (Rec: 02/08/18 02:34 [facility] Intravenous Solution Start Date 02/08/18 Start Time 02:34 Ketorolac Tromethamine (Toradol) 30 mg IVP ONCE ONE Stop: 02/08/18 01:53 Last Admin: 02/08/18 02:32 Dose: 30 mg MAR Pain Assessment Document 02/08/18 02:32 (Rec: 02/08/18 02:33 [facility] Pain Reassessment Is this a pain reassessment? No Sleep Is patient sleeping during reassessment? No Presence of Pain Presence of Pain Yes Pain Scale Used Pain Scale Used Numeric IVP Administration Document 02/08/18 02:32 (Rec: 02/08/18 02:33 [email or web address]) Charges for Administration # of IVP Administrations 1 Ondansetron HCl (Zofran Inj) 4 mg IVP ONCE ONE Stop: 02/08/18 01:53 Last Admin: 02/08/18 02:32 Dose: 4 mg IVP Administration Document 02/08/18 02:32 (Rec: 02/08/18 02:32 [email or web address]) Charges for Administration # of IVP Administrations 1 - Scribe Statement The provider has reviewed the documentation as recorded by the Scribe [facility] All medical record entries made by the Scribe were at my direction and personally dictated by me. I have reviewed the chart and agree that the record accurately reflects my personal performance of the history, physical exam, medical decision making, and the department course for this patient. I have also personally directed, reviewed, and agree with the discharge instructions and disposition. Disposition/Present on Arrival - Present on Arrival Any Indicators Present on Arrival: No History of DVT/PE: No History of Uncontrolled Diabetes: No Urinary Catheter: No History of Decub. Ulcer: No History Surgical Site Infection Following: None - Disposition Have Diagnosis and Disposition been Completed?: Yes Diagnosis: Alcohol abuse, Gastritis Disposition: HOME/ ROUTINE Disposition Time: 06:53 Patient Plan: Discharge Condition: GOOD Discharge Instructions (ExitCare): Gastritis (DC), Alcohol Abuse and Alcoholism (DC) Additional Instructions: Avoid alcohol use/take meds as prescribed/follow up in [facility] this week Prescriptions: Famotidine [Pepcid] 20 mg PO BID PRN #24 tab PRN Reason: Dyspepsia Referrals: [facility] [Outside] - Follow up with primary Juli Cr MD [Staff Provider] - Follow up with primary Forms: [employer] (Spanish)
[2018-02-08 02:38] LABS: HEMOGLOBIN 9.7 g/dL (14.0-18.0); MEAN CELL VOLUME 92.6 fl (80.0-105.0); MEAN CORPUSCULAR HEMOGLOBIN 31.1 pg (25.0-35.0); MEAN CORPUSCULAR HGB CONC 33.6 g/dl (31.0-37.0); RBC 3.12 10^6/uL (3.5-6.1); WHITE BLOOD COUNT 4.9 10^3/ul (4.5-11.0)
[2018-02-08 03:08] LABS: ALB/GLOB RATIO 1.1 (1.1-1.8); ALBUMIN 3.4 g/dL (3.0-4.8); ALT/SGPT 77 U/L (7-56); AST/SGOT 154 U/L (17-59); BLOOD UREA NITROGEN 6 mg/dL (7-21); CALCIUM 8.1 mg/dL (8.4-10.5); GFR AFRICAN-AMERICAN > 60; GFR NON-AFRICAN AMERICAN > 60
[2018-02-08 07:41] VITALS: BP 128/76; PULSE 76; RESP 20; TEMP 97.8; O2SAT 97
== END 2018-02-08 07:40 | disposition home or self-care (01) ==
LOC: ED 00:56
DX: K29.70 Gastritis, unspecified, without bleeding (principal); F10.10 Alcohol abuse, uncomplicated; F17.210 Nicotine dependence, cigarettes, uncomplicated; I10 Essential (primary) hypertension
CPT/HCPCS: 80053; 85027; 96374; 96375; 99283; G0480; J1885; J2405; J7030

== ENCOUNTER 2018-02-11 16:59 | Emergency (ER) | payer MEDICAID, OTHER ==
[2018-02-11 17:19] VITALS: PULSE 77; RESP 17; TEMP 98.7; O2SAT 97; BMI 22.2
[2018-02-11] MEDS ORDERED: Emtricitabine-Tenofovir 200 mg-300 mg Tab PO STA (17:43)
--- NOTE | 2018-02-11 17:48 | ED PDOC ---
Arrival/HPI - General Chief Complaint: Medical Clearance Time Seen by Provider: 02/11/18 17:07 Historian: Patient - History of Present Illness Narrative History of Present Illness (Text): 02/11/18 17:44 42 yo male come in request HIV test. Pt admits, had unprotected sexual activity with person who is (+) HIV 2 weeks ago. Otherwise, pt denies any other active physical complaints, denies fever, chills, sore throat, cough, abd. pain, N/V/D , UTI sx, denies penile lesion or discharges, testicular pain or swelling. Ambulate to Ed for evaluation, not in any apparent distress. Past Medical History - Provider Review Nursing Documentation Reviewed: Yes - Travel History Have you recently traveled outside [place] w/in the past 3 mons?: No - Past History Past History: No Previous - Infectious Disease Hx of Infectious Diseases: None - Tetanus Immunization Tetanus Immunization: Unknown - Past Medical History Past Medical History: No Previous - Cardiac Hx Cardiac Disorders: Yes Hx Hypertension: Yes - Pulmonary Hx Respiratory Disorders: No - Neurological Hx Neurological Disorder: No - HEENT Hx HEENT Disorder: No - Renal Hx Renal Disorder: No - Endocrine/Metabolic Hx Endocrine Disorders: No - Hematological/Oncological Hx Blood Disorders: No - Integumentary Hx Dermatological Disorder: No - Musculoskeletal/Rheumatological Hx Musculoskeletal Disorders: No - Gastrointestinal Hx Gastrointestinal Disorders: Yes Hx Gastroesophageal Reflux: Yes Hx Pancreatitis: Yes - Genitourinary/Gynecological Hx Genitourinary Disorders: No Hx Sexually Transmitted Diseases: No - Psychiatric Hx Psychophysiologic Disorder: No Hx Substance Use: No Other/Comment: alcohol abuse - Past Surgical History Past Surgical History: No Previous - Surgical History Hx Amputation: No Hx Appendectomy: No Hx Cardiac Catheterization: No Hx Cholecystectomy: No Hx Coronary Stent: No Hx Gastric Bypass Surgery: No Hx Hysterectomy: No Hx Joint Replacement: No Hx Kidney Transplant: No Hx Liver Transplant: No Hx Mastectomy: No Hx Musculoskeletal Surgery: No Hx Open Heart Surgery: No Hx Orthopedic Surgery: No Hx Splenectomy: No Hx Valve Replacement: No - Anesthesia Hx Anesthesia: No Hx Anesthesia Reactions: No Hx Malignant Hyperthermia: No - Suicidal Assessment Feels Threatened In Home Enviroment: No Family/Social History - Physician Review Nursing Documentation Reviewed: Yes Family/Social History: No Known Family HX Smoking Status: Light Smoker < 10 Cigarettes Daily Hx Alcohol Use: Yes Amount per day: 24 Hx Substance Use: No Allergies/Home Meds Allergies/Adverse Reactions: Allergies No Known Allergies Allergy (Verified 02/11/18 17:19) Review of Systems - Physician Review All systems were reviewed & negative as marked: Yes - Review of Systems Constitutional: Normal Eyes: Normal ENT: Normal Respiratory: Normal. absent: SOB, Cough Cardiovascular: Normal Gastrointestinal: Normal. absent: Abdominal Pain Genitourinary Male: Normal. absent: Dysuria, Frequency, Hematuria Musculoskeletal: Normal Skin: Normal. absent: Rash Neurological: Normal. absent: Headache, Dizziness Endocrine: Normal Hemo/Lymphatic: Normal Psychiatric: Normal Physical Exam Vital Signs Temp Pulse Resp BP Pulse Ox 02/11/18 17:18 98.7 F 77 17 138/76 97 Temperature: Afebrile Blood Pressure: Normal Pulse: Regular Respiratory Rate: Normal Appearance: Positive for: Well-Appearing, Non-Toxic, Comfortable Pain Distress: None Mental Status: Positive for: Alert and Oriented X 3 - Systems Exam Head: Present: Normocephalic Conjunctiva: Present: Normal Ears: Present: NORMAL TM Mouth: Present: Moist Mucous Membranes Pharnyx: No: ERYTHEMA, EXUDATE Neck: Present: Trachea Midline. No: JVD, Bruit Respiratory/Chest: Present: Clear to Auscultation, Good Air Exchange. No: Respiratory Distress, Accessory Muscle Use Cardiovascular: Present: Regular Rate and Rhythm, Normal S1, S2. No: Murmurs Abdomen: No: Tenderness, Distention, Peritoneal Signs, Rebound, Guarding Back: No: CVA Tenderness Upper Extremity: Present: Normal ROM. No: Edema, Deformity Lower Extremity: Present: NORMAL PULSES, Normal ROM. No: Edema, Deformity Neurological: Present: GCS=15, Speech Normal Skin: Present: Warm, Dry, Normal Color. No: Rashes Psychiatric: Present: Alert, Oriented x 3, Normal Insight, Normal Concentration Medical Decision Making ED Course and Treatment: 02/11/18 On re-evaluation, pt is afebrile, hemodynamicaly stable. Non-toxic, asymptomatic currently. Lab was called, HIV1&2 send out test to [facility]. Pt uninsured, has no PMD at present time. Discussed with patient, offered baseline blood work, prophylactic treatment. Need to F/U with Clinic in 1-2 days for results and further treatment/ medication refill. After my discussion with patient, was notified by RN, patient eloped from ED prior blood work and treatment done. - Medication Orders Current Medication Orders: Discontinued Medications Emtricitabine/Tenofovir (Truvada 200 Mg-300 Mg) 1 tab PO STAT STA PRN Reason: Protocol Stop: 02/11/18 17:44 Raltegravir (Isentress) 400 mg PO STAT STA PRN Reason: Protocol Stop: 02/11/18 17:44 Disposition/Present on Arrival - Present on Arrival Any Indicators Present on Arrival: No History of DVT/PE: No History of Uncontrolled Diabetes: No Urinary Catheter: No History of Decub. Ulcer: No History Surgical Site Infection Following: None - Disposition Have Diagnosis and Disposition been Completed?: Yes Diagnosis: HIV exposure Disposition: ELOPEMENT - ER ONLY Disposition Time: 17:42 Patient Problems: Current Active Problems Problem Status Onset HIV exposure Acute Condition: STABLE Discharge Instructions (ExitCare): HIV Testing, Preventing HIV After Unprotected Sex or Needle-Sharing
[2018-02-11 18:38] VITALS: BP 138/70
== END 2018-02-11 18:33 | disposition left against medical advice (07) ==
LOC: ED 16:59
DX: Z20.6 Contact with and (suspected) exposure to human immunodeficiency virus [HIV] (principal); I10 Essential (primary) hypertension; F17.210 Nicotine dependence, cigarettes, uncomplicated

== ENCOUNTER 2018-02-12 22:51 | Emergency (ER) | payer MEDICAID, OTHER ==
[2018-02-12 22:52] VITALS: BMI 22.2
--- NOTE | 2018-02-12 23:26 | ED PDOC ---
Arrival/HPI - General Chief Complaint: Abdominal Pain Time Seen by Provider: 02/12/18 22:53 Historian: Patient - History of Present Illness Narrative History of Present Illness (Text): 02/12/18 23:22 Felix Glasgow is a 42 year old male, whose past medical history includes alcohol abuse, hypertension, gastritis and pancreatitis, presents to the emergency department complaining of stomach discomfort tonight. Patient admits to drinking alcohol earlier today. Patient also complaining of bilateral eye redness. Patient denies any fever, chills, chest pain, shortness of breath, nausea, vomiting, diarrhea, urinary symptoms, back pain, neck pain, headache, dizziness, or any other complaints. Symptom Onset: Gradual Symptom Course: Unchanged Activities at Onset: Light Context: Home Past Medical History - Provider Review Nursing Documentation Reviewed: Yes - Past History Past History: No Previous - Infectious Disease Hx of Infectious Diseases: None - Tetanus Immunization Tetanus Immunization: Unknown - Past Medical History Past Medical History: No Previous - Cardiac Hx Cardiac Disorders: Yes Hx Hypertension: Yes - Pulmonary Hx Respiratory Disorders: No - Neurological Hx Neurological Disorder: No - HEENT Hx HEENT Disorder: No - Renal Hx Renal Disorder: No - Endocrine/Metabolic Hx Endocrine Disorders: No - Hematological/Oncological Hx Blood Disorders: No - Integumentary Hx Dermatological Disorder: No - Musculoskeletal/Rheumatological Hx Musculoskeletal Disorders: No - Gastrointestinal Hx Gastrointestinal Disorders: Yes Hx Gastroesophageal Reflux: Yes Hx Pancreatitis: Yes - Genitourinary/Gynecological Hx Genitourinary Disorders: No Hx Sexually Transmitted Diseases: No - Psychiatric Hx Psychophysiologic Disorder: No Hx Substance Use: No Other/Comment: alcohol abuse - Past Surgical History Past Surgical History: No Previous - Surgical History Hx Amputation: No Hx Appendectomy: No Hx Cardiac Catheterization: No Hx Cholecystectomy: No Hx Coronary Stent: No Hx Gastric Bypass Surgery: No Hx Hysterectomy: No Hx Joint Replacement: No Hx Kidney Transplant: No Hx Liver Transplant: No Hx Mastectomy: No Hx Musculoskeletal Surgery: No Hx Open Heart Surgery: No Hx Orthopedic Surgery: No Hx Splenectomy: No Hx Valve Replacement: No - Anesthesia Hx Anesthesia: No Hx Anesthesia Reactions: No Hx Malignant Hyperthermia: No - Suicidal Assessment Feels Threatened In Home Enviroment: No Family/Social History - Physician Review Nursing Documentation Reviewed: Yes Family/Social History: Unknown Family HX Smoking Status: Light Smoker < 10 Cigarettes Daily Hx Alcohol Use: Yes Amount per day: 24 Hx Substance Use: No Allergies/Home Meds Allergies/Adverse Reactions: Allergies No Known Allergies Allergy (Verified 02/12/18 22:59) Review of Systems - Physician Review All systems were reviewed & negative as marked: Yes - Review of Systems Constitutional: Normal. absent: Fevers Eyes: Other (+bilateral eye redness) ENT: Normal Respiratory: Normal. absent: SOB, Cough Cardiovascular: Normal. absent: Chest Pain Gastrointestinal: Abdominal Pain. absent: Diarrhea, Nausea, Vomiting Genitourinary Male: Normal. absent: Dysuria, Frequency, Hematuria, Urinary Output Changes Musculoskeletal: Normal. absent: Back Pain, Neck Pain Skin: Normal. absent: Rash Neurological: Normal. absent: Headache, Dizziness Endocrine: Normal Hemo/Lymphatic: Normal Psychiatric: Normal Physical Exam Vital Signs Reviewed: Yes Vital Signs Temp Pulse Resp BP Pulse Ox 02/13/18 03:00 60 18 145/72 97 02/12/18 23:10 98.8 F 76 20 153/88 H 98 Temperature: Afebrile Blood Pressure: Normal Pulse: Regular Respiratory Rate: Normal Appearance: Positive for: Well-Appearing, Non-Toxic, Comfortable Pain Distress: None Mental Status: Positive for: Alert and Oriented X 3 - Systems Exam Head: Present: Atraumatic, Normocephalic Pupils: Present: PERRL Extroacular Muscles: Present: EOMI Conjunctiva: Present: Other (Mild bilateral subconjuncatival erythema) Mouth: Present: Moist Mucous Membranes Neck: Present: Normal Range of Motion Respiratory/Chest: Present: Clear to Auscultation, Good Air Exchange. No: Respiratory Distress, Accessory Muscle Use Cardiovascular: Present: Regular Rate and Rhythm, Normal S1, S2. No: Murmurs Abdomen: No: Tenderness, Distention, Peritoneal Signs Back: Present: Normal Inspection Upper Extremity: Present: Normal Inspection. No: Cyanosis, Edema Lower Extremity: Present: Normal Inspection. No: Edema Neurological: Present: GCS=15, CN II-XII Intact, Speech Normal Skin: Present: Warm, Dry, Normal Color. No: Rashes Psychiatric: Present: Alert, Oriented x 3, Normal Insight, Normal Concentration Medical Decision Making ED Course and Treatment: 02/12/18 23:22 Impression: 42 year old male complaining of stomach discomfort and bilateral eye redness. Plan: -- Labs, lipase, alcohol level -- IV fluids -- Pepcid -- Toradol -- Reassess and disposition Progress Notes: 02/13/18 06:40 Pt awake, alert, ambulating with steady gait. In no acute distress, clinically sober. Pt denies any complaints. Pt stable for d/c. - Lab Interpretations Lab Results: 02/12/18 23:37 02/12/18 23:37 Lab Results 02/12/18 23:37: Alcohol, Quantitative 335 H* 02/12/18 23:37: WBC 6.5 D, RBC 3.22 L, Hgb 10.3 L, Hct 30.5 L, MCV 94.7, MCH 32.0, MCHC 33.8, RDW 16.5 H, Plt Count 116 L, MPV 10.3 02/12/18 23:37: Sodium 146, Potassium 3.1 L, Chloride 101, Carbon Dioxide 31, Anion Gap 16, BUN 3 L, Creatinine 0.6 L, Est GFR ( Amer) > 60, Est GFR ( Non-Af Amer) > 60, Random Glucose 111 H, Calcium 9.1, Total Bilirubin 1.9 H, AST 240 H D, ALT 101 H, Alkaline Phosphatase 235 H D, Total Protein 7.4, Albumin 3.9, Globulin 3.4, Albumin/Globulin Ratio 1.1, Lipase < 10 L - Medication Orders Current Medication Orders: Discontinued Medications Famotidine (Pepcid) 20 mg IVP STAT STA Stop: 02/12/18 23:30 Last Admin: 02/12/18 23:48 Dose: 20 mg IVP Administration Document 02/12/18 23:48 AD (Rec: 02/12/18 23:48 AD [id number]) Charges for Administration # of IVP Administrations 1 Sodium Chloride (Sodium Chloride 0.9%) 1,000 mls @ 999 mls/hr IV .Q1H1M STA Stop: 02/13/18 00:29 Last Admin: 02/12/18 23:47 Dose: 999 mls/hr eMAR Start Stop Document 02/12/18 23:47 AD (Rec: 02/12/18 23:48 AD [id number]) Intravenous Solution Start Date 02/12/18 Start Time 23:48 Ketorolac Tromethamine (Toradol) 30 mg IVP ONCE ONE Stop: 07/25/18 23:30 Last Admin: 02/12/18 23:48 Dose: 30 mg MAR Pain Assessment Document 02/12/18 23:48 AD (Rec: 02/12/18 23:48 AD [id number]) Pain Reassessment Is this a pain reassessment? No Presence of Pain Presence of Pain Yes Pain Scale Used Pain Scale Used Numeric Description Intensity of Pain at present 8 IVP Administration Document 02/12/18 23:48 AD (Rec: 02/12/18 23:48 AD [id number]) Charges for Administration # of IVP Administrations 1 Potassium Chloride (K-Dur 20 Meq Er Tab) 40 meq PO STAT STA Stop: 02/13/18 00:21 Last Admin: 02/13/18 00:40 Dose: 40 meq - Scribe Statement The provider has reviewed the documentation as recorded by the Becca Zhou Provider Scribe Attestation: All medical record entries made by the Scribe were at my direction and personally dictated by me. I have reviewed the chart and agree that the record accurately reflects my personal performance of the history, physical exam, medical decision making, and the department course for this patient. I have also personally directed, reviewed, and agree with the discharge instructions and disposition. Disposition/Present on Arrival - Present on Arrival Any Indicators Present on Arrival: No History of DVT/PE: No History of Uncontrolled Diabetes: No Urinary Catheter: No History of Decub. Ulcer: No History Surgical Site Infection Following: None - Disposition Have Diagnosis and Disposition been Completed?: Yes Diagnosis: Alcohol abuse, Gastritis, Conjunctivitis Disposition: HOME/ ROUTINE Disposition Time: 06:45 Patient Plan: Discharge Patient Problems: Current Active Problems Problem Status Onset Alcohol abuse Acute Conjunctivitis Acute Gastritis Acute Condition: GOOD Discharge Instructions (ExitCare): Conjunctivitis ([place]), Gastritis (DC), Alcohol Abuse and Alcoholism (DC) Additional Instructions: Avoid alcohol/medication as prescribed/follow up [facility] Prescriptions: Tobramycin 0.3% [Tobrex 0.3% Ophth Soln] 1 - 2 drop OU QID #1 bottle Referrals: [facility] [facility] [Outside] - Follow up with primary Juli Cr MD [Staff Provider] - Follow up with primary Forms: [employer] ([place])
[2018-02-12] MEDS ORDERED: Sodium Chloride 0.9% 1,000 ML IV STA (23:29)
[2018-02-12 23:40] VITALS: TEMP 98.8
[2018-02-12 23:56] LABS: HEMOGLOBIN 10.3 g/dL (14.0-18.0); MEAN CELL VOLUME 94.7 fl (80.0-105.0); MEAN CORPUSCULAR HGB CONC 33.8 g/dl (31.0-37.0); MEAN PLATELET VOLUME 10.3 fl (7.0-11.0); RBC 3.22 10^6/uL (3.5-6.1); RED CELL DISTRIBUTION WIDTH 16.5 % (11.5-14.5)
[2018-02-13 00:08] LABS: WHITE BLOOD COUNT 6.5 10^3/ul (4.5-11.0)
[2018-02-13 00:18] LABS: ALB/GLOB RATIO 1.1 (1.1-1.8); ALBUMIN 3.9 g/dL (3.0-4.8); ALT/SGPT 101 U/L (7-56); AST/SGOT 240 U/L (17-59); BLOOD UREA NITROGEN 3 mg/dL (7-21); CALCIUM 9.1 mg/dL (8.4-10.5); GFR AFRICAN-AMERICAN > 60; GFR NON-AFRICAN AMERICAN > 60; LIPASE < 10 U/L (23-300)
[2018-02-13] MEDS ORDERED: Potassium Chloride 20 mEq ER Tab PO STA (00:20)
[2018-02-13 05:23] VITALS: RESP 18
[2018-02-13 07:03] VITALS: BP 138/82; PULSE 70; O2SAT 100
== END 2018-02-13 06:45 | disposition home or self-care (01) ==
LOC: ED 22:51
DX: K29.70 Gastritis, unspecified, without bleeding (principal); H10.9 Unspecified conjunctivitis; F10.10 Alcohol abuse, uncomplicated; Y90.8 Blood alcohol level of 240 mg/100 ml or more
CPT/HCPCS: 80053; 83690; 85027; 96374; 96375; 99284; G0480; J1885; J7030

== ENCOUNTER 2018-02-14 21:29 | Emergency (ER) | payer MEDICAID, OTHER ==
[2018-02-14 21:31] VITALS: BMI 22.2
[2018-02-14 21:53] VITALS: TEMP 98.4
--- NOTE | 2018-02-14 22:14 | ED PDOC ---
Arrival/HPI - General Chief Complaint: Abdominal Pain Time Seen by Provider: 02/14/18 22:05 Historian: Patient - History of Present Illness Narrative History of Present Illness (Text): 02/14/18 22:12 This 42 yo male with pmh pancreatitis, and alcohol dependence, presents to this ED c/o abdominal pain x 2 hours. Patient stated "my pancreas hurts". Patient denies nausea, vomiting, diarrhea, rectal bleeding, dizziness, or abnormal gait. Time/Duration: Other (see hpi) Context: Other (homeless) Past Medical History - Provider Review Nursing Documentation Reviewed: Yes - Past History Past History: No Previous - Infectious Disease Hx of Infectious Diseases: None - Tetanus Immunization Tetanus Immunization: Unknown - Past Medical History Past Medical History: No Previous - Cardiac Hx Cardiac Disorders: Yes Hx Hypertension: Yes - Pulmonary Hx Respiratory Disorders: No - Neurological Hx Neurological Disorder: No - HEENT Hx HEENT Disorder: No - Renal Hx Renal Disorder: No - Endocrine/Metabolic Hx Endocrine Disorders: No - Hematological/Oncological Hx Blood Disorders: No - Integumentary Hx Dermatological Disorder: No - Musculoskeletal/Rheumatological Hx Musculoskeletal Disorders: No - Gastrointestinal Hx Gastrointestinal Disorders: Yes Hx Gastroesophageal Reflux: Yes Hx Pancreatitis: Yes - Genitourinary/Gynecological Hx Genitourinary Disorders: No Hx Sexually Transmitted Diseases: No - Psychiatric Hx Psychophysiologic Disorder: No Hx Substance Use: No Other/Comment: alcohol abuse - Past Surgical History Past Surgical History: No Previous - Surgical History Hx Amputation: No Hx Appendectomy: No Hx Cardiac Catheterization: No Hx Cholecystectomy: No Hx Coronary Stent: No Hx Gastric Bypass Surgery: No Hx Hysterectomy: No Hx Joint Replacement: No Hx Kidney Transplant: No Hx Liver Transplant: No Hx Mastectomy: No Hx Musculoskeletal Surgery: No Hx Open Heart Surgery: No Hx Orthopedic Surgery: No Hx Splenectomy: No Hx Valve Replacement: No - Anesthesia Hx Anesthesia: No Hx Anesthesia Reactions: No Hx Malignant Hyperthermia: No - Suicidal Assessment Feels Threatened In Home Enviroment: No Family/Social History - Physician Review Nursing Documentation Reviewed: Yes Family/Social History: Other (noncontributory) Smoking Status: Light Smoker < 10 Cigarettes Daily Hx Alcohol Use: Yes Amount per day: 24 Hx Substance Use: No Allergies/Home Meds Allergies/Adverse Reactions: Allergies No Known Allergies Allergy (Verified 02/14/18 21:49) Review of Systems - Review of Systems Constitutional: Normal. absent: Fatigue, Weight Change, Fevers Eyes: Normal ENT: Normal. absent: Sore Throat Respiratory: Normal. absent: SOB, Cough Cardiovascular: Normal Gastrointestinal: Abdominal Pain. absent: Constipation, Diarrhea, Nausea, Vomiting, Hematochezia Genitourinary Male: Normal. absent: Dysuria, Frequency, Hematuria Musculoskeletal: Normal. absent: Back Pain, Neck Pain Skin: Normal Neurological: Normal Endocrine: Normal Hemo/Lymphatic: Normal Psychiatric: Normal Physical Exam Vital Signs Temp Pulse Resp BP Pulse Ox 02/15/18 02:53 85 18 127/87 99 02/15/18 01:11 85 18 127/87 99 02/14/18 21:49 98.4 F 82 17 158/107 H 98 Temperature: Afebrile Blood Pressure: Hypertensive Pulse: Regular Respiratory Rate: Normal Appearance: Positive for: Well-Appearing, Non-Toxic, Comfortable Pain Distress: None Mental Status: Positive for: Alert and Oriented X 3 - Systems Exam Head: Present: Atraumatic, Normocephalic Pupils: Present: PERRL Extroacular Muscles: Present: EOMI Conjunctiva: Present: Normal Mouth: Present: Moist Mucous Membranes Neck: Present: Normal Range of Motion Respiratory/Chest: Present: Clear to Auscultation, Good Air Exchange. No: Respiratory Distress, Accessory Muscle Use Cardiovascular: Present: Regular Rate and Rhythm, Normal S1, S2. No: Murmurs Abdomen: Present: Normal Bowel Sounds. No: Tenderness, Distention, Peritoneal Signs, Rebound, Guarding, McBurney's Point Tender, Rovsing's Sign Present, Hernias Back: Present: Normal Inspection. No: CVA Tenderness Upper Extremity: Present: Normal Inspection. No: Cyanosis, Edema Lower Extremity: Present: Normal Inspection. No: Edema Neurological: Present: GCS=15, CN II-XII Intact, Speech Normal, Motor Func Grossly Intact, Normal Sensory Function, Normal Cerebellar Funct, Gait Normal Skin: Present: Warm, Dry, Normal Color. No: Rashes Psychiatric: Present: Alert, Oriented x 3, Normal Insight, Normal Concentration Medical Decision Making ED Course and Treatment: 02/15/18 01:45 Re-evaluation. Patient feels better. Discussed results and plan with patient who expresses understanding. All questions answered and there is agreement with the plan to discharge home with instructions. Patient stable for discharge. Return if symptoms persist or worsen. Abdomen is soft, nt/nd. Patient was recommended to stop abusing alcohol. Re-evaluation Time: 01:45 Reassessment Condition: Re-examined, Improved - Lab Interpretations Lab Results: 02/14/18 22:20 02/14/18 22:20 Lab Results 02/14/18 22:20: Sodium 149 H, Potassium 3.2 L, Chloride 106, Carbon Dioxide 33, Anion Gap 13, BUN 2 L, Creatinine 0.5 L, Est GFR ( Amer) > 60, Est GFR ( Non-Af Amer) > 60, Random Glucose 121 H, Calcium 8.5, Total Bilirubin 1.0, AST 311 H D, ALT 112 H, Alkaline Phosphatase 185 H D, Lactate Dehydrogenase 1081 H, Total Protein 6.7, Albumin 3.6, Globulin 3.1, Albumin/Globulin Ratio 1.1, Lipase < 10 L 02/14/18 22:20: WBC 5.3, RBC 2.99 L, Hgb 9.6 L, Hct 28.8 L, MCV 96.3, MCH 32.1, MCHC 33.3, RDW 18.0 H, Plt Count 108 L, MPV 9.9, Gran % 43.9 L, Lymph % (Auto) 49.1 H, [place] % (Auto) 4.9, Eos % (Auto) 1.7, Baso % (Auto) 0.4, Gran # 2.32, Lymph # (Auto) 2.6, [place] # (Auto) 0.3, Eos # (Auto) 0.1, Baso # (Auto) 0.02 Interpretation: No sign. chg./baseline - Medication Orders Current Medication Orders: Discontinued Medications Multivitamins/Vitamin C 10 ml/Thiamine HCl 100 mg/ Folic Acid 1 mg/ Sodium Chloride 1,011.2 mls @ 1,000 mls/hr IV .[id number] ONE Stop: 02/15/18 00:30 Last Admin: 02/14/18 23:52 Dose: 1,000 mls/hr eMAR Start Stop Document 02/14/18 23:52 OCS (Rec: 02/14/18 23:53 OCS [id number]) Intravenous Solution Start Date 02/14/18 Start Time 23:52 End Date 02/15/18 End time 00:53 Total Infusion Time 61 Potassium Chloride (K-Dur 20 Meq Er Tab) 40 meq PO STAT STA Stop: 02/14/18 23:27 Last Admin: 02/14/18 23:53 Dose: 40 meq Disposition/Present on Arrival - Present on Arrival Any Indicators Present on Arrival: No History of DVT/PE: No History of Uncontrolled Diabetes: No Urinary Catheter: No History of Decub. Ulcer: No History Surgical Site Infection Following: None - Disposition Have Diagnosis and Disposition been Completed?: Yes Diagnosis: Alcohol abuse, Nonspecific abdominal pain Disposition: HOME/ ROUTINE Disposition Time: 01:47 Patient Plan: Discharge Condition: GOOD Discharge Instructions (ExitCare): Alcohol Abuse and Alcoholism (DC) Additional Instructions: Call private doctor or clinic for follow up visit. Stop abusing alcohol. Have well balance diet. Return to emergency if symptoms worsen. Prescriptions: Famotidine [Pepcid] 40 mg PO DAILY #10 tablet Referrals: Juli Cr MD [Staff Provider] - Follow up with primary [facility] [Outside] - Follow up with primary Alcoholics Anonymous [Outside] - Follow up with primary Forms: [place] (Romanian)
[2018-02-14 22:48] LABS: ALB/GLOB RATIO 1.1 (1.1-1.8); ALBUMIN 3.6 g/dL (3.0-4.8); ALT/SGPT 112 U/L (7-56); AST/SGOT 311 U/L (17-59); BLOOD UREA NITROGEN 2 mg/dL (7-21); CALCIUM 8.5 mg/dL (8.4-10.5); GFR AFRICAN-AMERICAN > 60; GFR NON-AFRICAN AMERICAN > 60; LIPASE < 10 U/L (23-300)
[2018-02-14 23:03] LABS: BASO # 0.02 K/mm3 (0.0-2.0); BASO % 0.4 % (0.0-3.0); EOS # 0.1 (0.0-0.7); EOS % 1.7 % (1.5-5.0); GRAN # 2.32 (1.4-6.5); GRAN % 43.9 % (50.0-68.0); HEMOGLOBIN 9.6 g/dL (14.0-18.0); LYMPH # 2.6 (1.2-3.4); LYMPH % 49.1 % (22.0-35.0); MEAN CELL VOLUME 96.3 fl (80.0-105.0); MEAN CORPUSCULAR HEMOGLOBIN 32.1 pg (25.0-35.0); MEAN CORPUSCULAR HGB CONC 33.3 g/dl (31.0-37.0); MEAN PLATELET VOLUME 9.9 fl (7.0-11.0); MONO # 0.3 (0.1-0.6); MONO % 4.9 % (1.0-6.0); RBC 2.99 10^6/uL (3.5-6.1); WHITE BLOOD COUNT 5.3 10^3/ul (4.5-11.0)
[2018-02-14] MEDS ORDERED: Sodium Chloride 0.9% 1,000 ML IV STA (23:25)
[2018-02-14] MEDS ORDERED: Potassium Chloride 20 mEq ER Tab PO STA (23:26)
[2018-02-14] MEDS ORDERED: Multivitamin (MVI) 10 ML, Thiamine 100 MG, Folic Acid 1 MG in Sodium Chloride 0.9% 1,00... IV ONE (23:30)
[2018-02-15 01:12] VITALS: BP 127/87; PULSE 85; RESP 18; O2SAT 99
== END 2018-02-15 02:53 | disposition home or self-care (01) ==
LOC: ED 21:29
DX: F10.10 Alcohol abuse, uncomplicated (principal); R10.9 Unspecified abdominal pain; K85.90 Acute pancreatitis without necrosis or infection, unspecified
CPT/HCPCS: 80053; 83615; 83690; 85025; 96360; 99283; J3411; J7030

== ENCOUNTER 2018-02-19 17:46 | Emergency (ER) | payer MEDICAID ==
[2018-02-19 17:46] VITALS: BMI 22.2
[2018-02-19 17:58] VITALS: RESP 18
--- NOTE | 2018-02-19 18:12 | ED PDOC ---
Arrival/HPI - General Time Seen by Provider: 02/19/18 18:08 Historian: Patient - History of Present Illness Narrative History of Present Illness (Text): 02/19/18 18:09 This 42 year old male, whose past medical history includes alcohol abuse, hypertension, gastritis and pancreatitis, presents to the emergency department for alcohol intoxication. Patient admits to drinking alcohol earlier today. Patient is homeless and requesting a place to rest for the night. Patient denies any vomiting, diarrhea, fever, chills or any other complaints at this time. Patient stated he was drinking ukn amount of alcohol. Denies taking "pills" Time/Duration: Other (see hpi) Context: Home Past Medical History - Provider Review Nursing Documentation Reviewed: Yes - Past History Past History: No Previous - Infectious Disease Hx of Infectious Diseases: None - Tetanus Immunization Tetanus Immunization: Unknown - Past Medical History Past Medical History: No Previous - Cardiac Hx Cardiac Disorders: Yes Hx Hypertension: Yes - Pulmonary Hx Respiratory Disorders: No - Neurological Hx Neurological Disorder: No - HEENT Hx HEENT Disorder: No - Renal Hx Renal Disorder: No - Endocrine/Metabolic Hx Endocrine Disorders: No - Hematological/Oncological Hx Blood Disorders: No - Integumentary Hx Dermatological Disorder: No - Musculoskeletal/Rheumatological Hx Musculoskeletal Disorders: No - Gastrointestinal Hx Gastrointestinal Disorders: Yes Hx Gastroesophageal Reflux: Yes Hx Pancreatitis: Yes - Genitourinary/Gynecological Hx Genitourinary Disorders: No Hx Sexually Transmitted Diseases: No - Psychiatric Hx Psychophysiologic Disorder: No Hx Substance Use: No Other/Comment: alcohol abuse - Past Surgical History Past Surgical History: No Previous - Surgical History Hx Amputation: No Hx Appendectomy: No Hx Cardiac Catheterization: No Hx Cholecystectomy: No Hx Coronary Stent: No Hx Gastric Bypass Surgery: No Hx Hysterectomy: No Hx Joint Replacement: No Hx Kidney Transplant: No Hx Liver Transplant: No Hx Mastectomy: No Hx Musculoskeletal Surgery: No Hx Open Heart Surgery: No Hx Orthopedic Surgery: No Hx Splenectomy: No Hx Valve Replacement: No - Anesthesia Hx Anesthesia: No Hx Anesthesia Reactions: No Hx Malignant Hyperthermia: No - Suicidal Assessment Feels Threatened In Home Enviroment: No Family/Social History - Physician Review Nursing Documentation Reviewed: Yes Family/Social History: Other (noncontributory) Smoking Status: Light Smoker < 10 Cigarettes Daily Hx Alcohol Use: Yes Amount per day: 24 Hx Substance Use: No Allergies/Home Meds Allergies/Adverse Reactions: Allergies No Known Allergies Allergy (Verified 02/14/18 21:49) Review of Systems - Review of Systems Systems not reviewed;Unavailable: Intoxicated Constitutional: Normal. absent: Fatigue, Weight Change, Fevers, Night Sweats Eyes: Normal ENT: Normal Respiratory: Normal. absent: SOB Cardiovascular: Normal Gastrointestinal: Normal. absent: Abdominal Pain, Nausea, Vomiting Genitourinary Male: Normal Musculoskeletal: Normal Skin: Normal Neurological: Normal Endocrine: Normal Hemo/Lymphatic: Normal Psychiatric: Normal. absent: Suicidal Ideation Physical Exam Vital Signs Temp Pulse Resp BP Pulse Ox 02/19/18 22:50 98.7 F 63 18 144/87 100 02/19/18 17:58 98.4 F 82 18 139/75 99 Temperature: Afebrile Blood Pressure: Normal Pulse: Regular Respiratory Rate: Normal Appearance: Positive for: Well-Appearing, Non-Toxic, Comfortable Pain Distress: None Mental Status: Positive for: Alert and Oriented X 3 - Systems Exam Head: Present: Atraumatic, Normocephalic, Other (No raccoon sign. No mauricio sign) Pupils: Present: PERRL Extroacular Muscles: Present: EOMI Conjunctiva: Present: Normal Mouth: Present: Moist Mucous Membranes Neck: Present: Normal Range of Motion Respiratory/Chest: Present: Clear to Auscultation, Good Air Exchange. No: Respiratory Distress, Accessory Muscle Use, Wheezes, Decreased Breath Sounds, Rales, Retracting, Rhonchi, Tachypneic Cardiovascular: Present: Regular Rate and Rhythm, Normal S1, S2. No: Murmurs Abdomen: Present: Normal Bowel Sounds. No: Tenderness, Distention, Peritoneal Signs, Rebound, Guarding Upper Extremity: Present: Normal Inspection, Normal ROM, NORMAL PULSES Lower Extremity: Present: Normal Inspection, NORMAL PULSES, Normal ROM Neurological: Present: GCS=15, CN II-XII Intact, Speech Normal, Motor Func Grossly Intact, Normal Sensory Function, Normal Cerebellar Funct, Gait Normal, Memory Normal Skin: Present: Warm, Dry, Normal Color. No: Rashes Psychiatric: Present: Alert, Oriented x 3, Normal Insight, Normal Concentration Medical Decision Making ED Course and Treatment: 02/19/18 18:13 Alcohol intoxication observation revaluation 02/20/18 00:59 Re-evaluation. Patient feels better. Discussed results and plan with patient who expresses understanding. All questions answered and there is agreement with the plan to discharge home with instructions. Patient stable for discharge. Return if symptoms persist or worsen. Patient has a normal speech, and gait. Patient is AAO x 3. Patient feels better and he wishes to be discharge home. Re-evaluation Time: 01:02 Reassessment Condition: Re-examined, Improved Disposition/Present on Arrival - Present on Arrival Any Indicators Present on Arrival: No History of DVT/PE: No History of Uncontrolled Diabetes: No Urinary Catheter: No History of Decub. Ulcer: No History Surgical Site Infection Following: None - Disposition Have Diagnosis and Disposition been Completed?: Yes Diagnosis: Alcohol abuse Disposition: HOME/ ROUTINE Disposition Time: 01:02 Patient Plan: Discharge Condition: GOOD Discharge Instructions (ExitCare): Alcohol Abuse and Alcoholism (DC) Additional Instructions: Call private doctor for follow up visit in 1--2 days. Drink enough fluids and rest. Stop drinking alcohol. Consider AAA group help. Return to emergency if symptoms arise Referrals: [facility] [Outside] - Follow up with primary Alcoholics Anonymous [Outside] - Follow up with primary
[2018-02-19 22:50] VITALS: PULSE 63
[2018-02-20 01:32] VITALS: BP 154/62; TEMP 98.6; O2SAT 97
== END 2018-02-20 01:33 | disposition home or self-care (01) ==
LOC: ED 17:46
DX: F10.10 Alcohol abuse, uncomplicated (principal)

== ENCOUNTER 2018-02-23 00:21 | Emergency (ER) | payer MEDICAID ==
[2018-02-23 00:21] VITALS: BMI 22.2
[2018-02-23 01:37] VITALS: BP 135/75; PULSE 75; RESP 18; TEMP 97.8; O2SAT 100
--- NOTE | 2018-02-23 01:39 | ED PDOC ---
Arrival/HPI - General Chief Complaint: Male Genitourinary Time Seen by Provider: 02/23/18 01:20 Historian: Patient - History of Present Illness Narrative History of Present Illness (Text): 02/23/18 01:28 42 year old male, whose past medical history includes alcohol abuse, hypertension, gastritis and pancreatitis, presents to the emergency department for evaluation and "wants to know if my kidneys are okay". Patient has been seen multiple time for bed seeking. Patient's most recent blood work shows negative Creatinine on 02/14/18. Advised patient that kidneys are okay and is cleared for discharged. Patient denies any fever, chills, chest pain, shortness of breath, nausea, vomiting, diarrhea, urinary symptoms, back pain, neck pain, headache, dizziness, or any other complaints. pt sleeping in nad in er. 02/23/18 04:39 Symptom Onset: Gradual Activities at Onset: Light Context: Home Past Medical History - Provider Review Nursing Documentation Reviewed: Yes - Past History Past History: No Previous - Infectious Disease Hx of Infectious Diseases: None - Tetanus Immunization Tetanus Immunization: Unknown - Past Medical History Past Medical History: No Previous - Cardiac Hx Cardiac Disorders: Yes Hx Hypertension: Yes - Pulmonary Hx Respiratory Disorders: No - Neurological Hx Neurological Disorder: No - HEENT Hx HEENT Disorder: No - Renal Hx Renal Disorder: No - Endocrine/Metabolic Hx Endocrine Disorders: No - Hematological/Oncological Hx Blood Disorders: No - Integumentary Hx Dermatological Disorder: No - Musculoskeletal/Rheumatological Hx Musculoskeletal Disorders: No - Gastrointestinal Hx Gastrointestinal Disorders: Yes Hx Gastroesophageal Reflux: Yes Hx Pancreatitis: Yes - Genitourinary/Gynecological Hx Genitourinary Disorders: No Hx Sexually Transmitted Diseases: No - Psychiatric Hx Psychophysiologic Disorder: No Hx Substance Use: No Other/Comment: alcohol abuse - Past Surgical History Past Surgical History: No Previous - Surgical History Hx Amputation: No Hx Appendectomy: No Hx Cardiac Catheterization: No Hx Cholecystectomy: No Hx Coronary Stent: No Hx Gastric Bypass Surgery: No Hx Hysterectomy: No Hx Joint Replacement: No Hx Kidney Transplant: No Hx Liver Transplant: No Hx Mastectomy: No Hx Musculoskeletal Surgery: No Hx Open Heart Surgery: No Hx Orthopedic Surgery: No Hx Splenectomy: No Hx Valve Replacement: No - Anesthesia Hx Anesthesia: No Hx Anesthesia Reactions: No Hx Malignant Hyperthermia: No - Suicidal Assessment Feels Threatened In Home Enviroment: No Family/Social History - Physician Review Nursing Documentation Reviewed: Yes Family/Social History: No Known Family HX Smoking Status: Light Smoker < 10 Cigarettes Daily Hx Alcohol Use: Yes Amount per day: 24 Hx Substance Use: No Allergies/Home Meds Allergies/Adverse Reactions: Allergies No Known Allergies Allergy (Verified 02/14/18 21:49) Review of Systems - Physician Review All systems were reviewed & negative as marked: Yes - Review of Systems Constitutional: absent: Fevers, Other (Chills) Respiratory: absent: SOB Cardiovascular: absent: Chest Pain Gastrointestinal: Other ("check if kidneys are okay"). absent: Nausea, Vomiting , Appetite Changes Musculoskeletal: absent: Back Pain, Neck Pain Neurological: absent: Headache, Dizziness Physical Exam Vital Signs Reviewed: Yes Vital Signs Temp Pulse Resp BP Pulse Ox 02/23/18 01:00 97.8 F 75 18 135/75 100 Temperature: Afebrile Blood Pressure: Normal Pulse: Regular Respiratory Rate: Normal Appearance: Positive for: Well-Appearing, Non-Toxic, Comfortable Pain Distress: None Mental Status: Positive for: Alert and Oriented X 3 - Systems Exam Head: Present: Atraumatic, Normocephalic Pupils: Present: PERRL Extroacular Muscles: Present: EOMI Conjunctiva: Present: Normal Mouth: Present: Moist Mucous Membranes Neck: Present: Normal Range of Motion Respiratory/Chest: Present: Clear to Auscultation, Good Air Exchange. No: Respiratory Distress, Accessory Muscle Use Cardiovascular: Present: Regular Rate and Rhythm, Normal S1, S2. No: Murmurs Abdomen: No: Tenderness, Distention, Peritoneal Signs Back: Present: Normal Inspection Upper Extremity: Present: Normal Inspection. No: Cyanosis, Edema Lower Extremity: Present: Normal Inspection. No: Edema Neurological: Present: GCS=15, CN II-XII Intact, Speech Normal Skin: Present: Warm, Dry, Normal Color. No: Rashes Psychiatric: Present: Alert, Oriented x 3, Normal Insight, Normal Concentration Medical Decision Making ED Course and Treatment: 02/23/18 01:28 Impression: 42 year old male presents for evaluation and "wants to know if my kidneys are okay". Plan: -- Reassess and disposition Prior Visits: Notes and results from previous visits were reviewed. Reviewed blood work on . Progress Notes: Patient's must recent blood work shows negative Creatinine on 02/14/18. Advised patient that kidney's are okay and is cleared for discharged. On re-evaluation, Patient is in no acute distress. I have discussed the results and plan with the patient, who expresses understanding. Patient in agreement with plan to be discharged home. Patient is stable for discharge. Patient was instructed to follow up with physician or return if symptoms worsen or new concerning symptoms arise. - Scribe Statement The provider has reviewed the documentation as recorded by the Becca Molina Provider Scribe Attestation: All medical record entries made by the Scribe were at my direction and personally dictated by me. I have reviewed the chart and agree that the record accurately reflects my personal performance of the history, physical exam, medical decision making, and the department course for this patient. I have also personally directed, reviewed, and agree with the discharge instructions and disposition. Disposition/Present on Arrival - Present on Arrival Any Indicators Present on Arrival: No History of DVT/PE: No History of Uncontrolled Diabetes: No Urinary Catheter: No History of Decub. Ulcer: No History Surgical Site Infection Following: None - Disposition Have Diagnosis and Disposition been Completed?: Yes Diagnosis: Malingering Disposition: HOME/ ROUTINE Disposition Time: 01:00 Condition: STABLE Additional Instructions: return to er with worsening symptoms or concerns. Referrals: [facility] [place] [Outside] - Follow up with primary Forms: [employer] (Nepali)
== END 2018-02-23 01:45 | disposition home or self-care (01) ==
LOC: ED 00:21
DX: Z76.5 Malingerer [conscious simulation] (principal); I10 Essential (primary) hypertension; F17.210 Nicotine dependence, cigarettes, uncomplicated

== ENCOUNTER 2018-02-25 00:01 | Emergency (ER) | payer MEDICAID ==
[2018-02-25 00:04] VITALS: BMI 22.2
== END 2018-02-25 00:25 | disposition left against medical advice (07) ==
LOC: ED 00:01
DX: Z02.89 Encounter for other administrative examinations (principal); R10.9 Unspecified abdominal pain

== ENCOUNTER 2018-04-05 13:33 | Emergency (ER) | payer SELFPAY ==
[2018-04-05 13:50] VITALS: RESP 18
[2018-04-05 14:12] LABS: BASO # 0.02 K/mm3 (0.0-2.0); BASO % 0.3 % (0.0-3.0); EOS # 0.1 (0.0-0.7); GRAN # 3.5 (1.4-6.5); GRAN % 61.1 % (50.0-68.0); HEMOGLOBIN 11.1 g/dL (14.0-18.0); LYMPH # 1.9 (1.2-3.4); LYMPH % 33.1 % (22.0-35.0); MEAN CELL VOLUME 103.9 fl (80.0-105.0); MEAN CORPUSCULAR HEMOGLOBIN 33.6 pg (25.0-35.0); MEAN CORPUSCULAR HGB CONC 32.4 g/dl (31.0-37.0); MEAN PLATELET VOLUME 9.5 fl (7.0-11.0); MONO # 0.3 (0.1-0.6); MONO % 4.5 % (1.0-6.0); RBC 3.3 10^6/uL (3.5-6.1); RED CELL DISTRIBUTION WIDTH 15.3 % (11.5-14.5); WHITE BLOOD COUNT 5.7 10^3/ul (4.5-11.0)
[2018-04-05 14:19] LABS: ACETAMINOPHEN < 10.0 ug/ml (10.0-20.0); SALICYLATE < 1 mg/dL (2.0-20.0)
[2018-04-05 14:35] LABS: ALBUMIN 3.2 g/dL (3.0-4.8); ALT/SGPT 41 U/L (7-56); AST/SGOT 114 U/L (17-59); BLOOD UREA NITROGEN 5 mg/dL (7-21); CALCIUM 7.8 mg/dL (8.4-10.5); GFR NON-AFRICAN AMERICAN > 60
[2018-04-05] MEDS ORDERED: Potassium Chloride 40 mEq/30 ml LIQ UD PO STA (15:16)
[2018-04-05] MEDS ORDERED: Magnesium Sulfate 1 gm in D5W 1 GM/100 ML BAG IVPB ONE (15:16)
--- NOTE | 2018-04-05 17:11 | CARD ---
APPROVED REPORT Date of service: 04/05/2018 EKG Measurement Heart [id number] <Conclusion> Normal sinus rhythm Minimal voltage criteria for LVH, may be normal variant Prolonged QT Abnormal ECG
--- NOTE | 2018-04-05 17:29 | ED PDOC ---
Arrival/HPI - General Chief Complaint: Substance Abuse Time Seen by Provider: 04/05/18 13:37 Historian: Patient - History of Present Illness Narrative History of Present Illness (Text): 42 y/o male w/ pmhx of polysubstance abuse (etoh , opiate among other substances ) presents bibems s/p admitttedly snorting 2 bags of heroin and using drinking alcohol with his significant other, and developing relative obtundation and depressed respirations, ems nebulized 2 mg Narcan en route and pt arrived somnolent and lethargic but protecting airway reflexes, and able to rouse to answer questions albeit with waxing /waning mental status. Pt. denies any si/ hi/ah/vh. ROS (+) chronic post-prandial pain occasional dark stools. 04/05/18 17:18 Symptom Onset: Sudden Symptom Course: Worsening Past Medical History - Provider Review Nursing Documentation Reviewed: Yes - Past History Past History: No Previous - Infectious Disease Hx of Infectious Diseases: None - Tetanus Immunization Tetanus Immunization: Unknown - Past Medical History Past Medical History: No Previous - Cardiac Hx Cardiac Disorders: Yes Hx Hypertension: Yes - Pulmonary Hx Respiratory Disorders: No - Neurological Hx Neurological Disorder: No - HEENT Hx HEENT Disorder: No - Renal Hx Renal Disorder: No - Endocrine/Metabolic Hx Endocrine Disorders: No - Hematological/Oncological Hx Blood Disorders: No - Integumentary Hx Dermatological Disorder: No - Musculoskeletal/Rheumatological Hx Musculoskeletal Disorders: No - Gastrointestinal Hx Gastrointestinal Disorders: Yes Hx Gastroesophageal Reflux: Yes Hx Pancreatitis: Yes - Genitourinary/Gynecological Hx Genitourinary Disorders: No Hx Sexually Transmitted Diseases: No - Psychiatric Hx Psychophysiologic Disorder: No Hx Substance Use: Yes Other/Comment: alcohol abuse - Past Surgical History Past Surgical History: No Previous - Surgical History Hx Amputation: No Hx Appendectomy: No Hx Cardiac Catheterization: No Hx Cholecystectomy: No Hx Coronary Stent: No Hx Gastric Bypass Surgery: No Hx Hysterectomy: No Hx Joint Replacement: No Hx Kidney Transplant: No Hx Liver Transplant: No Hx Mastectomy: No Hx Musculoskeletal Surgery: No Hx Open Heart Surgery: No Hx Orthopedic Surgery: No Hx Splenectomy: No Hx Valve Replacement: No - Anesthesia Hx Anesthesia: No Hx Anesthesia Reactions: No Hx Malignant Hyperthermia: No - Suicidal Assessment Feels Threatened In Home Enviroment: No Family/Social History - Physician Review Nursing Documentation Reviewed: Yes Family/Social History: No Known Family HX Smoking Status: Light Smoker < 10 Cigarettes Daily Hx Alcohol Use: Yes Amount per day: 24 Hx Substance Use: Yes Substance used: heroin Allergies/Home Meds Allergies/Adverse Reactions: Allergies No Known Allergies Allergy (Verified 02/14/18 21:49) Home Medications: Home Meds Medication Instructions Recorded Confirmed No Known Home Med 04/05/18 04/05/18 Review of Systems - Physician Review All systems were reviewed & negative as marked: Yes - Review of Systems Constitutional: Normal Eyes: Normal ENT: Normal Respiratory: Normal Cardiovascular: Normal Gastrointestinal: Abdominal Pain Genitourinary Male: Normal Musculoskeletal: Normal Skin: Normal Neurological: Normal Endocrine: Normal Hemo/Lymphatic: Normal Psychiatric: Normal Physical Exam Vital Signs Reviewed: Yes Vital Signs Temp Pulse Resp BP Pulse Ox 04/05/18 15:34 64 18 135/78 100 04/05/18 13:48 98.0 F 62 18 138/89 100 Temperature: Afebrile Blood Pressure: Normal Pulse: Regular Respiratory Rate: Normal Appearance: Positive for: Well-Appearing, Non-Toxic, Comfortable Pain Distress: None Mental Status: Positive for: Alert and Oriented X 3 - Systems Exam Head: Present: Atraumatic, Normocephalic, Other (+ ETOB ) Pupils: Present: PERRL Extroacular Muscles: Present: EOMI Conjunctiva: Present: Normal Mouth: Present: Moist Mucous Membranes Neck: Present: Normal Range of Motion Respiratory/Chest: Present: Clear to Auscultation, Good Air Exchange. No: Respiratory Distress, Accessory Muscle Use Cardiovascular: Present: Regular Rate and Rhythm, Normal S1, S2. No: Murmurs Abdomen: No: Tenderness, Distention, Peritoneal Signs Back: Present: Normal Inspection Upper Extremity: Present: Normal Inspection. No: Cyanosis, Edema Lower Extremity: Present: Normal Inspection. No: Edema Neurological: Present: GCS=15, CN II-XII Intact, Speech Normal, Motor Func Grossly Intact, Normal Sensory Function, Normal Cerebellar Funct, Norm Deep Tendon Reflexes, Gait Normal Skin: Present: Warm, Dry, Normal Color. No: Rashes Psychiatric: Present: Alert, Oriented x 3, Normal Insight, Normal Concentration Medical Decision Making - Lab Interpretations Lab Results: 04/05/18 14:00 04/05/18 18:10 Lab Results 04/05/18 18:10: Sodium 144, Potassium 3.8, Chloride 106, Carbon Dioxide 31, Anion Gap 11, BUN 4 L, Creatinine 0.6 L, Est GFR ( Amer) > 60, Est GFR ( Non-Af Amer) > 60, Random Glucose 125 H, Calcium 7.6 L, Total Bilirubin 0.5, AST 93 H, ALT 43, Alkaline Phosphatase 185 H, Total Protein 6.3, Albumin 3.1, Globulin 3.2, Albumin/Globulin Ratio 1.0 L 04/05/18 17:40: Urine Opiates Screen Positive H, Urine Methadone Screen Negative , Ur Barbiturates Screen Negative, Ur Phencyclidine Scrn Negative, Ur Amphetamines Screen Negative, U Benzodiazepines Scrn Negative, U Oth Cocaine Metabols Negative, U Cannabinoids Screen Negative 04/05/18 17:40: Urine Color Light yellow, Urine Appearance Clear, Urine pH 7.0, Ur Specific [place] 1.015, Urine Protein 30 H, Urine Glucose (UA) Negative, Urine Ketones Negative, Urine Blood Negative, Urine Nitrate Negative, Urine Bilirubin Negative, Urine Urobilinogen 0.2, Ur Leukocyte Esterase Negative, Urine RBC Negative, Urine WBC Negative, Ur Epithelial Cells 0 - 2, Urine Bacteria Neg 04/05/18 15:50: Lipase < 10 L 04/05/18 14:00: Salicylates < 1 L, Acetaminophen < 10.0 L 04/05/18 14:00: Sodium 145, Potassium 2.6 L*, Chloride 104, Carbon Dioxide 31, Anion Gap 12, BUN 5 L, Creatinine 0.7 L, Est GFR ( Amer) > 60, Est GFR ( Non-Af Amer) > 60, Random Glucose 201 H, Calcium 7.8 L, Magnesium 1.7, Total Bilirubin 0.5, AST 114 H D, ALT 41, Alkaline Phosphatase 184 H, Total Protein 6.3, Albumin 3.2, Globulin 3.1, Albumin/Globulin Ratio 1.0 L 04/05/18 14:00: WBC 5.7, RBC 3.30 L, Hgb 11.1 L, Hct 34.3 L, MCV 103.9 D, MCH 33.6, MCHC 32.4, RDW 15.3 H, Plt Count 149, MPV 9.5, Gran % 61.1, Lymph % (Auto ) 33.1, [place] % (Auto) 4.5, Eos % (Auto) 1.0 L, Baso % (Auto) 0.3, Gran # 3.50, Lymph # (Auto) 1.9, [place] # (Auto) 0.3, Eos # (Auto) 0.1, Baso # (Auto) 0.02 04/05/18 13:37: Alcohol, Quantitative 258 H - Medication Orders Current Medication Orders: Potassium Chloride (Potassium Chloride 20 Meq/100 Ml) 20 meq in 100 mls @ 50 mls/hr IVPB Q2H BRUCE Stop: 04/05/18 19:14 Last Admin: 04/05/18 16:20 Dose: 50 mls/hr eMAR Start Stop Document 04/05/18 16:20 EWO (Rec: 04/05/18 16:20 EWO [id number]) Intravenous Solution Start Date 04/05/18 Start Time 16:20 End Date 04/05/18 End time 17:20 Total Infusion Time 60 Discontinued Medications Magnesium Sulfate/Dextrose (Magnesium Sulfate 1 Gm/100 Ml D5w) 1 gm in 100 mls @ 100 mls/hr IVPB ONCE ONE Stop: 04/05/18 16:15 Last Admin: 04/05/18 15:47 Dose: 100 mls/hr eMAR Start Stop Document 04/05/18 15:47 EWO (Rec: 04/05/18 15:47 EWO [id number]) Intravenous Solution Start Date 04/05/18 Start Time 15:47 End Date 04/05/18 End time 16:47 Total Infusion Time 60 Potassium Chloride (Potassium Chloride Oral Soln) 40 meq PO STAT STA Stop: 04/05/18 15:17 Last Admin: 04/05/18 15:47 Dose: 40 meq Disposition/Present on Arrival - Present on Arrival Any Indicators Present on Arrival: No History of DVT/PE: No History of Uncontrolled Diabetes: No Urinary Catheter: No History of Decub. Ulcer: No History Surgical Site Infection Following: None - Disposition Have Diagnosis and Disposition been Completed?: Yes Diagnosis: Heroin overdose, Alcohol intoxication, Hypokalemia Disposition: HOME/ ROUTINE Disposition Time: 18:55 Patient Plan: Discharge Condition: IMPROVED Discharge Instructions (ExitCare): Hypokalemia, Drug Abuse and Drug Addiction ( [place]), High Potassium Diet, Alcohol Abuse and Alcoholism ([place]) Print Language: MONGOLIAN Additional Instructions: Please refrain from abusing drugs as it will run yourr life and health and your reputation. Forms: [employer] (Nigerian)
[2018-04-05 17:54] LABS: URINE BILIRUBIN NEGATIVE (NEGATIVE); URINE BLOOD NEGATIVE (NEGATIVE); URINE GLUCOSE (UA) NEGATIVE (NEGATIVE); URINE LEUKOCYTE ESTERASE NEGATIVE Leu/uL (NEGATIVE); URINE PROTEIN 30 mg/dL (<30 mg/dL); URINE UROBILINOGEN 0.2 E.U./dL (<1 E.U./dL)
[2018-04-05 17:56] LABS: URINE APPEARANCE CLEAR (CLEAR); URINE COLOR LIGHT YELLOW (YELLOW)
[2018-04-05 18:04] LABS: URINE BACTERIA NEG (NEG); URINE EPITHELIAL CELLS 0 - 2 /hpf (0-5); URINE RBC NEGATIVE /hpf (0-2); URINE WBC NEGATIVE /hpf (0-6)
[2018-04-05 18:11] LABS: BARBITURATES, UR NEGATIVE (NEGATIVE); BENZODIAZEPINES, UR NEGATIVE (NEGATIVE); OPIATES, UR POSITIVE (NEGATIVE); PHENCYCLIDINE, UR NEGATIVE (NEGATIVE)
[2018-04-05 18:28] LABS: ALBUMIN 3.1 g/dL (3.0-4.8); ALT/SGPT 43 U/L (7-56); AST/SGOT 93 U/L (17-59); BLOOD UREA NITROGEN 4 mg/dL (7-21); CALCIUM 7.6 mg/dL (8.4-10.5); GFR NON-AFRICAN AMERICAN > 60
[2018-04-05 19:02] VITALS: BMI 22.2
[2018-04-05 19:03] VITALS: TEMP 98.7
[2018-04-05 19:04] VITALS: BP 123/70; PULSE 79; O2SAT 99
== END 2018-04-05 19:03 | disposition home or self-care (01) ==
LOC: ED 13:33
DX: T40.1X1A Poisoning by heroin, accidental (unintentional), initial encounter (principal); Y92.9 Unspecified place or not applicable; F10.129 Alcohol abuse with intoxication, unspecified; Y90.8 Blood alcohol level of 240 mg/100 ml or more; E87.6 Hypokalemia
CPT/HCPCS: 80053; 81001; 83690; 83735; 85025; 93005; 96361; 96365; 99284; G0480; J3475; J3480

== ENCOUNTER 2018-04-14 22:49 | Emergency (ER) | payer SELFPAY ==
[2018-04-14 23:34] VITALS: BMI 22.4
[2018-04-14 23:38] VITALS: O2SAT 98
--- NOTE | 2018-04-14 23:55 | ED PDOC ---
Arrival/HPI - General Chief Complaint: Abdominal Pain Time Seen by Provider: 04/14/18 22:58 Historian: Patient - History of Present Illness Narrative History of Present Illness (Text): 04/14/18 23:55 Felix Glasgow is a 42 year old male, whose past medical history includes alcohol abuse, chronic gastritis, and homelessness, complaining of an upset stomach. Patient has no place to stay and admits to drinking alcohol tonight. Patient denies any fever, abdominal pain, nausea, vomiting, diarrhea, chest pain, shortness of breath, drug use, or any other complaints. Symptom Onset: Gradual Symptom Course: Unchanged Activities at Onset: Light Context: Home Past Medical History - Provider Review Nursing Documentation Reviewed: Yes - Past History Past History: No Previous - Infectious Disease Hx of Infectious Diseases: None - Tetanus Immunization Tetanus Immunization: Unknown - Past Medical History Past Medical History: No Previous - Cardiac Hx Cardiac Disorders: Yes Hx Hypertension: Yes - Pulmonary Hx Respiratory Disorders: No - Neurological Hx Neurological Disorder: No - HEENT Hx HEENT Disorder: No - Renal Hx Renal Disorder: No - Endocrine/Metabolic Hx Endocrine Disorders: No - Hematological/Oncological Hx Blood Disorders: No - Integumentary Hx Dermatological Disorder: No - Musculoskeletal/Rheumatological Hx Musculoskeletal Disorders: No - Gastrointestinal Hx Gastrointestinal Disorders: Yes Hx Gastroesophageal Reflux: Yes Hx Pancreatitis: Yes - Genitourinary/Gynecological Hx Genitourinary Disorders: No Hx Sexually Transmitted Diseases: No - Psychiatric Hx Psychophysiologic Disorder: No Hx Substance Use: Yes Other/Comment: alcohol abuse - Past Surgical History Past Surgical History: No Previous - Surgical History Hx Amputation: No Hx Appendectomy: No Hx Cardiac Catheterization: No Hx Cholecystectomy: No Hx Coronary Stent: No Hx Gastric Bypass Surgery: No Hx Hysterectomy: No Hx Joint Replacement: No Hx Kidney Transplant: No Hx Liver Transplant: No Hx Mastectomy: No Hx Musculoskeletal Surgery: No Hx Open Heart Surgery: No Hx Orthopedic Surgery: No Hx Splenectomy: No Hx Valve Replacement: No - Anesthesia Hx Anesthesia: No Hx Anesthesia Reactions: No Hx Malignant Hyperthermia: No - Suicidal Assessment Feels Threatened In Home Enviroment: No Family/Social History - Physician Review Nursing Documentation Reviewed: Yes Family/Social History: Unknown Family HX Smoking Status: Light Smoker < 10 Cigarettes Daily Hx Alcohol Use: Yes Amount per day: 24 Hx Substance Use: Yes Substance used: heroin Allergies/Home Meds Allergies/Adverse Reactions: Allergies No Known Allergies Allergy (Verified 04/14/18 23:37) Home Medications: Home Meds Medication Instructions Recorded Confirmed No Known Home Med 04/05/18 04/14/18 Review of Systems - Physician Review All systems were reviewed & negative as marked: Yes - Review of Systems Constitutional: Normal. absent: Fevers Eyes: Normal ENT: Normal Respiratory: Normal. absent: SOB, Cough Cardiovascular: Normal. absent: Chest Pain Gastrointestinal: Normal. absent: Abdominal Pain, Diarrhea, Nausea, Vomiting Genitourinary Male: Normal. absent: Dysuria, Frequency, Hematuria, Urinary O utput Changes Musculoskeletal: Normal. absent: Back Pain, Neck Pain Skin: Normal. absent: Rash Neurological: Normal. absent: Headache, Dizziness Endocrine: Normal Hemo/Lymphatic: Normal Psychiatric: Normal Physical Exam Vital Signs Reviewed: Yes Vital Signs Temp Pulse Resp BP Pulse Ox 04/14/18 23:37 98.0 F 51 L 19 145/82 98 Temperature: Afebrile Blood Pressure: Normal Pulse: Regular Respiratory Rate: Normal Appearance: Positive for: Well-Appearing, Non-Toxic, Comfortable Pain Distress: None Mental Status: Positive for: Alert and Oriented X 3 - Systems Exam Head: Present: Atraumatic, Normocephalic Pupils: Present: PERRL Extroacular Muscles: Present: EOMI Conjunctiva: Present: Normal Mouth: Present: Moist Mucous Membranes Neck: Present: Normal Range of Motion Respiratory/Chest: Present: Clear to Auscultation, Good Air Exchange. No: Respiratory Distress, Accessory Muscle Use Cardiovascular: Present: Regular Rate and Rhythm, Normal S1, S2. No: Murmurs Abdomen: No: Tenderness, Distention, Peritoneal Signs Back: Present: Normal Inspection Upper Extremity: Present: Normal Inspection. No: Cyanosis, Edema Lower Extremity: Present: Normal Inspection. No: Edema Neurological: Present: GCS=15, CN II-XII Intact, Speech Normal Skin: Present: Warm, Dry, Normal Color. No: Rashes Psychiatric: Present: Alert, Oriented x 3, Normal Insight, Normal Concentration Medical Decision Making ED Course and Treatment: 04/14/18 23:55 Impression: 42 year old male complaining of an upset stomach. Patient has no place to stay. Plan: -- Pepcid -- Reassess and disposition 04/15/18 02:10 On re-evaluation, patient is awake, alert, and in no acute distress. Ambulating with steady gait, clinically sober. Patient stable for discharge. Return if symptoms persist or worsen. - Medication Orders Current Medication Orders: Discontinued Medications Famotidine (Pepcid) 20 mg PO ONCE STA Stop: 04/14/18 23:59 Last Admin: 04/15/18 00:46 Dose: 20 mg - Scribe Statement The provider has reviewed the documentation as recorded by the Jeanetteibcassandra Zhou All medical record entries made by the Jeanetteibcassandra were at my direction and personally dictated by me. I have reviewed the chart and agree that the record accurately reflects my personal performance of the history, physical exam, medical decision making, and the department course for this patient. I have also personally directed, reviewed, and agree with the discharge instructions and disposition. Disposition/Present on Arrival - Present on Arrival Any Indicators Present on Arrival: No History of DVT/PE: No History of Uncontrolled Diabetes: No Urinary Catheter: No History of Decub. Ulcer: No History Surgical Site Infection Following: None - Disposition Have Diagnosis and Disposition been Completed?: Yes Diagnosis: Gastritis Disposition: HOME/ ROUTINE Disposition Time: 02:07 Patient Plan: Discharge Patient Problems: Current Active Problems Problem Status Onset Gastritis Acute Condition: GOOD Additional Instructions: Avoid alcohol use/follow up in clinic this week Referrals: [facility] [Outside] - Follow up with primary Juli Cr MD [Medical Doctor] - Follow up with primary Forms: [employer] (H[place]er)
[2018-04-15 06:31] VITALS: BP 160/80; PULSE 69; RESP 18; TEMP 98.7
== END 2018-04-15 04:21 | disposition home or self-care (01) ==
LOC: ED 22:49
DX: K29.70 Gastritis, unspecified, without bleeding (principal); F17.210 Nicotine dependence, cigarettes, uncomplicated; I10 Essential (primary) hypertension; Z59.0 Homelessness

== ENCOUNTER 2018-05-03 21:15 | Emergency (ER) | payer SELFPAY ==
[2018-05-03 21:30] VITALS: BMI 22.9
[2018-05-03 21:32] VITALS: RESP 18
--- NOTE | 2018-05-03 21:41 | ED PDOC ---
Arrival/HPI - General Historian: Patient - History of Present Illness Narrative History of Present Illness (Text): 05/03/18 21:45 Felix Robles is a 42 year old male, whose past medical history includes polysubstance abuse (alcohol and heroin), chronic gastritis, and homelessness, complaining of left sided chest pain. About 3 hours ago he started to feel an electrical shocking sensation located on the left side of his chest. It does not radiate. Patient admits to drinking multiple alcoholic beverages (four thaddeus) today. He vomited once earlier today prior to the chest pain. Patient denies any illicit drug use today. Denies fevers, chills, nausea, shortness of breath, abdominal pain, diaphoresis or vision changes. <Ashwin Nobles - Last Filed: 05/04/18 03:27> <João Rai - Last Filed: 05/04/18 06:47> - General Chief Complaint: Chest Pain Time Seen by Provider: 05/03/18 21:21 Past Medical History - Provider Review Nursing Documentation Reviewed: Yes - Past History Past History: No Previous - Infectious Disease Hx of Infectious Diseases: None - Tetanus Immunization Tetanus Immunization: Unknown - Past Medical History Past Medical History: No Previous - Cardiac Hx Cardiac Disorders: Yes Hx Hypertension: Yes - Pulmonary Hx Respiratory Disorders: No - Neurological Hx Neurological Disorder: No - HEENT Hx HEENT Disorder: No - Renal Hx Renal Disorder: No - Endocrine/Metabolic Hx Endocrine Disorders: No - Hematological/Oncological Hx Blood Disorders: No - Integumentary Hx Dermatological Disorder: No - Musculoskeletal/Rheumatological Hx Musculoskeletal Disorders: No - Gastrointestinal Hx Gastrointestinal Disorders: Yes Hx Gastroesophageal Reflux: Yes Hx Pancreatitis: Yes - Genitourinary/Gynecological Hx Genitourinary Disorders: No Hx Sexually Transmitted Diseases: No - Psychiatric Hx Psychophysiologic Disorder: No Hx Substance Use: Yes Other/Comment: alcohol abuse - Past Surgical History Past Surgical History: No Previous - Surgical History Hx Amputation: No Hx Appendectomy: No Hx Cardiac Catheterization: No Hx Cholecystectomy: No Hx Coronary Stent: No Hx Gastric Bypass Surgery: No Hx Hysterectomy: No Hx Joint Replacement: No Hx Kidney Transplant: No Hx Liver Transplant: No Hx Mastectomy: No Hx Musculoskeletal Surgery: No Hx Open Heart Surgery: No Hx Orthopedic Surgery: No Hx Splenectomy: No Hx Valve Replacement: No - Anesthesia Hx Anesthesia: No Hx Anesthesia Reactions: No Hx Malignant Hyperthermia: No - Suicidal Assessment Feels Threatened In Home Enviroment: No <Ashwin Nobles - Last Filed: 05/04/18 03:27> Family/Social History - Physician Review Nursing Documentation Reviewed: Yes Family/Social History: Unknown Family HX Smoking Status: Light Smoker < 10 Cigarettes Daily Hx Alcohol Use: Yes Amount per day: 24 Hx Substance Use: Yes Substance used: heroin <Ashwin Nobles - Last Filed: 05/04/18 03:27> Allergies/Home Meds <Ahswin Nobles - Last Filed: 05/04/18 03:27> <João Rai - Last Filed: 05/04/18 06:47> Allergies/Adverse Reactions: Allergies No Known Allergies Allergy (Verified 04/14/18 23:37) Home Medications: Home Meds Medication Instructions Recorded Confirmed RX: No Known Home Med 04/05/18 05/03/18 Review of Systems - Physician Review All systems were reviewed & negative as marked: Yes - Review of Systems Constitutional: Normal. absent: Fatigue, Fevers Eyes: Normal. absent: Vision Changes ENT: Normal. absent: Sore Throat Respiratory: Normal. absent: SOB, Wheezing Cardiovascular: Chest Pain (left sided). absent: Palpitations, Calf Pain, DAN, Syncope Gastrointestinal: Vomiting. absent: Abdominal Pain, Constipation, Diarrhea, Nausea Musculoskeletal: Normal Skin: Normal Neurological: Normal. absent: Headache, Dizziness Endocrine: Normal. absent: Diaphoresis Hemo/Lymphatic: Normal Psychiatric: Normal. absent: Anxiety <sAhwin Nobles - Last Filed: 05/04/18 03:27> Physical Exam Vital Signs Reviewed: Yes Vital Signs Temp Pulse Resp BP Pulse Ox 05/03/18 21:28 99 F 68 18 168/100 H 98 05/03/18 21:26 99 F 72 20 168/100 H 96 Temperature: Afebrile Blood Pressure: Hypertensive Pulse: Regular Respiratory Rate: Normal Appearance: Positive for: Well-Appearing, Non-Toxic, Comfortable Pain Distress: None Mental Status: Positive for: Alert and Oriented X 3 - Systems Exam Head: Present: Atraumatic, Normocephalic Extroacular Muscles: Present: EOMI Conjunctiva: Present: Normal Mouth: Present: Moist Mucous Membranes Nose (External): Present: Atraumatic Nose (Internal): Present: No Active Bleeding, Moist Neck: Present: Normal Range of Motion. No: JVD, Lymphadenopathy Respiratory/Chest: Present: Clear to Auscultation, Good Air Exchange, Tender to Palpation (left side). No: Respiratory Distress, Accessory Muscle Use, Wheezes, Rales, Retracting, Rhonchi, Tachypneic Cardiovascular: Present: Regular Rate and Rhythm, Normal S1, S2. No: Murmurs Abdomen: No: Tenderness, Distention, Peritoneal Signs Upper Extremity: Present: Normal Inspection, NORMAL PULSES. No: Cyanosis, Edema Lower Extremity: Present: Normal Inspection, NORMAL PULSES. No: Edema, CALF TENDERNESS Neurological: Present: GCS=15, CN II-XII Intact, Speech Normal Skin: Present: Warm, Dry, Normal Color. No: Rashes Lymphatic: No: Cervical Adenopathy Psychiatric: Present: Alert, Oriented x 3, Normal Insight, Normal Concentration <Ashwin Nobles - Last Filed: 05/04/18 03:27> Vital Signs Temp Pulse Resp BP Pulse Ox 05/03/18 21:28 99 F 68 18 168/100 H 98 05/03/18 21:26 99 F 72 20 168/100 H 96 <João Rai - Last Filed: 05/04/18 06:47> Medical Decision Making ED Course and Treatment: 05/03/18 22:08 Felix Robles is a 42 year old male, whose past medical history includes polysubstance abuse (alcohol and heroin), chronic gastritis, and homelessness, complaining of left sided chest pain for the past 3 hours. non-radiating, reproducible on exam EKG - Sinus Rancho @53bpm, normal axis, LVH, no acute ST segments or depressions. - similar to previous EKG on 04/05/18 Labs and CXR 05/03/18 23:18 Labs reviewed - Trop negative. - LFTs elevated but expected due to patient's extensive alcohol history. LFT elevations seen in past. Patient sleeping in bed. 05/04/18 00:37 Patient still sleeping on bed. 05/04/18 03:24 Patient to be discharged home. - Lab Interpretations I have reviewed the lab results: Yes - RAD Interpretation Narrative RAD Interpretations (Text): 05/03/18 23:07 CXR - no active disease. Mortar Mixer: ED Physician - EKG Interpretation EKG Interpretation (Text): 05/03/18 21:38 EKG - Sinus Rancho @53bpm, normal axis, LVH, no acute ST segments or depressions. - similar to previous EKG on 04/05/18 Interpreted by ED Physician: Yes Type: 12 lead EKG Comparison: Similar to previous EKG (on 04/05/18) <Ashwin Nobles - Last Filed: 05/04/18 03:27> ED Course and Treatment: Impression: Pt seen and evaluated with medical office manager. Aware and agree with HPI, clinical findings, plan, and management. Pt, whose past medical history includes substance abuse, presented for left-sided chest pain. Patient admits to drinking alcohol today. Plan: -- EKG -- Chest X-ray -- Labs, troponin -- Reassess and disposition - RAD Interpretation Radiology Orders: 05/03/18 21:59 CHEST PORTABLE [RAD] Stat <João Rai - Last Filed: 05/04/18 06:47> - PA / MEAT DRESSER / Resident Statement / has reviewed & agrees with the documentation as recorded. / has examined the patient and agrees with the treatment plan. <João Rai - Last Filed: 05/04/18 06:47> Disposition/Present on Arrival - Present on Arrival Any Indicators Present on Arrival: No History of DVT/PE: No History of Uncontrolled Diabetes: No Urinary Catheter: No History of Decub. Ulcer: No History Surgical Site Infection Following: None - Disposition Have Diagnosis and Disposition been Completed?: Yes Disposition Time: 03:26 Patient Plan: Discharge <Ashwin Nobles - Last Filed: 05/04/18 03:27> <João Rai - Last Filed: 05/04/18 06:47> - Disposition Diagnosis: Chest pain Disposition: HOME/ ROUTINE Condition: FAIR Discharge Instructions (ExitCare): Chest Pain (ED) Additional Instructions: FELIX ROBLES, thank you for letting us take care of you today. Your provider was João Rai MD and you were treated for CHEST PAIN. The emergency medical care you received today was directed at your acute symptoms. If you were prescribed any medication, please fill it and take as directed. It may take several days for your symptoms to resolve. Return to the Emergency Department if your symptoms worsen, do not improve, or if you have any other problems. Please contact your doctor or call one of the physicians/clinics you have been referred to that are listed on the Patient Visit Information form that is included in your discharge packet. Bring any paperwork you were given at discharge with you along with any medications you are taking to your follow up visit. Our treatment cannot replace ongoing medical care by a primary care provider outside of the emergency department. Thank you for allowing the [facility] team to be part of your care today. If you had an X-Ray or CT scan: A Radiologist will review the ED reading if any change in treatment is needed we will contact you. If you had a blood, urine, or wound culture: It will take several days for the results, if any change in treatment is needed we will contact you. If you had an STI test: It will take 48 hours for the results. Please call after 1 week if you have not heard back. Forms: [employer] (Khmer)
[2018-05-03 22:45] LABS: BASO # 0.04 K/mm3 (0.0-2.0); BASO % 1.2 % (0.0-3.0); EOS # 0.1 (0.0-0.7); GRAN # 1.39 (1.4-6.5); GRAN % 40.4 % (50.0-68.0); HEMOGLOBIN 11.8 g/dL (14.0-18.0); LYMPH # 1.7 (1.2-3.4); LYMPH % 49.4 % (22.0-35.0); MEAN CORPUSCULAR HGB CONC 33.6 g/dl (31.0-37.0); MEAN PLATELET VOLUME 9.9 fl (7.0-11.0); MONO # 0.2 (0.1-0.6); RBC 3.58 10^6/uL (3.5-6.1); RED CELL DISTRIBUTION WIDTH 14.4 % (11.5-14.5); WHITE BLOOD COUNT 3.4 10^3/ul (4.5-11.0)
[2018-05-03 23:00] LABS: ALB/GLOB RATIO 0.9 (1.1-1.8); ALBUMIN 3.2 g/dL (3.0-4.8); ALT/SGPT 79 U/L (7-56); AST/SGOT 287 U/L (17-59); BLOOD UREA NITROGEN 3 mg/dL (7-21); CALCIUM 8.5 mg/dL (8.4-10.5); GFR NON-AFRICAN AMERICAN > 60
[2018-05-03 23:08] LABS: TROPONIN I 0.02 ng/mL
[2018-05-04] MEDS ORDERED: Potassium Chloride 20 mEq ER Tab PO STA (03:25)
[2018-05-04 03:51] VITALS: BP 144/90; PULSE 78; TEMP 98.4; O2SAT 98
--- NOTE | 2018-05-04 12:54 | RAD ---
Date of service: 05/03/2018 HISTORY: chest pain COMPARISON: 07/02/2017 FINDINGS: LUNGS: No active pulmonary disease. PLEURA: No significant pleural effusion identified, no pneumothorax apparent. CARDIOVASCULAR: Normal. OSSEOUS STRUCTURES: No significant abnormalities. VISUALIZED UPPER ABDOMEN: Normal. OTHER FINDINGS: None. IMPRESSION: No active disease.
--- NOTE | 2018-05-04 15:19 | CARD ---
APPROVED REPORT Date of service: 05/03/2018 EKG Measurement Heart [id number] <Conclusion> Sinus bradycardia Voltage criteria for left ventricular hypertrophy Abnormal ECG
== END 2018-05-04 03:49 | disposition home or self-care (01) ==
LOC: ED 21:15
DX: R07.9 Chest pain, unspecified (principal); I10 Essential (primary) hypertension; K21.9 Gastro-esophageal reflux disease without esophagitis; F17.210 Nicotine dependence, cigarettes, uncomplicated

== ENCOUNTER 2018-05-09 16:06 | Inpatient (IN) | payer MEDICAID, OTHER ==
[2018-05-09 16:37] VITALS: BMI 22.2
[2018-05-09] MEDS ORDERED: Pantoprazole 80 MG in Sodium Chloride 0.9% 100 ML IV STA (16:43)
[2018-05-09] MEDS ORDERED: Sodium Chloride 0.9% 500 ML IV STA (16:43)
[2018-05-09] MEDS ORDERED: Multivitamin (MVI) 10 ML, Thiamine 100 MG, Folic Acid 1 MG in Sodium Chloride 0.9% 1,00... IV ONE (16:44)
--- NOTE | 2018-05-09 16:49 | ED PDOC ---
Arrival/HPI - General Chief Complaint: GI Problem Time Seen by Provider: 05/09/18 16:15 Historian: Patient, Spouse - History of Present Illness Time/Duration: Prior to Arrival Symptom Onset: Sudden Symptom Course: Unchanged Severity Level: Moderate Associated Symptoms (Text): 05/09/18 16:46 Well-known to the emergency Department staff. A homeless alcoholic who reports several episodes of vomiting blood today. He last drank some time last night. No chest pain palpitations or dyspnea. He reports he is dizzy and lightheaded. Past Medical History - Past History Past History: No Previous - Infectious Disease Hx of Infectious Diseases: None - Tetanus Immunization Tetanus Immunization: Unknown - Past Medical History Past Medical History: No Previous - Cardiac Hx Cardiac Disorders: Yes Hx Hypertension: Yes - Pulmonary Hx Respiratory Disorders: No - Neurological Hx Neurological Disorder: No - HEENT Hx HEENT Disorder: No - Renal Hx Renal Disorder: No - Endocrine/Metabolic Hx Endocrine Disorders: No - Hematological/Oncological Hx Blood Disorders: No - Integumentary Hx Dermatological Disorder: No - Musculoskeletal/Rheumatological Hx Musculoskeletal Disorders: No - Gastrointestinal Hx Gastrointestinal Disorders: Yes Hx Gastroesophageal Reflux: Yes Hx Pancreatitis: Yes - Genitourinary/Gynecological Hx Genitourinary Disorders: No Hx Sexually Transmitted Diseases: No - Psychiatric Hx Psychophysiologic Disorder: No Hx Substance Use: Yes Other/Comment: alcohol abuse - Past Surgical History Past Surgical History: No Previous - Surgical History Hx Amputation: No Hx Appendectomy: No Hx Cardiac Catheterization: No Hx Cholecystectomy: No Hx Coronary Stent: No Hx Gastric Bypass Surgery: No Hx Hysterectomy: No Hx Joint Replacement: No Hx Kidney Transplant: No Hx Liver Transplant: No Hx Mastectomy: No Hx Musculoskeletal Surgery: No Hx Open Heart Surgery: No Hx Orthopedic Surgery: No Hx Splenectomy: No Hx Valve Replacement: No - Anesthesia Hx Anesthesia: No Hx Anesthesia Reactions: No Hx Malignant Hyperthermia: No - Suicidal Assessment Feels Threatened In Home Enviroment: No Family/Social History - Physician Review Nursing Documentation Reviewed: Yes Family/Social History: Unknown Family HX Smoking Status: Light Smoker < 10 Cigarettes Daily Hx Alcohol Use: Yes Frequency of alcohol use: Daily Amount per day: 24 Hx Substance Use: Yes Substance used: heroin Allergies/Home Meds Allergies/Adverse Reactions: Allergies No Known Allergies Allergy (Verified 04/14/18 23:37) Home Medications: Home Meds Medication Instructions Recorded Confirmed RX: No Known Home Med 04/05/18 05/03/18 Review of Systems - Physician Review All systems were reviewed & negative as marked: Yes - Review of Systems Constitutional: Fatigue. absent: Fevers Respiratory: absent: SOB, Cough Cardiovascular: absent: Chest Pain, Palpitations, Syncope Gastrointestinal: Nausea, Vomiting, Hematemesis. absent: Abdominal Pain, Constipation, Diarrhea, Hematochezia Neurological: Dizziness. absent: Headache, Focal Weakness, Gait Changes Physical Exam Vital Signs Temp Pulse Resp BP Pulse Ox 05/09/18 16:28 98.5 F 88 18 112/74 99 Temperature: Afebrile Blood Pressure: Normal Pulse: Regular Respiratory Rate: Normal Appearance: Positive for: Well-Appearing, Non-Toxic, Comfortable, Unkept, Other (foul-smelling) Pain Distress: None Mental Status: Positive for: Alert and Oriented X 3 - Systems Exam Head: Present: Atraumatic, Normocephalic Pupils: Present: PERRL Extroacular Muscles: Present: EOMI Conjunctiva: Present: Normal Mouth: Present: Moist Mucous Membranes Pharnyx: No: ERYTHEMA, EXUDATE, TONSILS ENLARGED Neck: Present: Normal Range of Motion Respiratory/Chest: Present: Clear to Auscultation, Good Air Exchange. No: Respiratory Distress, Accessory Muscle Use Cardiovascular: Present: Regular Rate and Rhythm, Normal S1, S2. No: Murmurs Abdomen: No: Tenderness, Distention, Peritoneal Signs, Rebound, Guarding Rectal: Present: Occult Blood, Normal Rectal Tone, Other (brown and guaiac positive). No: Rectal Tenderness, Gross Blood, Melena, Hemorrhoids, Fissures, Nodule/Mass/Lesions Upper Extremity: Present: Normal Inspection. No: Cyanosis, Edema Lower Extremity: Present: Normal Inspection. No: Edema Neurological: Present: GCS=15, CN II-XII Intact, Speech Normal, Motor Func Grossly Intact, Normal Sensory Function, Normal Cerebellar Funct, Gait Normal Skin: Present: Warm, Dry, Normal Color. No: Rashes Psychiatric: Present: Alert, Oriented x 3, Normal Insight, Normal Concentration Medical Decision Making ED Course and Treatment: 05/09/18 17:02 EKG shows normal sinus rhythm rate approximately 100 with unifocal PVCs and no acute ST or T-wave changes. - RAD Interpretation Radiology Orders: 05/09/18 16:43 CHEST PORTABLE [RAD] Stat Chest one view shows no infiltrate effusion or cardiomegaly. Deputy Controller: Radiologist - Medication Orders Current Medication Orders: Pantoprazole Sodium 80 mg/ (Sodium Chloride) 100 mls @ 10 mls/hr IV .Q10H STA Stop: 05/10/18 02:42 Sodium Chloride (Sodium Chloride 0.9%) 500 mls @ 1,000 mls/hr IV .Q30M STA Stop: 05/09/18 17:12 Multivitamins/Vitamin C 10 ml/Thiamine HCl 100 mg/ Folic Acid 1 mg/ Sodium Chloride 1,011.2 mls @ 100 mls/hr IV .Q10H7M ONE Stop: 05/10/18 02:50 Pantoprazole Sodium (Protonix Inj) 80 mg IVP STAT STA Stop: 05/09/18 16:44 Disposition/Present on Arrival - Present on Arrival Any Indicators Present on Arrival: No History of DVT/PE: No History of Uncontrolled Diabetes: No Urinary Catheter: No History of Decub. Ulcer: No History Surgical Site Infection Following: None - Disposition Have Diagnosis and Disposition been Completed?: Yes Diagnosis: Alcohol abuse, Gastrointestinal hemorrhage Disposition: HOSPITALIZED Disposition Time: 18:45 Patient Plan: Observation, Telemetry Patient Problems: Current Active Problems Problem Status Onset Alcohol abuse Acute Gastrointestinal hemorrhage Acute Condition: STABLE
[2018-05-09] MEDS ORDERED: Pantoprazole 40mg/100mL NS 40 MG/100 ML BAG IV SCH (17:00)
[2018-05-09 17:54] LABS: BASO # 0.02 K/mm3 (0.0-2.0); BASO % 0.3 % (0.0-3.0); EOS % 0.4 % (1.5-5.0); GRAN # 5.25 (1.4-6.5); LYMPH # 1.6 (1.2-3.4); MEAN CELL VOLUME 99.7 fl (80.0-105.0); MEAN CORPUSCULAR HEMOGLOBIN 32.9 pg (25.0-35.0); MEAN PLATELET VOLUME 11.9 fl (7.0-11.0); MONO # 0.6 (0.1-0.6); MONO % 8.3 % (1.0-6.0); RBC 3.34 10^6/uL (3.5-6.1); RED CELL DISTRIBUTION WIDTH 14.8 % (11.5-14.5); WHITE BLOOD COUNT 7.5 10^3/ul (4.5-11.0)
[2018-05-09 18:00] LABS: INR 1.3; PARTIAL THROMBOPLASTIN TIME 25.2 Seconds (25.1-36.5); PROTHROMBIN TIME 14.9 SECONDS (9.4-12.5)
[2018-05-09 18:13] LABS: TROPONIN I 0.01 ng/mL
[2018-05-09 18:38] LABS: ALB/GLOB RATIO 0.9 (1.1-1.8); ALT/SGPT 63 U/L (7-56); AMYLASE 68 U/L (35-125); AST/SGOT 120 U/L (17-59); BLOOD UREA NITROGEN 13 mg/dL (7-21); CALCIUM 8.5 mg/dL (8.4-10.5); GFR NON-AFRICAN AMERICAN > 60; LIPASE < 10 U/L (23-300)
--- NOTE | 2018-05-09 18:52 | RAD ---
Date of service: 05/09/2018 HISTORY: gib COMPARISON: 05/03/2018 FINDINGS: LUNGS: No active pulmonary disease. PLEURA: No significant pleural effusion identified, no pneumothorax apparent. CARDIOVASCULAR: No atherosclerotic calcification present Normal. OSSEOUS STRUCTURES: No significant abnormalities. VISUALIZED UPPER ABDOMEN: Normal. OTHER FINDINGS: None. IMPRESSION: No active disease. No significant interval change compared to the prior examination(s).
--- NOTE | 2018-05-09 19:42 | CP.PCM.HP ---
<Demetrio Guerrero - Last Filed: 05/09/18 22:21> History of Present Illness - History of Present Illness History of Present Illness: Demetrio Guerrero PGY1, History and Physical for Dr Lopes Pt is 42 year old homeless, alcoholic male with PMH of HTN, alcohol abuse who presented to [facility] for hematemasis. Pt reports vomiting bright red blood three times today. Pt's at bedside and helped contribute to the history. Both admit to drinking multiple 4-[place] daily. His last drink was last night. Pt admits to heavy alcoholism. Pt has been seen at [facility] several times in the past for ETOH. He also reports lightheadedness and dizziness, and denies chest pain, dyspnea, SOB, abdominal pain, or blood in the stool. 12 point review of symptoms was obtained and added to HPI where appropriate. PMH: HTN, alcohol abuse PSH: denies FH: mother - DM, colon cancer SH: smokin/2 pack per day for 5 years, alcohol: drinks beer/4-[place] daily, drugs: cocaine Home meds: denies PMD: none Present on Admission - Present on Admission Any Indicators Present on Admission: No Review of Systems - Review of Systems Review of Systems: 12 point ROS obtained and added to HPI Past Patient History - Infectious Disease Hx of Infectious Diseases: None - Tetanus Immunizations Tetanus Immunization: Unknown - Past Social History Smoking Status: Light Smoker < 10 Cigarettes Daily - CARDIAC Hx Cardiac Disorders: Yes Hx Hypertension: Yes - PULMONARY Hx Respiratory Disorders: No - NEUROLOGICAL Hx Neurological Disorder: No - HEENT Hx HEENT Problems: No - RENAL Hx Chronic Kidney Disease: No - ENDOCRINE/METABOLIC Hx Endocrine Disorders: No - HEMATOLOGICAL/ONCOLOGICAL Hx Blood Disorders: No - INTEGUMENTARY Hx Dermatological Problems: No - MUSCULOSKELETAL/RHEUMATOLOGICAL Hx Musculoskeletal Disorders: No - GASTROINTESTINAL Hx Gastrointestinal Disorders: Yes Hx Gastroesophageal Reflux: Yes Hx Pancreatitis: Yes - GENITOURINARY/GYNECOLOGICAL Hx Genitourinary Disorders: No Hx Sexually Transmitted Disorders: No - PSYCHIATRIC Hx Psychophysiologic Disorder: No Hx Substance Use: Yes Other/Comment: alcohol abuse - SURGICAL HISTORY Hx Amputation: No Hx Appendectomy: No Hx Cardiac Catheterization: No Hx Cholecystectomy: No Hx Coronary Stent: No Hx Gastric Bypass Surgery: No Hx Hysterectomy: No Hx Joint Replacement: No Hx Kidney Transplant: No Hx Liver Transplant: No Hx Mastectomy: No Hx Musculoskeletal Surgery: No Hx Open Heart Surgery: No Hx Orthopedic Surgery: No Hx Splenectomy: No Hx Valve Replacement: No - ANESTHESIA Hx Anesthesia: No Hx Anesthesia Reactions: No Hx Malignant Hyperthermia: No Meds Allergies/Adverse Reactions: Allergies Allergy/AdvReac Type Severity Reaction Status Date / Time No Known Allergies Allergy Verified 04/14/18 23:37 Physical Exam - Constitutional Appears: Well, No Acute Distress - Head Exam Head Exam: ATRAUMATIC, NORMAL INSPECTION, NORMOCEPHALIC - Eye Exam Eye Exam: EOMI, Normal appearance, Scleral icterus - ENT Exam ENT Exam: Mucous Membranes Moist - Respiratory Exam Respiratory Exam: Clear to Auscultation Bilateral, NORMAL BREATHING PATTERN. absent: Rales, Rhonchi, Wheezes, Respiratory Distress - Cardiovascular Exam Cardiovascular Exam: RRR, +S1, +S2. absent: Diastolic murmur, Systolic Murmur - GI/Abdominal Exam GI & Abdominal Exam: Normal Bowel Sounds, Soft, Tenderness. absent: Guarding Additional comments: mild right sided tenderness to palpation - Extremities Exam Extremities exam: Positive for: full ROM, pedal pulses present. Negative for: calf tenderness, pedal edema - Neurological Exam Neurological exam: Alert, CN II-XII Intact, Oriented x3 - Psychiatric Exam Psychiatric exam: Normal Affect, Normal Mood - Skin Skin Exam: Dry, Intact, Warm Results - Vital Signs Recent Vital Signs: Last Vital Signs Temp 98.5 F 05/09/18 16:28 Pulse 88 05/09/18 19:35 Resp 18 05/09/18 19:35 BP 108/73 05/09/18 19:35 Pulse Ox 98 05/09/18 19:35 - Labs Result Diagrams: 05/09/18 17:30 05/09/18 17:30 Labs: Laboratory Results - last 24 hr 05/09/18 05/09/18 05/09/18 17:30 17:30 17:30 WBC 7.5 D RBC 3.34 L Hgb 11.0 L Hct 33.3 L MCV 99.7 MCH 32.9 MCHC 33.0 RDW 14.8 H Plt Count 115 L MPV 11.9 H Gran % 70.0 H Lymph % (Auto) 21.0 L Winston % (Auto) 8.3 H Eos % (Auto) 0.4 L Baso % (Auto) 0.3 Gran # 5.25 Lymph # (Auto) 1.6 Winston # (Auto) 0.6 Eos # (Auto) 0.0 Baso # (Auto) 0.02 PT 14.9 H INR 1.30 APTT 25.2 Sodium 138 Potassium 3.3 L Chloride 91 L Carbon Dioxide 40 H Anion Gap 10 BUN 13 Creatinine 0.7 L Est GFR ( Amer) > 60 Est GFR (Non-Af Amer) > 60 Random Glucose 117 H Calcium 8.5 Total Bilirubin 2.0 H AST 120 H D ALT 63 H Alkaline Phosphatase 190 H D Lactate Dehydrogenase 577 Total Creatine Kinase 111 Troponin I 0.01 D Total Protein 6.2 Albumin 3.0 Globulin 3.2 Albumin/Globulin Ratio 0.9 L Amylase 68 Lipase < 10 L Alcohol, Quantitative 05/09/18 17:30 WBC RBC Hgb Hct MCV MCH MCHC RDW Plt Count MPV Gran % Lymph % (Auto) Winston % (Auto) Eos % (Auto) Baso % (Auto) Gran # Lymph # (Auto) Winston # (Auto) Eos # (Auto) Baso # (Auto) PT INR APTT Sodium Potassium Chloride Carbon Dioxide Anion Gap BUN Creatinine Est GFR ( Amer) Est GFR (Non-Af Amer) Random Glucose Calcium Total Bilirubin AST ALT Alkaline Phosphatase Lactate Dehydrogenase Total Creatine Kinase Troponin I Total Protein Albumin Globulin Albumin/Globulin Ratio Amylase Lipase Alcohol, Quantitative < 10 Assessment & Plan - Assessment and Plan (Free Text) Assessment: Pt is 42 year old homeless, alcoholic male with PMH of HTN, alcohol abuse who presented to [facility] for hematemasis. Pt reports vomiting bright red blood three times today. Pt was started on IV fluids, given librium 50 PO, and IV protonix in the ED. Plan: Hematemesis 2/2 alcholism - pt is NPO - pt given Banana bag - on protonix drip - on octreotide drip - trend H/H - type and screen - f/u urine cultures - troponin q6 - B12, folate, Iron panel - Ativan 1mg q4 prn - GI consulted HTN - Blood pressure 112/74 - continue to monitor PPX - SCDs - hold chemical ppx Pt seen and examined. Assessment and plan discussed with Dr. Moses Guerrero PGY1 - Date & Time Date: 05/09/18 Time: 19:30 <Parth Lopes - Last Filed: 05/10/18 00:17> Results - Vital Signs Recent Vital Signs: Last Vital Signs Temp 98.8 F 05/09/18 23:16 Pulse 71 05/09/18 23:19 Resp 18 05/09/18 23:19 BP 99/60 L 05/09/18 23:16 Pulse Ox 98 05/09/18 23:16 - Labs Result Diagrams: 05/09/18 17:30 05/09/18 17:30 Labs: Laboratory Results - last 24 hr 05/09/18 05/09/18 05/09/18 17:30 17:30 17:30 WBC 7.5 D RBC 3.34 L Hgb 11.0 L Hct 33.3 L MCV 99.7 MCH 32.9 MCHC 33.0 RDW 14.8 H Plt Count 115 L MPV 11.9 H Gran % 70.0 H Lymph % (Auto) 21.0 L Winston % (Auto) 8.3 H Eos % (Auto) 0.4 L Baso % (Auto) 0.3 Gran # 5.25 Lymph # (Auto) 1.6 Winston # (Auto) 0.6 Eos # (Auto) 0.0 Baso # (Auto) 0.02 PT 14.9 H INR 1.30 APTT 25.2 Sodium 138 Potassium 3.3 L Chloride 91 L Carbon Dioxide 40 H Anion Gap 10 BUN 13 Creatinine 0.7 L Est GFR ( Amer) > 60 Est GFR (Non-Af Amer) > 60 Random Glucose 117 H Calcium 8.5 Iron TIBC % Saturation Total Bilirubin 2.0 H AST 120 H D ALT 63 H Alkaline Phosphatase 190 H D Lactate Dehydrogenase 577 Total Creatine Kinase 111 Troponin I 0.01 D Total Protein 6.2 Albumin 3.0 Globulin 3.2 Albumin/Globulin Ratio 0.9 L Amylase 68 Lipase < 10 L Urine Color Urine Appearance Urine pH Ur Specific [place] Urine Protein Urine Glucose (UA) Urine Ketones Urine Blood Urine Nitrate Urine Bilirubin Urine Urobilinogen Ur Leukocyte Esterase Urine RBC Urine WBC Ur Epithelial Cells Urine Opiates Screen Urine Methadone Screen Ur Barbiturates Screen Ur Phencyclidine Scrn Ur Amphetamines Screen U Benzodiazepines Scrn U Oth Cocaine Metabols U Cannabinoids Screen Alcohol, Quantitative Blood Type Antibody Screen BBK History Checked 05/09/18 05/09/18 05/09/18 17:30 17:45 18:49 WBC RBC Hgb Hct MCV MCH MCHC RDW Plt Count MPV Gran % Lymph % (Auto) [place] % (Auto) Eos % (Auto) Baso % (Auto) Gran # Lymph # (Auto) Winston # (Auto) Eos # (Auto) Baso # (Auto) PT INR APTT Sodium Potassium Chloride Carbon Dioxide Anion Gap BUN Creatinine Est GFR ( Amer) Est GFR (Non-Af Amer) Random Glucose Calcium Iron 171 TIBC 305 % Saturation 56 H Total Bilirubin AST ALT Alkaline Phosphatase Lactate Dehydrogenase Total Creatine Kinase Troponin I Total Protein Albumin Globulin Albumin/Globulin Ratio Amylase Lipase Urine Color Urine Appearance Urine pH Ur Specific [place] Urine Protein Urine Glucose (UA) Urine Ketones Urine Blood Urine Nitrate Urine Bilirubin Urine Urobilinogen Ur Leukocyte Esterase Urine RBC Urine WBC Ur Epithelial Cells Urine Opiates Screen Urine Methadone Screen Ur Barbiturates Screen Ur Phencyclidine Scrn Ur Amphetamines Screen U Benzodiazepines Scrn U Oth Cocaine Metabols U Cannabinoids Screen Alcohol, Quantitative < 10 Blood Type O POSITIVE Antibody Screen Negative BBK History Checked No verified bt 05/09/18 05/09/18 19:24 19:24 WBC RBC Hgb Hct MCV MCH MCHC RDW Plt Count MPV Gran % Lymph % (Auto) Winston % (Auto) Eos % (Auto) Baso % (Auto) Gran # Lymph # (Auto) Winston # (Auto) Eos # (Auto) Baso # (Auto) PT INR APTT Sodium Potassium Chloride Carbon Dioxide Anion Gap BUN Creatinine Est GFR ( Amer) Est GFR (Non-Af Amer) Random Glucose Calcium Iron TIBC % Saturation Total Bilirubin AST ALT Alkaline Phosphatase Lactate Dehydrogenase Total Creatine Kinase Troponin I Total Protein Albumin Globulin Albumin/Globulin Ratio Amylase Lipase Urine Color Dark yellow Urine Appearance Clear Urine pH 8.5 Ur Specific [place] 1.010 Urine Protein 100 H Urine Glucose (UA) 100 H Urine Ketones Trace H Urine Blood Negative Urine Nitrate Negative Urine Bilirubin Negative Urine Urobilinogen 2.0 H Ur Leukocyte Esterase Trace H Urine RBC 5 - 10 Urine WBC 5 - 10 Ur Epithelial Cells 6 - 8 Urine Opiates Screen Negative Urine Methadone Screen Negative Ur Barbiturates Screen Negative Ur Phencyclidine Scrn Negative Ur Amphetamines Screen Negative U Benzodiazepines Scrn Negative U Oth Cocaine Metabols Negative U Cannabinoids Screen Negative Alcohol, Quantitative Blood Type Antibody Screen BBK History Checked Attending/Attestation - Attestation I have personally seen and examined this patient.: Yes I have fully participated in the care of the patient.: Yes I have reviewed all pertinent clinical information: Yes
[2018-05-09] MEDS ORDERED: Multivitamin (MVI) 10 ML, Thiamine 100 MG, Folic Acid 1 MG in Dextrose 5% In Water 1,00... IV ONE (19:46)
[2018-05-09 19:49] LABS: PH,URINE 8.5 (4.7-8.0); URINE BILIRUBIN NEGATIVE (NEGATIVE); URINE BLOOD NEGATIVE (NEGATIVE); URINE GLUCOSE (UA) 100 mg/dL (NEGATIVE); URINE LEUKOCYTE ESTERASE TRACE Leu/uL (NEGATIVE); URINE PROTEIN 100 mg/dL (<30 mg/dL)
[2018-05-09 19:51] LABS: URINE APPEARANCE CLEAR (CLEAR); URINE COLOR DARK YELLOW (YELLOW)
[2018-05-09 19:57] LABS: OPIATES, UR NEGATIVE (NEGATIVE)
[2018-05-09 19:58] LABS: BARBITURATES, UR NEGATIVE (NEGATIVE); BENZODIAZEPINES, UR NEGATIVE (NEGATIVE); PHENCYCLIDINE, UR NEGATIVE (NEGATIVE)
[2018-05-09 19:59] LABS: IRON 171 ug/dL (45-180)
[2018-05-09 20:09] LABS: % IRON SATURATION 56 % (20-55); TOTAL IRON BINDING CAPACITY 305 ug/dL (261-462)
[2018-05-09] MEDS: Pantoprazole 40mg/100mL NS 40 MG/100 ML BAG IVPB SCH (20:48)
--- NOTE | 2018-05-09 22:13 | CARD ---
APPROVED REPORT Date of service: 05/09/2018 EKG Measurement Heart [id number] <Conclusion> Sinus tachycardia with occasional premature ventricular complexes Voltage criteria for left ventricular hypertrophy Abnormal ECG
[2018-05-10 00:32] LABS: HEMOGLOBIN 8.4 g/dL (14.0-18.0); MEAN CELL VOLUME 100.4 fl (80.0-105.0); MEAN CORPUSCULAR HEMOGLOBIN 33.1 pg (25.0-35.0); MEAN CORPUSCULAR HGB CONC 32.9 g/dl (31.0-37.0); MEAN PLATELET VOLUME 10.5 fl (7.0-11.0); RBC 2.54 10^6/uL (3.5-6.1); RED CELL DISTRIBUTION WIDTH 14.9 % (11.5-14.5); WHITE BLOOD COUNT 7.5 10^3/ul (4.5-11.0)
[2018-05-10] MEDS: Pantoprazole 40mg/100mL NS 40 MG/100 ML BAG IVPB SCH ×2 (00:45→05:11)
[2018-05-10 07:52] LABS: BASO # 0.02 K/mm3 (0.0-2.0); BASO % 0.4 % (0.0-3.0); EOS # 0.1 (0.0-0.7); EOS % 1.2 % (1.5-5.0); GRAN # 2.72 (1.4-6.5); GRAN % 53.6 % (50.0-68.0); HEMOGLOBIN 8.5 g/dL (14.0-18.0); LYMPH # 1.9 (1.2-3.4); LYMPH % 37.5 % (22.0-35.0); MEAN CELL VOLUME 101.5 fl (80.0-105.0); MEAN CORPUSCULAR HEMOGLOBIN 32.7 pg (25.0-35.0); MEAN CORPUSCULAR HGB CONC 32.2 g/dl (31.0-37.0); MONO # 0.4 (0.1-0.6); MONO % 7.3 % (1.0-6.0); RBC 2.6 10^6/uL (3.5-6.1); RED CELL DISTRIBUTION WIDTH 15.3 % (11.5-14.5); WHITE BLOOD COUNT 5.1 10^3/ul (4.5-11.0)
[2018-05-10 08:04] LABS: ALB/GLOB RATIO 0.8 (1.1-1.8); ALBUMIN 2.3 g/dL (3.0-4.8); ALT/SGPT 43 U/L (7-56); AST/SGOT 55 U/L (17-59); BLOOD UREA NITROGEN 16 mg/dL (7-21); CALCIUM 7.9 mg/dL (8.4-10.5); GFR NON-AFRICAN AMERICAN > 60
[2018-05-10 08:08] LABS: TROPONIN I < 0.01 ng/mL
[2018-05-10 08:23] LABS: INR 1.37; PROTHROMBIN TIME 15.8 SECONDS (9.4-12.5)
[2018-05-10] MEDS ORDERED: MAGNESIUM SULFATE IV ONE (08:58)
[2018-05-10] MEDS ORDERED: MULTIVITAMIN IV ONE (08:58)
[2018-05-10] MEDS ORDERED: [UNRECOGNIZED DRUG - OTHER] IV ONE (08:58)
[2018-05-10] MEDS ORDERED: FOLIC ACID IV ONE (08:58)
[2018-05-10] MEDS ORDERED: THIAMINE IV ONE (08:58)
[2018-05-10] MEDS: Morphine 2 mg/ml ISec IVP ONE ×2 (10:14→20:00)
[2018-05-10 12:16] LABS: BASO # 0.02 K/mm3 (0.0-2.0); BASO % 0.4 % (0.0-3.0); EOS # 0.1 (0.0-0.7); EOS % 1.2 % (1.5-5.0); GRAN # 2.74 (1.4-6.5); GRAN % 53.7 % (50.0-68.0); HEMOGLOBIN 8.6 g/dL (14.0-18.0); LYMPH # 1.9 (1.2-3.4); LYMPH % 36.7 % (22.0-35.0); MEAN CELL VOLUME 101.5 fl (80.0-105.0); MEAN CORPUSCULAR HEMOGLOBIN 32.6 pg (25.0-35.0); MEAN CORPUSCULAR HGB CONC 32.1 g/dl (31.0-37.0); MEAN PLATELET VOLUME 10.5 fl (7.0-11.0); MONO # 0.4 (0.1-0.6); RBC 2.64 10^6/uL (3.5-6.1); RED CELL DISTRIBUTION WIDTH 15.2 % (11.5-14.5); WHITE BLOOD COUNT 5.1 10^3/ul (4.5-11.0)
--- NOTE | 2018-05-10 12:16 | CP.PCM.PN ---
<Giovanny Brandt - Last Filed: 05/10/18 12:09> Subjective - Date & Time of Evaluation Date of Evaluation: 05/10/18 Time of Evaluation: 12:09 - Subjective Subjective: Internal Medicine Progress Note (Hospitalist Service): Mayra PGY2 Patient seen and assessed at bedside. No acute events noted overnight. Patient reports that he has had no more episodes of vomiting since admission. Currently he denies any complaints including fevers, chills, headache, chest pain, SOB, abdominal pain, N/V/D/C, melena, hematochezia, hematemesis, changes in urine output, skin changes or any numbness/tingling/weakness of any extremity. Objective - Vital Signs/Intake and Output Vital Signs (last 24 hours): Temp Pulse Resp BP Pulse Ox 99 F 76 18 112/76 100 05/10/18 05:53 05/10/18 10:00 05/10/18 05:53 05/10/18 05:53 05/10/18 05:53 Intake and Output: 05/10/18 05/10/18 06:59 18:59 Intake Total 0 Balance 0 - Medications Medications: Current Medications Potassium Chloride (Potassium Chloride 20 Meq/100 Ml) 20 meq in 100 mls @ 50 mls/hr IVPB Q2H BRUCE Stop: 05/10/18 12:14 Last Admin: 05/10/18 10:13 Dose: 50 mls/hr Multivitamins/Vitamin C 10 ml/Thiamine HCl 100 mg/ Folic Acid 1 mg/ Magnesium Sulfate 2 gm/ Potassium Chloride 40 meq / Sodium Chloride 1,035.2 mls @ 100 mls/hr IV .[id number] ONE Stop: 05/10/18 19:19 Last Admin: 05/10/18 10:23 Dose: 100 mls/hr Lorazepam (Ativan) 1 mg IVP Q2H PRN; Protocol PRN Reason: Anxiety Nicotine (Nicoderm Cq) 1 patch TD DAILY [facility] Last Admin: 05/10/18 10:14 Dose: 1 patch Ondansetron HCl (Zofran Inj) 4 mg IVP Q4H PRN PRN Reason: Nausea/Vomiting Pantoprazole Sodium (Protonix Inj) 40 mg IVP Q12 [facility] Last Admin: 05/10/18 10:14 Dose: 40 mg - Labs Labs: 05/10/18 07:00 10/20/18 07:00 PT 15.8 SECONDS (9.4-12.5) H 05/10/18 07:00 INR 1.37 05/10/18 07:00 APTT 32.0 Seconds (25.1-36.5) 05/10/18 07:00 - Constitutional Appears: Non-toxic, No Acute Distress - Head Exam Head Exam: ATRAUMATIC, NORMOCEPHALIC - Eye Exam Eye Exam: EOMI, Normal appearance, PERRL - ENT Exam ENT Exam: Mucous Membranes Dry - Neck Exam Neck Exam: Full ROM, Normal Inspection. absent: Meningismus, Tenderness - Respiratory Exam Respiratory Exam: Clear to Ausculation Bilateral, NORMAL BREATHING PATTERN. absent: Accessory Muscle Use, Rales, Rhonchi, Wheezes, Respiratory Distress - Cardiovascular Exam Cardiovascular Exam: REGULAR RHYTHM, RRR, +S1, +S2 - GI/Abdominal Exam GI & Abdominal Exam: Soft, Normal Bowel Sounds. absent: Tenderness - Extremities Exam Extremities Exam: Full ROM, Normal Capillary Refill, Normal Inspection. absent: Calf Tenderness, Joint Swelling, Pedal Edema, Tenderness - Neurological Exam Neurological Exam: Alert, Awake, Oriented x3 - Psychiatric Exam Psychiatric exam: Normal Affect, Normal Mood - Skin Skin Exam: Dry, Intact, Normal Color, Warm Assessment and Plan - Assessment and Plan (Free Text) Assessment: 42 year old male with a past medical history significant for HTN, alcohol abuse and tobacco use disorder who presented with multiple episodes of reported unwitnessed episodes of hematemesis. Plan: 1. Hematemesis -No further episodes of vomiting since admission -Hemoglobin stable at 8.6; Serial CBC's Q4H -Protonix drip discontinued; Protonix 40mg IVP Q12 started -Octreotide drip discontinued -Zofran 4mg Q4H IVP PRN for N/V -NPO Diet -Banana bag at 100mls/hr -Strict I/O's and aspiration precautions -GI consulted, all recommendations appreciated 2. Alcohol Abuse -Alcohol: <10 -Last drink reportedly 24 hours ago -Ativan 1mg Q2H PRN -Banana bag at 100mls/hr -CIWA protocol -Aspiration, fall and seizure precautions -Cessation recommendations provided 3. Hypomagnesemia -Magnesium Sulfate 2gm added to banana bag -Continue to monitor with daily magnesium levels 4. Hypokalemia -No EKG changes noted -Potassium Chloride 40meq added to banana bag -Continue to monitor with daily CMP's 5. Tobacco Use Disorder -Nicoderm CQ TD daily -Cessation recommendations provided GI Prophylaxis: Protonix DVT Prophylaxis: SCD's Patient seen and case discussed with attending, Dr. Swanson. <Erick Swanson - Last Filed: 05/11/18 10:55> Objective - Vital Signs/Intake and Output Vital Signs (last 24 hours): Temp Pulse Resp BP Pulse Ox 98.4 F 56 L 20 126/82 94 L 05/11/18 06:00 05/11/18 06:00 05/11/18 06:00 05/11/18 06:00 05/11/18 06:00 Intake and Output: 05/11/18 05/11/18 06:59 18:59 Intake Total 2760 Output Total 700 Balance 2060 - Medications Medications: Current Medications Folic Acid (Folic Acid) 1 mg PO DAILY [facility] Last Admin: 05/11/18 09:06 Dose: 1 mg Lorazepam (Ativan) 1 mg IVP Q2H PRN; Protocol PRN Reason: Anxiety Multivitamins/Minerals (Therapeutic-M Tab) 1 tab PO 0800 [facility] Last Admin: 05/11/18 09:06 Dose: 1 tab Nicotine (Nicoderm Cq) 1 patch TD DAILY [facility] Last Admin: 05/11/18 09:07 Dose: 1 patch Ondansetron HCl (Zofran Inj) 4 mg IVP Q4H PRN PRN Reason: Nausea/Vomiting Last Admin: 05/11/18 05:22 Dose: 4 mg Pantoprazole Sodium (Protonix Inj) 40 mg IVP Q12 [facility] Last Admin: 05/11/18 09:06 Dose: 40 mg Thiamine HCl (Vitamin B1 Tab) 100 mg PO DAILY [facility] Last Admin: 05/11/18 09:06 Dose: 100 mg - Labs Labs: 05/11/18 08:00 05/11/18 08:00 PT 15.8 SECONDS (9.4-12.5) H 05/10/18 07:00 INR 1.37 05/10/18 07:00 APTT 32.0 Seconds (25.1-36.5) 05/10/18 07:00 Attending/Attestation - Attestation I have personally seen and examined this patient.: Yes I have fully participated in the care of the patient.: Yes I have reviewed all pertinent clinical information, including history, physical exam and plan: Yes Notes (Text): 05/11/18 10:53 Attending note; Patient seen and examined with resident. Patient is a 42 year old male with a past medical history significant for HTN, alcohol abuse and tobacco use disorder who presented with multiple episodes of reported unwitnessed episodes of hematemesis. Patient currently denies any nausea or vomiting . Denies any tremors . History of chronic alcohol abuse ; complete alcohol cessation strongly advised . Monitor with CIWA protocol. Currently not in any active withdrawal. Alcoholic gastritis; continue IV Protonix. GI evaluation requested. Continue serial H&H. Active smoking; smoking cessation is strongly advised. Continue NicoDerm patch. Upon discharge patient will be referred to [facility] clinic. 05/11/18 10:55
[2018-05-10 13:35] LABS: FOLATE 8.7 ng/mL
[2018-05-10 16:27] LABS: BASO # 0.01 K/mm3 (0.0-2.0); BASO % 0.2 % (0.0-3.0); EOS # 0.1 (0.0-0.7); EOS % 1.4 % (1.5-5.0); GRAN # 2.37 (1.4-6.5); GRAN % 48.4 % (50.0-68.0); HEMOGLOBIN 7.7 g/dL (14.0-18.0); LYMPH # 2.1 (1.2-3.4); LYMPH % 43.5 % (22.0-35.0); MEAN CELL VOLUME 102.1 fl (80.0-105.0); MEAN CORPUSCULAR HEMOGLOBIN 32.9 pg (25.0-35.0); MEAN CORPUSCULAR HGB CONC 32.2 g/dl (31.0-37.0); MONO # 0.3 (0.1-0.6); MONO % 6.5 % (1.0-6.0); RBC 2.34 10^6/uL (3.5-6.1); RED CELL DISTRIBUTION WIDTH 15.3 % (11.5-14.5); WHITE BLOOD COUNT 4.9 10^3/ul (4.5-11.0)
[2018-05-10] MEDS ORDERED: Morphine 2 mg/ml ISec IVP STA (19:48)
[2018-05-10 20:06] LABS: BASO # 0.02 K/mm3 (0.0-2.0); BASO % 0.4 % (0.0-3.0); EOS # 0.1 (0.0-0.7); GRAN # 2.11 (1.4-6.5); GRAN % 46.8 % (50.0-68.0); HEMOGLOBIN 7.7 g/dL (14.0-18.0); LYMPH % 43.5 % (22.0-35.0); MEAN CELL VOLUME 101.7 fl (80.0-105.0); MEAN CORPUSCULAR HEMOGLOBIN 32.6 pg (25.0-35.0); MEAN CORPUSCULAR HGB CONC 32.1 g/dl (31.0-37.0); MEAN PLATELET VOLUME 10.3 fl (7.0-11.0); MONO # 0.3 (0.1-0.6); MONO % 7.3 % (1.0-6.0); RBC 2.36 10^6/uL (3.5-6.1); RED CELL DISTRIBUTION WIDTH 15.2 % (11.5-14.5); WHITE BLOOD COUNT 4.5 10^3/ul (4.5-11.0)
--- NOTE | 2018-05-10 20:46 | CON ---
GASTROENTEROLOGY CONSULTATION DATE OF CONSULTATION: 05/10/2018 REQUESTING PHYSICIAN: Erikc Swanson MD REASON FOR CONSULT: I have been asked to see this 42-year-old alcoholic male, homeless, who comes to the hospital with three episodes of vomiting bright red blood on the day of admission to the hospital. He denies any abdominal pains, rectal bleeding, chest pain, fevers, chills. He drinks alcohol every day including four [place] beer daily as well as two to three other 12-ounce cans of beer. He smokes half a pack of cigarettes per day. He denies any other drug use. He is homeless. PAST MEDICAL HISTORY: Notable for alcoholism and hypertension. FAMILY HISTORY: Notable for mother with colon cancer. REVIEW OF SYSTEMS: A 14-point review of systems is notable for hematemesis. MEDICATIONS AT HOME: None. PHYSICAL EXAMINATION: Well-developed male, lying in bed in no acute distress. Vital signs reveal temperature of 99, blood pressure 112/76, heart rate 67. HEENT reveal sclerae to be white. Conjunctivae pink. Neck is supple. Chest and lungs are clear. Heart exam reveals a regular rate and rhythm. Abdomen is soft, nontender. Extremities show no edema. LABORATORY DATA: Reveal hemoglobin of 8.6. His blood count has been stable over the last 12 hours. Hemoglobin several months ago revealed his hemoglobin to be in the 10.6 g range. I suspect that the patient's hematemesis is related to alcoholic-induced gastritis. He has no clinical evidence of cirrhosis of the liver. Again, his blood count has remained stable over the last 12 hours. His BUN is normal. RECOMMENDATIONS: 1. Follow serial hematocrits. 2. Check stool guaiacs. 3. We will start the patient on clear liquid diet. If tolerated, can advance to a soft diet. 4. The patient will need elective colonoscopy given the family history of colon cancer. João Diamond MD
[2018-05-11] MEDS ORDERED: Potassium Chloride 20 mEq ER Tab PO STA (08:07)
[2018-05-11 08:31] LABS: BASO # 0.01 K/mm3 (0.0-2.0); BASO % 0.2 % (0.0-3.0); EOS # 0.1 (0.0-0.7); EOS % 1.4 % (1.5-5.0); GRAN # 2.68 (1.4-6.5); GRAN % 53.1 % (50.0-68.0); HEMOGLOBIN 8.8 g/dL (14.0-18.0); LYMPH % 38.8 % (22.0-35.0); MEAN CELL VOLUME 103.4 fl (80.0-105.0); MEAN CORPUSCULAR HEMOGLOBIN 33.2 pg (25.0-35.0); MEAN CORPUSCULAR HGB CONC 32.1 g/dl (31.0-37.0); MEAN PLATELET VOLUME 10.9 fl (7.0-11.0); MONO # 0.3 (0.1-0.6); MONO % 6.5 % (1.0-6.0); RBC 2.65 10^6/uL (3.5-6.1); RED CELL DISTRIBUTION WIDTH 15.4 % (11.5-14.5); WHITE BLOOD COUNT 5.1 10^3/ul (4.5-11.0)
[2018-05-11] MEDS: Multivitamin With Minerals Tab PO SCH (09:06)
[2018-05-11 09:30] LABS: ALB/GLOB RATIO 0.9 (1.1-1.8); ALBUMIN 2.7 g/dL (3.0-4.8); ALT/SGPT 41 U/L (7-56); AST/SGOT 45 U/L (17-59); BLOOD UREA NITROGEN 10 mg/dL (7-21); CALCIUM 8.4 mg/dL (8.4-10.5); GFR NON-AFRICAN AMERICAN > 60
--- NOTE | 2018-05-11 10:45 | CP.PCM.PN ---
<Jefferson Gibson - Last Filed: 05/11/18 10:37> Subjective - Date & Time of Evaluation Date of Evaluation: 05/11/18 Time of Evaluation: 10:37 - Subjective Subjective: PGY-2 medicine progress note for Dr Swanson No acute events noted overnight (his ciwa score overnight was 0). Patient denied emesis, diarrhea. He stated he still has some nausea. He was about to eat his breakfast when I saw him. He stated he overall was doing much better. He stated he had a normal to loose appearing bowel movement earlier and stated he did not see any blood. Objective - Vital Signs/Intake and Output Vital Signs (last 24 hours): Temp Pulse Resp BP Pulse Ox 98.4 F 56 L 20 126/82 94 L 05/11/18 06:00 05/11/18 06:00 05/11/18 06:00 05/11/18 06:00 05/11/18 06:00 Intake and Output: 05/11/18 05/11/18 06:59 18:59 Intake Total 2760 Output Total 700 Balance 2060 - Medications Medications: Current Medications Folic Acid (Folic Acid) 1 mg PO DAILY [facility] Last Admin: 05/11/18 09:06 Dose: 1 mg Lorazepam (Ativan) 1 mg IVP Q2H PRN; Protocol PRN Reason: Anxiety Multivitamins/Minerals (Therapeutic-M Tab) 1 tab PO 0800 [facility] Last Admin: 05/11/18 09:06 Dose: 1 tab Nicotine (Nicoderm Cq) 1 patch TD DAILY [facility] Last Admin: 05/11/18 09:07 Dose: 1 patch Ondansetron HCl (Zofran Inj) 4 mg IVP Q4H PRN PRN Reason: Nausea/Vomiting Last Admin: 05/11/18 05:22 Dose: 4 mg Pantoprazole Sodium (Protonix Inj) 40 mg IVP Q12 [facility] Last Admin: 05/11/18 09:06 Dose: 40 mg Thiamine HCl (Vitamin B1 Tab) 100 mg PO DAILY [facility] Last Admin: 05/11/18 09:06 Dose: 100 mg - Labs Labs: 05/11/18 08:00 05/11/18 08:00 PT 15.8 SECONDS (9.4-12.5) H 05/10/18 07:00 INR 1.37 05/10/18 07:00 APTT 32.0 Seconds (25.1-36.5) 05/10/18 07:00 - Additional Findings Additional findings: - Constitutional Appears: Non-toxic, No Acute Distress - Head Exam Head Exam: ATRAUMATIC, NORMOCEPHALIC - Eye Exam Eye Exam: EOMI, Normal appearance, PERRL - ENT Exam ENT Exam: Mucous Membranes Dry - Neck Exam Neck Exam: Full ROM, Normal Inspection. absent: Meningismus, Tenderness - Respiratory Exam Respiratory Exam: Clear to Ausculation Bilateral, NORMAL BREATHING PATTERN. absent: Accessory Muscle Use, Rales, Rhonchi, Wheezes, Respiratory Distress - Cardiovascular Exam Cardiovascular Exam: REGULAR RHYTHM, RRR, +S1, +S2 - GI/Abdominal Exam GI & Abdominal Exam: Soft, Normal Bowel Sounds. absent: Tenderness - Extremities Exam Extremities Exam: Full ROM, Normal Capillary Refill, Normal Inspection. absent: Calf Tenderness, Joint Swelling, Pedal Edema, Tenderness - Neurological Exam Neurological Exam: Alert, Awake, Oriented x3 - Psychiatric Exam Psychiatric exam: Normal Affect, Normal Mood - Skin Skin Exam: Dry, Intact, Normal Color, Warm Assessment and Plan - Assessment and Plan (Free Text) Plan: 42 year old male with a past medical history significant for HTN, alcohol abuse and tobacco use disorder who presented with multiple episodes of reported unwitnessed episodes of hematemesis. Plan: 1. Hematemesis -No further episodes of vomiting since admission -Hemoglobin stable at 8.8; Hg on admission was 11 -Protonix drip discontinued; Protonix 40mg IVP Q12 started -Octreotide drip discontinued -Zofran 4mg Q4H IVP PRN for N/V -Tolerating clear liquid diet - will advance as tolerated -Received 2L Banana bag -Strict I/O's and aspiration precautions -F/U FOBT -GI consulted, all recommendations appreciated * Check stool guaiacs * Advance diet as tolerated * Patient will need elective colonoscopy given family hx of colon cancer 2. Alcohol Abuse -Alcohol: <10 -Last drink reportedly 24 hours prior to presentation -Ativan 1mg Q2H PRN -Received 2L Banana bag -Thiamine 100mg po qd, folic acid 1mg po qd, MV 1 tab po qd -Administered vitamin b12 IM due to low-normal vitamin b12 level -[facility] protocol - most recently has been 0 -Aspiration, fall and seizure precautions -Cessation recommendations provided 3. Hypomagnesemia -Magnesium Sulfate 2gm added to banana bag -Continue to monitor with daily magnesium levels 4. Hypokalemia -No EKG changes noted -Potassium Chloride 40meq added to banana bag -Continue to monitor with daily CMP's 5. Tobacco Use Disorder -Nicoderm CQ TD daily -Cessation recommendations provided 6. Prophylaxis: -Protonix -SCD's Patient seen and case discussed with attending, Dr. Swanson. <Erick Swanson - Last Filed: 05/11/18 10:56> Objective - Vital Signs/Intake and Output Vital Signs (last 24 hours): Temp Pulse Resp BP Pulse Ox 98.4 F 56 L 20 126/82 94 L 05/11/18 06:00 05/11/18 06:00 05/11/18 06:00 05/11/18 06:00 05/11/18 06:00 Intake and Output: 05/11/18 05/11/18 06:59 18:59 Intake Total 2760 Output Total 700 Balance 2060 - Medications Medications: Current Medications Folic Acid (Folic Acid) 1 mg PO DAILY [facility] Last Admin: 05/11/18 09:06 Dose: 1 mg Lorazepam (Ativan) 1 mg IVP Q2H PRN; Protocol PRN Reason: Anxiety Multivitamins/Minerals (Therapeutic-M Tab) 1 tab PO 0800 [facility] Last Admin: 05/11/18 09:06 Dose: 1 tab Nicotine (Nicoderm Cq) 1 patch TD DAILY [facility] Last Admin: 05/11/18 09:07 Dose: 1 patch Ondansetron HCl (Zofran Inj) 4 mg IVP Q4H PRN PRN Reason: Nausea/Vomiting Last Admin: 05/11/18 05:22 Dose: 4 mg Pantoprazole Sodium (Protonix Inj) 40 mg IVP Q12 [facility] Last Admin: 05/11/18 09:06 Dose: 40 mg Thiamine HCl (Vitamin B1 Tab) 100 mg PO DAILY [facility] Last Admin: 05/11/18 09:06 Dose: 100 mg - Labs Labs: 05/11/18 08:00 05/11/18 08:00 PT 15.8 SECONDS (9.4-12.5) H 05/10/18 07:00 INR 1.37 05/10/18 07:00 APTT 32.0 Seconds (25.1-36.5) 05/10/18 07:00 Attending/Attestation - Attestation I have personally seen and examined this patient.: Yes I have fully participated in the care of the patient.: Yes I have reviewed all pertinent clinical information, including history, physical exam and plan: Yes Notes (Text): 05/11/18 10:55 Attending note; Patient seen and examined with resident. Patient is a 42 year old male with a past medical history significant for HTN, alcohol abuse and tobacco use disorder who presented with multiple episodes of reported unwitnessed episodes of hematemesis. Patient currently denies any nausea or vomiting . Denies any tremors . History of chronic alcohol abuse ; complete alcohol cessation strongly advised . Monitor with CIWA protocol. Currently not in any active withdrawal. Alcoholic gastritis; continue IV Protonix. GI evaluation appreciated. Hemoglobin is 8.8. Currently no active bleeding. Tolerating liquid diet. Case discussed with GI in detail. No plan for EGD now. Outpatient elective colonoscopy recommended. Patient will be referred to [facility] clinic upon dischsrge. Active smoking; smoking cessation is strongly advised. Continue NicoDerm patch. Upon discharge patient will be referred to [facility] clinic. 05/11/18 10:56
[2018-05-11] MEDS ORDERED: Morphine 2 mg/ml ISec IVP STA (11:24)
[2018-05-11] MEDS ORDERED: Iohexol 240 (50 ml) ONE (13:15)
[2018-05-11] MEDS ORDERED: Iohexol 350 MG/100 ML VIAL ONE (14:58)
--- NOTE | 2018-05-11 16:58 | CT ---
Date of service: 05/11/2018 PROCEDURE: CT Abdomen and Pelvis with contrast HISTORY: bloody diarrhea COMPARISON: 12/09/2017. CT abdomen and pelvis TECHNIQUE: Intravenous contrast dose: 96 cc Omnipaque 350. Radiation dose: Total exam DLP = inf_radiation_dlp mGy-cm. This CT exam was performed using one or more of the following dose reduction techniques: Automated exposure control, adjustment of the mA and/or kV according to patient size, and/or use of iterative reconstruction technique. FINDINGS: LOWER THORAX: Platelike atelectasis confined to the basilar segment of the left lower lobe. This represents a new finding compared to the prior study. LIVER: Hepatic steatosis. No focal masses. No intrahepatic bile duct dilatation or perihepatic ascites. GALLBLADDER AND BILE DUCTS: Collapsed gallbladder without focal abnormalities. No calcified gallstones identified. PANCREAS: Atrophic pancreas with diffuse calcifications consistent with chronic pancreatitis. No evidence of acute or necrotizing pancreatitis. SPLEEN: Unremarkable. ADRENALS: Unremarkable. No mass. KIDNEYS AND URETERS: Unremarkable. No hydronephrosis. No solid mass. VASCULATURE: Unremarkable. No aortic aneurysm. No atherosclerotic calcification or mural plaque present. BOWEL: The colon is filled with fluid and debris particularly the right jeanette colon. Fluid also identified in nondistended loops of small bowel. APPENDIX: Normal appendix is visualized. Portions of the appendix are best seen on coronal series 601/image 61. PERITONEUM: Unremarkable. No free fluid. No free air. LYMPH NODES: Unremarkable. No enlarged lymph nodes. BLADDER: Unremarkable. REPRODUCTIVE: Unremarkable. BONES: No acute fracture. OTHER FINDINGS: Unilateral, left inguinal hernia containing fat only. IMPRESSION: Fluid and debris filled colon and to a lesser extent small bowel. In the appropriate clinical setting enterocolitis should be considered. No evidence of mechanical obstruction. Additional benign and/or incidental findings described above.
--- NOTE | 2018-05-11 17:08 | PN ---
DATE: 05/11/2018 SUBJECTIVE: The patient is sitting in bed. He had tremors and delirium tremens yesterday. He currently denies any tremors. He denies any further vomiting or hematemesis. He denies any abdominal pain. He is tolerating liquid diet. PHYSICAL EXAMINATION: VITAL SIGNS: Reveal temperature of 98.4, blood pressure 126/82, heart rate of 56. HEENT: Reveal sclerae to be white. Conjunctivae pink. NECK: Supple. CHEST: Lungs are clear. HEART: Reveals regular rate and rhythm. ABDOMEN: Soft, nontender. EXTREMITIES: Show no edema. There no tremors. LABORATORY DATA: Hemoglobin from this morning is 8.8. This is stable for the last 24 hours. His platelet count is 115,000. BUN 10, creatinine 0.7. AST and ALT are all normal. Alkaline phosphatase is 158. IMPRESSION: 1. Upper gastrointestinal bleed secondary to alcohol-induced gastritis or possible mucosal tear from vomiting from alcohol use and possibly alcohol withdrawal. His blood count is stable. 2. Delirium tremens, appears to be resolving. RECOMMENDATIONS: 1. Advance diet. 2. The patient can be discharged home with diet as tolerated and he has no other signs of delirium tremens. He will need to be followed up for an elective colonoscopy given the family history of colon cancer. João Diamond MD
[2018-05-12 06:35] LABS: BASO # 0.01 K/mm3 (0.0-2.0); BASO % 0.2 % (0.0-3.0); EOS # 0.1 (0.0-0.7); EOS % 1.5 % (1.5-5.0); GRAN # 3.21 (1.4-6.5); GRAN % 59.4 % (50.0-68.0); HEMOGLOBIN 8.1 g/dL (14.0-18.0); LYMPH # 1.7 (1.2-3.4); LYMPH % 31.3 % (22.0-35.0); MEAN CELL VOLUME 102.9 fl (80.0-105.0); MEAN CORPUSCULAR HEMOGLOBIN 33.5 pg (25.0-35.0); MEAN CORPUSCULAR HGB CONC 32.5 g/dl (31.0-37.0); MEAN PLATELET VOLUME 10.7 fl (7.0-11.0); MONO # 0.4 (0.1-0.6); MONO % 7.6 % (1.0-6.0); RBC 2.42 10^6/uL (3.5-6.1); RED CELL DISTRIBUTION WIDTH 15.3 % (11.5-14.5); WHITE BLOOD COUNT 5.4 10^3/ul (4.5-11.0)
[2018-05-12 06:41] LABS: ALB/GLOB RATIO 0.9 (1.1-1.8); ALBUMIN 2.5 g/dL (3.0-4.8); ALT/SGPT 42 U/L (7-56); AST/SGOT 48 U/L (17-59); BLOOD UREA NITROGEN 10 mg/dL (7-21); CALCIUM 8.5 mg/dL (8.4-10.5); GFR NON-AFRICAN AMERICAN > 60
[2018-05-12] MEDS: Multivitamin With Minerals Tab PO SCH (08:52)
[2018-05-12 11:38] LABS: BASO # 0.01 K/mm3 (0.0-2.0); BASO % 0.2 % (0.0-3.0); EOS # 0.1 (0.0-0.7); EOS % 1.3 % (1.5-5.0); GRAN # 3.55 (1.4-6.5); GRAN % 59.6 % (50.0-68.0); HEMOGLOBIN 7.8 g/dL (14.0-18.0); LYMPH % 32.7 % (22.0-35.0); MEAN CELL VOLUME 102.2 fl (80.0-105.0); MEAN CORPUSCULAR HEMOGLOBIN 33.6 pg (25.0-35.0); MEAN CORPUSCULAR HGB CONC 32.9 g/dl (31.0-37.0); MEAN PLATELET VOLUME 10.1 fl (7.0-11.0); MONO # 0.4 (0.1-0.6); MONO % 6.2 % (1.0-6.0); RBC 2.32 10^6/uL (3.5-6.1); RED CELL DISTRIBUTION WIDTH 15.4 % (11.5-14.5)
--- NOTE | 2018-05-12 14:10 | CP.PCM.PN ---
<Dheeraj Henriquez - Last Filed: 05/12/18 17:02> Subjective - Date & Time of Evaluation Date of Evaluation: 05/12/18 Time of Evaluation: 14:05 - Subjective Subjective: Resident Dheeraj Henriquez DO, PGY1 Hospitalist Progress Note for: Dr. Mario Humphrey Pt was seen and examined this morning at bedside.Pt denies any acute overnight events. He states that he is able to tolerate his diet with no associated nausea or vomiting. Pt reports that he is having no issues with urination though has not had a BM yet this AM. He does admit that yesterday he had 2 BMs with the first one being bloody. GI is aware and states that pt is ok for d/c if he does not have a bloody BM today. Today he reports to me that he did not have a BM yet , but informed the nurse that there was a bloody BM though she was unable to verify if it was bloody. Pts H&H dropped from 8.8 to 8.1 to 7.8. He denies dizziness, lightheadedness, syncope or any other acute complaints at this time. Objective - Vital Signs/Intake and Output Vital Signs (last 24 hours): Temp Pulse Resp BP Pulse Ox 98.7 F 61 18 100/63 100 05/12/18 12:00 05/12/18 12:00 05/12/18 12:00 05/12/18 12:00 05/12/18 09:39 Intake and Output: 05/12/18 05/12/18 06:59 18:59 Intake Total 1080 Balance 1080 - Medications Medications: Current Medications Folic Acid (Folic Acid) 1 mg PO DAILY [facility] Last Admin: 05/12/18 09:39 Dose: 1 mg Lorazepam (Ativan) 1 mg IVP Q2H PRN; Protocol PRN Reason: Anxiety Multivitamins/Minerals (Therapeutic-M Tab) 1 tab PO 0800 [facility] Last Admin: 05/12/18 08:52 Dose: 1 tab Nicotine (Nicoderm Cq) 1 patch TD DAILY [facility] Last Admin: 05/12/18 09:38 Dose: 1 patch Ondansetron HCl (Zofran Inj) 4 mg IVP Q4H PRN PRN Reason: Nausea/Vomiting Last Admin: 05/11/18 05:22 Dose: 4 mg Pantoprazole Sodium (Protonix Inj) 40 mg IVP Q12 [facility] Last Admin: 05/12/18 09:39 Dose: 40 mg Thiamine HCl (Vitamin B1 Tab) 100 mg PO DAILY [facility] Last Admin: 05/12/18 09:39 Dose: 100 mg - Labs Labs: 05/12/18 11:20 05/12/18 05:50 PT 15.8 SECONDS (9.4-12.5) H 05/10/18 07:00 INR 1.37 05/10/18 07:00 APTT 32.0 Seconds (25.1-36.5) 05/10/18 07:00 - Constitutional Appears: Well, Non-toxic, No Acute Distress - Head Exam Head Exam: ATRAUMATIC, NORMOCEPHALIC - Eye Exam Eye Exam: EOMI, Normal appearance, PERRL. absent: Conjunctival injection - Respiratory Exam Respiratory Exam: Clear to Ausculation Bilateral, NORMAL BREATHING PATTERN. absent: Accessory Muscle Use, Chest Wall Tenderness, Decreased Breath Sounds, Prolonged Expiratory Phase, Rales, Rhonchi, Wheezes - Cardiovascular Exam Cardiovascular Exam: RRR, +S1, +S2. absent: Bradycardia, Tachycardia, Gallop, Rubs, Murmur - GI/Abdominal Exam GI & Abdominal Exam: Soft, Normal Bowel Sounds. absent: Bruit, Distended, Firm, Guarding, Rigid, Tenderness - Extremities Exam Extremities Exam: Full ROM, Normal Capillary Refill. absent: Calf Tenderness - Back Exam Back Exam: NORMAL INSPECTION. absent: CVA tenderness (L), CVA tenderness (R) - Psychiatric Exam Psychiatric exam: Normal Affect, Normal Mood - Skin Skin Exam: Dry, Intact, Normal Color, Warm. absent: Abrasion, Rash Assessment and Plan - Assessment and Plan (Free Text) Assessment: Pt is a 42yo M with pmhx of HTN and alcoholism who presents for hematemesis and EtOH withdrawl. CIWA score is 0 upon exam, he has H&H that is trending down from 8.1 to 7.8. He informed nurses of a bloody BM which no one could verify though he reported to me that he had no BMs today. Plan: 1. Hematemesis - Resolved - No further episodes of vomiting since admission - Cont pt on Protonix - Zofran 4mg Q4H IVP PRN for N/V - Tolerating regular diet - GI consulted, all recommendations appreciated * Advance diet as tolerated * Patient will need elective colonoscopy given family hx of colon cancer * Pt to be d/edmundo once he no longer reports bloody BMs. 2. Alcohol Abuse -Alcohol: <10 -Last drink reportedly 24 hours prior to presentation -Ativan 1mg Q2H PRN -Received 2L Banana bag -Thiamine 100mg po qd, folic acid 1mg po qd, MV 1 tab po qd -Administered vitamin b12 IM due to low-normal vitamin b12 level -CIWA protocol - most recently has been 0 -Aspiration, fall and seizure precautions -Cessation recommendations provided 3. Hypomagnesemia - Resolved - Most recent mag level is 2.0 - Continue to monitor with daily magnesium levels 4. Hypokalemia - Resolved -No EKG changes noted - Recent K is 5.0 -Continue to monitor with daily CMP's 5. Tobacco Use Disorder -Nicoderm CQ TD daily -Cessation recommendations provided 6. Prophylaxis: -Protonix -SCD's <Danielle Humphrey R - Last Filed: 05/13/18 15:25> Objective - Vital Signs/Intake and Output Vital Signs (last 24 hours): Temp Pulse Resp BP Pulse Ox 99.4 F 81 18 94/61 L 100 05/13/18 14:08 05/13/18 14:08 05/13/18 14:08 05/13/18 14:08 05/13/18 05:37 Intake and Output: 05/13/18 05/13/18 06:59 18:59 Intake Total 1620 0 Output Total 400 Balance 1220 0 - Medications Medications: Current Medications Acetaminophen (Tylenol 325mg Tab) 650 mg PO Q4H PRN PRN Reason: Fever >100.4 F Folic Acid (Folic Acid) 1 mg PO DAILY [facility] Last Admin: 05/13/18 09:19 Dose: 1 mg Lorazepam (Ativan) 1 mg IVP Q2H PRN; Protocol PRN Reason: Anxiety Multivitamins/Minerals (Therapeutic-M Tab) 1 tab PO 0800 [facility] Last Admin: 05/13/18 08:07 Dose: 1 tab Nicotine (Nicoderm Cq) 1 patch TD DAILY [facility] Last Admin: 05/13/18 09:19 Dose: 1 patch Ondansetron HCl (Zofran Inj) 4 mg IVP Q4H PRN PRN Reason: Nausea/Vomiting Last Admin: 05/11/18 05:22 Dose: 4 mg Pantoprazole Sodium (Protonix Inj) 40 mg IVP Q12 [facility] Last Admin: 05/13/18 09:26 Dose: 40 mg Thiamine HCl (Vitamin B1 Tab) 100 mg PO DAILY [facility] Last Admin: 05/13/18 09:19 Dose: 100 mg - Labs Labs: 05/13/18 10:30 05/13/18 06:00 PT 15.8 SECONDS (9.4-12.5) H 05/10/18 07:00 INR 1.37 05/10/18 07:00 APTT 32.0 Seconds (25.1-36.5) 05/10/18 07:00 Attending/Attestation - Attestation I have personally seen and examined this patient.: Yes I have fully participated in the care of the patient.: Yes I have reviewed all pertinent clinical information, including history, physical exam and plan: Yes Notes (Text): Patient seen and examined by me with resident at 10:20AM on 05/12/18 with resident. Case including HPI, physical exam, and assessment and plan discussed with resident. Agree with above with following additions/corrections. Patient is a 42-year-old male with past medical history significant for alcohol abuse and hypertension that presented to the emergency room with hematemesis. Patient states he is feeling much better today. States he had a bloody bowel movement yesterday which his nurse saw. Patient denies any bowel movements today. However, he told the nurse he had a bloody bowel movement today. Patient also states he felt nauseous yesterday but that has resolved today. Patient states he has some epigastric and left-sided abdominal pain which has improved since admission. Pain is intermittent and dull and achy in nature and does not radiate. Patient is tolerating diet. No chest pain or shortness of breath. No headaches or dizziness. No fevers or chills. No dysuria. Physical exam: General: Awake and alert lying in bed in no acute distress HEENT: Normocephalic, atraumatic. Extraocular muscles intact, pupils equal and reactive, no scleral icterus. Oropharynx is pink and moist. Neck is supple. Cardiovascular: Normal rhythm. Normal S1, S2. No murmurs, rubs, or gallops appreciated Pulmonary: Normal respiratory effort. No rhonchi, rales, or wheezing appreciated. Gastrointestinal: Soft, Nondistended. Positive epigastric and lower left abdominal tenderness with deep palpation. Positive bowel sounds all 4 quadrants. No guarding. Musculoskeletal: Moves all extremities. No edema appreciated. No calf tenderness. Central nervous system: AAO x3 Dermatologic: Skin warm and dry. Assessment and plan: Patient is a 42-year-old male with past medical history significant for alcohol abuse and hypertension that presented to the emergency room with hematemesis. 1. Hematemesis. Resolved. Likely secondary to alcohol-induced gastritis versus mucosal tear from vomiting. H&H downtrending. Continue with Protonix. Patient is tolerating diet. Continue to monitor CBC. 2. Rectal bleeding. Stool for occult blood positive. H&H downtrending. Patient did have bloody bowel movement yesterday. Unclear if patient had bloody bowel movement today. We'll monitor today. No more bloody bowel movements, patient for discharge in a.m. Continue to monitor CBC. 3. Alcohol abuse/withdrawal. Patient scoring a 0 in CIWA. No current withdrawal symptoms. Continue thiamine, folic acid, and multivitamin. Patient counseled at length on alcohol cessation. 4. Hypokalemia and hypomagnesemia. Resolved. Continue to monitor. 5. Tobacco abuse. Patient counseled on cessation. Continue with NicoDerm patch. Case was discussed in detail with the patient regarding current diagnosis and treatment plan. All questions answered.
--- NOTE | 2018-05-12 14:43 | PN ---
DATE: 05/12/2018 SUBJECTIVE: The patient is lying in bed. He denies any further blood per rectum. He still admits to some loose bowel movements. He denies any hematemesis, vomiting or abdominal pain. PHYSICAL EXAMINATION: Vital signs: Reveal temperature of 98.6, blood pressure 122/60, heart rate 65. HEENT: Reveal sclerae to be white. Conjunctivae pale. NECK: Supple. CHEST: Lungs are clear. HEART: Reveals regular rate and rhythm. ABDOMEN: Soft, nontender. No mass. EXTREMITIES: Show no edema. LABORATORY DATA: Reveal hemoglobin 8.1 this morning, white blood cell count 5.4, platelet count of 108,000. Chemistries reveal BUN of 10, creatinine 0.9, alkaline phosphatase of 149. IMPRESSION: A 42-year-old male admitted with hematemesis with known longstanding history of alcohol abuse. The patient had rectal bleeding yesterday. This had stopped. CT scan of the abdomen and pelvis demonstrates fluid-filled colon and small bowel most likely representing an enterocolitis. No mass was seen. RECOMMENDATIONS: The patient is stable from a GI standpoint. His anemia is most likely multifactorial including bone marrow suppression from longstanding alcoholism. Of note, the patient does have a low platelet count. He has been instructed to follow up in the medical clinic for an elective outpatient colonoscopy. He has been instructed to return to the hospital should he have any further rectal bleeding or hematemesis. João Diamond MD
[2018-05-12] MEDS ORDERED: Morphine 2 mg/ml ISec IVP STA (16:29)
[2018-05-13 07:12] LABS: BASO # 0.02 K/mm3 (0.0-2.0); BASO % 0.3 % (0.0-3.0); EOS # 0.1 (0.0-0.7); EOS % 1.1 % (1.5-5.0); GRAN # 3.84 (1.4-6.5); GRAN % 54.7 % (50.0-68.0); HEMOGLOBIN 7.2 g/dL (14.0-18.0); LYMPH # 2.6 (1.2-3.4); LYMPH % 36.9 % (22.0-35.0); MEAN CELL VOLUME 101.8 fl (80.0-105.0); MEAN CORPUSCULAR HEMOGLOBIN 33.2 pg (25.0-35.0); MEAN CORPUSCULAR HGB CONC 32.6 g/dl (31.0-37.0); MEAN PLATELET VOLUME 10.8 fl (7.0-11.0); MONO # 0.5 (0.1-0.6); RBC 2.17 10^6/uL (3.5-6.1); RED CELL DISTRIBUTION WIDTH 15.7 % (11.5-14.5)
[2018-05-13 07:20] LABS: ALB/GLOB RATIO 0.9 (1.1-1.8); ALBUMIN 2.4 g/dL (3.0-4.8); ALT/SGPT 35 U/L (7-56); AST/SGOT 35 U/L (17-59); BLOOD UREA NITROGEN 17 mg/dL (7-21); CALCIUM 8.7 mg/dL (8.4-10.5); GFR NON-AFRICAN AMERICAN > 60
[2018-05-13] MEDS: Multivitamin With Minerals Tab PO SCH (08:07)
[2018-05-13 10:55] LABS: BASO # 0.01 K/mm3 (0.0-2.0); BASO % 0.1 % (0.0-3.0); EOS # 0.1 (0.0-0.7); EOS % 1.3 % (1.5-5.0); GRAN # 4.29 (1.4-6.5); GRAN % 60.9 % (50.0-68.0); HEMOGLOBIN 7.2 g/dL (14.0-18.0); LYMPH # 2.3 (1.2-3.4); LYMPH % 31.9 % (22.0-35.0); MEAN CELL VOLUME 102.3 fl (80.0-105.0); MEAN CORPUSCULAR HEMOGLOBIN 32.9 pg (25.0-35.0); MEAN CORPUSCULAR HGB CONC 32.1 g/dl (31.0-37.0); MEAN PLATELET VOLUME 10.6 fl (7.0-11.0); MONO # 0.4 (0.1-0.6); MONO % 5.8 % (1.0-6.0); RBC 2.19 10^6/uL (3.5-6.1); RED CELL DISTRIBUTION WIDTH 15.7 % (11.5-14.5); WHITE BLOOD COUNT 7.1 10^3/ul (4.5-11.0)
--- NOTE | 2018-05-13 13:05 | CP.PCM.PN ---
<Dheeraj Henriquez - Last Filed: 05/13/18 14:26> Subjective - Date & Time of Evaluation Date of Evaluation: 05/13/18 Time of Evaluation: 12:55 - Subjective Subjective: Resident Dheeraj Henriquez DO PGY-1 Hospitalist Progress Note For: Dr. Mario Humphrey Pt was seen and examined this morning at bedside. Pt states that he is feeling much better and denies any acute overnight events. He reports being able to tolerate his diet with no associated nausea or vomiting. He denies fevers, chills, lightheadedness, fatigue, weakness, or dizziness. He denies having any BMs at this point. He also states he hasnt had any hematemesis. Objective - Vital Signs/Intake and Output Vital Signs (last 24 hours): Temp Pulse Resp BP Pulse Ox 98.8 F 69 18 101/62 100 05/13/18 11:52 05/13/18 11:52 05/13/18 11:52 05/13/18 11:52 05/13/18 05:37 Intake and Output: 05/13/18 05/13/18 06:59 18:59 Intake Total 1620 Output Total 400 Balance 1220 - Medications Medications: Current Medications Acetaminophen (Tylenol 325mg Tab) 650 mg PO Q4H PRN PRN Reason: Fever >100.4 F Folic Acid (Folic Acid) 1 mg PO DAILY [facility] Last Admin: 05/13/18 09:19 Dose: 1 mg Lorazepam (Ativan) 1 mg IVP Q2H PRN; Protocol PRN Reason: Anxiety Multivitamins/Minerals (Therapeutic-M Tab) 1 tab PO 0800 [facility] Last Admin: 05/13/18 08:07 Dose: 1 tab Nicotine (Nicoderm Cq) 1 patch TD DAILY [facility] Last Admin: 05/13/18 09:19 Dose: 1 patch Ondansetron HCl (Zofran Inj) 4 mg IVP Q4H PRN PRN Reason: Nausea/Vomiting Last Admin: 05/11/18 05:22 Dose: 4 mg Pantoprazole Sodium (Protonix Inj) 40 mg IVP Q12 [facility] Last Admin: 05/13/18 09:26 Dose: 40 mg Thiamine HCl (Vitamin B1 Tab) 100 mg PO DAILY [facility] Last Admin: 05/13/18 09:19 Dose: 100 mg - Labs Labs: 05/13/18 10:30 05/13/18 06:00 PT 15.8 SECONDS (9.4-12.5) H 05/10/18 07:00 INR 1.37 05/10/18 07:00 APTT 32.0 Seconds (25.1-36.5) 05/10/18 07:00 - Constitutional Appears: Well, Non-toxic, No Acute Distress - Head Exam Head Exam: ATRAUMATIC, NORMAL INSPECTION, NORMOCEPHALIC - Eye Exam Eye Exam: EOMI, Normal appearance, PERRL - Respiratory Exam Respiratory Exam: Clear to Ausculation Bilateral, NORMAL BREATHING PATTERN. absent: Accessory Muscle Use, Rales, Rhonchi, Wheezes, Respiratory Distress - Cardiovascular Exam Cardiovascular Exam: REGULAR RHYTHM, +S1, +S2. absent: Tachycardia - GI/Abdominal Exam GI & Abdominal Exam: Soft, Normal Bowel Sounds. absent: Guarding, Rigid, Tenderness - Extremities Exam Extremities Exam: Full ROM, Normal Inspection. absent: Calf Tenderness, Pedal Edema - Neurological Exam Neurological Exam: Alert, Awake, Oriented x3 - Psychiatric Exam Psychiatric exam: Normal Affect, Normal Mood - Skin Skin Exam: absent: Dry, Intact, Normal Color, Warm Assessment and Plan - Assessment and Plan (Free Text) Assessment: Pt is a 42yo M with pmhx of HTN and alcoholism who presents for hematemesis and EtOH withdrawl. CIWA score is 0 upon exam, he has H&H that is trending down from 7.8 to 7.2. He has not had any BMs since yesterday. He is not tachycardic, hypotensive notr having any lightheadedness, weakness, or fatigue. He is no longer having any abdominal pain. Plan: 1. Hematemesis - Resolved - No further episodes of vomiting since admission - Cont pt on Protonix - Zofran 4mg Q4H IVP PRN for N/V - Tolerating regular diet - H&H dropping from 7.8 to 7.2 - GI consulted, all recommendations appreciated * GI recommends to transfuse 2 units PRBC * Will do colonoscopy tomorrow 2. Alcohol Abuse - CIWA 0 -Alcohol: <10 -Last drink reportedly 24 hours prior to presentation -Ativan 1mg Q2H PRN -Thiamine 100mg po qd, folic acid 1mg po qd, MV 1 tab po qd -Administered vitamin b12 IM due to low-normal vitamin b12 level -CIWA protocol - most recently has been 0 -Aspiration, fall and seizure precautions -Cessation recommendations provided 3. Hypomagnesemia - Resolved - Most recent mag level is 2.0 - Continue to monitor with daily magnesium levels 4. Hypokalemia - Resolved -No EKG changes noted - Recent K is 5.0 -Continue to monitor with daily CMP's 5. Tobacco Use Disorder -Nicoderm CQ TD daily -Cessation recommendations provided 6. Prophylaxis: -Protonix -SCD's <Danielle Humphrey R - Last Filed: 05/13/18 21:35> Objective - Vital Signs/Intake and Output Vital Signs (last 24 hours): Temp Pulse Resp BP Pulse Ox 99.3 F 67 18 100/59 L 100 05/13/18 20:02 05/13/18 20:02 05/13/18 20:02 05/13/18 20:02 05/13/18 05:37 Intake and Output: 05/13/18 05/14/18 18:59 06:59 Intake Total 1005 1165 Balance 1005 1165 - Medications Medications: Current Medications Acetaminophen (Tylenol 325mg Tab) 650 mg PO Q4H PRN PRN Reason: Fever >100.4 F Folic Acid (Folic Acid) 1 mg PO DAILY [facility] Last Admin: 05/13/18 09:19 Dose: 1 mg Lorazepam (Ativan) 1 mg IVP Q2H PRN; Protocol PRN Reason: Anxiety Last Admin: 05/13/18 20:53 Dose: 1 mg Multivitamins/Minerals (Therapeutic-M Tab) 1 tab PO 0800 [facility] Last Admin: 05/13/18 08:07 Dose: 1 tab Nicotine (Nicoderm Cq) 1 patch TD DAILY [facility] Last Admin: 05/13/18 09:19 Dose: 1 patch Ondansetron HCl (Zofran Inj) 4 mg IVP Q4H PRN PRN Reason: Nausea/Vomiting Last Admin: 05/11/18 05:22 Dose: 4 mg Pantoprazole Sodium (Protonix Ec Tab) 40 mg PO 0600,1700 [facility] Last Admin: 05/13/18 17:24 Dose: 40 mg Thiamine HCl (Vitamin B1 Tab) 100 mg PO DAILY [facility] Last Admin: 05/13/18 09:19 Dose: 100 mg - Labs Labs: 05/13/18 10:30 05/13/18 06:00 PT 15.8 SECONDS (9.4-12.5) H 05/10/18 07:00 INR 1.37 05/10/18 07:00 APTT 32.0 Seconds (25.1-36.5) 05/10/18 07:00 Attending/Attestation - Attestation I have personally seen and examined this patient.: Yes I have fully participated in the care of the patient.: Yes I have reviewed all pertinent clinical information, including history, physical exam and plan: Yes Notes (Text): Patient seen and examined by me with resident at 10:20AM with resident. Case including HPI, physical exam, and assessment and plan discussed with resident. Agree with above with following additions/corrections. Patient is a 42-year-old male with past medical history significant for alcohol abuse and hypertension that presented to the emergency room with hematemesis. Patient states he is feeling pretty good. States he had a bloody bowel movements have resolved. Abdominal pain has resolved. No nausea or vomiting. Patient states he is tolerating diet well. No chest pain or shortness of breath. No headaches or dizziness. No fevers or chills. No dysuria. Physical exam: General: Awake and alert lying in bed in no acute distress HEENT: Normocephalic, atraumatic. Extraocular muscles intact, pupils equal and reactive, no scleral icterus. Oropharynx is pink and moist. Neck is supple. Cardiovascular: Normal rhythm. Normal S1, S2. No murmurs, rubs, or gallops appreciated Pulmonary: Normal respiratory effort. No rhonchi, rales, or wheezing appreciated. Gastrointestinal: Soft, Nondistended. Nontender. Positive bowel sounds all 4 quadrants. No guarding. Musculoskeletal: Moves all extremities. No edema appreciated. No calf tenderness. Central nervous system: AAO x3 Dermatologic: Skin warm and dry. Assessment and plan: Patient is a 42-year-old male with past medical history significant for alcohol abuse and hypertension that presented to the emergency room with hematemesis. 1. Hematemesis. Resolved. Likely secondary to alcohol-induced gastritis versus mucosal tear from vomiting. H&H downtrending. Patient being transfused 2 units PRBCs today per GI. For colonoscopy on 05/15/18. Continue with Protonix. Continue to monitor CBC. 2. Rectal bleeding. Stool for occult blood positive. H&H downtrending. No bloody bowel movement today. GI following, recommendations appreciated. Patient being transfused 2 units PRBCs today per GI. Patient to have colonoscopy on 05/15/18. Continue to monitor CBC. 3. Alcohol abuse/withdrawal. No current withdrawal symptoms. Scoring zero on CIWA. Continue thiamine, folic acid, and multivitamin. Patient counseled at length on alcohol cessation. 4. Hypokalemia and hypomagnesemia. Resolved. Continue to monitor. 5. Tobacco abuse. Patient counseled on cessation. Continue with Nicoderm patch. Case was discussed in detail with the patient regarding current diagnosis and treatment plan. All questions answered.
--- NOTE | 2018-05-13 16:21 | PN ---
DATE: 05/13/2018 SUBJECTIVE: The patient is walking around in his room. He denies any further rectal bleeding. He denies hematemesis or abdominal pain. He hemoglobin continues to trend downwards, this morning is down to 7.2. PHYSICAL EXAMINATION: VITAL SIGNS: Reveal temperature of 98.4, blood pressure 100/57, heart rate 74. HEENT: Reveal sclerae to be white. Conjunctivae pink. NECK: Supple. CHEST: Lungs are clear. HEART: Reveals regular rate and rhythm. ABDOMEN: Soft, nontender. EXTREMITIES: Show no edema. There are no tremors. LABORATORY DATA: Reveals normal electrolytes. BUN 17, creatinine 0.8. Hemoglobin is 7.2. IMPRESSION: A 42-year-old male with an episode of rectal bleeding with anemia, status post delirium tremors, admitted with hematemesis without any further vomiting blood. He does have a family history of colon cancer due to persistently dropping blood count. We will transfuse the patient 2 units of packed red blood cells and schedule him for a colonoscopy. João Diamond MD
[2018-05-13] MEDS: Pantoprazole 40 mg EC Tab PO SCH (17:24)
[2018-05-14] MEDS: Pantoprazole 40 mg EC Tab PO SCH ×2 (05:06→17:00)
[2018-05-14 06:32] LABS: BASO # 0.01 K/mm3 (0.0-2.0); BASO % 0.1 % (0.0-3.0); EOS # 0.1 (0.0-0.7); EOS % 1.2 % (1.5-5.0); GRAN # 4.74 (1.4-6.5); GRAN % 59.2 % (50.0-68.0); HEMOGLOBIN 8.9 g/dL (14.0-18.0); LYMPH # 2.6 (1.2-3.4); LYMPH % 32.8 % (22.0-35.0); MEAN CELL VOLUME 95.1 fl (80.0-105.0); MEAN CORPUSCULAR HEMOGLOBIN 31.1 pg (25.0-35.0); MEAN CORPUSCULAR HGB CONC 32.7 g/dl (31.0-37.0); MEAN PLATELET VOLUME 10.5 fl (7.0-11.0); MONO # 0.5 (0.1-0.6); MONO % 6.7 % (1.0-6.0); RBC 2.86 10^6/uL (3.5-6.1); RED CELL DISTRIBUTION WIDTH 19.2 % (11.5-14.5)
[2018-05-14 08:29] LABS: ALBUMIN 2.5 g/dL (3.0-4.8); BLOOD UREA NITROGEN 19 mg/dL (7-21); CALCIUM 8.1 mg/dL (8.4-10.5); GFR NON-AFRICAN AMERICAN > 60
[2018-05-14 08:30] LABS: ALB/GLOB RATIO 0.8 (1.1-1.8); ALT/SGPT 35 U/L (7-56); AST/SGOT 33 U/L (17-59)
[2018-05-14] MEDS: Multivitamin With Minerals Tab PO SCH (08:49)
--- NOTE | 2018-05-14 09:14 | CP.PCM.PN ---
<Dheeraj Henriquez - Last Filed: 05/14/18 13:27> Subjective - Date & Time of Evaluation Date of Evaluation: 05/14/18 Time of Evaluation: 09:10 - Subjective Subjective: Resident Dheeraj Henriquez DO PGY-1 Hospitalist Progress Note For: Dr. Dat Concepcion Pt was seen and examined this AM at bedside. He states that he is feeling better and on liquid diet for colonoscopy tomorrow. He was transfused with 2 units PRBCs yesterday. He states that he had 1 BM yesterday which was non-bloody. He continues to deny lightheadedness, weakness, dizziness. He denies any acute complaints at this time. Objective - Vital Signs/Intake and Output Vital Signs (last 24 hours): Temp Pulse Resp BP Pulse Ox 98.4 F 56 L 20 117/67 100 05/14/18 05:44 05/14/18 05:44 05/14/18 05:44 05/14/18 05:44 05/13/18 05:37 Intake and Output: 05/14/18 05/14/18 06:59 18:59 Intake Total 1585 Output Total 4 Balance 1581 - Medications Medications: Current Medications Acetaminophen (Tylenol 325mg Tab) 650 mg PO Q4H PRN PRN Reason: Fever >100.4 F Folic Acid (Folic Acid) 1 mg PO DAILY [facility] Last Admin: 05/13/18 09:19 Dose: 1 mg Lorazepam (Ativan) 1 mg IVP Q2H PRN; Protocol PRN Reason: Anxiety Last Admin: 05/13/18 20:53 Dose: 1 mg Multivitamins/Minerals (Therapeutic-M Tab) 1 tab PO 0800 [facility] Last Admin: 05/14/18 08:49 Dose: 1 tab Nicotine (Nicoderm Cq) 1 patch TD DAILY [facility] Last Admin: 05/13/18 09:19 Dose: 1 patch Ondansetron HCl (Zofran Inj) 4 mg IVP Q4H PRN PRN Reason: Nausea/Vomiting Last Admin: 05/11/18 05:22 Dose: 4 mg Pantoprazole Sodium (Protonix Ec Tab) 40 mg PO 0600,1700 [facility] Last Admin: 05/14/18 05:06 Dose: 40 mg Polyethylene Glycol/Electrolytes (Golytely) 4,000 ml PO ONCE ONE Stop: 05/14/18 14:01 Thiamine HCl (Vitamin B1 Tab) 100 mg PO DAILY [facility] Last Admin: 05/13/18 09:19 Dose: 100 mg - Labs Labs: 05/14/18 06:00 05/14/18 06:00 PT 15.8 SECONDS (9.4-12.5) H 05/10/18 07:00 INR 1.37 05/10/18 07:00 APTT 32.0 Seconds (25.1-36.5) 05/10/18 07:00 - Constitutional Appears: Well, Non-toxic, No Acute Distress - Head Exam Head Exam: ATRAUMATIC, NORMAL INSPECTION, NORMOCEPHALIC - Eye Exam Eye Exam: EOMI, Normal appearance, PERRL - Respiratory Exam Respiratory Exam: Clear to Ausculation Bilateral, NORMAL BREATHING PATTERN. absent: Accessory Muscle Use, Rales, Rhonchi, Wheezes - Cardiovascular Exam Cardiovascular Exam: REGULAR RHYTHM, +S1, +S2. absent: Gallop, Rubs - GI/Abdominal Exam GI & Abdominal Exam: Soft, Normal Bowel Sounds. absent: Guarding, Rigid, Tenderness - Extremities Exam Extremities Exam: Full ROM, Normal Capillary Refill, Normal Inspection. absent: Calf Tenderness - Back Exam Back Exam: NORMAL INSPECTION. absent: CVA tenderness (L), CVA tenderness (R) - Neurological Exam Neurological Exam: Alert, Awake, Normal Gait, Oriented x3 - Psychiatric Exam Psychiatric exam: Normal Affect, Normal Mood - Skin Skin Exam: Dry, Intact, Normal Color, Warm Assessment and Plan - Assessment and Plan (Free Text) Assessment: Pt is a 42yo M with pmhx of HTN and alcoholism who presents for hematemesis and EtOH withdrawl. CIWA score is 0 upon exam, he has H&H has responded appropriately to the 2 units of PRBCs given H&H is now 8.9 and 27.2. Will go for EGD and colonoscopy tomorrow in AM with Dr. Diamond. Plan: 1. Hematemesis - Resolved - No further episodes of vomiting since admission - Cont pt on Protonix - Zofran 4mg Q4H IVP PRN for N/V - H&H responded appropriately to 2 unit PRBC transfusion and is now at 8.9 - GI consulted, all recommendations appreciated * Will go for EGD and Colonoscopy in AM 2. Alcohol Abuse - CIWA 0 -Alcohol: <10 -Last drink reportedly 24 hours prior to presentation -Ativan 1mg Q2H PRN -Thiamine 100mg po qd, folic acid 1mg po qd, MV 1 tab po qd -Administered vitamin b12 IM due to low-normal vitamin b12 level -CIWA protocol - most recently has been 0 -Aspiration, fall and seizure precautions -Cessation recommendations provided 3. Hypomagnesemia - Resolved - Most recent mag level is 2.0 - Continue to monitor with daily magnesium levels 4. Hypokalemia - Resolved -No EKG changes noted - Recent K is 5.0 -Continue to monitor with daily CMP's 5. Tobacco Use Disorder -Nicoderm CQ TD daily -Cessation recommendations provided 6. Prophylaxis: -Protonix -SCDs <Crow Concepcion - Last Filed: 05/15/18 17:53> Objective - Vital Signs/Intake and Output Vital Signs (last 24 hours): Temp Pulse Resp BP Pulse Ox 98.3 F 48 L 18 113/71 99 05/15/18 12:00 05/15/18 12:00 05/15/18 12:00 05/15/18 12:00 05/15/18 11:15 Intake and Output: 05/15/18 05/15/18 06:59 18:59 Intake Total 0 Balance 0 - Labs Labs: 05/15/18 08:00 05/15/18 08:00 PT 15.8 SECONDS (9.4-12.5) H 05/10/18 07:00 INR 1.37 05/10/18 07:00 APTT 32.0 Seconds (25.1-36.5) 05/10/18 07:00 Attending/Attestation - Attestation I have personally seen and examined this patient.: Yes I have fully participated in the care of the patient.: Yes I have reviewed all pertinent clinical information, including history, physical exam and plan: Yes Notes (Text): Pt is a 42yo M with pmhx of HTN and alcoholism who presents for hematemesis and EtOH withdrawl. plan for EGD
[2018-05-14] MEDS ORDERED: Peg-Electrolyte Oral Soln 4L (Golytely) PO ONE (14:00)
[2018-05-14 22:09] LABS: BASO # 0.03 K/mm3 (0.0-2.0); BASO % 0.3 % (0.0-3.0); EOS # 0.1 (0.0-0.7); EOS % 0.7 % (1.5-5.0); GRAN # 4.41 (1.4-6.5); GRAN % 47.1 % (50.0-68.0); HEMOGLOBIN 8.7 g/dL (14.0-18.0); LYMPH # 3.6 (1.2-3.4); LYMPH % 38.2 % (22.0-35.0); MEAN CELL VOLUME 96.1 fl (80.0-105.0); MEAN CORPUSCULAR HEMOGLOBIN 31.1 pg (25.0-35.0); MEAN CORPUSCULAR HGB CONC 32.3 g/dl (31.0-37.0); MEAN PLATELET VOLUME 10.5 fl (7.0-11.0); MONO # 1.3 (0.1-0.6); MONO % 13.7 % (1.0-6.0); RBC 2.8 10^6/uL (3.5-6.1); RED CELL DISTRIBUTION WIDTH 18.5 % (11.5-14.5); WHITE BLOOD COUNT 9.4 10^3/ul (4.5-11.0)
--- NOTE | 2018-05-14 22:26 | PN ---
DATE: 05/14/2018 SUBJECTIVE: The patient denies any further rectal bleeding or diarrhea. He denies abdominal pain. He denies hematemesis. PHYSICAL EXAMINATION VITAL SIGNS: Reveal temperature of 98.7, blood pressure 114/72, heart rate 79. HEENT: Reveal sclerae to be white, conjunctivae pink. NECK: Supple. CHEST AND LUNGS: Clear. HEART: Reveals regular rate and rhythm. ABDOMEN: Soft, nontender. EXTREMITIES: Show no edema. LABORATORY DATA: Reveal hemoglobin up to 8.9 after transfusion of 2 units of packed red blood cells. BUN 19, creatinine 0.8. IMPRESSION: A 42-year-old alcoholic with anemia, episode of rectal bleeding, family history of colon cancer. RECOMMENDATIONS: The patient is scheduled for colonoscopy in the a.m. Bowel prep has been ordered. João Diamond MD
[2018-05-15] MEDS: Pantoprazole 40 mg EC Tab PO SCH (05:08)
[2018-05-15 08:21] LABS: BASO # 0.02 K/mm3 (0.0-2.0); BASO % 0.3 % (0.0-3.0); EOS # 0.1 (0.0-0.7); EOS % 1.5 % (1.5-5.0); GRAN # 3.63 (1.4-6.5); GRAN % 53.5 % (50.0-68.0); HEMOGLOBIN 8.4 g/dL (14.0-18.0); LYMPH # 2.5 (1.2-3.4); LYMPH % 36.1 % (22.0-35.0); MEAN CELL VOLUME 94.7 fl (80.0-105.0); MEAN CORPUSCULAR HEMOGLOBIN 31.8 pg (25.0-35.0); MEAN CORPUSCULAR HGB CONC 33.6 g/dl (31.0-37.0); MONO # 0.6 (0.1-0.6); MONO % 8.6 % (1.0-6.0); RBC 2.64 10^6/uL (3.5-6.1); RED CELL DISTRIBUTION WIDTH 18.4 % (11.5-14.5); WHITE BLOOD COUNT 6.8 10^3/ul (4.5-11.0)
[2018-05-15 08:36] LABS: ALB/GLOB RATIO 0.9 (1.1-1.8); ALBUMIN 2.5 g/dL (3.0-4.8); ALT/SGPT 50 U/L (7-56); AST/SGOT 65 U/L (17-59); BLOOD UREA NITROGEN 12 mg/dL (7-21); GFR NON-AFRICAN AMERICAN > 60
--- NOTE | 2018-05-15 08:45 | CP.PCM.PN ---
Subjective - Date & Time of Evaluation Date of Evaluation: 05/15/18 Time of Evaluation: 08:42 - Subjective Subjective: Resident Dheeraj Henriquez DO PGY-1 Hospitalist Progress Note For: Dr. Mario Humphrey Pt was seen and examined this AM at bedside. He states that he is feeling better and is NPO since midnight for expected scope and EGD this AM. He was transfused with 2 units PRBCs on 05/13 and responded appropriately to the transfusion. He continues to deny lightheadedness, weakness, dizziness, chest pain, palpitations or SOB. He denies any acute complaints at this time. Objective - Vital Signs/Intake and Output Vital Signs (last 24 hours): Temp Pulse Resp BP Pulse Ox 98.3 F 75 18 109/71 100 05/15/18 06:00 05/15/18 06:00 05/15/18 06:00 05/15/18 06:00 05/13/18 05:37 Intake and Output: 05/15/18 05/15/18 06:59 18:59 Intake Total 0 Balance 0 - Medications Medications: Current Medications Acetaminophen (Tylenol 325mg Tab) 650 mg PO Q4H PRN PRN Reason: Fever >100.4 F Folic Acid (Folic Acid) 1 mg PO DAILY [facility] Last Admin: 05/14/18 10:35 Dose: 1 mg Lorazepam (Ativan) 1 mg IVP Q2H PRN; Protocol PRN Reason: Anxiety Last Admin: 05/15/18 00:03 Dose: 1 mg Multivitamins/Minerals (Therapeutic-M Tab) 1 tab PO 0800 [facility] Last Admin: 05/14/18 08:49 Dose: 1 tab Nicotine (Nicoderm Cq) 1 patch TD DAILY [facility] Last Admin: 05/14/18 10:37 Dose: 1 patch Ondansetron HCl (Zofran Inj) 4 mg IVP Q4H PRN PRN Reason: Nausea/Vomiting Last Admin: 05/11/18 05:22 Dose: 4 mg Pantoprazole Sodium (Protonix Ec Tab) 40 mg PO 0600,1700 [facility] Last Admin: 05/15/18 05:08 Dose: Not Given Thiamine HCl (Vitamin B1 Tab) 100 mg PO DAILY [facility] Last Admin: 05/14/18 10:35 Dose: 100 mg - Labs Labs: 05/15/18 08:00 05/15/18 08:00 PT 15.8 SECONDS (9.4-12.5) H 05/10/18 07:00 INR 1.37 05/10/18 07:00 APTT 32.0 Seconds (25.1-36.5) 05/10/18 07:00 - Constitutional Appears: Well, Non-toxic, No Acute Distress - Head Exam Head Exam: ATRAUMATIC, NORMAL INSPECTION, NORMOCEPHALIC - Eye Exam Eye Exam: EOMI, Normal appearance, PERRL Pupil Exam: NORMAL ACCOMODATION - Respiratory Exam Respiratory Exam: Clear to Ausculation Bilateral, NORMAL BREATHING PATTERN. absent: Accessory Muscle Use, Rales, Rhonchi, Wheezes, Respiratory Distress - Cardiovascular Exam Cardiovascular Exam: REGULAR RHYTHM, +S1, +S2. absent: Gallop, Rubs - GI/Abdominal Exam GI & Abdominal Exam: Soft, Normal Bowel Sounds. absent: Rigid, Tenderness - Extremities Exam Extremities Exam: Full ROM, Normal Inspection. absent: Calf Tenderness, Pedal Edema, Tenderness - Neurological Exam Neurological Exam: Alert, Awake, Oriented x3 - Psychiatric Exam Psychiatric exam: Normal Affect, Normal Mood - Skin Skin Exam: Dry, Intact, Normal Color, Warm Assessment and Plan - Assessment and Plan (Free Text) Assessment: Pt is a 42yo M with pmhx of HTN and alcoholism who presents for hematemesis and EtOH withdrawl. CIWA score is 0 upon exam, he has H&H has responded appropriately to the 2 units of PRBCs given H&H is now 8.4 from 8.7. Scheduled for EGD and colonoscopy today with Dr. Diamond. Plan: 1. Hematemesis - Resolved - No further episodes of vomiting since admission - Cont pt on Protonix - Zofran 4mg Q4H IVP PRN for N/V - H&H responded appropriately to 2 unit PRBC transfusion and is now at 8.4 - GI consulted, all recommendations appreciated * Will go for EGD and Colonoscopy today 2. Alcohol Abuse - [facility] 0 -Alcohol: <10 -Last drink reportedly 24 hours prior to presentation -Ativan 1mg Q2H PRN -Thiamine 100mg po qd, folic acid 1mg po qd, MV 1 tab po qd -Administered vitamin b12 IM due to low-normal vitamin b12 level -[facility] protocol - most recently has been 0 -Aspiration, fall and seizure precautions -Cessation recommendations provided 3. Hypomagnesemia - Resolved - Most recent mag level is 2.0 - Continue to monitor with daily magnesium levels 4. Hypokalemia - Resolved -No EKG changes noted - Recent K is 5.0 -Continue to monitor with daily CMP's 5. Tobacco Use Disorder -Nicoderm CQ TD daily -Cessation recommendations provided 6. Prophylaxis: -Protonix -SCDs
[2018-05-15] MEDS ORDERED: Midazolam 2 MG/2 ML VIAL ONE (09:31)
[2018-05-15] MEDS ORDERED: Propofol 10 mg/ml Inj (20 ML) ONE (09:31)
[2018-05-15] MEDS ORDERED: Sodium Chloride 0.9% 1,000 ML IV SCH (10:45)
[2018-05-15 10:50] VITALS: RESP 18; O2SAT 99
[2018-05-15] MEDS ORDERED: Sucralfate 1 gm/10 ml Oral Susp UD PO SCH (11:30)
[2018-05-15 12:28] VITALS: BP 113/71; PULSE 48; TEMP 98.3
--- NOTE | 2018-05-15 15:57 | CP.PCM.DIS ---
<Dheeraj Henriquez - Last Filed: 05/15/18 17:16> Provider - Provider Date of Admission: 05/09/18 19:04 Attending physician: Danielle Humphrey DO Time Spent in preparation of Discharge (in minutes): 45 Hospital Course - Lab Results Lab Results: Micro Results 05/11/18 12:30 Stool Stool Culture - Final NO SALMONELLA, SHIGELLA OR CAMPYLOBACTER ISOLATED. 05/11/18 12:30 Stool Ova and Parasite Concentrate Exam - Final 05/09/18 21:40 Urine,Clean Catch Urine Culture - Final No Growth (<1,000 CFU/ML) Most Recent Lab Values WBC 6.8 10^3/ul (4.5-11.0) D 05/15/18 08:00 RBC 2.64 10^6/uL (3.5-6.1) L 05/15/18 08:00 Hgb 8.4 g/dL (14.0-18.0) L 05/15/18 08:00 Hct 25.0 % (42.0-52.0) L 05/15/18 08:00 MCV 94.7 fl (80.0-105.0) 05/15/18 08:00 MCH 31.8 pg (25.0-35.0) 05/15/18 08:00 MCHC 33.6 g/dl (31.0-37.0) 05/15/18 08:00 RDW 18.4 % (11.5-14.5) H 05/15/18 08:00 Plt Count 162 10^3/uL (120.0-450.0) 05/15/18 08:00 MPV 10.0 fl (7.0-11.0) 05/15/18 08:00 Gran % 53.5 % (50.0-68.0) 05/15/18 08:00 Lymph % (Auto) 36.1 % (22.0-35.0) H 05/15/18 08:00 Weld % (Auto) 8.6 % (1.0-6.0) H 05/15/18 08:00 Eos % (Auto) 1.5 % (1.5-5.0) 05/15/18 08:00 Baso % (Auto) 0.3 % (0.0-3.0) 05/15/18 08:00 Gran # 3.63 (1.4-6.5) 05/15/18 08:00 Lymph # (Auto) 2.5 (1.2-3.4) 05/15/18 08:00 Weld # (Auto) 0.6 (0.1-0.6) 05/15/18 08:00 Eos # (Auto) 0.1 (0.0-0.7) 05/15/18 08:00 Baso # (Auto) 0.02 K/mm3 (0.0-2.0) 05/15/18 08:00 PT 15.8 SECONDS (9.4-12.5) H 05/10/18 07:00 INR 1.37 05/10/18 07:00 APTT 32.0 Seconds (25.1-36.5) 05/10/18 07:00 Sodium 136 mmol/L (132-148) 05/15/18 08:00 Potassium 4.1 mmol/L (3.6-5.0) 05/15/18 08:00 Chloride 100 mmol/L (98-107) 05/15/18 08:00 Carbon Dioxide 33 mmol/L (21-33) 05/15/18 08:00 Anion Gap 7 (10-20) L 05/15/18 08:00 BUN 12 mg/dL (7-21) 05/15/18 08:00 Creatinine 0.8 mg/dl (0.8-1.5) 05/15/18 08:00 Est GFR ( Amer) > 60 05/15/18 08:00 Est GFR (Non-Af Amer) > 60 05/15/18 08:00 Random Glucose 100 mg/dL (70-110) 05/15/18 08:00 Calcium 8.0 mg/dL (8.4-10.5) L 05/15/18 08:00 Phosphorus 3.3 mg/dL (2.5-4.5) 05/15/18 08:00 Magnesium 1.9 mg/dL (1.7-2.2) 05/15/18 08:00 Iron 171 ug/dL (45-180) 05/09/18 17:45 TIBC 305 ug/dL (261-462) 05/09/18 17:45 % Saturation 56 % (20-55) H 05/09/18 17:45 Total Bilirubin 0.8 mg/dL (0.2-1.3) 05/15/18 08:00 AST 65 U/L (17-59) H D 05/15/18 08:00 ALT 50 U/L (7-56) 05/15/18 08:00 Alkaline Phosphatase 139 U/L (38-126) H 05/15/18 08:00 Lactate Dehydrogenase 577 U/L (333-699) 05/09/18 17:30 Total Creatine Kinase 111 U/L (35-230) 05/09/18 17:30 Troponin I < 0.01 ng/mL 05/10/18 12:05 Total Protein 5.2 g/dL (5.8-8.3) L 05/15/18 08:00 Albumin 2.5 g/dL (3.0-4.8) L 05/15/18 08:00 Globulin 2.7 gm/dL 05/15/18 08:00 Albumin/Globulin Ratio 0.9 (1.1-1.8) L 05/15/18 08:00 Amylase 68 U/L (35-125) 05/09/18 17:30 Lipase < 10 U/L (23-300) L 05/09/18 17:30 Vitamin B12 296 pg/mL (239-931) 05/09/18 17:45 Folate 8.7 ng/mL 05/09/18 17:45 Urine Color Dark yellow (YELLOW) 05/09/18 19:24 Urine Appearance Clear (CLEAR) 05/09/18 19:24 Urine pH 8.5 (4.7-8.0) 05/09/18 19:24 Ur Specific [place] 1.010 (1.005-1.035) 05/09/18 19:24 Urine Protein 100 mg/dL (<30 mg/dL) H 05/09/18 19:24 Urine Glucose (UA) 100 mg/dL (NEGATIVE) H 05/09/18 19:24 Urine Ketones Trace mg/dL (NEGATIVE) H 05/09/18 19:24 Urine Blood Negative (NEGATIVE) 05/09/18 19:24 Urine Nitrate Negative (NEGATIVE) 05/09/18 19:24 Urine Bilirubin Negative (NEGATIVE) 05/09/18 19:24 Urine Urobilinogen 2.0 E.U./dL (<1 E.U./dL) H 05/09/18 19:24 Ur Leukocyte Esterase Trace Eliana/uL (NEGATIVE) H 05/09/18 19:24 Urine RBC 5 - 10 /hpf (0-2) 05/09/18 19:24 Urine WBC 5 - 10 /hpf (0-6) 05/09/18 19:24 Ur Epithelial Cells 6 - 8 /hpf (0-5) 05/09/18 19:24 Stool Occult Blood Positive (NEGATIVE) H 05/11/18 12:15 Stool Leukocytes, Qual Negative (NEGATIVE) 05/11/18 12:30 Urine Opiates Screen Negative (NEGATIVE) 05/09/18 19:24 Urine Methadone Screen Negative (NEGATIVE) 05/09/18 19:24 Ur Barbiturates Screen Negative (NEGATIVE) 05/09/18 19:24 Ur Phencyclidine Scrn Negative (NEGATIVE) 05/09/18 19:24 Ur Amphetamines Screen Negative (NEGATIVE) 05/09/18 19:24 U Benzodiazepines Scrn Negative (NEGATIVE) 05/09/18 19:24 U Oth Cocaine Metabols Negative (NEGATIVE) 05/09/18 19:24 U Cannabinoids Screen Negative (NEGATIVE) 05/09/18 19:24 Alcohol, Quantitative < 10 mg/dL (0-10) 05/09/18 17:30 Blood Type O POSITIVE 05/12/18 05:50 Blood Type Confirm O POSITIVE 05/12/18 05:50 Antibody Screen Negative 05/12/18 05:50 Crossmatch See Detail 05/12/18 05:50 BBK History Checked Patient has bt 05/12/18 05:50 - Hospital Course Hospital Course: Upon Admission: Pt is 42 year old homeless, alcoholic male with PMH of HTN, alcohol abuse who [place] [facility] [place]. Pt reports vomiting bright red blood three times today. Pt's at bedside and helped contribute to the history. Both admit to drinking multiple 4-Locos daily. His last drink was last night. Pt admits to heavy alcoholism. Pt has been seen at [facility] several times in the past for ETOH. He also reports lightheadedness and dizziness, and denies chest pain, dyspnea, SOB, abdominal pain, or blood in the stool. 12 point review of symptoms was obtained and added to HPI where appropriate. Hospital Course: GI was consulted and states that hematemesis is likely due to alcoholic-induced gastritis. Pt was stable and having stable H&H. Pt was then noted by nursing to have a currant jelly like bloody BM. CT was ordered which was suspicious for colitis. Pt was also noted to be dropping their H&H. Pt reported another bout of bloody BM's which was unable to be verified by nusring, but due to pts already dropping and low H&H decision was made by GI to transfuse with 2 units PRBCs and then pt was scheduled for inpatient colonoscopy. Colonoscopy was performed, as was EGD. EGD report states that the esophagus and stomach were normal, biopsies taken for H. pylori and a non-bleeding duodenal ulcer was found. Colonoscopy showed old red blood throughout the entire colon, but no source of bleeding was seen. Exam limited due to poor prep. Bleeding scan was performed which showed no evidence of acute GI bleed. Pt then became agitated and wished to sign out AMA. Pt is AOx3, ambulating and VS are stable. He does not want any further exams, tests, treatments or interventions at this facility. Pt states that he will purse treatment with his own PMD. He was informed of the risks of leaving AMA, including recurrence or worsening of GI bleed, heart attack and . Pt states he understands both the risks of leaving and benefits that would be provided by staying for adequate treatment but continues to want to leave AMA. He was informed to return to the ED if the symptoms returned, worsened or if new symptoms began. Discharge Exam - Head Exam Head Exam: ATRAUMATIC, NORMAL INSPECTION, NORMOCEPHALIC - Eye Exam Eye Exam: EOMI, Normal appearance Pupil Exam: NORMAL ACCOMODATION, PERRL - Respiratory Exam Respiratory Exam: NORMAL BREATHING PATTERN, UNREMARKABLE. absent: Accessory Muscle Use, Chest Wall Tenderness, Rales, Rhonchi, Wheezes - Cardiovascular Exam Cardiovascular Exam: RRR, +S1, +S2. absent: Diastolic murmur, Systolic Murmur - GI/Abdominal Exam GI & Abdominal Exam: Normal Bowel Sounds, Soft, Unremarkable. absent: Distended, Firm, Guarding, Mass, Rebound, Rigid, Tenderness - Rectal Exam Rectal Exam: Deferred - Extremities Exam Extremities exam: full ROM, normal capillary refill, normal inspection, tenderness - Back Exam Back exam: NORMAL INSPECTION. absent: CVA tenderness (L), CVA tenderness (R), paraspinal tenderness, tenderness - Neurological Exam Neurological exam: Alert, Normal Gait, Oriented x3 - Psychiatric Exam Psychiatric exam: Normal Affect, Normal Mood - Skin Skin Exam: Dry, Intact, Normal Color, Warm Discharge Plan - Discharge Medications Prescriptions: RX: Folic Acid 1 mg PO DAILY 30 Days #30 tab RX: Multimineral/Multivitamin [Therapeutic-M Tab] 1 tab PO 0800 30 Days #30 tab RX: Nicotine 14 mg/24 hr [Nicoderm CQ] 1 patch TD DAILY 14 Days #14 patch RX: Thiamine [Vitamin B1 Tab] 100 mg PO DAILY 30 Days #30 tab - Follow Up Plan Condition: STABLE Disposition: AGAINST MEDICAL ADVICE Instructions: Gastrointestinal Bleeding (DC), Alcohol Abuse and Alcoholism (DC), Acute Abdominal Pain (DC), Acute Abdominal Pain (GEN) Additional Instructions: Follow up with Dr Cr, outpatient within 3-4 days. Follow up with Gastroenterology doctor at [facility] within 3-4 days. Avoid alcohol, cigarettes. Take Multivitamin, thiamine and folate tablets daily. If any symptoms recur, please return to the nearest ED. Alcohol cessation is strongly advised. Please join AA meeting at the community. Per Dr. Diamond, you need to be on sucralfate solution 1gm QID, protonix 40 BID. Follow up with Dr. Diamond in 4 weeks for biopsy result. Avoid aspirin, ibuprofen, or other non-steroidal anti-inflammatory drugs for 2 weeks after the biopsy. repeat colonoscopy in 1 month because the bowel preparation was suboptimal. Referrals: [facility] [place] João Diamond MD [Staff Provider] - Juli Cr MD [Medical Doctor] - <Danielle Humphrey - Last Filed: 05/18/18 07:29> Provider - Provider Date of Admission: 05/09/18 19:04 Attending physician: Danielle Humphrey DO Hospital Course - Lab Results Lab Results: Micro Results 05/11/18 12:30 Stool Stool Culture - Final NO SALMONELLA, SHIGELLA OR CAMPYLOBACTER ISOLATED. 05/11/18 12:30 Stool Ova and Parasite Concentrate Exam - Final 05/09/18 21:40 Urine,Clean Catch Urine Culture - Final No Growth (<1,000 CFU/ML) Most Recent Lab Values WBC 6.8 10^3/ul (4.5-11.0) D 05/15/18 08:00 RBC 2.64 10^6/uL (3.5-6.1) L 05/15/18 08:00 Hgb 8.4 g/dL (14.0-18.0) L 05/15/18 08:00 Hct 25.0 % (42.0-52.0) L 05/15/18 08:00 MCV 94.7 fl (80.0-105.0) 05/15/18 08:00 MCH 31.8 pg (25.0-35.0) 05/15/18 08:00 MCHC 33.6 g/dl (31.0-37.0) 05/15/18 08:00 RDW 18.4 % (11.5-14.5) H 05/15/18 08:00 Plt Count 162 10^3/uL (120.0-450.0) 05/15/18 08:00 MPV 10.0 fl (7.0-11.0) 05/15/18 08:00 Gran % 53.5 % (50.0-68.0) 05/15/18 08:00 Lymph % (Auto) 36.1 % (22.0-35.0) H 05/15/18 08:00 Weld % (Auto) 8.6 % (1.0-6.0) H 05/15/18 08:00 Eos % (Auto) 1.5 % (1.5-5.0) 05/15/18 08:00 Baso % (Auto) 0.3 % (0.0-3.0) 05/15/18 08:00 Gran # 3.63 (1.4-6.5) 05/15/18 08:00 Lymph # (Auto) 2.5 (1.2-3.4) 05/15/18 08:00 Weld # (Auto) 0.6 (0.1-0.6) 05/15/18 08:00 Eos # (Auto) 0.1 (0.0-0.7) 05/15/18 08:00 Baso # (Auto) 0.02 K/mm3 (0.0-2.0) 05/15/18 08:00 PT 15.8 SECONDS (9.4-12.5) H 05/10/18 07:00 INR 1.37 05/10/18 07:00 APTT 32.0 Seconds (25.1-36.5) 05/10/18 07:00 Sodium 136 mmol/L (132-148) 05/15/18 08:00 Potassium 4.1 mmol/L (3.6-5.0) 05/15/18 08:00 Chloride 100 mmol/L (98-107) 05/15/18 08:00 Carbon Dioxide 33 mmol/L (21-33) 05/15/18 08:00 Anion Gap 7 (10-20) L 05/15/18 08:00 BUN 12 mg/dL (7-21) 05/15/18 08:00 Creatinine 0.8 mg/dl (0.8-1.5) 05/15/18 08:00 Est GFR ( Amer) > 60 05/15/18 08:00 Est GFR (Non-Af Amer) > 60 05/15/18 08:00 Random Glucose 100 mg/dL (70-110) 05/15/18 08:00 Calcium 8.0 mg/dL (8.4-10.5) L 05/15/18 08:00 Phosphorus 3.3 mg/dL (2.5-4.5) 05/15/18 08:00 Magnesium 1.9 mg/dL (1.7-2.2) 05/15/18 08:00 Iron 171 ug/dL (45-180) 05/09/18 17:45 TIBC 305 ug/dL (261-462) 05/09/18 17:45 % Saturation 56 % (20-55) H 05/09/18 17:45 Total Bilirubin 0.8 mg/dL (0.2-1.3) 05/15/18 08:00 AST 65 U/L (17-59) H D 05/15/18 08:00 ALT 50 U/L (7-56) 05/15/18 08:00 Alkaline Phosphatase 139 U/L (38-126) H 05/15/18 08:00 Lactate Dehydrogenase 577 U/L (333-699) 05/09/18 17:30 Total Creatine Kinase 111 U/L (35-230) 10/19/18 17:30 Troponin I < 0.01 ng/mL 05/10/18 12:05 Total Protein 5.2 g/dL (5.8-8.3) L 05/15/18 08:00 Albumin 2.5 g/dL (3.0-4.8) L 05/15/18 08:00 Globulin 2.7 gm/dL 05/15/18 08:00 Albumin/Globulin Ratio 0.9 (1.1-1.8) L 05/15/18 08:00 Amylase 68 U/L (35-125) 05/09/18 17:30 Lipase < 10 U/L (23-300) L 05/09/18 17:30 Vitamin B12 296 pg/mL (239-931) 05/09/18 17:45 Folate 8.7 ng/mL 05/09/18 17:45 Urine Color Dark yellow (YELLOW) 05/09/18 19:24 Urine Appearance Clear (CLEAR) 05/09/18 19:24 Urine pH 8.5 (4.7-8.0) 05/09/18 19:24 Ur Specific [place] 1.010 (1.005-1.035) 05/09/18 19:24 Urine Protein 100 mg/dL (<30 mg/dL) H 05/09/18 19:24 Urine Glucose (UA) 100 mg/dL (NEGATIVE) H 05/09/18 19:24 Urine Ketones Trace mg/dL (NEGATIVE) H 05/09/18 19:24 Urine Blood Negative (NEGATIVE) 05/09/18 19:24 Urine Nitrate Negative (NEGATIVE) 05/09/18 19:24 Urine Bilirubin Negative (NEGATIVE) 05/09/18 19:24 Urine Urobilinogen 2.0 E.U./dL (<1 E.U./dL) H 05/09/18 19:24 Ur Leukocyte Esterase Trace Eliana/uL (NEGATIVE) H 05/09/18 19:24 Urine RBC 5 - 10 /hpf (0-2) 05/09/18 19:24 Urine WBC 5 - 10 /hpf (0-6) 05/09/18 19:24 Ur Epithelial Cells 6 - 8 /hpf (0-5) 05/09/18 19:24 Stool Occult Blood Positive (NEGATIVE) H 05/11/18 12:15 Stool Leukocytes, Qual Negative (NEGATIVE) 05/11/18 12:30 Urine Opiates Screen Negative (NEGATIVE) 05/09/18 19:24 Urine Methadone Screen Negative (NEGATIVE) 05/09/18 19:24 Ur Barbiturates Screen Negative (NEGATIVE) 05/09/18 19:24 Ur Phencyclidine Scrn Negative (NEGATIVE) 05/09/18 19:24 Ur Amphetamines Screen Negative (NEGATIVE) 05/09/18 19:24 U Benzodiazepines Scrn Negative (NEGATIVE) 05/09/18 19:24 U Oth Cocaine Metabols Negative (NEGATIVE) 05/09/18 19:24 U Cannabinoids Screen Negative (NEGATIVE) 05/09/18 19:24 Alcohol, Quantitative < 10 mg/dL (0-10) 05/09/18 17:30 Blood Type O POSITIVE 05/12/18 05:50 Blood Type Confirm O POSITIVE 05/12/18 05:50 Antibody Screen Negative 05/12/18 05:50 Crossmatch See Detail 05/12/18 05:50 BBK History Checked Patient has bt 05/12/18 05:50 Attending/Attestation - Attestation I have personally seen and examined this patient.: Yes I have fully participated in the care of the patient.: Yes I have reviewed all pertinent clinical information, including history, physical exam and plan: Yes Notes (Text): Patient seen and examined by me with resident at 3:15PM on 05/15/18 with resident. Case including discharge plan discussed with resident. Agree with above with following additions/corrections. Patient is a 42-year-old male with past medical history significant for alcohol abuse and hypertension that presented to the emergency room with hematemesis. Pl ease see H&P for full details. Patient was admitted with hematemesis secondary to alcoholism and hypertension. Patient was initially placed on Protonix drip and octreotide drip. Patient was placed on banana bag. GI was consulted. CT abdomen and pelvis on 05/11/2018. Etiology showed fluid and debris filled colon and to lesser extent small bowel, in the appropriate clinical setting enterocolitis should be considered, no evidence of mechanical obstruction. Hemoglobin initially was stable. Protonic strip was continued and patient was placed on IV Protonix. Octreotide drip was also discontinued. Patient was placed on [facility] protocol for alcohol abuse and possible withdrawal. Patient was counseled at length on alcohol cessation. Patient was found to have hypomagnesemia and hypokalemia which did resolve with replacement. Hematemesis was likely secondary to alcohol-induced gastritis versus mucosal tear from vomiting. Patient was then found to have rectal bleeding with stool for occult blood being positive. H&H down trended to 7.2/22.4. Patient was transfused 2 units of packed blood cells. Patient had colonoscopy which showed blood in the entire examined colon, tortuous colon. It was recommended the patient have repeat colonoscopy in one month because the bowel preparation was suboptimal. Patient also had EGD which showed one nonbleeding duodenal ulcer with no stigmata of bleeding. It was recommended the patient not take aspirin, ibuprofen, naproxen, or other NSAIDs for 2 weeks after biopsy. Patient will need to follow-up for biopsy results with GI. Patient was feeling better and requests to sign out AGAINST MEDICAL ADVICE. Patient requested to sign out against medical advice. This action is against my medical advice to the patient and the decision was made with informed refusal. The patient was told that further work up and treatment is necessary and a full explanation of my rationale was given. The risks for leaving were explained to the patient and include but are not limited to increased mortality and morbidity, , and worsening of known or unknown conditions. Patient was AAOx3 and was able to make this informed decision and understood the clinical situation and my explanation of the risks of leaving. The patient voluntarily accepted these risks and signed an AMA form. The patient was given the opportunity to ask questions and reconsider. The patient was encouraged to return to the emergency room at any time for further treatment. Physical exam: General: Awake and alert lying in bed in no acute distress HEENT: Normocephalic, atraumatic. Extraocular muscles intact, pupils equal and reactive, no scleral icterus. Oropharynx is pink and moist. Neck is supple. Cardiovascular: Normal rhythm. Normal S1, S2. No murmurs, rubs, or gallops appreciated Pulmonary: Normal respiratory effort. No rhonchi, rales, or wheezing appreciated. Gastrointestinal: Soft, Nondistended. Nontender. Positive bowel sounds all 4 quadrants. No guarding. Musculoskeletal: Moves all extremities. No edema appreciated. No calf tenderness. Central nervous system: AAO x3, CN2-12 grossly intact. Dermatologic: Skin warm and dry. Please see chart for full details
--- NOTE | 2018-05-15 16:07 | NM ---
Date of service: 05/15/2018 PROCEDURE: Nuclear medicine gastrointestinal bleeding scan. HISTORY: GI bleed COMPARISON: None available. TECHNIQUE: 4ccof patient blood was withdrawn and mixed with 20.2mCi of technetium ultra tagged. Images of the abdomen and pelvis were obtained in the anterior and posterior projection at 1 min intervals over a period of 45 min. FINDINGS: No abnormal extravasation of tracer was observed throughout the exam to indicate active bleeding within or outside the gastrointestinal tract. Physiologic activity was seen in the heart, liver, spleen and blood vessels. IMPRESSION: No evidence of active gastrointestinal bleeding.
== END 2018-05-15 15:25 | disposition left against medical advice (07) | DRG 378 ==
LOC: ED 16:06 → ERH 19:04 → 2RSO 22:14
PROVIDERS: ADMIT Internal Medicine; ATTEND Hospitalist
PROC: 30233N1 Transfusion of Nonautologous Red Blood Cells into Peripheral Vein, Percutaneous Approach (ICD-10-PCS; 2018-05-13)
PROC: 0DB68ZX Excision of Stomach, Via Natural or Artificial Opening Endoscopic, Diagnostic (ICD-10-PCS; principal; 2018-05-15 09:30)
PROC: 0DJD8ZZ Inspection of Lower Intestinal Tract, Via Natural or Artificial Opening Endoscopic (ICD-10-PCS; 2018-05-15 09:30)
DX: K29.21 Alcoholic gastritis with bleeding (principal); F10.231 Alcohol dependence with withdrawal delirium; K26.9 Duodenal ulcer, unspecified as acute or chronic, without hemorrhage or perforation; I10 Essential (primary) hypertension; E83.42 Hypomagnesemia; E87.6 Hypokalemia; D64.9 Anemia, unspecified; K21.9 Gastro-esophageal reflux disease without esophagitis; F17.210 Nicotine dependence, cigarettes, uncomplicated; Z59.0 Homelessness; Z80.0 Family history of malignant neoplasm of digestive organs

== ENCOUNTER 2018-05-22 14:34 | Inpatient (IN) | payer MEDICAID, OTHER ==
[2018-05-22] MEDS ORDERED: Sodium Chloride 0.9% 1,000 ML IV STA (15:50)
[2018-05-22] MEDS ORDERED: Atrop/Hyosc/Scopal/PB Elixir (120 ml) PO STA (15:50)
[2018-05-22] MEDS ORDERED: Alum-Mag Hydrox-Simethicone Susp (30 mL) PO STA (15:50)
--- NOTE | 2018-05-22 15:58 | ED PDOC ---
Arrival/HPI - General Chief Complaint: GI Problem Time Seen by Provider: 05/22/18 14:37 Historian: Patient - History of Present Illness Narrative History of Present Illness (Text): 05/22/18 15:52 42 year old male, whose past medical history includes polysubstance abuse (alcohol and heroin), chronic gastritis, and homelessness, presents to the emergency department complaining of vomiting associated with abdominal pain for the past 5 days. Patient reports he was recently admitted on 05/09/18, but left against medical advice. He states every time he eats, he vomits it out. Patient reports minimal relief after taking Pepcid Bismol. He reports that he has not drank alcohol for the past 13 days. Patient denies any fever, chills, chest pain, shortness of breath, diarrhea, urinary symptoms, back pain, neck pain, headache, dizziness, or any other complaints. PMD: None Time/Duration: Other (5 days) Symptom Onset: Gradual Symptom Course: Unchanged Activities at Onset: Light Past Medical History - Provider Review Nursing Documentation Reviewed: Yes - Past History Past History: No Previous - Infectious Disease Hx of Infectious Diseases: None - Tetanus Immunization Tetanus Immunization: Unknown - Past Medical History Past Medical History: No Previous - Cardiac Hx Cardiac Disorders: Yes Hx Hypertension: Yes - Pulmonary Hx Respiratory Disorders: No - Neurological Hx Neurological Disorder: No - HEENT Hx HEENT Disorder: No - Renal Hx Renal Disorder: No - Endocrine/Metabolic Hx Endocrine Disorders: No - Hematological/Oncological Hx Blood Transfusions: No Hx Blood Transfusion Reaction: No - Integumentary Hx Dermatological Disorder: No - Musculoskeletal/Rheumatological Hx Falls: No - Gastrointestinal Hx Gastrointestinal Disorders: Yes Hx Gastroesophageal Reflux: Yes Hx Pancreatitis: Yes - Genitourinary/Gynecological Hx Genitourinary Disorders: No Hx Sexually Transmitted Diseases: No - Psychiatric Hx Psychophysiologic Disorder: Yes (ETOH ABUSE ,SMOKING) Hx Substance Use: No - Past Surgical History Past Surgical History: No Previous - Surgical History Hx Amputation: No Hx Appendectomy: No Hx Cardiac Catheterization: No Hx Cholecystectomy: No Hx Coronary Stent: No Hx Gastric Bypass Surgery: No Hx Hysterectomy: No Hx Joint Replacement: No Hx Kidney Transplant: No Hx Liver Transplant: No Hx Mastectomy: No Hx Musculoskeletal Surgery: No Hx Open Heart Surgery: No Hx Orthopedic Surgery: No Hx Splenectomy: No Hx Valve Replacement: No - Anesthesia Hx Anesthesia: Yes Hx Anesthesia Reactions: No Hx Malignant Hyperthermia: No - Suicidal Assessment Feels Threatened In Home Enviroment: No Family/Social History - Physician Review Nursing Documentation Reviewed: Yes Family/Social History: No Known Family HX Smoking Status: Current Some Days Smoker Hx Alcohol Use: Yes Amount per day: 24 Hx Substance Use: No Substance used: heroin Allergies/Home Meds Allergies/Adverse Reactions: Allergies No Known Allergies Allergy (Verified 04/14/18 23:37) Review of Systems - Physician Review All systems were reviewed & negative as marked: Yes - Review of Systems Constitutional: absent: Fevers, Other (Chills) Respiratory: absent: SOB Cardiovascular: absent: Chest Pain Gastrointestinal: Abdominal Pain, Nausea, Vomiting Genitourinary Male: absent: Dysuria, Frequency, Hematuria Musculoskeletal: absent: Back Pain, Neck Pain Neurological: absent: Headache, Dizziness Physical Exam Vital Signs Reviewed: Yes Temperature: Afebrile Blood Pressure: Normal Pulse: Regular Respiratory Rate: Normal Appearance: Positive for: Well-Appearing, Non-Toxic, Comfortable Pain Distress: None Mental Status: Positive for: Alert and Oriented X 3 - Systems Exam Head: Present: Atraumatic, Normocephalic Pupils: Present: PERRL Extroacular Muscles: Present: EOMI Conjunctiva: Present: Normal Mouth: Present: Moist Mucous Membranes Neck: Present: Normal Range of Motion Respiratory/Chest: Present: Clear to Auscultation, Good Air Exchange. No: Respiratory Distress, Accessory Muscle Use Cardiovascular: Present: Regular Rate and Rhythm, Normal S1, S2. No: Murmurs Abdomen: Present: Tenderness (Epigastric tenderness). No: Distention, Peritoneal Signs Back: Present: Normal Inspection Upper Extremity: Present: Normal Inspection. No: Cyanosis, Edema Lower Extremity: Present: Normal Inspection. No: Edema Neurological: Present: GCS=15, CN II-XII Intact, Speech Normal Skin: Present: Warm, Dry, Normal Color. No: Rashes Psychiatric: Present: Alert, Oriented x 3, Normal Insight, Normal Concentration Medical Decision Making ED Course and Treatment: 05/22/18 15:53 Impression: 42 year old male presents complaining of abdominal pain and vomiting after eating for the past 5 days. Plan: -- Labs -- Maalox, Elixir, Pepcid, Lidocaine, Zofran Inj, IV Fluids -- Urine Culture -- Urinalysis -- Reassess and disposition Prior Visits: Notes and results from previous visits were reviewed. Reviewed all patients charts and workups. Patient was last seen in the emergency department on 05/09/18 presents complaining of vomiting blood. Patient was admitted. Progress Notes: - Lab Interpretations I have reviewed the lab results: Yes - Scribe Statement The provider has reviewed the documentation as recorded by the Becca Molina Provider Scribe Attestation: All medical record entries made by the Becca were at my direction and personally dictated by me. I have reviewed the chart and agree that the record accurately reflects my personal performance of the history, physical exam, medical decision making, and the department course for this patient. I have also personally directed, reviewed, and agree with the discharge instructions and disposition. Disposition/Present on Arrival - Present on Arrival Any Indicators Present on Arrival: No History of DVT/PE: No History of Uncontrolled Diabetes: No Urinary Catheter: No History of Decub. Ulcer: No History Surgical Site Infection Following: None - Disposition Have Diagnosis and Disposition been Completed?: Yes Diagnosis: Abdominal pain, Anemia Disposition: HOSPITALIZED Disposition Time: 17:50 Condition: FAIR
[2018-05-22 17:05] LABS: URINE BILIRUBIN NEGATIVE (NEGATIVE); URINE BLOOD NEGATIVE (NEGATIVE); URINE GLUCOSE (UA) NEGATIVE (NEGATIVE); URINE LEUKOCYTE ESTERASE NEGATIVE Leu/uL (NEGATIVE); URINE PROTEIN NEGATIVE mg/dL (<30 mg/dL); URINE UROBILINOGEN 0.2 E.U./dL (<1 E.U./dL)
[2018-05-22 17:08] LABS: URINE APPEARANCE CLEAR (CLEAR)
[2018-05-22 17:10] LABS: BASO # 0.02 K/mm3 (0.0-2.0); BASO % 0.3 % (0.0-3.0); EOS # 0.1 (0.0-0.7); EOS % 1.1 % (1.5-5.0); GRAN # 3.73 (1.4-6.5); GRAN % 57.1 % (50.0-68.0); LYMPH # 2.4 (1.2-3.4); MEAN CELL VOLUME 94.3 fl (80.0-105.0); MEAN CORPUSCULAR HEMOGLOBIN 30.4 pg (25.0-35.0); MEAN CORPUSCULAR HGB CONC 32.3 g/dl (31.0-37.0); MONO # 0.4 (0.1-0.6); MONO % 5.5 % (1.0-6.0); RBC 2.3 10^6/uL (3.5-6.1); RED CELL DISTRIBUTION WIDTH 17.1 % (11.5-14.5); WHITE BLOOD COUNT 6.5 10^3/uL (4.5-11.0)
[2018-05-22 17:23] LABS: BENZODIAZEPINES, UR NEGATIVE (NEGATIVE)
[2018-05-22 17:25] LABS: ALB/GLOB RATIO 0.9 (1.1-1.8); ALBUMIN 2.6 g/dL (3.0-4.8); ALT/SGPT 37 U/L (7-56); AST/SGOT 43 U/L (17-59); BLOOD UREA NITROGEN 2 mg/dL (7-21); CALCIUM 8.1 mg/dL (8.4-10.5); GFR NON-AFRICAN AMERICAN > 60; LIPASE < 10 U/L (23-300)
[2018-05-22 17:27] LABS: BARBITURATES, UR NEGATIVE (NEGATIVE); OPIATES, UR NEGATIVE (NEGATIVE); PHENCYCLIDINE, UR NEGATIVE (NEGATIVE)
[2018-05-22] MEDS ORDERED: Morphine 2 mg/ml ISec IVP STA (19:48)
[2018-05-22] MEDS ORDERED: Sucralfate 1 gm/10 ml Oral Susp UD PO STA (19:54)
[2018-05-22] MEDS ORDERED: DiphenhydrAMINE 50 mg/ml Inj IVP STA (19:56)
[2018-05-22] MEDS ORDERED: MethylPREDNISolone 40 mg Vial IVP STA (19:56)
[2018-05-22] MEDS ORDERED: Sodium Chloride 0.9% 1,000 ML IV SCH (21:00)
[2018-05-22] MEDS ORDERED: Potassium Chloride 20 mEq ER Tab PO STA (21:34)
--- NOTE | 2018-05-22 22:04 | CP.PCM.HP ---
History of Present Illness - History of Present Illness History of Present Illness: HPI for Dr. Maya Florez, Hospitalist Service Erikbrandon Mariano PGY2 Chief Complaint: Abdominal pain with associated nausea and vomiting Patient is a 42 homeless M with a history of alcohol abuse and hypertension who presents with complaints of abdominal pain associated with nausea and vomiting. Patient states the abdominal pain began on Saturday however did not feel inclined to return to the hospital being it that he was just recently discharged for the same symptoms. Described abdominal pain as sharp rating it a 9/10 beginning t the umbilicus and extending bilaterally around his lower back. Patient states the pain is at times exacerbated by certain movements and relieved slightly when he rubs his stomach. On last admission patient was found to have gastritis negative for h pylori as well as a non-bleeding duodenal ulcer. Patient was then recommended to continue on protonix and carafate until next GI appointment in 4 weeks. PMD: none PMH: HTN, alcohol abuse PSH: denies FH: mother - DM, colon cancer SH: smokin/2 pack per day for 5 years, alcohol: drinks beer/4-Barry daily, drugs: cocaine Home meds: denies Present on Admission - Present on Admission Any Indicators Present on Admission: No Review of Systems - Constitutional Constitutional: absent: Chills, Fever - Cardiovascular Cardiovascular: absent: Chest Pain - Respiratory Respiratory: absent: Cough - Gastrointestinal Gastrointestinal: Nausea, Vomiting. absent: Diarrhea - Genitourinary Genitourinary: absent: Dysuria - Musculoskeletal Musculoskeletal: absent: Back Pain - Neurological Neurological: absent: Dizziness - Psychiatric Psychiatric: absent: Anxiety Past Patient History - Infectious Disease Hx of Infectious Diseases: None - Tetanus Immunizations Tetanus Immunization: Unknown - Past Social History Smoking Status: Current Some Days Smoker - CARDIAC Hx Cardiac Disorders: Yes Hx Hypertension: Yes - PULMONARY Hx Respiratory Disorders: No - NEUROLOGICAL Hx Neurological Disorder: No - HEENT Hx HEENT Problems: No - RENAL Hx Chronic Kidney Disease: No - ENDOCRINE/METABOLIC Hx Endocrine Disorders: No - HEMATOLOGICAL/ONCOLOGICAL Hx Blood Transfusions: No Hx Blood Transfusion Reaction: No - INTEGUMENTARY Hx Dermatological Problems: No - MUSCULOSKELETAL/RHEUMATOLOGICAL Hx Falls: No - GASTROINTESTINAL Hx Gastrointestinal Disorders: Yes Hx Gastroesophageal Reflux: Yes Hx Pancreatitis: Yes - GENITOURINARY/GYNECOLOGICAL Hx Genitourinary Disorders: No Hx Sexually Transmitted Disorders: No - PSYCHIATRIC Hx Psychophysiologic Disorder: Yes (ETOH ABUSE ,SMOKING) Hx Substance Use: No - SURGICAL HISTORY Hx Amputation: No Hx Appendectomy: No Hx Cardiac Catheterization: No Hx Cholecystectomy: No Hx Coronary Stent: No Hx Gastric Bypass Surgery: No Hx Hysterectomy: No Hx Joint Replacement: No Hx Kidney Transplant: No Hx Liver Transplant: No Hx Mastectomy: No Hx Musculoskeletal Surgery: No Hx Open Heart Surgery: No Hx Orthopedic Surgery: No Hx Splenectomy: No Hx Valve Replacement: No - ANESTHESIA Hx Anesthesia: Yes Hx Anesthesia Reactions: No Hx Malignant Hyperthermia: No Meds Allergies/Adverse Reactions: Allergies Allergy/AdvReac Type Severity Reaction Status Date / Time No Known Allergies Allergy Verified 05/22/18 19:12 Physical Exam - Constitutional Appears: Non-toxic, No Acute Distress - Head Exam Head Exam: ATRAUMATIC, NORMAL INSPECTION - Eye Exam Eye Exam: EOMI, Normal appearance - ENT Exam ENT Exam: Mucous Membranes Moist - Respiratory Exam Respiratory Exam: Clear to Auscultation Bilateral, NORMAL BREATHING PATTERN. absent: Rhonchi, Wheezes - Cardiovascular Exam Cardiovascular Exam: REGULAR RHYTHM, +S1, +S2 - GI/Abdominal Exam GI & Abdominal Exam: Normal Bowel Sounds, Soft. absent: Diminished Bowel Sounds, Distended, Firm, Guarding, Hernia, Hyperactive Bowel Sounds, Mass, Rebou nd, Rigid - Extremities Exam Extremities exam: Positive for: full ROM - Back Exam Back exam: NORMAL INSPECTION - Neurological Exam Neurological exam: Alert, CN II-XII Intact, Oriented x3 - Psychiatric Exam Psychiatric exam: Normal Affect, Normal Mood - Skin Skin Exam: Normal Color, Warm Results - Vital Signs Recent Vital Signs: Last Vital Signs Temp 98.1 F 05/22/18 21:24 Pulse 60 05/22/18 21:24 Resp 18 05/22/18 21:24 BP 116/70 05/22/18 21:24 Pulse Ox 100 05/22/18 15:57 - Labs Result Diagrams: 05/22/18 16:48 05/22/18 16:48 Labs: Laboratory Results - last 24 hr 05/22/18 05/22/18 05/22/18 16:48 16:48 16:48 WBC 6.5 RBC 2.30 L Hgb 7.0 L Hct 21.7 L MCV 94.3 MCH 30.4 MCHC 32.3 RDW 17.1 H Plt Count 356 MPV 9.0 Gran % 57.1 Lymph % (Auto) 36.0 H [place] % (Auto) 5.5 Eos % (Auto) 1.1 L Baso % (Auto) 0.3 Gran # 3.73 Lymph # (Auto) 2.4 [place] # (Auto) 0.4 Eos # (Auto) 0.1 Baso # (Auto) 0.02 Sodium 137 Potassium 3.5 L Chloride 102 Carbon Dioxide 32 Anion Gap 6 L BUN 2 L Creatinine 0.7 L Est GFR ( Amer) > 60 Est GFR (Non-Af Amer) > 60 Random Glucose 103 Calcium 8.1 L Magnesium 1.8 Total Bilirubin 0.3 AST 43 ALT 37 Alkaline Phosphatase 130 H Total Protein 5.6 L Albumin 2.6 L Globulin 3.0 Albumin/Globulin Ratio 0.9 L Lipase < 10 L Urine Color yellow Urine Appearance Clear Urine pH 6.0 Ur Specific [place] <= 1.005 Urine Protein Negative Urine Glucose (UA) Negative Urine Ketones Negative Urine Blood Negative Urine Nitrate Negative Urine Bilirubin Negative Urine Urobilinogen 0.2 Ur Leukocyte Esterase Negative Urine Opiates Screen Urine Methadone Screen Ur Barbiturates Screen Ur Phencyclidine Scrn Ur Amphetamines Screen U Benzodiazepines Scrn U Oth Cocaine Metabols U Cannabinoids Screen Alcohol, Quantitative Blood Type Antibody Screen Crossmatch BBK History Checked 05/22/18 05/22/18 05/22/18 16:48 16:48 19:12 WBC RBC Hgb Hct MCV MCH MCHC RDW Plt Count MPV Gran % Lymph % (Auto) [place] % (Auto) Eos % (Auto) Baso % (Auto) Gran # Lymph # (Auto) [place] # (Auto) Eos # (Auto) Baso # (Auto) Sodium Potassium Chloride Carbon Dioxide Anion Gap BUN Creatinine Est GFR ( Amer) Est GFR (Non-Af Amer) Random Glucose Calcium Magnesium Total Bilirubin AST ALT Alkaline Phosphatase Total Protein Albumin Globulin Albumin/Globulin Ratio Lipase Urine Color Urine Appearance Urine pH Ur Specific [place] Urine Protein Urine Glucose (UA) Urine Ketones Urine Blood Urine Nitrate Urine Bilirubin Urine Urobilinogen Ur Leukocyte Esterase Urine Opiates Screen Negative Urine Methadone Screen Negative Ur Barbiturates Screen Negative Ur Phencyclidine Scrn Negative Ur Amphetamines Screen Negative U Benzodiazepines Scrn Negative U Oth Cocaine Metabols Negative U Cannabinoids Screen Negative Alcohol, Quantitative < 10 Blood Type O POSITIVE Antibody Screen Negative Crossmatch See Detail BBK History Checked Patient has bt Assessment & Plan - Assessment and Plan (Free Text) Assessment: Patient is a 42 homeless M with a history of alcohol abuse and hypertension who presents with complaints of abdominal pain associated with nausea and vomiting Plan: Anemia r/o GI bleed vs. alcohol abuse hx -Hg 7.0/21.7 -Patient to receive 1 unit PRBC -Gastroenterology on consult -Hematology on consult -Iron and TIBC, ferritin, transferrin, retic count, folate, Vitamin B12 -Banana bag -Protonix, Carafate -Morphine for pain control Hypokalemia -Potassium repleted -Mag ordered GI/DVT prophylaxis: Protonix/SCDs
[2018-05-22 23:57] VITALS: BMI 24.3
[2018-05-23] MEDS: Folic Acid 1 MG, Thiamine 100 MG, Multivitamin (MVI) 10 ML in Dextrose 5% In Water 1,00... IV SCH (03:25)
[2018-05-23] MEDS: Morphine 2 mg/ml ISec IVP PRN ×2 (03:35→15:48)
[2018-05-23 04:21] LABS: TOTAL IRON BINDING CAPACITY 283 ug/dL (261-462)
[2018-05-23] MEDS: Sucralfate 1 gm/10 ml Oral Susp UD PO SCH ×4 (05:31→22:30)
[2018-05-23 06:43] LABS: HEMOGLOBIN 8.6 g/dL (14.0-18.0); MEAN CORPUSCULAR HGB CONC 32.6 g/dl (31.0-37.0); MEAN PLATELET VOLUME 9.4 fl (7.0-11.0); PLATELET COUNT 334 10^3/uL (120.0-450.0); RBC 2.87 10^6/uL (3.5-6.1); RED CELL DISTRIBUTION WIDTH 17.3 % (11.5-14.5); WHITE BLOOD COUNT 5.2 10^3/uL (4.5-11.0)
[2018-05-23 06:50] LABS: % IRON SATURATION 9 % (20-55); IRON 25 ug/dL (45-180)
[2018-05-23 06:59] LABS: ALB/GLOB RATIO 0.8 (1.1-1.8); ALBUMIN 2.4 g/dL (3.0-4.8); ALT/SGPT 33 U/L (7-56); AST/SGOT 40 U/L (17-59); BLOOD UREA NITROGEN 2 mg/dL (7-21); CALCIUM 8.1 mg/dL (8.4-10.5); GFR NON-AFRICAN AMERICAN > 60
--- NOTE | 2018-05-23 07:42 | CP.PCM.PN ---
<Stanford Walsh - Last Filed: 05/23/18 13:54> Subjective - Date & Time of Evaluation Date of Evaluation: 05/23/18 Time of Evaluation: 07:15 - Subjective Subjective: Stanford Walsh DO, PGY-1 Hospitalist Progress Note for Dr. Swanson Patient was seen and examined at bedside this AM. He reports his abdominal pain has improved since admission. He states he has no nausea/vomiting and would like to drink some tea. Objective - Vital Signs/Intake and Output Vital Signs (last 24 hours): Temp Pulse Resp BP Pulse Ox 97.9 F 46 L 18 110/58 L 100 05/23/18 03:41 05/23/18 03:41 05/23/18 03:41 05/23/18 03:41 05/22/18 15:57 Intake and Output: 05/23/18 05/23/18 06:59 18:59 Intake Total 604 Balance 604 - Medications Medications: Current Medications Sodium Chloride (Sodium Chloride 0.9%) 1,000 mls @ 100 mls/hr IV .Q10H [facility] Folic Acid 1 mg/ Thiamine HCl 100 mg/ Multivitamins/Vitamin C 10 ml/ Dextrose 1,011.2 mls @ 100 mls/hr IV .Q10H7M [facility] Last Admin: 05/23/18 03:25 Dose: 100 mls/hr Morphine Sulfate (Morphine) 2 mg IVP Q6H PRN PRN Reason: Shortness of Breath Last Admin: 05/23/18 03:35 Dose: 2 mg Ondansetron HCl (Zofran Inj) 4 mg IVP Q6H PRN PRN Reason: Nausea/Vomiting Pantoprazole Sodium (Protonix Inj) 40 mg IVP Q12 [facility] Sucralfate (Carafate Oral Susp) 1 gm PO 0630,1130,1630,2200 [facility] Last Admin: 05/23/18 05:31 Dose: Not Given - Labs Labs: 05/23/18 06:00 05/23/18 06:00 - Constitutional Appears: Non-toxic, No Acute Distress - Head Exam Head Exam: ATRAUMATIC, NORMOCEPHALIC - Eye Exam Eye Exam: EOMI, PERRL Additional comments: pale conjunctiva - ENT Exam ENT Exam: Mucous Membranes Moist - Neck Exam Neck Exam: Full ROM, Normal Inspection - Respiratory Exam Respiratory Exam: Clear to Ausculation Bilateral, NORMAL BREATHING PATTERN. absent: Accessory Muscle Use, Rales, Rhonchi, Wheezes - Cardiovascular Exam Cardiovascular Exam: REGULAR RHYTHM, RRR, +S1, +S2. absent: Gallop, Rubs, Murmur - GI/Abdominal Exam GI & Abdominal Exam: Soft, Tenderness (mild tenderness to palpation epigastric region), Normal Bowel Sounds. absent: Distended, Guarding, Organomegaly, Rebound - Exam Exam: absent: Scrotal Swelling, Testicular Tenderness Additional comments: L sided inguinal hernia - Extremities Exam Extremities Exam: Full ROM, Normal Inspection - Back Exam Back Exam: NORMAL INSPECTION - Neurological Exam Neurological Exam: Alert, Awake, Oriented x3 - Psychiatric Exam Psychiatric exam: Normal Affect, Normal Mood - Skin Skin Exam: Dry, Intact, Warm Assessment and Plan - Assessment and Plan (Free Text) Assessment: 42 yo M with PMH of HTN and alcohol abuse presented to ED with abdominal pain, nausea/vomiting. He was found to be anemic at 7.0/21.7 on admission and was subsequently admitted and transfused 1 u PRBC. Plan: 1. Normocytic acute blood loss anemia Likely 2/2 GI bleed EGD was done today and found bleeding ulcer Was transfused 1 u PRBC and H/H is now 8.6/26.4 Continue to monitor H/H F/u further GI recs 2. Abdominal pain May be 2/2 ulcer found on EGD vs inguinal hernia Patient stated he first noticed L sided inguinal hernia after EGD today Will get CTAP w/PO contrast to r/o abdominal wall abnormality Continue protonix, carafate, zofran Continue pain control PRN 3. Hypokalemia Repleted on admission, now resolved Continue to monitor electrolytes DVT/GI PPX: SCD, protonix Full Code Advance diet as tolerated per GI recs after CTAP w/PO contrast Monitor on med/surg Case and plan reviewed and discussed with my attending Dr. Sky Walsh, IM Resident PGY-1 Pager: [phone] <Erick Swanson - Last Filed: 05/24/18 14:30> Objective - Vital Signs/Intake and Output Vital Signs (last 24 hours): Temp Pulse Resp BP Pulse Ox 98.1 F 63 18 110/75 100 05/24/18 08:02 05/24/18 08:02 05/24/18 08:02 05/24/18 08:02 05/24/18 08:02 Intake and Output: 05/24/18 05/24/18 06:59 18:59 Intake Total 1740 Output Total 300 Balance 1440 - Medications Medications: Current Medications Folic Acid 1 mg/ Thiamine HCl 100 mg/ Multivitamins/Vitamin C 10 ml/ Dextrose 1,011.2 mls @ 100 mls/hr IV .Q10H7M [facility] Last Admin: 05/24/18 01:27 Dose: 100 mls/hr Morphine Sulfate (Morphine) 2 mg IVP Q8 PRN PRN Reason: Shortness of Breath Last Admin: 05/24/18 11:26 Dose: 2 mg Ondansetron HCl (Zofran Inj) 4 mg IVP Q6H PRN PRN Reason: Nausea/Vomiting Pantoprazole Sodium (Protonix Inj) 40 mg IVP Q12 [facility] Last Admin: 05/24/18 09:22 Dose: 40 mg Sucralfate (Carafate Oral Susp) 1 gm PO 0630,1130,1630,2200 [facility] Last Admin: 05/24/18 06:22 Dose: 1 gm - Labs Labs: 05/24/18 05:15 05/24/18 05:15 Attending/Attestation - Attestation I have personally seen and examined this patient.: Yes I have fully participated in the care of the patient.: Yes I have reviewed all pertinent clinical information, including history, physical exam and plan: Yes Notes (Text): 05/24/18 14:24 Attending note; Patient seen and examined with the resident. Agreed with the resident note with corrections. Patient is a 42-year-old male with a history of chronic alcohol abuse, gastritis, anemia is admitted for abdominal pain. Found to have hemoglobin of 7.0. 1. Anemia; 1 unit PRBC transfusion given. Currently no active bleeding. Hemoglobin is stable at 8.6. 2. GI evaluation requested; patient had recent EGD showed nonbleeding duodenal ulcer. Colonoscopy showed blood in the colon but it was a poor prep. Repeat colonoscopy in 1 month recommended. 3. Chronic alcohol abuse; patient states he stopped alcohol 2 weeks ago. Advised to avoid aspirin, NSAIDs 4. GI prophylaxis with Protonix . Nothing by mouth . s/p post EGD today. Showed clean-based ulcer. Advised to advance diet. Monitor hemoglobin closely. Patient [place] [facility] [place].
--- NOTE | 2018-05-23 09:07 | CP.PCM.CON ---
<Young Al - Last Filed: 05/23/18 09:07> History of Present Illness - History of Present Illness History of Present Illness: PGY-4 GI Fellow Consult Note Pt is a 42 yo BM with h/o EtOH Abuse (14 days sober, recent hospitalization for withdrawal), Duodenal Ulcer (FC IIa per image reviewed, no intervention), gastritis (biopsy neg) presenting with abd pain. He states since about 05/19, he has had intermittent, sharp epigastric abd pain that occasionally radiated to his back and side. Severity up to 02/28. States might be better initially with PO intake, then about 30 min later it would hurt. He reports associated NB/NB emesis that he states has a hard time keeping PO down. Since being recently DCed and diagnosed with the above findings on EGD, he states that he has only been taking tums and pepto bismol as need, no PPI therapy reported. He states bowel movements are somewhat loose, brownish yellow, denying any melena nor hematochezia. Also during his recent stay, he had CSPY on 05/15/18 which revealed poor prep, old blood in colon with recommendations to repeat in 1 month due to poor prep,. 12 point ROS negative other than stated above PMD: none PMH: See above PSH: denies Home meds: Pepto and tums FamH: mother - DM, colon cancer SocH: smokin/2 pack per day for 5 years, alcohol: drinks beer/4-[place] daily but sober x 14 days, drugs: cocaine All: NKDA Past Patient History - Infectious Disease Hx of Infectious Diseases: None - Tetanus Immunizations Tetanus Immunization: Unknown - Past Social History Smoking Status: Current Some Days Smoker - CARDIAC Hx Cardiac Disorders: Yes Hx Hypertension: Yes - PULMONARY Hx Respiratory Disorders: No - NEUROLOGICAL Hx Neurological Disorder: No - HEENT Hx HEENT Problems: No - RENAL Hx Chronic Kidney Disease: No - ENDOCRINE/METABOLIC Hx Endocrine Disorders: No - HEMATOLOGICAL/ONCOLOGICAL Hx Blood Transfusions: No Hx Blood Transfusion Reaction: No - INTEGUMENTARY Hx Dermatological Problems: No - MUSCULOSKELETAL/RHEUMATOLOGICAL Hx Falls: No - GASTROINTESTINAL Hx Gastrointestinal Disorders: Yes Hx Gastroesophageal Reflux: Yes Hx Pancreatitis: Yes - GENITOURINARY/GYNECOLOGICAL Hx Genitourinary Disorders: No Hx Sexually Transmitted Disorders: No - PSYCHIATRIC Hx Psychophysiologic Disorder: Yes (ETOH ABUSE ,SMOKING) Hx Substance Use: No - SURGICAL HISTORY Hx Amputation: No Hx Appendectomy: No Hx Cardiac Catheterization: No Hx Cholecystectomy: No Hx Coronary Stent: No Hx Gastric Bypass Surgery: No Hx Hysterectomy: No Hx Joint Replacement: No Hx Kidney Transplant: No Hx Liver Transplant: No Hx Mastectomy: No Hx Musculoskeletal Surgery: No Hx Open Heart Surgery: No Hx Orthopedic Surgery: No Hx Splenectomy: No Hx Valve Replacement: No - ANESTHESIA Hx Anesthesia: Yes Hx Anesthesia Reactions: No Hx Malignant Hyperthermia: No Meds Allergies/Adverse Reactions: Allergies Allergy/AdvReac Type Severity Reaction Status Date / Time No Known Allergies Allergy Verified 05/22/18 19:12 - Medications Medications: Current Medications Sodium Chloride (Sodium Chloride 0.9%) 1,000 mls @ 100 mls/hr IV .Q10H [facility] Folic Acid 1 mg/ Thiamine HCl 100 mg/ Multivitamins/Vitamin C 10 ml/ Dextrose 1,011.2 mls @ 100 mls/hr IV .Q10H7M [facility] Last Admin: 05/23/18 03:25 Dose: 100 mls/hr Morphine Sulfate (Morphine) 2 mg IVP Q6H PRN PRN Reason: Shortness of Breath Last Admin: 05/23/18 03:35 Dose: 2 mg Ondansetron HCl (Zofran Inj) 4 mg IVP Q6H PRN PRN Reason: Nausea/Vomiting Pantoprazole Sodium (Protonix Inj) 40 mg IVP Q12 [facility] Sucralfate (Carafate Oral Susp) 1 gm PO 0630,1130,1630,2200 [facility] Last Admin: 05/23/18 05:31 Dose: Not Given Physical Exam - Constitutional Appears: Well, No Acute Distress - Head Exam Head Exam: ATRAUMATIC, NORMAL INSPECTION - Eye Exam Eye Exam: EOMI. absent: Conjunctival injection, Scleral icterus - ENT Exam ENT Exam: Mucous Membranes Dry, Normal External Ear Exam. absent: Mucous Membranes Moist - Respiratory Exam Respiratory Exam: Clear to Auscultation Bilateral, NORMAL BREATHING PATTERN. absent: Accessory Muscle Use, Respiratory Distress - Cardiovascular Exam Cardiovascular Exam: REGULAR RHYTHM, RRR - GI/Abdominal Exam GI & Abdominal Exam: Normal Bowel Sounds, Soft, Tenderness. absent: Bruit, Diminished Bowel Sounds, Distended, Firm, Hernia, Mass, Organomegaly, Pulsatile Mass, Rebound, Rigid (epigastric ttp w/o guarding) - Rectal Exam Rectal Exam: NORMAL INSPECTION Additional comments: no stool in rectal vault - Extremities Exam Extremities exam: Positive for: normal inspection. Negative for: pedal edema - Neurological Exam Neurological exam: Alert, CN II-XII Intact, Oriented x3 - Psychiatric Exam Psychiatric exam: Normal Affect, Normal Mood - Skin Skin Exam: Normal Color, Warm Results - Vital Signs Recent Vital Signs: Last Vital Signs Temp 97.9 F 05/23/18 06:00 Pulse 58 L 05/23/18 06:00 Resp 20 05/23/18 06:00 BP 96/57 L 05/23/18 06:00 Pulse Ox 98 05/23/18 06:00 - Labs Result Diagrams: 05/23/18 06:00 05/23/18 06:00 Labs: Laboratory Results - last 24 hr 05/22/18 05/22/18 05/22/18 16:48 16:48 16:48 WBC 6.5 RBC 2.30 L Hgb 7.0 L Hct 21.7 L MCV 94.3 MCH 30.4 MCHC 32.3 RDW 17.1 H Plt Count 356 MPV 9.0 Gran % 57.1 Lymph % (Auto) 36.0 H [place] % (Auto) 5.5 Eos % (Auto) 1.1 L Baso % (Auto) 0.3 Gran # 3.73 Lymph # (Auto) 2.4 [place] # (Auto) 0.4 Eos # (Auto) 0.1 Baso # (Auto) 0.02 Differential Comment Retic Count Sodium 137 Potassium 3.5 L Chloride 102 Carbon Dioxide 32 Anion Gap 6 L BUN 2 L Creatinine 0.7 L Est GFR ( Amer) > 60 Est GFR (Non-Af Amer) > 60 Random Glucose 103 Calcium 8.1 L Magnesium 1.8 Iron TIBC % Saturation Total Bilirubin 0.3 AST 43 ALT 37 Alkaline Phosphatase 130 H Total Protein 5.6 L Albumin 2.6 L Globulin 3.0 Albumin/Globulin Ratio 0.9 L Lipase < 10 L Urine Color yellow Urine Appearance Clear Urine pH 6.0 Ur Specific [place] <= 1.005 Urine Protein Negative Urine Glucose (UA) Negative Urine Ketones Negative Urine Blood Negative Urine Nitrate Negative Urine Bilirubin Negative Urine Urobilinogen 0.2 Ur Leukocyte Esterase Negative Urine Opiates Screen Urine Methadone Screen Ur Barbiturates Screen Ur Phencyclidine Scrn Ur Amphetamines Screen U Benzodiazepines Scrn U Oth Cocaine Metabols U Cannabinoids Screen Alcohol, Quantitative Blood Type Antibody Screen Crossmatch BBK History Checked 05/22/18 05/22/18 05/22/18 16:48 16:48 16:48 WBC RBC Hgb Hct MCV MCH MCHC RDW Plt Count MPV Gran % Lymph % (Auto) [place] % (Auto) Eos % (Auto) Baso % (Auto) Gran # Lymph # (Auto) [place] # (Auto) Eos # (Auto) Baso # (Auto) Differential Comment See pathology report Retic Count Sodium Potassium Chloride Carbon Dioxide Anion Gap BUN Creatinine Est GFR ( Amer) Est GFR (Non-Af Amer) Random Glucose Calcium Magnesium Iron TIBC % Saturation Total Bilirubin AST ALT Alkaline Phosphatase Total Protein Albumin Globulin Albumin/Globulin Ratio Lipase Urine Color Urine Appearance Urine pH Ur Specific [place] Urine Protein Urine Glucose (UA) Urine Ketones Urine Blood Urine Nitrate Urine Bilirubin Urine Urobilinogen Ur Leukocyte Esterase Urine Opiates Screen Negative Urine Methadone Screen Negative Ur Barbiturates Screen Negative Ur Phencyclidine Scrn Negative Ur Amphetamines Screen Negative U Benzodiazepines Scrn Negative U Oth Cocaine Metabols Negative U Cannabinoids Screen Negative Alcohol, Quantitative < 10 Blood Type Antibody Screen Crossmatch BBK History Checked 05/22/18 05/22/18 05/23/18 16:48 19:12 06:00 WBC 5.2 RBC 2.87 L Hgb 8.6 L Hct 26.4 L MCV 92.0 MCH 30.0 MCHC 32.6 RDW 17.3 H Plt Count 334 MPV 9.4 Gran % Lymph % (Auto) [place] % (Auto) Eos % (Auto) Baso % (Auto) Gran # Lymph # (Auto) [place] # (Auto) Eos # (Auto) Baso # (Auto) Differential Comment Retic Count 2.26 H Sodium Potassium Chloride Carbon Dioxide Anion Gap BUN Creatinine Est GFR ( Amer) Est GFR (Non-Af Amer) Random Glucose Calcium Magnesium Iron 25 L TIBC 283 % Saturation 9 L Total Bilirubin AST ALT Alkaline Phosphatase Total Protein Albumin Globulin Albumin/Globulin Ratio Lipase Urine Color Urine Appearance Urine pH Ur Specific [place] Urine Protein Urine Glucose (UA) Urine Ketones Urine Blood Urine Nitrate Urine Bilirubin Urine Urobilinogen Ur Leukocyte Esterase Urine Opiates Screen Urine Methadone Screen Ur Barbiturates Screen Ur Phencyclidine Scrn Ur Amphetamines Screen U Benzodiazepines Scrn U Oth Cocaine Metabols U Cannabinoids Screen Alcohol, Quantitative Blood Type O POSITIVE Antibody Screen Negative Crossmatch See Detail BBK History Checked Patient has bt 05/23/18 06:00 WBC RBC Hgb Hct MCV MCH MCHC RDW Plt Count MPV Gran % Lymph % (Auto) [place] % (Auto) Eos % (Auto) Baso % (Auto) Gran # Lymph # (Auto) [place] # (Auto) Eos # (Auto) Baso # (Auto) Differential Comment Retic Count Sodium 137 Potassium 3.9 Chloride 107 Carbon Dioxide 28 Anion Gap 7 L BUN 2 L Creatinine 0.7 L Est GFR ( Amer) > 60 Est GFR (Non-Af Amer) > 60 Random Glucose 141 H Calcium 8.1 L Magnesium Iron TIBC % Saturation Total Bilirubin 0.8 AST 40 ALT 33 Alkaline Phosphatase 121 Total Protein 5.2 L Albumin 2.4 L Globulin 2.8 Albumin/Globulin Ratio 0.8 L Lipase Urine Color Urine Appearance Urine pH Ur Specific [place] Urine Protein Urine Glucose (UA) Urine Ketones Urine Blood Urine Nitrate Urine Bilirubin Urine Urobilinogen Ur Leukocyte Esterase Urine Opiates Screen Urine Methadone Screen Ur Barbiturates Screen Ur Phencyclidine Scrn Ur Amphetamines Screen U Benzodiazepines Scrn U Oth Cocaine Metabols U Cannabinoids Screen Alcohol, Quantitative Blood Type Antibody Screen Crossmatch BBK History Checked Assessment & Plan - Assessment and Plan (Free Text) Assessment: 42 yo BM with recently diagnosed PUD and gastritis, recent etoh abuse presenting with abd pain, n/v. # Abd Pain, N/V: Symptoms likely related to known PUD, specifically Duodenal Ulcer FC-IIa seen on recent EGD. No intervention done on lesion and patient has not been compliant with PPI therapy. # Acute on Chronic Anemia: Hgb 7 from 8.4 on recent DC. S/p 2 units pRBCs with response to 8.6. Concerning that Hgb decreased from last DC and not completely appropriate response to transfusion. Plan: - PPI IV BID - NPO - Pt consented for EGD this AM - Further recs pending EGD findings - Avoid EtOH and NSAIDs - Will need PPI therapy going forward Pt seen and examined with Dr. Bolaños <Angel Bolaños - Last Filed: 05/23/18 10:09> Meds - Medications Medications: Current Medications Sodium Chloride (Sodium Chloride 0.9%) 1,000 mls @ 100 mls/hr IV .Q10H [facility] Folic Acid 1 mg/ Thiamine HCl 100 mg/ Multivitamins/Vitamin C 10 ml/ Dextrose 1,011.2 mls @ 100 mls/hr IV .Q10H7M [facility] Last Admin: 05/23/18 03:25 Dose: 100 mls/hr Morphine Sulfate (Morphine) 2 mg IVP Q6H PRN PRN Reason: Shortness of Breath Last Admin: 05/23/18 03:35 Dose: 2 mg Ondansetron HCl (Zofran Inj) 4 mg IVP Q6H PRN PRN Reason: Nausea/Vomiting Pantoprazole Sodium (Protonix Inj) 40 mg IVP Q12 [facility] Sucralfate (Carafate Oral Susp) 1 gm PO 0630,1130,1630,2200 [facility] Last Admin: 05/23/18 05:31 Dose: Not Given Results - Vital Signs Recent Vital Signs: Last Vital Signs Temp 97.9 F 05/23/18 06:00 Pulse 58 L 05/23/18 06:00 Resp 20 05/23/18 06:00 BP 96/57 L 05/23/18 06:00 Pulse Ox 98 05/23/18 06:00 - Labs Result Diagrams: 05/23/18 06:00 05/23/18 06:00 Labs: Laboratory Results - last 24 hr 05/22/18 05/22/18 05/22/18 16:48 16:48 16:48 WBC 6.5 RBC 2.30 L Hgb 7.0 L Hct 21.7 L MCV 94.3 MCH 30.4 MCHC 32.3 RDW 17.1 H Plt Count 356 MPV 9.0 Gran % 57.1 Lymph % (Auto) 36.0 H [place] % (Auto) 5.5 Eos % (Auto) 1.1 L Baso % (Auto) 0.3 Gran # 3.73 Lymph # (Auto) 2.4 [place] # (Auto) 0.4 Eos # (Auto) 0.1 Baso # (Auto) 0.02 Differential Comment Retic Count Sodium 137 Potassium 3.5 L Chloride 102 Carbon Dioxide 32 Anion Gap 6 L BUN 2 L Creatinine 0.7 L Est GFR ( Amer) > 60 Est GFR (Non-Af Amer) > 60 Random Glucose 103 Calcium 8.1 L Magnesium 1.8 Iron TIBC % Saturation Total Bilirubin 0.3 AST 43 ALT 37 Alkaline Phosphatase 130 H Total Protein 5.6 L Albumin 2.6 L Globulin 3.0 Albumin/Globulin Ratio 0.9 L Lipase < 10 L Urine Color yellow Urine Appearance Clear Urine pH 6.0 Ur Specific [place] <= 1.005 Urine Protein Negative Urine Glucose (UA) Negative Urine Ketones Negative Urine Blood Negative Urine Nitrate Negative Urine Bilirubin Negative Urine Urobilinogen 0.2 Ur Leukocyte Esterase Negative Urine Opiates Screen Urine Methadone Screen Ur Barbiturates Screen Ur Phencyclidine Scrn Ur Amphetamines Screen U Benzodiazepines Scrn U Oth Cocaine Metabols U Cannabinoids Screen Alcohol, Quantitative Blood Type Antibody Screen Crossmatch BBK History Checked 05/22/18 05/22/18 05/22/18 16:48 16:48 16:48 WBC RBC Hgb Hct MCV MCH MCHC RDW Plt Count MPV Gran % Lymph % (Auto) [place] % (Auto) Eos % (Auto) Baso % (Auto) Gran # Lymph # (Auto) [place] # (Auto) Eos # (Auto) Baso # (Auto) Differential Comment See pathology report Retic Count Sodium Potassium Chloride Carbon Dioxide Anion Gap BUN Creatinine Est GFR ( Amer) Est GFR (Non-Af Amer) Random Glucose Calcium Magnesium Iron TIBC % Saturation Total Bilirubin AST ALT Alkaline Phosphatase Total Protein Albumin Globulin Albumin/Globulin Ratio Lipase Urine Color Urine Appearance Urine pH Ur Specific [place] Urine Protein Urine Glucose (UA) Urine Ketones Urine Blood Urine Nitrate Urine Bilirubin Urine Urobilinogen Ur Leukocyte Esterase Urine Opiates Screen Negative Urine Methadone Screen Negative Ur Barbiturates Screen Negative Ur Phencyclidine Scrn Negative Ur Amphetamines Screen Negative U Benzodiazepines Scrn Negative U Oth Cocaine Metabols Negative U Cannabinoids Screen Negative Alcohol, Quantitative < 10 Blood Type Antibody Screen Crossmatch BBK History Checked 05/22/18 05/22/18 05/23/18 16:48 19:12 06:00 WBC 5.2 RBC 2.87 L Hgb 8.6 L Hct 26.4 L MCV 92.0 MCH 30.0 MCHC 32.6 RDW 17.3 H Plt Count 334 MPV 9.4 Gran % Lymph % (Auto) [place] % (Auto) Eos % (Auto) Baso % (Auto) Gran # Lymph # (Auto) [place] # (Auto) Eos # (Auto) Baso # (Auto) Differential Comment Retic Count 2.26 H Sodium Potassium Chloride Carbon Dioxide Anion Gap BUN Creatinine Est GFR ( Amer) Est GFR (Non-Af Amer) Random Glucose Calcium Magnesium Iron 25 L TIBC 283 % Saturation 9 L Total Bilirubin AST ALT Alkaline Phosphatase Total Protein Albumin Globulin Albumin/Globulin Ratio Lipase Urine Color Urine Appearance Urine pH Ur Specific [place] Urine Protein Urine Glucose (UA) Urine Ketones Urine Blood Urine Nitrate Urine Bilirubin Urine Urobilinogen Ur Leukocyte Esterase Urine Opiates Screen Urine Methadone Screen Ur Barbiturates Screen Ur Phencyclidine Scrn Ur Amphetamines Screen U Benzodiazepines Scrn U Oth Cocaine Metabols U Cannabinoids Screen Alcohol, Quantitative Blood Type O POSITIVE Antibody Screen Negative Crossmatch See Detail BBK History Checked Patient has bt 05/23/18 06:00 WBC RBC Hgb Hct MCV MCH MCHC RDW Plt Count MPV Gran % Lymph % (Auto) [place] % (Auto) Eos % (Auto) Baso % (Auto) Gran # Lymph # (Auto) [place] # (Auto) Eos # (Auto) Baso # (Auto) Differential Comment Retic Count Sodium 137 Potassium 3.9 Chloride 107 Carbon Dioxide 28 Anion Gap 7 L BUN 2 L Creatinine 0.7 L Est GFR ( Amer) > 60 Est GFR (Non-Af Amer) > 60 Random Glucose 141 H Calcium 8.1 L Magnesium Iron TIBC % Saturation Total Bilirubin 0.8 AST 40 ALT 33 Alkaline Phosphatase 121 Total Protein 5.2 L Albumin 2.4 L Globulin 2.8 Albumin/Globulin Ratio 0.8 L Lipase Urine Color Urine Appearance Urine pH Ur Specific [place] Urine Protein Urine Glucose (UA) Urine Ketones Urine Blood Urine Nitrate Urine Bilirubin Urine Urobilinogen Ur Leukocyte Esterase Urine Opiates Screen Urine Methadone Screen Ur Barbiturates Screen Ur Phencyclidine Scrn Ur Amphetamines Screen U Benzodiazepines Scrn U Oth Cocaine Metabols U Cannabinoids Screen Alcohol, Quantitative Blood Type Antibody Screen Crossmatch BBK History Checked Attending/Attestation - Attestation I have personally seen and examined this patient.: Yes I have fully participated in the care of the patient.: Yes I have reviewed all pertinent clinical information: Yes Notes (Text): 05/23/18 10:05 I have seen and examined patient with GI fellow. Agree with above documentation with the following additions. In brief, this is a 42 year old male with history of ETOH abuse, PUD who presents to hospital with complaint of progressive abdominal pain for the past one week. He was recently admitted to hospital and underwent workup including endoscopy which showed a duodenal ulcer with visible vessel, no intervention was performed. He describes sharp epigastric, 7/10 intensity pain radiating to back which is worse after meal consumption assoc iated with a few episodes of non-bloody emesis. He denies fever/chills, weight loss, rectal bleeding, NSAID use. He admits to not being compliant with PPI therapy following hospital discharge. ETOH abuse PUD Anemia, iron deficiency - NPO - Continue with PPI therapy - H/H stable, s/p PRBC transfusion, continue to monitor - Would plan for EGD evaluation given ongoing abdominal pain with progressive anemia with known PUD and patient non-compliance to medical therapy following hospital discharge - Further management pending endoscopic evaluation
[2018-05-23] MEDS ORDERED: Propofol 10 mg/ml Inj (20 ML) ONE (10:43)
[2018-05-23] MEDS ORDERED: Midazolam 2 MG/2 ML VIAL ONE (10:44)
--- NOTE | 2018-05-23 11:10 | CP.PCM.PN ---
Subjective - Date & Time of Evaluation Date of Evaluation: 05/23/18 Time of Evaluation: 11:08 - Subjective Subjective: Patient s/p EGD showing mild gastritis, clean based 8 mm duodenal bulb ulcer. No evidence of active bleeding noted on examination. Objective - Vital Signs/Intake and Output Vital Signs (last 24 hours): Temp Pulse Resp BP Pulse Ox 97.9 F 48 L 16 118/77 98 05/23/18 09:50 05/23/18 09:50 05/23/18 09:50 05/23/18 09:50 05/23/18 09:50 Intake and Output: 05/23/18 05/23/18 06:59 18:59 Intake Total 604 Balance 604 - Medications Medications: Current Medications Sodium Chloride (Sodium Chloride 0.9%) 1,000 mls @ 100 mls/hr IV .Q10H [facility] Folic Acid 1 mg/ Thiamine HCl 100 mg/ Multivitamins/Vitamin C 10 ml/ Dextrose 1,011.2 mls @ 100 mls/hr IV .Q10H7M [facility] Last Admin: 05/23/18 03:25 Dose: 100 mls/hr Morphine Sulfate (Morphine) 2 mg IVP Q6H PRN PRN Reason: Shortness of Breath Last Admin: 05/23/18 03:35 Dose: 2 mg Ondansetron HCl (Zofran Inj) 4 mg IVP Q6H PRN PRN Reason: Nausea/Vomiting Pantoprazole Sodium (Protonix Inj) 40 mg IVP Q12 [facility] Sucralfate (Carafate Oral Susp) 1 gm PO 0630,1130,1630,2200 [facility] Last Admin: 05/23/18 05:31 Dose: Not Given - Labs Labs: 05/23/18 06:00 05/23/18 06:00 Assessment and Plan - Assessment and Plan (Free Text) Assessment: HTN ETOH and substance abuse Anemia Plan: - Advance diet as tolerated - Continue with PPI and carafate therapy - Continue to monitor H/H - Follow up hematology recommendations - ETOH cessation counseling - No further planned GI intervention, will sign off case. Please reconsult as necessary, thank you.
[2018-05-23] MEDS ORDERED: Sodium Chloride 0.9% 1,000 ML IV SCH (11:30)
[2018-05-23] MEDS ORDERED: Barium Sulfate Susp 2.1% w/v, 2.0% w/w 450 mL Bottle PO ONE (12:06)
[2018-05-23 12:14] LABS: FERRITIN 12.8 ng/mL
--- NOTE | 2018-05-23 12:52 | CARD ---
APPROVED REPORT Date of service: 05/22/2018 EKG Measurement Heart [id number] <Conclusion> Sinus bradycardia Minimal voltage criteria for LVH, may be normal variant Borderline ECG
--- NOTE | 2018-05-23 15:38 | CT ---
Date of service: 05/23/2018 PROCEDURE: CT Abdomen and Pelvis without intravenous contrast HISTORY: inguinal hernia ? COMPARISON: 05/11/2018 TECHNIQUE: Without contrast. Contrast dose: Radiation dose: Total exam DLP = 438.75 mGy-cm. This CT exam was performed using one or more of the following dose reduction techniques: Automated exposure control, adjustment of the mA and/or kV according to patient size, and/or use of iterative reconstruction technique. FINDINGS: LOWER THORAX: Unremarkable. LIVER: Severe fatty infiltration of the liver GALLBLADDER AND BILE DUCTS: Unremarkable. PANCREAS: Extensive coarse calcifications throughout the pancreas consistent with chronic pancreatitis SPLEEN: Unremarkable. ADRENALS: Unremarkable. No mass. KIDNEYS AND URETERS: Unremarkable. No hydronephrosis. No solid mass. VASCULATURE: Unremarkable. No aortic aneurysm. No aortic atherosclerotic calcification or mural plaque present. BOWEL: Unremarkable. No obstruction. No gross mural thickening. APPENDIX: Unremarkable. Normal appendix. PERITONEUM: There is a small left inguinal hernia the contains fat and a small amount of fluid. There are no bowel loops within the hernia. The hernia measures 33 x 42 mm. LYMPH NODES: Unremarkable. No enlarged lymph nodes. BLADDER: Unremarkable. REPRODUCTIVE: Unremarkable. BONES: No acute fracture. OTHER FINDINGS: None. IMPRESSION: There is a small left inguinal hernia the contains fat and a small amount of fluid. There are no bowel loops within the hernia. The hernia measures 33 x 42 mm. Severe fatty infiltration of the liver. Severe chronic pancreatitis
--- NOTE | 2018-05-23 18:25 | CP.PCM.CON ---
History of Present Illness - History of Present Illness History of Present Illness: Hematology/Oncology Consultation (Dr. Clarke's Service) CC: Anemia HPI: Mr. Glasgow is a 42 year old male with a past medical history significant for chronic pancreatitis, HTN, non-bleeding duodenal ulcer, gastritis, alcohol abuse and tobacco use disorder who presents with abdominal pain with associated N/V. Hematology/Oncology was consulted for acute on chronic anemia. Patient reports that his abdominal pain started two days [employer]. He describes the pain as an intermittent, sharp epigastric pain that occasionally radiates to his back and sides with a severity of 8/10. He reports that it is initially better with PO intake but that PO intake exacerbates the pain shortly after intake. He also reports several episodes of NBNB vomiting and that he has had a hard time keeping his PO intake down. Patient further denies any weight loss, recent travel, recent illness, fevers, chills, headache, changes in his vision, chest pain, palpitations, wheezing, melena, hematochezia, hematemesis, D/C, changes in urine output, skin changes or any numbness/tingling/weakness of any extremity. PMH: As above PSH: Denies Family History: Mother-DM2 and Colon Cancer Social History: Current tobacco smoker with 2.5 year pack smoking history; ron alcohol abuse (beer and four thaddeus) but reportedly abstinent for 14 days; History of cocaine abuse Allergies: NKDA Home Medications: As per MAR Review of Systems - Review of Systems Review of Systems: As stated in HPI, otherwise negative Past Patient History - Infectious Disease Hx of Infectious Diseases: None - Tetanus Immunizations Tetanus Immunization: Unknown - Past Social History Smoking Status: Current Some Days Smoker - CARDIAC Hx Cardiac Disorders: Yes Hx Hypertension: Yes - PULMONARY Hx Respiratory Disorders: No - NEUROLOGICAL Hx Neurological Disorder: No - HEENT Hx HEENT Problems: No - RENAL Hx Chronic Kidney Disease: No - ENDOCRINE/METABOLIC Hx Endocrine Disorders: No - HEMATOLOGICAL/ONCOLOGICAL Hx Blood Transfusions: No Hx Blood Transfusion Reaction: No - INTEGUMENTARY Hx Dermatological Problems: No - MUSCULOSKELETAL/RHEUMATOLOGICAL Hx Falls: No - GASTROINTESTINAL Hx Gastrointestinal Disorders: Yes Hx Gastroesophageal Reflux: Yes Hx Pancreatitis: Yes - GENITOURINARY/GYNECOLOGICAL Hx Genitourinary Disorders: No Hx Sexually Transmitted Disorders: No - PSYCHIATRIC Hx Psychophysiologic Disorder: Yes (ETOH ABUSE ,SMOKING) Hx Substance Use: No - SURGICAL HISTORY Hx Surgeries: No - ANESTHESIA Hx Anesthesia Reactions: No Hx Malignant Hyperthermia: No Meds Allergies/Adverse Reactions: Allergies Allergy/AdvReac Type Severity Reaction Status Date / Time No Known Allergies Allergy Verified 05/22/18 19:12 - Medications Medications: Current Medications Folic Acid 1 mg/ Thiamine HCl 100 mg/ Multivitamins/Vitamin C 10 ml/ Dextrose 1,011.2 mls @ 100 mls/hr IV .Q10H7M [facility] Last Admin: 05/23/18 03:25 Dose: 100 mls/hr Sodium Chloride (Sodium Chloride 0.9%) 1,000 mls @ 100 mls/hr IV .Q10H [facility] Morphine Sulfate (Morphine) 2 mg IVP Q8 PRN PRN Reason: Shortness of Breath Ondansetron HCl (Zofran Inj) 4 mg IVP Q6H PRN PRN Reason: Nausea/Vomiting Pantoprazole Sodium (Protonix Inj) 40 mg IVP Q12 [facility] Last Admin: 05/23/18 15:48 Dose: Not Given Sucralfate (Carafate Oral Susp) 1 gm PO 0630,1130,1630,2200 [facility] Last Admin: 05/23/18 17:17 Dose: 1 gm Physical Exam - Constitutional Appears: Non-toxic, No Acute Distress - Head Exam Head Exam: ATRAUMATIC, NORMOCEPHALIC - Eye Exam Eye Exam: EOMI, Normal appearance, PERRL - ENT Exam ENT Exam: Mucous Membranes Dry - Neck Exam Neck exam: Positive for: Full Rom. Negative for: Lymphadenopathy, Meningismus, Tenderness, Thyromegaly - Respiratory Exam Respiratory Exam: Clear to Auscultation Bilateral, NORMAL BREATHING PATTERN. absent: Accessory Muscle Use, Rales, Rhonchi, Wheezes, Respiratory Distress - Cardiovascular Exam Cardiovascular Exam: REGULAR RHYTHM, RRR, +S1, +S2 - GI/Abdominal Exam GI & Abdominal Exam: Normal Bowel Sounds, Soft, Tenderness (Mild diffuse TTP). absent: Diminished Bowel Sounds, Distended, Firm, Guarding, Hernia - Extremities Exam Extremities exam: Negative for: calf tenderness - Neurological Exam Neurological exam: Alert, Oriented x3 - Psychiatric Exam Psychiatric exam: Normal Affect, Normal Mood - Skin Skin Exam: Dry, Intact, Warm Results - Vital Signs Recent Vital Signs: Last Vital Signs Temp 97.9 F 05/23/18 17:00 Pulse 54 L 05/23/18 17:00 Resp 20 05/23/18 17:00 BP 107/68 05/23/18 17:00 Pulse Ox 100 05/23/18 17:00 - Labs Result Diagrams: 05/23/18 06:00 05/23/18 06:00 Labs: Laboratory Results - last 24 hr 05/22/18 05/22/18 05/22/18 16:48 16:48 16:48 WBC RBC Hgb Hct MCV MCH MCHC RDW Plt Count MPV Differential Comment See pathology report Retic Count Sodium Potassium Chloride Carbon Dioxide Anion Gap BUN Creatinine Est GFR ( Amer) Est GFR (Non-Af Amer) Random Glucose Calcium Iron 25 L TIBC 283 % Saturation 9 L Ferritin 12.8 Total Bilirubin AST ALT Alkaline Phosphatase Total Protein Albumin Globulin Albumin/Globulin Ratio Vitamin B12 282 Blood Type Antibody Screen Crossmatch BBK History Checked 05/22/18 05/23/18 05/23/18 19:12 06:00 06:00 WBC 5.2 RBC 2.87 L Hgb 8.6 L Hct 26.4 L MCV 92.0 MCH 30.0 MCHC 32.6 RDW 17.3 H Plt Count 334 MPV 9.4 Differential Comment Retic Count 2.26 H Sodium 137 Potassium 3.9 Chloride 107 Carbon Dioxide 28 Anion Gap 7 L BUN 2 L Creatinine 0.7 L Est GFR ( Amer) > 60 Est GFR (Non-Af Amer) > 60 Random Glucose 141 H Calcium 8.1 L Iron TIBC % Saturation Ferritin Total Bilirubin 0.8 AST 40 ALT 33 Alkaline Phosphatase 121 Total Protein 5.2 L Albumin 2.4 L Globulin 2.8 Albumin/Globulin Ratio 0.8 L Vitamin B12 Blood Type O POSITIVE Antibody Screen Negative Crossmatch See Detail BBK History Checked Patient has bt Assessment & Plan - Assessment and Plan (Free Text) Assessment: 42 year old male with a past medical history significant for chronic pancreati tis, HTN, non-bleeding duodenal ulcer, gastritis, alcohol abuse and tobacco use disorder who presents with abdominal pain with associated N/V. Hematology/Oncology was consulted for acute on chronic anemia. Plan: -H/H at 7.0/21.7; H/H on 05/15 was 8.4/25.0 -H/H at 8.6/26.4 s/p two units of pRBC's -Normocytic anemia with MCV at 92.0 -Absolute reticulocyte count: 1.4; Indicative of hypoproliferation and inadequate bone marrow response -Recent Folate and Vitamin B12 within normal limits -Iron low at 25 (Recently 171 on 05/09/2018) -Peripheral smear showing normocytic normochomic RBC's with no blasts identified -EGD showed one non-bleeding duodenal ulcer and no obvious sources of upper GI hemorrhage -Recent Colonoscopy was incomplete d/t poor bowel prep but noted OLD BLOOD THROUGHOUT ENTIRE COLON -Continue folate supplementation, PPI, and IV hydration -Continue to monitor with daily CBC's -Further recommendations as per Dr. Clarke Patient seen and case discussed with attending, Dr. Clarke. Giovanny Brandt PGY2 - Date & Time Date: 05/23/18 Time: 18:25
[2018-05-24 00:26] VITALS: RESP 18
[2018-05-24] MEDS: Folic Acid 1 MG, Thiamine 100 MG, Multivitamin (MVI) 10 ML in Dextrose 5% In Water 1,00... IV SCH (01:27)
[2018-05-24] MEDS: Morphine 2 mg/ml ISec IVP PRN ×2 (01:30→11:26)
[2018-05-24] MEDS: Sucralfate 1 gm/10 ml Oral Susp UD PO SCH (06:22)
[2018-05-24 07:06] LABS: CALCIUM 8.3 mg/dL (8.4-10.5)
[2018-05-24 07:19] LABS: ALB/GLOB RATIO 0.9 (1.1-1.8); ALBUMIN 2.3 g/dL (3.0-4.8); ALT/SGPT 32 U/L (7-56); AST/SGOT 52 U/L (17-59); BLOOD UREA NITROGEN 4 mg/dL (7-21); GFR NON-AFRICAN AMERICAN > 60; HEMOGLOBIN 8.3 g/dL (14.0-18.0); MEAN CELL VOLUME 93.9 fl (80.0-105.0); MEAN CORPUSCULAR HGB CONC 31.9 g/dl (31.0-37.0); MEAN PLATELET VOLUME 9.2 fl (7.0-11.0); RBC 2.77 10^6/uL (3.5-6.1); RED CELL DISTRIBUTION WIDTH 17.1 % (11.5-14.5)
[2018-05-24 08:03] VITALS: BP 110/75; PULSE 63; TEMP 98.1; O2SAT 100
--- NOTE | 2018-05-24 11:53 | CP.PCM.DIS ---
<Dheeraj Henriquez - Last Filed: 05/24/18 11:48> Provider - Provider Date of Admission: 05/22/18 18:19 Attending physician: Erick Swanson MD Time Spent in preparation of Discharge (in minutes): 45 Diagnosis - Discharge Diagnosis (1) Abdominal pain Status: Acute (2) Duodenal ulcer Status: Acute Hospital Course - Lab Results Lab Results: Micro Results 05/22/18 16:48 Urine Urine Culture - Final No Growth (<1,000 CFU/ML) Most Recent Lab Values WBC 7.0 10^3/uL (4.5-11.0) D 05/24/18 05:15 RBC 2.77 10^6/uL (3.5-6.1) L 05/24/18 05:15 Hgb 8.3 g/dL (14.0-18.0) L 05/24/18 05:15 Hct 26.0 % (42.0-52.0) L 05/24/18 05:15 MCV 93.9 fl (80.0-105.0) 05/24/18 05:15 MCH 30.0 pg (25.0-35.0) 05/24/18 05:15 MCHC 31.9 g/dl (31.0-37.0) 05/24/18 05:15 RDW 17.1 % (11.5-14.5) H 05/24/18 05:15 Plt Count 321 10^3/uL (120.0-450.0) 05/24/18 05:15 MPV 9.2 fl (7.0-11.0) 05/24/18 05:15 Gran % 57.1 % (50.0-68.0) 05/22/18 16:48 Lymph % (Auto) 36.0 % (22.0-35.0) H 05/22/18 16:48 [place] % (Auto) 5.5 % (1.0-6.0) 05/22/18 16:48 Eos % (Auto) 1.1 % (1.5-5.0) L 05/22/18 16:48 Baso % (Auto) 0.3 % (0.0-3.0) 05/22/18 16:48 Gran # 3.73 (1.4-6.5) 05/22/18 16:48 Lymph # (Auto) 2.4 (1.2-3.4) 05/22/18 16:48 [place] # (Auto) 0.4 (0.1-0.6) 05/22/18 16:48 Eos # (Auto) 0.1 (0.0-0.7) 05/22/18 16:48 Baso # (Auto) 0.02 K/mm3 (0.0-2.0) 05/22/18 16:48 Differential Comment See pathology report 05/22/18 16:48 Retic Count 2.26 % (0.5-1.5) H 05/23/18 06:00 Sodium 136 mmol/L (132-148) 05/24/18 05:15 Potassium 4.0 mmol/L (3.6-5.0) 05/24/18 05:15 Chloride 104 mmol/L (98-107) 05/24/18 05:15 Carbon Dioxide 32 mmol/L (21-33) 05/24/18 05:15 Anion Gap 4 (10-20) L 05/24/18 05:15 BUN 4 mg/dL (7-21) L 05/24/18 05:15 Creatinine 0.8 mg/dl (0.8-1.5) 05/24/18 05:15 Est GFR ( Amer) > 60 05/24/18 05:15 Est GFR (Non-Af Amer) > 60 05/24/18 05:15 Random Glucose 91 mg/dL (70-110) 05/24/18 05:15 Calcium 8.3 mg/dL (8.4-10.5) L 05/24/18 05:15 Phosphorus 3.8 mg/dL (2.5-4.5) 05/24/18 05:15 Magnesium 1.9 mg/dL (1.7-2.2) 05/24/18 05:15 Iron 25 ug/dL (45-180) L 05/22/18 16:48 TIBC 283 ug/dL (261-462) 05/22/18 16:48 % Saturation 9 % (20-55) L 05/22/18 16:48 Ferritin 12.8 ng/mL 05/22/18 16:48 Total Bilirubin 0.5 mg/dL (0.2-1.3) 05/24/18 05:15 AST 52 U/L (17-59) 05/24/18 05:15 ALT 32 U/L (7-56) 05/24/18 05:15 Alkaline Phosphatase 111 U/L (38-126) 05/24/18 05:15 Total Protein 5.1 g/dL (5.8-8.3) L 05/24/18 05:15 Albumin 2.3 g/dL (3.0-4.8) L 05/24/18 05:15 Globulin 2.7 gm/dL 05/24/18 05:15 Albumin/Globulin Ratio 0.9 (1.1-1.8) L 05/24/18 05:15 Lipase < 10 U/L (23-300) L 05/22/18 16:48 Vitamin B12 282 pg/mL (239-931) 05/22/18 16:48 Urine Color yellow (YELLOW) 05/22/18 16:48 Urine Appearance Clear (CLEAR) 05/22/18 16:48 Urine pH 6.0 (4.7-8.0) 05/22/18 16:48 Ur Specific Marvin <= 1.005 (1.005-1.035) 05/22/18 16:48 Urine Protein Negative mg/dL (<30 mg/dL) 05/22/18 16:48 Urine Glucose (UA) Negative mg/dL (NEGATIVE) 05/22/18 16:48 Urine Ketones Negative mg/dL (NEGATIVE) 05/22/18 16:48 Urine Blood Negative (NEGATIVE) 05/22/18 16:48 Urine Nitrate Negative (NEGATIVE) 05/22/18 16:48 Urine Bilirubin Negative (NEGATIVE) 05/22/18 16:48 Urine Urobilinogen 0.2 E.U./dL (<1 E.U./dL) 05/22/18 16:48 Ur Leukocyte Esterase Negative Eliana/uL (NEGATIVE) 05/22/18 16:48 Urine Opiates Screen Negative (NEGATIVE) 05/22/18 16:48 Urine Methadone Screen Negative (NEGATIVE) 05/22/18 16:48 Ur Barbiturates Screen Negative (NEGATIVE) 05/22/18 16:48 Ur Phencyclidine Scrn Negative (NEGATIVE) 05/22/18 16:48 Ur Amphetamines Screen Negative (NEGATIVE) 05/22/18 16:48 U Benzodiazepines Scrn Negative (NEGATIVE) 05/22/18 16:48 U Oth Cocaine Metabols Negative (NEGATIVE) 05/22/18 16:48 U Cannabinoids Screen Negative (NEGATIVE) 05/22/18 16:48 Alcohol, Quantitative < 10 mg/dL (0-10) 05/22/18 16:48 Blood Type O POSITIVE 05/22/18 19:12 Antibody Screen Negative 05/22/18 19:12 Crossmatch See Detail 05/22/18 19:12 BBK History Checked Patient has bt 05/22/18 19:12 - Hospital Course Hospital Course: Upon admission: Patient is a 42 homeless M with a history of alcohol abuse and hypertension who presents with complaints of abdominal pain associated with nausea and vomiting. Patient states the abdominal pain began on Saturday however did not feel inclined to return to the hospital being it that he was just recently discharged for the same symptoms. Described abdominal pain as sharp rating it a 9/10 beginning the umbilicus and extending bilaterally around his lower back. Patient states the pain is at times exacerbated by certain movements and relieved slightly when he rubs his stomach. On last admission patient was found to have gastritis negative for h pylori as well as a non-bleeding duodenal ulcer. Patient was then recommended to continue on protonix and carafate until next GI appointment in 4 weeks. Hospital Course: At the hospital GI was consulted as was Heme/onc due to low hgb. Pt was given 2 units PRBCs in the ED and the pt responded appropriately. He was placed NPO due to GIs recommendation for endoscopy. Endoscopy showed gastritis and One non- bleeding duodenal ulcer base (Pk Class III) and GI recommended the pt be placed on carafate and protonix and continue with GI follow up outpatient. Abd/pelvic CT was also ordered which showed a small L inguinal hernia with no bowel loops. Severe fatty infiltration of the liver and severe chronic pancreatitis. Pt reports that he has had no further episodes of nausea or vomiting since scope procedure and stated that he was hungry, ate and was able to keep it down. Pt was encourage to cut out his drinking and to continue protonix and carafate upon discharge. Plan of d/c was discussed with pt and he was in agreement with the plan. All questions and relevant instructions were reinforced with the pt prior to d/c and the pt expressed understanding of the plan and agreement of plan for d/c. Upon D/c: Pt was explicitly directed to follow up with the following recommendations: Take Protonix and Carafate daily for your duodenal ulcer. Stop using alcohol, drugs. Take Multivitamin, folate and thiamine as directed. Follow up with cytopathologist outpatient in 1-2 weeks. Follow up with [facility] clinic outpatient in 1 week. Your information has been given to the clinic. They will call you back for an appointment. Return to the ER for any concerns. Pt understood and is in agreement with the plan. Discharge Exam - Head Exam Head Exam: ATRAUMATIC, NORMAL INSPECTION, NORMOCEPHALIC - Eye Exam Eye Exam: EOMI, Normal appearance, PERRL - Respiratory Exam Respiratory Exam: NORMAL BREATHING PATTERN, UNREMARKABLE. absent: Accessory Muscle Use, Decreased Breath Sounds, Rales, Rhonchi, Wheezes, Respiratory Distress, Stridor - Cardiovascular Exam Cardiovascular Exam: RRR, +S1, +S2. absent: Gallop, Rubs - GI/Abdominal Exam GI & Abdominal Exam: Hernia (L lower inguinal area, is not causing any pain and is reducible.), Normal Bowel Sounds, Soft, Unremarkable. absent: Rigid, Tenderness - Extremities Exam Extremities exam: normal capillary refill, normal inspection, pedal pulses present - Back Exam Back exam: NORMAL INSPECTION. absent: CVA tenderness (L), CVA tenderness (R) - Neurological Exam Neurological exam: Alert, Normal Gait, Oriented x3 - Psychiatric Exam Psychiatric exam: Normal Affect, Normal Mood - Skin Skin Exam: Dry, Intact, Normal Color, Warm Discharge Plan - Discharge Medications Prescriptions: Folic Acid 1 mg PO DAILY 30 Days #30 tab Multimineral/Multivitamin [Therapeutic-M Tab] 1 tab PO 0800 30 Days #30 tab Nicotine 14 mg/24 hr [Nicoderm CQ] 1 patch TD DAILY 14 Days #14 patch Pantoprazole [Protonix] 40 mg PO DAILY 30 Days #30 ect Sucralfate [Carafate Oral Susp] 1 gm PO 0630,1130,1630,2200 30 Days #112 udc Thiamine [Vitamin B1 Tab] 100 mg PO DAILY 30 Days #30 tab - Follow Up Plan Condition: FAIR Disposition: HOME/ ROUTINE Instructions: Acute Abdomen (Belly Pain), Adult (DC), Alcohol Abuse and Alcoholism (DC), Duodenal Ulcer (DC) Additional Instructions: Take Protonix and Carafate daily for your duodenal ulcer. Stop using alcohol, drugs. Take Multivitamin, folate and thiamine. Follow up with cytopathologist outpatient in 1-2 weeks. Follow up with [facility] [place] [facility] clinic outpatient in 1 week. Your information has been given to the clinic. They will call you back for an appointment. Return to the ER for any concerns. Referrals: Juli Cr MD [Medical Doctor] - <Erick Swanson - Last Filed: 05/24/18 14:32> Provider - Provider Date of Admission: 05/22/18 18:19 Attending physician: Erick Swanson MD Hospital Course - Lab Results Lab Results: Micro Results 05/22/18 16:48 Urine Urine Culture - Final No Growth (<1,000 CFU/ML) Most Recent Lab Values WBC 7.0 10^3/uL (4.5-11.0) D 05/24/18 05:15 RBC 2.77 10^6/uL (3.5-6.1) L 05/24/18 05:15 Hgb 8.3 g/dL (14.0-18.0) L 05/24/18 05:15 Hct 26.0 % (42.0-52.0) L 05/24/18 05:15 MCV 93.9 fl (80.0-105.0) 05/24/18 05:15 MCH 30.0 pg (25.0-35.0) 05/24/18 05:15 MCHC 31.9 g/dl (31.0-37.0) 05/24/18 05:15 RDW 17.1 % (11.5-14.5) H 05/24/18 05:15 Plt Count 321 10^3/uL (120.0-450.0) 05/24/18 05:15 MPV 9.2 fl (7.0-11.0) 05/24/18 05:15 Gran % 57.1 % (50.0-68.0) 05/22/18 16:48 Lymph % (Auto) 36.0 % (22.0-35.0) H 05/22/18 16:48 [place] % (Auto) 5.5 % (1.0-6.0) 05/22/18 16:48 Eos % (Auto) 1.1 % (1.5-5.0) L 05/22/18 16:48 Baso % (Auto) 0.3 % (0.0-3.0) 05/22/18 16:48 Gran # 3.73 (1.4-6.5) 05/22/18 16:48 Lymph # (Auto) 2.4 (1.2-3.4) 05/22/18 16:48 [place] # (Auto) 0.4 (0.1-0.6) 05/22/18 16:48 Eos # (Auto) 0.1 (0.0-0.7) 05/22/18 16:48 Baso # (Auto) 0.02 K/mm3 (0.0-2.0) 05/22/18 16:48 Differential Comment See pathology report 05/22/18 16:48 Retic Count 2.26 % (0.5-1.5) H 05/23/18 06:00 Sodium 136 mmol/L (132-148) 05/24/18 05:15 Potassium 4.0 mmol/L (3.6-5.0) 05/24/18 05:15 Chloride 104 mmol/L (98-107) 05/24/18 05:15 Carbon Dioxide 32 mmol/L (21-33) 05/24/18 05:15 Anion Gap 4 (10-20) L 05/24/18 05:15 BUN 4 mg/dL (7-21) L 05/24/18 05:15 Creatinine 0.8 mg/dl (0.8-1.5) 05/24/18 05:15 Est GFR ( Amer) > 60 05/24/18 05:15 Est GFR (Non-Af Amer) > 60 05/24/18 05:15 Random Glucose 91 mg/dL (70-110) 05/24/18 05:15 Calcium 8.3 mg/dL (8.4-10.5) L 05/24/18 05:15 Phosphorus 3.8 mg/dL (2.5-4.5) 05/24/18 05:15 Magnesium 1.9 mg/dL (1.7-2.2) 05/24/18 05:15 Iron 25 ug/dL (45-180) L 05/22/18 16:48 TIBC 283 ug/dL (261-462) 05/22/18 16:48 % Saturation 9 % (20-55) L 05/22/18 16:48 Ferritin 12.8 ng/mL 05/22/18 16:48 Total Bilirubin 0.5 mg/dL (0.2-1.3) 05/24/18 05:15 AST 52 U/L (17-59) 05/24/18 05:15 ALT 32 U/L (7-56) 05/24/18 05:15 Alkaline Phosphatase 111 U/L (38-126) 05/24/18 05:15 Total Protein 5.1 g/dL (5.8-8.3) L 05/24/18 05:15 Albumin 2.3 g/dL (3.0-4.8) L 05/24/18 05:15 Globulin 2.7 gm/dL 05/24/18 05:15 Albumin/Globulin Ratio 0.9 (1.1-1.8) L 05/24/18 05:15 Lipase < 10 U/L (23-300) L 05/22/18 16:48 Vitamin B12 282 pg/mL (239-931) 05/22/18 16:48 Urine Color yellow (YELLOW) 05/22/18 16:48 Urine Appearance Clear (CLEAR) 05/22/18 16:48 Urine pH 6.0 (4.7-8.0) 05/22/18 16:48 Ur Specific Marvin <= 1.005 (1.005-1.035) 05/22/18 16:48 Urine Protein Negative mg/dL (<30 mg/dL) 05/22/18 16:48 Urine Glucose (UA) Negative mg/dL (NEGATIVE) 05/22/18 16:48 Urine Ketones Negative mg/dL (NEGATIVE) 05/22/18 16:48 Urine Blood Negative (NEGATIVE) 05/22/18 16:48 Urine Nitrate Negative (NEGATIVE) 05/22/18 16:48 Urine Bilirubin Negative (NEGATIVE) 05/22/18 16:48 Urine Urobilinogen 0.2 E.U./dL (<1 E.U./dL) 05/22/18 16:48 Ur Leukocyte Esterase Negative Eliana/uL (NEGATIVE) 05/22/18 16:48 Urine Opiates Screen Negative (NEGATIVE) 05/22/18 16:48 Urine Methadone Screen Negative (NEGATIVE) 05/22/18 16:48 Ur Barbiturates Screen Negative (NEGATIVE) 05/22/18 16:48 Ur Phencyclidine Scrn Negative (NEGATIVE) 05/22/18 16:48 Ur Amphetamines Screen Negative (NEGATIVE) 05/22/18 16:48 U Benzodiazepines Scrn Negative (NEGATIVE) 05/22/18 16:48 U Oth Cocaine Metabols Negative (NEGATIVE) 05/22/18 16:48 U Cannabinoids Screen Negative (NEGATIVE) 05/22/18 16:48 Alcohol, Quantitative < 10 mg/dL (0-10) 05/22/18 16:48 Blood Type O POSITIVE 05/22/18 19:12 Antibody Screen Negative 05/22/18 19:12 Crossmatch See Detail 05/22/18 19:12 BBK History Checked Patient has bt 05/22/18 19:12 Attending/Attestation - Attestation I have personally seen and examined this patient.: Yes I have fully participated in the care of the patient.: Yes I have reviewed all pertinent clinical information, including history, physical exam and plan: Yes Notes (Text): 05/24/18 14:30 Attending note; Patient seen and examined with the resident. Patient is a 42-year-old male with a history of chronic alcohol abuse, gastritis, anemia is admitted for abdominal pain. Found to have hemoglobin of 7.0. 1. Anemia; 1 unit PRBC transfusion given. Currently no active bleeding. Hemoglobin is stable at 8.3. Tolerating diet. 2. GI evaluation appreciated. Showed clean-based ulcer. Repeat colonoscopy in 1 month recommended. 3. Chronic alcohol abuse; patient states he stopped alcohol 2 weeks ago. Advised to avoid aspirin, NSAIDs. 4. GI prophylaxis with Protonix and Protonix. Patient will be discharged home today. Discharge instructions given. Patient will be referred to [facility] clinic upon discharge. 05/24/18 14:31
== END 2018-05-24 14:54 | disposition home or self-care (01) | DRG 384 ==
LOC: ED 14:34 → ERH 18:19 → 3RSO 22:29
PROVIDERS: ADMIT Internal Medicine; ATTEND Internal Medicine
PROC: 30233N1 Transfusion of Nonautologous Red Blood Cells into Peripheral Vein, Percutaneous Approach (ICD-10-PCS; 2018-05-22)
PROC: 0DJ08ZZ Inspection of Upper Intestinal Tract, Via Natural or Artificial Opening Endoscopic (ICD-10-PCS; principal; 2018-05-23 10:45)
DX: K26.9 Duodenal ulcer, unspecified as acute or chronic, without hemorrhage or perforation (principal); K86.1 Other chronic pancreatitis; D50.9 Iron deficiency anemia, unspecified; K29.70 Gastritis, unspecified, without bleeding; K21.9 Gastro-esophageal reflux disease without esophagitis; I10 Essential (primary) hypertension; F10.10 Alcohol abuse, uncomplicated; E87.6 Hypokalemia; F17.210 Nicotine dependence, cigarettes, uncomplicated; K76.0 Fatty (change of) liver, not elsewhere classified; F14.11 Cocaine abuse, in remission; Y90.0 Blood alcohol level of less than 20 mg/100 ml; Z59.0 Homelessness; Z91.19 Patient's noncompliance with other medical treatment and regimen

== ENCOUNTER 2018-07-31 | Emergency (ER) | payer OTHER ==
[2018-07-31] VITALS: BMI 24.3
[2018-07-31 00:49] VITALS: TEMP 98.3
--- NOTE | 2018-07-31 01:11 | ED PDOC ---
Arrival/HPI - General Chief Complaint: Abdominal Pain Time Seen by Provider: 07/31/18 00:17 Historian: Patient - History of Present Illness Narrative History of Present Illness (Text): 07/31/18 01:09 Felix Glasgow is a 43 year old male, whose past medical history includes alcohol abuse, chronic gastritis, and homelessness, complaining of an upset abdominal discomfort. Patient states he has chronic abdominal discomfort and admits to drinking alcohol tonight. Patient denies any fever, abdominal pain, nausea, vomiting, diarrhea, chest pain, shortness of breath, drug use, or any other complaints. Symptom Onset: Gradual Symptom Course: Unchanged Activities at Onset: Light Context: Home Past Medical History - Provider Review Nursing Documentation Reviewed: Yes - Past History Past History: No Previous - Infectious Disease Hx of Infectious Diseases: None - Tetanus Immunization Tetanus Immunization: Unknown - Past Medical History Past Medical History: No Previous - Cardiac Hx Cardiac Disorders: Yes Hx Hypertension: Yes - Pulmonary Hx Respiratory Disorders: No - Neurological Hx Neurological Disorder: No - HEENT Hx HEENT Disorder: No - Renal Hx Renal Disorder: No - Endocrine/Metabolic Hx Endocrine Disorders: No - Hematological/Oncological Hx Blood Transfusions: No Hx Blood Transfusion Reaction: No - Integumentary Hx Dermatological Disorder: No - Musculoskeletal/Rheumatological Hx Falls: No - Gastrointestinal Hx Gastrointestinal Disorders: Yes Hx Gastroesophageal Reflux: Yes Hx Pancreatitis: Yes - Genitourinary/Gynecological Hx Genitourinary Disorders: No Hx Sexually Transmitted Diseases: No - Psychiatric Hx Psychophysiologic Disorder: Yes (ETOH ABUSE ,SMOKING) Hx Substance Use: No - Past Surgical History Past Surgical History: No Previous - Surgical History Hx Amputation: No Hx Appendectomy: No Hx Cardiac Catheterization: No Hx Cholecystectomy: No Hx Coronary Stent: No Hx Gastric Bypass Surgery: No Hx Hysterectomy: No Hx Joint Replacement: No Hx Kidney Transplant: No Hx Liver Transplant: No Hx Mastectomy: No Hx Musculoskeletal Surgery: No Hx Open Heart Surgery: No Hx Orthopedic Surgery: No Hx Splenectomy: No Hx Valve Replacement: No - Anesthesia Hx Anesthesia Reactions: No Hx Malignant Hyperthermia: No - Suicidal Assessment Feels Threatened In Home Enviroment: No Family/Social History - Physician Review Nursing Documentation Reviewed: Yes Family/Social History: Unknown Family HX Smoking Status: Current Some Days Smoker Hx Alcohol Use: Yes Amount per day: 24 Hx Substance Use: No Substance used: heroin Allergies/Home Meds Allergies/Adverse Reactions: Allergies No Known Allergies Allergy (Verified 07/31/18 00:49) Review of Systems - Physician Review All systems were reviewed & negative as marked: Yes - Review of Systems Constitutional: Normal. absent: Fevers Eyes: Normal ENT: Normal Respiratory: Normal. absent: SOB, Cough Cardiovascular: Normal. absent: Chest Pain Gastrointestinal: Abdominal Pain, Vomiting Genitourinary Male: Normal. absent: Dysuria, Frequency, Hematuria, Urinary Output Changes Musculoskeletal: Normal. absent: Back Pain, Neck Pain Skin: Normal. absent: Rash Neurological: Normal. absent: Headache, Dizziness Endocrine: Normal Hemo/Lymphatic: Normal Psychiatric: Normal Physical Exam Vital Signs Reviewed: Yes Vital Signs Temp Pulse Resp BP Pulse Ox 07/31/18 00:48 98.3 F 82 18 133/83 96 Temperature: Afebrile Blood Pressure: Normal Pulse: Regular Respiratory Rate: Normal Appearance: Positive for: Well-Appearing, Non-Toxic, Comfortable Pain Distress: None Mental Status: Positive for: Alert and Oriented X 3 - Systems Exam Head: Present: Atraumatic, Normocephalic Pupils: Present: PERRL Extroacular Muscles: Present: EOMI Conjunctiva: Present: Normal Mouth: Present: Moist Mucous Membranes Neck: Present: Normal Range of Motion Respiratory/Chest: Present: Clear to Auscultation, Good Air Exchange. No: Respiratory Distress, Accessory Muscle Use Cardiovascular: Present: Regular Rate and Rhythm, Normal S1, S2. No: Murmurs Abdomen: No: Tenderness, Distention, Peritoneal Signs Back: Present: Normal Inspection Upper Extremity: Present: Normal Inspection. No: Cyanosis, Edema Lower Extremity: Present: Normal Inspection. No: Edema Neurological: Present: GCS=15, CN II-XII Intact, Speech Normal Skin: Present: Warm, Dry, Normal Color. No: Rashes Psychiatric: Present: Alert, Oriented x 3, Normal Insight, Normal Concentration Medical Decision Making ED Course and Treatment: 07/31/18 01:09 Impression: 43 year old male complaining of upper abdominal discomfort. Plan: -- Labs, lipase -- IV fluids -- Zofran -- Pepcid -- Reassess and disposition Prior Visits: Notes and results from previous visits were reviewed. Progress Notes: - Scribe Statement The provider has reviewed the documentation as recorded by the Becca Zhou Provider Scribe Attestation: All medical record entries made by the Scribe were at my direction and pers onally dictated by me. I have reviewed the chart and agree that the record accurately reflects my personal performance of the history, physical exam, medical decision making, and the department course for this patient. I have also personally directed, reviewed, and agree with the discharge instructions and disposition. Disposition/Present on Arrival - Present on Arrival Any Indicators Present on Arrival: No History of DVT/PE: No History of Uncontrolled Diabetes: No Urinary Catheter: No History of Decub. Ulcer: No History Surgical Site Infection Following: None - Disposition Have Diagnosis and Disposition been Completed?: Yes Diagnosis: Gastritis Disposition: HOME/ ROUTINE Disposition Time: 06:00 Patient Plan: Discharge Patient Problems: Current Active Problems Problem Status Onset Gastritis Acute Condition: GOOD Discharge Instructions (ExitCare): Gastritis (DC) Additional Instructions: Avoid alcohol use/Pepcid as directed/follow up in medical clinic Referrals: [facility] [Outside] - Follow up with primary Juli Cr MD [Medical Doctor] - Follow up with primary Forms: [employer] ([place])
[2018-07-31] MEDS ORDERED: Sodium Chloride 0.9% 1,000 ML IV STA (01:19)
[2018-07-31 01:34] LABS: HEMOGLOBIN 8.8 g/dL (14.0-18.0); MEAN CORPUSCULAR HEMOGLOBIN 26.5 pg (25.0-35.0); MEAN CORPUSCULAR HGB CONC 30.9 g/dl (31.0-37.0); MEAN PLATELET VOLUME 9.2 fl (7.0-11.0); RBC 3.32 10^6/uL (3.5-6.1); RED CELL DISTRIBUTION WIDTH 16.8 % (11.5-14.5); WHITE BLOOD COUNT 5.5 10^3/uL (4.5-11.0)
[2018-07-31 01:44] LABS: ALBUMIN 3.7 g/dL (3.0-4.8); ALT/SGPT 38 U/L (7-56); AST/SGOT 54 U/L (17-59); BLOOD UREA NITROGEN 6 mg/dL (7-21); CALCIUM 8.2 mg/dL (8.4-10.5); GFR NON-AFRICAN AMERICAN > 60
[2018-07-31 01:46] LABS: LIPASE < 10 U/L (23-300)
[2018-07-31 01:47] LABS: MEAN CELL VOLUME 85.8 fl (80.0-105.0)
[2018-07-31 06:18] VITALS: BP 132/85; PULSE 88; RESP 18; O2SAT 97
== END 2018-07-31 06:16 | disposition home or self-care (01) ==
LOC: ED
DX: K29.70 Gastritis, unspecified, without bleeding (principal); I10 Essential (primary) hypertension; Z59.0 Homelessness
CPT/HCPCS: 80053; 83690; 85027; 96361; 96374; 96375; 99284; J2405; J7030

== ENCOUNTER 2018-08-21 21:50 | Emergency (ER) | payer OTHER ==
[2018-08-21 21:50] VITALS: BMI 24.3
--- NOTE | 2018-08-21 22:16 | ED PDOC ---
Arrival/HPI - General Chief Complaint: Alcohol Ingestion Time Seen by Provider: 08/21/18 21:51 Historian: Patient - History of Present Illness Narrative History of Present Illness (Text): 08/21/18 22:13 43 year old male, whose past medical history includes alcohol abuse, chronic gastritis, and homelessness, presents to the emergency department in need of a place to sleep. Patient admits to drinking alcohol tonight but denies any drug use. Patient requests something to help him sleep. Patient denies any somatic complaints. Patient denies any fevers, chills, headache, dizziness, chest pain, shortness of breath, cough, abdominal pain, nausea, vomiting, diarrhea, back pain, neck pain, or any other complaint. Time/Duration: Prior to Arrival Symptom Onset: Gradual Symptom Course: Unchanged Past Medical History - Provider Review Nursing Documentation Reviewed: Yes - Past History Past History: No Previous - Infectious Disease Hx of Infectious Diseases: None - Tetanus Immunization Tetanus Immunization: Unknown - Past Medical History Past Medical History: No Previous - Cardiac Hx Cardiac Disorders: Yes Hx Hypertension: Yes - Pulmonary Hx Respiratory Disorders: No - Neurological Hx Neurological Disorder: No - HEENT Hx HEENT Disorder: No - Renal Hx Renal Disorder: No - Endocrine/Metabolic Hx Endocrine Disorders: No - Hematological/Oncological Hx Blood Transfusions: No Hx Blood Transfusion Reaction: No - Integumentary Hx Dermatological Disorder: No - Musculoskeletal/Rheumatological Hx Falls: No - Gastrointestinal Hx Gastrointestinal Disorders: Yes Hx Gastroesophageal Reflux: Yes Hx Pancreatitis: Yes - Genitourinary/Gynecological Hx Genitourinary Disorders: No Hx Sexually Transmitted Diseases: No - Psychiatric Hx Psychophysiologic Disorder: Yes (ETOH ABUSE ,SMOKING) Hx Substance Use: Yes - Past Surgical History Past Surgical History: No Previous - Surgical History Hx Amputation: No Hx Appendectomy: No Hx Cardiac Catheterization: No Hx Cholecystectomy: No Hx Coronary Stent: No Hx Gastric Bypass Surgery: No Hx Hysterectomy: No Hx Joint Replacement: No Hx Kidney Transplant: No Hx Liver Transplant: No Hx Mastectomy: No Hx Musculoskeletal Surgery: No Hx Open Heart Surgery: No Hx Orthopedic Surgery: No Hx Splenectomy: No Hx Valve Replacement: No - Anesthesia Hx Anesthesia Reactions: No Hx Malignant Hyperthermia: No - Suicidal Assessment Feels Threatened In Home Enviroment: No Family/Social History - Physician Review Nursing Documentation Reviewed: Yes Family/Social History: No Known Family HX Smoking Status: Heavy Smoker > 10 Cigarettes Daily Hx Alcohol Use: Yes Frequency of alcohol use: Few days per week Amount per day: 24 Hx Substance Use: Yes Substance used: hx heroin Allergies/Home Meds Allergies/Adverse Reactions: Allergies No Known Allergies Allergy (Verified 07/31/18 00:49) Review of Systems - Physician Review All systems were reviewed & negative as marked: Yes - Review of Systems Constitutional: absent: Fevers, Night Sweats Respiratory: absent: SOB, Cough Cardiovascular: absent: Chest Pain Gastrointestinal: absent: Abdominal Pain, Diarrhea, Nausea, Vomiting Musculoskeletal: absent: Back Pain, Neck Pain Neurological: absent: Headache, Dizziness Physical Exam Vital Signs Reviewed: Yes Vital Signs Temp Pulse Resp BP Pulse Ox 08/21/18 22:05 97.8 F 67 18 141/93 H 100 Temperature: Afebrile Blood Pressure: Hypertensive Pulse: Regular Respiratory Rate: Normal Appearance: Positive for: Well-Appearing, Non-Toxic, Comfortable Pain Distress: None Mental Status: Positive for: Alert and Oriented X 3 - Systems Exam Head: Present: Atraumatic, Normocephalic Pupils: Present: PERRL Extroacular Muscles: Present: EOMI Conjunctiva: Present: Normal Mouth: Present: Moist Mucous Membranes Neck: Present: Normal Range of Motion Respiratory/Chest: Present: Clear to Auscultation, Good Air Exchange. No: Respiratory Distress, Accessory Muscle Use Cardiovascular: Present: Regular Rate and Rhythm, Normal S1, S2. No: Murmurs Abdomen: No: Tenderness, Distention, Peritoneal Signs Back: Present: Normal Inspection Upper Extremity: Present: Normal Inspection. No: Cyanosis, Edema Lower Extremity: Present: Normal Inspection. No: Edema Neurological: Present: GCS=15, CN II-XII Intact, Speech Normal Skin: Present: Warm, Dry, Normal Color. No: Rashes Psychiatric: Present: Alert, Oriented x 3, Normal Insight, Normal Concentration Medical Decision Making ED Course and Treatment: 08/21/18 22:18 Impression: 43 year old male presents for having no place to sleep Plan: -- Reassess and disposition Prior Visits: Notes and results from previous visits were reviewed. Progress Notes: - Scribe Statement The provider has reviewed the documentation as recorded by the Becca Gutierrez Provider Scribe Attestation: All medical record entries made by the Scribe were at my direction and personall y dictated by me. I have reviewed the chart and agree that the record accurately reflects my personal performance of the history, physical exam, medical decision making, and the department course for this patient. I have also personally directed, reviewed, and agree with the discharge instructions and disposition. Disposition/Present on Arrival - Present on Arrival Any Indicators Present on Arrival: No History of DVT/PE: No History of Uncontrolled Diabetes: No Urinary Catheter: No History of Decub. Ulcer: No History Surgical Site Infection Following: None - Disposition Have Diagnosis and Disposition been Completed?: Yes Diagnosis: Alcohol abuse, Homelessness Disposition: HOME/ ROUTINE Disposition Time: 02:04 Condition: STABLE Discharge Instructions (ExitCare): Alcohol Abuse and Alcoholism (DC) Referrals: PCP,NO [Primary Care Provider] - Follow up with primary [facility] [Outside] - Follow up with primary Forms: [employer] ([place]an)
[2018-08-22 06:07] VITALS: BP 142/78; PULSE 85; RESP 17; TEMP 98.2; O2SAT 98
== END 2018-08-22 06:14 | disposition home or self-care (01) ==
LOC: ED 21:50
DX: F10.10 Alcohol abuse, uncomplicated (principal); Z59.0 Homelessness; I10 Essential (primary) hypertension; F17.210 Nicotine dependence, cigarettes, uncomplicated

== ENCOUNTER 2018-08-23 23:09 | Emergency (ER) | payer OTHER ==
[2018-08-23 23:15] VITALS: BMI 22.9
[2018-08-23] MEDS ORDERED: Sodium Chloride 0.9% 1,000 ML IV STA (23:33)
--- NOTE | 2018-08-23 23:40 | ED PDOC ---
Arrival/HPI - General Chief Complaint: Abdominal Pain Historian: Patient - History of Present Illness Narrative History of Present Illness (Text): 08/23/18 23:40 Felix Glasgow is a 43 year old male with a past medical history of alcohol abuse, chronic gastritis, and hypertension who presents to the emergency department with complaints of abdominal pain. Patient reports he has been experiencing generalized abdominal pain, nausea, and vomiting. Patient states pain is consistent with his chronic abdominal pain. Patient also states he spit up blood. Patient is homeless and is well known to ER staff. The patient denies any fevers, chills, headache, dizziness, chest pain, shortness of breath, dyspnea on exertion, cough, diarrhea, back pain, neck pain, or any other complaint. Time/Duration: Prior to Arrival Symptom Onset: Sudden Activities at Onset: Light Context: Street Past Medical History - Provider Review Nursing Documentation Reviewed: Yes - Past History Past History: No Previous - Infectious Disease Hx of Infectious Diseases: None - Tetanus Immunization Tetanus Immunization: Unknown - Past Medical History Past Medical History: No Previous - Cardiac Hx Cardiac Disorders: Yes Hx Hypertension: Yes - Pulmonary Hx Respiratory Disorders: No - Neurological Hx Neurological Disorder: No - HEENT Hx HEENT Disorder: No - Renal Hx Renal Disorder: No - Endocrine/Metabolic Hx Endocrine Disorders: No - Hematological/Oncological Hx Blood Transfusions: No Hx Blood Transfusion Reaction: No - Integumentary Hx Dermatological Disorder: No - Musculoskeletal/Rheumatological Hx Falls: No - Gastrointestinal Hx Gastrointestinal Disorders: Yes Hx Gastroesophageal Reflux: Yes Hx Pancreatitis: Yes - Genitourinary/Gynecological Hx Genitourinary Disorders: No Hx Sexually Transmitted Diseases: No - Psychiatric Hx Psychophysiologic Disorder: Yes (ETOH ABUSE ,SMOKING) Hx Substance Use: Yes - Past Surgical History Past Surgical History: No Previous - Surgical History Hx Amputation: No Hx Appendectomy: No Hx Cardiac Catheterization: No Hx Cholecystectomy: No Hx Coronary Stent: No Hx Gastric Bypass Surgery: No Hx Hysterectomy: No Hx Joint Replacement: No Hx Kidney Transplant: No Hx Liver Transplant: No Hx Mastectomy: No Hx Musculoskeletal Surgery: No Hx Open Heart Surgery: No Hx Orthopedic Surgery: No Hx Splenectomy: No Hx Valve Replacement: No - Anesthesia Hx Anesthesia Reactions: No Hx Malignant Hyperthermia: No - Suicidal Assessment Feels Threatened In Home Enviroment: No Family/Social History - Physician Review Nursing Documentation Reviewed: Yes Family/Social History: No Known Family HX Smoking Status: Heavy Smoker > 10 Cigarettes Daily Hx Alcohol Use: Yes Amount per day: 24 Hx Substance Use: Yes Substance used: hx heroin Allergies/Home Meds Allergies/Adverse Reactions: Allergies No Known Allergies Allergy (Verified 07/31/18 00:49) Home Medications: Home Meds Medication Instructions Recorded Confirmed RX: No Known Home Med 08/23/18 08/23/18 Review of Systems - Physician Review All systems were reviewed & negative as marked: Yes - Review of Systems Constitutional: absent: Fevers Respiratory: absent: SOB, Cough Cardiovascular: absent: Chest Pain Gastrointestinal: Abdominal Pain, Nausea, Vomiting Musculoskeletal: absent: Back Pain Neurological: absent: Headache, Dizziness Physical Exam Vital Signs Reviewed: Yes Vital Signs Temp Pulse Resp BP Pulse Ox 08/23/18 23:18 98.5 F 90 18 148/87 98 Temperature: Afebrile Blood Pressure: Normal Pulse: Regular Respiratory Rate: Normal Appearance: Positive for: Well-Appearing, Non-Toxic, Comfortable Pain Distress: None Mental Status: Positive for: Alert and Oriented X 3 - Systems Exam Head: Present: Atraumatic, Normocephalic Pupils: Present: PERRL Extroacular Muscles: Present: EOMI Conjunctiva: Present: Normal Mouth: Present: Moist Mucous Membranes Neck: Present: Normal Range of Motion Respiratory/Chest: Present: Clear to Auscultation, Good Air Exchange. No: Respiratory Distress, Accessory Muscle Use Cardiovascular: Present: Regular Rate and Rhythm, Normal S1, S2. No: Murmurs Abdomen: No: Tenderness, Distention, Peritoneal Signs Back: Present: Normal Inspection Upper Extremity: Present: Normal Inspection. No: Cyanosis, Edema Lower Extremity: Present: Normal Inspection. No: Edema Neurological: Present: GCS=15, CN II-XII Intact, Speech Normal Skin: Present: Warm, Dry, Normal Color. No: Rashes Psychiatric: Present: Alert, Oriented x 3, Normal Insight, Normal Concentration Medical Decision Making ED Course and Treatment: 08/23/18 23:40 Impression: Patient is a 43 year old male who presents to the Emergency department with complaints of abdominal pain, nausea, and vomiting. Plan: -- Labs -- Pepcid -- IV Fluids -- Zofran Inj -- Reassess and disposition Prior Visits: Notes and results from previous visits were reviewed. Progress Notes: 08/24/18 03:30 CT Abdomen and Pelvis: Abdomen: The liver, spleen, kidneys, gallbladder, and adrenal glands are unremarkable. The pancreas demonstrates diffuse calcifications consistent with chronic pancreatitis. No focal pancreatic mass is seen. The aorta is within normal limits. There is no evidence of abdominal lymphadenopathy or ascites. There is moderate diffuse fluid distention of bowel wall thickening in the small bowel. Pelvis: Large amount of stool fills the colon. No obstructive or inflammatory bowel changes are seen. The urinary bladder is within normal limits. The other pelvic structures appear grossly intact. There is no evidence of pelvic lymphadenopathy or ascites. A left inguinal hernia is noted containing a small amount of free fluid however. Bones: There are no suspicious osseous abnormalities seen. Impression: 1. Severe constipation. 2. Moderate diffuse enteritis. No evidence of bowel obstruction. 3. Changes consistent with chronic pancreatitis. No evidence of acute tim creatitis at this time. 4. Small left inguinal hernia containing a small amount of free fluid. No bowel involvement is seen at the site. Electronically signed on Aug 24, 2018 2:50:47 AM EST by: Darian Deutsch M.D., MBA Certified By [facility]BR & CBC[employer] Fellowship Trained MRI and CT Specialist - Lab Interpretations I have reviewed the lab results: Yes - RAD Interpretation Knuckler: Radiologist - Medication Orders Current Medication Orders: Sodium Chloride (Sodium Chloride 0.9%) 1,000 mls @ 100 mls/hr IV .Q10H STA Stop: 08/24/18 09:32 Discontinued Medications Famotidine (Pepcid) 20 mg IVP STAT STA Stop: 08/23/18 23:34 Ondansetron HCl (Zofran Inj) 4 mg IVP STAT STA Stop: 08/23/18 23:34 - Scribe Statement The provider has reviewed the documentation as recorded by the Becca Porras training with Catherine All medical record entries made by the Becca were at my direction and personally dictated by me. I have reviewed the chart and agree that the record accurately reflects my personal performance of the history, physical exam, medical decision making, and the department course for this patient. I have also personally directed, reviewed, and agree with the discharge instructions and disposition. Disposition/Present on Arrival - Present on Arrival Any Indicators Present on Arrival: No History of DVT/PE: No History of Uncontrolled Diabetes: No Urinary Catheter: No History of Decub. Ulcer: No History Surgical Site Infection Following: None - Disposition Have Diagnosis and Disposition been Completed?: Yes Diagnosis: Constipation Disposition: HOME/ ROUTINE Disposition Time: 06:25 Patient Problems: Current Active Problems Problem Status Onset Constipation Acute Condition: GOOD Discharge Instructions (ExitCare): Constipation in Adults Forms: [facility] (Sinhala)
[2018-08-24 00:15] LABS: BASO # 0.02 K/mm3 (0.0-2.0); BASO % 0.4 % (0.0-3.0); EOS # 0.1 (0.0-0.7); EOS % 1.3 % (1.5-5.0); LYMPH # 2.9 (1.2-3.4); LYMPH % 55.3 % (22.0-35.0); MEAN CELL VOLUME 83.6 fl (80.0-105.0); MEAN CORPUSCULAR HEMOGLOBIN 25.9 pg (25.0-35.0); MEAN PLATELET VOLUME 9.2 fl (7.0-11.0); MONO # 0.4 (0.1-0.6); MONO % 7.1 % (1.0-6.0); RBC 3.47 10^6/uL (3.5-6.1); RED CELL DISTRIBUTION WIDTH 17.7 % (11.5-14.5); WHITE BLOOD COUNT 5.2 10^3/uL (4.5-11.0)
[2018-08-24 00:24] LABS: INR 1.11; PARTIAL THROMBOPLASTIN TIME 29.9 Seconds (26.9-38.3); PROTHROMBIN TIME 12.3 SECONDS (9.4-12.5)
[2018-08-24 00:43] LABS: ALB/GLOB RATIO 1.1 (1.1-1.8); ALBUMIN 3.9 g/dL (3.0-4.8); ALT/SGPT 14 U/L (7-56); AST/SGOT 45 U/L (17-59); BLOOD UREA NITROGEN 7 mg/dL (7-21); CALCIUM 8.6 mg/dL (8.4-10.5); GFR NON-AFRICAN AMERICAN > 60; LIPASE 14 U/L (23-300)
[2018-08-24] MEDS ORDERED: Iohexol 350 MG/100 ML VIAL ONE (01:17)
[2018-08-24 06:18] VITALS: BP 128/65; PULSE 85; RESP 16; TEMP 98.1; O2SAT 98
--- NOTE | 2018-08-24 11:28 | CT ---
Date of service: 08/24/2018 PROCEDURE: CT Abdomen and Pelvis HISTORY: ABDOMINAL PAIN COMPARISON: Comparison made with prior CT scan abdomen and pelvis 05/23/2018 TECHNIQUE: Contiguous axial images of the abdomen and pelvis performed following intravenous injection of approximately 95 cc Omnipaque 350 contrast material. Reformats generated. Radiation dose: Total exam DLP = 332.03 mGy-cm. This CT exam was performed using one or more of the following dose reduction techniques: Automated exposure control, adjustment of the mA and/or kV according to patient size, and/or use of iterative reconstruction technique. FINDINGS: Note the examination is limited due to motion artifact which obscures the detail particularly involving the large and small is mildly LOWER THORAX: Heart size is mildly enlarged. No significant pericardial effusion. There is a small hiatal hernia. Mild passive/dependent type atelectasis. LIVER: The liver is mildly enlarged measuring over 19 cm in cc dimension.. Liver exhibits mild diffuse fatty hepatic infiltration although improved from prior study. No obvious hepatic masses collections or calcifications. Portal and splenic veins are opacified the. GALLBLADDER AND BILE DUCTS: Question hyperdense sludge or layering gravel within the dependent portion of the gallbladder. PANCREAS: Pancreas is atrophic and contains numerous coarse calcifications consistent with sequela of chronic pancreatitis. Clinical correlation with history recommended. SPLEEN: Unremarkable. No splenomegaly. ADRENALS: There are no adrenal lesions. KIDNEYS AND URETERS: These demonstrate symmetric nephrograms. No evidence of nephrolithiasis or hydronephrosis.. BLADDER: Urinary bladder physiologically distended. No evidence of intraluminal urinary bladder calculi REPRODUCTIVE: Prostate gland measures approximately 4.3 cm in transverse dimension.. APPENDIX: Unremarkable. BOWEL: Evaluation of the bowel is limited due to the lack of oral contrast material as well as significant motion artifact. The stomach is incompletely distended which in part accounts for thick-walled appearance however gastritis or other intrinsic/invasive wall lesion not excluded. Clinical correlation recommended. Multiple on fluid-filled loops of small bowel present some of which are slightly dilated. The are rule out possible enteritis. There is a large amount of stool seen throughout the entire colon consistent with fecal retention/constipation. PERITONEUM: No free or loculated fluid collections. No gross free intraperitoneal air. Small bilateral fat inguinal hernias left larger than right. Both hernias contain fat however the left inguinal hernia also contains is small amount of fluid. LYMPH NODES: Unremarkable. No enlarged lymph nodes. VASCULATURE: Unremarkable. No aortic aneurysm. No aortic atherosclerotic calcification or mural plaque present. BONES: No fracture or destructive lesion. OTHER FINDINGS: None. IMPRESSION: Limited study as described above. The mild hepatomegaly. Mild fatty hepatic infiltration improved from prior exam. Findings consistent with sequela of chronic pancreatitis. Multiple fluid-filled loops of small bowel some of which are slightly dilated. Findings may represent enteritis. Findings also consistent with constipation. Cardiomegaly. Small bilateral inguinal hernias left larger than right of both of which contain some on mesenteric fat however the left inguinal hernia also contains some fluid.
== END 2018-08-24 06:36 | disposition home or self-care (01) ==
LOC: ED 23:09
DX: K59.00 Constipation, unspecified (principal); I10 Essential (primary) hypertension; F17.210 Nicotine dependence, cigarettes, uncomplicated; Z59.0 Homelessness
CPT/HCPCS: 74177; 80053; 83690; 83735; 85025; 85610; 85730; 96374; 96375; 99284; J2405; J7030; Q9967

== ENCOUNTER 2018-09-06 15:12 | Emergency (ER) | payer OTHER ==
[2018-09-06 15:13] VITALS: BMI 22.9
[2018-09-06 15:28] VITALS: RESP 18; TEMP 98
--- NOTE | 2018-09-06 16:10 | ED PDOC ---
Arrival/HPI - General Chief Complaint: Substance Abuse Time Seen by Provider: 09/06/18 15:27 Historian: Patient, EMS - History of Present Illness Narrative History of Present Illness (Text): 09/06/18 16:07 A 43 year old male, whose past medical history includes alcohol abuse, chronic gastritis, and hypertension, presents to the emergency department for substance abuse. Patient reports he took heroin 2 days ago and admitted to drinking today. EMS reports patient has evidence of PCP and heroin abuse. Patient is homeless and is well known to ER staff. Patient denies any fever, shortness of breath, chest pain, or any other complaints. No PMD Time/Duration: Other (earlier today) Symptom Onset: Gradual Symptom Course: Unchanged Activities at Onset: Light Context: Street Past Medical History - Provider Review Nursing Documentation Reviewed: Yes - Past History Past History: No Previous - Infectious Disease Hx of Infectious Diseases: None - Tetanus Immunization Tetanus Immunization: Unknown - Past Medical History Past Medical History: No Previous - Cardiac Hx Cardiac Disorders: Yes Hx Hypertension: Yes - Pulmonary Hx Respiratory Disorders: No - Neurological Hx Neurological Disorder: No - HEENT Hx HEENT Disorder: No - Renal Hx Renal Disorder: No - Endocrine/Metabolic Hx Endocrine Disorders: No - Hematological/Oncological Hx Blood Transfusions: No Hx Blood Transfusion Reaction: No - Integumentary Hx Dermatological Disorder: No - Musculoskeletal/Rheumatological Hx Falls: No - Gastrointestinal Hx Gastrointestinal Disorders: Yes Hx Gastroesophageal Reflux: Yes Hx Pancreatitis: Yes - Genitourinary/Gynecological Hx Genitourinary Disorders: No Hx Sexually Transmitted Diseases: No - Psychiatric Hx Psychophysiologic Disorder: Yes (ETOH ABUSE ,SMOKING) Hx Substance Use: Yes - Past Surgical History Past Surgical History: No Previous - Surgical History Hx Amputation: No Hx Appendectomy: No - Anesthesia Hx Anesthesia Reactions: No Hx Malignant Hyperthermia: No - Suicidal Assessment Feels Threatened In Home Enviroment: No Family/Social History - Physician Review Nursing Documentation Reviewed: Yes Family/Social History: No Known Family HX Smoking Status: Heavy Smoker > 10 Cigarettes Daily Hx Alcohol Use: Yes Amount per day: 24 Hx Substance Use: Yes Substance used: hx heroin Allergies/Home Meds Allergies/Adverse Reactions: Allergies No Known Allergies Allergy (Verified 07/31/18 00:49) Home Medications: Home Meds Medication Instructions Recorded Confirmed No Known Home Med 08/23/18 08/23/18 Review of Systems - Physician Review All systems were reviewed & negative as marked: Yes - Review of Systems Constitutional: absent: Fevers Respiratory: absent: SOB Cardiovascular: absent: Chest Pain Physical Exam Vital Signs Reviewed: Yes Vital Signs Temp Pulse Resp BP Pulse Ox 09/06/18 15:28 98.0 F 91 H 18 148/79 99 Temperature: Afebrile Blood Pressure: Normal Pulse: Tachycardic Respiratory Rate: Normal Mental Status: Positive for: Alert and Oriented X 3 (drowsy but easily arousable ), other (drowsy but easily arousible ) - Systems Exam Head: Present: Atraumatic, Normocephalic Pupils: Present: PERRL Extroacular Muscles: Present: EOMI Conjunctiva: Present: Normal Respiratory/Chest: Present: Clear to Auscultation, Good Air Exchange. No: Respiratory Distress, Accessory Muscle Use Cardiovascular: Present: Regular Rate and Rhythm, Normal S1, S2. No: Murmurs Abdomen: No: Tenderness, Distention, Peritoneal Signs Upper Extremity: Present: Normal Inspection. No: Cyanosis, Edema Lower Extremity: Present: Normal Inspection. No: Edema Neurological: Present: GCS=15, CN II-XII Intact, Speech Normal Skin: Present: Warm, Dry, Normal Color. No: Rashes Psychiatric: Present: Alert, Oriented x 3, Normal Insight, Normal Concentration Medical Decision Making ED Course and Treatment: 09/06/18 16:10 Impression: 43 year old male presenting to the emergency room for substance abuse. Differential Diagnosis included but are not limited to: poly-substance (PCP, alcohol, heroin) abuse Plan: -- Reassess and disposition Prior Visits: Notes and results from previous visits were reviewed. Progress Notes: 09/06/18 18:[address] Quinonez, to reevaluate pending sobriety. - Scribe Statement The provider has reviewed the documentation as recorded by the Scribcassandra Piedra All medical record entries made by the Scribe were at my direction and personally dictated by me. I have reviewed the chart and agree that the record accurately reflects my personal performance of the history, physical exam, medical decision making, and the department course for this patient. I have also personally directed, reviewed, and agree with the discharge instructions and disposition. Disposition/Present on Arrival - Present on Arrival Any Indicators Present on Arrival: No History of DVT/PE: No History of Uncontrolled Diabetes: No Urinary Catheter: No History of Decub. Ulcer: No History Surgical Site Infection Following: None - Disposition Have Diagnosis and Disposition been Completed?: Yes Diagnosis: Polysubstance (excluding opioids) dependence Disposition Time: 18:10 Condition: FAIR Forms: [employer] (Kyrgyz)
[2018-09-06 18:06] VITALS: BP 146/84; PULSE 82; O2SAT 96
== END 2018-09-06 19:04 | disposition home or self-care (01) ==
LOC: ED 15:12
DX: F19.20 Other psychoactive substance dependence, uncomplicated (principal)

== ENCOUNTER 2018-09-08 22:04 | Emergency (ER) | payer OTHER ==
[2018-09-08 22:05] VITALS: BMI 22.9
--- NOTE | 2018-09-09 00:11 | ED PDOC ---
Arrival/HPI - General Chief Complaint: Abdominal Pain Time Seen by Provider: 09/08/18 23:34 Historian: Patient - History of Present Illness Narrative History of Present Illness (Text): 09/09/18 00:09 43 year old male with a past medical history of alcohol abuse, chronic gastritis, and hypertension who presents to the emergency department with complaints of abdominal pain. Patient states today he noticed his pubic area was bulging and painful. Patient states it looked swollen, and would sometimes get better after urinating. Patient denies any fevers, chills, headache, dizziness, chest pain, shortness of breath, cough, nausea, vomiting, diarrhea, back pain, neck pain, or any other complaint. Time/Duration: Prior to Arrival, 24 hours Symptom Onset: Gradual Symptom Course: Unchanged Activities at Onset: Light Past Medical History - Provider Review Nursing Documentation Reviewed: Yes - Past History Past History: No Previous - Infectious Disease Hx of Infectious Diseases: None - Tetanus Immunization Tetanus Immunization: Unknown - Past Medical History Past Medical History: No Previous - Cardiac Hx Cardiac Disorders: Yes Hx Hypertension: Yes - Pulmonary Hx Respiratory Disorders: No - Neurological Hx Neurological Disorder: No - HEENT Hx HEENT Disorder: No - Renal Hx Renal Disorder: No - Endocrine/Metabolic Hx Endocrine Disorders: No - Hematological/Oncological Hx Blood Transfusions: No Hx Blood Transfusion Reaction: No - Integumentary Hx Dermatological Disorder: No - Musculoskeletal/Rheumatological Hx Falls: No - Gastrointestinal Hx Gastrointestinal Disorders: Yes Hx Gastroesophageal Reflux: Yes Hx Pancreatitis: Yes - Genitourinary/Gynecological Hx Genitourinary Disorders: No Hx Sexually Transmitted Diseases: No - Psychiatric Hx Psychophysiologic Disorder: Yes (ETOH ABUSE ,SMOKING) Hx Substance Use: Yes - Past Surgical History Past Surgical History: No Previous - Surgical History Hx Amputation: No Hx Appendectomy: No - Anesthesia Hx Anesthesia Reactions: No Hx Malignant Hyperthermia: No - Suicidal Assessment Feels Threatened In Home Enviroment: No Family/Social History - Physician Review Nursing Documentation Reviewed: Yes Family/Social History: No Known Family HX Smoking Status: Light Smoker < 10 Cigarettes Daily Hx Alcohol Use: Yes Amount per day: 24 Hx Substance Use: Yes Substance used: hx heroin Allergies/Home Meds Allergies/Adverse Reactions: Allergies No Known Allergies Allergy (Verified 09/08/18 23:59) Home Medications: Home Meds Medication Instructions Recorded Confirmed RX: No Known Home Med 08/23/18 09/08/18 Review of Systems - Physician Review All systems were reviewed & negative as marked: Yes - Review of Systems Constitutional: absent: Fevers, Night Sweats Respiratory: absent: SOB, Cough Cardiovascular: absent: Chest Pain Gastrointestinal: Abdominal Pain. absent: Diarrhea, Nausea, Vomiting Musculoskeletal: absent: Back Pain, Neck Pain Neurological: absent: Headache, Dizziness Physical Exam - Physical Exam Narrative Physical Exam (Text): 09/09/18 00:11 Gen: VS reviewed, alert, well developed, well nourished, nontoxic, mild distress. ENT: normal pharynx. Eye: EOMI, PERRL. Neck: no JVD, supple, no adenopathy. CV: regular rate, regular rhythm, no rubs, no murmur, no gallops, S1, S2, pulses equal and strong. Pulm: no distress, clear to auscultation, no wheeze, no rhonchi, breath sounds equal, no rales. Abd: soft, no guarding, no rebound, no rigidity, normal bowel sounds, Mild to moderate left inguinal hernia, mildly tender. Ext: no edema. Skin: good color, no rash, no cyanosis. Psych: responds appropriately to questions, normal affect. Neuro: oriented x 3, CN2-12 intact grossly, motor intact, sensation intact. Medical Decision Making ED Course and Treatment: 09/09/18 00:12 Impression: 43 year old male presents with lower abdominal pain Plan: -- Reassess and disposition Prior Visits: Notes and results from previous visits were reviewed. Progress Notes: Patient has a mild to moderate left inguinal hernia, that is mildly tender. Patient has been informed of hernia reduction procedure and agrees to have it reduced (verbal consent). Patient's left inguinal hernia has been successfully reduced; patient tolerated procedure and will be clinically observed. 09/09/18 01:03 re-eval, patient feels well, pain mostly resolved, stable for discharge for outpatient follow up for reducible left inguinal hernia. 09/11/18 20:56 - Scribe Statement The provider has reviewed the documentation as recorded by the Becca Gutierrez Provider Scribe Attestation: All medical record entries made by the Scribcassandra were at my direction and personally dictated by me. I have reviewed the chart and agree that the record accurately reflects my personal performance of the history, physical exam, medical decision making, and the department course for this patient. I have also personally directed, reviewed, and agree with the discharge instructions and disposition. Disposition/Present on Arrival - Present on Arrival Any Indicators Present on Arrival: No History of DVT/PE: No History of Uncontrolled Diabetes: No Urinary Catheter: No History of Decub. Ulcer: No History Surgical Site Infection Following: None - Disposition Have Diagnosis and Disposition been Completed?: Yes Diagnosis: Reducible left inguinal hernia Disposition: HOME/ ROUTINE Disposition Time: 01:04 Patient Plan: Discharge Condition: STABLE Discharge Instructions (ExitCare): Inguinal and Femoral (Groin) Hernias Additional Instructions: you must follow up with a general surgeon for repair of the hernia. avoid strenuous that may cause the hernia to get worse. return for any problems or concerns especially severe pain in groin area or lower abdomen, vomiting. Referrals: FAMILY PROVIDER,NO [Primary Care Provider] - Follow up with primary Kapil Zaidi MD [Medical Doctor] - Follow up with primary [facility] [Outside] - Follow up with primary Forms: [employer] (Bulgarian)
[2018-09-09 07:00] VITALS: BP 122/71; PULSE 88; RESP 18; TEMP 98; O2SAT 99
== END 2018-09-09 07:00 | disposition home or self-care (01) ==
LOC: ED 22:04
DX: K40.90 Unilateral inguinal hernia, without obstruction or gangrene, not specified as recurrent (principal); I10 Essential (primary) hypertension; F17.210 Nicotine dependence, cigarettes, uncomplicated

== ENCOUNTER 2018-09-11 22:25 | Emergency (ER) | payer OTHER ==
[2018-09-11 22:25] VITALS: BMI 22.9
[2018-09-11 23:00] VITALS: TEMP 98.2
--- NOTE | 2018-09-11 23:45 | ED PDOC ---
Arrival/HPI - General Chief Complaint: Abdominal Pain Time Seen by Provider: 09/11/18 22:35 Historian: Patient - History of Present Illness Narrative History of Present Illness (Text): 09/11/18 22:35 43 year old male with a past medical history of alcohol abuse, chronic gastritis, and hypertension who presents to the emergency department with complaints of abdominal pain due to inguinal hernia. Patient informs the hernia has bulged out. Patient states his symptoms did not improve. Patient denies any fevers, chills, headache, dizziness, chest pain, shortness of breath, cough, nausea, vomiting, diarrhea, back pain, neck pain, or any other complaint. Time/Duration: 1 hour Symptom Onset: Sudden Symptom Course: Unchanged Activities at Onset: Light Context: Home Past Medical History - Provider Review Nursing Documentation Reviewed: Yes - Past History Past History: No Previous - Infectious Disease Hx of Infectious Diseases: None - Tetanus Immunization Tetanus Immunization: Unknown - Past Medical History Past Medical History: No Previous - Cardiac Hx Cardiac Disorders: Yes Hx Hypertension: Yes - Pulmonary Hx Respiratory Disorders: No - Neurological Hx Neurological Disorder: No - HEENT Hx HEENT Disorder: No - Renal Hx Renal Disorder: No - Endocrine/Metabolic Hx Endocrine Disorders: No - Hematological/Oncological Hx Blood Transfusions: No Hx Blood Transfusion Reaction: No - Integumentary Hx Dermatological Disorder: No - Musculoskeletal/Rheumatological Hx Falls: No - Gastrointestinal Hx Gastrointestinal Disorders: Yes Hx Gastroesophageal Reflux: Yes Hx Pancreatitis: Yes - Genitourinary/Gynecological Hx Genitourinary Disorders: No Hx Sexually Transmitted Diseases: No - Psychiatric Hx Psychophysiologic Disorder: Yes (ETOH ABUSE ,SMOKING) Hx Substance Use: Yes - Past Surgical History Past Surgical History: No Previous - Surgical History Hx Amputation: No Hx Appendectomy: No - Anesthesia Hx Anesthesia Reactions: No Hx Malignant Hyperthermia: No - Suicidal Assessment Feels Threatened In Home Enviroment: No Family/Social History - Physician Review Nursing Documentation Reviewed: Yes Family/Social History: No Known Family HX Smoking Status: Light Smoker < 10 Cigarettes Daily Hx Alcohol Use: Yes Amount per day: 24 Hx Substance Use: Yes Substance used: hx heroin Allergies/Home Meds Allergies/Adverse Reactions: Allergies No Known Allergies Allergy (Verified 09/08/18 23:59) Home Medications: Home Meds Medication Instructions Recorded Confirmed No Known Home Med 08/23/18 09/08/18 Review of Systems - Physician Review All systems were reviewed & negative as marked: Yes - Review of Systems Constitutional: absent: Fevers, Night Sweats Respiratory: absent: SOB, Cough Cardiovascular: absent: Chest Pain Gastrointestinal: Abdominal Pain (inguinal hernia). absent: Diarrhea, Nausea, Vomiting Musculoskeletal: absent: Back Pain, Neck Pain Neurological: absent: Headache, Dizziness Physical Exam - Physical Exam Narrative Physical Exam (Text): 09/11/18 22:35 Gen: VS reviewed, alert, well developed, well nourished, nontoxic, mild distress . ENT: normal pharynx. Eye: EOMI, PERRL. Neck: no JVD, supple, no adenopathy. CV: regular rate, regular rhythm, no rubs, no murmur, no gallops, S1, S2, pulses equal and strong. Pulm: no distress, clear to auscultation, no wheeze, no rhonchi, breath sounds equal, no rales. Abd: soft, no guarding, no rebound, no rigidity, normal bowel sounds, Mild to moderate left inguinal hernia, mildly tender. Ext: no edema. Skin: good color, no rash, no cyanosis. Psych: responds appropriately to questions, normal affect. Neuro: oriented x 3, CN2-12 intact grossly, motor intact, sensation intact. Vital Signs Reviewed: Yes Vital Signs Temp Pulse Resp BP Pulse Ox 09/11/18 22:51 98.2 F 71 18 127/77 95 Temperature: Afebrile Blood Pressure: Normal Pulse: Regular Respiratory Rate: Normal Appearance: Positive for: Well-Appearing, Non-Toxic, Comfortable Pain Distress: None Mental Status: Positive for: Alert and Oriented X 3 Medical Decision Making ED Course and Treatment: 09/12/18 05:19 pt awake and alert, pain controlled, tolerating po, stable for dc - Medication Orders Current Medication Orders: Discontinued Medications Ibuprofen (Motrin Tab) 600 mg PO STAT STA Stop: 09/11/18 23:06 Last Admin: 09/11/18 23:34 Dose: Not Given Non-Admin Reason: Patient Refused - Scribe Statement The provider has reviewed the documentation as recorded by the Scribe Darian Porras All medical record entries made by the Scribe were at my direction and personally dictated by me. I have reviewed the chart and agree that the record accurately reflects my personal performance of the history, physical exam, medical decision making, and the department course for this patient. I have also personally directed, reviewed, and agree with the discharge instructions and disposition. Disposition/Present on Arrival - Present on Arrival Any Indicators Present on Arrival: No History of DVT/PE: No History of Uncontrolled Diabetes: No Urinary Catheter: No History of Decub. Ulcer: No History Surgical Site Infection Following: None - Disposition Have Diagnosis and Disposition been Completed?: Yes Diagnosis: Inguinal hernia Disposition: HOME/ ROUTINE Disposition Time: 05:20 Patient Plan: Discharge Condition: STABLE Referrals: PCP,NO [Primary Care Provider] - Follow up with primary Forms: [employer] (Guyanese)
[2018-09-12 04:51] VITALS: BP 106/49; PULSE 71; RESP 19; O2SAT 100
== END 2018-09-12 05:29 | disposition home or self-care (01) ==
LOC: ED 22:25
DX: K40.90 Unilateral inguinal hernia, without obstruction or gangrene, not specified as recurrent (principal)

== ENCOUNTER 2018-09-18 22:26 | Emergency (ER) | payer OTHER ==
[2018-09-18 22:36] VITALS: BMI 25.8
[2018-09-18] MEDS ORDERED: Atrop/Hyosc/Scopal/PB Elixir (120 ml) PO STA (23:38)
--- NOTE | 2018-09-19 00:23 | ED PDOC ---
Arrival/HPI <Bruno Stovall - Last Filed: 09/19/18 00:25> - General Historian: Patient - History of Present Illness Narrative History of Present Illness (Text): 09/19/18 00:20 43yo male with pmhx of alcohol abuse, gastritis, GERD, hypertension, who present with complaint of epigastric abdominal pain with vomiting since this morning. Admits tolerating food this evening. States he did not take any medication for the pain. Denies hematemesis, diarrhea, constipation, chest pain, SOB, diaphoresis, dizziness, ripping/tearing upper back pain, any other complaint. <Rama Alaniz A - Last Filed: 09/19/18 02:31> - General Chief Complaint: Abdominal Pain Time Seen by Provider: 09/18/18 22:44 Past Medical History - Provider Review Nursing Documentation Reviewed: Yes - Past History Past History: No Previous - Infectious Disease Hx of Infectious Diseases: None - Tetanus Immunization Tetanus Immunization: Unknown - Past Medical History Past Medical History: No Previous - Cardiac Hx Cardiac Disorders: Yes Hx Hypertension: Yes - Pulmonary Hx Respiratory Disorders: No - Neurological Hx Neurological Disorder: No - HEENT Hx HEENT Disorder: No - Renal Hx Renal Disorder: No - Endocrine/Metabolic Hx Endocrine Disorders: No - Hematological/Oncological Hx Blood Transfusions: No Hx Blood Transfusion Reaction: No - Integumentary Hx Dermatological Disorder: No - Musculoskeletal/Rheumatological Hx Falls: No - Gastrointestinal Hx Gastrointestinal Disorders: Yes Hx Gastroesophageal Reflux: Yes Hx Pancreatitis: Yes - Genitourinary/Gynecological Hx Genitourinary Disorders: No Hx Sexually Transmitted Diseases: No - Psychiatric Hx Psychophysiologic Disorder: Yes (ETOH ABUSE ,SMOKING) Hx Substance Use: Yes Other/Comment: etoh. substance abuse - Past Surgical History Past Surgical History: No Previous - Surgical History Hx Amputation: No Hx Appendectomy: No - Anesthesia Hx Anesthesia Reactions: No Hx Malignant Hyperthermia: No - Suicidal Assessment Feels Threatened In Home Enviroment: No <Rama Alaniz A - Last Filed: 09/19/18 02:31> Family/Social History - Physician Review Nursing Documentation Reviewed: Yes Family/Social History: Unknown Family HX Smoking Status: Heavy Smoker > 10 Cigarettes Daily Hx Alcohol Use: Yes Frequency of alcohol use: Daily Amount per day: 24 Hx Substance Use: Yes Substance used: hx heroin <Rama Alaniz A - Last Filed: 09/19/18 02:31> Allergies/Home Meds <Bruno Stovall - Last Filed: 09/19/18 00:25> <Rama valdez A - Last Filed: 09/19/18 02:31> Allergies/Adverse Reactions: Allergies No Known Allergies Allergy (Verified 09/08/18 23:59) Review of Systems - Physician Review All systems were reviewed & negative as marked: Yes - Review of Systems Constitutional: Normal Eyes: Normal ENT: Normal Respiratory: Normal Cardiovascular: Normal Gastrointestinal: Abdominal Pain, Nausea, Vomiting. absent: Constipation, Diarrhea, Hematochezia, Hematemesis Genitourinary Male: Normal Musculoskeletal: Normal Skin: Normal Neurological: Normal Endocrine: Normal Hemo/Lymphatic: Normal Psychiatric: Normal <CorbinRama A - Last Filed: 09/19/18 02:31> Physical Exam Vital Signs Reviewed: Yes Temperature: Afebrile Blood Pressure: Normal Pulse: Regular Respiratory Rate: Normal Appearance: Positive for: Well-Appearing, Non-Toxic, Comfortable Pain Distress: None Mental Status: Positive for: Alert and Oriented X 3 - Systems Exam Head: Present: Atraumatic, Normocephalic Pupils: Present: PERRL Extroacular Muscles: Present: EOMI Conjunctiva: Present: Normal Mouth: Present: Moist Mucous Membranes Neck: Present: Normal Range of Motion Respiratory/Chest: Present: Clear to Auscultation, Good Air Exchange. No: Respiratory Distress, Accessory Muscle Use Cardiovascular: Present: Regular Rate and Rhythm, Normal S1, S2. No: Murmurs Abdomen: Present: Tenderness (Epigastric tenderness), Normal Bowel Sounds, Guarding (Voluntary), Other (Soft). No: Distention, Peritoneal Signs, Rebound, McBurney's Point Tender, Rovsing's Sign Present Back: Present: Normal Inspection Upper Extremity: Present: Normal Inspection. No: Cyanosis, Edema Lower Extremity: Present: Normal Inspection. No: Edema Neurological: Present: GCS=15, CN II-XII Intact, Speech Normal Skin: Present: Warm, Dry, Normal Color. No: Rashes Psychiatric: Present: Alert, Oriented x 3, Normal Insight, Normal Concentration <CorbinRama A - Last Filed: 09/19/18 02:31> Medical Decision Making - Medication Orders Current Medication Orders: Discontinued Medications Belladonna/Phenobarbital ( Elixir) 5 ml PO STAT STA Stop: 09/18/18 23:39 Last Admin: 09/18/18 23:57 Dose: 5 ml Famotidine (Pepcid) 20 mg PO STAT STA Stop: 09/18/18 23:38 Last Admin: 09/18/18 23:57 Dose: 20 mg Lidocaine HCl (Lidocaine 2% Viscous) 15 ml PO ONCE STA Stop: 09/18/18 23:38 Last Admin: 09/18/18 23:57 Dose: 15 ml Ondansetron HCl (Zofran Odt) 4 mg PO STAT STA Stop: 09/18/18 23:38 Last Admin: 09/18/18 23:43 Dose: 4 mg <Bruno Stovall - Last Filed: 09/19/18 00:25> - Medication Orders Current Medication Orders: Discontinued Medications Belladonna/Phenobarbital ( Elixir) 5 ml PO STAT STA Stop: 09/18/18 23:39 Last Admin: 09/18/18 23:57 Dose: 5 ml Famotidine (Pepcid) 20 mg PO STAT STA Stop: 09/18/18 23:38 Last Admin: 09/18/18 23:57 Dose: 20 mg Lidocaine HCl (Lidocaine 2% Viscous) 15 ml PO ONCE STA Stop: 09/18/18 23:38 Last Admin: 09/18/18 23:57 Dose: 15 ml Ondansetron HCl (Zofran Odt) 4 mg PO STAT STA Stop: 09/18/18 23:38 Last Admin: 09/18/18 23:43 Dose: 4 mg <Rama Alaniz - Last Filed: 09/19/18 02:31> - PA / PROTOCOL OFFICER / Resident Statement / has reviewed & agrees with the documentation as recorded. <Bruno Stovall - Last Filed: 09/19/18 00:25> Disposition/Present on Arrival <Bruno Stovall - Last Filed: 09/19/18 00:25> - Present on Arrival Any Indicators Present on Arrival: No History of DVT/PE: No History of Uncontrolled Diabetes: No Urinary Catheter: No History of Decub. Ulcer: No History Surgical Site Infection Following: None - Disposition Have Diagnosis and Disposition been Completed?: Yes Disposition Time: 02:30 Patient Plan: Discharge <Rama Alaniz - Last Filed: 09/19/18 02:31> - Disposition Diagnosis: Abdominal pain Disposition: HOME/ ROUTINE Condition: STABLE Discharge Instructions (ExitCare): Acute Abdomen (Belly Pain), Nausea and Vomiting, Adult (DC) Additional Instructions: Follow up with the clinic Return to ED for any new symptoms Prescriptions: Dicyclomine [Bentyl] 20 mg PO BID #20 tab Ondansetron ODT [Zofran ODT] 4 mg PO Q6 #6 odt Referrals: Juli Cr MD [Medical Doctor] - Follow up with primary Forms: [employer] (Arabic)
[2018-09-19 01:54] LABS: BASO # 0.05 K/mm3 (0.0-2.0); BASO % 0.7 % (0.0-3.0); EOS # 0.1 (0.0-0.7); EOS % 0.9 % (1.5-5.0); LYMPH # 2.5 (1.2-3.4); LYMPH % 36.3 % (22.0-35.0); MEAN CELL VOLUME 84.5 fl (80.0-105.0); MEAN CORPUSCULAR HEMOGLOBIN 25.9 pg (25.0-35.0); MEAN CORPUSCULAR HGB CONC 30.6 g/dl (31.0-37.0); MEAN PLATELET VOLUME 9.3 fl (7.0-11.0); MONO # 0.5 (0.1-0.6); MONO % 6.9 % (1.0-6.0); RBC 3.48 10^6/uL (3.5-6.1); RED CELL DISTRIBUTION WIDTH 19.4 % (11.5-14.5); WHITE BLOOD COUNT 6.8 10^3/uL (4.5-11.0)
[2018-09-19 02:05] LABS: INR 1.2; PARTIAL THROMBOPLASTIN TIME 30.2 Seconds (26.9-38.3); PROTHROMBIN TIME 13.3 SECONDS (9.4-12.5)
[2018-09-19 02:15] VITALS: BP 162/99; PULSE 71; RESP 18; O2SAT 98
[2018-09-19 02:59] LABS: ALB/GLOB RATIO 1.1 (1.1-1.8); ALBUMIN 3.9 g/dL (3.0-4.8); ALT/SGPT 22 U/L (7-56); AST/SGOT 45 U/L (17-59); BLOOD UREA NITROGEN 4 mg/dL (7-21); GFR NON-AFRICAN AMERICAN > 60; LIPASE < 10 U/L (23-300)
== END 2018-09-19 03:52 | disposition home or self-care (01) ==
LOC: ED 22:26
DX: R10.9 Unspecified abdominal pain (principal); I10 Essential (primary) hypertension; K21.9 Gastro-esophageal reflux disease without esophagitis; F17.210 Nicotine dependence, cigarettes, uncomplicated

== ENCOUNTER 2018-09-24 12:19 | Inpatient (IN) | payer MEDICAID, OTHER | END 2018-09-26 19:32 | disposition home or self-care (01) | LOC: ED 12:19 → ERH 19:26 → 5RSO 22:03 ==

== ENCOUNTER 2018-10-31 00:18 | Emergency (ER) | payer MEDICAID, OTHER ==
[2018-10-31 00:18] VITALS: BMI 25.8
[2018-10-31 00:48] VITALS: BP 134/76; PULSE 70; RESP 18; TEMP 97.7; O2SAT 97
--- NOTE | 2018-10-31 01:25 | ED PDOC ---
Arrival/HPI - General Chief Complaint: Male Genitourinary Time Seen by Provider: 10/31/18 00:57 Historian: Patient - History of Present Illness Narrative History of Present Illness (Text): 10/31/18 01:10 43 year old male, whose past medical history includes Alcohol Abuse, Gastritis, Duodenal Ulcer, HTN, Pancreatitis, presents to the emergency department complaining of unable to reduce left inguinal hernia for the past few days. Patient reports this is not new, but is unable to reduce it himself. Patient denies any fever, chills, chest pain, shortness of breath, nausea, vomiting, diarrhea, urinary symptoms, back pain, neck pain, headache, dizziness, or any other complaints. Time/Duration: Other (few days) Symptom Onset: Gradual Symptom Course: Intermittent Activities at Onset: Light Past Medical History - Provider Review Nursing Documentation Reviewed: Yes - Past History Past History: No Previous - Infectious Disease Hx of Infectious Diseases: None - Tetanus Immunization Tetanus Immunization: Unknown - Past Medical History Past Medical History: No Previous - Cardiac Hx Cardiac Disorders: Yes Hx Hypertension: Yes - Pulmonary Hx Respiratory Disorders: No - Neurological Hx Neurological Disorder: No - HEENT Hx HEENT Disorder: No - Renal Hx Renal Disorder: No - Endocrine/Metabolic Hx Endocrine Disorders: No - Hematological/Oncological Hx Blood Transfusions: No Hx Blood Transfusion Reaction: No - Integumentary Hx Dermatological Disorder: No - Musculoskeletal/Rheumatological Hx Falls: No - Gastrointestinal Hx Gastrointestinal Disorders: Yes Hx Gastroesophageal Reflux: Yes Hx Pancreatitis: Yes - Genitourinary/Gynecological Hx Genitourinary Disorders: No Hx Sexually Transmitted Diseases: No - Psychiatric Hx Psychophysiologic Disorder: Yes (ETOH ABUSE ,SMOKING) Hx Substance Use: Yes Other/Comment: etoh. substance abuse - Past Surgical History Past Surgical History: No Previous - Surgical History Hx Amputation: No Hx Appendectomy: No - Anesthesia Hx Anesthesia Reactions: No Hx Malignant Hyperthermia: No - Suicidal Assessment Feels Threatened In Home Enviroment: No Family/Social History - Physician Review Nursing Documentation Reviewed: Yes Family/Social History: No Known Family HX Smoking Status: Heavy Smoker > 10 Cigarettes Daily Hx Alcohol Use: Yes Frequency of alcohol use: Daily Amount per day: 24 Hx Substance Use: Yes Substance used: Heroin, Marijuana Allergies/Home Meds Allergies/Adverse Reactions: Allergies No Known Allergies Allergy (Verified 09/08/18 23:59) Review of Systems - Physician Review All systems were reviewed & negative as marked: Yes - Review of Systems Constitutional: absent: Fevers, Other (chills) Respiratory: absent: SOB Cardiovascular: absent: Other Gastrointestinal: absent: Diarrhea, Nausea, Vomiting Genitourinary Male: Other (left inguinal hernia). absent: Dysuria, Frequency, Hematuria Musculoskeletal: absent: Back Pain, Neck Pain Neurological: absent: Headache, Dizziness Physical Exam Vital Signs Reviewed: Yes Vital Signs Temp Pulse Resp BP Pulse Ox 10/31/18 00:44 97.7 F 70 18 134/76 97 Temperature: Afebrile Blood Pressure: Normal Pulse: Regular Respiratory Rate: Normal Appearance: Positive for: Well-Appearing, Non-Toxic, Comfortable Pain Distress: None Mental Status: Positive for: Alert and Oriented X 3 - Systems Exam Head: Present: Atraumatic, Normocephalic Pupils: Present: PERRL Extroacular Muscles: Present: EOMI Conjunctiva: Present: Normal Mouth: Present: Moist Mucous Membranes Neck: Present: Normal Range of Motion Respiratory/Chest: Present: Clear to Auscultation, Good Air Exchange. No: Respiratory Distress, Accessory Muscle Use Cardiovascular: Present: Regular Rate and Rhythm, Normal S1, S2. No: Murmurs Abdomen: No: Tenderness, Distention, Peritoneal Signs Genitourinary Male: Present: Hernias (left inguinal hernia reduced easily (EDDIE jaramillo)) Neurological: Present: GCS=15, Speech Normal Skin: Present: Warm, Dry, Normal Color. No: Rashes Psychiatric: Present: Alert, Oriented x 3 Medical Decision Making ED Course and Treatment: 10/31/18 01:10 Impression: 43 year old male presents complaining of not being able to reduce his left inguinal hernia today. Plan: -- Reduced hernia (EDDIE Gracia Chaperoned) -- Reassess and disposition Prior Visits: Notes and results from previous visits were reviewed. Progress Notes: Reduced left inguinal hernia easily. Patient denies any pain or any other complaints at this time. Patient is stable for discharge. Patient was instructed to follow up with physician or return if symptoms worsen or new concerning symptoms arise. - Scribe Statement The provider has reviewed the documentation as recorded by the Becca Molina Provider Scribe Attestation: All medical record entries made by the Becca were at my direction and personally dictated by me. I have reviewed the chart and agree that the record accurately reflects my personal performance of the history, physical exam, medical decision making, and the department course for this patient. I have also personally directed, reviewed, and agree with the discharge instructions and disposition. Disposition/Present on Arrival - Present on Arrival Any Indicators Present on Arrival: No History of DVT/PE: No History of Uncontrolled Diabetes: No Urinary Catheter: No History of Decub. Ulcer: No History Surgical Site Infection Following: None - Disposition Have Diagnosis and Disposition been Completed?: Yes Diagnosis: Inguinal hernia Disposition: HOME/ ROUTINE Disposition Time: :23 Patient Plan: Discharge Condition: IMPROVED Discharge Instructions (ExitCare): Inguinal and Femoral (Groin) Hernias Referrals: Ernesto Glasgow MD [Staff Provider] - Follow up with primary Juli Cr MD [Medical Doctor] - Follow up with primary [facility] [Outside] - Follow up with primary [facility] at [facility] [Outside] - Follow up with primary Forms: [employer] ([place])
== END 2018-10-31 01:28 | disposition home or self-care (01) ==
LOC: ED 00:18
DX: K40.90 Unilateral inguinal hernia, without obstruction or gangrene, not specified as recurrent (principal)

== ENCOUNTER 2018-12-03 20:49 | Emergency (ER) | payer SELFPAY ==
[2018-12-03 20:50] VITALS: BMI 25.8
[2018-12-03 22:47] VITALS: TEMP 98.5
--- NOTE | 2018-12-03 23:47 | ED PDOC ---
Arrival/HPI - General Chief Complaint: Medical Clearance Time Seen by Provider: 12/03/18 23:09 Historian: Patient - History of Present Illness Narrative History of Present Illness (Text): 12/03/18 23:47 Felix Glasgow is a 43 year old male with a past medical history of alcohol abuse, chronic gastritis, and hypertension who presents to the emergency department with complaining of upper body pain tonight. Patient denies any fever , chills, shortness of breath, nausea, vomiting, diarrhea, urinary symptoms, back pain, neck pain, headache, dizziness, or any other complaints. Symptom Onset: Gradual Symptom Course: Unchanged Activities at Onset: Light Context: Home Past Medical History - Provider Review Nursing Documentation Reviewed: Yes - Past History Past History: No Previous - Infectious Disease Hx of Infectious Diseases: None - Tetanus Immunization Tetanus Immunization: Unknown - Past Medical History Past Medical History: No Previous - Cardiac Hx Cardiac Disorders: Yes Hx Hypertension: Yes - Pulmonary Hx Respiratory Disorders: No - Neurological Hx Neurological Disorder: No - HEENT Hx HEENT Disorder: No - Renal Hx Renal Disorder: No - Endocrine/Metabolic Hx Endocrine Disorders: No - Hematological/Oncological Hx Blood Transfusions: No Hx Blood Transfusion Reaction: No - Integumentary Hx Dermatological Disorder: No - Musculoskeletal/Rheumatological Hx Falls: No - Gastrointestinal Hx Gastrointestinal Disorders: Yes Hx Gastroesophageal Reflux: Yes Hx Pancreatitis: Yes - Genitourinary/Gynecological Hx Genitourinary Disorders: No Hx Sexually Transmitted Diseases: No - Psychiatric Hx Psychophysiologic Disorder: Yes (ETOH ABUSE ,SMOKING) Hx Substance Use: Yes Other/Comment: etoh. substance abuse - Past Surgical History Past Surgical History: No Previous - Surgical History Hx Amputation: No Hx Appendectomy: No - Anesthesia Hx Anesthesia Reactions: No Hx Malignant Hyperthermia: No - Suicidal Assessment Feels Threatened In Home Enviroment: No Family/Social History - Physician Review Nursing Documentation Reviewed: Yes Family/Social History: Unknown Family HX Smoking Status: Heavy Smoker > 10 Cigarettes Daily Hx Alcohol Use: Yes Amount per day: 24 Hx Substance Use: Yes Substance used: Heroin, Marijuana Allergies/Home Meds Allergies/Adverse Reactions: Allergies No Known Allergies Allergy (Verified 09/08/18 23:59) Review of Systems - Physician Review All systems were reviewed & negative as marked: Yes - Review of Systems Constitutional: Normal. absent: Fevers Eyes: Normal ENT: Normal Respiratory: Normal. absent: SOB, Cough Cardiovascular: Normal. absent: Chest Pain Gastrointestinal: Normal. absent: Abdominal Pain, Diarrhea, Nausea, Vomiting Genitourinary Male: Normal. absent: Dysuria, Frequency, Urinary Output Changes Musculoskeletal: Other (+upper body pain). absent: Back Pain, Neck Pain Skin: Normal. absent: Rash Neurological: Normal. absent: Headache, Dizziness Endocrine: Normal Hemo/Lymphatic: Normal Psychiatric: Normal Physical Exam Vital Signs Reviewed: Yes Vital Signs Temp Pulse Resp BP Pulse Ox 12/03/18 22:45 98.5 F 80 18 157/90 H 99 Temperature: Afebrile Blood Pressure: Normal Pulse: Regular Respiratory Rate: Normal Appearance: Positive for: Well-Appearing, Non-Toxic, Comfortable Pain Distress: None Mental Status: Positive for: Alert and Oriented X 3 - Systems Exam Head: Present: Atraumatic, Normocephalic Pupils: Present: PERRL Extroacular Muscles: Present: EOMI Conjunctiva: Present: Normal Mouth: Present: Moist Mucous Membranes Neck: Present: Normal Range of Motion Respiratory/Chest: Present: Clear to Auscultation, Good Air Exchange. No: Respiratory Distress, Accessory Muscle Use Cardiovascular: Present: Regular Rate and Rhythm, Normal S1, S2. No: Murmurs Abdomen: No: Tenderness, Distention, Peritoneal Signs Back: Present: Normal Inspection Upper Extremity: Present: Normal Inspection. No: Cyanosis, Edema Lower Extremity: Present: Normal Inspection. No: Edema Neurological: Present: GCS=15, CN II-XII Intact, Speech Normal Skin: Present: Warm, Dry, Normal Color. No: Rashes Psychiatric: Present: Alert, Oriented x 3, Normal Insight, Normal Concentration Medical Decision Making ED Course and Treatment: 12/03/18 23:47 Impression: 43 year old male complaining of upper body pain. Plan: -- CXR -- Reassess and disposition Prior Visits: Notes and results from previous visits were reviewed. Progress Notes: - RAD Interpretation Radiology Orders: 12/03/18 23:25 CHEST TWO VIEWS (PA/LAT) [RAD] Stat - Scribe Statement The provider has reviewed the documentation as recorded by the Scribcassandra Zhou Provider Scribe Attestation: All medical record entries made by the Scribe were at my direction and personally dictated by me. I have reviewed the chart and agree that the record accurately reflects my personal performance of the history, physical exam, medical decision making, and the department course for this patient. I have also personally directed, reviewed, and agree with the discharge instructions and disposition. Disposition/Present on Arrival - Present on Arrival Any Indicators Present on Arrival: No History of DVT/PE: No History of Uncontrolled Diabetes: No Urinary Catheter: No History of Decub. Ulcer: No History Surgical Site Infection Following: None - Disposition Have Diagnosis and Disposition been Completed?: Yes Diagnosis: Chest pain, musculoskeletal Disposition: HOME/ ROUTINE Disposition Time: 06:30 Condition: GOOD Discharge Instructions (ExitCare): Costochondritis (DC), Chest Pain (ED) Referrals: [facility] at [facility] [place] [Outside] - Follow up with primary Forms: [employer] ([place]z)
[2018-12-04 03:05] VITALS: O2SAT 98
[2018-12-04 06:10] VITALS: BP 147/98; PULSE 72; RESP 14
--- NOTE | 2018-12-04 10:26 | RAD ---
Date of service: 12/04/2018 HISTORY: pain COMPARISON: 09/24/2018 TECHNIQUE: Chest PA and lateral views FINDINGS: LUNGS: No active pulmonary disease. PLEURA: No significant pleural effusion identified. No pneumothorax apparent. CARDIOVASCULAR: No aortic atherosclerotic calcification present. Normal cardiac size. No pulmonary vascular congestion. OSSEOUS STRUCTURES: Dextroscoliosis-similar VISUALIZED UPPER ABDOMEN: Normal. OTHER FINDINGS: None. IMPRESSION: No active disease. Other findings as above.
== END 2018-12-04 06:29 | disposition home or self-care (01) ==
LOC: ED 20:49
DX: R07.89 Other chest pain (principal); I10 Essential (primary) hypertension; F17.210 Nicotine dependence, cigarettes, uncomplicated
CPT/HCPCS: 71046; 96372; 99283; J1885